=== PATIENT | male | born 1940 | race Caucasian/White ===

== ENCOUNTER 2016-10-19 11:04 | Inpatient (IN) | payer MEDICARE, BC ==
[2016-10-19] MEDS ORDERED: Famotidine 20 MG/2 ML SDV IVPUSH ONE (11:06)
--- NOTE | 2016-10-19 11:06 | EDM.PDOC ---
ED HISTORY OF PRESENT ILLNESS - General Chief Complaint: Respiratory Problem Stated Complaint: shortness of breath Time Seen by Provider: 10/19/16 11:05 Source of Information: Reports: Patient, Family (), Old records ([facility] chart/EMR) History Limitations: Reports: Respiratory distress - History of Present Illness INITIAL COMMENTS - FREE TEXT/NARRATIVE: Patient was brought to the emergency room via private automobile by his after brief initial evaluation by his regular provider, Tr Newman PA-C, at the [facility], with no treatment given in that clinic. The patient apparently was provided an IM injection of either Depo-Medrol and/or IM Rocephin on 10/14/16. The patient has had some progressive mostly clear productive cough during the last week with progressive dyspnea since about 8:30 this morning despite taking his triple nebulizer treatment and also 1000 mg of Tylenol at about 9 a.m. He also took his other morning medications. The patient denies any chest pain/pressure, heart flutter, dizziness, orthostasis, orthopnea, diaphoresis, paresthesias, recent decreased exercise tolerance, or any other anginal-type symptoms, although his overall activity level is low secondary to his O2 dependent COPD. The patient was recently hospitalized in this facility in June or with some mild increased dependent edema over the last few days. The patient has increased his home O2 from 2 L per minute to 3 L per minute by nasal cannula this morning. No recent history of abdominal pain, heartburn, nausea, diarrhea, melena, gross hematochezia, or any food intolerance, including fatty foods, etc., although the patient did have some mild viral GE symptoms last week. He did get his influenza booster this season with no known exposure to infection. He denies any recent fever, etc. He does complain of some mild diffuse arthralgias Timing/Duration: Reports: Week(s): (As above), Getting worse Severity: severe (Dyspnea) Location, General: Reports: generalized (Arthralgias as above). Denies: face, neck, chest, abdomen, back, pelvis, upper extremity, left, upper extremity, right Quality: Reports: Ache Improves with: Reports: None Worsens with: Reports: None Context, General: Reports: Other (As above) Associated Symptoms (General): Reports: cough, cough w sputum, shortness of breath. Denies: confusion, chest pain, diaphoresis, fever/chills, headaches, loss of appetite, malaise, nausea/vomiting, weakness Treatments GRAVITY PROSPECTING OBSERVER: Reports: Acetaminophen, Other medication(s) (As above) - Related Data Allergies/ADRs: Allergies Allergy/AdvReac Type Severity Reaction Status Date / Time celecoxib Allergy Cannot Verified 06/29/16 12:00 Remember diltiazem Allergy Cannot Verified 06/29/16 12:00 Remember metoprolol Allergy Cannot Verified 06/29/16 12:00 Remember Tmxydad-Ati-Tlj Reductase Allergy Muscle Verified 10/19/16 11:35 Inhibitor Aches tiotropium bromide Allergy URINARY Verified 10/19/16 11:39 [From Spiriva with RETENTION HandiHaler] Home Meds: Home Meds Albuterol/Ipratropium [DuoNeb 3.0-0.5 MG/3 ML] 3 ml INH DAILY@1200 05/04/14 [ History] Allopurinol [Zyloprim] 300 mg PO DAILY 05/04/14 [History] Arformoterol [Brovana] 2 ml INH BID 05/04/14 [History] Aspirin [Jaswinder Chewable Aspirin] 81 mg PO DAILY 05/04/14 [History] Bisoprolol Fumarate [Zebeta] 3 tab PO DAILY 05/04/14 [History] Budesonide [Pulmicort] 2 ml INH BID 05/04/14 [History] Calcium Carbonate [Tums Extra Strength] 750 mg PO ASDIRECTED PRN 05/04/14 [ History] Cholecalciferol (Vitamin D3) [Vitamin D] 400 unit PO BID 05/04/14 [History] Furosemide [Furosemide] 40 mg PO DAILY 05/04/14 [History] Gabapentin [Neurontin] 300 mg PO TID 05/04/14 [History] Multivitamin [Multivitamins] 1 tab PO DAILY 05/04/14 [History] Omeprazole 20 mg PO BID 05/04/14 [History] predniSONE [Prednisone] 2 tab PO DAILY 05/04/14 [History] Lancets 1 strip .XX ASDIRECTED 10/01/14 [History] Albuterol/Ipratropium [Combivent Respimat] 1 puff INH QID 06/29/16 [History] Carboxymethylcellulose Sodium [Refresh Tears 0.5%] 1 drop EYEBOTH TID 06/29/16 [ History] Furosemide 20 mg PO DAILY@1200 06/29/16 [History] Ibuprofen 200 mg PO Q6HR PRN 06/29/16 [History] Insulin Detemir [Levemir Flextouch] 17 units SUBCUT QAM 06/29/16 [History] SitaGLIPtin [Januvia] 100 mg PO DAILY 06/29/16 [History] hydrOXYzine Pamoate [Hydroxyzine Pamoate] 25 mg PO TID PRN 06/29/16 [History] Albuterol Sulfate 2.5 mg NEB Q4H PRN 10/19/16 [History] Doxycycline [Vibramycin] 100 mg PO BID 10/19/16 [History] Hydrocortisone Acetate [Anusol-Hc] 25 mg RECTAL BID 10/19/16 [History] Past Medical History HEENT History: Reports: Cataract, Hard of hearing, Impaired vision, Macular degeneration, Other (see below). 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 Denies: Afib, Blood clots/VTE/DVT, Bypass, PR, PTCA, Stents, Syncope Other Cardiovascular History: PVCs, bigeminy, complete right bundle branch block , PACs, cardiomegaly with diastolic dysfunction by echocardiogram, recurrent CHF , tricuspid valve insufficiency, infrarenal abdominal aortic aneurysm initially diagnosed in 2006, chronic lymphedema of the lower extremities Respiratory History: Reports: Bronchitis, recurrent, COPD, Pneumonia, recurrent , Pulmonary fibrosis, Sleep apnea, Other (see below). Denies: Intubation, previous, PE, Pneumothorax, TB Other Respiratory History: O2 and steroid-dependent COPD with pulmonary fibrosis by chest x-ray, nasal CPAP therapy at 16 cm water pressure with 2 L per minute oxygen bleed Gastrointestinal History: Reports: Chronic constipation, Colon polyp, Diverticulosis, Gastritis, GERD, Helicobacter pylori, PUD, Other (see below). Denies: Celiac disease, Cholelithiasis, Chronic diarrhea, Fecal incontinence, GI bleed, Hepatitis, Hiatal hernia, Inflammatory bowel disease, Irritable bowel syndrome, Jaundice, Pancreatitis Other Gastrointestinal History: Severe diverticulosis of the descending colon by colonoscopy on 09/25/09, GERD with history of esophagitis and upper GI bleed on 09/20/09, peptic ulcer and duodenitis by EGD with previously treated H. pylori , umbilical hernia, benign hepatic cysts by CT scan on 05/26/98 Genitourinary History: Reports: Acute renal failure, BPH, Chronic renal insuffiency, Diabetic nephropathy, Prostate disorder, Renal disease, Other (see below). Denies: Dialysis, Renal calculus, STD, Urinary incontinence, UTI, recurrent Other Genitourinary History: Acute renal failure with secondary hypotension secondary to NSAIDs use on 10/01/14, BPH with history of PSA elevation, end- stage renal disease-stage III, erectile dysfunction Musculoskeletal History: Reports: Arthritis, Back pain, chronic, Fracture, Gout , Neck pain, chronic, Osteoarthritis, Osteoporosis, Other (see below). Denies: Amputation, RA, SLE Other Musculoskeletal History: Spinal stenosis at L4-5 with disc prolapse, positive NENO however no known SLE, proximal left fibular fracture in September 2014 Neurological History: Reports: Neuropathy, diabetic, Neuropathy, peripheral. Denies: Alzheimers disease, Brain injury, Cerebral aneurysms, Concussion, CVA, Headaches, chronic, Head trauma, Migraines, MS, Parkinson's, Seizure, TIA Psychiatric History: Reports: None. Denies: Abuse, victim of, ADD, ADHD, Addiction, Anxiety, Dementia, Depression, Panic attack, Psych Hospitalization(s) , PTSD, Suicide attempt, Suicidal ideation Endocrine/Metabolic History: Reports: Diabetes, type II, IDDM, Osteoporosis. Denies: Diabetes, type I, Hypothyroidism Hematologic History: Reports: None. Denies: Anemia, Blood transfusion(s), Iron deficiency Immunologic History: Reports: None. Denies: AIDS, HIV, SLE Oncologic (Cancer) History: Reports: Squamous cell carcinoma, Other (see below) . 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 Denies: Eczema, Psoriasis - Infectious Disease History Infectious Disease History: Reports: Chicken pox, Helicobacter pylori, Mumps, Shingles. Denies: C-difficile, Measles, Meningitis, Mononucleosis, MRSA, Pertussis (whooping cough), Rheumatic Fever, Rubella, Scarlet fever, TB, VRE - Past Surgical History Head Surgeries/Procedures: Reports: None HEENT Surgical History: Reports: Cataract surgery, Laser surgery, Oral surgery, Tonsillectomy, Other (see below). Denies: Detached retina, Eye surgery, LASIK, Myringotomy w tube(s), Naso-sinus surgery Other HEENT Surgeries/Procedures: Right cataract surgery on 05/23/03, left cataract surgery on 06/12/04, tonsillectomy at age 9, left eye YAG treatment, complete teeth extraction Cardiovascular Surgical History: Reports: None. Denies: Pacer, Varicose Respiratory Surgical History: Reports: None. Denies: Lung Biopsies GI Surgical History: Reports: Colonoscopy, EGD, Other (see below). Denies: Appendectomy, Cholecystectomy, Hernia, inguinal, Hernia repair/other Other GI Surgeries/Procedures: Last Colonoscopy and EGD on 09/25/09, small bowel series on 10/02/09 Male Surgical History: Reports: Prostatectomy, TURP-Transurethral resection of prostate, Other (see below). Denies: Circumcision, Vasectomy Other Male Surgeries/Procedures: Suprapubic partial prostatectomy in September 2004 with no evidence of prostate cancer despite previous PSA elevation Endocrine Surgical History: Reports: None. Denies: Thyroid biopsy Neurological Surgical History: Reports: Lumbar spine, Other (see below). Denies : C-Spine Other Neurological Surgeries/Procedures: Unknown type of back surgeries x2 in the lumbar region Musculoskeletal Surgical History: Reports: None. Denies: Amputation, Arthroscopic procedure, Carpal tunnel, Ganglion cyst, Joint replacement, ORIF, Shoulder surgery Oncologic Surgical History: Reports: Other (see below) Other Oncologic Surgeries/Procedures: Mohs procedure as above Dermatological Surgical History: Reports: Skin biopsy, Other (see below) Other Dermatological Surgeries/Procedures: Mohs procedure as above - Past Imaging History Past Imaging History: Reports: Cardiac echo (Last echocardiogram at [facility] in September 2014 with ejection fraction of 60% and results as above, previous echocardiogram on 12/17/11), Carotid US (09/13/11), CAT scan (Negative CTA of the chest on 07/01/16, CT scan of the abdomen and pelvis with last evaluation in November 2013, CT of the chest on 05/26/98), DEXA scan (01/24/09), Holter monitor (12/18/03), MRI (Lumbar spine on 05/03/06), PFT (Last on 06/30/06) , Sleep study (11/27/11), Stress testing (Dobutamine Cardiolite stress test on 09/02 with evidence of inferior wall ischemia and ejection fraction of 55%), Ultrasound (Bilateral renal ultrasound in September 2014), Venous doppler (Last venous Doppler studies of the lower extremities on 06/29/16 with previous evaluation at [facility] in September 2014), Other (see below) (VQ scan at [facility] in September 1999) Social & Family History - Family History HEENT: Reports: None. Denies: Allergic rhinitis, Glaucoma, Macular degeneration , Retinal detachment Cardiac: Reports: CAD, Hypertension, PR, Other (see below). Denies: Afib, Aneurysm, Arrhythmia, Blood clots/VTE/DVT, Bypass, High cholesterol, Pacemaker, PVD/COD, Stent Other Cardiac Family History: Maternal uncle with fatal PR at age 42, another maternal uncle with fatal PR at age 48, mother with hypertension, patient denies history of coronary artery disease in sister despite [place] records Respiratory: Reports: COPD, Sleep apnea, Other (see below). Denies: Asthma, PE , Pneumothorax Other Respiratory Family Hisory: Brother with COPD and sleep apnea with history of tobacco use GI: Denies: Celiac disease, Cholelithiasis, Colon polyps, GERD, GI bleed, Inflammatory bowel disease, Irritable bowel syndrome, PUD : Reports: None. Denies: Dialysis, Renal calculus, Renal disease/ insufficiency OBGYN: Reports: None. Denies: Dysfunctional uterine bleeding, Endometriosis, Recurrent spontaneous Musculoskeletal: Reports: Arthritis, Osteoarthritis, Other (see below). Denies : Gout, RA, SLE Other Musculoskeletal Family History: Brother with osteoarthritis Neurological: Reports: Cerebral aneurysms, CVA, Neuropathy, peripheral, Other ( see below). Denies: Alzheimers disease, Dementia, MS, Parkinson's, Seizure, TIA Other Neurological Family History: Sister with fatal cerebral aneurysm at age 42 , maternal uncle with fatal hemorrhagic CVA at age 65 , patient denies CVA in brother despite [place] records, brother with peripheral neuropathy Psychiatric: Reports: None. Denies: Abuse, victim of, ADD, ADHD, Depression, Eating disorders, Psych hospitalization(s), Suicide attempt Endocrine/Metabolic: Reports: None. Denies: Diabetes, type I, Diabetes, type II , Hypothyroidism, Obesity/MBI 30+ Hematologic: Reports: None. Denies: Anemia Immunologic: Reports: None. Denies: AIDS, HIV, SLE Dermatologic: Denies: Eczema, Psoriasis Oncologic: Reports: Breast, Other (see below). Denies: Colon, Hodgkin's lymphoma, Leukemia, Metastatic, Prostate, Skin Other Oncologic Family History: Mother with unknown type of fatal cancer at age 65, sister with breast cancer in her 60s - Tobacco Use Smoking Status *Q: Former Smoker Tobacco Use Within Last Twelve Months: No Years of Tobacco use: 51 Packs/Tins Daily: 2 Used Tobacco, but Quit: Yes Month Tobacco Last Used: 1-1/2 and 3 packs of cigarettes per day between ages 16 and 67 Smoking Cessation Information Provided To Patient: No Second Hand Smoke Exposure: No Second Hand Smoke Education Provided: No - Caffeine Use Caffeine Use: Reports: Coffee, Soda. Denies: Energy drinks, Tea Caffeine Use Comment: 3-4 cups of coffee per day, 1 soda per week - Alcohol Use Alcohol Use History: Yes Days Per Week of Alcohol Use: 2 (No previous DWIs, problems with alcohol abuse, etc.) Number of Drinks Per Day: 2 (Usually whiskey) Total Drinks Per Week: 4 Alcohol Use in Last Twelve Months: Yes Alcohol Use Frequency: Socially - Recreational Drug Use Recreational Drug Use: No Drug Use in Last 12 Months: No Recreational Drug Type: Denies: Amphetamines (Speed), Cocaine, Heroin, Inhalants (Glues, Solvents, Aerosols), LSD (Acid), Marijuana/Hashish, Methamphetamine, Morphine - Living Situation & Occupation Living situation: Reports: (1963, 3 children) 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 Denies: fever, chills, malaise, weakness , fatigue, night sweats, diaphoresis, decreased appetite, weight loss, weight gain HEENT: Reports: Glasses, Hearing loss (Stable by history), Rhinitis. Denies: Dental pain, Ear discharge, Ear pain, Eye pain, Throat pain, Throat swelling, Vertigo, Vision change Respiratory: Reports: Shortness of Breath, Wheezing, Cough, Sputum. Denies: Pleuritic Chest Pain, Hemoptysis Cardiovascular: Reports: Edema. Denies: Chest pain, Blood pressure problem, Dyspnea on exertion, Lightheadedness, Orthopnea, Palpitations, PND, Syncope Endocrine: Reports: high glucose (163 mg percent this morning with patient eating breakfast). Denies: fatigue GI/Abdominal: Reports: No symptoms. Denies: Abdominal pain, Anorexia, Black stool, Bloody stool, Constipation, Diarrhea, Decreased appetite, Difficulty swallowing, Distension, Flatus, Hematemesis, Hematochezia, Melena, Nausea, Stool incontinence, Vomiting : Reports: no symptoms. Denies: dysuria, flank pain, frequency, hematuria, incontinence, pain, urgency, urinary retention Musculoskeletal: Reports: joint pain (Generalized as above). Denies: neck pain , shoulder pain, arm pain, back pain, leg pain, joint swelling, muscle pain, muscle stiffness Skin: Reports: bruising (Abdominal region secondary to insulin therapy). Denies : diaphoresis, wound Neurological: Reports: Numbness (Stable chronic), Paresthesia (As above), Tingling (As above), Difficulty Walking (Uses walker and electric cart at home) . Denies: Confusion, Dizziness, Weakness Psychiatric: Reports: No symptoms. Denies: Agitation, Anxiety, Confusion, Hallucinations Hematologic/Lymphatic: Reports: no symptoms Immunologic: Reports: no symptoms ED EXAM, GENERAL - Physical Exam Exam: See Below Exam Limited By: Respiratory distress General Appearance: alert, WD/WN, mild distress. No: anxious, lethargic, obtunded Eye Exam: bilateral eye: EOMI, normal inspection (No nystagmus), PERRL Ears: normal external exam, normal canal, normal TMs, hearing loss (Stable by history moderate bilateral presbycusis). No: hearing grossly normal Nose: normal mucosa, no blood, nasal drainage, clear rhinorrhea. No: nasal flaring Throat/Mouth: Normal inspection, Normal lips, Normal gums, Normal oropharynx, Normal voice, No airway compromise. No: Normal teeth (Complete dentures uppers and lowers), Dysphagia, Perioral cyanosis Head: atraumatic, normocephalic. No: facial swelling, facial tenderness, sinus tenderness Neck: normal inspection, supple, non-tender, full range of motion, carotid bruit (Bilateral carotid bruits-mild). No: lymphadenopathy (L), lymphadenopathy (R), thyromegaly Respiratory/Chest: chest non-tender, respiratory distress (Mild), rales (Mild to moderate diffuse), rhonchi (Moderate diffuse), wheezing (Moderate diffuse), accessory muscle use, retractions, prolonged expiration. No: stridor, pleural rub, splinting Cardiovascular: normal peripheral pulses, regular rate, rhythm (With exception of occasional PVCs as below), no gallop, no JVD, no murmur, no rub, extra beats. No: no edema (Dependent edema as below), gallop/S3, gallop/S4, friction rub Peripheral Pulses: 2+: radial (L), radial (R), dorsalis pedis (L), dorsalis pedis (R) GI/Abdominal: normal bowel sounds, soft, non tender, no organomegaly, no distention, no abnormal bruit, no mass, hernia (4 centimeter in diameter nonincarcerated umbilical hernia, 4 cm right lower quadrant ecchymosis from insulin injection). No: guarding (Male) Exam: Deferred Rectal (Males) Exam: Deferred Back Exam: normal inspection, full range of motion. No: CVA tenderness (L), CVA tenderness (R), muscle spasm Extremities: normal range of motion, non-tender, normal capillary refill, pedal edema (+2 bilateral pedal/pretibial edema). No: Gumaro's Sign Neurological: alert, oriented, CN II-XII intact, normal cognition, normal gait, normal reflexes (Negative Babinski's), no motor/sensory deficits Psychiatric: normal affect, normal mood Skin Exam: Warm, Dry, Intact, Normal color, No rash, Ecchymosis. No: Diaphoretic, Pallor, Wound/incision Lymphatic: no adenopathy EKG INTERPRETATION EKG Date: 10/19/16 Time: 11:27 Rhythm: NSR (Occasional PVCs) Rate (beats/min): 90 Interior: RAD-right axis deviation P-wave: enlarged (Mild diffuse biphasic P waves) QRS: RBBB (QRS interval of 0.13 seconds representing a complete right bundle branch block with previous T-wave inversion in lead V1 and V2 extending to V3 today) ST-T: other (As above) QT: normal KY/PQ Interval: 0.16 seconds Comparison: change from previous EKG (As above since last EKG on 07/02/16) EKG Interpretation Comments: 1. Progressive anterior wall cardiac ischemia 2. Complete right bundle branch Course - Vital Signs Last Recorded V/S: Last Vital Signs Temp 36.6 C 10/19/16 11:21 Pulse 83 10/19/16 12:42 Resp 21 H 10/19/16 12:42 BP 121/62 10/19/16 12:42 Pulse Ox 97 10/19/16 12:42 Vital Signs - 24 hr 10/19/16 10/19/16 10/19/16 11:06 11:09 11:21 Temperature [ 36.6 C 36.6 C Temporal] Pulse, 84 90 Peripheral [ Right Pulse Oximetry] Respiratory 27 H 24 H Rate Blood Pressure 144/111 H 127/52 L [Right Upper Arm] O2 Sat by Pulse 94 L 98 Oximetry O2 Sat by Pulse 94 L Oximetry [ Nasal Cannula] 10/19/16 10/19/16 10/19/16 11:30 11:40 11:51 Temperature [ Temporal] Pulse, 79 89 88 Peripheral [ Right Pulse Oximetry] Respiratory 23 H 22 H 22 H Rate Blood Pressure 126/74 142/62 H 134/50 L [Right Upper Arm] O2 Sat by Pulse 97 96 97 Oximetry O2 Sat by Pulse Oximetry [ Nasal Cannula] 10/19/16 10/19/16 12:21 12:42 Temperature [ Temporal] Pulse, 84 83 Peripheral [ Right Pulse Oximetry] Respiratory 21 H 21 H Rate Blood Pressure 140/66 121/62 [Right Upper Arm] O2 Sat by Pulse 98 97 Oximetry O2 Sat by Pulse Oximetry [ Nasal Cannula] - Orders/Labs/Meds Orders: Active Orders 24 hr Category Date Time Status Cardiac Monitoring [RC] . DIRECTED Care 10/19/16 11:06 Active Oxygen Therapy, ED [RC] CONTINUOUS Care 10/19/16 11:06 Active Peripheral IV Care [RC] . DIRECTED Care 10/19/16 11:06 Active Pulse Oximetry [RC] CONTINUOUS Care 10/19/16 11:06 Active RT Aerosol Therapy [RC] ASDIRECTED Care 10/19/16 11:08 Active Up With Assistance [RC] PFP Care 10/19/16 11:06 Active Vital Signs [RC] PFP Care 10/19/16 11:06 Active Nothing per Oral Now Diet [DIET] Diet 10/19/16 Breakfast Active Chest 1V Frontal [CR] Stat Exams 10/19/16 11:06 Taken CULTURE BLOOD [BC] Stat Lab 10/19/16 11:15 Received CULTURE BLOOD [BC] Stat Lab 10/19/16 11:15 Received CULTURE SPUTUM + SMEAR [RM] Routine Lab 10/19/16 11:08 Uncollected Sodium Chloride 0.9% [Saline Flush] Med 10/19/16 11:06 Active 10 ml FLUSH ASDIRECTED PRN Blood Culture x2 Reflex Set [OM.PC] Urgent Oth 10/19/16 11:08 Ordered Obtain Past Medical Record [OM.PC] Urgent Oth 10/19/16 11:06 Active Peripheral IV Insertion Adult [OM.PC] Stat Oth 10/19/16 11:06 Ordered Resuscitation Status Stat Resus Stat 10/19/16 11:06 Ordered Medication Orders Enoxaparin Sodium (Lovenox) 120 mg SUBCUT Q24H [facility] Last Admin: 10/19/16 12:57 Dose: 120 mg Sodium Chloride (Saline Flush) 10 ml FLUSH ASDIRECTED PRN PRN Reason: Keep Vein Open Last Admin: 10/19/16 12:09 Dose: 10 ml Labs: Laboratory Tests 10/19/16 10/19/16 10/19/16 Range/Units 11:15 11:15 11:15 WBC (4.0-10.2) K/uL RBC (4.33-5.41) M/uL Hgb (13.1-16.8) g/dL Hct (39.0-49.0) % MCV (84.0-98.0) fL MCH (28.2-33.3) pg MCHC (31.7-36.0) g/dL RDW (11.2-14.1) % Plt Count (150-350) K/uL Neut % (Auto) (45.0-80.0) % Lymph % (Auto) (10.0-50.0) % Dawson % (Auto) (2.0-14.0) % Eos % (Auto) (0.0-5.0) % Baso % (Auto) (0.0-2.0) % Neut # (Auto) (1.40-7.00) K/uL Lymph # (Auto) (0.50-3.50) K/uL Dawson # (Auto) (0.00-1.00) K/uL Eos # (Auto) (0.00-0.50) K/uL Baso # (Auto) (0.00-0.20) K/uL PT 11.1 (9.8-11.7) SEC INR 1.0 APTT 27.4 (23.5-30.0) SEC D-Dimer, Quantitative 1020 H (0-400) ng/mL Sodium 137 (136-145) mmol/L Potassium 4.5 (3.5-5.1) mmol/L Chloride 98 (98-107) mmol/L Carbon Dioxide 28.7 (21.0-32.0) mmol/L BUN 36 H (7-18) mg/dL Creatinine 1.41 H (0.51-1.17) mg/dL Est Cr Clr Drug Dosing 44.58 mL/min Estimated GFR (MDRD) 49 mL/min Glucose 358 H* (74-106) mg/dL Lactic Acid (0.4-2.0) mmol/L Uric Acid 7.0 (2.6-7.2) mg/dL Calcium 8.4 L (8.5-10.1) mg/dL Magnesium 1.8 (1.8-2.4) mg/dL Total Bilirubin 0.3 (0.2-1.0) mg/dL AST 25 (15-37) U/L ALT 39 (12-78) U/L Alkaline Phosphatase 72 (46-116) IU/L Creatine Kinase 125 (26-308) U/L Creatine Kinase Index 4.0 H* (0.0-2.5) % CK-MB (CK-2) 5.00 H* (0.00-3.60) ng/mL Troponin I 0.012 (0.000-0.056) ng/mL [id number] Pept 333 H (0-125) pg/mL Total Protein 6.8 (6.4-8.2) g/dL Albumin 2.9 L (3.4-5.0) g/dL TSH, Ultra Sensitive 1.730 (0.358-3.740) mIU/mL H. pylori IgG Antibody (NEGATIVE) 10/19/16 10/19/16 10/19/16 Range/Units 11:15 11:15 11:20 WBC 11.7 H (4.0-10.2) K/uL RBC 3.31 L (4.33-5.41) M/uL Hgb 9.5 L (13.1-16.8) g/dL Hct 31.8 L (39.0-49.0) % MCV 96.1 D (84.0-98.0) fL MCH 28.7 (28.2-33.3) pg MCHC 29.9 L (31.7-36.0) g/dL RDW 16.9 H (11.2-14.1) % Plt Count 205 D (150-350) K/uL Neut % (Auto) 77.6 (45.0-80.0) % Lymph % (Auto) 10.1 (10.0-50.0) % Dawson % (Auto) 11.6 (2.0-14.0) % Eos % (Auto) 0.3 (0.0-5.0) % Baso % (Auto) 0.4 (0.0-2.0) % Neut # (Auto) 9.12 H (1.40-7.00) K/uL Lymph # (Auto) 1.18 (0.50-3.50) K/uL Dawson # (Auto) 1.36 H (0.00-1.00) K/uL Eos # (Auto) 0.03 (0.00-0.50) K/uL Baso # (Auto) 0.05 (0.00-0.20) K/uL PT (9.8-11.7) SEC INR APTT (23.5-30.0) SEC D-Dimer, Quantitative (0-400) ng/mL Sodium (136-145) mmol/L Potassium (3.5-5.1) mmol/L Chloride (98-107) mmol/L Carbon Dioxide (21.0-32.0) mmol/L BUN (7-18) mg/dL Creatinine (0.51-1.17) mg/dL Est Cr Clr Drug Dosing mL/min Estimated GFR (MDRD) mL/min Glucose (74-106) mg/dL Lactic Acid 3.8 H (0.4-2.0) mmol/L Uric Acid (2.6-7.2) mg/dL Calcium (8.5-10.1) mg/dL Magnesium (1.8-2.4) mg/dL Total Bilirubin (0.2-1.0) mg/dL AST (15-37) U/L ALT (12-78) U/L Alkaline Phosphatase (46-116) IU/L Creatine Kinase (26-308) U/L Creatine Kinase Index (0.0-2.5) % CK-MB (CK-2) (0.00-3.60) ng/mL Troponin I (0.000-0.056) ng/mL Qem-[id number] Pept (0-125) pg/mL Total Protein (6.4-8.2) g/dL Albumin (3.4-5.0) g/dL TSH, Ultra Sensitive (0.358-3.740) mIU/mL H. pylori IgG Antibody Negative (NEGATIVE) Meds: Medications Generic Name Dose Route Start Last Admin Trade Name Freq PRN Reason Stop Dose Admin Enoxaparin Sodium 120 mg 10/19/16 12:52 10/19/16 12:57 Lovenox SUBCUT 120 mg Q24H SALOMÓN Administration Sodium Chloride 10 ml 10/19/16 11:06 10/19/16 12:09 Saline Flush FLUSH 10 ml ASDIRECTED PRN Administration Keep Vein Open Discontinued Medications Generic Name Dose Route Start Last Admin Trade Name Freq PRN Reason Stop Dose Admin Albuterol/Ipratropium 3 ml 10/19/16 11:07 10/19/16 11:13 Duoneb 3.0-0.5 Mg/3 Ml NEB 10/19/16 11:08 3 ml ONETIME ONE Administration Aspirin 324 mg 10/19/16 12:14 10/19/16 12:19 Aspirin CHEW 10/19/16 12:15 324 mg ONETIME ONE Administration Clopidogrel Bisulfate 300 mg 10/19/16 12:14 10/19/16 12:19 Plavix PO 10/19/16 12:15 300 mg ONETIME ONE Administration Enoxaparin Sodium 120 mg 10/19/16 13:00 Lovenox SUBCUT Q24H SALOMÓN Famotidine 40 mg 10/19/16 11:06 10/19/16 11:30 Pepcid IVPUSH 10/19/16 11:07 40 mg ONETIME ONE Administration Furosemide 60 mg 10/19/16 11:45 10/19/16 12:07 Lasix IVPUSH 10/19/16 11:46 60 mg NOW ONE Administration Morphine Sulfate 2 mg 10/19/16 11:37 10/19/16 11:43 Morphine .XX 10/19/16 11:38 2 mg ONETIME ONE Administration Sodium Chloride 3 ml 10/19/16 11:37 10/19/16 11:43 Sodium Chloride 0.9% INH 10/19/16 11:38 3 ml ONETIME ONE Administration - Radiology Interpretation Free Text/Narrative:: 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 No pneumothorax noted. Departure - Departure Time of Disposition: 13:00 Disposition: Admitted As Inpatient 64 Condition: fair Clinical Impression: CHF, Congestive heart failure, D-dimer, elevated, Diabetes mellitus, Heart disease, HTN, Benign hypertension, Osteoarthritis, Peptic reflux disease, Renal insufficiency, Lactic acidosis, COPD, Moderate chronic obstructive pulmonary disease, Hypoalbuminemia - Problem List & Annotations (1) CHF, Congestive heart failure SNOMED Code(s): 99289522 Code(s): I50.9 - HEART FAILURE, UNSPECIFIED Status: Acute Priority: High Current Visit: Yes Annotation/Comment:: History of recurrent CHF with recent hospitalization as above. High-dose IV Lasix given in the emergency room with continuation of aggressive IV Lasix therapy with caution secondary to his history of renal insufficiency. Moderate CHF by chest x-ray with elevated BNP and some change in his troponin I. Additional evidence of elevated cardiac index with ASA and Plavix given after results were obtained. Initiated subcutaneous Lovenox therapy in the emergency room. Otherwise initiate standard rule out PR orders. Various therapeutic options were given to the patient and his , who are requesting further care in this facility for now. Cardiology consultation and/or transfer depending on his clinical course. Repeat EKG, chest x-ray, and labs in the a.m. No chest pain or anginal type symptoms. (2) COPD, Moderate chronic obstructive pulmonary disease SNOMED Code(s): 998745694 Code(s): J44.9 - CHRONIC OBSTRUCTIVE PULMONARY DISEASE, UNSPECIFIED Status : Acute Priority: Medium Current Visit: Yes Annotation/Comment:: Possible beginning right middle lobe pneumonia, however difficult to assess. Patient is afebrile with leukocytosis possibly secondary to stress reaction from his CHF. Blood cultures x2 collected. Sputum 2 to be obtained. Continue aggressive nebulizer therapy, which was also given in the emergency room. IV Solu-Medrol therapy with caution secondary to his diabetes (3) D-dimer, elevated SNOMED Code(s): 285345971 Code(s): R79.1 - ABNORMAL COAGULATION PROFILE Status: Acute Priority: High Current Visit: Yes Onset Date: 06/29/16 Annotation/Comment:: Chronic D-dimer elevation with negative chest and venous Doppler studies in June as above. D-dimer elevation actually improved from last hospitalization. (4) Diabetes mellitus SNOMED Code(s): 32769735 Code(s): E11.9 - TYPE 2 DIABETES MELLITUS WITHOUT COMPLICATIONS Status: Acute Priority: Medium Current Visit: Yes Annotation/Comment:: Glycosylated hemoglobin in the a.m. Sliding scale during this hospitalization. Continue to observe his diabetic nephropathy, renal function, etc. closely with additional history of diabetic neuropathy and diabetic retinopathy (5) HTN, Benign hypertension SNOMED Code(s): 58321985 Code(s): I10 - ESSENTIAL (PRIMARY) HYPERTENSION Status: Acute Priority: High Current Visit: Yes Annotation/Comment:: Blood pressures under good control in the emergency room (6) Heart disease SNOMED Code(s): 82564966 Code(s): I51.9 - HEART DISEASE, UNSPECIFIED Status: Acute Priority: High Current Visit: Yes Annotation/Comment:: Initiate standard rule out PR orders as above with chest pain protocol initiated after the blood test results were obtained (7) Lactic acidosis SNOMED Code(s): 27520660 Code(s): E87.2 - ACIDOSIS Status: Acute Priority: High Current Visit: Yes Onset Date: 06/29/16 Annotation/Comment:: No evidence of sepsis clinically with lactic acid to be repeated in etc. cardiac enzymes and also in the a.m. Consider ABGs depending on his clinical course (8) Osteoarthritis SNOMED Code(s): 355704138 Code(s): M19.90 - UNSPECIFIED OSTEOARTHRITIS, UNSPECIFIED SITE Status: Acute Priority: Medium Current Visit: Yes Annotation/Comment:: Gen. arthralgias recently. Note high-dose oral steroid therapy (9) Peptic reflux disease SNOMED Code(s): 09609548 Code(s): K21.9 - GASTRO-ESOPHAGEAL REFLUX DISEASE WITHOUT ESOPHAGITIS Status: Acute Priority: Medium Current Visit: Yes Annotation/Comment:: IV Protonix given as GI prophylaxis in the emergency room no evidence of acute GI bleed with Lovenox to be initiated with caution (10) Hypoalbuminemia SNOMED Code(s): 769511270 Code(s): E88.09 - OTH DISORDERS OF PLASMA-PROTEIN METABOLISM, NEC Status: Chronic Priority: Medium Current Visit: Yes Annotation/Comment:: High- protein Glucerna supplements with caution secondary to his renal function (11) Renal insufficiency SNOMED Code(s): 935328567 Code(s): N28.9 - DISORDER OF KIDNEY AND URETER, UNSPECIFIED Status: Chronic Priority: Medium Current Visit: Yes Annotation/Comment:: IV Lasix therapy as above. Continue to observe closely (12) Anemia SNOMED Code(s): 222841786 Code(s): D64.9 - ANEMIA, UNSPECIFIED Status: Chronic Priority: Medium Current Visit: Yes Annotation/Comment:: Stable anemia from hospitalization in June. Repeat blood work in the a.m. Hemoccults during this hospitalization Qualifiers: Anemia type: other cause Other causes of anemia: chronic disease, kidney Qualified Code(s): N18.9 - Chronic kidney disease, unspecified; D63.1 - Anemia in chronic kidney disease - Problem List Review Problem List Initiated/Reviewed/Updated: Yes - My Orders Last 24 Hours: My Active Orders 10/19/16 11:06 Cardiac Monitoring [RC] . DIRECTED Oxygen Therapy, ED [RC] CONTINUOUS Peripheral IV Care [RC] . DIRECTED Pulse Oximetry [RC] CONTINUOUS Up With Assistance [RC] PFP Vital Signs [RC] PFP Chest 1V Frontal [CR] Stat Sodium Chloride 0.9% [Saline Flush] 10 ml FLUSH ASDIRECTED PRN Obtain Past Medical Record [OM.PC] Urgent Peripheral IV Insertion Adult [OM.PC] Stat Resuscitation Status Stat 10/19/16 11:08 RT Aerosol Therapy [RC] ASDIRECTED CULTURE SPUTUM + SMEAR [RM] Routine Blood Culture x2 Reflex Set [OM.PC] Urgent 10/19/16 11:15 CULTURE BLOOD [BC] Stat CULTURE BLOOD [BC] Stat 10/19/16 Breakfast Nothing per Oral Now Diet [DIET] - Assessment/Plan Admission H&P: Please use this note as an admission H&P Last 24 Hours: My Active Orders 10/19/16 11:06 Cardiac Monitoring [RC] . DIRECTED Oxygen Therapy, ED [RC] CONTINUOUS Peripheral IV Care [RC] . DIRECTED Pulse Oximetry [RC] CONTINUOUS Up With Assistance [RC] PFP Vital Signs [RC] PFP Chest 1V Frontal [CR] Stat Sodium Chloride 0.9% [Saline Flush] 10 ml FLUSH ASDIRECTED PRN Obtain Past Medical Record [OM.PC] Urgent Peripheral IV Insertion Adult [OM.PC] Stat Resuscitation Status Stat 10/19/16 11:08 RT Aerosol Therapy [RC] ASDIRECTED CULTURE SPUTUM + SMEAR [RM] Routine Blood Culture x2 Reflex Set [OM.PC] Urgent 10/19/16 11:15 CULTURE BLOOD [BC] Stat CULTURE BLOOD [BC] Stat 10/19/16 Breakfast Nothing per Oral Now Diet [DIET] Assessment:: As above Plan: As above. Extensive precautions were given to the patient and his , who is in agreement with the treatment plan. The patient will require about 3-4 days of inpatient/acute care secondary to multiple health problems as above. He will be evaluated by [facility] physician tomorrow with resumption of care by me on 10/21
[2016-10-19] MEDS ORDERED: Albuterol/Ipratropium 3.0-0.5 MG/3 ML Neb Soln NEB ONE (11:07)
[2016-10-19] MEDS ORDERED: Morphine 2 MG/ML Syringe ONE (11:37)
[2016-10-19] MEDS ORDERED: Sodium Chloride 0.9% Inhalation Soln 3 ML Neb INH ONE (11:37)
[2016-10-19] MEDS ORDERED: Furosemide 40 MG/4 ML VIAL IVPUSH ONE (11:45)
[2016-10-19] MEDS: Sodium Chloride 0.9% 10 ML Syringe FLUSH PRN ×2 (12:09→16:12)
[2016-10-19] MEDS ORDERED: Aspirin 81 MG Tab.Chew CHEW ONE (12:14)
[2016-10-19] MEDS ORDERED: Clopidogrel 75 MG Tab PO ONE (12:14)
[2016-10-19] MEDS ORDERED: Enoxaparin 40 MG/0.4 ML Syringe SUBCUT SCH ×2 (12:52→13:00)
[2016-10-19] MEDS ORDERED: Morphine 2 MG/ML Syringe PRN (13:26)
[2016-10-19] MEDS ORDERED: Sodium Chloride 0.9% Inhalation Soln 3 ML Neb INH PRN (13:28)
[2016-10-19] MEDS ORDERED: Albuterol 0.083% 2.5 MG/3 ML Neb Soln INH PRN (14:00)
[2016-10-19] MEDS ORDERED: Temazepam 15 MG Cap PO PRN (15:30)
[2016-10-19] MEDS ORDERED: Sodium Chloride 0.9% 10 ML Syringe FLUSH PRN (15:30)
[2016-10-19] MEDS ORDERED: Acetaminophen 325 MG Tab PO PRN (16:00)
[2016-10-19] MEDS: cefTRIAXone 1 GM in Sodium Chloride 0.9% 100 ML IV SCH (16:12)
[2016-10-19] MEDS: methylPREDNISolone Sodium Succinate 125 MG/2 ML SDV IVPUSH SCH (16:12)
[2016-10-19] MEDS: Albuterol/Ipratropium 3.0-0.5 MG/3 ML Neb Soln NEB PRN (16:14)
[2016-10-19] MEDS ORDERED: Insulin Aspart 100 Units/ML 3 ML Pen SUBCUT SCH (16:30)
[2016-10-19] MEDS: Insulin Aspart 100 Units/ML 3 ML Pen SUBCUT SCH ×2 (17:08→22:05)
[2016-10-19] MEDS: Polyvinyl Alcohol 1.4% Ophth Soln 15 ML Bottle EYEBOTH SCH (17:35)
[2016-10-19] MEDS: Arformoterol 15 MCG/2 ML Neb Soln INH SCH (17:36)
[2016-10-19] MEDS: Potassium Chloride 20 MEQ Tab.ER PO SCH (17:37)
[2016-10-19] MEDS: Doxycycline 100 MG Cap PO SCH (17:38)
[2016-10-19] MEDS: Gabapentin 300 MG Cap PO SCH (17:38)
[2016-10-19] MEDS: Dextromethorphan/guaiFENesin 600-30 MG Tab.ER PO SCH (17:38)
[2016-10-19] MEDS: Furosemide 40 MG/4 ML VIAL IVPUSH SCH (17:39)
[2016-10-19] MEDS ORDERED: Lisinopril 10 MG Tab PO SCH (18:00)
[2016-10-19] MEDS: Albuterol/Ipratropium 3.0-0.5 MG/3 ML Neb Soln NEB SCH (19:26)
[2016-10-19] MEDS: Budesonide 0.5 MG/2 ML Neb Susp NEB SCH (19:29)
[2016-10-19] MEDS ORDERED: Sodium Chloride 0.9% 1,000 ML IV SCH (22:45)
[2016-10-19] MEDS ORDERED: Nitroglycerin/D5W 25 MG/250 ML BOTTLE IV SCH (22:45)
[2016-10-20] MEDS: Albuterol/Ipratropium 3.0-0.5 MG/3 ML Neb Soln NEB SCH ×3 (02:57→14:18)
[2016-10-20] MEDS: Furosemide 40 MG/4 ML VIAL IVPUSH SCH ×2 (02:58→10:12)
[2016-10-20] MEDS: methylPREDNISolone Sodium Succinate 125 MG/2 ML SDV IVPUSH SCH (03:29)
[2016-10-20] MEDS: cefTRIAXone 1 GM in Sodium Chloride 0.9% 100 ML IV SCH (03:30)
[2016-10-20] MEDS ORDERED: Insulin Aspart 100 Units/ML 3 ML Pen SUBCUT SCH ×2 (04:00→11:30)
[2016-10-20] MEDS: Albuterol/Ipratropium 3.0-0.5 MG/3 ML Neb Soln NEB PRN ×2 (06:16→10:46)
[2016-10-20] MEDS: Arformoterol 15 MCG/2 ML Neb Soln INH SCH (07:36)
[2016-10-20] MEDS: Budesonide 0.5 MG/2 ML Neb Susp NEB SCH (07:36)
[2016-10-20] MEDS: Dextromethorphan/guaiFENesin 600-30 MG Tab.ER PO SCH (07:36)
[2016-10-20] MEDS: Polyvinyl Alcohol 1.4% Ophth Soln 15 ML Bottle EYEBOTH SCH ×2 (07:36→11:18)
[2016-10-20] MEDS: Potassium Chloride 20 MEQ Tab.ER PO SCH ×2 (07:36→11:17)
[2016-10-20] MEDS: Gabapentin 300 MG Cap PO SCH ×2 (07:36→11:17)
[2016-10-20] MEDS: Doxycycline 100 MG Cap PO SCH (07:37)
[2016-10-20] MEDS: Sodium Chloride 0.9% 10 ML Syringe FLUSH PRN ×2 (07:39→10:12)
[2016-10-20] MEDS ORDERED: Allopurinol 100 MG Tab PO SCH (08:00)
[2016-10-20] MEDS ORDERED: Famotidine 20 MG/2 ML SDV IVPUSH SCH (08:00)
[2016-10-20] MEDS ORDERED: Bisoprolol 5 MG Tab PO SCH (08:00)
[2016-10-20] MEDS ORDERED: Enoxaparin 60 MG/0.6 ML Syringe SUBCUT SCH (13:00)
[2016-10-20 15:13] VITALS: BP 139/76
--- NOTE | 2016-10-20 17:06 | PCM.DCSUM1 ---
Discharge Summary - Discharge Data Discharge Date: 10/20/16 Discharge Disposition: DC/Tfer to Acute Hospital 02 Condition: Good - Discharge Diagnosis/Problem(s) (1) CHF, Congestive heart failure SNOMED Code(s): 62513740 ICD Code: I50.9 - HEART FAILURE, UNSPECIFIED Status: Acute Priority: High Problem Details: History of recurrent CHF with recent hospitalization as above. High-dose IV Lasix given in the emergency room with continuation of aggressive IV Lasix therapy with caution secondary to his history of renal insufficiency. Moderate CHF by chest x-ray with elevated BNP and some change in his troponin I. Additional evidence of elevated cardiac index with ASA and Plavix given after results were obtained. Initiated subcutaneous Lovenox therapy in the emergency room. Otherwise initiated standard rule out MA orders. Various therapeutic options were given to the patient and his , who requested further care in this facility for now. No chest pain or anginal type symptoms. (2) COPD, Moderate chronic obstructive pulmonary disease SNOMED Code(s): 106534749 ICD Code: J44.9 - CHRONIC OBSTRUCTIVE PULMONARY DISEASE, UNSPECIFIED Status : Acute Priority: Medium Problem Details: Possible beginning right middle lobe pneumonia, however difficult to assess. Patient is afebrile with leukocytosis possibly secondary to stress reaction from his CHF. Blood cultures x2 collected. Aggressive nebulizer therapy, which was also given in the emergency room. IV Solu-Medrol therapy with caution secondary to his diabetes (3) D-dimer, elevated SNOMED Code(s): 289465958 ICD Code: R79.1 - ABNORMAL COAGULATION PROFILE Status: Acute Priority: High Onset Date: 06/29/16 Problem Details: Chronic D-dimer elevation with negative chest and venous Doppler studies in June as above. D-dimer elevation actually improved from last hospitalization. (4) Diabetes mellitus SNOMED Code(s): 83635121 ICD Code: E11.9 - TYPE 2 DIABETES MELLITUS WITHOUT COMPLICATIONS Status: Acute Priority: Medium Problem Details: Glycosylated hemoglobin 10.9 (5) HTN, Benign hypertension SNOMED Code(s): 94264584 ICD Code: I10 - ESSENTIAL (PRIMARY) HYPERTENSION Status: Acute Priority: High Problem Details: Blood pressures under good control in the emergency room (6) Heart disease SNOMED Code(s): 10968435 ICD Code: I51.9 - HEART DISEASE, UNSPECIFIED Status: Acute Priority: High Problem Details: Normal troponin. CK-MB and index remain elevated. (7) Lactic acidosis SNOMED Code(s): 19242515 ICD Code: E87.2 - ACIDOSIS Status: Acute Priority: High Onset Date: Problem Details: No evidence of sepsis clinically. Lactic acid increased to 4.3 today. Unable to get ABG due to lab equipment issues. (8) Osteoarthritis SNOMED Code(s): 289752380 ICD Code: M19.90 - UNSPECIFIED OSTEOARTHRITIS, UNSPECIFIED SITE Status: Acute Priority: Medium Problem Details: Gen. arthralgias recently. Note high-dose oral steroid therapy (9) Peptic reflux disease SNOMED Code(s): 55713392 ICD Code: K21.9 - GASTRO-ESOPHAGEAL REFLUX DISEASE WITHOUT ESOPHAGITIS Status: Acute Priority: Medium Problem Details: IV Protonix given as GI prophylaxis in the emergency room no evidence of acute GI bleed with Lovenox to be initiated with caution (10) Hypoalbuminemia SNOMED Code(s): 624656085 ICD Code: E88.09 - OTH DISORDERS OF PLASMA-PROTEIN METABOLISM, NEC Status: Chronic Priority: Medium Problem Details: High-protein Glucerna supplements with caution secondary to his renal function (11) Anemia SNOMED Code(s): 244530275 ICD Code: D64.9 - ANEMIA, UNSPECIFIED Status: Chronic Priority: Medium Problem Details: Stable anemia from hospitalization in June. Qualifiers: Anemia type: other cause Other causes of anemia: chronic disease, kidney Qualified Code(s): N18.9 - Chronic kidney disease, unspecified; D63.1 - Anemia in chronic kidney disease (12) Renal insufficiency SNOMED Code(s): 169031927 ICD Code: N28.9 - DISORDER OF KIDNEY AND URETER, UNSPECIFIED Status: Chronic Priority: Medium Problem Details: IV Lasix therapy as above. Continue to observe closely - Patient Summary/Data Complications: None Consults: Consultations 10/20/16 09:56 OT Evaluation and Treatment [CONS] Routine PT Evaluation and Treatment [CONS] Routine Hospital Course: Patient treated with nebs, IV nitro drip, solumedrol,lasix, Doxy, Rocephin. Plavix and Lovenox. WBC improved. Lactic acid initially improved but was then more elevated today. Patient complaining of feeling more SOB today. Pain-free however. O2 sats stable on O2 via NC. Vital signs stable. Given worsening SOB, persistently elevated CK-MB, and increased lactic acid re-approached patient about possible transfer to [place]. Both patient and had wanted to stay in [place] when initially evaluated in ER. Today they were ok with transfer to [place] as long as it is to [facility] and not [place]. Discussed patient with from [facility]. He accepted patient in transfer. Requested we d/c nitro drip prior to transfer. - Discharge Plan Home Medications: Home Meds Albuterol/Ipratropium [DuoNeb 3.0-0.5 MG/3 ML] 3 ml INH DAILY@1200 05/04/14 [ History] Allopurinol [Zyloprim] 300 mg PO DAILY 05/04/14 [History] Arformoterol [Brovana] 2 ml INH BID 05/04/14 [History] Aspirin [Jaswinder Chewable Aspirin] 81 mg PO DAILY 05/04/14 [History] Bisoprolol Fumarate [Zebeta] 3 tab PO DAILY 05/04/14 [History] Budesonide [Pulmicort] 2 ml INH BID 05/04/14 [History] Calcium Carbonate [Tums Extra Strength] 750 mg PO ASDIRECTED PRN 05/04/14 [ History] Cholecalciferol (Vitamin D3) [Vitamin D] 400 unit PO BID 05/04/14 [History] Furosemide [Furosemide] 40 mg PO DAILY 05/04/14 [History] Gabapentin [Neurontin] 300 mg PO TID 05/04/14 [History] Multivitamin [Multivitamins] 1 tab PO DAILY 05/04/14 [History] Omeprazole 20 mg PO BID 05/04/14 [History] predniSONE [Prednisone] 2 tab PO DAILY 05/04/14 [History] Lancets 1 strip .XX ASDIRECTED 10/01/14 [History] Albuterol/Ipratropium [Combivent Respimat] 1 puff INH QID 06/29/16 [History] Carboxymethylcellulose Sodium [Refresh Tears 0.5%] 1 drop EYEBOTH TID 06/29/16 [ History] Furosemide 20 mg PO DAILY@1200 06/29/16 [History] Ibuprofen 200 mg PO Q6HR PRN 06/29/16 [History] Insulin Detemir [Levemir Flextouch] 17 units SUBCUT QAM 06/29/16 [History] SitaGLIPtin [Januvia] 100 mg PO DAILY 06/29/16 [History] hydrOXYzine Pamoate [Hydroxyzine Pamoate] 25 mg PO TID PRN 06/29/16 [History] Albuterol Sulfate 2.5 mg NEB Q4H PRN 10/19/16 [History] Doxycycline [Vibramycin] 100 mg PO BID 10/19/16 [History] Hydrocortisone Acetate [Anusol-Hc] 25 mg RECTAL BID 10/19/16 [History] Forms: ED Department Discharge Referrals: Tr Newman PA [Primary Care Provider] - - Discharge Summary/Plan Comment DC Time >30 min.: No - Patient Data Vitals - Most Recent: Last Vital Signs Temp 36.1 C 10/20/16 14:00 Pulse 89 10/20/16 15:12 Resp 22 H 10/20/16 15:12 BP 139/76 10/20/16 15:12 Pulse Ox 96 10/20/16 15:12 Weight - Most Recent: 128.168 kg I&O - Last 24 hours: Intake & Output 10/20/16 10/20/16 10/20/16 06:59 14:59 22:59 Intake Total 295 29 Output Total 1600 200 Balance -1305 -200 29 Lab Results - Last 24 hrs: Laboratory Results - last 24 hr 10/19/16 10/19/16 10/19/16 Range/Units 21:40 21:40 21:40 WBC (4.0-10.2) K/uL RBC (4.33-5.41) M/uL Hgb (13.1-16.8) g/dL Hct (39.0-49.0) % MCV (84.0-98.0) fL MCH (28.2-33.3) pg MCHC (31.7-36.0) g/dL RDW (11.2-14.1) % Plt Count (150-350) K/uL Neut % (Auto) (45.0-80.0) % Lymph % (Auto) (10.0-50.0) % [place] % (Auto) (2.0-14.0) % Eos % (Auto) (0.0-5.0) % Baso % (Auto) (0.0-2.0) % Neut # (Auto) (1.40-7.00) K/uL Lymph # (Auto) (0.50-3.50) K/uL [place] # (Auto) (0.00-1.00) K/uL Eos # (Auto) (0.00-0.50) K/uL Baso # (Auto) (0.00-0.20) K/uL D-Dimer, Quantitative (0-400) ng/mL Sodium (136-145) mmol/L Potassium (3.5-5.1) mmol/L Chloride (98-107) mmol/L Carbon Dioxide (21.0-32.0) mmol/L BUN (7-18) mg/dL Creatinine (0.51-1.17) mg/dL Est Cr Clr Drug Dosing mL/min Estimated GFR (MDRD) mL/min Glucose (74-106) mg/dL POC Glucose (65-110) mg/dl Hemoglobin A1c (4.3-5.7) % Lactic Acid 3.3 H (0.4-2.0) mmol/L Calcium (8.5-10.1) mg/dL Total Bilirubin (0.2-1.0) mg/dL AST (15-37) U/L ALT (12-78) U/L Alkaline Phosphatase (46-116) IU/L Creatine Kinase 156 (26-308) U/L Creatine Kinase Index 4.6 H* (0.0-2.5) % CK-MB (CK-2) 7.10 H* (0.00-3.60) ng/mL Troponin I 0.010 (0.000-0.056) ng/mL Htm-F-Dcuvjyngpdu Pept (0-125) pg/mL Total Protein (6.4-8.2) g/dL Albumin (3.4-5.0) g/dL Triglycerides (30-150) mg/dL Cholesterol (100-200) mg/dL LDL Cholesterol, Calc (0-100) mg/dL HDL Cholesterol (40-60) mg/dL 10/19/16 10/20/16 10/20/16 Range/Units 22:02 00:01 06:40 WBC 5.7 (4.0-10.2) K/uL RBC 3.43 L (4.33-5.41) M/uL Hgb 9.8 L (13.1-16.8) g/dL Hct 32.3 L (39.0-49.0) % MCV 94.2 (84.0-98.0) fL MCH 28.6 (28.2-33.3) pg MCHC 30.3 L (31.7-36.0) g/dL RDW 16.8 H (11.2-14.1) % Plt Count 218 (150-350) K/uL Neut % (Auto) 78.7 (45.0-80.0) % Lymph % (Auto) 14.8 (10.0-50.0) % [place] % (Auto) 6.3 (2.0-14.0) % Eos % (Auto) 0.0 (0.0-5.0) % Baso % (Auto) 0.2 (0.0-2.0) % Neut # (Auto) 4.52 (1.40-7.00) K/uL Lymph # (Auto) 0.85 (0.50-3.50) K/uL [place] # (Auto) 0.36 (0.00-1.00) K/uL Eos # (Auto) 0.00 (0.00-0.50) K/uL Baso # (Auto) 0.01 (0.00-0.20) K/uL D-Dimer, Quantitative (0-400) ng/mL Sodium (136-145) mmol/L Potassium (3.5-5.1) mmol/L Chloride (98-107) mmol/L Carbon Dioxide (21.0-32.0) mmol/L BUN (7-18) mg/dL Creatinine (0.51-1.17) mg/dL Est Cr Clr Drug Dosing mL/min Estimated GFR (MDRD) mL/min Glucose (74-106) mg/dL POC Glucose 347 H* 311 H* (65-110) mg/dl Hemoglobin A1c (4.3-5.7) % Lactic Acid (0.4-2.0) mmol/L Calcium (8.5-10.1) mg/dL Total Bilirubin (0.2-1.0) mg/dL AST (15-37) U/L ALT (12-78) U/L Alkaline Phosphatase (46-116) IU/L Creatine Kinase (26-308) U/L Creatine Kinase Index (0.0-2.5) % CK-MB (CK-2) (0.00-3.60) ng/mL Troponin I (0.000-0.056) ng/mL Ofv-T-Sncuftecegm Pept (0-125) pg/mL Total Protein (6.4-8.2) g/dL Albumin (3.4-5.0) g/dL Triglycerides (30-150) mg/dL Cholesterol (100-200) mg/dL LDL Cholesterol, Calc (0-100) mg/dL HDL Cholesterol (40-60) mg/dL 10/20/16 10/20/16 10/20/16 Range/Units 06:40 06:40 06:40 WBC (4.0-10.2) K/uL RBC (4.33-5.41) M/uL Hgb (13.1-16.8) g/dL Hct (39.0-49.0) % MCV (84.0-98.0) fL MCH (28.2-33.3) pg MCHC (31.7-36.0) g/dL RDW (11.2-14.1) % Plt Count (150-350) K/uL Neut % (Auto) (45.0-80.0) % Lymph % (Auto) (10.0-50.0) % [place] % (Auto) (2.0-14.0) % Eos % (Auto) (0.0-5.0) % Baso % (Auto) (0.0-2.0) % Neut # (Auto) (1.40-7.00) K/uL Lymph # (Auto) (0.50-3.50) K/uL [place] # (Auto) (0.00-1.00) K/uL Eos # (Auto) (0.00-0.50) K/uL Baso # (Auto) (0.00-0.20) K/uL D-Dimer, Quantitative 1050 H (0-400) ng/mL Sodium 139 (136-145) mmol/L Potassium 4.1 (3.5-5.1) mmol/L Chloride 98 (98-107) mmol/L Carbon Dioxide 26.8 (21.0-32.0) mmol/L BUN 42 H (7-18) mg/dL Creatinine 1.49 H (0.51-1.17) mg/dL Est Cr Clr Drug Dosing 42.19 mL/min Estimated GFR (MDRD) 46 mL/min Glucose 270 H* (74-106) mg/dL POC Glucose (65-110) mg/dl Hemoglobin A1c 10.9 H (4.3-5.7) % Lactic Acid (0.4-2.0) mmol/L Calcium 8.5 (8.5-10.1) mg/dL Total Bilirubin 0.3 (0.2-1.0) mg/dL AST 25 (15-37) U/L ALT 39 (12-78) U/L Alkaline Phosphatase 75 (46-116) IU/L Creatine Kinase 145 (26-308) U/L Creatine Kinase Index 4.5 H* (0.0-2.5) % CK-MB (CK-2) 6.50 H* (0.00-3.60) ng/mL Troponin I 0.006 (0.000-0.056) ng/mL Srb-P-Fblrzwscwbc Pept 622 H (0-125) pg/mL Total Protein 7.3 (6.4-8.2) g/dL Albumin 3.1 L (3.4-5.0) g/dL Triglycerides 182 H (30-150) mg/dL Cholesterol 229 H (100-200) mg/dL LDL Cholesterol, Calc 111 H (0-100) mg/dL HDL Cholesterol 82 H (40-60) mg/dL 10/20/16 Range/Units 06:40 WBC (4.0-10.2) K/uL RBC (4.33-5.41) M/uL Hgb (13.1-16.8) g/dL Hct (39.0-49.0) % MCV (84.0-98.0) fL MCH (28.2-33.3) pg MCHC (31.7-36.0) g/dL RDW (11.2-14.1) % Plt Count (150-350) K/uL Neut % (Auto) (45.0-80.0) % Lymph % (Auto) (10.0-50.0) % [place] % (Auto) (2.0-14.0) % Eos % (Auto) (0.0-5.0) % Baso % (Auto) (0.0-2.0) % Neut # (Auto) (1.40-7.00) K/uL Lymph # (Auto) (0.50-3.50) K/uL [place] # (Auto) (0.00-1.00) K/uL Eos # (Auto) (0.00-0.50) K/uL Baso # (Auto) (0.00-0.20) K/uL D-Dimer, Quantitative (0-400) ng/mL Sodium (136-145) mmol/L Potassium (3.5-5.1) mmol/L Chloride (98-107) mmol/L Carbon Dioxide (21.0-32.0) mmol/L BUN (7-18) mg/dL Creatinine (0.51-1.17) mg/dL Est Cr Clr Drug Dosing mL/min Estimated GFR (MDRD) mL/min Glucose (74-106) mg/dL POC Glucose (65-110) mg/dl Hemoglobin A1c (4.3-5.7) % Lactic Acid 4.3 H (0.4-2.0) mmol/L Calcium (8.5-10.1) mg/dL Total Bilirubin (0.2-1.0) mg/dL AST (15-37) U/L ALT (12-78) U/L Alkaline Phosphatase (46-116) IU/L Creatine Kinase (26-308) U/L Creatine Kinase Index (0.0-2.5) % CK-MB (CK-2) (0.00-3.60) ng/mL Troponin I (0.000-0.056) ng/mL Zna-R-Rejnviuntgc Pept (0-125) pg/mL Total Protein (6.4-8.2) g/dL Albumin (3.4-5.0) g/dL Triglycerides (30-150) mg/dL Cholesterol (100-200) mg/dL LDL Cholesterol, Calc (0-100) mg/dL HDL Cholesterol (40-60) mg/dL EMERY Results - Last 24 hrs: Microbiology 10/19/16 19:30 Stool Occult Blood (EMERY) - Final Stool / Feces NEGATIVE OCCULT BLOOD Med Orders - Current: Current Medications Discontinued Medications Acetaminophen (Tylenol) 650 mg PO Q4H PRN PRN Reason: Pain (Mild 1-3)/fever Albuterol (Proventil Neb Soln) 2.5 mg INH Q2H PRN PRN Reason: SHORTNESS OF BREATH Last Admin: 10/20/16 15:18 Dose: 2.5 mg Albuterol/Ipratropium (Duoneb 3.0-0.5 Mg/3 Ml) 3 ml NEB ONETIME ONE Stop: 10/19/16 11:08 Last Admin: 10/19/16 11:13 Dose: 3 ml Albuterol/Ipratropium (Duoneb 3.0-0.5 Mg/3 Ml) 3 ml NEB Q4HRRT PRN PRN Reason: Dyspnea Last Admin: 10/20/16 10:46 Dose: 3 ml Albuterol/Ipratropium (Duoneb 3.0-0.5 Mg/3 Ml) 3 ml NEB Q6HRRT [facility] Last Admin: 10/20/16 14:18 Dose: 3 ml Allopurinol (Zyloprim) 300 mg PO DAILY [facility] Last Admin: 10/20/16 07:37 Dose: 300 mg Arformoterol Tartrate (Brovana) 15 mcg INH BID [facility] Last Admin: 10/20/16 07:36 Dose: 15 mcg Artificial Tears (Liquitears 1.4% Ophth Soln) 1 ml EYEBOTH TID [facility] Last Admin: 10/20/16 11:18 Dose: 1 drp Aspirin (Aspirin) 324 mg CHEW ONETIME ONE Stop: 10/19/16 12:15 Last Admin: 10/19/16 12:19 Dose: 324 mg Bisoprolol Fumarate (Zebeta) 15 mg PO DAILY [facility] Last Admin: 10/20/16 07:37 Dose: 15 mg Budesonide (Pulmicort) 0.5 mg NEB BIDRT [facility] Last Admin: 10/20/16 07:36 Dose: 0.5 mg Clopidogrel Bisulfate (Plavix) 300 mg PO ONETIME ONE Stop: 10/19/16 12:15 Last Admin: 10/19/16 12:19 Dose: 300 mg Doxycycline Hyclate (Vibramycin) 100 mg PO BID [facility] Last Admin: 10/20/16 07:37 Dose: 100 mg Enoxaparin Sodium (Lovenox) 120 mg SUBCUT Q24H [facility] Enoxaparin Sodium (Lovenox) 120 mg SUBCUT Q24H [facility] Last Admin: 10/19/16 12:57 Dose: 120 mg Enoxaparin Sodium (Lovenox) 120 mg SUBCUT Q24H [facility] Last Admin: 10/20/16 14:18 Dose: 120 mg Famotidine (Pepcid) 40 mg IVPUSH ONETIME ONE Stop: 10/19/16 11:07 Last Admin: 10/19/16 11:30 Dose: 40 mg Famotidine (Pepcid) 20 mg IVPUSH BID [facility] Last Admin: 10/20/16 07:37 Dose: 20 mg Furosemide (Lasix) 60 mg IVPUSH NOW ONE Stop: 10/19/16 11:46 Last Admin: 10/19/16 12:07 Dose: 60 mg Furosemide (Lasix) 40 mg IVPUSH Q8H [facility] Last Admin: 10/20/16 10:12 Dose: 40 mg Gabapentin (Neurontin) 300 mg PO TID [facility] Last Admin: 10/20/16 11:17 Dose: 300 mg Guaifenesin/Dextromethorphan (Mucinex Dm Er 600-30 Mg) 1 tab PO BID [facility] Last Admin: 10/20/16 07:36 Dose: 1 tab Ceftriaxone Sodium 1 gm/ (Sodium Chloride) 100 mls @ 200 mls/hr IV Q12H [facility] Last Admin: 10/20/16 03:30 Dose: 200 mls/hr Nitroglycerin/Dextrose (Nitroglycerin 25 Mg/D5w 250 Ml) 25 mg in 250 mls @ 3 mls/hr IV TITRATE [facility] PRN Reason: 5 MCG/MIN Last Admin: 10/19/16 23:56 Dose: 5 mcg/min, 3 mls/hr Sodium Chloride (Normal Saline) 1,000 mls @ 30 mls/hr IV ASDIRECTED [facility] Last Admin: 10/19/16 23:56 Dose: 30 mls/hr Insulin Aspart (Novolog) 0 unit SUBCUT ACBED [facility] PRN Reason: Protocol Stop: 10/19/16 22:00 Last Admin: 10/19/16 16:49 Dose: 10 unit Insulin Aspart (Novolog) 0 unit SUBCUT Q6H [facility] PRN Reason: Protocol Last Admin: 10/19/16 22:05 Dose: 10 units Insulin Aspart (Novolog) 0 unit SUBCUT Q6H [facility] PRN Reason: Protocol Last Admin: 10/20/16 03:42 Dose: 8 units Insulin Aspart (Novolog) 0 unit SUBCUT QIDACANDBED [facility] PRN Reason: Protocol Last Admin: 10/20/16 11:17 Dose: 12 unit Lisinopril (Prinivil) 10 mg PO QPM [facility] Last Admin: 10/19/16 17:37 Dose: 10 mg Methylprednisolone Sodium Succinate (Solu-Medrol) 125 mg IVPUSH Q12H [facility] Last Admin: 10/20/16 03:29 Dose: 125 mg Morphine Sulfate (Morphine) 2 mg .XX ONETIME ONE Stop: 10/19/16 11:38 Last Admin: 10/19/16 11:43 Dose: 2 mg Morphine Sulfate (Morphine) 2 mg .XX Q2H PRN PRN Reason: Dyspnea Last Admin: 10/19/16 13:42 Dose: 2 mg Potassium Chloride (Klor-Con M20) 20 meq PO TID [facility] Last Admin: 10/20/16 11:17 Dose: 20 meq Sodium Chloride (Saline Flush) 10 ml FLUSH ASDIRECTED PRN PRN Reason: Keep Vein Open Last Admin: 10/20/16 10:12 Dose: 10 ml Sodium Chloride (Sodium Chloride 0.9%) 3 ml INH ONETIME ONE Stop: 10/19/16 11:38 Last Admin: 10/19/16 11:43 Dose: 3 ml Sodium Chloride (Sodium Chloride 0.9%) 3 ml INH ASDIRECTED PRN PRN Reason: Dyspnea Sodium Chloride (Saline Flush) 10 ml FLUSH Q12H PRN PRN Reason: Keep Vein Open Temazepam (Restoril) 15 mg PO BEDTIME PRN PRN Reason: Insomnia *Q Meaningful Use (DIS) - VTE *Q VTE Criteria *Q: - Stroke *Q Stroke Criteria *Q: - AMI *Q AMI Criteria *Q:
== END 2016-10-20 16:10 | DRG 292 ==
LOC: LL.ED 11:04 → UNDOADMIN 12:20 → LL.MS 12:20 → UNDODISIN 10-20 16:10
PROVIDERS: ADMIT Family Medicine; ATTEND Family Medicine
DX: I11.0 Hypertensive heart disease with heart failure (principal); E87.2 Acidosis; I50.9 Heart failure, unspecified; Z99.81 Dependence on supplemental oxygen; J44.9 Chronic obstructive pulmonary disease, unspecified; R79.1 Abnormal coagulation profile; E11.9 Type 2 diabetes mellitus without complications; I51.9 Heart disease, unspecified; M19.90 Unspecified osteoarthritis, unspecified site; K21.9 Gastro-esophageal reflux disease without esophagitis; E88.09 Other disorders of plasma-protein metabolism, not elsewhere classified; N18.9 Chronic kidney disease, unspecified; D63.1 Anemia in chronic kidney disease; N28.9 Disorder of kidney and ureter, unspecified; Z79.4 Long term (current) use of insulin
CPT/HCPCS: 36415; 71010; 80053; 82550; 82553; 83605; 83735; 83880; 84443; 84484; 84550; 85025; 85379; 85610; 85730; 86318; 87040 ×2; 87804 ×2; 93005; 94640 ×2; 96374; 96375; 99285; A9270 ×2; J1940; J2270; J7050; 80061; 82272; 82803; 82962; 83036; 94664; 96372; 97116-GP; 97161-GP; 97165-GO; J0696; J1650; J1815-GY; J2930; J7030; J7620-GY; S0028

== ENCOUNTER 2016-10-26 11:08 | Inpatient (IN) | payer MEDICARE, BC ==
--- NOTE | 2016-10-26 13:31 | PCM.HP ---
H&P History of Present Illness - General Date of Service: 10/26/16 Source of Information: Patient, Old records History Limitations: Reports: No limitations - Related Data Allergies/Adverse Reactions: Allergies Allergy/AdvReac Type Severity Reaction Status Date / Time celecoxib Allergy Cannot Verified 06/29/16 12:00 Remember diltiazem Allergy Cannot Verified 06/29/16 12:00 Remember metoprolol Allergy Cannot Verified 06/29/16 12:00 Remember Mcthccw-Qrq-Pud Reductase Allergy Muscle Verified 10/19/16 11:35 Inhibitor Aches tiotropium bromide Allergy URINARY Verified 10/19/16 11:39 [From [facility] with RETENTION [employer]] Home Medications: Home Meds Albuterol/Ipratropium [DuoNeb 3.0-0.5 MG/3 ML] 3 ml INH DAILY@1200 05/04/14 [ History] Allopurinol [Zyloprim] 300 mg PO DAILY 05/04/14 [History] Arformoterol [Brovana] 2 ml INH BID 05/04/14 [History] Aspirin [Jaswinder Chewable Aspirin] 81 mg PO DAILY 05/04/14 [History] Bisoprolol Fumarate [Zebeta] 3 tab PO DAILY 05/04/14 [History] Budesonide [Pulmicort] 2 ml INH BID 05/04/14 [History] Calcium Carbonate [Tums Extra Strength] 750 mg PO ASDIRECTED PRN 05/04/14 [ History] Cholecalciferol (Vitamin D3) [Vitamin D] 400 unit PO BID 05/04/14 [History] Furosemide [Furosemide] 40 mg PO DAILY 05/04/14 [History] Gabapentin [Neurontin] 300 mg PO TID 05/04/14 [History] Multivitamin [Multivitamins] 1 tab PO DAILY 05/04/14 [History] Omeprazole 20 mg PO BID 05/04/14 [History] predniSONE [Prednisone] 2 tab PO DAILY 05/04/14 [History] Lancets 1 strip .XX ASDIRECTED 10/01/14 [History] Albuterol/Ipratropium [Combivent Respimat] 1 puff INH QID 06/29/16 [History] Carboxymethylcellulose Sodium [Refresh Tears 0.5%] 1 drop EYEBOTH TID 06/29/16 [ History] Furosemide 20 mg PO DAILY@1200 06/29/16 [History] Ibuprofen 200 mg PO Q6HR PRN 06/29/16 [History] Insulin Detemir [Levemir Flextouch] 17 units SUBCUT QAM 06/29/16 [History] SitaGLIPtin [Januvia] 100 mg PO DAILY 06/29/16 [History] hydrOXYzine Pamoate [Hydroxyzine Pamoate] 25 mg PO TID PRN 06/29/16 [History] Albuterol Sulfate 2.5 mg NEB Q4H PRN 10/19/16 [History] Doxycycline [Vibramycin] 100 mg PO BID 10/19/16 [History] Hydrocortisone Acetate [Anusol-Hc] 25 mg RECTAL BID 10/19/16 [History] Past Medical History HEENT History: Reports: Cataract, Hard of hearing, Impaired vision, Macular degeneration, Other (see below) Other HEENT History: Glasses, macular degeneration and diabetic retinopathy, 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 and chronic left- sided tinnitus secondary to Mnire's disease, patient has not used his hearing aides secondary to ineffectiveness Cardiovascular History: Reports: Aneurysm, Arrhythmia, CAD, Cardiomyopathy, Heart Failure, Heart murmur, High cholesterol, Hypertension, PVD, Other (see below) Other Cardiovascular History: PVCs, bigeminy, complete right bundle branch block , PACs, cardiomegaly with diastolic dysfunction by echocardiogram, recurrent CHF , tricuspid valve insufficiency, infrarenal abdominal aortic aneurysm initially diagnosed in 2006, chronic lymphedema of the lower extremities Respiratory History: Reports: Bronchitis, recurrent, COPD, Pneumonia, recurrent , Pulmonary fibrosis, Sleep apnea, Other (see below) Other Respiratory History: O2 and steroid-dependent COPD with pulmonary fibrosis by chest x-ray, nasal CPAP therapy at 16 cm water pressure with 2 L per minute oxygen bleed Gastrointestinal History: Reports: Chronic constipation, Colon polyp, Diverticulosis, Gastritis, GERD, Helicobacter pylori, PUD, Other (see below) Other Gastrointestinal History: Severe diverticulosis of the descending colon by colonoscopy on 09/25/09, GERD with history of esophagitis and upper GI bleed on 09/20/09, peptic ulcer and duodenitis by EGD with previously treated H. pylori , umbilical hernia, benign hepatic cysts by CT scan on 05/26/98 Genitourinary History: Reports: Acute renal failure, BPH, Chronic renal insuffiency, Diabetic nephropathy, Prostate disorder, Renal disease, Other (see below) Other Genitourinary History: Acute renal failure with secondary hypotension secondary to NSAIDs use on 10/01/14, BPH with history of PSA elevation, end- stage renal disease-stage III, erectile dysfunction Musculoskeletal History: Reports: Arthritis, Back pain, chronic, Fracture, Gout , Neck pain, chronic, Osteoarthritis, Osteoporosis, Other (see below) Other Musculoskeletal History: Spinal stenosis at L4-5 with disc prolapse, positive NENO however no known SLE, proximal left fibular fracture in September 2014 Neurological History: Reports: Neuropathy, diabetic, Neuropathy, peripheral Psychiatric History: Reports: None Endocrine/Metabolic History: Reports: Diabetes, type II, IDDM, Osteoporosis Hematologic History: Reports: None Immunologic History: Reports: None Oncologic (Cancer) History: Reports: Squamous cell carcinoma, Other (see below) Other Oncologic History: 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/04 Dermatologic History: Reports: Venous stasis dermatitis - Infectious Disease History Infectious Disease History: Reports: Chicken pox, Helicobacter pylori, Mumps, Shingles - Past Surgical History Head Surgeries/Procedures: Reports: None HEENT Surgical History: Reports: Cataract surgery, Laser surgery, Oral surgery, Tonsillectomy, Other (see below) Other HEENT Surgeries/Procedures: Right cataract surgery on 05/23/03, left cataract surgery on 06/12/04, tonsillectomy at age 9, left eye YAG treatment, complete teeth extraction Cardiovascular Surgical History: Reports: None Respiratory Surgical History: Reports: None GI Surgical History: Reports: Colonoscopy, EGD, Other (see below) Other GI Surgeries/Procedures: Last Colonoscopy and EGD on 09/25/09, small bowel series on 10/02/09 Male Surgical History: Reports: Prostatectomy, TURP-Transurethral resection of prostate, Other (see below) Other Male Surgeries/Procedures: Suprapubic partial prostatectomy in September 2004 with no evidence of prostate cancer despite previous PSA elevation Endocrine Surgical History: Reports: None Neurological Surgical History: Reports: Lumbar spine, Other (see below) Other Neurological Surgeries/Procedures: Unknown type of back surgeries x2 in the lumbar region Musculoskeletal Surgical History: Reports: None Oncologic Surgical History: Reports: Other (see below) Other Oncologic Surgeries/Procedures: Mohs procedure as above Dermatological Surgical History: Reports: Skin biopsy - Past Imaging History Past Imaging History: Reports: Cardiac echo (Last echocardiogram at [facility] in September 2014 with ejection fraction of 60% and results as above, previous echocardiogram on 12/17/11), Carotid US (09/13/11), CAT scan (Negative CTA of the chest on 07/01/16, CT scan of the abdomen and pelvis with last evaluation in November 2013, CT of the chest on 05/26/98), DEXA scan (01/24/09), Holter monitor (12/18/03), MRI (Lumbar spine on 05/03/06), PFT (Last on 06/30/06) , Sleep study (11/27/11), Stress testing (Dobutamine Cardiolite stress test on 09/02 with evidence of inferior wall ischemia and ejection fraction of 55%), Ultrasound (Bilateral renal ultrasound in September 2014), Venous doppler (Last venous Doppler studies of the lower extremities on 06/29/16 with previous evaluation at [facility] in September 2014), Other (see below) (VQ scan at [facility] in September 1999) Social & Family History - Family History HEENT: Reports: None Cardiac: Reports: CAD, Hypertension, GA, Other (see below) Other Cardiac Family History: Maternal uncle with fatal GA at age 42, another maternal uncle with fatal GA at age 48, mother with hypertension, patient denies history of coronary artery disease in sister despite [facility] records Respiratory: Reports: COPD, Sleep apnea, Other (see below) Other Respiratory Family Hisory: Brother with COPD and sleep apnea with history of tobacco use : Reports: None OBGYN: Reports: None Musculoskeletal: Reports: Arthritis, Osteoarthritis, Other (see below) Other Musculoskeletal Family History: Brother with osteoarthritis Neurological: Reports: Cerebral aneurysms, CVA, Neuropathy, peripheral, Other ( see below) Other Neurological Family History: Sister with fatal cerebral aneurysm at age 42 , maternal uncle with fatal hemorrhagic CVA at age 65 , patient denies CVA in brother despite [facility] records, brother with peripheral neuropathy Psychiatric: Reports: None Endocrine/Metabolic: Reports: None Hematologic: Reports: None Immunologic: Reports: None Oncologic: Reports: Breast, Other (see below) Other Oncologic Family History: Mother with unknown type of fatal cancer at age 65, sister with breast cancer in her 60s - Tobacco Use Smoking Status *Q: Former Smoker Years of Tobacco use: 51 Packs/Tins Daily: 2 Used Tobacco, but Quit: Yes Month Tobacco Last Used: 1-1/2 and 3 packs of cigarettes per day between ages 16 and 67 Second Hand Smoke Exposure: No - Caffeine Use Caffeine Use: Reports: Coffee, Soda. 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) H&P Review of Systems - Review of Systems: Review Of Systems: See Below General: Reports: weakness HEENT: Reports: no symptoms Pulmonary: Reports: Shortness of Breath Cardiovascular: Reports: no symptoms Gastrointestinal: Reports: No symptoms Genitourinary: Reports: no symptoms Musculoskeletal: Reports: no symptoms Skin: Reports: bruising Psychiatric: Reports: no symptoms Neurological: Reports: Difficulty Walking, Weakness Hematologic/Lymphatic: Reports: no symptoms Immunologic: Reports: no symptoms Exam - Exam Exam: See Below - Vital Signs Vital Signs: Last Vital Signs Temp 97.8 F 10/26/16 13:05 Pulse 84 10/26/16 13:05 Resp 18 10/26/16 13:05 BP 143/82 H 10/26/16 13:05 Pulse Ox 100 10/26/16 13:05 Weight: 278 lb 4.8 oz - Exam Quality Assessment: supplemental oxygen General: alert, cooperative, mild distress HEENT: Hearing intact, Nares patent Neck: trachea midline Lungs: Decreased breath sounds, Rhonchi Cardiovascular: irregular rhythm Abdomen: normal bowel sounds, soft (Male) Exam: Deferred Rectal (Males) Exam: Deferred Back Exam: normal inspection Extremities: edema Skin: warm, dry, intact, ecchymosis Neurological: normal speech, abnormal gait, other (generalized weakness) Neuro Extensive - Mental Status: alert, normal mood/affect, normal cognition Neuro Extensive - Motor, Sensory, Reflexes: abnormal gait Psychiatric: alert, normal affect, normal mood *Q Meaningful Use (ADM) - VTE *Q VTE Criteria *Q: VTE Mechanical Contraindications *Q: At Risk for Falls VTE Pharmacological Contraindications *Q: Not Candidate LT Anticoag VTE Anticoagulation Contraindications: Med/tx not indicated/need - Stroke *Q Stroke Criteria *Q: - AMI *Q AMI Criteria *Q: - Problem List (1) Acidosis SNOMED Code(s): 06956239 ICD Code: E87.2 - ACIDOSIS Status: Acute Priority: High Current Visit: No (2) Anemia due to medication SNOMED Code(s): 270000922 ICD Code: D64.89 - OTHER SPECIFIED ANEMIAS Status: Acute Priority: Medium Current Visit: No (3) CHF, Congestive heart failure SNOMED Code(s): 89291213 ICD Code: I50.9 - HEART FAILURE, UNSPECIFIED Status: Acute Priority: High Current Visit: No Problem Details: History of recurrent CHF with recent hospitalization as above. High-dose IV Lasix given in the emergency room with continuation of aggressive IV Lasix therapy with caution secondary to his history of renal insufficiency. Moderate CHF by chest x-ray with elevated BNP and some change in his troponin I. Additional evidence of elevated cardiac index with ASA and Plavix given after results were obtained. Initiated subcutaneous Lovenox therapy in the emergency room. Otherwise initiated standard rule out GA orders. Various therapeutic options were given to the patient and his , who requested further care in this facility for now. No chest pain or anginal type symptoms. (4) COPD, Moderate chronic obstructive pulmonary disease SNOMED Code(s): 757976704 ICD Code: J44.9 - CHRONIC OBSTRUCTIVE PULMONARY DISEASE, UNSPECIFIED Status : Acute Priority: Medium Current Visit: No Problem Details: Possible beginning right middle lobe pneumonia, however difficult to assess. Patient is afebrile with leukocytosis possibly secondary to stress reaction from his CHF. Blood cultures x2 collected. Aggressive nebulizer therapy, which was also given in the emergency room. IV Solu-Medrol therapy with caution secondary to his diabetes (5) D-dimer, elevated SNOMED Code(s): 581369636 ICD Code: R79.1 - ABNORMAL COAGULATION PROFILE Status: Acute Priority: High Current Visit: No Onset Date: 06/29/16 Problem Details: Chronic D- dimer elevation with negative chest and venous Doppler studies in June as above. D-dimer elevation actually improved from last hospitalization. (6) Diabetes mellitus SNOMED Code(s): 19820366 ICD Code: E11.9 - TYPE 2 DIABETES MELLITUS WITHOUT COMPLICATIONS Status: Acute Priority: Medium Current Visit: No Problem Details: Glycosylated hemoglobin 10.9 (7) HTN, Benign hypertension SNOMED Code(s): 86799547 ICD Code: I10 - ESSENTIAL (PRIMARY) HYPERTENSION Status: Acute Priority: High Current Visit: No Problem Details: Blood pressures under good control in the emergency room (8) Heart disease SNOMED Code(s): 75839046 ICD Code: I51.9 - HEART DISEASE, UNSPECIFIED Status: Acute Priority: High Current Visit: No Problem Details: Normal troponin. CK-MB and index remain elevated. (9) Hypomagnesemia SNOMED Code(s): 728867145 ICD Code: E83.42 - HYPOMAGNESEMIA Status: Acute Priority: Medium Current Visit: No Onset Date: 06/29/16 Problem Details: Continue Magnesium oxide with caution secondary to his renal function (10) Kidney disease SNOMED Code(s): 61082332 ICD Code: N28.9 - DISORDER OF KIDNEY AND URETER, UNSPECIFIED Status: Acute Priority: High Current Visit: No Problem Details: Note chronic renal disease with last creatinine level unknown at this time. Nephrology consultation as needed with current Lasix, metformin, Monopril, and allopurinol therapy with possible medication adjustments required. (11) Osteoarthritis SNOMED Code(s): 462744194 ICD Code: M19.90 - UNSPECIFIED OSTEOARTHRITIS, UNSPECIFIED SITE Status: Acute Priority: Medium Current Visit: No Problem Details: Gen. arthralgias recently. Note high-dose oral steroid therapy (12) Peptic reflux disease SNOMED Code(s): 38958133 ICD Code: K21.9 - GASTRO-ESOPHAGEAL REFLUX DISEASE WITHOUT ESOPHAGITIS Status: Acute Priority: Medium Current Visit: No Problem Details: IV Protonix given as GI prophylaxis in the emergency room no evidence of acute GI bleed with Lovenox to be initiated with caution (13) Hypoalbuminemia SNOMED Code(s): 347729532 ICD Code: E88.09 - OTH DISORDERS OF PLASMA-PROTEIN METABOLISM, NEC Status: Chronic Priority: Medium Current Visit: No Problem Details: High-protein Glucerna supplements with caution secondary to his renal function (14) Renal insufficiency SNOMED Code(s): 257662375 ICD Code: N28.9 - DISORDER OF KIDNEY AND URETER, UNSPECIFIED Status: Chronic Priority: Medium Current Visit: No Problem Details: IV Lasix therapy as above. Continue to observe closely Problem List Initiated/Reviewed/Updated: Yes Assessment/Plan Comment:: 10/26/16 Dusty Seaman MD Recent hospitalization. Now needs swing bed status for PT-OT for strengthening.
[2016-10-26] MEDS ORDERED: Calcium Carbonate 750 MG Tab.Chew PO PRN (13:52)
[2016-10-26] MEDS ORDERED: Albuterol 0.083% 2.5 MG/3 ML Neb Soln NEB PRN (13:52)
[2016-10-26] MEDS: Albuterol/Ipratropium 4 GM Inhalation Spray INH SCH ×2 (17:23→19:59)
[2016-10-26] MEDS: Gabapentin 300 MG Cap PO SCH (17:24)
[2016-10-26] MEDS: Cholecalciferol (Vitamin D3) 400 Unit Tab PO SCH (17:24)
[2016-10-26] MEDS: Omeprazole 20 MG Cap.CR PO SCH (17:24)
[2016-10-26] MEDS: Polyvinyl Alcohol 1.4% Ophth Soln 15 ML Bottle EYEBOTH SCH (17:29)
[2016-10-26] MEDS ORDERED: Hydrocortisone Acetate 25 MG Supp RECTAL SCH (18:00)
[2016-10-26] MEDS: Arformoterol 15 MCG/2 ML Neb Soln INH SCH (20:00)
[2016-10-26] MEDS: Budesonide 0.5 MG/2 ML Neb Susp INH SCH (20:03)
[2016-10-27] MEDS: Arformoterol 15 MCG/2 ML Neb Soln INH SCH ×2 (07:35→19:25)
[2016-10-27] MEDS: Omeprazole 20 MG Cap.CR PO SCH ×2 (07:36→17:03)
[2016-10-27] MEDS: Aspirin 81 MG Tab.Chew PO SCH (07:37)
[2016-10-27] MEDS: Budesonide 0.5 MG/2 ML Neb Susp INH SCH ×2 (07:38→19:26)
[2016-10-27] MEDS: Cholecalciferol (Vitamin D3) 400 Unit Tab PO SCH ×2 (07:39→17:04)
[2016-10-27] MEDS: Multivitamin Tab PO SCH (07:39)
[2016-10-27] MEDS: Bisoprolol 5 MG Tab PO SCH (07:40)
[2016-10-27] MEDS: Albuterol/Ipratropium 4 GM Inhalation Spray INH SCH ×4 (07:42→19:29)
[2016-10-27] MEDS: Furosemide 40 MG Tab PO SCH (07:43)
[2016-10-27] MEDS: Polyvinyl Alcohol 1.4% Ophth Soln 15 ML Bottle EYEBOTH SCH ×3 (07:44→17:03)
[2016-10-27] MEDS: Isosorbide Mononitrate 60 MG Tab.ER PO SCH (07:44)
[2016-10-27] MEDS: Gabapentin 300 MG Cap PO SCH ×3 (07:46→17:04)
[2016-10-27] MEDS ORDERED: Insulin Detemir 100 Units/ML 3 ML Pen SUBCUT SCH (08:00)
[2016-10-27] MEDS: predniSONE 20 MG Tab PO SCH (08:05)
[2016-10-27] MEDS: Furosemide 20 MG Tab PO SCH (12:21)
[2016-10-27] MEDS: Albuterol/Ipratropium 3.0-0.5 MG/3 ML Neb Soln INH PRN (15:14)
[2016-10-28] MEDS: Omeprazole 20 MG Cap.CR PO SCH ×2 (07:43→17:34)
[2016-10-28] MEDS: Arformoterol 15 MCG/2 ML Neb Soln INH SCH ×2 (07:43→19:11)
[2016-10-28] MEDS: Isosorbide Mononitrate 60 MG Tab.ER PO SCH (07:45)
[2016-10-28] MEDS: Furosemide 40 MG Tab PO SCH (07:45)
[2016-10-28] MEDS: Polyvinyl Alcohol 1.4% Ophth Soln 15 ML Bottle EYEBOTH SCH ×3 (07:46→17:34)
[2016-10-28] MEDS: Gabapentin 300 MG Cap PO SCH ×3 (07:46→17:35)
[2016-10-28] MEDS: predniSONE 20 MG Tab PO SCH (07:47)
[2016-10-28] MEDS: Multivitamin Tab PO SCH (07:47)
[2016-10-28] MEDS: Bisoprolol 5 MG Tab PO SCH (07:48)
[2016-10-28] MEDS: Cholecalciferol (Vitamin D3) 400 Unit Tab PO SCH ×2 (07:48→17:35)
[2016-10-28] MEDS: Insulin Detemir 100 Units/ML 3 ML Pen SUBCUT SCH (07:53)
[2016-10-28] MEDS: Budesonide 0.5 MG/2 ML Neb Susp INH SCH ×2 (07:54→19:12)
[2016-10-28] MEDS: Aspirin 81 MG Tab.Chew PO SCH (07:55)
[2016-10-28] MEDS: Albuterol/Ipratropium 4 GM Inhalation Spray INH SCH ×4 (07:58→19:12)
[2016-10-28] MEDS: Furosemide 20 MG Tab PO SCH (11:18)
[2016-10-28] MEDS: Albuterol/Ipratropium 3.0-0.5 MG/3 ML Neb Soln INH PRN (15:51)
[2016-10-29] MEDS: Budesonide 0.5 MG/2 ML Neb Susp INH SCH ×2 (07:23→19:35)
[2016-10-29] MEDS: Omeprazole 20 MG Cap.CR PO SCH ×2 (07:24→17:20)
[2016-10-29] MEDS: Aspirin 81 MG Tab.Chew PO SCH (07:25)
[2016-10-29] MEDS: Isosorbide Mononitrate 60 MG Tab.ER PO SCH (07:25)
[2016-10-29] MEDS: Furosemide 40 MG Tab PO SCH (07:26)
[2016-10-29] MEDS: Polyvinyl Alcohol 1.4% Ophth Soln 15 ML Bottle EYEBOTH SCH ×3 (07:26→17:21)
[2016-10-29] MEDS: Multivitamin Tab PO SCH (07:27)
[2016-10-29] MEDS: predniSONE 20 MG Tab PO SCH (07:27)
[2016-10-29] MEDS: Gabapentin 300 MG Cap PO SCH ×3 (07:27→17:22)
[2016-10-29] MEDS: Cholecalciferol (Vitamin D3) 400 Unit Tab PO SCH ×2 (07:28→17:22)
[2016-10-29] MEDS: Bisoprolol 5 MG Tab PO SCH (07:28)
[2016-10-29] MEDS: Insulin Detemir 100 Units/ML 3 ML Pen SUBCUT SCH (07:29)
[2016-10-29] MEDS: Arformoterol 15 MCG/2 ML Neb Soln INH SCH ×2 (07:34→19:23)
[2016-10-29] MEDS: Albuterol/Ipratropium 4 GM Inhalation Spray INH SCH ×4 (07:45→19:25)
[2016-10-29] MEDS: Furosemide 20 MG Tab PO SCH (11:58)
[2016-10-29] MEDS: Albuterol/Ipratropium 3.0-0.5 MG/3 ML Neb Soln INH PRN (13:29)
[2016-10-30] MEDS: Aspirin 81 MG Tab.Chew PO SCH (07:15)
[2016-10-30] MEDS: Omeprazole 20 MG Cap.CR PO SCH ×2 (07:15→17:30)
[2016-10-30] MEDS: Furosemide 40 MG Tab PO SCH (07:16)
[2016-10-30] MEDS: Isosorbide Mononitrate 60 MG Tab.ER PO SCH (07:16)
[2016-10-30] MEDS: Albuterol/Ipratropium 4 GM Inhalation Spray INH SCH ×4 (07:16→19:08)
[2016-10-30] MEDS: Insulin Detemir 100 Units/ML 3 ML Pen SUBCUT SCH (07:17)
[2016-10-30] MEDS: Gabapentin 300 MG Cap PO SCH ×3 (07:18→17:30)
[2016-10-30] MEDS: Polyvinyl Alcohol 1.4% Ophth Soln 15 ML Bottle EYEBOTH SCH ×3 (07:18→17:30)
[2016-10-30] MEDS: predniSONE 20 MG Tab PO SCH (07:20)
[2016-10-30] MEDS: Multivitamin Tab PO SCH (07:20)
[2016-10-30] MEDS: Budesonide 0.5 MG/2 ML Neb Susp INH SCH ×2 (07:20→19:09)
[2016-10-30] MEDS: Cholecalciferol (Vitamin D3) 400 Unit Tab PO SCH ×2 (07:20→17:30)
[2016-10-30] MEDS: Bisoprolol 5 MG Tab PO SCH (07:21)
[2016-10-30] MEDS: Arformoterol 15 MCG/2 ML Neb Soln INH SCH ×2 (07:40→19:12)
--- NOTE | 2016-10-30 09:34 | PCM.SN ---
- Free Text/Narrative Note: 10/30/16 Dusty Seaman MD He had BRB per rectum this AM while on toilet. He says he has had history or this occurring before. History of anemia. Will recheck hemoglobin and do hemocult stools. BP and pulse stable.
[2016-10-30] MEDS: Furosemide 20 MG Tab PO SCH (11:35)
[2016-10-30] MEDS: Albuterol/Ipratropium 3.0-0.5 MG/3 ML Neb Soln INH PRN (17:34)
[2016-10-31] MEDS: Arformoterol 15 MCG/2 ML Neb Soln INH SCH ×2 (07:21→19:49)
[2016-10-31] MEDS: Albuterol/Ipratropium 4 GM Inhalation Spray INH SCH ×4 (07:21→19:47)
[2016-10-31] MEDS: Omeprazole 20 MG Cap.CR PO SCH ×2 (07:21→16:30)
[2016-10-31] MEDS: Isosorbide Mononitrate 60 MG Tab.ER PO SCH (07:22)
[2016-10-31] MEDS: Furosemide 40 MG Tab PO SCH (07:23)
[2016-10-31] MEDS: Budesonide 0.5 MG/2 ML Neb Susp INH SCH ×2 (07:24→19:48)
[2016-10-31] MEDS: Polyvinyl Alcohol 1.4% Ophth Soln 15 ML Bottle EYEBOTH SCH ×3 (07:26→17:05)
[2016-10-31] MEDS: Insulin Detemir 100 Units/ML 3 ML Pen SUBCUT SCH (07:27)
[2016-10-31] MEDS: Gabapentin 300 MG Cap PO SCH ×3 (07:29→17:06)
[2016-10-31] MEDS: predniSONE 20 MG Tab PO SCH (07:29)
[2016-10-31] MEDS: Multivitamin Tab PO SCH (07:30)
[2016-10-31] MEDS: Cholecalciferol (Vitamin D3) 400 Unit Tab PO SCH ×2 (07:31→17:06)
[2016-10-31] MEDS: Bisoprolol 5 MG Tab PO SCH (07:32)
[2016-10-31] MEDS: Furosemide 20 MG Tab PO SCH (12:05)
[2016-11-01] MEDS: Omeprazole 20 MG Cap.CR PO SCH ×2 (07:39→17:27)
[2016-11-01] MEDS: Arformoterol 15 MCG/2 ML Neb Soln INH SCH ×2 (07:40→19:28)
[2016-11-01] MEDS: Albuterol/Ipratropium 4 GM Inhalation Spray INH SCH ×4 (07:41→19:29)
[2016-11-01] MEDS: Furosemide 40 MG Tab PO SCH (07:42)
[2016-11-01] MEDS: Polyvinyl Alcohol 1.4% Ophth Soln 15 ML Bottle EYEBOTH SCH ×3 (07:42→17:27)
[2016-11-01] MEDS: Isosorbide Mononitrate 60 MG Tab.ER PO SCH (07:42)
[2016-11-01] MEDS: Insulin Detemir 100 Units/ML 3 ML Pen SUBCUT SCH (07:45)
[2016-11-01] MEDS: Gabapentin 300 MG Cap PO SCH ×3 (07:46→17:27)
[2016-11-01] MEDS: Multivitamin Tab PO SCH (07:47)
[2016-11-01] MEDS: Budesonide 0.5 MG/2 ML Neb Susp INH SCH ×2 (07:47→19:28)
[2016-11-01] MEDS: Cholecalciferol (Vitamin D3) 400 Unit Tab PO SCH ×2 (07:47→17:28)
[2016-11-01] MEDS: predniSONE 20 MG Tab PO SCH (07:47)
[2016-11-01] MEDS: Bisoprolol 5 MG Tab PO SCH (07:48)
[2016-11-01] MEDS: Furosemide 20 MG Tab PO SCH (11:40)
[2016-11-01] MEDS: Albuterol/Ipratropium 3.0-0.5 MG/3 ML Neb Soln INH PRN (15:52)
[2016-11-02] MEDS: Budesonide 0.5 MG/2 ML Neb Susp INH SCH ×2 (07:40→19:08)
[2016-11-02] MEDS: Insulin Detemir 100 Units/ML 3 ML Pen SUBCUT SCH (07:47)
[2016-11-02] MEDS: Omeprazole 20 MG Cap.CR PO SCH ×2 (07:54→17:21)
[2016-11-02] MEDS: Albuterol/Ipratropium 4 GM Inhalation Spray INH SCH ×4 (07:54→19:08)
[2016-11-02] MEDS: Arformoterol 15 MCG/2 ML Neb Soln INH SCH ×2 (07:55→19:12)
[2016-11-02] MEDS: Isosorbide Mononitrate 60 MG Tab.ER PO SCH (07:55)
[2016-11-02] MEDS: predniSONE 20 MG Tab PO SCH (07:56)
[2016-11-02] MEDS: Gabapentin 300 MG Cap PO SCH ×3 (07:56→17:21)
[2016-11-02] MEDS: Polyvinyl Alcohol 1.4% Ophth Soln 15 ML Bottle EYEBOTH SCH ×3 (07:56→17:21)
[2016-11-02] MEDS: Furosemide 40 MG Tab PO SCH (07:56)
[2016-11-02] MEDS: Bisoprolol 5 MG Tab PO SCH (07:57)
[2016-11-02] MEDS: Cholecalciferol (Vitamin D3) 400 Unit Tab PO SCH ×2 (07:57→17:21)
[2016-11-02] MEDS: Multivitamin Tab PO SCH (07:57)
[2016-11-02] MEDS: Furosemide 20 MG Tab PO SCH (11:16)
[2016-11-02] MEDS: Albuterol/Ipratropium 3.0-0.5 MG/3 ML Neb Soln INH PRN (15:12)
[2016-11-03] MEDS: Albuterol/Ipratropium 4 GM Inhalation Spray INH SCH ×4 (07:05→19:14)
[2016-11-03] MEDS: Polyvinyl Alcohol 1.4% Ophth Soln 15 ML Bottle EYEBOTH SCH ×3 (07:06→17:28)
[2016-11-03] MEDS: Budesonide 0.5 MG/2 ML Neb Susp INH SCH ×2 (07:06→19:16)
[2016-11-03] MEDS: Omeprazole 20 MG Cap.CR PO SCH ×2 (07:12→17:27)
[2016-11-03] MEDS: Isosorbide Mononitrate 60 MG Tab.ER PO SCH (07:13)
[2016-11-03] MEDS: Arformoterol 15 MCG/2 ML Neb Soln INH SCH ×2 (07:13→19:21)
[2016-11-03] MEDS: Furosemide 40 MG Tab PO SCH (07:13)
[2016-11-03] MEDS: Insulin Detemir 100 Units/ML 3 ML Pen SUBCUT SCH (07:14)
[2016-11-03] MEDS: Gabapentin 300 MG Cap PO SCH ×3 (07:15→17:28)
[2016-11-03] MEDS: Cholecalciferol (Vitamin D3) 400 Unit Tab PO SCH ×2 (07:16→17:28)
[2016-11-03] MEDS: predniSONE 20 MG Tab PO SCH (07:16)
[2016-11-03] MEDS: Multivitamin Tab PO SCH (07:16)
[2016-11-03] MEDS: Bisoprolol 5 MG Tab PO SCH (07:17)
[2016-11-03] MEDS: Furosemide 20 MG Tab PO SCH (11:24)
[2016-11-03] MEDS: Albuterol/Ipratropium 3.0-0.5 MG/3 ML Neb Soln INH PRN (12:45)
[2016-11-04] MEDS: Isosorbide Mononitrate 60 MG Tab.ER PO SCH (07:32)
[2016-11-04] MEDS: Omeprazole 20 MG Cap.CR PO SCH ×2 (07:32→17:38)
[2016-11-04] MEDS: Albuterol/Ipratropium 4 GM Inhalation Spray INH SCH ×4 (07:32→19:13)
[2016-11-04] MEDS: Furosemide 40 MG Tab PO SCH (07:33)
[2016-11-04] MEDS: Insulin Detemir 100 Units/ML 3 ML Pen SUBCUT SCH (07:33)
[2016-11-04] MEDS: Polyvinyl Alcohol 1.4% Ophth Soln 15 ML Bottle EYEBOTH SCH ×3 (07:34→17:39)
[2016-11-04] MEDS: Gabapentin 300 MG Cap PO SCH ×3 (07:34→17:39)
[2016-11-04] MEDS: Multivitamin Tab PO SCH (07:35)
[2016-11-04] MEDS: Budesonide 0.5 MG/2 ML Neb Susp INH SCH ×2 (07:35→19:14)
[2016-11-04] MEDS: predniSONE 20 MG Tab PO SCH (07:35)
[2016-11-04] MEDS: Cholecalciferol (Vitamin D3) 400 Unit Tab PO SCH ×2 (07:35→17:39)
[2016-11-04] MEDS: Bisoprolol 5 MG Tab PO SCH (07:36)
[2016-11-04] MEDS: Arformoterol 15 MCG/2 ML Neb Soln INH SCH ×2 (07:43→19:29)
[2016-11-04] MEDS: Furosemide 20 MG Tab PO SCH (11:16)
[2016-11-04] MEDS: Albuterol/Ipratropium 3.0-0.5 MG/3 ML Neb Soln INH PRN (14:22)
[2016-11-05] MEDS: Budesonide 0.5 MG/2 ML Neb Susp INH SCH (07:33)
[2016-11-05] MEDS: Arformoterol 15 MCG/2 ML Neb Soln INH SCH (07:33)
[2016-11-05] MEDS: Albuterol/Ipratropium 4 GM Inhalation Spray INH SCH ×2 (07:34→11:52)
[2016-11-05] MEDS: Omeprazole 20 MG Cap.CR PO SCH (07:35)
[2016-11-05] MEDS: Furosemide 40 MG Tab PO SCH (07:36)
[2016-11-05] MEDS: Isosorbide Mononitrate 60 MG Tab.ER PO SCH (07:36)
[2016-11-05] MEDS: Insulin Detemir 100 Units/ML 3 ML Pen SUBCUT SCH (07:37)
[2016-11-05] MEDS: Gabapentin 300 MG Cap PO SCH ×2 (07:38→11:53)
[2016-11-05] MEDS: Polyvinyl Alcohol 1.4% Ophth Soln 15 ML Bottle EYEBOTH SCH ×2 (07:38→11:54)
[2016-11-05] MEDS: predniSONE 20 MG Tab PO SCH (07:39)
[2016-11-05] MEDS: Multivitamin Tab PO SCH (07:40)
[2016-11-05] MEDS: Cholecalciferol (Vitamin D3) 400 Unit Tab PO SCH (07:41)
[2016-11-05] MEDS: Bisoprolol 5 MG Tab PO SCH (07:42)
[2016-11-05 09:51] VITALS: BP 118/55
[2016-11-05] MEDS: Furosemide 20 MG Tab PO SCH (11:53)
--- NOTE | 2016-11-05 14:07 | PCM.PN ---
- General Info Date of Service: 11/05/16 Functional Status: Reports: pain controlled, ambulating - Review of Systems General: Reports: No Symptoms HEENT: Reports: no symptoms Pulmonary: Reports: shortness of breath (but improved) Cardiovascular: Reports: No Symptoms Gastrointestinal: Reports: No symptoms, Other (weight loss 30 pounds trying to lose) Genitourinary: Reports: no symptoms Musculoskeletal: Reports: no symptoms Skin: Reports: no symptoms Neurological: Reports: No Symptoms Psychiatric: Reports: no symptoms, other (happy to be going home) - Patient Data Vitals - most recent: Last Vital Signs Temp 97.8 F 11/05/16 09:00 Pulse 70 11/05/16 09:00 Resp 18 11/05/16 09:00 BP 118/55 L 11/05/16 09:00 Pulse Ox 97 11/05/16 09:00 Weight - most recent: 271 lb 3 oz I&O - last 24 hours: Intake & Output 11/04/16 11/05/16 11/05/16 22:59 06:59 14:59 Intake Total 200 Balance 200 Med Orders - Current: Current Medications Albuterol (Proventil Neb Soln) 2.5 mg NEB Q4H PRN PRN Reason: Shortness of Breath Last Admin: 10/27/16 07:38 Dose: 2.5 mg Albuterol/Ipratropium (Combivent Respimat) 0 gm INH QIDRT [facility] Last Admin: 11/05/16 11:52 Dose: 1 puff Albuterol/Ipratropium (Duoneb 3.0-0.5 Mg/3 Ml) 3 ml INH Q4HRRT PRN PRN Reason: SOB/WHEEZING Last Admin: 11/04/16 14:22 Dose: 3 ml Arformoterol Tartrate (Brovana) 15 mcg INH [id number] [facility] Last Admin: 11/05/16 07:33 Dose: 15 mcg Artificial Tears (Liquitears 1.4% Ophth Soln) 0 ml EYEBOTH TID [facility] Last Admin: 11/05/16 11:54 Dose: 1 drop Bisoprolol Fumarate (Zebeta) 15 mg PO DAILY [facility] Last Admin: 11/05/16 07:42 Dose: 15 mg Budesonide (Pulmicort) 0.5 mg INH [id number] [facility] Last Admin: 11/05/16 07:33 Dose: 0.5 mg Calcium Carbonate/Glycine (Tums Extra Strength) 750 mg PO ASDIRECTED PRN PRN Reason: Heartburn Cholecalciferol (Vitamin D3) 400 units PO BID [facility] Last Admin: 11/05/16 07:41 Dose: 400 units Furosemide (Lasix) 20 mg PO DAILY@1200 [facility] Last Admin: 11/05/16 11:53 Dose: 20 mg Furosemide (Lasix) 40 mg PO DAILY [facility] Last Admin: 11/05/16 07:36 Dose: 40 mg Gabapentin (Neurontin) 300 mg PO TID [facility] Last Admin: 11/05/16 11:53 Dose: 300 mg Insulin Detemir (Levemir) 17 unit SUBCUT DAILY [facility] Last Admin: 11/05/16 07:37 Dose: 17 units Isosorbide Mononitrate (Imdur) 60 mg PO DAILY [facility] Last Admin: 11/05/16 07:36 Dose: 60 mg Multivitamins/Minerals/Vitamin C (Tab-A-Prisca) 1 tab PO DAILY [facility] Last Admin: 11/05/16 07:40 Dose: 1 tab Omeprazole (Omeprazole) 20 mg PO BIDAC [facility] Last Admin: 11/05/16 07:35 Dose: 20 mg Prednisone (Prednisone) 20 mg PO DAILY [facility] Stop: 11/07/16 08:01 Last Admin: 11/05/16 07:39 Dose: 20 mg Prednisone (Prednisone) 10 mg PO DAILY [facility] Discontinued Medications Aspirin (Aspirin) 81 mg PO DAILY [facility] Last Admin: 10/30/16 07:15 Dose: 81 mg Hydrocortisone Acetate (Anucort-Hc) 25 mg RECTAL BID [facility] Last Admin: 10/26/16 19:31 Dose: Not Given Insulin Detemir (Levemir) 0 unit SUBCUT QAM [facility] Last Admin: 10/27/16 08:03 Dose: 17 units Prednisone (Prednisone) 40 mg PO DAILY [facility] Stop: 10/31/16 08:01 Last Admin: 10/31/16 07:29 Dose: 40 mg - Exam Quality Assessment: supplemental oxygen General: alert, cooperative, no acute distress HEENT: Mucous membr. moist/pink Neck: trachea midline, no JVD Lungs: Normal respiratory effort, Decreased breath sounds, Rhonchi Cardiovascular: Regular Rate, Regular Rhythm Abdomen: bowel sounds present, soft, no tenderness, no distension (Male) Exam: Deferred Back Exam: normal inspection Extremities: no edema Skin: warm, dry, intact, ecchymosis (from previous IV sites and lab draws) Neurological: no new focal deficit Psy/Mental Status: alert, normal affect, normal mood - Problem List & Annotations (1) Acidosis SNOMED Code(s): 00650761 Code(s): E87.2 - ACIDOSIS Status: Acute Priority: High Current Visit: No (2) Anemia due to medication SNOMED Code(s): 897274011 Code(s): D64.89 - OTHER SPECIFIED ANEMIAS Status: Acute Priority: Medium Current Visit: No (3) CHF, Congestive heart failure SNOMED Code(s): 90971429 Code(s): I50.9 - HEART FAILURE, UNSPECIFIED Status: Acute Priority: High Current Visit: No Annotation/Comment:: History of recurrent CHF with recent hospitalization as above. High-dose IV Lasix given in the emergency room with continuation of aggressive IV Lasix therapy with caution secondary to his history of renal insufficiency. Moderate CHF by chest x-ray with elevated BNP and some change in his troponin I. Additional evidence of elevated cardiac index with ASA and Plavix given after results were obtained. Initiated subcutaneous Lovenox therapy in the emergency room. Otherwise initiated standard rule out [place] orders. Various therapeutic options were given to the patient and his , who requested further care in this facility for now. No chest pain or anginal type symptoms. (4) COPD, Moderate chronic obstructive pulmonary disease SNOMED Code(s): 267595397 Code(s): J44.9 - CHRONIC OBSTRUCTIVE PULMONARY DISEASE, UNSPECIFIED Status : Acute Priority: Medium Current Visit: No Annotation/Comment:: Possible beginning right middle lobe pneumonia, however difficult to assess. Patient is afebrile with leukocytosis possibly secondary to stress reaction from his CHF. Blood cultures x2 collected. Aggressive nebulizer therapy, which was also given in the emergency room. IV Solu-Medrol therapy with caution secondary to his diabetes (5) D-dimer, elevated SNOMED Code(s): 968316638 Code(s): R79.1 - ABNORMAL COAGULATION PROFILE Status: Acute Priority: High Current Visit: No Onset Date: 06/29/16 Annotation/Comment:: Chronic D -dimer elevation with negative chest and venous Doppler studies in June as above. D-dimer elevation actually improved from last hospitalization. (6) Diabetes mellitus SNOMED Code(s): 58313052 Code(s): E11.9 - TYPE 2 DIABETES MELLITUS WITHOUT COMPLICATIONS Status: Acute Priority: Medium Current Visit: No Annotation/Comment:: Glycosylated hemoglobin 10.9 (7) HTN, Benign hypertension SNOMED Code(s): 83733380 Code(s): I10 - ESSENTIAL (PRIMARY) HYPERTENSION Status: Acute Priority: High Current Visit: No Annotation/Comment:: Blood pressures under good control in the emergency room (8) Heart disease SNOMED Code(s): 72925728 Code(s): I51.9 - HEART DISEASE, UNSPECIFIED Status: Acute Priority: High Current Visit: No Annotation/Comment:: Normal troponin. CK-MB and index remain elevated. (9) Hypomagnesemia SNOMED Code(s): 366832308 Code(s): E83.42 - HYPOMAGNESEMIA Status: Acute Priority: Medium Current Visit: No Onset Date: 06/29/16 Annotation/Comment:: Continue Magnesium oxide with caution secondary to his renal function (10) Kidney disease SNOMED Code(s): 05948501 Code(s): N28.9 - DISORDER OF KIDNEY AND URETER, UNSPECIFIED Status: Acute Priority: High Current Visit: No Annotation/Comment:: Note chronic renal disease with last creatinine level unknown at this time. Nephrology consultation as needed with current Lasix, metformin, Monopril, and allopurinol therapy with possible medication adjustments required. (11) Osteoarthritis SNOMED Code(s): 245642924 Code(s): M19.90 - UNSPECIFIED OSTEOARTHRITIS, UNSPECIFIED SITE Status: Acute Priority: Medium Current Visit: No Annotation/Comment:: Gen. arthralgias recently. Note high-dose oral steroid therapy (12) Peptic reflux disease SNOMED Code(s): 03461830 Code(s): K21.9 - GASTRO-ESOPHAGEAL REFLUX DISEASE WITHOUT ESOPHAGITIS Status: Acute Priority: Medium Current Visit: No Annotation/Comment:: IV Protonix given as GI prophylaxis in the emergency room no evidence of acute GI bleed with Lovenox to be initiated with caution (13) Hypoalbuminemia SNOMED Code(s): 872642527 Code(s): E88.09 - OTH DISORDERS OF PLASMA-PROTEIN METABOLISM, NEC Status: Chronic Priority: Medium Current Visit: No Annotation/Comment:: High- protein Glucerna supplements with caution secondary to his renal function (14) Renal insufficiency SNOMED Code(s): 213445102 Code(s): N28.9 - DISORDER OF KIDNEY AND URETER, UNSPECIFIED Status: Chronic Priority: Medium Current Visit: No Annotation/Comment:: IV Lasix therapy as above. Continue to observe closely - Problem List Review Problem List Initiated/Reviewed/Updated: Yes - My Orders Last 24 Hours: My Active Orders 11/05/16 13:33 Ready for Discharge [RC] PER UNIT ROUTINE 11/08/16 08:00 predniSONE 10 mg PO DAILY - Plan Plan:: 10/26/16 Dusty Seaman MD Recent hospitalization. Now needs swing bed status for PT-OT for strengthening. 11/05/16 Dusty Seaman MD He has improved a lot. Lost 30 pounds which is good. Breathing still short but improved. Blood sugars have been very good range. Discussed medications ( prednisone dosage), healthy meal plan ( also in discussion) counting carbs, and portion size. He will follow up with his usual provider Tr Nuñez at [facility] in 1-2 weeks and he already has follow-up with pulmonary and cardiology.
--- NOTE | 2016-11-05 14:09 | PCM.DCSUM1 ---
Discharge Summary - Discharge Data Discharge Date: 11/05/16 Discharge Disposition: Home, Self-Care 01 Condition: Good - Discharge Diagnosis/Problem(s) (1) Acidosis SNOMED Code(s): 83702276 ICD Code: E87.2 - ACIDOSIS Status: Acute Priority: High Current Visit: No (2) Anemia due to medication SNOMED Code(s): 708862987 ICD Code: D64.89 - OTHER SPECIFIED ANEMIAS Status: Acute Priority: Medium Current Visit: No (3) CHF, Congestive heart failure SNOMED Code(s): 74457722 ICD Code: I50.9 - HEART FAILURE, UNSPECIFIED Status: Acute Priority: High Current Visit: No Problem Details: History of recurrent CHF with recent hospitalization as above. High-dose IV Lasix given in the emergency room with continuation of aggressive IV Lasix therapy with caution secondary to his history of renal insufficiency. Moderate CHF by chest x-ray with elevated BNP and some change in his troponin I. Additional evidence of elevated cardiac index with ASA and Plavix given after results were obtained. Initiated subcutaneous Lovenox therapy in the emergency room. Otherwise initiated standard rule out [place] orders. Various therapeutic options were given to the patient and his , who requested further care in this facility for now. No chest pain or anginal type symptoms. (4) COPD, Moderate chronic obstructive pulmonary disease SNOMED Code(s): 923976755 ICD Code: J44.9 - CHRONIC OBSTRUCTIVE PULMONARY DISEASE, UNSPECIFIED Status : Acute Priority: Medium Current Visit: No Problem Details: Possible beginning right middle lobe pneumonia, however difficult to assess. Patient is afebrile with leukocytosis possibly secondary to stress reaction from his CHF. Blood cultures x2 collected. Aggressive nebulizer therapy, which was also given in the emergency room. IV Solu-Medrol therapy with caution secondary to his diabetes (5) D-dimer, elevated SNOMED Code(s): 601787791 ICD Code: R79.1 - ABNORMAL COAGULATION PROFILE Status: Acute Priority: High Current Visit: No Onset Date: 06/29/16 Problem Details: Chronic D- dimer elevation with negative chest and venous Doppler studies in June as above. D-dimer elevation actually improved from last hospitalization. (6) Diabetes mellitus SNOMED Code(s): 05266126 ICD Code: E11.9 - TYPE 2 DIABETES MELLITUS WITHOUT COMPLICATIONS Status: Acute Priority: Medium Current Visit: No Problem Details: Glycosylated hemoglobin 10.9 (7) HTN, Benign hypertension SNOMED Code(s): 82266111 ICD Code: I10 - ESSENTIAL (PRIMARY) HYPERTENSION Status: Acute Priority: High Current Visit: No Problem Details: Blood pressures under good control in the emergency room (8) Heart disease SNOMED Code(s): 56494680 ICD Code: I51.9 - HEART DISEASE, UNSPECIFIED Status: Acute Priority: High Current Visit: No Problem Details: Normal troponin. CK-MB and index remain elevated. (9) Hypomagnesemia SNOMED Code(s): 243987511 ICD Code: E83.42 - HYPOMAGNESEMIA Status: Acute Priority: Medium Current Visit: No Onset Date: 06/29/16 Problem Details: Continue Magnesium oxide with caution secondary to his renal function (10) Kidney disease SNOMED Code(s): 43125226 ICD Code: N28.9 - DISORDER OF KIDNEY AND URETER, UNSPECIFIED Status: Acute Priority: High Current Visit: No Problem Details: Note chronic renal disease with last creatinine level unknown at this time. Nephrology consultation as needed with current Lasix, metformin, Monopril, and allopurinol therapy with possible medication adjustments required. (11) Osteoarthritis SNOMED Code(s): 691867738 ICD Code: M19.90 - UNSPECIFIED OSTEOARTHRITIS, UNSPECIFIED SITE Status: Acute Priority: Medium Current Visit: No Problem Details: Gen. arthralgias recently. Note high-dose oral steroid therapy (12) Peptic reflux disease SNOMED Code(s): 20423800 ICD Code: K21.9 - GASTRO-ESOPHAGEAL REFLUX DISEASE WITHOUT ESOPHAGITIS Status: Acute Priority: Medium Current Visit: No Problem Details: IV Protonix given as GI prophylaxis in the emergency room no evidence of acute GI bleed with Lovenox to be initiated with caution (13) Hypoalbuminemia SNOMED Code(s): 684013821 ICD Code: E88.09 - OTH DISORDERS OF PLASMA-PROTEIN METABOLISM, NEC Status: Chronic Priority: Medium Current Visit: No Problem Details: High-protein Glucerna supplements with caution secondary to his renal function (14) Renal insufficiency SNOMED Code(s): 572459703 ICD Code: N28.9 - DISORDER OF KIDNEY AND URETER, UNSPECIFIED Status: Chronic Priority: Medium Current Visit: No Problem Details: IV Lasix therapy as above. Continue to observe closely - Patient Summary/Data Consults: Consultations 10/26/16 13:37 Consult to Case Management [CONS] Routine OT Evaluation and Treatment [CONS] Routine PT Evaluation and Treatment [CONS] Routine - Patient Instructions Diet: Diabetic Diet Activity: As Tolerated - Discharge Plan Home Medications: Home Meds Albuterol/Ipratropium [DuoNeb 3.0-0.5 MG/3 ML] 3 ml INH DAILY@1200 05/04/14 [ History] Arformoterol [Brovana] 2 ml INH BID 05/04/14 [History] Aspirin [Jaswinder Chewable Aspirin] 81 mg PO DAILY 05/04/14 [History] Bisoprolol Fumarate [Zebeta] 3 tab PO DAILY 05/04/14 [History] Budesonide [Pulmicort] 2 ml INH BID 05/04/14 [History] Calcium Carbonate [Tums Extra Strength] 750 mg PO ASDIRECTED PRN 05/04/14 [ History] Cholecalciferol (Vitamin D3) [Vitamin D3] 400 unit PO BID 05/04/14 [History] Furosemide 40 mg PO DAILY 05/04/14 [History] Gabapentin [Neurontin] 300 mg PO TID 05/04/14 [History] Multivitamin [Multivitamins] 1 tab PO DAILY 05/04/14 [History] Omeprazole 20 mg PO BID 05/04/14 [History] Lancets 1 strip .XX ASDIRECTED 10/01/14 [History] Albuterol/Ipratropium [Combivent Respimat] 1 puff INH QID 06/29/16 [History] Carboxymethylcellulose Sodium [Refresh Tears 0.5%] 1 drop EYEBOTH TID 06/29/16 [ History] Furosemide 20 mg PO DAILY@1200 06/29/16 [History] Insulin Detemir [Levemir Flextouch] 17 units SUBCUT QAM 06/29/16 [History] Albuterol Sulfate 2.5 mg NEB Q4H PRN 10/19/16 [History] Isosorbide Mononitrate [Imdur] 60 mg PO DAILY 10/26/16 [History] Prednisone [IJD: predniSONE] 20 mg PO DAILY #30 tablet 11/05/16 [Rx] Referrals: Aixa Veronica MD [Primary Care Provider] - - Discharge Summary/Plan Comment DC Time >30 min.: No Discharge Summary/Plan Comment: 11/05/16 Follow up with Tr Sher. - Patient Data Vitals - Most Recent: Last Vital Signs Temp 97.8 F 11/05/16 09:00 Pulse 70 11/05/16 09:00 Resp 18 11/05/16 09:00 BP 118/55 L 11/05/16 09:00 Pulse Ox 97 11/05/16 09:00 Weight - Most Recent: 271 lb 3 oz I&O - Last 24 hours: Intake & Output 11/04/16 11/05/16 11/05/16 22:59 06:59 14:59 Intake Total 200 Balance 200 Med Orders - Current: Current Medications Albuterol (Proventil Neb Soln) 2.5 mg NEB Q4H PRN PRN Reason: Shortness of Breath Last Admin: 10/27/16 07:38 Dose: 2.5 mg Albuterol/Ipratropium (Combivent Respimat) 0 gm INH QIDRT [facility] Last Admin: 11/05/16 11:52 Dose: 1 puff Albuterol/Ipratropium (Duoneb 3.0-0.5 Mg/3 Ml) 3 ml INH Q4HRRT PRN PRN Reason: SOB/WHEEZING Last Admin: 11/04/16 14:22 Dose: 3 ml Arformoterol Tartrate (Brovana) 15 mcg INH [id number] [facility] Last Admin: 11/05/16 07:33 Dose: 15 mcg Artificial Tears (Liquitears 1.4% Ophth Soln) 0 ml EYEBOTH TID [facility] Last Admin: 11/05/16 11:54 Dose: 1 drop Bisoprolol Fumarate (Zebeta) 15 mg PO DAILY [facility] Last Admin: 11/05/16 07:42 Dose: 15 mg Budesonide (Pulmicort) 0.5 mg INH [id number] [facility] Last Admin: 11/05/16 07:33 Dose: 0.5 mg Calcium Carbonate/Glycine (Tums Extra Strength) 750 mg PO ASDIRECTED PRN PRN Reason: Heartburn Cholecalciferol (Vitamin D3) 400 units PO BID [facility] Last Admin: 11/05/16 07:41 Dose: 400 units Furosemide (Lasix) 20 mg PO DAILY@1200 [facility] Last Admin: 11/05/16 11:53 Dose: 20 mg Furosemide (Lasix) 40 mg PO DAILY [facility] Last Admin: 11/05/16 07:36 Dose: 40 mg Gabapentin (Neurontin) 300 mg PO TID [facility] Last Admin: 11/05/16 11:53 Dose: 300 mg Insulin Detemir (Levemir) 17 unit SUBCUT DAILY [facility] Last Admin: 11/05/16 07:37 Dose: 17 units Isosorbide Mononitrate (Imdur) 60 mg PO DAILY [facility] Last Admin: 11/05/16 07:36 Dose: 60 mg Multivitamins/Minerals/Vitamin C (Tab-A-Prisca) 1 tab PO DAILY [facility] Last Admin: 11/05/16 07:40 Dose: 1 tab Omeprazole (Omeprazole) 20 mg PO BIDAC [facility] Last Admin: 11/05/16 07:35 Dose: 20 mg Prednisone (Prednisone) 20 mg PO DAILY [facility] Stop: 11/07/16 08:01 Last Admin: 11/05/16 07:39 Dose: 20 mg Prednisone (Prednisone) 10 mg PO DAILY [facility] Discontinued Medications Aspirin (Aspirin) 81 mg PO DAILY [facility] Last Admin: 10/30/16 07:15 Dose: 81 mg Hydrocortisone Acetate (Anucort-Hc) 25 mg RECTAL BID [facility] Last Admin: 10/26/16 19:31 Dose: Not Given Insulin Detemir (Levemir) 0 unit SUBCUT QAM [facility] Last Admin: 10/27/16 08:03 Dose: 17 units Prednisone (Prednisone) 40 mg PO DAILY [facility] Stop: 10/31/16 08:01 Last Admin: 10/31/16 07:29 Dose: 40 mg *Q Meaningful Use (DIS) - VTE *Q VTE Criteria *Q: VTE Mechanical Contraindications *Q: At Risk for Falls VTE Pharmacological Contraindications *Q: Not Candidate LT Anticoag VTE Anticoagulation Contraindications: Med/tx not indicated/need - Stroke *Q Stroke Criteria *Q: - AMI *Q AMI Criteria *Q:
[2016-11-08] MEDS ORDERED: predniSONE 5 MG Tab PO SCH (08:00)
== END 2016-11-05 14:10 | disposition home or self-care (01) | DRG 556 ==
LOC: LL.SWG 12:55
PROVIDERS: ADMIT Family Medicine; ATTEND Family Medicine
DX: M62.81 Muscle weakness (generalized) (principal); K62.5 Hemorrhage of anus and rectum; I13.0 Hypertensive heart and chronic kidney disease with heart failure and stage 1 through stage 4 chronic kidney disease, or unspecified chronic kidney disease; I50.30 Unspecified diastolic (congestive) heart failure; D64.89 Other specified anemias; I25.10 Atherosclerotic heart disease of native coronary artery without angina pectoris; N18.3 Chronic kidney disease, stage 3 (moderate); Z87.891 Personal history of nicotine dependence; E78.00 Pure hypercholesterolemia, unspecified; J44.9 Chronic obstructive pulmonary disease, unspecified; R79.1 Abnormal coagulation profile; E11.21 Type 2 diabetes mellitus with diabetic nephropathy; E11.40 Type 2 diabetes mellitus with diabetic neuropathy, unspecified; E11.319 Type 2 diabetes mellitus with unspecified diabetic retinopathy without macular edema; Z79.4 Long term (current) use of insulin; M19.90 Unspecified osteoarthritis, unspecified site; K21.9 Gastro-esophageal reflux disease without esophagitis; I71.4 Abdominal aortic aneurysm, without rupture; I89.0 Lymphedema, not elsewhere classified; K59.00 Constipation, unspecified; N40.0 Benign prostatic hyperplasia without lower urinary tract symptoms; M10.9 Gout, unspecified; M81.0 Age-related osteoporosis without current pathological fracture; H35.30 Unspecified macular degeneration; H91.90 Unspecified hearing loss, unspecified ear; Z79.82 Long term (current) use of aspirin; Z99.81 Dependence on supplemental oxygen; Z79.899 Other long term (current) drug therapy; Z88.8 Allergy status to other drugs, medicaments and biological substances
CPT/HCPCS: 36415; 80048; 80053; 80171; 82272; 82962; 83735; 84550; 85025; 85027; 94640; 94664; 97110-GO; 97110-GP; 97116-GP; 97161-GP; 97165-GO; 97530-GO; 97530-GP; 97535-GO; A9270-GY; J1815-GY; J7620-GY

== ENCOUNTER 2017-06-13 14:27 | Inpatient (IN) | payer MEDICARE, BC ==
[2017-06-13] MEDS ORDERED: Calcium Carbonate 750 MG Tab.Chew PO PRN (16:41)
[2017-06-13] MEDS ORDERED: Albuterol 0.083% 2.5 MG/3 ML Neb Soln NEB PRN (16:41)
[2017-06-13] MEDS: Gabapentin 300 MG Cap PO SCH (18:05)
[2017-06-13] MEDS: Omeprazole 20 MG Cap.CR PO SCH (18:05)
[2017-06-13] MEDS: Polyvinyl Alcohol 1.4% Ophth Soln 15 ML Bottle EYEBOTH SCH (18:05)
[2017-06-13] MEDS: Budesonide 0.5 MG/2 ML Neb Susp INH SCH (20:28)
[2017-06-13] MEDS: Albuterol/Ipratropium 4 GM Inhalation Spray INH SCH (20:28)
[2017-06-13] MEDS: Arformoterol 15 MCG/2 ML Neb Soln INH SCH (20:28)
--- NOTE | 2017-06-13 20:51 | PCM.HP ---
H&P History of Present Illness - General Date of Service: 06/13/17 Admit Problem/Dx: Admission Diagnosis/Problem Admission Diagnosis/Problem COPD with acute lower respiratory infection Source of Information: Patient, Old Records History Limitations: Reports: No Limitations - History of Present Illness Initial Comments - Free Text/Narative: 76 yowm known COPD, diagnosed with bilateral pneumonia, hospitalized in [place] now admitted to [facility] bed due to generalized weakness for PT-OT. Improves with: Reports: None Worsens with: Reports: None Associated Symptoms: Reports: No Other Symptoms - Related Data Allergies/Adverse Reactions: Allergies Allergy/AdvReac Type Severity Reaction Status Date / Time celecoxib Allergy Cannot Verified 06/13/17 18:47 Remember diltiazem Allergy Cannot Verified 06/13/17 18:47 Remember metoprolol Allergy Cannot Verified 06/13/17 18:47 Remember Ngbpxww-Yut-Uyp Reductase Allergy Muscle Verified 06/13/17 18:47 Inhibitor Aches tiotropium bromide Allergy URINARY Verified 06/13/17 18:47 [From Spiriva with RETENTION HandiHaler] Home Medications: Home Meds Arformoterol [Brovana] 2 ml INH BID 05/04/14 [History] Aspirin [Jaswinder Chewable Aspirin] 81 mg PO DAILY 05/04/14 [History] Bisoprolol Fumarate [Zebeta] 15 mg PO DAILY 05/04/14 [History] Budesonide [Pulmicort] 2 ml INH BID 05/04/14 [History] Calcium Carbonate [Tums Extra Strength] 750 mg PO ASDIRECTED PRN 05/04/14 [ History] Furosemide 40 mg PO DAILY 05/04/14 [History] Gabapentin [Neurontin] 300 mg PO TID 05/04/14 [History] Multivitamin [Multivitamins] 1 tab PO DAILY 05/04/14 [History] Omeprazole 20 mg PO BID 05/04/14 [History] Albuterol/Ipratropium [Combivent Respimat] 1 puff INH QID 06/29/16 [History] Carboxymethylcellulose Sodium [Refresh Tears 0.5%] 1 drop EYEBOTH TID 06/29/16 [ History] Furosemide 20 mg PO DAILY@1200 06/29/16 [History] Insulin Detemir [Levemir Flextouch] 23 units SUBCUT QAM 06/29/16 [History] Albuterol Sulfate 2.5 mg NEB Q4H PRN 10/19/16 [History] Isosorbide Mononitrate [Imdur] 60 mg PO DAILY 10/26/16 [History] Allopurinol [Zyloprim] 300 mg PO QAM 06/13/17 [History] Cholecalciferol (Vitamin D3) [Vitamin D3] 1,000 unit PO DAILY 06/13/17 [History] predniSONE [Prednisone] 20 mg PO DAILY 06/13/17 [History] Past Medical History HEENT History: Reports: Cataract, Hard of Hearing, Impaired Vision, Macular Degeneration, Other (See Below) Other HEENT History: Glasses, macular degeneration and diabetic retinopathy, 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 and chronic left- sided tinnitus secondary to Mnire's disease, patient has not used his hearing aides secondary to ineffectiveness Cardiovascular History: Reports: Aneurysm, Arrhythmia, CAD, Cardiomyopathy, Heart Failure, Heart Murmur, High Cholesterol, Hypertension, PVD, Other (See Below) Other Cardiovascular History: PVCs, bigeminy, complete right bundle branch block , PACs, cardiomegaly with diastolic dysfunction by echocardiogram, recurrent CHF , tricuspid valve insufficiency, infrarenal abdominal aortic aneurysm initially diagnosed in 2006, chronic lymphedema of the lower extremities Respiratory History: Reports: Bronchitis, Recurrent, COPD, Pneumonia, Recurrent , Pulmonary Fibrosis, Sleep Apnea, Other (See Below) Other Respiratory History: 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 pylori , umbilical hernia, benign hepatic cysts by CT scan on 05/26/98 Genitourinary History: Reports: Acute Renal Failure, BPH, Chronic Renal Insuffiency, Diabetic Nephropathy, Prostate Disorder, Renal Disease, Other (See Below) Other Genitourinary History: Acute renal failure with secondary hypotension secondary to NSAIDs use on 10/01/14, BPH with history of PSA elevation, end- stage renal disease-stage III, erectile dysfunction Musculoskeletal History: Reports: Arthritis, Back Pain, Chronic, Fracture, Gout , Neck Pain, Chronic, Osteoarthritis, Osteoporosis, Other (See Below) Other Musculoskeletal History: Spinal stenosis at L4-5 with disc prolapse, positive NENO however no known SLE, proximal left fibular fracture in September 2014 Neurological History: Reports: Neuropathy, Diabetic, Neuropathy, Peripheral Psychiatric History: Reports: None Endocrine/Metabolic History: Reports: Diabetes, Type II, IDDM, Osteoporosis Hematologic History: Reports: None 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/04 Dermatologic History: Reports: Venous Stasis Dermatitis - Infectious Disease History Infectious Disease History: Reports: Chicken Pox, Helicobacter Pylori, Mumps, Shingles - Past Surgical History Head Surgeries/Procedures: Reports: None HEENT Surgical History: Reports: Cataract Surgery, Laser Surgery, Oral Surgery, Tonsillectomy, Other (See Below) GI Surgical History: Reports: Colonoscopy, EGD, Other (See Below) Male Surgical History: Reports: Prostatectomy, TURP-Transurethral Resection of Prostate, Other (See Below) Neurological Surgical History: Reports: Lumbar Spine, Other (See Below) Oncologic Surgical History: Reports: Other (See Below) Dermatological Surgical History: Reports: Skin Biopsy - Past Imaging History Past Imaging History: Reports: Cardiac Echo, Carotid US, CAT Scan, DEXA Scan, Holter Monitor, MRI, PFT, Sleep Study, Stress Testing, Ultrasound, Venous Doppler, Other (See Below) Social & Family History - Family History HEENT: Reports: None Cardiac: Reports: CAD, Hypertension, ND, Other (See Below) Other Cardiac Family History: Maternal uncle with fatal ND at age 42, another maternal uncle with fatal ND at age 48, mother with hypertension, patient denies history of coronary artery disease in sister despite [facility] records Respiratory: Reports: COPD, Sleep Apnea, Other (See Below) Other Respiratory Family Hisory: Brother with COPD and sleep apnea with history of tobacco use : Reports: None OBGYN: Reports: None Musculoskeletal: Reports: Arthritis, Osteoarthritis, Other (See Below) Other Musculoskeletal Family History: Brother with osteoarthritis Neurological: Reports: Cerebral Aneurysms, CVA, Neuropathy, Peripheral, Other ( See Below) Other Neurological Family History: Sister with fatal cerebral aneurysm at age 42 , maternal uncle with fatal hemorrhagic CVA at age 65 , patient denies CVA in brother despite [facility] records, brother with peripheral neuropathy Psychiatric: Reports: None Endocrine/Metabolic: Reports: None Hematologic: Reports: None Immunologic: Reports: None Oncologic: Reports: Breast, Other (See Below) Other Oncologic Family History: Mother with unknown type of fatal cancer at age 65, sister with breast cancer in her 60s - Tobacco Use Smoking Status *Q: Former Smoker Years of Tobacco use: 51 Packs/Tins Daily: 2 Used Tobacco, but Quit: Yes Month Tobacco Last Used: 1-1/2 and 3 packs of cigarettes per day between ages 16 and 67 Second Hand Smoke Exposure: No - Caffeine Use Caffeine Use: Reports: Coffee, Soda. Denies: Energy Drinks, Tea Caffeine Use Comment: 3-4 cups of coffee per day, 1 soda per week - Alcohol Use Days Per Week of Alcohol Use: 2 (No previous DWIs, problems with alcohol abuse, etc.) Number of Drinks Per Day: 2 (Usually whiskey) Total Drinks Per Week: 4 - Recreational Drug Use Recreational Drug Use: No Drug Use in Last 12 Months: No - Living Situation & Occupation Living situation: Reports: Occupation: Retired H&P Review of Systems - Review of Systems: Review Of Systems: See Below General: Reports: Weakness HEENT: Reports: No Symptoms Pulmonary: Reports: Shortness of Breath (chronic), Cough (chronic) Cardiovascular: Reports: Edema (bilateral and chronic) Gastrointestinal: Reports: Difficulty Swallowing, Other (reflux) Genitourinary: Reports: No Symptoms Musculoskeletal: Reports: No Symptoms Skin: Reports: No Symptoms Psychiatric: Reports: No Symptoms Neurological: Reports: Difficulty Walking, Weakness Hematologic/Lymphatic: Reports: No Symptoms Immunologic: Reports: No Symptoms Exam - Exam Exam: See Below - Vital Signs Vital Signs: Last Vital Signs Temp 98 F 06/13/17 16:19 Pulse 67 06/13/17 16:19 Resp 16 06/13/17 16:19 BP 125/58 L 06/13/17 16:19 Pulse Ox 97 06/13/17 16:19 Weight: 267 lb 4.8 oz - Exam Quality Assessment: Supplemental Oxygen General: Alert, Cooperative HEENT: Hearing Intact, Mucosa Moist & [place], Nares Patent, Pupils Equal, Pupils Reactive Neck: Trachea Midline Lungs: Normal Respiratory Effort, Decreased Breath Sounds Cardiovascular: Regular Rate, Regular Rhythm GI/Abdominal Exam: Normal Bowel Sounds, Soft, Non-Tender, No Distention (Male) Exam: Deferred Rectal (Males) Exam: Deferred Back Exam: Normal Inspection Extremities: Pedal Edema Skin: Warm, Dry, Intact Neurological: Cranial Nerves Intact, Other (weakness generalized) Neuro Extensive - Mental Status: Alert, Normal Mood/Affect, Normal Cognition Psychiatric: Alert, Normal Affect, Normal Mood *Q Meaningful Use (ADM) - VTE *Q VTE Criteria *Q: - Stroke *Q Stroke Criteria *Q: - AMI *Q AMI Criteria *Q: - Problem List (1) Bilateral pneumonia SNOMED Code(s): 309159551 ICD Code: J18.9 - PNEUMONIA, UNSPECIFIED ORGANISM Status: Acute Priority : High Current Visit: Yes Qualifiers: Pneumonia type: due to unspecified organism Lung location: unspecified part of lung Qualified Code(s): J18.9 - Pneumonia, unspecified organism (2) Chronic respiratory failure with hypoxia SNOMED Code(s): 077445186 ICD Code: J96.11 - CHRONIC RESPIRATORY FAILURE WITH HYPOXIA Status: Acute Priority: High Current Visit: Yes (3) Oxygen dependent SNOMED Code(s): 675097148326 ICD Code: Z99.81 - DEPENDENCE ON SUPPLEMENTAL OXYGEN Status: Acute Priority: High Current Visit: Yes (4) Septic shock SNOMED Code(s): 95730119 ICD Code: A41.9 - SEPSIS, UNSPECIFIED ORGANISM; R65.21 - SEVERE SEPSIS WITH SEPTIC SHOCK Status: Acute Priority: Low Current Visit: Yes (5) Weakness generalized SNOMED Code(s): 55010967 ICD Code: R53.1 - WEAKNESS Status: Acute Priority: High Current Visit: Yes (6) Physical deconditioning SNOMED Code(s): 01058214511218 ICD Code: R53.81 - OTHER [place] Status: Acute Priority: High Current Visit: Yes (7) Chronic kidney disease (CKD) SNOMED Code(s): 168542184 ICD Code: N18.9 - CHRONIC KIDNEY DISEASE, UNSPECIFIED Status: Acute Priority: High Current Visit: Yes Qualifiers: Chronic kidney disease stage: unspecified stage Qualified Code(s): N18.9 - Chronic kidney disease, unspecified (8) Gout SNOMED Code(s): 84679371 ICD Code: M10.9 - GOUT, UNSPECIFIED Status: Acute Priority: Low Current Visit: Yes Qualifiers: Gout site: unspecified site Gout etiology: due to renal impairment Chronicity: chronic Presence of tophus: without tophus Qualified Code(s): M1A.30X0 - Chronic gout due to renal impairment, unspecified site, without tophus (tophi) (9) CHF, Congestive heart failure SNOMED Code(s): 02939616 ICD Code: I50.9 - HEART FAILURE, UNSPECIFIED Status: Acute Priority: High Current Visit: No Problem Details: History of recurrent CHF with recent hospitalization as above. High-dose IV Lasix given in the emergency room with continuation of aggressive IV Lasix therapy with caution secondary to his history of renal insufficiency. Moderate CHF by chest x-ray with elevated BNP and some change in his troponin I. Additional evidence of elevated cardiac index with ASA and Plavix given after results were obtained. Initiated subcutaneous Lovenox therapy in the emergency room. Otherwise initiated standard rule out ND orders. Various therapeutic options were given to the patient and his , who requested further care in this facility for now. No chest pain or anginal type symptoms. (10) COPD, Moderate chronic obstructive pulmonary disease SNOMED Code(s): 456792099 ICD Code: J44.9 - CHRONIC OBSTRUCTIVE PULMONARY DISEASE, UNSPECIFIED Status : Acute Priority: Medium Current Visit: No Problem Details: Possible beginning right middle lobe pneumonia, however difficult to assess. Patient is afebrile with leukocytosis possibly secondary to stress reaction from his CHF. Blood cultures x2 collected. Aggressive nebulizer therapy, which was also given in the emergency room. IV Solu-Medrol therapy with caution secondary to his diabetes (11) Diabetes mellitus SNOMED Code(s): 08580901 ICD Code: E11.9 - TYPE 2 DIABETES MELLITUS WITHOUT COMPLICATIONS Status: Acute Priority: Medium Current Visit: No Problem Details: Glycosylated hemoglobin 10.9 (12) HTN, Benign hypertension SNOMED Code(s): 52368397 ICD Code: I10 - ESSENTIAL (PRIMARY) HYPERTENSION Status: Acute Priority: High Current Visit: No Problem Details: Blood pressures under good control in the emergency room (13) Heart disease SNOMED Code(s): 60825523 ICD Code: I51.9 - HEART DISEASE, UNSPECIFIED Status: Acute Priority: High Current Visit: No Problem Details: Normal troponin. CK-MB and index remain elevated. (14) Osteoarthritis SNOMED Code(s): 082343756 ICD Code: M19.90 - UNSPECIFIED OSTEOARTHRITIS, UNSPECIFIED SITE Status: Acute Priority: Medium Current Visit: No Problem Details: Gen. arthralgias recently. Note high-dose oral steroid therapy (15) Peptic reflux disease SNOMED Code(s): 58069795 ICD Code: K21.9 - GASTRO-ESOPHAGEAL REFLUX DISEASE WITHOUT ESOPHAGITIS Status: Acute Priority: Medium Current Visit: No Problem Details: IV Protonix given as GI prophylaxis in the emergency room no evidence of acute GI bleed with Lovenox to be initiated with caution (16) Anemia SNOMED Code(s): 569780268 ICD Code: D64.9 - ANEMIA, UNSPECIFIED Status: Chronic Priority: Medium Current Visit: No Problem Details: Stable anemia from hospitalization in June. Qualifiers: Anemia type: other cause Other causes of anemia: chronic disease, kidney Qualified Code(s): N18.9 - Chronic kidney disease, unspecified; D63.1 - Anemia in chronic kidney disease (17) GERD (gastroesophageal reflux disease) SNOMED Code(s): 613025478 ICD Code: K21.9 - GASTRO-ESOPHAGEAL REFLUX DISEASE WITHOUT ESOPHAGITIS Status: Acute Priority: Medium Current Visit: Yes Qualifiers: Esophagitis presence: esophagitis presence not specified Qualified Code(s) : K21.9 - Gastro-esophageal reflux disease without esophagitis (18) Chronic GERD SNOMED Code(s): 995063027 ICD Code: K21.9 - GASTRO-ESOPHAGEAL REFLUX DISEASE WITHOUT ESOPHAGITIS Status: Acute Priority: Medium Current Visit: Yes (19) Coronary artery disease SNOMED Code(s): 77489771 ICD Code: I25.10 - ATHSCL HEART DISEASE OF [place] CORONARY ARTERY W/O ANG PCTRS Status: Acute Current Visit: Yes Qualifiers: Coronary Disease-Associated Artery/Lesion type: unspecified vessel or lesion type [place] vs. transplanted heart: [place] heart Associated angina: without angina Qualified Code(s): I25.10 - Atherosclerotic heart disease of [place] coronary artery without angina pectoris (20) Neuropathy SNOMED Code(s): 190878332 ICD Code: G62.9 - POLYNEUROPATHY, UNSPECIFIED Status: Acute Priority: Medium Current Visit: Yes (21) Exertional dyspnea SNOMED Code(s): 39764337 ICD Code: R06.09 - OTHER FORMS OF DYSPNEA Status: Acute Priority: Medium Current Visit: Yes (22) Chronic diastolic (congestive) heart failure SNOMED Code(s): 985576665 ICD Code: I50.32 - CHRONIC DIASTOLIC (CONGESTIVE) HEART FAILURE Status: Acute Priority: Medium Current Visit: Yes (23) Obstructive sleep apnea of adult SNOMED Code(s): 2258380644438 ICD Code: G47.33 - OBSTRUCTIVE SLEEP APNEA (ADULT) (PEDIATRIC) Status: Acute Current Visit: Yes (24) Obstructive sleep apnea on CPAP SNOMED Code(s): 84458549 ICD Code: G47.33 - OBSTRUCTIVE SLEEP APNEA (ADULT) (PEDIATRIC); Z99.89 - DEPENDENCE ON OTHER ENABLING MACHINES AND DEVICES Status: Acute Priority: Low Current Visit: Yes (25) Dyslipidemia SNOMED Code(s): 116086250 ICD Code: E78.5 - HYPERLIPIDEMIA, UNSPECIFIED Status: Acute Current Visit : Yes (26) Dyslipidemia associated with type 2 diabetes mellitus SNOMED Code(s): 14981828 ICD Code: E11.69 - TYPE 2 DIABETES MELLITUS WITH OTHER SPECIFIED COMPLICATION ; E78.5 - HYPERLIPIDEMIA, UNSPECIFIED Status: Acute Priority: Low Current Visit: Yes (27) Obesity SNOMED Code(s): 760177469 ICD Code: E66.9 - OBESITY, UNSPECIFIED Status: Acute Current Visit: Yes Qualifiers: Obesity type: due to excess calories Obesity classification: adult class 2 (BMI 35 - 39.9) Serious obesity comorbidity presence: with serious comorbidity (28) Obesity (BMI 30-39.9) SNOMED Code(s): 532513612 ICD Code: E66.9 - OBESITY, UNSPECIFIED Status: Acute Current Visit: Yes Problem List Initiated/Reviewed/Updated: Yes Orders Last 24hrs: Active Orders 24 hr Category Date Time Status Patient Status [ADT] Routine ADT 06/13/17 16:36 Active Ambulate [RC] ASDIRECTED Care 06/13/17 16:36 Active Height and Weight [RC] PER UNIT ROUTINE Care 06/13/17 16:38 Active May Shower [RC] ASDIRECTED Care 06/13/17 16:36 Active Oxygen Therapy [RC] .PRN Care 06/13/17 16:36 Active VTE/DVT Education [RC] PER UNIT ROUTINE Care 06/13/17 16:36 Active Vital Signs [RC] PER UNIT ROUTINE Care 06/13/17 16:36 Active Consult to Case Management [CONS] Routine Cons 06/13/17 16:36 Active OT Evaluation and Treatment [CONS] Routine Cons 06/13/17 16:36 Active PT Evaluation and Treatment [CONS] Routine Cons 06/13/17 16:36 Active [place] [employer] Diet [DIET] Diet 06/13/17 Dinner Active Albuterol [Proventil Neb Soln] Med 06/13/17 16:41 Active 2.5 mg NEB Q4H PRN Albuterol/Ipratropium [Combivent Respimat] Med 06/13/17 20:00 Active 0 gm INH QIDRT Allopurinol [Zyloprim] Med 06/14/17 08:00 Active 300 mg PO QAM Arformoterol [Brovana] Med 06/13/17 20:00 Active 15 mcg INH BIDRT Aspirin Med 06/14/17 08:00 Active 81 mg PO DAILY Bisoprolol [Zebeta] Med 06/14/17 08:00 Active 15 mg PO DAILY Budesonide [Pulmicort] Med 06/13/17 20:00 Active 0.5 mg INH BIDRT Calcium Carbonate [Tums Extra Strength] Med 06/13/17 16:41 Active 750 mg PO ASDIRECTED PRN Cholecalciferol (Vitamin D3) [Vitamin D3] Med 06/14/17 08:00 Active 1,000 units PO DAILY Furosemide [Lasix] Med 06/14/17 12:00 Active 20 mg PO DAILY@1200 Furosemide [Lasix] Med 06/14/17 08:00 Active 40 mg PO DAILY Gabapentin [Neurontin] Med 06/13/17 18:00 Active 300 mg PO TID Insulin Detemir [Levemir] Med 06/14/17 08:00 Active 23 unit SUBCUT QAM Isosorbide Mononitrate [Imdur] Med 06/14/17 08:00 Active 60 mg PO DAILY Multivitamins [Tab-A-Prisca] Med 06/14/17 08:00 Active 1 tab PO DAILY Omeprazole Med 06/13/17 18:00 Active 20 mg PO BID Polyvinyl Alcohol [LiquiTears 1.4% Ophth Soln] Med 06/13/17 18:00 Active 0 ml EYEBOTH TID predniSONE Med 06/14/17 08:00 Active 20 mg PO DAILY Resuscitation Status Routine Resus Stat 06/13/17 16:36 Ordered Medication Orders Albuterol (Proventil Neb Soln) 2.5 mg NEB Q4H PRN PRN Reason: Shortness of Breath Albuterol/Ipratropium (Combivent Respimat) 0 gm INH QIDRT [facility] Last Admin: 06/13/17 20:28 Dose: Not Given Allopurinol (Zyloprim) 300 mg PO QAM [facility] Arformoterol Tartrate (Brovana) 15 mcg INH BIDRT [facility] Last Admin: 06/13/17 20:28 Dose: 15 mcg Artificial Tears (Liquitears 1.4% Ophth Soln) 0 ml EYEBOTH TID [facility] Last Admin: 06/13/17 18:05 Dose: 1 drop Aspirin (Aspirin) 81 mg PO DAILY [facility] Bisoprolol Fumarate (Zebeta) 15 mg PO DAILY [facility] Budesonide (Pulmicort) 0.5 mg INH BIDRT [facility] Last Admin: 06/13/17 20:28 Dose: 0.5 mg Calcium Carbonate/Glycine (Tums Extra Strength) 750 mg PO ASDIRECTED PRN PRN Reason: Heartburn Cholecalciferol (Vitamin D3) 1,000 units PO DAILY [facility] Furosemide (Lasix) 20 mg PO DAILY@1200 [facility] Furosemide (Lasix) 40 mg PO DAILY [facility] Gabapentin (Neurontin) 300 mg PO TID [facility] Last Admin: 06/13/17 18:05 Dose: 300 mg Insulin Detemir (Levemir) [facility] [place] Isosorbide Mononitrate (Imdur) 60 mg PO DAILY [facility] Multivitamins/Minerals/Vitamin C (Tab-A-Prisca) 1 tab PO DAILY [facility] Omeprazole (Omeprazole) 20 mg PO BID [facility] Last Admin: 06/13/17 18:05 Dose: 20 mg Prednisone (Prednisone) 20 mg PO DAILY [facility] Assessment/Plan Comment:: 06/13/17 Dusty Seaman MD 76 year old gentleman advanced COPD, oxygen dependent, chronic hypoxia. He developed bilateral pneumonia, sepsis. He was hospitalized [facility] now returns to [facility] due to generalized weakness for PT-OT.
[2017-06-14 07:22] LABS: O2 DELIVERY DEVICE NASAL CANNULA
[2017-06-14 07:41] LABS: CHLORIDE,CL 100 mmol/L (98-107); SODIUM,NA 138 mmol/L (136-145)
[2017-06-14 07:42] LABS: PH,VENOUS 7.45 (7.31-7.41)
[2017-06-14 07:43] LABS: BASE EXCESS VENOUS 8 mmol/L ((-2)-3); BICARBONATE,VENOUS 32 mmol/L (23-28); O2 SATURATION VENOUS 78 %; PCO2 VENOUS 46 mmHG (41-51); PO2 VENOUS 41 mmHG
[2017-06-14] MEDS: Arformoterol 15 MCG/2 ML Neb Soln INH SCH ×2 (08:11→19:51)
[2017-06-14] MEDS: Budesonide 0.5 MG/2 ML Neb Susp INH SCH ×2 (08:11→19:51)
[2017-06-14] MEDS: Bisoprolol 5 MG Tab PO SCH (08:12)
[2017-06-14] MEDS: Allopurinol 100 MG Tab PO SCH (08:12)
[2017-06-14] MEDS: Furosemide 20 MG Tab PO SCH ×2 (08:12→11:23)
[2017-06-14] MEDS: Isosorbide Mononitrate 60 MG Tab.ER PO SCH (08:13)
[2017-06-14] MEDS: Aspirin 81 MG Tab.Chew PO SCH (08:13)
[2017-06-14] MEDS: Gabapentin 300 MG Cap PO SCH ×3 (08:13→17:42)
[2017-06-14] MEDS: Multivitamin Tab PO SCH (08:13)
[2017-06-14] MEDS: Albuterol/Ipratropium 4 GM Inhalation Spray INH SCH ×4 (08:13→19:50)
[2017-06-14] MEDS: predniSONE 20 MG Tab PO SCH (08:13)
[2017-06-14] MEDS: Cholecalciferol (Vitamin D3) 1,000 Unit Tab PO SCH (08:13)
[2017-06-14] MEDS: Omeprazole 20 MG Cap.CR PO SCH ×2 (08:13→17:42)
[2017-06-14] MEDS: Polyvinyl Alcohol 1.4% Ophth Soln 15 ML Bottle EYEBOTH SCH ×3 (08:14→17:42)
[2017-06-14] MEDS: Insulin Detemir 100 Units/ML 3 ML Pen SUBCUT SCH (08:17)
[2017-06-14] MEDS ORDERED: Mineral Oil/Petrolatum/Phenylephrine/Shark Liver Oil Oint 57 GM Tube RECTAL PRN (20:25)
[2017-06-15] MEDS: Albuterol/Ipratropium 4 GM Inhalation Spray INH SCH ×4 (07:46→19:25)
[2017-06-15] MEDS: Allopurinol 100 MG Tab PO SCH (07:46)
[2017-06-15] MEDS: Omeprazole 20 MG Cap.CR PO SCH ×2 (07:47→17:59)
[2017-06-15] MEDS: Furosemide 20 MG Tab PO SCH ×2 (07:47→11:43)
[2017-06-15] MEDS: Isosorbide Mononitrate 60 MG Tab.ER PO SCH (07:47)
[2017-06-15] MEDS: Bisoprolol 5 MG Tab PO SCH (07:47)
[2017-06-15] MEDS: Multivitamin Tab PO SCH (07:48)
[2017-06-15] MEDS: Aspirin 81 MG Tab.Chew PO SCH (07:48)
[2017-06-15] MEDS: Gabapentin 300 MG Cap PO SCH ×3 (07:48→17:59)
[2017-06-15] MEDS: Arformoterol 15 MCG/2 ML Neb Soln INH SCH ×2 (07:49→19:25)
[2017-06-15] MEDS: Budesonide 0.5 MG/2 ML Neb Susp INH SCH ×2 (07:49→19:25)
[2017-06-15] MEDS: predniSONE 20 MG Tab PO SCH (07:49)
[2017-06-15] MEDS: Polyvinyl Alcohol 1.4% Ophth Soln 15 ML Bottle EYEBOTH SCH ×3 (07:49→17:59)
[2017-06-15] MEDS: Cholecalciferol (Vitamin D3) 1,000 Unit Tab PO SCH (07:49)
[2017-06-15] MEDS: Insulin Detemir 100 Units/ML 3 ML Pen SUBCUT SCH (07:50)
[2017-06-15] MEDS ORDERED: Insulin Aspart 100 Units/ML 3 ML Pen SUBCUT ONE (11:13)
[2017-06-15] MEDS ORDERED: Sodium Chloride 0.65% Nasal Spray 45 ML Bottle NAS PRN (14:12)
[2017-06-15] MEDS: Insulin Aspart 100 Units/ML 3 ML Pen SUBCUT SCH (18:00)
[2017-06-16] MEDS: Bisoprolol 5 MG Tab PO SCH (07:24)
[2017-06-16] MEDS: Omeprazole 20 MG Cap.CR PO SCH ×2 (07:26→17:49)
[2017-06-16] MEDS: Isosorbide Mononitrate 60 MG Tab.ER PO SCH (07:27)
[2017-06-16] MEDS: Allopurinol 100 MG Tab PO SCH (07:27)
[2017-06-16] MEDS: Furosemide 20 MG Tab PO SCH ×2 (07:29→11:38)
[2017-06-16] MEDS: Cholecalciferol (Vitamin D3) 1,000 Unit Tab PO SCH (07:29)
[2017-06-16] MEDS: Aspirin 81 MG Tab.Chew PO SCH (07:30)
[2017-06-16] MEDS: Gabapentin 300 MG Cap PO SCH ×3 (07:30→17:50)
[2017-06-16] MEDS: Multivitamin Tab PO SCH (07:30)
[2017-06-16] MEDS: predniSONE 20 MG Tab PO SCH (07:31)
[2017-06-16] MEDS: Insulin Detemir 100 Units/ML 3 ML Pen SUBCUT SCH (07:32)
[2017-06-16] MEDS: Albuterol/Ipratropium 4 GM Inhalation Spray INH SCH ×4 (07:37→19:44)
[2017-06-16] MEDS: Polyvinyl Alcohol 1.4% Ophth Soln 15 ML Bottle EYEBOTH SCH ×3 (07:38→17:49)
[2017-06-16] MEDS: Budesonide 0.5 MG/2 ML Neb Susp INH SCH ×2 (07:38→19:45)
[2017-06-16] MEDS: Arformoterol 15 MCG/2 ML Neb Soln INH SCH ×2 (07:38→19:45)
[2017-06-16] MEDS: Insulin Aspart 100 Units/ML 3 ML Pen SUBCUT SCH ×2 (11:46→17:46)
[2017-06-17] MEDS: Insulin Detemir 100 Units/ML 3 ML Pen SUBCUT SCH (07:14)
[2017-06-17] MEDS: Aspirin 81 MG Tab.Chew PO SCH (07:16)
[2017-06-17] MEDS: Arformoterol 15 MCG/2 ML Neb Soln INH SCH (07:16)
[2017-06-17] MEDS: Furosemide 20 MG Tab PO SCH ×2 (07:17→11:59)
[2017-06-17] MEDS: Polyvinyl Alcohol 1.4% Ophth Soln 15 ML Bottle EYEBOTH SCH ×2 (07:17→11:59)
[2017-06-17] MEDS: Albuterol/Ipratropium 4 GM Inhalation Spray INH SCH ×2 (07:19→11:58)
[2017-06-17] MEDS: predniSONE 20 MG Tab PO SCH (07:22)
[2017-06-17] MEDS: Allopurinol 100 MG Tab PO SCH (07:22)
[2017-06-17] MEDS: Gabapentin 300 MG Cap PO SCH ×2 (07:22→11:59)
[2017-06-17] MEDS: Omeprazole 20 MG Cap.CR PO SCH (07:22)
[2017-06-17] MEDS: Multivitamin Tab PO SCH (07:23)
[2017-06-17] MEDS: Cholecalciferol (Vitamin D3) 1,000 Unit Tab PO SCH (07:23)
[2017-06-17] MEDS: Budesonide 0.5 MG/2 ML Neb Susp INH SCH (07:23)
[2017-06-17] MEDS: Bisoprolol 5 MG Tab PO SCH (09:35)
[2017-06-17] MEDS: Isosorbide Mononitrate 60 MG Tab.ER PO SCH (11:12)
[2017-06-17] MEDS: Insulin Aspart 100 Units/ML 3 ML Pen SUBCUT SCH (12:00)
[2017-06-17 13:12] LABS: CHLORIDE,CL 96 mmol/L (98-107); SODIUM,NA 134 mmol/L (136-145)
--- NOTE | 2017-06-17 14:00 | PCM.PN ---
- General Info Date of Service: 06/17/17 Admission Dx/Problem (Free Text): Admission Diagnosis/Problem Admission Diagnosis/Problem COPD with acute lower respiratory infection Functional Status: Reports: Ambulating (to BR and in hallway about once a day) - Review of Systems General: Reports: No Symptoms (says he is fine and wants to go home!) HEENT: Reports: No Symptoms Pulmonary: Reports: No Symptoms Cardiovascular: Reports: No Symptoms Gastrointestinal: Reports: No Symptoms Genitourinary: Reports: No Symptoms Musculoskeletal: Reports: No Symptoms Skin: Reports: No Symptoms Neurological: Reports: No Symptoms Psychiatric: Reports: No Symptoms - Patient Data Vitals - Most Recent: Last Vital Signs Temp 98.6 F 06/17/17 07:35 Pulse 81 06/17/17 11:10 Resp 16 06/17/17 11:10 BP 97/46 L 06/17/17 11:10 Pulse Ox 94 L 06/17/17 11:10 Weight - Most Recent: 267 lb 4.791 oz I&O - Last 24 Hours: Intake & Output 06/16/17 06/17/17 06/17/17 22:59 06:59 14:59 Intake Total 200 1200 Balance 200 1200 Lab Results Last 24 Hours: Laboratory Results - last 24 hr 06/16/17 06/16/17 06/17/17 Range/Units 16:43 19:42 07:11 WBC (4.0-10.2) K/uL RBC (4.33-5.41) M/uL Hgb (13.1-16.8) g/dL Hct (39.0-49.0) % MCV (84.0-98.0) fL MCH (28.2-33.3) pg MCHC (31.7-36.0) g/dL RDW (11.2-14.1) % Plt Count (150-350) K/uL Neut % (Auto) (45.0-80.0) % Lymph % (Auto) (10.0-50.0) % [place] % (Auto) (2.0-14.0) % Eos % (Auto) (0.0-5.0) % Baso % (Auto) (0.0-2.0) % Neut # (Auto) (1.40-7.00) K/uL Lymph # (Auto) (0.50-3.50) K/uL [place] # (Auto) (0.00-1.00) K/uL Eos # (Auto) (0.00-0.50) K/uL Baso # (Auto) (0.00-0.20) K/uL Sodium (136-145) mmol/L Potassium (3.5-5.1) mmol/L Chloride (98-107) mmol/L Carbon Dioxide (21.0-32.0) mmol/L BUN (7-18) mg/dL Creatinine (0.51-1.17) mg/dL Est Cr Clr Drug Dosing Estimated GFR (MDRD) mL/min Glucose (74-106) mg/dL POC Glucose 298 H* 345 H* 126 H (65-110) mg/dl Calcium (8.5-10.1) mg/dL Total Bilirubin (0.2-1.0) mg/dL AST (15-37) U/L ALT (12-78) U/L Alkaline Phosphatase (46-116) IU/L C-Reactive Protein (<=0.9) mg/dL NT-Pro-B Natriuret Pep (0-125) pg/mL Total Protein (6.4-8.2) g/dL Albumin (3.4-5.0) g/dL 06/17/17 06/17/17 06/17/17 Range/Units 11:26 12:47 12:47 WBC 17.3 H (4.0-10.2) K/uL RBC 3.08 L (4.33-5.41) M/uL Hgb 9.1 L (13.1-16.8) g/dL Hct 29.8 L (39.0-49.0) % MCV 96.8 (84.0-98.0) fL MCH 29.5 (28.2-33.3) pg MCHC 30.5 L (31.7-36.0) g/dL RDW 18.7 H (11.2-14.1) % Plt Count 367 H (150-350) K/uL Neut % (Auto) 86.4 H (45.0-80.0) % Lymph % (Auto) 7.9 L (10.0-50.0) % [place] % (Auto) 5.4 (2.0-14.0) % Eos % (Auto) 0.1 (0.0-5.0) % Baso % (Auto) 0.2 (0.0-2.0) % Neut # (Auto) 14.95 H (1.40-7.00) K/uL Lymph # (Auto) 1.37 (0.50-3.50) K/uL [place] # (Auto) 0.93 (0.00-1.00) K/uL Eos # (Auto) 0.01 (0.00-0.50) K/uL Baso # (Auto) 0.03 (0.00-0.20) K/uL Sodium 134 L (136-145) mmol/L Potassium 4.8 (3.5-5.1) mmol/L Chloride 96 L (98-107) mmol/L Carbon Dioxide 26.6 (21.0-32.0) mmol/L BUN 35 H (7-18) mg/dL Creatinine 1.37 H (0.51-1.17) mg/dL Est Cr Clr Drug Dosing TNP Estimated GFR (MDRD) 50 mL/min Glucose 329 H* (74-106) mg/dL POC Glucose 264 H* (65-110) mg/dl Calcium 9.7 (8.5-10.1) mg/dL Total Bilirubin 0.4 (0.2-1.0) mg/dL AST 33 (15-37) U/L ALT 61 (12-78) U/L Alkaline Phosphatase 106 (46-116) IU/L C-Reactive Protein 4.5 H (<=0.9) mg/dL NT-Pro-B Natriuret Pep 149 H (0-125) pg/mL Total Protein 6.8 (6.4-8.2) g/dL Albumin 2.8 L (3.4-5.0) g/dL Med Orders - Current: Current Medications Albuterol (Proventil Neb Soln) 2.5 mg NEB Q4H PRN PRN Reason: Shortness of Breath Albuterol/Ipratropium (Combivent Respimat) 0 gm INH QIDRT [facility] Last Admin: 06/17/17 11:58 Dose: 1 inhalation Allopurinol (Zyloprim) 300 mg PO QAM [facility] Last Admin: 06/17/17 07:22 Dose: 300 mg Arformoterol Tartrate (Brovana) 15 mcg INH BIDRT [facility] Last Admin: 06/17/17 07:16 Dose: 15 mcg Artificial Tears (Liquitears 1.4% Ophth Soln) 0 ml EYEBOTH TID [facility] Last Admin: 06/17/17 11:59 Dose: 1 drop Aspirin (Aspirin) 81 mg PO DAILY [facility] Last Admin: 06/17/17 07:16 Dose: 81 mg Bisoprolol Fumarate (Zebeta) 10 mg PO DAILY [facility] Budesonide (Pulmicort) 0.5 mg INH BIDRT [facility] Last Admin: 06/17/17 07:23 Dose: 0.5 mg Calcium Carbonate/Glycine (Tums Extra Strength) 750 mg PO ASDIRECTED PRN PRN Reason: Heartburn Cholecalciferol (Vitamin D3) 1,000 units PO DAILY [facility] Last Admin: 06/17/17 07:23 Dose: 1,000 units Furosemide (Lasix) 20 mg PO DAILY@1200 [facility] Last Admin: 06/17/17 11:59 Dose: Not Given Furosemide (Lasix) 40 mg PO DAILY [facility] Last Admin: 06/17/17 07:17 Dose: 40 mg Gabapentin (Neurontin) 300 mg PO TID [facility] Last Admin: 06/17/17 11:59 Dose: 300 mg Insulin Aspart (Novolog) 4 unit SUBCUT BID@1200,1700 [facility] Last Admin: 06/17/17 12:00 Dose: 4 units Insulin Detemir (Levemir) 23 unit SUBCUT QAM [facility] Last Admin: 06/17/17 07:14 Dose: 23 units Isosorbide Mononitrate (Imdur) 60 mg PO DAILY [facility] Last Admin: 06/17/17 11:12 Dose: Not Given Multivitamins/Minerals/Vitamin C (Tab-A-Prisca) 1 tab PO DAILY [facility] Last Admin: 06/17/17 07:23 Dose: 1 tab Omeprazole (Omeprazole) 20 mg PO BID [facility] Last Admin: 06/17/17 07:22 Dose: 20 mg Phenyleph/Shark Oil/Min Oil/Petrol (Preparation H Oint) 0 gm RECTAL ASDIRECTED PRN PRN Reason: Hemorrhoids Last Admin: 06/14/17 23:07 Dose: 1 applic Prednisone (Prednisone) 20 mg PO DAILY [facility] Last Admin: 06/17/17 07:22 Dose: 20 mg Sodium Chloride ([place] Nasal [place]) 0 ml HERI Q2H PRN PRN Reason: Congestion Last Admin: 06/15/17 16:36 Dose: 1 spray Discontinued Medications Bisoprolol Fumarate (Zebeta) 15 mg PO DAILY [facility] Last Admin: 06/17/17 09:35 Dose: Not Given Insulin Aspart (Novolog) 2 unit SUBCUT ONETIME ONE Stop: 06/15/17 11:14 Last Admin: 06/15/17 11:45 Dose: 2 units - Exam Quality Assessment: Supplemental Oxygen (continuous, chronic) General: Alert, Oriented, Cooperative HEENT: Pupils Reactive Neck: Supple, Trachea Midline, No JVD Lungs: Decreased Breath Sounds Cardiovascular: Regular Rate, Regular Rhythm GI/Abdominal Exam: Normal Bowel Sounds, Soft, Non-Tender (Male) Exam: Deferred Back Exam: Normal Inspection Extremities: Pedal Edema Skin: Warm, Dry, Intact Neurological: No New Focal Deficit Psy/Mental Status: Alert, Normal Affect, Normal Mood - Problem List Review Problem List Initiated/Reviewed/Updated: Yes - My Orders Last 24 Hours: My Active Orders 06/17/17 13:49 Chest 2V [CR] Routine 06/18/17 08:00 Bisoprolol [Zebeta] 10 mg PO DAILY - Plan Plan:: 06/13/17 Dusty Seaman MD 76 year old gentleman advanced COPD, oxygen dependent, chronic hypoxia. He developed bilateral pneumonia, sepsis. He was hospitalized [facility] now returns to [facility] due to generalized weakness for PT-OT. 06-17-17 LIZETT StreeterC RN notified me this morning of hypotension, held AM Zebeta and Isosorbide. BP was actually a little lower at noon, and I heard no crackles in the lung bases so held noon dose of Lasix as well. Lung sounds markedly diminished. White count 17,300 with a left shift, CRP is up from admit although still only 4.5. Pro-BNP is only 149. Chest x-ray is ordered. Will not discharge to home today, discussed this with patient. Will consult Dr. Montano once I can see the CXR.
[2017-06-17 15:16] VITALS: BP 109/52
--- NOTE | 2017-06-17 16:33 | PCM.DCSUM1 ---
Discharge Summary - Hospital Course Brief History: Admitted to [facility] status for strengthening after acute hospital stay in [place] for pneumonia, COPD exacerbation and sepsis. PT-OT has cleared for return home with Home Care. - Discharge Data Discharge Date: 06/17/17 Discharge Disposition: Home, W Home Health Agency 06 Condition: Fair - Patient Summary/Data Consults: Consultations 06/13/17 16:36 Consult to Case Management [CONS] Routine OT Evaluation and Treatment [CONS] Routine PT Evaluation and Treatment [CONS] Routine 06/14/17 08:00 Consult to Speech Language Pathology [RETAIL ANALYST Evaluation and Treatment] [CONS] Routine 06/17/17 16:28 Consult to Home Care [Consult to Home Health] [CONS] Routine - Patient Instructions Diet: Diabetic Diet Activity: As Tolerated Driving: Do Not Drive Showering/Bathing: May Shower Other/Special Instructions: Follow up next week with Tr Newman PA-C, your regular provider. Call [facility] for appointment. - Discharge Plan Home Medications: Home Meds Arformoterol [Brovana] 2 ml INH BID 05/04/14 [History] Aspirin [Jaswinder Chewable Aspirin] 81 mg PO DAILY 05/04/14 [History] Bisoprolol Fumarate [Zebeta] 15 mg PO DAILY 05/04/14 [History] Budesonide [Pulmicort] 2 ml INH BID 05/04/14 [History] Calcium Carbonate [Tums Extra Strength] 750 mg PO ASDIRECTED PRN 05/04/14 [ History] Furosemide 40 mg PO DAILY 05/04/14 [History] Gabapentin [Neurontin] 300 mg PO TID 05/04/14 [History] Multivitamin [Multivitamins] 1 tab PO DAILY 05/04/14 [History] Omeprazole 20 mg PO BID 05/04/14 [History] Albuterol/Ipratropium [Combivent Respimat] 1 puff INH QID 06/29/16 [History] Carboxymethylcellulose Sodium [Refresh Tears 0.5%] 1 drop EYEBOTH TID 06/29/16 [ History] Furosemide 20 mg PO DAILY@1200 06/29/16 [History] Insulin Detemir [Levemir Flextouch] 23 units SUBCUT QAM 06/29/16 [History] Albuterol Sulfate 2.5 mg NEB Q4H PRN 10/19/16 [History] Isosorbide Mononitrate [Imdur] 60 mg PO DAILY 10/26/16 [History] Allopurinol [Zyloprim] 300 mg PO QAM 06/13/17 [History] Cholecalciferol (Vitamin D3) [Vitamin D3] 1,000 unit PO DAILY 06/13/17 [History] predniSONE [Prednisone] 20 mg PO DAILY 06/13/17 [History] - Discharge Summary/Plan Comment DC Time >30 min.: Yes (50 minutes) Discharge Summary/Plan Comment: Discharging to home with family. He lives with his , and two grown children will be with them for the weekend. Also referring to Home Care. He will follow up with his PCP Tr Newman PA-C next week. No changes made from his routine meds. - Patient Data Vitals - Most Recent: Last Vital Signs Temp 98.8 F 06/17/17 15:10 Pulse 82 06/17/17 15:10 Resp 16 06/17/17 15:10 BP 109/52 L 06/17/17 15:10 Pulse Ox 93 L 06/17/17 15:10 Weight - Most Recent: 267 lb 4.791 oz I&O - Last 24 hours: Intake & Output 06/17/17 06/17/17 06/17/17 06:59 14:59 22:59 Intake Total 2400 Balance 2400 Lab Results - Last 24 hrs: Laboratory Results - last 24 hr 06/16/17 06/16/17 06/17/17 Range/Units 16:43 19:42 07:11 WBC (4.0-10.2) K/uL RBC (4.33-5.41) M/uL Hgb (13.1-16.8) g/dL Hct (39.0-49.0) % MCV (84.0-98.0) fL MCH (28.2-33.3) pg MCHC (31.7-36.0) g/dL RDW (11.2-14.1) % Plt Count (150-350) K/uL Neut % (Auto) (45.0-80.0) % Lymph % (Auto) (10.0-50.0) % [place] % (Auto) (2.0-14.0) % Eos % (Auto) (0.0-5.0) % Baso % (Auto) (0.0-2.0) % Neut # (Auto) (1.40-7.00) K/uL Lymph # (Auto) (0.50-3.50) K/uL [place] # (Auto) (0.00-1.00) K/uL Eos # (Auto) (0.00-0.50) K/uL Baso # (Auto) (0.00-0.20) K/uL Sodium (136-145) mmol/L Potassium (3.5-5.1) mmol/L Chloride (98-107) mmol/L Carbon Dioxide (21.0-32.0) mmol/L BUN (7-18) mg/dL Creatinine (0.51-1.17) mg/dL Est Cr Clr Drug Dosing Estimated GFR (MDRD) mL/min Glucose (74-106) mg/dL POC Glucose 298 H* 345 H* 126 H (65-110) mg/dl Calcium (8.5-10.1) mg/dL Total Bilirubin (0.2-1.0) mg/dL AST (15-37) U/L ALT (12-78) U/L Alkaline Phosphatase (46-116) IU/L C-Reactive Protein (<=0.9) mg/dL NT-Pro-B Natriuret Pep (0-125) pg/mL Total Protein (6.4-8.2) g/dL Albumin (3.4-5.0) g/dL 06/17/17 06/17/17 06/17/17 Range/Units 11:26 12:47 12:47 WBC 17.3 H (4.0-10.2) K/uL RBC 3.08 L (4.33-5.41) M/uL Hgb 9.1 L (13.1-16.8) g/dL Hct 29.8 L (39.0-49.0) % MCV 96.8 (84.0-98.0) fL MCH 29.5 (28.2-33.3) pg MCHC 30.5 L (31.7-36.0) g/dL RDW 18.7 H (11.2-14.1) % Plt Count 367 H (150-350) K/uL Neut % (Auto) 86.4 H (45.0-80.0) % Lymph % (Auto) 7.9 L (10.0-50.0) % [place] % (Auto) 5.4 (2.0-14.0) % Eos % (Auto) 0.1 (0.0-5.0) % Baso % (Auto) 0.2 (0.0-2.0) % Neut # (Auto) 14.95 H (1.40-7.00) K/uL Lymph # (Auto) 1.37 (0.50-3.50) K/uL [place] # (Auto) 0.93 (0.00-1.00) K/uL Eos # (Auto) 0.01 (0.00-0.50) K/uL Baso # (Auto) 0.03 (0.00-0.20) K/uL Sodium 134 L (136-145) mmol/L Potassium 4.8 (3.5-5.1) mmol/L Chloride 96 L (98-107) mmol/L Carbon Dioxide 26.6 (21.0-32.0) mmol/L BUN 35 H (7-18) mg/dL Creatinine 1.37 H (0.51-1.17) mg/dL Est Cr Clr Drug Dosing TNP Estimated GFR (MDRD) 50 mL/min Glucose 329 H* (74-106) mg/dL POC Glucose 264 H* (65-110) mg/dl Calcium 9.7 (8.5-10.1) mg/dL Total Bilirubin 0.4 (0.2-1.0) mg/dL AST 33 (15-37) U/L ALT 61 (12-78) U/L Alkaline Phosphatase 106 (46-116) IU/L C-Reactive Protein 4.5 H (<=0.9) mg/dL NT-Pro-B Natriuret Pep 149 H (0-125) pg/mL Total Protein 6.8 (6.4-8.2) g/dL Albumin 2.8 L (3.4-5.0) g/dL Med Orders - Current: Current Medications Albuterol (Proventil Neb Soln) 2.5 mg NEB Q4H PRN PRN Reason: Shortness of Breath Albuterol/Ipratropium (Combivent Respimat) 0 gm INH QIDRT [facility] Last Admin: 06/17/17 11:58 Dose: 1 inhalation Allopurinol (Zyloprim) 300 mg PO QAM [facility] Last Admin: 06/17/17 07:22 Dose: 300 mg Arformoterol Tartrate (Brovana) 15 mcg INH BIDRT [facility] Last Admin: 06/17/17 07:16 Dose: 15 mcg Artificial Tears (Liquitears 1.4% Ophth Soln) 0 ml EYEBOTH TID [facility] Last Admin: 06/17/17 11:59 Dose: 1 drop Aspirin (Aspirin) 81 mg PO DAILY [facility] Last Admin: 06/17/17 07:16 Dose: 81 mg Bisoprolol Fumarate (Zebeta) 10 mg PO DAILY [facility] Budesonide (Pulmicort) 0.5 mg INH BIDRT [facility] Last Admin: 06/17/17 07:23 Dose: 0.5 mg Calcium Carbonate/Glycine (Tums Extra Strength) 750 mg PO ASDIRECTED PRN PRN Reason: Heartburn Cholecalciferol (Vitamin D3) 1,000 units PO DAILY [facility] Last Admin: 06/17/17 07:23 Dose: 1,000 units Furosemide (Lasix) 20 mg PO DAILY@1200 [facility] Last Admin: 06/17/17 11:59 Dose: Not Given Furosemide (Lasix) 40 mg PO DAILY [facility] Last Admin: 06/17/17 07:17 Dose: 40 mg Gabapentin (Neurontin) 300 mg PO TID [facility] Last Admin: 06/17/17 11:59 Dose: 300 mg Insulin Aspart (Novolog) 4 unit SUBCUT BID@1200,1700 [facility] Last Admin: 06/17/17 12:00 Dose: 4 units Insulin Detemir (Levemir) 23 unit SUBCUT [facility] Last Admin: 06/17/17 07:14 Dose: 23 units Isosorbide Mononitrate (Imdur) 60 mg PO DAILY [facility] Last Admin: 06/17/17 11:12 Dose: Not Given Multivitamins/Minerals/Vitamin C (Tab-A-Prisca) 1 tab PO DAILY [facility] Last Admin: 06/17/17 07:23 Dose: 1 tab Omeprazole (Omeprazole) 20 mg PO BID [facility] Last Admin: 06/17/17 07:22 Dose: 20 mg Phenyleph/Shark Oil/Min Oil/Petrol (Preparation H Oint) 0 gm RECTAL ASDIRECTED PRN PRN Reason: Hemorrhoids Last Admin: 06/14/17 23:07 Dose: 1 applic Prednisone (Prednisone) 20 mg PO DAILY [facility] Last Admin: 06/17/17 07:22 Dose: 20 mg Sodium Chloride ([place] Nasal [place]) 0 ml HERI Q2H PRN PRN Reason: Congestion Last Admin: 06/15/17 16:36 Dose: 1 spray Discontinued Medications Bisoprolol Fumarate (Zebeta) 15 mg PO DAILY [facility] Last Admin: 06/17/17 09:35 Dose: Not Given Insulin Aspart (Novolog) 2 unit SUBCUT ONETIME ONE Stop: 06/15/17 11:14 Last Admin: 06/15/17 11:45 Dose: 2 units *Q Meaningful Use (DIS) - VTE *Q VTE Criteria *Q: - Stroke *Q Stroke Criteria *Q: - AMI *Q AMI Criteria *Q:
[2017-06-18] MEDS ORDERED: Bisoprolol 5 MG Tab PO SCH (08:00)
== END 2017-06-17 17:30 | disposition home health service (06) | DRG 871 ==
LOC: LL.MS 15:45
PROVIDERS: ADMIT Family Medicine; ATTEND Family Medicine
DX: A41.9 Sepsis, unspecified organism (principal); J18.9 Pneumonia, unspecified organism; J44.1 Chronic obstructive pulmonary disease with (acute) exacerbation; I13.0 Hypertensive heart and chronic kidney disease with heart failure and stage 1 through stage 4 chronic kidney disease, or unspecified chronic kidney disease; I50.32 Chronic diastolic (congestive) heart failure; Z99.81 Dependence on supplemental oxygen; R53.1 Weakness; N18.9 Chronic kidney disease, unspecified; M10.9 Gout, unspecified; E11.22 Type 2 diabetes mellitus with diabetic chronic kidney disease; M19.90 Unspecified osteoarthritis, unspecified site; K21.9 Gastro-esophageal reflux disease without esophagitis; I51.9 Heart disease, unspecified; D63.1 Anemia in chronic kidney disease; I25.10 Atherosclerotic heart disease of native coronary artery without angina pectoris; G62.9 Polyneuropathy, unspecified; R06.09 Other forms of dyspnea; G47.33 Obstructive sleep apnea (adult) (pediatric); E78.5 Hyperlipidemia, unspecified; E66.9 Obesity, unspecified; E66.01 Morbid (severe) obesity due to excess calories; Z68.35 Body mass index [BMI] 35.0-35.9, adult; I95.9 Hypotension, unspecified; R13.10 Dysphagia, unspecified; E11.42 Type 2 diabetes mellitus with diabetic polyneuropathy
CPT/HCPCS: 36415; 71020; 80053; 82803; 82962; 83880; 84550; 85025; 86140; 92526-GN; 92610-GN; 94640; 97110-GO; 97110-GP; 97161-GP; 97165-GO; 97530-GO; 97530-GP; 97535-GO; A9270-GY; J1815-GY

== ENCOUNTER 2017-07-28 10:59 | Emergency (ER) | payer MEDICARE, BC ==
--- NOTE | 2017-07-28 12:29 | EDM.PDOC ---
ED HPI GENERAL MEDICAL PROBLEM - General Chief Complaint: General Stated Complaint: Aching legs Time Seen by Provider: 07/28/17 11:15 Source of Information: Reports: Patient History Limitations: Reports: No Limitations - History of Present Illness INITIAL COMMENTS - FREE TEXT/NARRATIVE: Patient brought to ER by today after noting that he just didn't feel quite right this morning after waking up. Patient admits that his baseline feeling of wellness is always poor, however today is worse. Specific complaints included feeling cold/chilled, worsening SOB, more difficulty ambulating/weaker, and more generalized achiness than usual, especially in the legs. Patient has long list of chronic problems, is O2 dependent at home on 2L, and has had previous episodes of septicemia. Patient denies specific fever. No new headache/HEENT complaints. Denies cold/cough symptoms, and says that he always has a runny nose. No GI changes reported. No problems with urinating. No neuro changes. No one else sick at home. 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: Other Medication(s), Oxygen Generalized Pain Score (Numeric/FACES): 7 - Related Data Allergies Allergy/AdvReac Type Severity Reaction Status Date / Time celecoxib Allergy Cannot Verified 06/13/17 18:47 Remember diltiazem Allergy Cannot Verified 06/13/17 18:47 Remember metoprolol Allergy Cannot Verified 06/13/17 18:47 Remember Hooncix-Szy-Jht Reductase Allergy Muscle Verified 06/13/17 18:47 Inhibitor Aches tiotropium bromide Allergy URINARY Verified 06/13/17 18:47 [From Spiriva with RETENTION HandiHaler] Home Meds: Home Meds Arformoterol [Brovana] 2 ml INH BID 05/04/14 [History] Aspirin [Jaswinder Chewable Aspirin] 81 mg PO DAILY 05/04/14 [History] Bisoprolol Fumarate [Zebeta] 15 mg PO DAILY 05/04/14 [History] Budesonide [Pulmicort] 2 ml INH BID 05/04/14 [History] Calcium Carbonate [Tums Extra Strength] 750 mg PO ASDIRECTED PRN 05/04/14 [ History] Furosemide 40 mg PO DAILY 05/04/14 [History] Gabapentin [Neurontin] 300 mg PO TID 05/04/14 [History] Multivitamin [Multivitamins] 1 tab PO DAILY 05/04/14 [History] Omeprazole 20 mg PO BID 05/04/14 [History] Albuterol/Ipratropium [Combivent Respimat] 1 puff INH QID 06/29/16 [History] Carboxymethylcellulose Sodium [Refresh Tears 0.5%] 1 drop EYEBOTH TID 06/29/16 [ History] Furosemide 20 mg PO DAILY@1200 06/29/16 [History] Insulin Detemir [Levemir Flextouch] 23 units SUBCUT QAM 06/29/16 [History] Albuterol Sulfate 2.5 mg NEB Q4H PRN 10/19/16 [History] Isosorbide Mononitrate [Imdur] 60 mg PO DAILY 10/26/16 [History] Allopurinol [Zyloprim] 300 mg PO QAM 06/13/17 [History] Cholecalciferol (Vitamin D3) [Vitamin D3] 1,000 unit PO DAILY 06/13/17 [History] predniSONE [Prednisone] 20 mg PO DAILY 06/13/17 [History] Past Medical History HEENT History: Reports: Cataract, Hard of Hearing, Impaired Vision, Macular Degeneration, Other (See Below) Other HEENT History: Glasses, macular degeneration and diabetic retinopathy, 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 and chronic left- sided tinnitus secondary to Mnire's disease, patient has not used his hearing aides secondary to ineffectiveness Cardiovascular History: Reports: Aneurysm, Arrhythmia, CAD, Cardiomyopathy, Heart Failure, Heart Murmur, High Cholesterol, Hypertension, PVD, Other (See Below) Other Cardiovascular History: PVCs, bigeminy, complete right bundle branch block , PACs, cardiomegaly with diastolic dysfunction by echocardiogram, recurrent CHF , tricuspid valve insufficiency, infrarenal abdominal aortic aneurysm initially diagnosed in 2006, chronic lymphedema of the lower extremities Respiratory History: Reports: Bronchitis, Recurrent, COPD, Pneumonia, Recurrent , Pulmonary Fibrosis, Sleep Apnea, Other (See Below) Other Respiratory History: 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 pylori , umbilical hernia, benign hepatic cysts by CT scan on 05/26/98 Genitourinary History: Reports: Acute Renal Failure, BPH, Chronic Renal Insuffiency, Diabetic Nephropathy, Prostate Disorder, Renal Disease, Other (See Below) Other Genitourinary History: Acute renal failure with secondary hypotension secondary to NSAIDs use on 10/01/14, BPH with history of PSA elevation, end- stage renal disease-stage III, erectile dysfunction Musculoskeletal History: Reports: Arthritis, Back Pain, Chronic, Fracture, Gout , Neck Pain, Chronic, Osteoarthritis, Osteoporosis, Other (See Below) Other Musculoskeletal History: Spinal stenosis at L4-5 with disc prolapse, positive NENO however no known SLE, proximal left fibular fracture in September 2014 Neurological History: Reports: Neuropathy, Diabetic, Neuropathy, Peripheral Psychiatric History: Reports: None Endocrine/Metabolic History: Reports: Diabetes, Type II, IDDM, Osteoporosis Hematologic History: Reports: None 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/04 Dermatologic History: Reports: Venous Stasis Dermatitis - Infectious Disease History Infectious Disease History: Reports: Chicken Pox, Helicobacter Pylori, Mumps, Shingles - Past Surgical History Head Surgeries/Procedures: Reports: None HEENT Surgical History: Reports: Cataract Surgery, Laser Surgery, Oral Surgery, Tonsillectomy GI Surgical History: Reports: Colonoscopy, EGD Male Surgical History: Reports: Prostatectomy, TURP-Transurethral Resection of Prostate Neurological Surgical History: Reports: Lumbar Spine, Other (See Below) Dermatological Surgical History: Reports: Skin Biopsy - Past Imaging History Past Imaging History: Reports: Cardiac Echo, Carotid US, CAT Scan, DEXA Scan, Holter Monitor, MRI, PFT, Sleep Study, Stress Testing, Ultrasound, Venous Doppler, Other (See Below) Social & Family History - Family History HEENT: Reports: None Cardiac: Reports: CAD, Hypertension, [place], Other (See Below) Other Cardiac Family History: Maternal uncle with fatal [place] at age 42, another maternal uncle with fatal [place] at age 48, mother with hypertension, patient denies history of coronary artery disease in sister despite [place] records Respiratory: Reports: COPD, Sleep Apnea, Other (See Below) Other Respiratory Family Hisory: Brother with COPD and sleep apnea with history of tobacco use : Reports: None OBGYN: Reports: None Musculoskeletal: Reports: Arthritis, Osteoarthritis, Other (See Below) Other Musculoskeletal Family History: Brother with osteoarthritis Neurological: Reports: Cerebral Aneurysms, CVA, Neuropathy, Peripheral, Other ( See Below) Other Neurological Family History: Sister with fatal cerebral aneurysm at age 42 , maternal uncle with fatal hemorrhagic CVA at age 65 , patient denies CVA in brother despite [place] records, brother with peripheral neuropathy Psychiatric: Reports: None Endocrine/Metabolic: Reports: None Hematologic: Reports: None Immunologic: Reports: None Oncologic: Reports: Breast, Other (See Below) Other Oncologic Family History: Mother with unknown type of fatal cancer at age 65, sister with breast cancer in her 60s - Tobacco Use Smoking Status *Q: Never Smoker Years of Tobacco use: 51 Packs/Tins Daily: 2 Used Tobacco, but Quit: Yes Month Tobacco Last Used: 1-1/2 and 3 packs of cigarettes per day between ages 16 and 67 Second Hand Smoke Exposure: No - Caffeine Use Caffeine Use: Reports: Coffee Caffeine Use Comment: 3-4 cups of coffee per day, 1 soda per week - Alcohol Use Days Per Week of Alcohol Use: 2 (No previous DWIs, problems with alcohol abuse, etc.) Number of Drinks Per Day: 2 (Usually whiskey) Total Drinks Per Week: 4 - Recreational Drug Use Recreational Drug Use: No Drug Use in Last 12 Months: No - Living Situation & Occupation Living situation: Reports: Occupation: Retired ED ROS GENERAL - Review of Systems Review Of Systems: See Below Constitutional: Reports: Chills, Weakness. Denies: Fever, Malaise, Night Sweats , Diaphoresis, Decreased Appetite, Weight Loss, Weight Gain HEENT: Reports: Rhinitis (chronic, worse today). Denies: Sinus Problem, Throat Pain, Throat Swelling, Vertigo, Vision Change Respiratory: Reports: Shortness of Breath. Denies: Wheezing, Pleuritic Chest Pain, Cough (no new cough), Sputum, Hemoptysis Cardiovascular: Reports: Dyspnea on Exertion, Edema (chronic). Denies: Chest Pain, Lightheadedness, Palpitations, Syncope GI/Abdominal: Reports: No Symptoms : Reports: No Symptoms Musculoskeletal: Reports: Other (generalized muscle aches, worse in both legs) Skin: Reports: No Symptoms (no acute changes) Neurological: Reports: No Symptoms Psychiatric: Reports: No Symptoms Hematologic/Lymphatic: Denies: Swollen Glands ED EXAM, GENERAL - Physical Exam Exam: See Below Exam Limited By: No Limitations General Appearance: Alert, WD/WN, No Apparent Distress, Obese Eye Exam: Bilateral Eye: EOMI, PERRL Ears: Normal External Exam, Normal Canal, Hearing Grossly Normal, Normal TMs Nose: Normal Inspection Throat/Mouth: Normal Inspection, Normal Lips, Normal Voice, No Airway Compromise Head: Atraumatic, Normocephalic Neck: Normal Inspection, Supple, Non-Tender, Full Range of Motion Respiratory/Chest: No Respiratory Distress, Decreased Breath Sounds (throughout) , Other (Patient has accentuated breathing effort, normal for him with his COPD , faint crackes at bases, minimal rhonchi). No: Wheezing, Retractions Cardiovascular: No Murmur, Tachycardia Peripheral Pulses: 2+: Radial (L), Radial (R) GI/Abdominal: Normal Bowel Sounds, Soft, Non-Tender (Male) Exam: Deferred Rectal (Males) Exam: Deferred Back Exam: Normal Inspection. No: CVA Tenderness (L), CVA Tenderness (R), Muscle Spasm, Paraspinal Tenderness, Vertebral Tenderness Extremities: Non-Tender, Normal Capillary Refill, Other (2+ edema lower legs, normal per patient). No: Gumaro's Sign, Increased Warmth Neurological: Alert, Oriented, Normal Cognition, No Motor/Sensory Deficits Psychiatric: Normal Affect, Normal Mood Skin Exam: Warm, Dry, Intact EKG INTERPRETATION EKG Date: 07/28/17 Time: 15:08 Rhythm: NSR Rate (Beats/Min): 82 [place]: Normal P-Wave: Present QRS: Other (bifascicular block) ST-T: Normal QT: Normal Comparison: No Change Course - Vital Signs Last Recorded V/S: Last Vital Signs Temp 36.6 C 07/28/17 15:20 Pulse 91 07/28/17 15:35 Resp 20 07/28/17 15:35 BP 95/50 L 07/28/17 15:35 Pulse Ox 91 L 07/28/17 15:35 - Orders/Labs/Meds Orders: Active Orders 24 hr Category Date Time Status EKG Documentation Completion [RC] ASDIRECTED Care 07/28/17 15:05 Active RT Aerosol Therapy [RC] ASDIRECTED Care 07/28/17 14:50 Ordered Chest 2V [CR] Stat Exams 07/28/17 11:32 Taken CULTURE BLOOD [BC] Stat Lab 07/28/17 11:50 Received Saline Lock Insert [OM.PC] Stat Oth 07/28/17 13:14 Ordered Labs: Laboratory Tests 07/28/17 07/28/17 07/28/17 Range/Units 11:05 11:50 11:50 WBC 30.5 H (4.0-10.2) K/uL RBC 3.28 L (4.33-5.41) M/uL Hgb 9.7 L (13.1-16.8) g/dL Hct 31.8 L (39.0-49.0) % MCV 97.0 (84.0-98.0) fL MCH 29.6 (28.2-33.3) pg MCHC 30.5 L (31.7-36.0) g/dL RDW 19.1 H (11.2-14.1) % Plt Count 239 D (150-350) K/uL Neut % (Auto) 85.6 H (45.0-80.0) % Lymph % (Auto) 7.4 L (10.0-50.0) % [place] % (Auto) 6.5 (2.0-14.0) % Eos % (Auto) 0.4 (0.0-5.0) % Baso % (Auto) 0.1 (0.0-2.0) % Neut # (Auto) 26.14 H (1.40-7.00) K/uL Lymph # (Auto) 2.26 (0.50-3.50) K/uL [place] # (Auto) 1.98 H (0.00-1.00) K/uL Eos # (Auto) 0.11 (0.00-0.50) K/uL Baso # (Auto) 0.04 (0.00-0.20) K/uL Sodium (136-145) mmol/L Potassium (3.5-5.1) mmol/L Chloride (98-107) mmol/L Carbon Dioxide (21.0-32.0) mmol/L BUN (7-18) mg/dL Creatinine (0.51-1.17) mg/dL Est Cr Clr Drug Dosing mL/min Estimated GFR (MDRD) mL/min Glucose (74-106) mg/dL Lactic Acid 4.9 H (0.4-2.0) mmol/L Calcium (8.5-10.1) mg/dL Total Bilirubin (0.2-1.0) mg/dL AST (15-37) U/L ALT (12-78) U/L Alkaline Phosphatase (46-116) IU/L Total Protein (6.4-8.2) g/dL Albumin (3.4-5.0) g/dL Specimen Type Urinvoid Urine Color Yellow Urine Appearance Clear Urine pH 5.5 (5.0-9.0) Ur Specific [place] 1.015 (1.005-1.030) Urine Protein Negative (NEGATIVE) mg/dL Urine Glucose (UA) Negative (NEGATIVE) mg/dL Urine Ketones Negative (NEGATIVE) mg/dL Urine Occult Blood Negative (NEGATIVE) Urine Nitrite Negative (NEGATIVE) Urine Bilirubin Negative (NEGATIVE) Urine Urobilinogen 0.2 (0.2-1.0) E.U./dL Ur Leukocyte Esterase Trace H (NEGATIVE) Urine RBC 0-5 /HPF Urine WBC 5-10 H /HPF Ur Epithelial Cells Few /LPF Urine Bacteria Few (NONE TO FEW) /HPF 07/28/17 Range/Units 11:55 WBC (4.0-10.2) K/uL RBC (4.33-5.41) M/uL Hgb (13.1-16.8) g/dL Hct (39.0-49.0) % MCV (84.0-98.0) fL MCH (28.2-33.3) pg MCHC (31.7-36.0) g/dL RDW (11.2-14.1) % Plt Count (150-350) K/uL Neut % (Auto) (45.0-80.0) % Lymph % (Auto) (10.0-50.0) % [place] % (Auto) (2.0-14.0) % Eos % (Auto) (0.0-5.0) % Baso % (Auto) (0.0-2.0) % Neut # (Auto) (1.40-7.00) K/uL Lymph # (Auto) (0.50-3.50) K/uL [place] # (Auto) (0.00-1.00) K/uL Eos # (Auto) (0.00-0.50) K/uL Baso # (Auto) (0.00-0.20) K/uL Sodium 137 (136-145) mmol/L Potassium 4.4 (3.5-5.1) mmol/L Chloride 96 L (98-107) mmol/L Carbon Dioxide 30.3 (21.0-32.0) mmol/L BUN 30 H (7-18) mg/dL Creatinine 1.41 H (0.51-1.17) mg/dL Est Cr Clr Drug Dosing 47.39 mL/min Estimated GFR (MDRD) 49 mL/min Glucose 213 H (74-106) mg/dL Lactic Acid (0.4-2.0) mmol/L Calcium 9.4 (8.5-10.1) mg/dL Total Bilirubin 0.5 (0.2-1.0) mg/dL AST 30 (15-37) U/L ALT 47 (12-78) U/L Alkaline Phosphatase 67 (46-116) IU/L Total Protein 6.5 (6.4-8.2) g/dL Albumin 3.0 L (3.4-5.0) g/dL Specimen Type Urine Color Urine Appearance Urine pH (5.0-9.0) Ur Specific [place] (1.005-1.030) Urine Protein (NEGATIVE) mg/dL Urine Glucose (UA) (NEGATIVE) mg/dL Urine Ketones (NEGATIVE) mg/dL Urine Occult Blood (NEGATIVE) Urine Nitrite (NEGATIVE) Urine Bilirubin (NEGATIVE) Urine Urobilinogen (0.2-1.0) E.U./dL Ur Leukocyte Esterase (NEGATIVE) Urine RBC /HPF Urine WBC /HPF Ur Epithelial Cells /LPF Urine Bacteria (NONE TO FEW) /HPF Meds: Medications Discontinued Medications Generic Name Dose Route Start Last Admin Trade Name Freq PRN Reason Stop Dose Admin Albuterol/Ipratropium 3 ml 07/28/17 14:50 07/28/17 14:50 Duoneb 3.0-0.5 Mg/3 Ml NEB 07/28/17 14:51 3 ml ONETIME ONE Administration Cefotaxime Sodium 2 gm 07/28/17 13:34 Claforan IVPUSH 07/28/17 13:35 ONETIME ONE Cefotaxime Sodium 2 gm 07/28/17 13:45 07/28/17 14:03 Claforan IVPUSH 07/28/17 13:46 2 gm ONETIME ONE Administration Vancomycin HCl 1.75 gm/ Sodium 500 mls @ 185 mls/hr 07/28/17 14:00 07/28/17 14:11 Chloride IV 07/28/17 16:42 185 mls/hr ONETIME ONE Administration Lactated Ringer's 1,000 mls @ 999 mls/hr 07/28/17 14:43 07/28/17 14:48 Ringers, Lactated IV 07/28/17 15:43 999 mls/hr .BOLUS ONE Administration Sodium Chloride 10 ml 07/28/17 13:13 07/28/17 14:10 Saline Flush FLUSH 10 ml ASDIRECTED PRN Administration Keep Vein Open Vancomycin HCl 1,837.05 mg 07/28/17 13:36 Vancomycin 15 mg/kg (1837.05 mg) 07/28/17 13:37 IV ONETIME ONE - Radiology Interpretation Free Text/Narrative:: Chest xray did not show any obvious acute change. Compared to several recent films. Continues to have changes due to pulmonary fibrosis, COPD, ASHD, cardiomegaly. Not possible to exclude patchy bronchopneumonia. - Re-Assessments/Exams Free Text/Narrative Re-Assessment/Exam: 07/28/17 13:57 Elevated WBC at 30, elevated lactic acid. Hemoglobin/Hct Blood culture ordered. Blood pressure noted to be trending downward. Patient himself did not complain of feeling any worse. Given his history and observed changes, there was suspicion of developing sepsis. No obvious focus identified however with history/exam. Normal UA also. Call placed to 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 Agreed that sepsis was a concern. It was decided to give patient loading doses of Vanco as well as Claforan. Bolus of LR ordered. accepted the patient in transfer. BP improved with bolus. There was some delay in transferring patient due to EMS issues and finding an available crew. Vital signs remained stable. Patient transferred to [facility] for further care and evaluation. Departure - Departure Time of Disposition: 15:30 Disposition: DC/Tfer to Acute Hospital 02 Condition: Good Clinical Impression: Sepsis Qualifiers: Sepsis type: sepsis due to unspecified organism Qualified Code(s): A41.9 - Sepsis, unspecified organism - Discharge Information Referrals: Tr Newman PA [Primary Care Provider] - Forms: ED Department Discharge - My Orders Last 24 Hours: My Active Orders 07/28/17 11:32 Chest 2V [CR] Stat 07/28/17 11:50 CULTURE BLOOD [BC] Stat 07/28/17 13:14 Saline Lock Insert [OM.PC] Stat 07/28/17 14:50 RT Aerosol Therapy [RC] ASDIRECTED 07/28/17 15:05 EKG Documentation Completion [RC] ASDIRECTED - Assessment/Plan Last 24 Hours: My Active Orders 07/28/17 11:32 Chest 2V [CR] Stat 07/28/17 11:50 CULTURE BLOOD [BC] Stat 07/28/17 13:14 Saline Lock Insert [OM.PC] Stat 07/28/17 14:50 RT Aerosol Therapy [RC] ASDIRECTED 07/28/17 15:05 EKG Documentation Completion [RC] ASDIRECTED
[2017-07-28] MEDS ORDERED: Vancomycin 500 MG SDV IV ONE (13:36)
[2017-07-28] MEDS ORDERED: Vancomycin 1.75 GM in Sodium Chloride 0.9% 500 ML IV ONE (14:00)
[2017-07-28] MEDS: Sodium Chloride 0.9% 10 ML Syringe FLUSH PRN ×2 (14:05→14:10)
[2017-07-28] MEDS ORDERED: Lactated Ringers 1,000 ML IV ONE (14:43)
[2017-07-28] MEDS ORDERED: Albuterol/Ipratropium 3.0-0.5 MG/3 ML Neb Soln NEB ONE (14:50)
[2017-07-28 15:43] VITALS: BP 95/50
== END 2017-07-28 15:37 ==
LOC: LL.ED 10:59
DX: A41.9 Sepsis, unspecified organism (principal); I13.0 Hypertensive heart and chronic kidney disease with heart failure and stage 1 through stage 4 chronic kidney disease, or unspecified chronic kidney disease; I50.9 Heart failure, unspecified; N18.3 Chronic kidney disease, stage 3 (moderate); E11.22 Type 2 diabetes mellitus with diabetic chronic kidney disease; E11.40 Type 2 diabetes mellitus with diabetic neuropathy, unspecified; I25.10 Atherosclerotic heart disease of native coronary artery without angina pectoris; Z88.8 Allergy status to other drugs, medicaments and biological substances; Z79.82 Long term (current) use of aspirin; Z79.4 Long term (current) use of insulin; Z87.891 Personal history of nicotine dependence; Z79.899 Other long term (current) drug therapy
CPT/HCPCS: 36415; 71046; 80053; 81001; 83605; 85025; 87040; 87804; 93005; 94640; 96360; 96365; 96375; 99291; J0698; J3370; J7040; J7050; J7120; 99285

== ENCOUNTER 2017-12-28 08:03 | Day surgery (SDC) | payer MEDICARE, BC ==
--- NOTE | 2017-12-28 08:58 | PCM.HP ---
H&P History of Present Illness - General Date of Service: 12/28/17 Admit Problem/Dx: Admission Diagnosis/Problem Admission Diagnosis/Problem Retention of urine - History of Present Illness Initial Comments - Free Text/Narative: Chief Complaint: lower urinary tract symptoms; Questionable anatomy Onset of Symptoms: Reports: Other (longstanding, for years) Duration of Symptoms: Reports: Getting Worse - Related Data Allergies/Adverse Reactions: Allergies Allergy/AdvReac Type Severity Reaction Status Date / Time celecoxib Allergy Cannot Verified 10/19/17 16:47 Remember diltiazem Allergy Cannot Verified 10/19/17 16:47 Remember metoprolol Allergy Cannot Verified 10/19/17 16:47 Remember [id number] Reductase Allergy Muscle Verified 10/19/17 16:47 Inhibitor Aches tiotropium bromide Allergy URINARY Verified 10/19/17 16:47 [From [facility] with RETENTION HandiHaler] Home Medications: Home Meds Arformoterol [Brovana] 2 ml INH BID 05/04/14 [History] Aspirin [Jaswinder Chewable Aspirin] 81 mg PO DAILY 05/04/14 [History] Budesonide [Pulmicort] 2 ml INH BID 05/04/14 [History] Calcium Carbonate [Tums Extra Strength] 750 mg PO Q4H PRN 05/04/14 [History] Furosemide 40 mg PO BID 05/04/14 [History] Gabapentin [Neurontin] 300 mg PO TID 05/04/14 [History] Multivitamin [Multivitamins] 1 tab PO DAILY 05/04/14 [History] Omeprazole 20 mg PO BID 05/04/14 [History] Albuterol/Ipratropium [Combivent Respimat] 1 puff INH QID 06/29/16 [History] Carboxymethylcellulose Sodium [Refresh Tears 0.5%] 1 drop EYEBOTH TID 06/29/16 [ History] Insulin Detemir [Levemir Flextouch] 30 units SUBCUT QAM 06/29/16 [History] Albuterol Sulfate 2.5 mg NEB Q4H PRN 10/19/16 [History] Isosorbide Mononitrate [Imdur] 60 mg PO DAILY 10/26/16 [History] Allopurinol [Zyloprim] 300 mg PO QAM 06/13/17 [History] Cholecalciferol (Vitamin D3) [Vitamin D3] 2,000 unit PO DAILY 06/13/17 [History] predniSONE [Prednisone] 20 mg PO DAILY 06/13/17 [History] Acetaminophen 1,000 mg PO Q6HR 10/19/17 [History] Carvedilol 6.25 mg PO BID 10/19/17 [History] Hydrocortisone [Preparation H] 1 applic RECTAL ASDIRECTED 10/19/17 [History] Insulin Aspart [NovoLOG] 4 unit SUBCUT QAM 10/19/17 [History] Insulin Aspart [NovoLOG] 10 units SUBCUT QPM 10/19/17 [History] Losartan [Cozaar] 25 mg PO BEDTIME 10/19/17 [History] Tamsulosin [Flomax] 0.8 mg PO DAILY 10/19/17 [History] hydrOXYzine Pamoate [Hydroxyzine Pamoate] 25 mg PO TID PRN 10/19/17 [History] Docusate Sodium [Colace] 100 mg PO TID PRN 12/28/17 [History] Past Medical History HEENT History: Reports: Cataract, Hard of Hearing, Impaired Vision, Macular Degeneration, Other (See Below) Other HEENT History: Glasses, macular degeneration and diabetic retinopathy, 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 and chronic left- sided tinnitus secondary to Mnire's disease, patient has not used his hearing aides secondary to ineffectiveness Cardiovascular History: Reports: Aneurysm, Arrhythmia, CAD, Cardiomyopathy, Heart Failure, Heart Murmur, High Cholesterol, Hypertension, PVD, Other (See Below) Other Cardiovascular History: PVCs, bigeminy, complete right bundle branch block , PACs, cardiomegaly with diastolic dysfunction by echocardiogram, recurrent CHF , tricuspid valve insufficiency, infrarenal abdominal aortic aneurysm initially diagnosed in 2006, chronic lymphedema of the lower extremities Respiratory History: Reports: Bronchitis, Recurrent, COPD, Pneumonia, Recurrent , Pulmonary Fibrosis, Sleep Apnea, Other (See Below) Other Respiratory History: 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 pylori , umbilical hernia, benign hepatic cysts by CT scan on 05/26/98 Genitourinary History: Reports: Acute Renal Failure, BPH, Chronic Renal Insuffiency, Diabetic Nephropathy, Prostate Disorder, Renal Disease, Other (See Below) Other Genitourinary History: Acute renal failure with secondary hypotension secondary to NSAIDs use on 10/01/14, BPH with history of PSA elevation, end- stage renal disease-stage III, erectile dysfunction Musculoskeletal History: Reports: Arthritis, Back Pain, Chronic, Fracture, Gout , Neck Pain, Chronic, Osteoarthritis, Osteoporosis, Other (See Below) Other Musculoskeletal History: Spinal stenosis at L4-5 with disc prolapse, positive NENO however no known SLE, proximal left fibular fracture in September 2014 Neurological History: Reports: Neuropathy, Diabetic, Neuropathy, Peripheral Psychiatric History: Reports: None Endocrine/Metabolic History: Reports: Diabetes, Type II, IDDM, Osteoporosis Hematologic History: Reports: None 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/04 Dermatologic History: Reports: Venous Stasis Dermatitis - Infectious Disease History Infectious Disease History: Reports: Chicken Pox, Helicobacter Pylori, Mumps, Shingles - Past Surgical History Head Surgeries/Procedures: Reports: None HEENT Surgical History: Reports: Cataract Surgery, Laser Surgery, Oral Surgery, Tonsillectomy Other HEENT Surgeries/Procedures: Right cataract surgery on 05/23/03, left cataract surgery on 06/12/04, tonsillectomy at age 9, left eye YAG treatment, complete teeth extraction Cardiovascular Surgical History: Reports: None Respiratory Surgical History: Reports: None GI Surgical History: Reports: Colonoscopy, EGD Other GI Surgeries/Procedures: Last Colonoscopy and EGD on 09/25/09, small bowel series on 10/02/09 Male Surgical History: Reports: Prostatectomy, TURP-Transurethral Resection of Prostate Other Male Surgeries/Procedures: Suprapubic partial prostatectomy in September 2004 with no evidence of prostate cancer despite previous PSA elevation Endocrine Surgical History: Reports: None Neurological Surgical History: Reports: Lumbar Spine, Other (See Below) Other Neurological Surgeries/Procedures: Unknown type of back surgeries x2 in the lumbar region Musculoskeletal Surgical History: Reports: None Oncologic Surgical History: Reports: Other (See Below) Other Oncologic Surgeries/Procedures: Mohs procedure as above Dermatological Surgical History: Reports: Skin Biopsy - Past Imaging History Past Imaging History: Reports: Cardiac Echo, Carotid US, CAT Scan, DEXA Scan, Holter Monitor, MRI, PFT, Sleep Study, Stress Testing, Ultrasound, Venous Doppler, Other (See Below) Social & Family History - Family History HEENT: Reports: None Cardiac: Reports: CAD, Hypertension, AK, Other (See Below) Other Cardiac Family History: Maternal uncle with fatal AK at age 42, another maternal uncle with fatal AK at age 48, mother with hypertension, patient denies history of coronary artery disease in sister despite [place] records Respiratory: Reports: COPD, Sleep Apnea, Other (See Below) Other Respiratory Family Hisory: Brother with COPD and sleep apnea with history of tobacco use : Reports: None OBGYN: Reports: None Musculoskeletal: Reports: Arthritis, Osteoarthritis, Other (See Below) Other Musculoskeletal Family History: Brother with osteoarthritis Neurological: Reports: Cerebral Aneurysms, CVA, Neuropathy, Peripheral, Other ( See Below) Other Neurological Family History: Sister with fatal cerebral aneurysm at age 42 , maternal uncle with fatal hemorrhagic CVA at age 65 , patient denies CVA in brother despite [place] records, brother with peripheral neuropathy Psychiatric: Reports: None Endocrine/Metabolic: Reports: None Hematologic: Reports: None Immunologic: Reports: None Oncologic: Reports: Breast, Other (See Below) Other Oncologic Family History: Mother with unknown type of fatal cancer at age 65, sister with breast cancer in her 60s - Tobacco Use Smoking Status *Q: Former Smoker Years of Tobacco use: 35 Packs/Tins Daily: 1 Used Tobacco, but Quit: Yes Month/Year Tobacco Last Used: 2005 - Caffeine Use Caffeine Use: Reports: Coffee Caffeine Use Comment: 3-4 cups of coffee per day, 1 soda per week - Recreational Drug Use Recreational Drug Use: No - Living Situation & Occupation Living situation: Reports: Occupation: Retired H&P Review of Systems - Review of Systems: Review Of Systems: ROS reveals no pertinent complaints other than HPI. Exam - Exam Exam: See Below - Vital Signs Vital Signs: Last Vital Signs Temp 36.6 C 12/28/17 08:15 Pulse 83 06/13/18 08:15 Resp 20 12/28/17 08:15 BP 113/58 L 12/28/17 08:15 Pulse Ox 95 12/28/17 08:15 Weight: 129.274 kg - Exam General: Alert, Oriented, 4 Lungs: Clear to Auscultation, Normal Respiratory Effort Cardiovascular: Regular Rate, Regular Rhythm - Problem List (1) Slowing, urinary stream SNOMED Code(s): 63927602 ICD Code: R39.198 - OTHER DIFFICULTIES WITH MICTURITION Status: Acute Current Visit: Yes Problem List Initiated/Reviewed/Updated: Yes Orders Last 24hrs: Active Orders 24 hr Category Date Time Status Patient Status [ADT] Routine ADT 12/28/17 08:00 Active Blood Glucose Check, Bedside [RC] ONETIME Care 12/28/17 08:00 Active Verify Patient Consent Obtain [RC] ASDIRECTED Care 12/28/17 08:00 Active Assessment/Plan Comment:: Plan : Cystoscopy today; Patient in agreement with procedure.
[2017-12-28] MEDS ORDERED: Lidocaine 2% HCl 11 ML Jelly Filled Syringe TOP ONE (09:16)
[2017-12-28 10:24] VITALS: BP 137/66
--- NOTE | 2017-12-28 10:58 | OR ---
Date of Procedure: 12/28/2017 PREOPERATIVE DIAGNOSIS: Lower urinary tract symptoms. POSTOPERATIVE DIAGNOSIS: Normal examination, status post radical prostatectomy. COMPLICATION: None. SPECIMEN: None. DRAINS: None. BLOOD LOSS: None. ANESTHESIA: Topical. HISTORY: This is a gentleman who has lower urinary tract symptoms with a slow intermittent stream and he needs to push to void. He does have a history of prostate surgery in the past, but he cannot delineate what was done. WHAT WAS DONE: The patient was prepped and draped in usual sterile fashion in the lithotomy position. Xylocaine gel was instilled retrograde per urethra. Cystoscope was inserted. The urethra was unremarkable. Prostate was surgically absent. The bladder neck was widely opened. The scope immediately enters into the bladder. I identified no mucosal lesions or any erythema. No stones. The bladder was emptied. The cystoscope was removed. He tolerated this without difficulty. He has no obstruction. 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 The alternative would be to use a tube, and we are not going to do that as long as he is voiding. I need not see him back unless he has complications. SYLVIA Kessler MD /[id number]
== END 2017-12-28 10:10 | disposition home or self-care (01) ==
LOC: LL.SDS 08:03
PROVIDERS: ATTEND Urology
DX: R33.9 Retention of urine, unspecified (principal); Z90.79 Acquired absence of other genital organ(s); Z88.6 Allergy status to analgesic agent; Z88.8 Allergy status to other drugs, medicaments and biological substances; Z79.4 Long term (current) use of insulin; Z79.52 Long term (current) use of systemic steroids; Z79.82 Long term (current) use of aspirin; Z79.899 Other long term (current) drug therapy; E11.319 Type 2 diabetes mellitus with unspecified diabetic retinopathy without macular edema; E78.00 Pure hypercholesterolemia, unspecified; I25.10 Atherosclerotic heart disease of native coronary artery without angina pectoris; I45.10 Unspecified right bundle-branch block; J44.9 Chronic obstructive pulmonary disease, unspecified; J84.10 Pulmonary fibrosis, unspecified; G47.30 Sleep apnea, unspecified; Z99.89 Dependence on other enabling machines and devices; I13.0 Hypertensive heart and chronic kidney disease with heart failure and stage 1 through stage 4 chronic kidney disease, or unspecified chronic kidney disease; E11.22 Type 2 diabetes mellitus with diabetic chronic kidney disease; I50.9 Heart failure, unspecified; N18.3 Chronic kidney disease, stage 3 (moderate); N17.9 Acute kidney failure, unspecified; M19.90 Unspecified osteoarthritis, unspecified site; Z87.891 Personal history of nicotine dependence
CPT/HCPCS: 52000; 82962; A9270

== ENCOUNTER 2018-01-28 11:58 | Inpatient (IN) | payer MEDICARE, BC ==
--- NOTE | 2018-01-28 12:38 | EDM.PDOC ---
ED HPI GENERAL MEDICAL PROBLEM - General Chief Complaint: General Stated Complaint: Generalized weakness Time Seen by Provider: 01/28/18 12:00 Source of Information: Reports: Patient, Family History Limitations: Reports: No Limitations, Other (sob) - History of Present Illness INITIAL COMMENTS - FREE TEXT/NARRATIVE: Patient is a 77-year-old who is seen with generalized aches and pains throughout his body started for the last couple days was seen by the chiropractor for neck pain yesterday which did not help in the past he's had good relief with progressive shortness of breath for a while also patient fell off his scooter on 17 January Duration: Day(s): (3 days), Getting Worse Location: Reports: Generalized Quality: Reports: Ache, Pressure (Steady) Severity: Moderate Improves with: Reports: Medication Worsens with: Reports: Breathing, Immobilization Context: Reports: Other Associated Symptoms: Reports: No Other Symptoms Generalized Pain Score (Numeric/FACES): 9 - Related Data Allergies Allergy/AdvReac Type Severity Reaction Status Date / Time celecoxib Allergy Cannot Verified 01/28/18 12:08 Remember diltiazem Allergy Cannot Verified 01/28/18 12:08 Remember metoprolol Allergy Cannot Verified 01/28/18 12:08 Remember Kjicfmj-[id number]-Pps Reductase Allergy Muscle Verified 01/28/18 12:08 Inhibitor Aches tiotropium bromide Allergy URINARY Verified 01/28/18 12:08 [From [facility] with RETENTION HandiHaler] Home Meds: Home Meds Arformoterol [Brovana] 2 ml INH BID 05/04/14 [History] Aspirin [Jaswinder Chewable Aspirin] 81 mg PO DAILY 05/04/14 [History] Budesonide [Pulmicort] 2 ml INH BID 05/04/14 [History] Calcium Carbonate [Tums Extra Strength] 750 mg PO QID PRN 05/04/14 [History] Furosemide 40 mg PO BID 05/04/14 [History] Gabapentin [Neurontin] 300 mg PO TID 05/04/14 [History] Multivitamin [Multivitamins] 1 tab PO DAILY 05/04/14 [History] Omeprazole 20 mg PO BID 05/04/14 [History] Albuterol/Ipratropium [Combivent Respimat] 1 puff INH QID 06/29/16 [History] Carboxymethylcellulose Sodium [Refresh Tears 0.5%] 1 drop EYEBOTH QID 06/29/16 [ History] Insulin Detemir [Levemir Flextouch] 30 units SUBCUT QAM 06/29/16 [History] Albuterol Sulfate 2.5 mg NEB Q4H PRN 10/19/16 [History] Isosorbide Mononitrate [Imdur] 60 mg PO DAILY 10/26/16 [History] Allopurinol [Zyloprim] 300 mg PO QAM 06/13/17 [History] Cholecalciferol (Vitamin D3) [Vitamin D3] 2,000 unit PO DAILY 06/13/17 [History] predniSONE [Prednisone] 20 mg PO DAILY 06/13/17 [History] Acetaminophen 1,000 mg PO Q6HR 10/19/17 [History] Carvedilol 6.25 mg PO BID 10/19/17 [History] Hydrocortisone [Preparation H] 1 applic RECTAL ASDIRECTED PRN 10/19/17 [History] Insulin Aspart [NovoLOG] 4 unit SUBCUT QAM 10/19/17 [History] Insulin Aspart [NovoLOG] 10 units SUBCUT QPM 10/19/17 [History] Losartan [Cozaar] 25 mg PO BEDTIME 10/19/17 [History] Tamsulosin [Flomax] 0.8 mg PO DAILY 10/19/17 [History] hydrOXYzine Pamoate [Hydroxyzine Pamoate] 25 mg PO TID PRN 10/19/17 [History] Docusate Sodium [Colace] 100 mg PO TID PRN 12/28/17 [History] Non-Formulary Medication [NF Drug] 1 tab PO DAILY 01/28/18 [History] Sodium Chloride [Deep Sea] 5 ml NS ASDIRECTED PRN 01/28/18 [History] guaiFENesin [Mucinex] 1,200 mg PO BID PRN 01/28/18 [History] Past Medical History HEENT History: Reports: Cataract, Hard of Hearing, Impaired Vision, Macular Degeneration, Other (See Below) Other HEENT History: Glasses, macular degeneration and diabetic retinopathy, 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 and chronic left- sided tinnitus secondary to Mnire's disease, patient has not used his hearing aides secondary to ineffectiveness Cardiovascular History: Reports: Aneurysm, Arrhythmia, CAD, Cardiomyopathy, Heart Failure, Heart Murmur, High Cholesterol, Hypertension, PVD, Other (See Below) Other Cardiovascular History: PVCs, bigeminy, complete right bundle branch block , PACs, cardiomegaly with diastolic dysfunction by echocardiogram, recurrent CHF , tricuspid valve insufficiency, infrarenal abdominal aortic aneurysm initially diagnosed in 2006, chronic lymphedema of the lower extremities Respiratory History: Reports: Bronchitis, Recurrent, COPD, Pneumonia, Recurrent , Pulmonary Fibrosis, Sleep Apnea, Other (See Below) Other Respiratory History: 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 pylori , umbilical hernia, benign hepatic cysts by CT scan on 05/26/98 Genitourinary History: Reports: Acute Renal Failure, BPH, Chronic Renal Insuffiency, Diabetic Nephropathy, Prostate Disorder, Renal Disease, Other (See Below) Other Genitourinary History: Acute renal failure with secondary hypotension secondary to NSAIDs use on 10/01/14, BPH with history of PSA elevation, end- stage renal disease-stage III, erectile dysfunction Musculoskeletal History: Reports: Arthritis, Back Pain, Chronic, Fracture, Gout , Neck Pain, Chronic, Osteoarthritis, Osteoporosis, Other (See Below) Other Musculoskeletal History: Spinal stenosis at L4-5 with disc prolapse, positive NENO however no known SLE, proximal left fibular fracture in September 2014 Neurological History: Reports: Neuropathy, Diabetic, Neuropathy, Peripheral Psychiatric History: Reports: None Endocrine/Metabolic History: Reports: Diabetes, Type II, IDDM, Osteoporosis Hematologic History: Reports: None 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/04 Dermatologic History: Reports: Venous Stasis Dermatitis - Infectious Disease History Infectious Disease History: Reports: Chicken Pox, Helicobacter Pylori, Mumps, Shingles - Past Surgical History Head Surgeries/Procedures: Reports: None HEENT Surgical History: Reports: Cataract Surgery, Laser Surgery, Oral Surgery, Tonsillectomy Other HEENT Surgeries/Procedures: Right cataract surgery on 05/23/03, left cataract surgery on 06/12/04, tonsillectomy at age 9, left eye YAG treatment, complete teeth extraction Cardiovascular Surgical History: Reports: None Respiratory Surgical History: Reports: None GI Surgical History: Reports: Colonoscopy, EGD Other GI Surgeries/Procedures: Last Colonoscopy and EGD on 09/25/09, small bowel series on 10/02/09 Male Surgical History: Reports: Prostatectomy, TURP-Transurethral Resection of Prostate Other Male Surgeries/Procedures: Suprapubic partial prostatectomy in September 2004 with no evidence of prostate cancer despite previous PSA elevation Endocrine Surgical History: Reports: None Neurological Surgical History: Reports: Lumbar Spine, Other (See Below) Other Neurological Surgeries/Procedures: Unknown type of back surgeries x2 in the lumbar region Musculoskeletal Surgical History: Reports: None Oncologic Surgical History: Reports: Other (See Below) Other Oncologic Surgeries/Procedures: Mohs procedure as above Dermatological Surgical History: Reports: Skin Biopsy - Past Imaging History Past Imaging History: Reports: Cardiac Echo, Carotid US, CAT Scan, DEXA Scan, Holter Monitor, MRI, PFT, Sleep Study, Stress Testing, Ultrasound, Venous Doppler, Other (See Below) Social & Family History - Family History HEENT: Reports: None Cardiac: Reports: CAD, Hypertension, MN, Other (See Below) Other Cardiac Family History: Maternal uncle with fatal MN at age 42, another maternal uncle with fatal MN at age 48, mother with hypertension, patient denies history of coronary artery disease in sister despite [place] records Respiratory: Reports: COPD, Sleep Apnea, Other (See Below) Other Respiratory Family Hisory: Brother with COPD and sleep apnea with history of tobacco use : Reports: None OBGYN: Reports: None Musculoskeletal: Reports: Arthritis, Osteoarthritis, Other (See Below) Other Musculoskeletal Family History: Brother with osteoarthritis Neurological: Reports: Cerebral Aneurysms, CVA, Neuropathy, Peripheral, Other ( See Below) Other Neurological Family History: Sister with fatal cerebral aneurysm at age 42 , maternal uncle with fatal hemorrhagic CVA at age 65 , patient denies CVA in brother despite [place] records, brother with peripheral neuropathy Psychiatric: Reports: None Endocrine/Metabolic: Reports: None Hematologic: Reports: None Immunologic: Reports: None Oncologic: Reports: Breast, Other (See Below) Other Oncologic Family History: Mother with unknown type of fatal cancer at age 65, sister with breast cancer in her 60s - Tobacco Use Smoking Status *Q: Former Smoker Years of Tobacco use: 45 Used Tobacco, but Quit: Yes Month/Year Tobacco Last Used: 2001 - Caffeine Use Caffeine Use: Reports: Coffee Caffeine Use Comment: 3-4 cups of coffee per day, 1 soda per week - Recreational Drug Use Recreational Drug Use: No - Living Situation & Occupation Living situation: Reports: Occupation: Retired ED ROS GENERAL - Review of Systems Review Of Systems: See Below Constitutional: Reports: Chills (After he went to bed used an extra blanket) HEENT: Reports: No Symptoms Respiratory: Reports: Shortness of Breath Cardiovascular: Reports: No Symptoms Endocrine: Reports: No Symptoms GI/Abdominal: Reports: No Symptoms : Reports: Frequency, Urgency Musculoskeletal: Reports: Neck Pain, Shoulder Pain, Arm Pain, Muscle Pain, Muscle Stiffness Skin: Reports: No Symptoms Neurological: Reports: No Symptoms, Other (Peripheral neuropathy) Psychiatric: Reports: No Symptoms Hematologic/Lymphatic: Reports: No Symptoms Immunologic: Reports: No Symptoms ED EXAM, GENERAL - Physical Exam Exam: See Below Exam Limited By: No Limitations General Appearance: Alert, WD/WN Ears: Normal External Exam, Normal Canal, Hearing Grossly Normal, Normal TMs Ear Exam: Bilateral Ear: Auricle Normal, Canal Normal, TM normal Nose: Normal Inspection, Normal Mucosa, No Blood Throat/Mouth: Normal Inspection, Normal Lips, Normal Teeth, Normal Gums, Normal Oropharynx, Normal Voice, No Airway Compromise Head: Atraumatic, Normocephalic Neck: Normal Inspection, Supple, Non-Tender, Full Range of Motion Respiratory/Chest: Respiratory Distress, Decreased Breath Sounds, Rales. No: No Respiratory Distress Cardiovascular: Normal Peripheral Pulses, Regular Rate, Rhythm, No Edema, No Gallop, No JVD, No Murmur, No Rub GI/Abdominal: Normal Bowel Sounds, Soft, Non-Tender, No Organomegaly, No Distention, No Abnormal Bruit, No Mass Back Exam: Decreased Range of Motion, Other (Cervical and lower back discomfort) Extremities: Normal Inspection, Normal Range of Motion, Non-Tender, Normal Capillary Refill, No Pedal Edema Neurological: Alert, Oriented, CN II-XII Intact, Normal Cognition, Normal Gait, Normal Reflexes, No Motor/Sensory Deficits Psychiatric: Normal Affect, Normal Mood Skin Exam: Warm, Dry, Intact, Normal Color, No Rash Lymphatic: No Adenopathy Course - Vital Signs Last Recorded V/S: Last Vital Signs Temp 98.3 F 01/28/18 12:02 Pulse 87 01/28/18 12:15 Resp 22 H 01/28/18 13:00 BP 114/55 L 01/28/18 13:00 Pulse Ox 96 01/28/18 13:00 - Orders/Labs/Meds Orders: Active Orders 24 hr Category Date Time Status EKG Documentation Completion [RC] ASDIRECTED Care 01/28/18 12:17 Active Chest 1V Frontal [CR] Stat Exams 01/28/18 12:12 Taken Sodium Chloride 0.9% [Saline Flush] Med 01/28/18 12:16 Active 10 ml FLUSH ASDIRECTED PRN Saline Lock Insert [OM.PC] Stat Oth 01/28/18 12:16 Ordered Medication Orders Acetaminophen (Tylenol) 650 mg PO Q4H PRN PRN Reason: Pain Last Admin: 01/28/18 16:23 Dose: 650 mg Sodium Chloride (Saline Flush) 10 ml FLUSH ASDIRECTED PRN PRN Reason: Keep Vein Open Labs: Laboratory Tests 01/28/18 01/28/18 Range/Units 12:19 12:19 WBC 16.1 H (4.0-10.2) K/uL RBC 2.72 L (4.33-5.41) M/uL Hgb 9.8 L (13.1-16.8) g/dL Hct 30.5 L (39.0-49.0) % MCV 112.1 H D (84.0-98.0) fL MCH 36.0 H (28.2-33.3) pg MCHC 32.1 (31.7-36.0) g/dL RDW 15.5 H (11.2-14.1) % Plt Count 161 (150-350) K/uL Neut % (Auto) 75.6 (45.0-80.0) % Lymph % (Auto) 11.0 (10.0-50.0) % Morton % (Auto) 12.3 (2.0-14.0) % Eos % (Auto) 0.9 (0.0-5.0) % Baso % (Auto) 0.2 (0.0-2.0) % Neut # (Auto) 12.16 H (1.40-7.00) K/uL Lymph # (Auto) 1.78 (0.50-3.50) K/uL Morton # (Auto) 1.98 H (0.00-1.00) K/uL Eos # (Auto) 0.15 (0.00-0.50) K/uL Baso # (Auto) 0.04 (0.00-0.20) K/uL Sodium 135 L (136-145) mmol/L Potassium 4.5 (3.5-5.1) mmol/L Chloride 99 (98-107) mmol/L Carbon Dioxide 29.0 (21.0-32.0) mmol/L BUN 42 H (7-18) mg/dL Creatinine 1.52 H (0.51-1.17) mg/dL Est Cr Clr Drug Dosing 41.97 mL/min Estimated GFR (MDRD) 44 mL/min Glucose 305 H (74-106) mg/dL Calcium 9.2 (8.5-10.1) mg/dL NT-Pro-B Natriuret Pep 156 H (0-125) pg/mL Meds: Medications Generic Name Dose Route Start Last Admin Trade Name Freq PRN Reason Stop Dose Admin Acetaminophen 650 mg 01/28/18 16:01 01/28/18 16:23 Tylenol PO 650 mg Q4H PRN Administration Pain Sodium Chloride 10 ml 01/28/18 12:16 Saline Flush FLUSH ASDIRECTED PRN Keep Vein Open Departure - Departure Time of Disposition: 13:20 Disposition: Admitted As Inpatient 64 Condition: Fair Clinical Impression: Pneumonia, CHF, Congestive heart failure - Discharge Information - Problem List & Annotations (1) Pneumonia SNOMED Code(s): 751283831 Code(s): J18.9 - PNEUMONIA, UNSPECIFIED ORGANISM Status: Acute Current Visit: No Qualifiers: Pneumonia type: due to unspecified organism Laterality: left Lung location: lower lobe of lung Qualified Code(s): J18.1 - Lobar pneumonia, unspecified organism (2) CHF, Congestive heart failure SNOMED Code(s): 02738137 Code(s): I50.9 - HEART FAILURE, UNSPECIFIED Status: Acute Priority: High Current Visit: No Annotation/Comment:: History of recurrent CHF with recent hospitalization as above. High-dose IV Lasix given in the emergency room with continuation of aggressive IV Lasix therapy with caution secondary to his history of renal insufficiency. Moderate CHF by chest x-ray with elevated BNP and some change in his troponin I. Additional evidence of elevated cardiac index with ASA and Plavix given after results were obtained. Initiated subcutaneous Lovenox therapy in the emergency room. Otherwise initiated standard rule out MN orders. Various therapeutic options were given to the patient and his , who requested further care in this facility for now. No chest pain or anginal type symptoms. (3) Anemia due to medication SNOMED Code(s): 129028295 Code(s): D64.89 - OTHER SPECIFIED ANEMIAS Status: Acute Priority: Medium Current Visit: No (4) HTN, Benign hypertension SNOMED Code(s): 98293682 Code(s): I10 - ESSENTIAL (PRIMARY) HYPERTENSION Status: Acute Priority: High Current Visit: No Annotation/Comment:: Blood pressures under good control in the emergency room (5) Diabetes mellitus SNOMED Code(s): 36947530 Code(s): E11.9 - TYPE 2 DIABETES MELLITUS WITHOUT COMPLICATIONS Status: Acute Priority: Medium Current Visit: No Annotation/Comment:: Glycosylated hemoglobin 10.9 - Problem List Review Problem List Initiated/Reviewed/Updated: Yes - My Orders Last 24 Hours: My Active Orders 01/28/18 12:12 Chest 1V Frontal [CR] Stat 01/28/18 12:16 Sodium Chloride 0.9% [Saline Flush] 10 ml FLUSH ASDIRECTED PRN Saline Lock Insert [OM.PC] Stat 01/28/18 12:17 EKG Documentation Completion [RC] ASDIRECTED - Assessment/Plan Admission H&P: Please use this note as an admission H&P Last 24 Hours: My Active Orders 01/28/18 12:12 Chest 1V Frontal [CR] Stat 01/28/18 12:16 Sodium Chloride 0.9% [Saline Flush] 10 ml FLUSH ASDIRECTED PRN Saline Lock Insert [OM.PC] Stat 01/28/18 12:17 EKG Documentation Completion [RC] ASDIRECTED Plan: Patient will be admitted continue on Lasix and antibiotics as inpatient
[2018-01-28] MEDS ORDERED: Acetaminophen 325 MG Tab PO PRN (16:01)
[2018-01-28] MEDS ORDERED: Albuterol/Ipratropium 3.0-0.5 MG/3 ML Neb Soln NEB PRN (17:05)
[2018-01-28] MEDS ORDERED: Sodium Chloride 0.65% Nasal Spray 45 ML Bottle NASBOTH PRN (17:09)
[2018-01-28] MEDS ORDERED: Docusate Sodium 100 MG Cap PO PRN (17:09)
[2018-01-28] MEDS ORDERED: Calcium Carbonate 750 MG Tab.Chew PO PRN (17:09)
[2018-01-28] MEDS ORDERED: Albuterol 0.083% 2.5 MG/3 ML Neb Soln NEB PRN (17:09)
[2018-01-28] MEDS ORDERED: GUAIFENESIN 1200 MG PO PRN (17:09)
[2018-01-28] MEDS ORDERED: hydrOXYzine Pamoate 25 MG Cap PO PRN (17:09)
[2018-01-28] MEDS ORDERED: Levofloxacin/Dextrose 5%-Water 500 MG in Premix Bag 1 BAG IV SCH (17:15)
[2018-01-28] MEDS ORDERED: guaiFENesin 600 MG Tab.ER PO PRN (17:32)
[2018-01-28] MEDS: Piperacillin/Tazobactam 3.375 GM in Sodium Chloride 0.9% 100 ML IV SCH ×2 (17:46→22:59)
[2018-01-28] MEDS: Arformoterol 15 MCG/2 ML Neb Soln INH SCH (17:47)
[2018-01-28] MEDS: Carvedilol 6.25 MG Tab PO SCH (17:47)
[2018-01-28] MEDS: Omeprazole 20 MG Cap.CR PO SCH (17:47)
[2018-01-28] MEDS: Budesonide 0.5 MG/2 ML Neb Susp INH SCH (17:47)
[2018-01-28] MEDS: Gabapentin 300 MG Cap PO SCH (17:47)
[2018-01-28] MEDS ORDERED: Insulin Aspart 100 Units/ML 3 ML Pen SUBCUT SCH (18:00)
[2018-01-28] MEDS ORDERED: Non-Formulary Medication 1 Each (Carboxymethylcellulose Sodium [Refresh Tears 0.5%] 1 DROP EYEBOTH SCH (20:00)
[2018-01-28] MEDS: Albuterol/Ipratropium 4 GM Inhalation Spray INH SCH (20:03)
[2018-01-28] MEDS: Losartan 50 MG Tab PO SCH (20:04)
[2018-01-28] MEDS: Acetaminophen 500 MG Tab PO SCH (22:59)
[2018-01-28] MEDS: Sodium Chloride 0.9% 10 ML Syringe FLUSH PRN (22:59)
[2018-01-28] MEDS: Polyvinyl Alcohol 1.4% Ophth Soln 15 ML Bottle EYEBOTH SCH (22:59)
[2018-01-29] MEDS: Acetaminophen 500 MG Tab PO SCH (04:50)
[2018-01-29] MEDS: Piperacillin/Tazobactam 3.375 GM in Sodium Chloride 0.9% 100 ML IV SCH ×4 (04:50→23:27)
[2018-01-29] MEDS: Polyvinyl Alcohol 1.4% Ophth Soln 15 ML Bottle EYEBOTH SCH ×3 (08:07→19:33)
[2018-01-29] MEDS: Allopurinol 100 MG Tab PO SCH (08:08)
[2018-01-29] MEDS: Arformoterol 15 MCG/2 ML Neb Soln INH SCH ×2 (08:08→17:08)
[2018-01-29] MEDS: Enoxaparin 40 MG/0.4 ML Syringe SUBCUT SCH (08:08)
[2018-01-29] MEDS: Albuterol/Ipratropium 4 GM Inhalation Spray INH SCH ×4 (08:08→19:33)
[2018-01-29] MEDS: Budesonide 0.5 MG/2 ML Neb Susp INH SCH ×2 (08:08→17:07)
[2018-01-29] MEDS: Multivitamin Tab PO SCH (08:09)
[2018-01-29] MEDS: Lutein/Minerals/Vitamin C/Vitamin E Acetate Cap PO SCH (08:09)
[2018-01-29] MEDS: predniSONE 20 MG Tab PO SCH (08:09)
[2018-01-29] MEDS: Cholecalciferol (Vitamin D3) 1,000 Unit Tab PO SCH (08:09)
[2018-01-29] MEDS: Aspirin 81 MG Tab.Chew PO SCH (08:09)
[2018-01-29] MEDS: Tamsulosin 0.4 MG Cap.ER PO SCH (08:09)
[2018-01-29] MEDS: Omeprazole 20 MG Cap.CR PO SCH ×2 (08:09→17:08)
[2018-01-29] MEDS: Isosorbide Mononitrate 60 MG Tab.ER PO SCH (08:09)
[2018-01-29] MEDS: Sodium Chloride 0.9% 10 ML Syringe FLUSH PRN ×4 (08:10→23:27)
[2018-01-29] MEDS: Gabapentin 300 MG Cap PO SCH ×3 (08:10→17:08)
[2018-01-29] MEDS: Carvedilol 6.25 MG Tab PO SCH ×2 (08:10→17:08)
[2018-01-29] MEDS: Furosemide 40 MG/4 ML VIAL IVPUSH SCH (08:10)
[2018-01-29] MEDS: Insulin Aspart 100 Units/ML 3 ML Pen SUBCUT SCH (08:12)
[2018-01-29] MEDS: Insulin Detemir 100 Units/ML 3 ML Pen SUBCUT SCH (08:15)
[2018-01-29] MEDS ORDERED: Insulin Aspart 100 Units/ML 3 ML Pen SUBCUT SCH (12:00)
[2018-01-29] MEDS: Acetaminophen 500 MG Tab PO PRN ×2 (15:14→23:27)
[2018-01-29] MEDS ORDERED: Insulin Aspart 100 Units/ML 3 ML Pen SUBCUT ONE ×2 (17:00→20:17)
--- NOTE | 2018-01-29 17:21 | PCM.PN ---
- General Info Date of Service: 01/29/18 Functional Status: Reports: Incentive Spirometry - Review of Systems General: Reports: Weakness HEENT: Reports: No Symptoms Pulmonary: Reports: Shortness of Breath, Other (Subsided) Cardiovascular: Reports: No Symptoms Gastrointestinal: Reports: No Symptoms Genitourinary: Reports: No Symptoms Musculoskeletal: Reports: No Symptoms Skin: Reports: No Symptoms Neurological: Reports: No Symptoms Psychiatric: Reports: No Symptoms - Patient Data Vitals - Most Recent: Last Vital Signs Temp 99.5 F 01/29/18 15:39 Pulse 88 01/29/18 17:08 Resp 16 01/29/18 15:39 BP 149/74 H 01/29/18 17:08 Pulse Ox 96 01/29/18 15:39 Weight - Most Recent: 288 lb 12.889 oz I&O - Last 24 Hours: Intake & Output 01/29/18 01/29/18 01/29/18 06:59 14:59 22:59 Intake Total 940 Output Total 500 700 Balance -500 240 Lab Results Last 24 Hours: Laboratory Results - last 24 hr 01/29/18 01/29/18 01/29/18 Range/Units 00:47 06:58 06:58 WBC 12.5 H (4.0-10.2) K/uL RBC 2.65 L (4.33-5.41) M/uL Hgb 9.4 L (13.1-16.8) g/dL Hct 29.8 L (39.0-49.0) % MCV 112.5 H (84.0-98.0) fL MCH 35.5 H (28.2-33.3) pg MCHC 31.5 L (31.7-36.0) g/dL RDW 15.4 H (11.2-14.1) % Plt Count 158 (150-350) K/uL MPV 10.00 (7.00-11.50) fL Sodium 138 (136-145) mmol/L Potassium 4.0 (3.5-5.1) mmol/L Chloride 102 (98-107) mmol/L Carbon Dioxide 28.1 (21.0-32.0) mmol/L BUN 38 H (7-18) mg/dL Creatinine 1.59 H (0.51-1.17) mg/dL Est Cr Clr Drug Dosing 40.12 mL/min Estimated GFR (MDRD) 42 mL/min Glucose 149 H (74-106) mg/dL POC Glucose 152 H (65-110) mg/dl Calcium 9.3 (8.5-10.1) mg/dL 01/29/18 01/29/18 01/29/18 Range/Units 07:18 11:18 16:49 WBC (4.0-10.2) K/uL RBC (4.33-5.41) M/uL Hgb (13.1-16.8) g/dL Hct (39.0-49.0) % MCV (84.0-98.0) fL MCH (28.2-33.3) pg MCHC (31.7-36.0) g/dL RDW (11.2-14.1) % Plt Count (150-350) K/uL MPV (7.00-11.50) fL Sodium (136-145) mmol/L Potassium (3.5-5.1) mmol/L Chloride (98-107) mmol/L Carbon Dioxide (21.0-32.0) mmol/L BUN (7-18) mg/dL Creatinine (0.51-1.17) mg/dL Est Cr Clr Drug Dosing mL/min Estimated GFR (MDRD) mL/min Glucose (74-106) mg/dL POC Glucose 133 H 221 H 345 H* (65-110) mg/dl Calcium (8.5-10.1) mg/dL Med Orders - Current: Current Medications Acetaminophen (Tylenol Extra Strength) 1,000 mg PO Q6HR PRN PRN Reason: Pain Last Admin: 01/29/18 15:14 Dose: 1,000 mg Albuterol (Proventil Neb Soln) 2.5 mg NEB Q4H PRN PRN Reason: Shortness of Breath Albuterol/Ipratropium (Duoneb 3.0-0.5 Mg/3 Ml) 3 ml NEB Q6HRRT PRN PRN Reason: Shortness of Breath Albuterol/Ipratropium (Combivent Respimat) 0 gm INH QID [facility] Last Admin: 01/29/18 17:07 Dose: 1 puff Allopurinol (Zyloprim) 300 mg PO QAM [facility] Last Admin: 01/29/18 08:08 Dose: 300 mg Arformoterol Tartrate (Brovana) 15 mcg INH BID [facility] Last Admin: 01/29/18 17:08 Dose: 15 mcg Artificial Tears (Liquitears 1.4% Ophth Soln) 0 ml EYEBOTH TID@0800,1200,2000 [facility] Last Admin: 01/29/18 11:42 Dose: 2 drop Aspirin (Aspirin) 81 mg PO DAILY [facility] Last Admin: 01/29/18 08:09 Dose: 81 mg Budesonide (Pulmicort) 0.5 mg INH BID [facility] Last Admin: 01/29/18 17:07 Dose: 0.5 mg Calcium Carbonate/Glycine (Tums Extra Strength) 750 mg PO QID PRN PRN Reason: Heartburn Carvedilol (Coreg) 6.25 mg PO BID [facility] Last Admin: 01/29/18 17:08 Dose: 6.25 mg Cholecalciferol (Vitamin D3) 2,000 units PO DAILY [facility] Last Admin: 01/29/18 08:09 Dose: 2,000 units Docusate Sodium (Colace) 100 mg PO TID PRN PRN Reason: Constipation Enoxaparin Sodium (Lovenox) 40 mg SUBCUT DAILY [facility] Last Admin: 01/29/18 08:08 Dose: 40 mg Furosemide (Lasix) 40 mg IVPUSH DAILY [facility] Last Admin: 01/29/18 08:10 Dose: 40 mg Gabapentin (Neurontin) 300 mg PO TID [facility] Last Admin: 01/29/18 17:08 Dose: 300 mg Guaifenesin (Mucinex) 1,200 mg PO BID PRN PRN Reason: Cough Hydroxyzine Pamoate (Vistaril) 25 mg PO TID PRN PRN Reason: Other Piperacillin Sod/Tazobactam (Sod 3.375 gm/ Sodium Chloride) 100 mls @ 200 mls/ hr IV Q6H [facility] Last Admin: 01/29/18 17:08 Dose: 200 mls/hr Levofloxacin/Dextrose 250 mg/ (Premix) 50 mls @ 50 mls/hr IV Q24H [facility] Insulin Aspart (Novolog) 4 unit SUBCUT QAM [facility] Last Admin: 01/29/18 08:12 Dose: 4 units Insulin Aspart (Novolog) 10 unit SUBCUT DAILY@1200 [facility] Last Admin: 01/29/18 11:42 Dose: 10 units Insulin Aspart (Novolog) 10 unit SUBCUT ONETIME ONE Stop: 01/29/18 17:01 Insulin Detemir (Levemir) 30 unit SUBCUT QAM [facility] Last Admin: 01/29/18 08:15 Dose: 30 units Isosorbide Mononitrate (Imdur) 60 mg PO DAILY [facility] Last Admin: 01/29/18 08:09 Dose: 60 mg Losartan Potassium (Cozaar) 25 mg PO BEDTIME [facility] Last Admin: 01/28/18 20:04 Dose: 25 mg Multivitamins/Minerals/Vitamin C (Tab-A-Prisca) 1 tab PO DAILY [facility] Last Admin: 01/29/18 08:09 Dose: 1 tab Omeprazole (Omeprazole) 20 mg PO BIDAC [facility] Last Admin: 01/29/18 17:08 Dose: 20 mg Prednisone (Prednisone) 20 mg PO DAILY [facility] Last Admin: 01/29/18 08:09 Dose: 20 mg Sodium Chloride (Saline Flush) 10 ml FLUSH ASDIRECTED PRN PRN Reason: Keep Vein Open Last Admin: 01/29/18 17:10 Dose: 10 ml Sodium Chloride ([place] Nasal Bowler) 5 ml NASBOTH ASDIRECTED PRN PRN Reason: Dryness Tamsulosin HCl (Flomax) 0.8 mg PO DAILY [facility] Last Admin: 01/29/18 08:09 Dose: 0.8 mg Vit C/Vit E/Zinc/Copper/Lutein (Ocuvite Lutein) 1 each PO DAILY [facility] Last Admin: 01/29/18 08:09 Dose: 1 each Discontinued Medications Acetaminophen (Tylenol) 650 mg PO Q4H PRN PRN Reason: Pain Last Admin: 01/28/18 16:23 Dose: 650 mg Acetaminophen (Tylenol Extra Strength) 1,000 mg PO Q6HR [facility] Last Admin: 01/29/18 04:50 Dose: 1,000 mg Levofloxacin/Dextrose 500 mg/ (Premix) 100 mls @ 100 mls/hr IV Q24H [facility] Last Admin: 01/28/18 17:46 Dose: 100 mls/hr Insulin Aspart (Novolog) 10 unit SUBCUT QPM [facility] Last Admin: 01/28/18 17:48 Dose: 10 units Non-Formulary Medication (Carboxymethylcellulose Sodium [Refresh Tears 0.5%]) 1 drop EYEBOTH QID [facility] Non-Formulary Medication (Guaifenesin [Mucinex]) 1,200 mg PO BID PRN PRN Reason: Cough - Exam Quality Assessment: Supplemental Oxygen General: Alert, Oriented, Mild Distress HEENT: Pupils Equal, Pupils Reactive, EOMI, Mucous Membr. Moist/[place] Neck: Supple Lungs: Decreased Breath Sounds, Rales Cardiovascular: Regular Rate, Regular Rhythm GI/Abdominal Exam: Normal Bowel Sounds, Soft, Non-Tender, No Organomegaly, No Distention, No Abnormal Bruit, No Mass, Pelvis Stable (Male) Exam: Deferred Back Exam: Decreased Range of Motion Extremities: Normal Inspection, Normal Range of Motion, Non-Tender, Normal Capillary Refill, Pedal Edema Peripheral Pulses: 0: Femoral (L) Skin: Warm, Dry, Intact Neurological: No New Focal Deficit Psy/Mental Status: Alert, Normal Affect, Normal Mood - Problem List & Annotations (1) Pneumonia SNOMED Code(s): 457561954 Code(s): J18.9 - PNEUMONIA, UNSPECIFIED ORGANISM Status: Acute Current Visit: No Qualifiers: Pneumonia type: due to unspecified organism Laterality: left Lung location: lower lobe of lung Annotation/Comment:: Pneumonia improving breathing easier we'll continue antibiotic (2) CHF, Congestive heart failure SNOMED Code(s): 86002004 Code(s): I50.9 - HEART FAILURE, UNSPECIFIED Status: Acute Priority: High Current Visit: Yes Annotation/Comment:: History of recurrent CHF with recent hospitalization as above. High-dose IV Lasix given in the emergency room with continuation of aggressive IV Lasix therapy with caution secondary to his history of renal insufficiency. Moderate CHF by chest x-ray with elevated BNP and some change in his troponin I. Additional evidence of elevated cardiac index with ASA and Plavix given after results were obtained. Initiated subcutaneous Lovenox therapy in the emergency room. Otherwise initiated standard rule out [place] orders. Various therapeutic options were given to the patient and his , who requested further care in this facility for now. No chest pain or anginal type symptoms. Patient doing much better we'll transfer care to Dr. santana in the morning continued therapy (3) Anemia due to medication SNOMED Code(s): 034596535 Code(s): D64.89 - OTHER SPECIFIED ANEMIAS Status: Acute Priority: Medium Current Visit: No (4) HTN, Benign hypertension SNOMED Code(s): 36449661 Code(s): I10 - ESSENTIAL (PRIMARY) HYPERTENSION Status: Acute Priority: High Current Visit: No Annotation/Comment:: Blood pressures under good control in the emergency room (5) Diabetes mellitus SNOMED Code(s): 12402113 Code(s): E11.9 - TYPE 2 DIABETES MELLITUS WITHOUT COMPLICATIONS Status: Acute Priority: Medium Current Visit: No Annotation/Comment:: Glycosylated hemoglobin 10.9 - Problem List Review Problem List Initiated/Reviewed/Updated: Yes - My Orders Last 24 Hours: My Active Orders 01/28/18 16:55 Patient Status [ADT] Routine Vital Signs [RC] Q4HR 01/28/18 16:57 Bedrest Bathroom Privileges [RC] ASDIRECTED May Shower [RC] ASDIRECTED Up With Assistance [RC] ASDIRECTED DVT/VTE Prophylaxis Reflex [OM.PC] Routine 01/28/18 16:58 Patient Status [ADT] Routine 01/28/18 17:01 Oxygen Therapy [RC] 2300 Pulse Oximetry [RC] PRN 01/28/18 17:03 Antiembolic Devices [RC] 08,20 VTE/DVT Education [RC] PER UNIT ROUTINE 01/28/18 17:05 Albuterol/Ipratropium [DuoNeb 3.0-0.5 MG/3 ML] 3 ml NEB Q6HRRT PRN 01/28/18 17:07 RT Aerosol Therapy [RC] 08,12,16,20 01/28/18 17:08 Blood Culture x2 Reflex Set [OM.PC] Stat 01/28/18 17:09 Albuterol [Proventil Neb Soln] 2.5 mg NEB Q4H PRN Calcium Carbonate [Tums Extra Strength] 750 mg PO QID PRN Docusate Sodium [Colace] 100 mg PO TID PRN Sodium Chloride 0.65% [[place] Nasal Bowler] 5 ml NASBOTH ASDIRECTED PRN hydrOXYzine Pamoate [Vistaril] 25 mg PO TID PRN 01/28/18 17:15 Piperacillin/Tazobactam [Zosyn] 3.375 gm Sodium Chloride 0.9% [Normal Saline] 100 ml IV Q6H 01/28/18 17:30 Omeprazole 20 mg PO BIDAC 01/28/18 17:32 guaiFENesin [Mucinex] 1,200 mg PO BID PRN 01/28/18 17:39 Blood Glucose Check, Bedside [RC] QIDACANDBED 01/28/18 18:00 Arformoterol [Brovana] 15 mcg INH BID Budesonide [Pulmicort] 0.5 mg INH BID Carvedilol [Coreg] 6.25 mg PO BID Gabapentin [Neurontin] 300 mg PO TID 01/28/18 18:29 Code Status [Resuscitation Status] Routine 01/28/18 18:50 CULTURE BLOOD [BC] Stat 01/28/18 18:59 CULTURE BLOOD [BC] Stat 01/28/18 20:00 Albuterol/Ipratropium [Combivent Respimat] 0 gm INH QID Losartan [Cozaar] 25 mg PO BEDTIME 01/28/18 22:00 Polyvinyl Alcohol [LiquiTears 1.4% Ophth Soln] 0 ml EYEBOTH TID@0800,1200, 2000 01/28/18 Dinner 2 Gram Sodium Diet [DIET] 01/29/18 05:11 Chest 2V [CR] Routine 01/29/18 06:00 Height and Weight [RC] 0600 01/29/18 08:00 Allopurinol [Zyloprim] 300 mg PO QAM Aspirin 81 mg PO DAILY Cholecalciferol (Vitamin D3) [Vitamin D3] 2,000 units PO DAILY Enoxaparin [Lovenox] 40 mg SUBCUT DAILY Furosemide [Lasix] 40 mg IVPUSH DAILY Insulin Aspart [NovoLOG] 4 unit SUBCUT QAM Insulin Detemir [Levemir] 30 unit SUBCUT QAM Isosorbide Mononitrate [Imdur] 60 mg PO DAILY Lutein/Min/Vit C/Vit E Acetate [Ocuvite Lutein] 1 each PO DAILY Multivitamins [Tab-A-Prisca] 1 tab PO DAILY Tamsulosin [Flomax] 0.8 mg PO DAILY predniSONE 20 mg PO DAILY 01/29/18 09:29 Acetaminophen [Tylenol Extra Strength] 1,000 mg PO Q6HR PRN 01/29/18 12:00 Insulin Aspart [NovoLOG] 10 unit SUBCUT DAILY@1200 01/29/18 17:00 Insulin Aspart [NovoLOG] 10 unit SUBCUT ONETIME ONE 01/29/18 18:00 Levofloxacin/Dextrose 5%-Water [Levaquin in D5W 250 MG/50 ML] 250 mg Premix Bag 1 bag IV Q24H - Plan Plan:: Patient doing much better we will transfer case to Dr. santana of service in the morning for now will continue antibiotics and diuresing as instructed I will adjust insulin as needed
[2018-01-29] MEDS: Levofloxacin/Dextrose 5%-Water 250 MG in Premix Bag 1 BAG IV SCH (17:58)
[2018-01-29] MEDS: Losartan 50 MG Tab PO SCH (19:33)
[2018-01-30] MEDS: Piperacillin/Tazobactam 3.375 GM in Sodium Chloride 0.9% 100 ML IV SCH ×4 (05:43→22:15)
[2018-01-30] MEDS: Sodium Chloride 0.9% 10 ML Syringe FLUSH PRN ×4 (05:43→22:11)
[2018-01-30] MEDS: Arformoterol 15 MCG/2 ML Neb Soln INH SCH ×2 (07:54→18:04)
[2018-01-30] MEDS: Lutein/Minerals/Vitamin C/Vitamin E Acetate Cap PO SCH (07:55)
[2018-01-30] MEDS: Omeprazole 20 MG Cap.CR PO SCH ×2 (07:55→18:04)
[2018-01-30] MEDS: Multivitamin Tab PO SCH (07:56)
[2018-01-30] MEDS: Tamsulosin 0.4 MG Cap.ER PO SCH (07:56)
[2018-01-30] MEDS: Allopurinol 100 MG Tab PO SCH (07:57)
[2018-01-30] MEDS: Gabapentin 300 MG Cap PO SCH ×3 (07:59→18:05)
[2018-01-30] MEDS: Budesonide 0.5 MG/2 ML Neb Susp INH SCH ×2 (08:04→17:52)
[2018-01-30] MEDS: Cholecalciferol (Vitamin D3) 1,000 Unit Tab PO SCH (08:04)
[2018-01-30] MEDS: Isosorbide Mononitrate 60 MG Tab.ER PO SCH (08:05)
[2018-01-30] MEDS: Aspirin 81 MG Tab.Chew PO SCH (08:05)
[2018-01-30] MEDS: Carvedilol 6.25 MG Tab PO SCH ×2 (08:05→18:06)
[2018-01-30] MEDS: Furosemide 40 MG/4 ML VIAL IVPUSH SCH (08:06)
[2018-01-30] MEDS: Polyvinyl Alcohol 1.4% Ophth Soln 15 ML Bottle EYEBOTH SCH ×3 (08:06→20:11)
[2018-01-30] MEDS: predniSONE 20 MG Tab PO SCH (08:06)
[2018-01-30] MEDS: Enoxaparin 40 MG/0.4 ML Syringe SUBCUT SCH (08:07)
[2018-01-30] MEDS: Albuterol/Ipratropium 4 GM Inhalation Spray INH SCH (08:08)
[2018-01-30] MEDS: Insulin Detemir 100 Units/ML 3 ML Pen SUBCUT SCH (08:35)
[2018-01-30] MEDS: Insulin Aspart 100 Units/ML 3 ML Pen SUBCUT SCH ×4 (08:37→20:14)
[2018-01-30] MEDS ORDERED: Albuterol/Ipratropium 3.0-0.5 MG/3 ML Neb Soln NEB PRN (10:44)
--- NOTE | 2018-01-30 10:58 | PCM.PN ---
- General Info Date of Service: 01/30/18 Admission Dx/Problem (Free Text): 1. Pneumonia 2. COPD exacerbation Functional Status: Reports: Pain Controlled, Tolerating Diet, Ambulating, Urinating, Incentive Spirometry. Denies: New Symptoms Pain Score: 0 - Review of Systems General: Reports: No Symptoms. Denies: Fever, Weakness, Fatigue, Chills, Night Sweats, Appetite HEENT: Reports: No Symptoms. Denies: Eye Pain, Headaches, Post Nasal Drip, Sinus Congestion, Sore Throat, Rhinitis, Visual Changes Pulmonary: Reports: Cough. Denies: Shortness of Breath, Pleuritic Chest Pain, Sputum, Hemoptysis, Wheezing Cardiovascular: Reports: Edema (Stable lymphedema of the lower extremities). Denies: Chest Pain, Palpitations, Dyspnea on Exertion, Orthopnea, PND, Lightheadedness Gastrointestinal: Reports: No Symptoms, Other (Normal bowel movement earlier this morning by his history). Denies: Abdominal Pain, Constipation, Decreased Appetite, Diarrhea, Difficulty Swallowing, Flatus, Hematochezia, Melena, Nausea , Vomiting Genitourinary: Reports: Incontinence. Denies: Dysuria, Frequency, Burning, Pain , Urgency, Hematuria, Retention, Flank Pain Musculoskeletal: Reports: Back Pain (Stable occasional chronic low back), Other (Stable moderate lymphedema of the lower extremities). Denies: Neck Pain, Shoulder Pain, Arm Pain, Leg Pain Skin: Reports: No Symptoms. Denies: Pallor, Diaphoresis, Bruising Neurological: Reports: No Symptoms. Denies: Confusion, Dizziness, Headache, Numbness, Paresthesia, Syncope, Tingling, Weakness Psychiatric: Reports: No Symptoms. Denies: Depression, Anxiety, Agitation, Hallucinations - Patient Data Vitals - Most Recent: Last Vital Signs Temp 36.4 C 01/30/18 07:57 Pulse 73 01/30/18 08:05 Resp 18 01/30/18 07:57 BP 126/66 01/30/18 08:05 Pulse Ox 94 L 01/30/18 07:57 Vital Signs - 24 hr 01/29/18 01/29/18 01/29/18 12:00 15:39 17:01 Temperature [ 36.6 C 37.5 C Temporal] Pulse, Peripheral Pulse, 100 88 Peripheral [ Right Pulse Oximetry] Respiratory 26 H 16 Rate Blood Pressure Blood Pressure 140/63 149/74 H [Left Upper Arm ] O2 Sat by Pulse 96 96 96 Oximetry 01/29/18 01/29/18 01/29/18 17:08 20:00 23:31 Temperature [ 37.2 C 36.8 C Temporal] Pulse, 88 Peripheral Pulse, 87 77 Peripheral [ Right Pulse Oximetry] Respiratory 16 22 H Rate Blood Pressure 149/74 H Blood Pressure 134/64 135/70 [Left Upper Arm ] O2 Sat by Pulse 96 95 Oximetry 01/30/18 01/30/18 01/30/18 04:00 07:57 08:05 Temperature [ 36.6 C 36.4 C Temporal] Pulse, 73 Peripheral Pulse, 85 73 Peripheral [ Right Pulse Oximetry] Respiratory 24 H 18 Rate Blood Pressure 126/66 Blood Pressure 166/86 H 126/66 [Left Upper Arm ] O2 Sat by Pulse 93 L 94 L Oximetry Weight - Most Recent: 132.131 kg I&O - Last 24 Hours: Intake & Output 01/29/18 01/30/18 01/30/18 22:59 06:59 14:59 Intake Total 920 200 Output Total 300 350 Balance 620 -150 Imaging Impressions - Last 24 Hours: Chest x-ray, PA and lateral, shows moderate COPD and pulmonary fibrotic changes with bilateral lower lobe atelectasis versus borderline pulmonary infiltrates. Mild centralized CHF noted with additional small hiatal hernia with moderate osteoarthritic and osteoporotic changes in the thoracic spine. Lab Results Last 24 Hours: Laboratory Results - last 24 hr 01/29/18 01/29/18 01/29/18 Range/Units 11:18 16:49 19:32 WBC (4.0-10.2) K/uL RBC (4.33-5.41) M/uL Hgb (13.1-16.8) g/dL Hct (39.0-49.0) % MCV (84.0-98.0) fL MCH (28.2-33.3) pg MCHC (31.7-36.0) g/dL RDW (11.2-14.1) % Plt Count (150-350) K/uL MPV (7.00-11.50) fL Sodium (136-145) mmol/L Potassium (3.5-5.1) mmol/L Chloride (98-107) mmol/L Carbon Dioxide (21.0-32.0) mmol/L BUN (7-18) mg/dL Creatinine (0.51-1.17) mg/dL Est Cr Clr Drug Dosing mL/min Estimated GFR (MDRD) mL/min Glucose (74-106) mg/dL POC Glucose 221 H 345 H* 298 H* (65-110) mg/dl Calcium (8.5-10.1) mg/dL 01/30/18 01/30/18 01/30/18 Range/Units 05:45 07:00 07:00 WBC 10.1 (4.0-10.2) K/uL RBC 2.54 L (4.33-5.41) M/uL Hgb 9.1 L (13.1-16.8) g/dL Hct 28.4 L (39.0-49.0) % MCV 111.8 H (84.0-98.0) fL MCH 35.8 H (28.2-33.3) pg MCHC 32.0 (31.7-36.0) g/dL RDW 15.5 H (11.2-14.1) % Plt Count 169 (150-350) K/uL MPV 9.80 (7.00-11.50) fL Sodium 136 (136-145) mmol/L Potassium 3.8 (3.5-5.1) mmol/L Chloride 101 (98-107) mmol/L Carbon Dioxide 28.7 (21.0-32.0) mmol/L BUN 37 H (7-18) mg/dL Creatinine 1.54 H (0.51-1.17) mg/dL Est Cr Clr Drug Dosing 41.26 mL/min Estimated GFR (MDRD) 44 mL/min Glucose 163 H (74-106) mg/dL POC Glucose 161 H (65-110) mg/dl Calcium 9.3 (8.5-10.1) mg/dL Murali Results Last 24 Hours: Microbiology 01/28/18 18:59 Aerobic Blood Culture - Preliminary Blood - Venous - Lab Draw NO GROWTH AFTER 1 DAY Anaerobic Blood Culture - Preliminary NO GROWTH AFTER 1 DAY 01/28/18 18:50 Aerobic Blood Culture - Preliminary Blood - Venous NO GROWTH AFTER 1 DAY Anaerobic Blood Culture - Preliminary NO GROWTH AFTER 1 DAY Med Orders - Current: Current Medications Acetaminophen (Tylenol Extra Strength) 1,000 mg PO Q6HR PRN PRN Reason: Pain Last Admin: 01/29/18 23:27 Dose: 1,000 mg Albuterol (Proventil Neb Soln) 2.5 mg INH Q2H PRN PRN Reason: SHORTNESS OF BREATH Albuterol/Ipratropium (Duoneb 3.0-0.5 Mg/3 Ml) 3 ml NEB Q4HRRT PRN PRN Reason: Dyspnea Albuterol/Ipratropium (Duoneb 3.0-0.5 Mg/3 Ml) 3 ml NEB Q6HRRT COUNT INCLUDES THE [facility] Allopurinol (Zyloprim) 300 mg PO QAM COUNT INCLUDES THE [facility] Last Admin: 01/30/18 07:57 Dose: 300 mg Arformoterol Tartrate (Brovana) 15 mcg INH BID COUNT INCLUDES THE [facility] Last Admin: 01/30/18 07:54 Dose: 15 mcg Artificial Tears (Liquitears 1.4% Ophth Soln) 0 ml EYEBOTH TID@0800,1200,2000 COUNT INCLUDES THE [facility] Last Admin: 01/30/18 08:06 Dose: 2 drop Aspirin (Aspirin) 81 mg PO DAILY COUNT INCLUDES THE [facility] Last Admin: 01/30/18 08:05 Dose: 81 mg Budesonide (Pulmicort) 0.5 mg INH BID COUNT INCLUDES THE [facility] Last Admin: 01/30/18 08:04 Dose: 0.5 mg Calcium Carbonate/Glycine (Tums Extra Strength) 750 mg PO QID PRN PRN Reason: Heartburn Carvedilol (Coreg) 6.25 mg PO BID COUNT INCLUDES THE [facility] Last Admin: 01/30/18 08:05 Dose: 6.25 mg Cholecalciferol (Vitamin D3) 2,000 units PO DAILY COUNT INCLUDES THE [facility] Last Admin: 01/30/18 08:04 Dose: 2,000 units Docusate Sodium (Colace) 100 mg PO TID PRN PRN Reason: Constipation Enoxaparin Sodium (Lovenox) 40 mg SUBCUT DAILY COUNT INCLUDES THE [facility] Last Admin: 01/30/18 08:07 Dose: 40 mg Furosemide (Lasix) 40 mg IVPUSH DAILY COUNT INCLUDES THE [facility] Last Admin: 01/30/18 08:06 Dose: 40 mg Gabapentin (Neurontin) 300 mg PO TID COUNT INCLUDES THE [facility] Last Admin: 01/30/18 07:59 Dose: 300 mg Guaifenesin (Mucinex) 1,200 mg PO BID PRN PRN Reason: Cough Hydroxyzine Pamoate (Vistaril) 25 mg PO TID PRN PRN Reason: Other Piperacillin Sod/Tazobactam (Sod 3.375 gm/ Sodium Chloride) 100 mls @ 200 mls/ hr IV Q6H COUNT INCLUDES THE [facility] Last Admin: 01/30/18 05:43 Dose: 200 mls/hr Levofloxacin/Dextrose 250 mg/ (Premix) 50 mls @ 50 mls/hr IV Q24H COUNT INCLUDES THE [facility] Last Admin: 01/29/18 17:58 Dose: 50 mls/hr Insulin Aspart (Novolog) 4 unit SUBCUT QAM COUNT INCLUDES THE [facility] Last Admin: 01/30/18 08:37 Dose: 4 units Insulin Aspart (Novolog) 10 unit SUBCUT DAILY@1200 COUNT INCLUDES THE [facility] Last Admin: 01/29/18 11:42 Dose: 10 units Insulin Aspart (Novolog) 0 unit SUBCUT ACBED COUNT INCLUDES THE [facility]; Protocol Insulin Detemir (Levemir) 30 unit SUBCUT QAM COUNT INCLUDES THE [facility] Last Admin: 01/30/18 08:35 Dose: 30 units Isosorbide Mononitrate (Imdur) 60 mg PO DAILY COUNT INCLUDES THE [facility] Last Admin: 01/30/18 08:05 Dose: 60 mg Losartan Potassium (Cozaar) 25 mg PO BEDTIME COUNT INCLUDES THE [facility] Last Admin: 01/29/18 19:33 Dose: 25 mg Multivitamins/Minerals/Vitamin C (Tab-A-Prisca) 1 tab PO DAILY COUNT INCLUDES THE [facility] Last Admin: 01/30/18 07:56 Dose: 1 tab Omeprazole (Omeprazole) 20 mg PO BIDAC COUNT INCLUDES THE [facility] Last Admin: 01/30/18 07:55 Dose: 20 mg Prednisone (Prednisone) 20 mg PO DAILY COUNT INCLUDES THE [facility] Last Admin: 01/30/18 08:06 Dose: 20 mg Sodium Chloride (Saline Flush) 10 ml FLUSH ASDIRECTED PRN PRN Reason: Keep Vein Open Last Admin: 01/30/18 08:18 Dose: 10 ml Sodium Chloride ([place] Nasal [place]) 5 ml NASBOTH ASDIRECTED PRN PRN Reason: Dryness Tamsulosin HCl (Flomax) 0.8 mg PO DAILY COUNT INCLUDES THE [facility] Last Admin: 01/30/18 07:56 Dose: 0.8 mg Vit C/Vit E/Zinc/Copper/Lutein (Ocuvite Lutein) 1 each PO DAILY COUNT INCLUDES THE [facility] Last Admin: 01/30/18 07:55 Dose: 1 each Discontinued Medications Acetaminophen (Tylenol) 650 mg PO Q4H PRN PRN Reason: Pain Last Admin: 01/28/18 16:23 Dose: 650 mg Acetaminophen (Tylenol Extra Strength) 1,000 mg PO Q6HR COUNT INCLUDES THE [facility] Last Admin: 01/29/18 04:50 Dose: 1,000 mg Albuterol (Proventil Neb Soln) 2.5 mg NEB Q4H PRN PRN Reason: Shortness of Breath Albuterol/Ipratropium (Duoneb 3.0-0.5 Mg/3 Ml) 3 ml NEB Q6HRRT PRN PRN Reason: Shortness of Breath Albuterol/Ipratropium (Combivent Respimat) 0 gm INH QID COUNT INCLUDES THE [facility] Last Admin: 01/30/18 08:08 Dose: 1 puff Levofloxacin/Dextrose 500 mg/ (Premix) 100 mls @ 100 mls/hr IV Q24H COUNT INCLUDES THE [facility] Last Admin: 01/28/18 17:46 Dose: 100 mls/hr Insulin Aspart (Novolog) 10 unit SUBCUT QPM COUNT INCLUDES THE [facility] Last Admin: 01/28/18 17:48 Dose: 10 units Insulin Aspart (Novolog) 10 unit SUBCUT ONETIME ONE Stop: 01/29/18 17:01 Last Admin: 01/29/18 17:22 Dose: 10 units Insulin Aspart (Novolog) 8 unit SUBCUT ONETIME ONE Stop: 01/29/18 20:18 Last Admin: 01/29/18 21:00 Dose: 8 units Non-Formulary Medication (Carboxymethylcellulose Sodium [Refresh Tears 0.5%]) 1 drop EYEBOTH QID COUNT INCLUDES THE [facility] Non-Formulary Medication (Guaifenesin [Mucinex]) 1,200 mg PO BID PRN PRN Reason: Cough - Exam Quality Assessment: Supplemental Oxygen, DVT Prophylaxis. No: Central Line/PICC , Urine Catheter, Skin Breakdown, Restraints General: Alert, Oriented, Cooperative, No Acute Distress HEENT: Pupils Equal, Pupils Reactive, EOMI, Mucous Membr. Moist/[place], Other ( Moderate to severe presbycusis) Neck: +2 Carotid Pulse wo Bruit (Mild bilateral carotid bruits) Lungs: Normal Respiratory Effort, Rales (Mild bilateral basilar rales). No: Rhonchi, Rub, Wheezing Cardiovascular: Regular Rate, Regular Rhythm, No Murmurs. No: Murmurs, Gallops , Rubs GI/Abdominal Exam: Normal Bowel Sounds, Soft, Non-Tender, No Organomegaly, No Distention, No Abnormal Bruit, No Mass, Other (Obese). No: Guarding (Male) Exam: Deferred Back Exam: Normal Inspection, Full Range of Motion. No: CVA Tenderness (L), CVA Tenderness (R), Muscle Spasm Extremities: Normal Range of Motion, Non-Tender, Normal Capillary Refill, Pedal Edema (Moderate bilateral lymphedema of the lower extremities with Abundio wraps present). No: Gumaro's Sign Peripheral Pulses: 0: Dorsalis Pedis (L), Dorsalis Pedis (R), 2+: Radial (L), Radial (R) Skin: Warm, Dry, Intact. No: Ecchymosis Neurological: No New Focal Deficit, Other (No clinical orthostasis) Psy/Mental Status: Alert, Normal Affect, Normal Mood. No: Agitated, Hallucinations, Withdrawal Symptoms - Problem List & Annotations (1) Pneumonia SNOMED Code(s): 190884116 Code(s): J18.9 - PNEUMONIA, UNSPECIFIED ORGANISM Status: Acute Priority: High Current Visit: Yes Onset Date: ~01/28/18 Annotation/Comment:: The patient is responding to current antibiotic therapy. Blood cultures 2 negative to this point. Leukocytosis has resolved. Continue aggressive nebulizer treatments, incentive spirometry, etc. [facility] assumes care in the a.m. as below. (2) COPD, Moderate chronic obstructive pulmonary disease SNOMED Code(s): 320822777 Code(s): J44.9 - CHRONIC OBSTRUCTIVE PULMONARY DISEASE, UNSPECIFIED Status : Acute Priority: Medium Current Visit: Yes Annotation/Comment:: Note steroid and O2 dependent COPD. Continue therapy as above. (3) CHF, Congestive heart failure SNOMED Code(s): 14136228 Code(s): I50.9 - HEART FAILURE, UNSPECIFIED Status: Acute Priority: High Current Visit: Yes Annotation/Comment:: Continue IV Lasix therapy. Consider echocardiogram on an outpatient basis depending on his clinical course. No chest pain or anginal type symptoms. Cardiac enzymes and EKG to be conducted in the a.m. as new baseline. Note significant lymphedema of the lower extremities, which is stable by patient history. (4) Dyslipidemia SNOMED Code(s): 233523660 Code(s): E78.5 - HYPERLIPIDEMIA, UNSPECIFIED Status: Chronic Priority: Medium Current Visit: Yes Annotation/Comment:: Currently under therapy (5) GERD (gastroesophageal reflux disease) SNOMED Code(s): 644438234 Code(s): K21.9 - GASTRO-ESOPHAGEAL REFLUX DISEASE WITHOUT ESOPHAGITIS Status: Acute Priority: Medium Current Visit: Yes Qualifiers: Esophagitis presence: without esophagitis Qualified Code(s): K21.9 - Gastro -esophageal reflux disease without esophagitis Annotation/Comment:: No current abdominal complaints. Continue to observe closely. (6) Osteoarthritis SNOMED Code(s): 524262800 Code(s): M19.90 - UNSPECIFIED OSTEOARTHRITIS, UNSPECIFIED SITE Status: Chronic Priority: Medium Current Visit: Yes Qualifiers: Osteoarthritis location: multiple joints Osteoarthritis type: primary Qualified Code(s): M15.0 - Primary generalized (osteo)arthritis Annotation/Comment:: Stable by history (7) Anemia SNOMED Code(s): 473340267 Code(s): D64.9 - ANEMIA, UNSPECIFIED Status: Acute Current Visit: Yes Qualifiers: Anemia type: unspecified type Qualified Code(s): D64.9 - Anemia, unspecified Annotation/Comment:: Known previous history of anemia with iron studies, vitamin B 12 level, and folic acid conducted tomorrow. (8) Chronic kidney disease (CKD) SNOMED Code(s): 000066291 Code(s): N18.9 - CHRONIC KIDNEY DISEASE, UNSPECIFIED Status: Acute Priority: High Current Visit: Yes Qualifiers: Chronic kidney disease stage: unspecified stage Qualified Code(s): N18.9 - Chronic kidney disease, unspecified Annotation/Comment:: History of diabetic nephropathy. Continue to observe closely. (9) Diabetes mellitus SNOMED Code(s): 41284208 Code(s): E11.9 - TYPE 2 DIABETES MELLITUS WITHOUT COMPLICATIONS Status: Chronic Priority: Medium Current Visit: Yes Annotation/Comment:: Glycosylated hemoglobin significantly elevated in the past. Repeat glycosylated hemoglobin in the a.m. Blood sugars have been extremely variable during this hospitalization with initiation of sliding scale to determine new baseline insulin requirement. Note chronic steroid therapy and current infection. - Problem List Review Problem List Initiated/Reviewed/Updated: Yes - My Orders Last 24 Hours: My Active Orders 01/30/18 10:44 RT Aerosol Therapy [RC] ASDIRECTED Albuterol [Proventil Neb Soln] 2.5 mg INH Q2H PRN Albuterol/Ipratropium [DuoNeb 3.0-0.5 MG/3 ML] 3 ml NEB Q4HRRT PRN 01/30/18 10:45 RT Aerosol Therapy [RC] ASDIRECTED 01/30/18 11:30 Insulin Aspart [NovoLOG] See Protocol SUBCUT ACBED 01/30/18 14:00 Albuterol/Ipratropium [DuoNeb 3.0-0.5 MG/3 ML] 3 ml NEB Q6HRRT 01/31/18 03:00 Blood Glucose Check, Bedside [RC] STAT 01/31/18 05:11 EKG Documentation Completion [RC] ASDIRECTED Echo Comp wo Cont [US] Urgent CBC WITH AUTO DIFF [HEME] Routine CK W CKMB [CHEM] Routine COMPREHENSIVE METABOLIC PN,CMP [CHEM] Routine FOLIC ACID [CHEM] Routine GLYCOSYLATED HEMOGLOBIN,HGBA1C [CHEM] Routine IRON/TIBC [CHEM] Routine MAGNESIUM [CHEM] Routine PRO B-TYPE NATRIUR PEPT,BNPPRO [CHEM] Routine TROPONIN I [CHEM] Routine VITAMIN B12 [CHEM] Routine EKG 12 Lead [EK] Routine - Assessment Assessment:: As above - Plan Plan:: As above. Extensive precautions were given to the patient, who is in agreement with the treatment plan. Secondary to communication error I did round on the patient today with the patient apparently normally seen by [facility]. They will assume care in the a.m.
[2018-01-30] MEDS ORDERED: Albuterol 0.083% 2.5 MG/3 ML Neb Soln INH PRN (11:00)
[2018-01-30] MEDS: Acetaminophen 500 MG Tab PO PRN ×2 (12:00→22:06)
[2018-01-30] MEDS: Albuterol/Ipratropium 3.0-0.5 MG/3 ML Neb Soln NEB SCH ×2 (13:33→20:10)
[2018-01-30] MEDS: Levofloxacin/Dextrose 5%-Water 250 MG in Premix Bag 1 BAG IV SCH (18:51)
[2018-01-30] MEDS: Losartan 50 MG Tab PO SCH (20:11)
[2018-01-31] MEDS: Albuterol/Ipratropium 3.0-0.5 MG/3 ML Neb Soln NEB SCH ×3 (01:07→14:54)
[2018-01-31] MEDS: Sodium Chloride 0.9% 10 ML Syringe FLUSH PRN ×2 (04:18→11:31)
[2018-01-31] MEDS: Piperacillin/Tazobactam 3.375 GM in Sodium Chloride 0.9% 100 ML IV SCH ×2 (04:18→11:25)
[2018-01-31] MEDS: Polyvinyl Alcohol 1.4% Ophth Soln 15 ML Bottle EYEBOTH SCH ×2 (07:32→11:26)
[2018-01-31] MEDS: Budesonide 0.5 MG/2 ML Neb Susp INH SCH (07:32)
[2018-01-31] MEDS: Arformoterol 15 MCG/2 ML Neb Soln INH SCH (07:32)
[2018-01-31] MEDS: Enoxaparin 40 MG/0.4 ML Syringe SUBCUT SCH (07:33)
[2018-01-31] MEDS: Gabapentin 300 MG Cap PO SCH ×2 (07:34→11:25)
[2018-01-31] MEDS: Allopurinol 100 MG Tab PO SCH (07:34)
[2018-01-31] MEDS: Omeprazole 20 MG Cap.CR PO SCH (07:34)
[2018-01-31] MEDS: Lutein/Minerals/Vitamin C/Vitamin E Acetate Cap PO SCH (07:34)
[2018-01-31] MEDS: Isosorbide Mononitrate 60 MG Tab.ER PO SCH (07:34)
[2018-01-31] MEDS: predniSONE 20 MG Tab PO SCH (07:34)
[2018-01-31] MEDS: Tamsulosin 0.4 MG Cap.ER PO SCH (07:34)
[2018-01-31] MEDS: Carvedilol 6.25 MG Tab PO SCH (07:34)
[2018-01-31] MEDS: Cholecalciferol (Vitamin D3) 1,000 Unit Tab PO SCH (07:35)
[2018-01-31] MEDS: Multivitamin Tab PO SCH (07:38)
[2018-01-31] MEDS: Aspirin 81 MG Tab.Chew PO SCH (07:38)
[2018-01-31] MEDS: Furosemide 40 MG/4 ML VIAL IVPUSH SCH (07:38)
[2018-01-31] MEDS: Insulin Detemir 100 Units/ML 3 ML Pen SUBCUT SCH (07:38)
[2018-01-31] MEDS: Insulin Aspart 100 Units/ML 3 ML Pen SUBCUT SCH ×2 (07:40→11:26)
--- NOTE | 2018-01-31 11:11 | PCM.DCSUM1 ---
Discharge Summary - Hospital Course Free Text/Narrative:: Patient is a 77-year-old who was admitted through the ER with severe shortness of breath diagnosed with COPD x-ray reveals small improvement but patient is still breathing heavily at this time family is unable to take care of him we will go ahead and swim for IV steroids and switch him over to by mouth and continue treating his COPD Diagnosis: Stroke: No - Discharge Data Discharge Date: 01/31/18 Discharge Disposition: DC/Tfer W/I Hosp To Swing 61 Condition: Good - Discharge Diagnosis/Problem(s) (1) Pneumonia SNOMED Code(s): 378171901 ICD Code: J18.9 - PNEUMONIA, UNSPECIFIED ORGANISM Status: Acute Current Visit: No Problem Details: Pneumonia improving; breathing easier but still not back to baseline- we'll continue antibiotic; patient going to SWB status today. Qualifiers: Pneumonia type: due to unspecified organism Laterality: left Lung location: lower lobe of lung (2) CHF, Congestive heart failure SNOMED Code(s): 86889370 ICD Code: I50.9 - HEART FAILURE, UNSPECIFIED Status: Acute Priority: High Current Visit: Yes Problem Details: Denies chest pain. Echo ordered. (3) Anemia due to medication SNOMED Code(s): 983345409 ICD Code: D64.89 - OTHER SPECIFIED ANEMIAS Status: Acute Priority: Medium Current Visit: No (4) HTN, Benign hypertension SNOMED Code(s): 09068122 ICD Code: I10 - ESSENTIAL (PRIMARY) HYPERTENSION Status: Acute Priority: High Current Visit: No Problem Details: Blood pressures under good control (5) Diabetes mellitus SNOMED Code(s): 64504901 ICD Code: E11.9 - TYPE 2 DIABETES MELLITUS WITHOUT COMPLICATIONS Status: Chronic Priority: Medium Current Visit: Yes Problem Details: Will continue to monitor in SWB status. - Discharge Plan Home Medications: Home Meds Arformoterol [Brovana] 2 ml INH BID 05/04/14 [History] Aspirin [Jaswinder Chewable Aspirin] 81 mg PO DAILY 05/04/14 [History] Budesonide [Pulmicort] 2 ml INH BID 05/04/14 [History] Calcium Carbonate [Tums Extra Strength] 750 mg PO QID PRN 05/04/14 [History] Furosemide 40 mg PO BID 05/04/14 [History] Gabapentin [Neurontin] 300 mg PO TID 05/04/14 [History] Multivitamin [Multivitamins] 1 tab PO DAILY 05/04/14 [History] Omeprazole 20 mg PO BID 05/04/14 [History] Albuterol/Ipratropium [Combivent Respimat] 1 puff INH QID 06/29/16 [History] Carboxymethylcellulose Sodium [Refresh Tears 0.5%] 1 drop EYEBOTH QID 06/29/16 [ History] Insulin Detemir [Levemir Flextouch] 30 units SUBCUT QAM 06/29/16 [History] Albuterol Sulfate 2.5 mg NEB Q4H PRN 10/19/16 [History] Isosorbide Mononitrate [Imdur] 60 mg PO DAILY 10/26/16 [History] Allopurinol [Zyloprim] 300 mg PO QAM 06/13/17 [History] Cholecalciferol (Vitamin D3) [Vitamin D3] 2,000 unit PO DAILY 06/13/17 [History] predniSONE [Prednisone] 20 mg PO DAILY 06/13/17 [History] Carvedilol 6.25 mg PO BID 10/19/17 [History] Hydrocortisone [Preparation H] 1 applic RECTAL BID PRN 10/19/17 [History] Insulin Aspart [NovoLOG] 4 unit SUBCUT QAM 10/19/17 [History] Insulin Aspart [NovoLOG] 10 units SUBCUT 1200 10/19/17 [History] Losartan [Cozaar] 25 mg PO BEDTIME 10/19/17 [History] Tamsulosin [Flomax] 0.8 mg PO DAILY 10/19/17 [History] hydrOXYzine Pamoate [Hydroxyzine Pamoate] 25 mg PO TID PRN 10/19/17 [History] Docusate Sodium [Colace] 100 mg PO TID PRN 12/28/17 [History] Non-Formulary Medication [NF Drug] 1 tab PO DAILY 01/28/18 [History] Sodium Chloride [[place]] 5 ml NS ASDIRECTED PRN 01/28/18 [History] guaiFENesin [Mucinex] 1,200 mg PO BID PRN 01/28/18 [History] Acetaminophen 1,000 mg PO Q6HR PRN 01/29/18 [History] Forms: ED Department Discharge Referrals: Tr Newman PA [Physician Test Preparer] - - Discharge Summary/Plan Comment DC Time >30 min.: Yes (45) - General Info Date of Service: 01/31/18 - Review of Systems General: Reports: Weakness HEENT: Reports: No Symptoms Pulmonary: Reports: Shortness of Breath Cardiovascular: Denies: Chest Pain Gastrointestinal: Reports: No Symptoms Genitourinary: Reports: No Symptoms Musculoskeletal: Reports: No Symptoms Skin: Reports: No Symptoms Neurological: Reports: No Symptoms Psychiatric: Reports: No Symptoms - Patient Data Vitals - Most Recent: Last Vital Signs Temp 97 F 01/31/18 06:50 Pulse 76 01/31/18 07:34 Resp 15 01/31/18 06:50 BP 139/72 01/31/18 07:34 Pulse Ox 76 L 01/31/18 06:50 Weight - Most Recent: 291 lb 4.784 oz I&O - Last 24 hours: Intake & Output 01/30/18 01/31/18 01/31/18 22:59 06:59 14:59 Intake Total 250 200 600 Output Total 800 250 Balance -550 -50 600 Lab Results - Last 24 hrs: Laboratory Results - last 24 hr 01/30/18 01/30/18 01/30/18 Range/Units 11:25 16:49 20:13 WBC (4.0-10.2) K/uL RBC (4.33-5.41) M/uL Hgb (13.1-16.8) g/dL Hct (39.0-49.0) % MCV (84.0-98.0) fL MCH (28.2-33.3) pg MCHC (31.7-36.0) g/dL RDW (11.2-14.1) % Plt Count (150-350) K/uL Neut % (Auto) (45.0-80.0) % Lymph % (Auto) (10.0-50.0) % [place] % (Auto) (2.0-14.0) % Eos % (Auto) (0.0-5.0) % Baso % (Auto) (0.0-2.0) % Neut # (Auto) (1.40-7.00) K/uL Lymph # (Auto) (0.50-3.50) K/uL [place] # (Auto) (0.00-1.00) K/uL Eos # (Auto) (0.00-0.50) K/uL Baso # (Auto) (0.00-0.20) K/uL Sodium (136-145) mmol/L Potassium (3.5-5.1) mmol/L Chloride (98-107) mmol/L Carbon Dioxide (21.0-32.0) mmol/L BUN (7-18) mg/dL Creatinine (0.51-1.17) mg/dL Est Cr Clr Drug Dosing mL/min Estimated GFR (MDRD) mL/min Glucose (74-106) mg/dL POC Glucose 206 H 349 H* 344 H* (65-110) mg/dl Hemoglobin A1c (4.3-5.7) % Calcium (8.5-10.1) mg/dL Magnesium (1.8-2.4) mg/dL Iron (50-175) ug/dL TIBC (250-450) ug/dL % Saturation Total Bilirubin (0.2-1.0) mg/dL AST (15-37) U/L ALT (12-78) U/L Alkaline Phosphatase (46-116) IU/L Creatine Kinase (26-308) U/L Creatine Kinase Index (0.0-2.5) % CK-MB (CK-2) (0.00-3.60) ng/mL Troponin I (0.000-0.056) ng/mL NT-Pro-B Natriuret Pep (0-125) pg/mL Total Protein (6.4-8.2) g/dL Albumin (3.4-5.0) g/dL Vitamin B12 (193-986) pg/mL Folate (8.6-58.9) ng/mL 01/31/18 01/31/18 01/31/18 Range/Units 04:20 06:50 06:50 WBC 10.0 (4.0-10.2) K/uL RBC 2.53 L (4.33-5.41) M/uL Hgb 9.1 L (13.1-16.8) g/dL Hct 28.1 L (39.0-49.0) % MCV 111.1 H (84.0-98.0) fL MCH 36.0 H (28.2-33.3) pg MCHC 32.4 (31.7-36.0) g/dL RDW 15.1 H (11.2-14.1) % Plt Count 180 (150-350) K/uL Neut % (Auto) 66.6 (45.0-80.0) % Lymph % (Auto) 18.3 (10.0-50.0) % [place] % (Auto) 12.7 (2.0-14.0) % Eos % (Auto) 2.1 (0.0-5.0) % Baso % (Auto) 0.3 (0.0-2.0) % Neut # (Auto) 6.68 (1.40-7.00) K/uL Lymph # (Auto) 1.84 (0.50-3.50) K/uL [place] # (Auto) 1.27 H (0.00-1.00) K/uL Eos # (Auto) 0.21 (0.00-0.50) K/uL Baso # (Auto) 0.03 (0.00-0.20) K/uL Sodium 137 (136-145) mmol/L Potassium 3.6 (3.5-5.1) mmol/L Chloride 101 (98-107) mmol/L Carbon Dioxide 27.6 (21.0-32.0) mmol/L BUN 34 H (7-18) mg/dL Creatinine 1.45 H (0.51-1.17) mg/dL Est Cr Clr Drug Dosing 43.82 mL/min Estimated GFR (MDRD) 47 mL/min Glucose 157 H (74-106) mg/dL POC Glucose 156 H (65-110) mg/dl Hemoglobin A1c (4.3-5.7) % Calcium 9.4 (8.5-10.1) mg/dL Magnesium 2.0 (1.8-2.4) mg/dL Iron (50-175) ug/dL TIBC (250-450) ug/dL % Saturation Total Bilirubin 0.3 (0.2-1.0) mg/dL AST 21 (15-37) U/L ALT 32 (12-78) U/L Alkaline Phosphatase 55 (46-116) IU/L Creatine Kinase 50 (26-308) U/L Creatine Kinase Index 3.0 H (0.0-2.5) % CK-MB (CK-2) 1.50 (0.00-3.60) ng/mL Troponin I 0.000 (0.000-0.056) ng/mL NT-Pro-B Natriuret Pep 150 H (0-125) pg/mL Total Protein 5.9 L (6.4-8.2) g/dL Albumin 2.5 L (3.4-5.0) g/dL Vitamin B12 74 L (193-986) pg/mL Folate 22.7 (8.6-58.9) ng/mL 01/31/18 01/31/18 01/31/18 Range/Units 06:50 06:50 07:03 WBC (4.0-10.2) K/uL RBC (4.33-5.41) M/uL Hgb (13.1-16.8) g/dL Hct (39.0-49.0) % MCV (84.0-98.0) fL MCH (28.2-33.3) pg MCHC (31.7-36.0) g/dL RDW (11.2-14.1) % Plt Count (150-350) K/uL Neut % (Auto) (45.0-80.0) % Lymph % (Auto) (10.0-50.0) % [place] % (Auto) (2.0-14.0) % Eos % (Auto) (0.0-5.0) % Baso % (Auto) (0.0-2.0) % Neut # (Auto) (1.40-7.00) K/uL Lymph # (Auto) (0.50-3.50) K/uL [place] # (Auto) (0.00-1.00) K/uL Eos # (Auto) (0.00-0.50) K/uL Baso # (Auto) (0.00-0.20) K/uL Sodium (136-145) mmol/L Potassium (3.5-5.1) mmol/L Chloride (98-107) mmol/L Carbon Dioxide (21.0-32.0) mmol/L BUN (7-18) mg/dL Creatinine (0.51-1.17) mg/dL Est Cr Clr Drug Dosing mL/min Estimated GFR (MDRD) mL/min Glucose (74-106) mg/dL POC Glucose 140 H (65-110) mg/dl Hemoglobin A1c 9.7 H (4.3-5.7) % Calcium (8.5-10.1) mg/dL Magnesium (1.8-2.4) mg/dL Iron 46 L (50-175) ug/dL TIBC 237 L (250-450) ug/dL % Saturation 19.08376 Total Bilirubin (0.2-1.0) mg/dL AST (15-37) U/L ALT (12-78) U/L Alkaline Phosphatase (46-116) IU/L Creatine Kinase (26-308) U/L Creatine Kinase Index (0.0-2.5) % CK-MB (CK-2) (0.00-3.60) ng/mL Troponin I (0.000-0.056) ng/mL NT-Pro-B Natriuret Pep (0-125) pg/mL Total Protein (6.4-8.2) g/dL Albumin (3.4-5.0) g/dL Vitamin B12 (193-986) pg/mL Folate (8.6-58.9) ng/mL EMERY Results - Last 24 hrs: Microbiology 01/28/18 18:59 Aerobic Blood Culture - Preliminary Blood - Venous - Lab Draw NO GROWTH AFTER 2 DAYS Anaerobic Blood Culture - Preliminary NO GROWTH AFTER 2 DAYS 01/28/18 18:50 Aerobic Blood Culture - Preliminary Blood - Venous NO GROWTH AFTER 2 DAYS Anaerobic Blood Culture - Preliminary NO GROWTH AFTER 2 DAYS Med Orders - Current: Current Medications Acetaminophen (Tylenol Extra Strength) 1,000 mg PO Q6HR PRN PRN Reason: Pain Last Admin: 01/30/18 22:06 Dose: 1,000 mg Albuterol (Proventil Neb Soln) 2.5 mg INH Q2H PRN PRN Reason: SHORTNESS OF BREATH Albuterol/Ipratropium (Duoneb 3.0-0.5 Mg/3 Ml) 3 ml NEB Q4HRRT PRN PRN Reason: Dyspnea Albuterol/Ipratropium (Duoneb 3.0-0.5 Mg/3 Ml) 3 ml NEB Q6HRRT SALOMÓN Last Admin: 01/31/18 07:33 Dose: 3 ml Allopurinol (Zyloprim) 300 mg PO QAM REPLACED BY [facility] Last Admin: 01/31/18 07:34 Dose: 300 mg Arformoterol Tartrate (Brovana) 15 mcg INH BID REPLACED BY [facility] Last Admin: 01/31/18 07:32 Dose: 15 mcg Artificial Tears (Liquitears 1.4% Ophth Soln) 0 ml EYEBOTH TID@0800,1200,2000 REPLACED BY [facility] Last Admin: 01/31/18 07:32 Dose: 2 drop Aspirin (Aspirin) 81 mg PO DAILY REPLACED BY [facility] Last Admin: 01/31/18 07:38 Dose: 81 mg Budesonide (Pulmicort) 0.5 mg INH BID REPLACED BY [facility] Last Admin: 01/31/18 07:32 Dose: 0.5 mg Calcium Carbonate/Glycine (Tums Extra Strength) 750 mg PO QID PRN PRN Reason: Heartburn Carvedilol (Coreg) 6.25 mg PO BID REPLACED BY [facility] Last Admin: 01/31/18 07:34 Dose: 6.25 mg Cholecalciferol (Vitamin D3) 2,000 units PO DAILY REPLACED BY [facility] Last Admin: 01/31/18 07:35 Dose: 2,000 units Docusate Sodium (Colace) 100 mg PO TID PRN PRN Reason: Constipation Enoxaparin Sodium (Lovenox) 40 mg SUBCUT DAILY REPLACED BY [facility] Last Admin: 01/31/18 07:33 Dose: 40 mg Furosemide (Lasix) 40 mg IVPUSH DAILY REPLACED BY [facility] Last Admin: 01/31/18 07:38 Dose: 40 mg Gabapentin (Neurontin) 300 mg PO TID REPLACED BY [facility] Last Admin: 01/31/18 07:34 Dose: 300 mg Guaifenesin (Mucinex) 1,200 mg PO BID PRN PRN Reason: Cough Hydroxyzine Pamoate (Vistaril) 25 mg PO TID PRN PRN Reason: Other Piperacillin Sod/Tazobactam (Sod 3.375 gm/ Sodium Chloride) 100 mls @ 200 mls/ hr IV Q6H REPLACED BY [facility] Last Admin: 01/31/18 04:18 Dose: 200 mls/hr Levofloxacin/Dextrose 250 mg/ (Premix) 50 mls @ 50 mls/hr IV Q24H REPLACED BY [facility] Last Admin: 01/30/18 18:51 Dose: 50 mls/hr Insulin Aspart (Novolog) 0 unit SUBCUT ACBED REPLACED BY [facility]; Protocol Last Admin: 01/31/18 07:40 Dose: Not Given Insulin Detemir (Levemir) 30 unit SUBCUT QAM REPLACED BY [facility] Last Admin: 01/31/18 07:38 Dose: 30 units Isosorbide Mononitrate (Imdur) 60 mg PO DAILY REPLACED BY [facility] Last Admin: 01/31/18 07:34 Dose: 60 mg Losartan Potassium (Cozaar) 25 mg PO BEDTIME REPLACED BY [facility] Last Admin: 01/30/18 20:11 Dose: 25 mg Multivitamins/Minerals/Vitamin C (Tab-A-Prisca) 1 tab PO DAILY REPLACED BY [facility] Last Admin: 01/31/18 07:38 Dose: 1 tab Omeprazole (Omeprazole) 20 mg PO BIDAC REPLACED BY [facility] Last Admin: 01/31/18 07:34 Dose: 20 mg Prednisone (Prednisone) 20 mg PO DAILY REPLACED BY [facility] Last Admin: 01/31/18 07:34 Dose: 20 mg Sodium Chloride (Saline Flush) 10 ml FLUSH ASDIRECTED PRN PRN Reason: Keep Vein Open Last Admin: 01/31/18 04:18 Dose: 10 ml Sodium Chloride ([place] Nasal [place]) 5 ml NASBOTH ASDIRECTED PRN PRN Reason: Dryness Tamsulosin HCl (Flomax) 0.8 mg PO DAILY REPLACED BY [facility] Last Admin: 01/31/18 07:34 Dose: 0.8 mg Vit C/Vit E/Zinc/Copper/Lutein (Ocuvite Lutein) 1 each PO DAILY REPLACED BY [facility] Last Admin: 01/31/18 07:34 Dose: 1 each Discontinued Medications Acetaminophen (Tylenol) 650 mg PO Q4H PRN PRN Reason: Pain Last Admin: 01/28/18 16:23 Dose: 650 mg Acetaminophen (Tylenol Extra Strength) 1,000 mg PO Q6HR REPLACED BY [facility] Last Admin: 01/29/18 04:50 Dose: 1,000 mg Albuterol (Proventil Neb Soln) 2.5 mg NEB Q4H PRN PRN Reason: Shortness of Breath Albuterol/Ipratropium (Duoneb 3.0-0.5 Mg/3 Ml) 3 ml NEB Q6HRRT PRN PRN Reason: Shortness of Breath Albuterol/Ipratropium (Combivent Respimat) 0 gm INH QID REPLACED BY [facility] Last Admin: 01/30/18 08:08 Dose: 1 puff Levofloxacin/Dextrose 500 mg/ (Premix) 100 mls @ 100 mls/hr IV Q24H REPLACED BY [facility] Last Admin: 01/28/18 17:46 Dose: 100 mls/hr Insulin Aspart (Novolog) 4 unit SUBCUT QAM REPLACED BY [facility] Last Admin: 01/30/18 08:37 Dose: 4 units Insulin Aspart (Novolog) 10 unit SUBCUT QPM REPLACED BY [facility] Last Admin: 01/28/18 17:48 Dose: 10 units Insulin Aspart (Novolog) 10 unit SUBCUT DAILY@1200 REPLACED BY [facility] Last Admin: 01/29/18 11:42 Dose: 10 units Insulin Aspart (Novolog) 10 unit SUBCUT ONETIME ONE Stop: 01/29/18 17:01 Last Admin: 01/29/18 17:22 Dose: 10 units Insulin Aspart (Novolog) 8 unit SUBCUT ONETIME ONE Stop: 01/29/18 20:18 Last Admin: 01/29/18 21:00 Dose: 8 units Non-Formulary Medication (Carboxymethylcellulose Sodium [Refresh Tears 0.5%]) 1 drop EYEBOTH QID REPLACED BY [facility] Non-Formulary Medication (Guaifenesin [Mucinex]) 1,200 mg PO BID PRN PRN Reason: Cough - Exam General: Reports: Alert, Oriented HEENT: Reports: Pupils Equal, Pupils Reactive, EOMI, Mucous Membr. Moist/[place] Neck: Reports: Supple Lungs: Reports: Rales (bilateral bases), Wheezing Cardiovascular: Reports: Regular Rate, Regular Rhythm GI/Abdominal Exam: Normal Bowel Sounds, Soft, Non-Tender, No Organomegaly, No Distention, No Abnormal Bruit, No Mass, Pelvis Stable (Male) Exam: Deferred Rectal (Males) Exam: Deferred Back Exam: Reports: Normal Inspection, Full Range of Motion Extremities: Normal Inspection, Normal Range of Motion, Non-Tender, No Pedal Edema, Normal Capillary Refill Skin: Reports: Warm, Dry, Intact Neurological: Reports: No New Focal Deficit Psy/Mental Status: Reports: Alert, Normal Affect, Normal Mood
[2018-01-31 15:45] VITALS: BP 117/63
== END 2018-01-31 15:10 | disposition swing bed (61) | DRG 190 ==
LOC: LL.ED 11:58 → UNDOADMIN 13:20 → LL.MS 13:20 → UNDOADMIN 01-30 14:07 → LL.MS 01-30 14:07
PROVIDERS: ADMIT Family Medicine; ATTEND Family Medicine
DX: J44.0 Chronic obstructive pulmonary disease with (acute) lower respiratory infection (principal); J18.9 Pneumonia, unspecified organism; I13.0 Hypertensive heart and chronic kidney disease with heart failure and stage 1 through stage 4 chronic kidney disease, or unspecified chronic kidney disease; I42.9 Cardiomyopathy, unspecified; J44.1 Chronic obstructive pulmonary disease with (acute) exacerbation; I11.0 Hypertensive heart disease with heart failure; I50.9 Heart failure, unspecified; H54.7 Unspecified visual loss; K44.9 Diaphragmatic hernia without obstruction or gangrene; M81.0 Age-related osteoporosis without current pathological fracture; K21.9 Gastro-esophageal reflux disease without esophagitis; N40.0 Benign prostatic hyperplasia without lower urinary tract symptoms; D64.9 Anemia, unspecified; Z91.81 History of falling; E78.5 Hyperlipidemia, unspecified; E11.22 Type 2 diabetes mellitus with diabetic chronic kidney disease; N18.9 Chronic kidney disease, unspecified; E11.319 Type 2 diabetes mellitus with unspecified diabetic retinopathy without macular edema; H91.13 Presbycusis, bilateral; H81.02 Meniere's disease, left ear; I25.10 Atherosclerotic heart disease of native coronary artery without angina pectoris; Z82.49 Family history of ischemic heart disease and other diseases of the circulatory system; H35.30 Unspecified macular degeneration; E11.42 Type 2 diabetes mellitus with diabetic polyneuropathy; D64.89 Other specified anemias; M15.0 Primary generalized (osteo)arthritis; Z99.81 Dependence on supplemental oxygen; Z87.891 Personal history of nicotine dependence; Z87.01 Personal history of pneumonia (recurrent); Z88.8 Allergy status to other drugs, medicaments and biological substances; Z79.82 Long term (current) use of aspirin; Z79.4 Long term (current) use of insulin; Z79.899 Other long term (current) drug therapy; Z79.52 Long term (current) use of systemic steroids
CPT/HCPCS: 36415; 71045; 71046; 80048; 80053; 82550; 82553; 82607; 82746; 82962; 83036; 83540; 83550; 83735; 83880; 84484; 85025; 85027; 87040; 93005; 94640; 94664; 99285; A9270-GY; J1650; J1815-GY; J1940; J1956; J2543; J7050

== ENCOUNTER 2018-01-31 11:17 | Inpatient (IN) | payer MEDICARE, BC ==
[2018-01-31] MEDS ORDERED: hydrOXYzine Pamoate 25 MG Cap PO PRN (11:20)
[2018-01-31] MEDS ORDERED: Albuterol/Ipratropium 3.0-0.5 MG/3 ML Neb Soln NEB PRN (11:20)
[2018-01-31] MEDS ORDERED: Calcium Carbonate 750 MG Tab.Chew PO PRN (11:20)
[2018-01-31] MEDS ORDERED: guaiFENesin 600 MG Tab.ER PO PRN (11:20)
[2018-01-31] MEDS ORDERED: Sodium Chloride 0.65% Nasal Spray 45 ML Bottle NASBOTH PRN (11:20)
[2018-01-31] MEDS ORDERED: Docusate Sodium 100 MG Cap PO PRN (11:20)
--- NOTE | 2018-01-31 11:26 | PCM.SN ---
- Free Text/Narrative Note: Please use discharge summary from acute stay for admission H & P
[2018-01-31] MEDS ORDERED: Albuterol 0.083% 2.5 MG/3 ML Neb Soln INH PRN (12:00)
[2018-01-31] MEDS: Acetaminophen 500 MG Tab PO PRN ×2 (16:22→23:31)
[2018-01-31] MEDS: Carvedilol 6.25 MG Tab PO SCH (17:26)
[2018-01-31] MEDS: Omeprazole 20 MG Cap.CR PO SCH (17:26)
[2018-01-31] MEDS: Gabapentin 300 MG Cap PO SCH ×2 (17:26→17:27)
[2018-01-31] MEDS: Piperacillin/Tazobactam 3.375 GM in Sodium Chloride 0.9% 100 ML IV SCH ×2 (17:27→23:24)
[2018-01-31] MEDS: Insulin Aspart 100 Units/ML 3 ML Pen SUBCUT SCH ×3 (17:28→20:39)
[2018-01-31] MEDS: Budesonide 0.5 MG/2 ML Neb Susp INH SCH (17:29)
[2018-01-31] MEDS: Arformoterol 15 MCG/2 ML Neb Soln INH SCH (17:29)
[2018-01-31] MEDS: Sodium Chloride 0.9% 10 ML Syringe FLUSH PRN ×2 (17:30→23:24)
[2018-01-31] MEDS: Polyvinyl Alcohol 1.4% Ophth Soln 15 ML Bottle EYEBOTH SCH ×2 (18:58→20:39)
[2018-01-31] MEDS: Albuterol/Ipratropium 3.0-0.5 MG/3 ML Neb Soln NEB SCH ×2 (18:58→20:39)
[2018-01-31] MEDS: Losartan 50 MG Tab PO SCH (20:39)
[2018-02-01] MEDS: Albuterol/Ipratropium 3.0-0.5 MG/3 ML Neb Soln NEB SCH ×4 (02:21→20:41)
[2018-02-01] MEDS: Piperacillin/Tazobactam 3.375 GM in Sodium Chloride 0.9% 100 ML IV SCH ×4 (05:07→23:39)
[2018-02-01] MEDS: Sodium Chloride 0.9% 10 ML Syringe FLUSH PRN ×3 (05:07→23:41)
[2018-02-01] MEDS: Budesonide 0.5 MG/2 ML Neb Susp INH SCH ×2 (07:33→17:36)
[2018-02-01] MEDS: Arformoterol 15 MCG/2 ML Neb Soln INH SCH ×2 (07:33→17:36)
[2018-02-01] MEDS: predniSONE 20 MG Tab PO SCH (08:53)
[2018-02-01] MEDS: Isosorbide Mononitrate 60 MG Tab.ER PO SCH (08:54)
[2018-02-01] MEDS: Lutein/Minerals/Vitamin C/Vitamin E Acetate Cap PO SCH (08:55)
[2018-02-01] MEDS: Allopurinol 100 MG Tab PO SCH (08:55)
[2018-02-01] MEDS: Gabapentin 300 MG Cap PO SCH ×3 (08:56→17:29)
[2018-02-01] MEDS: Aspirin 81 MG Tab.Chew PO SCH (08:57)
[2018-02-01] MEDS: Cholecalciferol (Vitamin D3) 1,000 Unit Tab PO SCH (08:57)
[2018-02-01] MEDS: Multivitamin Tab PO SCH (08:58)
[2018-02-01] MEDS: Carvedilol 6.25 MG Tab PO SCH ×2 (08:59→17:35)
[2018-02-01] MEDS: Omeprazole 20 MG Cap.CR PO SCH ×2 (09:00→17:29)
[2018-02-01] MEDS: Tamsulosin 0.4 MG Cap.ER PO SCH (09:00)
[2018-02-01] MEDS: Polyvinyl Alcohol 1.4% Ophth Soln 15 ML Bottle EYEBOTH SCH ×3 (09:01→20:42)
[2018-02-01] MEDS: Insulin Aspart 100 Units/ML 3 ML Pen SUBCUT SCH ×4 (09:07→21:04)
[2018-02-01] MEDS: Insulin Detemir 100 Units/ML 3 ML Pen SUBCUT SCH (09:07)
[2018-02-01] MEDS: Enoxaparin 40 MG/0.4 ML Syringe SUBCUT SCH (09:09)
[2018-02-01] MEDS: Furosemide 40 MG/4 ML VIAL IVPUSH SCH (09:11)
[2018-02-01] MEDS: Acetaminophen 500 MG Tab PO PRN ×2 (15:03→21:11)
[2018-02-01] MEDS: Levofloxacin/Dextrose 5%-Water 500 MG in Premix Bag 1 BAG IV SCH (18:22)
[2018-02-01] MEDS: Losartan 50 MG Tab PO SCH (20:41)
[2018-02-02] MEDS: Albuterol/Ipratropium 3.0-0.5 MG/3 ML Neb Soln NEB SCH ×4 (02:03→20:15)
[2018-02-02] MEDS: Piperacillin/Tazobactam 3.375 GM in Sodium Chloride 0.9% 100 ML IV SCH ×4 (06:14→23:16)
[2018-02-02] MEDS: Sodium Chloride 0.9% 10 ML Syringe FLUSH PRN ×6 (06:18→23:17)
[2018-02-02] MEDS: Insulin Aspart 100 Units/ML 3 ML Pen SUBCUT SCH ×4 (07:40→20:16)
[2018-02-02] MEDS: Omeprazole 20 MG Cap.CR PO SCH ×2 (07:42→17:36)
[2018-02-02] MEDS: Carvedilol 6.25 MG Tab PO SCH ×2 (07:42→17:36)
[2018-02-02] MEDS: Aspirin 81 MG Tab.Chew PO SCH (07:42)
[2018-02-02] MEDS: Tamsulosin 0.4 MG Cap.ER PO SCH (07:44)
[2018-02-02] MEDS: Isosorbide Mononitrate 60 MG Tab.ER PO SCH (07:44)
[2018-02-02] MEDS: Lutein/Minerals/Vitamin C/Vitamin E Acetate Cap PO SCH (07:45)
[2018-02-02] MEDS: predniSONE 20 MG Tab PO SCH (07:45)
[2018-02-02] MEDS: Gabapentin 300 MG Cap PO SCH ×3 (07:45→17:36)
[2018-02-02] MEDS: Allopurinol 100 MG Tab PO SCH (07:46)
[2018-02-02] MEDS: Multivitamin Tab PO SCH (07:46)
[2018-02-02] MEDS: Cholecalciferol (Vitamin D3) 1,000 Unit Tab PO SCH (07:46)
[2018-02-02] MEDS: Arformoterol 15 MCG/2 ML Neb Soln INH SCH ×2 (08:09→17:37)
[2018-02-02] MEDS: Budesonide 0.5 MG/2 ML Neb Susp INH SCH ×2 (08:09→17:37)
[2018-02-02] MEDS: Polyvinyl Alcohol 1.4% Ophth Soln 15 ML Bottle EYEBOTH SCH ×3 (08:10→20:15)
[2018-02-02] MEDS: Insulin Detemir 100 Units/ML 3 ML Pen SUBCUT SCH (08:10)
[2018-02-02] MEDS: Enoxaparin 40 MG/0.4 ML Syringe SUBCUT SCH (08:12)
[2018-02-02] MEDS: Furosemide 40 MG/4 ML VIAL IVPUSH SCH (08:14)
[2018-02-02] MEDS: Acetaminophen 500 MG Tab PO PRN ×2 (08:29→20:44)
[2018-02-02] MEDS: Losartan 50 MG Tab PO SCH (20:14)
[2018-02-03] MEDS: Albuterol/Ipratropium 3.0-0.5 MG/3 ML Neb Soln NEB SCH ×4 (03:06→20:36)
[2018-02-03] MEDS: Piperacillin/Tazobactam 3.375 GM in Sodium Chloride 0.9% 100 ML IV SCH ×3 (04:14→17:12)
[2018-02-03] MEDS: Sodium Chloride 0.9% 10 ML Syringe FLUSH PRN ×3 (04:15→10:37)
[2018-02-03] MEDS: Omeprazole 20 MG Cap.CR PO SCH ×2 (07:46→17:21)
[2018-02-03] MEDS: Carvedilol 6.25 MG Tab PO SCH ×2 (07:47→18:00)
[2018-02-03] MEDS: Furosemide 40 MG/4 ML VIAL IVPUSH SCH (07:47)
[2018-02-03] MEDS: Arformoterol 15 MCG/2 ML Neb Soln INH SCH ×2 (07:47→17:21)
[2018-02-03] MEDS: Insulin Aspart 100 Units/ML 3 ML Pen SUBCUT SCH ×4 (07:47→20:38)
[2018-02-03] MEDS: Insulin Detemir 100 Units/ML 3 ML Pen SUBCUT SCH (07:47)
[2018-02-03] MEDS: Aspirin 81 MG Tab.Chew PO SCH (07:47)
[2018-02-03] MEDS: Isosorbide Mononitrate 60 MG Tab.ER PO SCH (07:47)
[2018-02-03] MEDS: Tamsulosin 0.4 MG Cap.ER PO SCH (07:47)
[2018-02-03] MEDS: Budesonide 0.5 MG/2 ML Neb Susp INH SCH ×2 (07:48→17:21)
[2018-02-03] MEDS: Multivitamin Tab PO SCH (07:48)
[2018-02-03] MEDS: predniSONE 20 MG Tab PO SCH (07:48)
[2018-02-03] MEDS: Gabapentin 300 MG Cap PO SCH ×3 (07:48→17:21)
[2018-02-03] MEDS: Enoxaparin 40 MG/0.4 ML Syringe SUBCUT SCH (07:48)
[2018-02-03] MEDS: Cholecalciferol (Vitamin D3) 1,000 Unit Tab PO SCH (07:48)
[2018-02-03] MEDS: Allopurinol 100 MG Tab PO SCH (07:48)
[2018-02-03] MEDS: Lutein/Minerals/Vitamin C/Vitamin E Acetate Cap PO SCH (07:48)
[2018-02-03] MEDS: Polyvinyl Alcohol 1.4% Ophth Soln 15 ML Bottle EYEBOTH SCH ×3 (07:48→21:18)
[2018-02-03] MEDS: Acetaminophen 500 MG Tab PO PRN ×2 (10:36→20:35)
[2018-02-03] MEDS: Levofloxacin/Dextrose 5%-Water 500 MG in Premix Bag 1 BAG IV SCH (18:00)
[2018-02-03] MEDS: Losartan 50 MG Tab PO SCH (20:39)
[2018-02-04] MEDS: Piperacillin/Tazobactam 3.375 GM in Sodium Chloride 0.9% 100 ML IV SCH ×3 (00:01→11:14)
[2018-02-04] MEDS: Sodium Chloride 0.9% 10 ML Syringe FLUSH PRN ×4 (00:01→11:59)
[2018-02-04] MEDS: Albuterol/Ipratropium 3.0-0.5 MG/3 ML Neb Soln NEB SCH ×4 (03:06→19:34)
[2018-02-04] MEDS: Enoxaparin 40 MG/0.4 ML Syringe SUBCUT SCH (07:52)
[2018-02-04] MEDS: Cholecalciferol (Vitamin D3) 1,000 Unit Tab PO SCH (07:52)
[2018-02-04] MEDS: Omeprazole 20 MG Cap.CR PO SCH ×2 (07:53→17:55)
[2018-02-04] MEDS: Lutein/Minerals/Vitamin C/Vitamin E Acetate Cap PO SCH (07:53)
[2018-02-04] MEDS: Allopurinol 100 MG Tab PO SCH (07:53)
[2018-02-04] MEDS: Aspirin 81 MG Tab.Chew PO SCH (07:54)
[2018-02-04] MEDS: Multivitamin Tab PO SCH (07:54)
[2018-02-04] MEDS: predniSONE 20 MG Tab PO SCH (07:54)
[2018-02-04] MEDS: Isosorbide Mononitrate 60 MG Tab.ER PO SCH (07:54)
[2018-02-04] MEDS: Budesonide 0.5 MG/2 ML Neb Susp INH SCH ×2 (07:54→17:56)
[2018-02-04] MEDS: Tamsulosin 0.4 MG Cap.ER PO SCH (07:54)
[2018-02-04] MEDS: Carvedilol 6.25 MG Tab PO SCH ×2 (07:55→17:55)
[2018-02-04] MEDS: Insulin Detemir 100 Units/ML 3 ML Pen SUBCUT SCH (07:56)
[2018-02-04] MEDS: Insulin Aspart 100 Units/ML 3 ML Pen SUBCUT SCH ×4 (07:56→21:06)
[2018-02-04] MEDS: Furosemide 40 MG/4 ML VIAL IVPUSH SCH (07:57)
[2018-02-04] MEDS: Gabapentin 300 MG Cap PO SCH ×3 (07:57→17:56)
[2018-02-04] MEDS: Arformoterol 15 MCG/2 ML Neb Soln INH SCH ×2 (07:58→17:55)
[2018-02-04] MEDS: Polyvinyl Alcohol 1.4% Ophth Soln 15 ML Bottle EYEBOTH SCH ×3 (07:58→19:34)
[2018-02-04] MEDS: Acetaminophen 500 MG Tab PO PRN (14:06)
[2018-02-04] MEDS: Losartan 50 MG Tab PO SCH (19:33)
[2018-02-05] MEDS: Albuterol/Ipratropium 3.0-0.5 MG/3 ML Neb Soln NEB SCH ×4 (03:17→20:11)
[2018-02-05] MEDS: Enoxaparin 40 MG/0.4 ML Syringe SUBCUT SCH (07:41)
[2018-02-05] MEDS: Furosemide 40 MG/4 ML VIAL IVPUSH SCH (07:41)
[2018-02-05] MEDS: Omeprazole 20 MG Cap.CR PO SCH ×2 (07:41→17:52)
[2018-02-05] MEDS: Cholecalciferol (Vitamin D3) 1,000 Unit Tab PO SCH (07:42)
[2018-02-05] MEDS: Lutein/Minerals/Vitamin C/Vitamin E Acetate Cap PO SCH (07:42)
[2018-02-05] MEDS: Tamsulosin 0.4 MG Cap.ER PO SCH (07:42)
[2018-02-05] MEDS: Multivitamin Tab PO SCH (07:43)
[2018-02-05] MEDS: Gabapentin 300 MG Cap PO SCH ×3 (07:43→17:51)
[2018-02-05] MEDS: Carvedilol 6.25 MG Tab PO SCH ×2 (07:43→17:51)
[2018-02-05] MEDS: Aspirin 81 MG Tab.Chew PO SCH (07:44)
[2018-02-05] MEDS: Budesonide 0.5 MG/2 ML Neb Susp INH SCH ×2 (07:44→17:52)
[2018-02-05] MEDS: predniSONE 20 MG Tab PO SCH (07:44)
[2018-02-05] MEDS: Isosorbide Mononitrate 60 MG Tab.ER PO SCH (07:44)
[2018-02-05] MEDS: Allopurinol 100 MG Tab PO SCH (07:44)
[2018-02-05] MEDS: Insulin Detemir 100 Units/ML 3 ML Pen SUBCUT SCH (07:45)
[2018-02-05] MEDS: Polyvinyl Alcohol 1.4% Ophth Soln 15 ML Bottle EYEBOTH SCH ×3 (07:45→20:11)
[2018-02-05] MEDS: Sodium Chloride 0.9% 10 ML Syringe FLUSH PRN (07:47)
[2018-02-05] MEDS: Insulin Aspart 100 Units/ML 3 ML Pen SUBCUT SCH ×4 (07:47→20:14)
[2018-02-05] MEDS: Arformoterol 15 MCG/2 ML Neb Soln INH SCH ×2 (07:47→17:52)
[2018-02-05] MEDS ORDERED: Mineral Oil/Petrolatum/Phenylephrine/Shark Liver Oil Oint 57 GM Tube RECTAL PRN (08:50)
[2018-02-05] MEDS: Acetaminophen 500 MG Tab PO PRN (12:49)
[2018-02-05] MEDS: Losartan 50 MG Tab PO SCH (20:10)
[2018-02-06] MEDS: Albuterol/Ipratropium 3.0-0.5 MG/3 ML Neb Soln NEB SCH ×4 (04:24→19:09)
[2018-02-06] MEDS: Insulin Aspart 100 Units/ML 3 ML Pen SUBCUT SCH ×4 (08:27→20:52)
[2018-02-06] MEDS: Budesonide 0.5 MG/2 ML Neb Susp INH SCH ×2 (08:29→17:26)
[2018-02-06] MEDS: Arformoterol 15 MCG/2 ML Neb Soln INH SCH ×2 (08:29→17:27)
[2018-02-06] MEDS: Carvedilol 6.25 MG Tab PO SCH ×2 (08:31→17:28)
[2018-02-06] MEDS: Tamsulosin 0.4 MG Cap.ER PO SCH (08:32)
[2018-02-06] MEDS: Gabapentin 300 MG Cap PO SCH ×3 (08:32→17:27)
[2018-02-06] MEDS: Multivitamin Tab PO SCH (08:32)
[2018-02-06] MEDS: Omeprazole 20 MG Cap.CR PO SCH ×2 (08:32→17:27)
[2018-02-06] MEDS: predniSONE 20 MG Tab PO SCH (08:33)
[2018-02-06] MEDS: Cholecalciferol (Vitamin D3) 1,000 Unit Tab PO SCH (08:33)
[2018-02-06] MEDS: Aspirin 81 MG Tab.Chew PO SCH (08:33)
[2018-02-06] MEDS: Isosorbide Mononitrate 60 MG Tab.ER PO SCH (08:33)
[2018-02-06] MEDS: Lutein/Minerals/Vitamin C/Vitamin E Acetate Cap PO SCH (08:33)
[2018-02-06] MEDS: Polyvinyl Alcohol 1.4% Ophth Soln 15 ML Bottle EYEBOTH SCH ×3 (08:34→19:10)
[2018-02-06] MEDS: Allopurinol 100 MG Tab PO SCH (08:34)
[2018-02-06] MEDS: Enoxaparin 40 MG/0.4 ML Syringe SUBCUT SCH (08:34)
[2018-02-06] MEDS: Furosemide 40 MG/4 ML VIAL IVPUSH SCH (08:36)
[2018-02-06] MEDS: Sodium Chloride 0.9% 10 ML Syringe FLUSH PRN (08:37)
[2018-02-06] MEDS: Insulin Detemir 100 Units/ML 3 ML Pen SUBCUT SCH (08:38)
[2018-02-06] MEDS: Acetaminophen 500 MG Tab PO PRN ×2 (14:25→22:12)
[2018-02-06] MEDS: Losartan 50 MG Tab PO SCH (19:09)
[2018-02-07] MEDS: Albuterol/Ipratropium 3.0-0.5 MG/3 ML Neb Soln NEB SCH ×2 (01:29→08:06)
[2018-02-07 07:51] VITALS: BP 143/67
[2018-02-07] MEDS: Insulin Detemir 100 Units/ML 3 ML Pen SUBCUT SCH (08:06)
[2018-02-07] MEDS: Insulin Aspart 100 Units/ML 3 ML Pen SUBCUT SCH ×2 (08:06→11:30)
[2018-02-07] MEDS: Arformoterol 15 MCG/2 ML Neb Soln INH SCH (08:15)
[2018-02-07] MEDS: Cholecalciferol (Vitamin D3) 1,000 Unit Tab PO SCH (08:15)
[2018-02-07] MEDS: Gabapentin 300 MG Cap PO SCH ×2 (08:15→11:32)
[2018-02-07] MEDS: Budesonide 0.5 MG/2 ML Neb Susp INH SCH (08:15)
[2018-02-07] MEDS: Isosorbide Mononitrate 60 MG Tab.ER PO SCH (08:15)
[2018-02-07] MEDS: Polyvinyl Alcohol 1.4% Ophth Soln 15 ML Bottle EYEBOTH SCH ×2 (08:16→11:32)
[2018-02-07] MEDS: Allopurinol 100 MG Tab PO SCH (08:16)
[2018-02-07] MEDS: Acetaminophen 500 MG Tab PO PRN (08:16)
[2018-02-07] MEDS: Lutein/Minerals/Vitamin C/Vitamin E Acetate Cap PO SCH (08:17)
[2018-02-07] MEDS: Aspirin 81 MG Tab.Chew PO SCH (08:17)
[2018-02-07] MEDS: predniSONE 20 MG Tab PO SCH (08:17)
[2018-02-07] MEDS: Carvedilol 6.25 MG Tab PO SCH (08:17)
[2018-02-07] MEDS: Tamsulosin 0.4 MG Cap.ER PO SCH (08:17)
[2018-02-07] MEDS: Furosemide 40 MG/4 ML VIAL IVPUSH SCH (08:18)
[2018-02-07] MEDS: Enoxaparin 40 MG/0.4 ML Syringe SUBCUT SCH (08:18)
[2018-02-07] MEDS: Multivitamin Tab PO SCH (08:18)
[2018-02-07] MEDS: Omeprazole 20 MG Cap.CR PO SCH (08:18)
[2018-02-07] MEDS: Sodium Chloride 0.9% 10 ML Syringe FLUSH PRN (08:19)
--- NOTE | 2018-02-07 11:00 | PCM.DCSUM1 ---
Discharge Summary - Hospital Course HPI Initial Comments: See emergency room note/admission H&P Brief History: See emergency room note/admission H&P Diagnosis: Stroke: Yes Modified Morrison Scale: No Symptoms at All Modified Morrison Scale Score: 0 - Discharge Data Discharge Date: 02/07/18 Discharge Disposition: Home, [facility] 06 Condition: Fair - Discharge Diagnosis/Problem(s) (1) COPD (chronic obstructive pulmonary disease) SNOMED Code(s): 95830777 ICD Code: J44.9 - CHRONIC OBSTRUCTIVE PULMONARY DISEASE, UNSPECIFIED Status : Chronic Priority: High Problem Details: Long history of O2 and steroid- dependent COPD and sleep apnea with recent acute exacerbation requiring inpatient/acute care with subsequent swing bed care. Aggressive nebulizer treatments both during inpatient and swing bed care. He is back to his normal baseline with patient essentially at end stage of his disease. Continue to observe closely by his regular provider. Long-term prognosis is poor. Qualifiers: COPD type: COPD with acute lower respiratory infection Qualified Code(s): J44.0 - Chronic obstructive pulmonary disease with acute lower respiratory infection (2) Bilateral pneumonia SNOMED Code(s): 330589455 ICD Code: J18.9 - PNEUMONIA, UNSPECIFIED ORGANISM Status: Acute Priority : High Problem Details: Levaquin IV therapy completed on 02/03. No need for outpatient antibiotics at this time. Close follow-up by regular provider. Specific organism could not be identified. Qualifiers: Pneumonia type: due to unspecified organism Lung location: unspecified part of lung Qualified Code(s): J18.9 - Pneumonia, unspecified organism (3) CHF, Congestive heart failure SNOMED Code(s): 45726897 ICD Code: I50.9 - HEART FAILURE, UNSPECIFIED Status: Acute Priority: High Problem Details: Patient did require IV Lasix therapy throughout his inpatient and swing bed care. While the mild BNP elevation at this time. No chest pain or anginal type symptoms. Echocardiogram conducted prior to discharge with final results still pending. Note preliminary verbal report from certified dialysis technician indicates mild valvular disease with excellent ejection fraction of 59%. (4) Coronary artery disease SNOMED Code(s): 39242595 ICD Code: I25.10 - ATHSCL HEART DISEASE OF [place] CORONARY ARTERY W/O ANG PCTRS Status: Chronic Priority: Medium Problem Details: As above Qualifiers: Coronary Disease-Associated Artery/Lesion type: [place] artery [place] vs. transplanted heart: [place] heart Associated angina: without angina Qualified Code(s): I25.10 - Atherosclerotic heart disease of [place] coronary artery without angina pectoris (5) GERD (gastroesophageal reflux disease) SNOMED Code(s): 544454661 ICD Code: K21.9 - GASTRO-ESOPHAGEAL REFLUX DISEASE WITHOUT ESOPHAGITIS Status: Acute Priority: Medium Problem Details: No current abdominal complaints. Continue current Prilosec therapy. Qualifiers: Esophagitis presence: without esophagitis Qualified Code(s): K21.9 - Gastro -esophageal reflux disease without esophagitis (6) HTN, Benign hypertension SNOMED Code(s): 60091239 ICD Code: I10 - ESSENTIAL (PRIMARY) HYPERTENSION Status: Acute Priority: Medium Problem Details: Blood pressures under good control during acute and swing bed care and continue to observe closely by his regular provide. (7) Obesity (BMI 30-39.9) SNOMED Code(s): 084753991, 243923160 ICD Code: E66.9 - OBESITY, UNSPECIFIED Status: Chronic Priority: Medium Problem Details: Weight loss in moderation advisable. (8) Anemia SNOMED Code(s): 300400502 ICD Code: D64.9 - ANEMIA, UNSPECIFIED Status: Chronic Priority: Medium Problem Details: Both iron and vitamin B-12 deficiency verified during recent acute care hospitalization. Continue supplementation as per discharge orders with close follow-up by his regular provider. Note hemoglobin improved from 9.1 during recent acute care. Additional history of renal insufficiency and chronic diseases as contributing factors to his anemia. Qualifiers: Anemia type: iron deficiency (9) Diabetes mellitus SNOMED Code(s): 20691141 ICD Code: E11.9 - TYPE 2 DIABETES MELLITUS WITHOUT COMPLICATIONS Status: Chronic Priority: Medium Problem Details: Note diabetic nephropathy. Sugars extremely variable during this hospitalization with sliding scale in effect. This will be continued on an outpatient basis. Glycosylated hemoglobin of 9.7% during recent inpatient/acute care prior to admission to swing bed. (10) Dyslipidemia SNOMED Code(s): 237417719 ICD Code: E78.5 - HYPERLIPIDEMIA, UNSPECIFIED Status: Chronic Priority: Medium Problem Details: Currently not under therapy. Weight loss in moderation advisable as above. Continue to observe closely by his regular provider. (11) Hypoalbuminemia SNOMED Code(s): 460123920 ICD Code: E88.09 - OTH DISORDERS OF PLASMA-PROTEIN METABOLISM, NEC Status: Chronic Priority: Medium Problem Details: Continue High-protein Glucerna supplements twice a day as snacks with caution secondary to his renal function (12) Renal insufficiency SNOMED Code(s): 408822441, 917121517 ICD Code: N28.9 - DISORDER OF KIDNEY AND URETER, UNSPECIFIED Status: Chronic Priority: Medium Problem Details: As above. Stable renal function at discharge despite IV Lasix therapy as above. He may benefit from urine for microalbumin. (13) Elevated LFTs SNOMED Code(s): 950420255, 973590245 ICD Code: R94.5 - ABNORMAL RESULTS OF LIVER FUNCTION STUDIES Status: Acute Priority: Medium Onset Date: 02/07/18 Problem Details: LFTs elevation likely secondary to CHF. Continue to observe closely by his regular provider. (14) Osteoarthritis SNOMED Code(s): 555076020 ICD Code: M19.90 - UNSPECIFIED OSTEOARTHRITIS, UNSPECIFIED SITE Status: Chronic Priority: Medium Problem Details: Osteoarthritis stable during this hospitalization with no gout attacks despite elevated uric acid level with known previous history of hyperuricemia. - Patient Summary/Data Operative Procedure(s) Performed: None Complications: None Consults: Consultations 02/02/18 10:24 OT Evaluation and Treatment [CONS] Routine PT Evaluation and Treatment [CONS] Routine Labs Pending at D/C: Final echocardiogram report Recommended Follow-up Testing/Procedures: As per discharge instructions Planned Operative Procedure(s) after DC: None Hospital Course: Patient was transferred from inpatient/acute care to swing bed for further IV Lasix therapy, DuoNeb nebulizer treatments, IV Levaquin, close monitoring of his blood sugars, and further strengthening with PT and OT conducted during this hospitalization. No chest pain or anginal type symptoms during recent hospitalizations as above. Long-term prognosis poor secondary to end-stage disease of his COPD. No complications during this hospitalization with close follow-up by his regular provider. Patient will be discharged to home health, which he has had in the past. - Patient Instructions Diet: Full Liquid Diet (Heart healthy, 1500-calorie ADA, diverticulosis, gout) Diet, Other: High-protein Glucerna supplements twice a day as snacks Fluid Restriction: 2000 mL Activity: As Tolerated Driving: Do Not Drive Showering/Bathing: May Shower Notify Provider of: Fever, Increased Pain, Nausea and/or Vomiting Other/Special Instructions: 1. Followup with your regular provider in 7 days as directed for reevaluation and recommended CBC, comprehensive metabolic panel, uric acid level, BNP, CPK, and troponin I. Bring these discharge instructions with you to that visit. 2. Discuss final echocardiogram report, which was conducted today. with your regular provider at that time with further heart workup depending on your clinical course. 3. Strict compliance with your diet and 4 times a day sliding scale as discussed. 4. CBC, vitamin B 12 level, and TIBC panel should be conducted in 4 weeks. 5. Glycosylated in hemoglobin should be repeated in 3 months. 6. Continue oxygen therapy at home as before. 7. Immediately after this visit verify that your cellular telephone's voicemail has been activated and is empty. Also verify that your home telephone's answering machine is operating properly and has space to receive messages. Note that it is sometimes necessary for us to be able to contact you at a later date to discuss your medical care. 8. Continue incentive spirometry after each nebulizer treatment and every 2 hours as needed while awake - Discharge Plan *PRESCRIPTION DRUG MONITORING PROGRAM REVIEWED*: Not Applicable *COPY OF PRESCRIPTION DRUG MONITORING REPORT IN PATIENT GS: Not Applicable Prescriptions/Med Rec: Cyanocobalamin (Vitamin B-12) [Vitamin B-12] 1,000 mcg SL DAILY #100 tab.subl Ferrous Sulfate 325 mg PO BID #100 tablet Insulin Aspart [NovoLOG] 0 unit SUBCUT ACBED #1 pen Home Medications: Home Meds Arformoterol [Brovana] 2 ml INH BID 05/04/14 [History] Aspirin [Jaswinder Chewable Aspirin] 81 mg PO DAILY 05/04/14 [History] Budesonide [Pulmicort] 2 ml INH BID 05/04/14 [History] Calcium Carbonate [Tums Extra Strength] 750 mg PO QID PRN 05/04/14 [History] Furosemide 40 mg PO BID 05/04/14 [History] Gabapentin [Neurontin] 300 mg PO TID 05/04/14 [History] Multivitamin [Multivitamins] 1 tab PO DAILY 05/04/14 [History] Omeprazole 20 mg PO BID 05/04/14 [History] Albuterol/Ipratropium [Combivent Respimat] 1 puff INH QID 06/29/16 [History] Carboxymethylcellulose Sodium [Refresh Tears 0.5%] 1 drop EYEBOTH QID 06/29/16 [ History] Insulin Detemir [Levemir Flextouch] 30 units SUBCUT QAM 06/29/16 [History] Albuterol Sulfate 2.5 mg NEB Q4H PRN 10/19/16 [History] Isosorbide Mononitrate [Imdur] 60 mg PO DAILY 10/26/16 [History] Allopurinol [Zyloprim] 300 mg PO QAM 06/13/17 [History] Cholecalciferol (Vitamin D3) [Vitamin D3] 2,000 unit PO DAILY 06/13/17 [History] predniSONE [Prednisone] 20 mg PO DAILY 06/13/17 [History] Carvedilol 6.25 mg PO BID 10/19/17 [History] Hydrocortisone [Preparation H] 1 applic RECTAL BID PRN 10/19/17 [History] Losartan [Cozaar] 25 mg PO BEDTIME 10/19/17 [History] Tamsulosin [Flomax] 0.8 mg PO DAILY 10/19/17 [History] hydrOXYzine pamoate [Hydroxyzine Pamoate] 25 mg PO TID PRN 10/19/17 [History] Docusate Sodium [Colace] 100 mg PO TID PRN 12/28/17 [History] Non-Formulary Medication [NF Drug] 1 tab PO DAILY 01/28/18 [History] Sodium Chloride [Deep Sea] 5 ml NS ASDIRECTED PRN 01/28/18 [History] guaiFENesin [Mucinex] 1,200 mg PO BID PRN 01/28/18 [History] Acetaminophen [Tylenol Extra Strength] 1,000 mg PO Q6H PRN tablet 02/07/18 [Rx] Albuterol/Ipratropium [DuoNeb 3.0-0.5 MG/3 ML] 3 ml NEB Q4HRRT PRN neb [Rx] Albuterol/Ipratropium [DuoNeb 3.0-0.5 MG/3 ML] 3 ml NEB Q6HRRT neb 02/07/18 [Rx ] Cyanocobalamin (Vitamin B-12) [Vitamin B-12] 1,000 mcg SL DAILY #100 tab.subl [Rx] Ferrous Sulfate 325 mg PO BID #100 tablet 02/07/18 [Rx] Insulin Aspart [NovoLOG] 0 unit SUBCUT ACBED #1 pen 02/07/18 [Rx] MO/Pet,Wh/Phenylephrine/Shk Lv [Preparation H Oint] 0 gm RECTAL ASDIRECTED PRN tube 02/07/18 [Rx] Polyvinyl Alcohol [LiquiTears 1.4% Ophth Soln] 0 ml EYEBOTH TID@0800,1200,2000 bottle 02/07/18 [Rx] Patient Handouts: Cholesterol, Prsr-or-Semu, Heart-Healthy Eating Plan, Easy-to -Read, Chronic Obstructive Pulmonary Disease, [id number], Heart Failure, Easy- to-Read, Community-Acquired Pneumonia, Adult, [id number]-[id number], Diabetes Mellitus and Nutrition - Discharge Summary/Plan Comment DC Time >30 min.: Yes (Coordination of care ) Discharge Summary/Plan Comment: As above. Extensive precautions were given to the patient, who is in agreement with the treatment plan. See Patient Instructions for further treatment and plan. - General Info Date of Service: 02/07/18 Admission Dx/Problem (Free Text: 1. Bilateral pneumonia 2. COPD exacerbation 3. CHF Functional Status: Reports: Pain Controlled, Tolerating Diet, Ambulating, Urinating, Incentive Spirometry. Denies: New Symptoms Numeric/FACES Score: 0 - Review of Systems General: Denies: Fever, Weakness (Stable generalized with improvement with PT and OT), Fatigue, Malaise, Chills, Night Sweats, Appetite (Appetite good) HEENT: Reports: Glasses, Other (Stable severe bilateral presbycusis). Denies: Dysphasia, Ear Pain, Eye Pain, Headaches, Post Nasal Drip, Sinus Congestion, Rhinitis, Visual Changes Pulmonary: Reports: No Symptoms. Denies: Shortness of Breath, Pleuritic Chest Pain, Cough, Sputum, Hemoptysis, Wheezing Cardiovascular: Reports: Dyspnea on Exertion (Stable by history), Edema (Stable dependent edema). Denies: Chest Pain, Palpitations, Orthopnea, Lightheadedness Gastrointestinal: Reports: No Symptoms, Other (Normal bowel movement earlier this morning). Denies: Abdominal Pain, Constipation, Decreased Appetite, Diarrhea, Difficulty Swallowing, Flatus, Hematochezia, Melena, Nausea, Vomiting Genitourinary: Reports: No Symptoms. Denies: Dysuria, Frequency, Burning, Pain , Urgency, Incontinence, Hematuria, Retention, Flank Pain Musculoskeletal: Reports: No Symptoms. Denies: Neck Pain, Shoulder Pain, Arm Pain, Back Pain, Leg Pain Skin: Reports: Bruising (Stable ). Denies: Pallor, Diaphoresis, Rash Neurological: Reports: Numbness (Stable), Paresthesia (Stable), Tingling, Difficulty Walking (Stable), Weakness (Improved as above). Denies: Confusion, Dizziness, Headache, Syncope Psychiatric: Reports: No Symptoms. Denies: Confusion, Depression, Anxiety, Agitation, Hallucinations - Patient Data Vitals - Most Recent: Last Vital Signs Temp 36.4 C 02/06/18 19:32 Pulse 75 02/07/18 07:49 Resp 20 02/07/18 07:49 BP 143/67 H 02/07/18 07:49 Pulse Ox 98 02/07/18 07:49 Vital Signs (72 hours) 02/04/18 02/04/18 02/04/18 17:55 19:12 19:33 Temperature [ 36.8 C Oral] Pulse, 68 Peripheral Pulse, Peripheral [ Left Pulse Oximetry] Pulse, 75 Peripheral [ Right Pulse Oximetry] Respiratory 20 Rate Blood Pressure 130/83 0/0 L Blood Pressure 145/63 H [Left Upper] O2 Sat by Pulse 98 Oximetry 02/05/18 02/05/18 02/05/18 07:40 07:43 17:51 Temperature [ 37.1 C Oral] Pulse, 79 79 Peripheral Pulse, Peripheral [ Left Pulse Oximetry] Pulse, 79 Peripheral [ Right Pulse Oximetry] Respiratory 20 Rate Blood Pressure 145/66 H 145/66 H Blood Pressure 145/66 H [Left Upper] O2 Sat by Pulse 96 Oximetry 02/05/18 02/05/18 02/06/18 19:52 20:10 07:00 Temperature [ 36.6 C 36.6 C Oral] Pulse, Peripheral Pulse, Peripheral [ Left Pulse Oximetry] Pulse, 78 103 H Peripheral [ Right Pulse Oximetry] Respiratory 20 18 Rate Blood Pressure 95/55 L Blood Pressure 95/55 L 141/68 H [Left Upper] O2 Sat by Pulse 95 97 Oximetry 02/06/18 02/06/18 02/06/18 08:31 11:00 19:09 Temperature [ Oral] Pulse, 103 H Peripheral Pulse, Peripheral [ Left Pulse Oximetry] Pulse, Peripheral [ Right Pulse Oximetry] Respiratory Rate Blood Pressure 141/68 H 145/66 H Blood Pressure [Left Upper] O2 Sat by Pulse 95 Oximetry 02/06/18 02/07/18 19:32 07:49 Temperature [ 36.4 C Oral] Pulse, Peripheral Pulse, 85 Peripheral [ Left Pulse Oximetry] Pulse, 75 Peripheral [ Right Pulse Oximetry] Respiratory 20 Rate Blood Pressure Blood Pressure 117/64 143/67 H [Left Upper] O2 Sat by Pulse 96 98 Oximetry Weight - Most Recent: 133.129 kg I&O - Last 24 hours: Intake & Output 02/06/18 02/07/18 02/07/18 22:59 06:59 14:59 Intake Total 430 440 Output Total 546 061 5691 Balance -70 700 -560 Imaging Impressions - Last 24 hrs: Chest x-ray, PA and lateral, from today shows evidence of moderate to severe cardiomegaly and COPD with mild centralized CHF and atelectasis but no pneumothorax or significant pulmonary infiltrates. Moderate osteoarthritic and osteoporotic changes in the thoracic spine. Lab Results - Last 24 hrs: Laboratory Results - last 24 hr 02/06/18 02/06/18 02/06/18 Range/Units 11:02 16:56 20:50 WBC (4.0-10.2) K/uL RBC (4.33-5.41) M/uL Hgb (13.1-16.8) g/dL Hct (39.0-49.0) % MCV (84.0-98.0) fL MCH (28.2-33.3) pg MCHC (31.7-36.0) g/dL RDW (11.2-14.1) % Plt Count (150-350) K/uL Neut % (Auto) (45.0-80.0) % Lymph % (Auto) (10.0-50.0) % [place] % (Auto) (2.0-14.0) % Eos % (Auto) (0.0-5.0) % Baso % (Auto) (0.0-2.0) % Neut # (Auto) (1.40-7.00) K/uL Lymph # (Auto) (0.50-3.50) K/uL [place] # (Auto) (0.00-1.00) K/uL Eos # (Auto) (0.00-0.50) K/uL Baso # (Auto) (0.00-0.20) K/uL PT (9.8-11.7) SEC INR APTT (22.1-29.8) SEC Sodium (136-145) mmol/L Potassium (3.5-5.1) mmol/L Chloride (98-107) mmol/L Carbon Dioxide (21.0-32.0) mmol/L BUN (7-18) mg/dL Creatinine (0.51-1.17) mg/dL Est Cr Clr Drug Dosing mL/min Estimated GFR (MDRD) mL/min Glucose (74-106) mg/dL POC Glucose 154 H 318 H* 184 H (65-110) mg/dl Uric Acid (2.6-7.2) mg/dL Calcium (8.5-10.1) mg/dL Magnesium (1.8-2.4) mg/dL Total Bilirubin (0.2-1.0) mg/dL AST (15-37) U/L ALT (12-78) U/L Alkaline Phosphatase (46-116) IU/L Creatine Kinase (26-308) U/L Creatine Kinase Index (0.0-2.5) % CK-MB (CK-2) (0.00-3.60) ng/mL Troponin I (0.000-0.056) ng/mL NT-Pro-B Natriuret Pep (0-125) pg/mL Total Protein (6.4-8.2) g/dL Albumin (3.4-5.0) g/dL 02/07/18 02/07/18 02/07/18 Range/Units 07:21 09:08 09:08 WBC 10.1 (4.0-10.2) K/uL RBC 2.77 L (4.33-5.41) M/uL Hgb 9.9 L (13.1-16.8) g/dL Hct 31.0 L (39.0-49.0) % MCV 111.9 H (84.0-98.0) fL MCH 35.7 H (28.2-33.3) pg MCHC 31.9 (31.7-36.0) g/dL RDW 15.2 H (11.2-14.1) % Plt Count 175 (150-350) K/uL Neut % (Auto) 62.5 (45.0-80.0) % Lymph % (Auto) 24.7 (10.0-50.0) % [place] % (Auto) 10.0 (2.0-14.0) % Eos % (Auto) 2.4 (0.0-5.0) % Baso % (Auto) 0.4 (0.0-2.0) % Neut # (Auto) 6.35 (1.40-7.00) K/uL Lymph # (Auto) 2.50 (0.50-3.50) K/uL [place] # (Auto) 1.01 H (0.00-1.00) K/uL Eos # (Auto) 0.24 (0.00-0.50) K/uL Baso # (Auto) 0.04 (0.00-0.20) K/uL PT (9.8-11.7) SEC INR APTT (22.1-29.8) SEC Sodium 138 (136-145) mmol/L Potassium 3.7 (3.5-5.1) mmol/L Chloride 101 (98-107) mmol/L Carbon Dioxide 27.3 (21.0-32.0) mmol/L BUN 38 H (7-18) mg/dL Creatinine 1.25 H (0.51-1.17) mg/dL Est Cr Clr Drug Dosing 50.83 mL/min Estimated GFR (MDRD) 56 mL/min Glucose 186 H (74-106) mg/dL POC Glucose 101 (65-110) mg/dl Uric Acid 7.5 H (2.6-7.2) mg/dL Calcium 9.1 (8.5-10.1) mg/dL Magnesium 2.0 (1.8-2.4) mg/dL Total Bilirubin 0.3 (0.2-1.0) mg/dL AST 45 H (15-37) U/L ALT 60 (12-78) U/L Alkaline Phosphatase 61 (46-116) IU/L Creatine Kinase 77 (26-308) U/L Creatine Kinase Index 4.0 H (0.0-2.5) % CK-MB (CK-2) 3.10 (0.00-3.60) ng/mL Troponin I 0.003 (0.000-0.056) ng/mL NT-Pro-B Natriuret Pep 435 H (0-125) pg/mL Total Protein 6.6 (6.4-8.2) g/dL Albumin 2.9 L (3.4-5.0) g/dL 02/07/18 Range/Units 09:08 WBC (4.0-10.2) K/uL RBC (4.33-5.41) M/uL Hgb (13.1-16.8) g/dL Hct (39.0-49.0) % MCV (84.0-98.0) fL MCH (28.2-33.3) pg MCHC (31.7-36.0) g/dL RDW (11.2-14.1) % Plt Count (150-350) K/uL Neut % (Auto) (45.0-80.0) % Lymph % (Auto) (10.0-50.0) % [place] % (Auto) (2.0-14.0) % Eos % (Auto) (0.0-5.0) % Baso % (Auto) (0.0-2.0) % Neut # (Auto) (1.40-7.00) K/uL Lymph # (Auto) (0.50-3.50) K/uL [place] # (Auto) (0.00-1.00) K/uL Eos # (Auto) (0.00-0.50) K/uL Baso # (Auto) (0.00-0.20) K/uL PT 10.8 (9.8-11.7) SEC INR 1.0 APTT 26.4 (22.1-29.8) SEC Sodium (136-145) mmol/L Potassium (3.5-5.1) mmol/L Chloride (98-107) mmol/L Carbon Dioxide (21.0-32.0) mmol/L BUN (7-18) mg/dL Creatinine (0.51-1.17) mg/dL Est Cr Clr Drug Dosing mL/min Estimated GFR (MDRD) mL/min Glucose (74-106) mg/dL POC Glucose (65-110) mg/dl Uric Acid (2.6-7.2) mg/dL Calcium (8.5-10.1) mg/dL Magnesium (1.8-2.4) mg/dL Total Bilirubin (0.2-1.0) mg/dL AST (15-37) U/L ALT (12-78) U/L Alkaline Phosphatase (46-116) IU/L Creatine Kinase (26-308) U/L Creatine Kinase Index (0.0-2.5) % CK-MB (CK-2) (0.00-3.60) ng/mL Troponin I (0.000-0.056) ng/mL NT-Pro-B Natriuret Pep (0-125) pg/mL Total Protein (6.4-8.2) g/dL Albumin (3.4-5.0) g/dL Laboratory Tests 01/31/18 01/31/18 02/01/18 Range/Units 17:20 20:27 07:05 WBC (4.0-10.2) K/uL RBC (4.33-5.41) M/uL Hgb (13.1-16.8) g/dL Hct (39.0-49.0) % MCV (84.0-98.0) fL MCH (28.2-33.3) pg MCHC (31.7-36.0) g/dL RDW (11.2-14.1) % Plt Count (150-350) K/uL Neut % (Auto) (45.0-80.0) % Lymph % (Auto) (10.0-50.0) % [place] % (Auto) (2.0-14.0) % Eos % (Auto) (0.0-5.0) % Baso % (Auto) (0.0-2.0) % Neut # (Auto) (1.40-7.00) K/uL Lymph # (Auto) (0.50-3.50) K/uL [place] # (Auto) (0.00-1.00) K/uL Eos # (Auto) (0.00-0.50) K/uL Baso # (Auto) (0.00-0.20) K/uL PT (9.8-11.7) SEC INR APTT (22.1-29.8) SEC Sodium (136-145) mmol/L Potassium (3.5-5.1) mmol/L Chloride (98-107) mmol/L Carbon Dioxide (21.0-32.0) mmol/L BUN (7-18) mg/dL Creatinine (0.51-1.17) mg/dL Est Cr Clr Drug Dosing mL/min Estimated GFR (MDRD) mL/min Glucose (74-106) mg/dL POC Glucose 286 H* 314 H* 126 H (65-110) mg/dl Uric Acid (2.6-7.2) mg/dL Calcium (8.5-10.1) mg/dL Magnesium (1.8-2.4) mg/dL Total Bilirubin (0.2-1.0) mg/dL AST (15-37) U/L ALT (12-78) U/L Alkaline Phosphatase (46-116) IU/L Creatine Kinase (26-308) U/L Creatine Kinase Index (0.0-2.5) % CK-MB (CK-2) (0.00-3.60) ng/mL Troponin I (0.000-0.056) ng/mL NT-Pro-B Natriuret Pep (0-125) pg/mL Total Protein (6.4-8.2) g/dL Albumin (3.4-5.0) g/dL 02/01/18 02/01/18 02/01/18 Range/Units 11:14 16:55 20:39 WBC (4.0-10.2) K/uL RBC (4.33-5.41) M/uL Hgb (13.1-16.8) g/dL Hct (39.0-49.0) % MCV (84.0-98.0) fL MCH (28.2-33.3) pg MCHC (31.7-36.0) g/dL RDW (11.2-14.1) % Plt Count (150-350) K/uL Neut % (Auto) (45.0-80.0) % Lymph % (Auto) (10.0-50.0) % [place] % (Auto) (2.0-14.0) % Eos % (Auto) (0.0-5.0) % Baso % (Auto) (0.0-2.0) % Neut # (Auto) (1.40-7.00) K/uL Lymph # (Auto) (0.50-3.50) K/uL [place] # (Auto) (0.00-1.00) K/uL Eos # (Auto) (0.00-0.50) K/uL Baso # (Auto) (0.00-0.20) K/uL PT (9.8-11.7) SEC INR APTT (22.1-29.8) SEC Sodium (136-145) mmol/L Potassium (3.5-5.1) mmol/L Chloride (98-107) mmol/L Carbon Dioxide (21.0-32.0) mmol/L BUN (7-18) mg/dL Creatinine (0.51-1.17) mg/dL Est Cr Clr Drug Dosing mL/min Estimated GFR (MDRD) mL/min Glucose (74-106) mg/dL POC Glucose 179 H 314 H* 238 H (65-110) mg/dl Uric Acid (2.6-7.2) mg/dL Calcium (8.5-10.1) mg/dL Magnesium (1.8-2.4) mg/dL Total Bilirubin (0.2-1.0) mg/dL AST (15-37) U/L ALT (12-78) U/L Alkaline Phosphatase (46-116) IU/L Creatine Kinase (26-308) U/L Creatine Kinase Index (0.0-2.5) % CK-MB (CK-2) (0.00-3.60) ng/mL Troponin I (0.000-0.056) ng/mL NT-Pro-B Natriuret Pep (0-125) pg/mL Total Protein (6.4-8.2) g/dL Albumin (3.4-5.0) g/dL 02/02/18 02/02/18 02/02/18 Range/Units 07:17 11:03 17:01 WBC (4.0-10.2) K/uL RBC (4.33-5.41) M/uL Hgb (13.1-16.8) g/dL Hct (39.0-49.0) % MCV (84.0-98.0) fL MCH (28.2-33.3) pg MCHC (31.7-36.0) g/dL RDW (11.2-14.1) % Plt Count (150-350) K/uL Neut % (Auto) (45.0-80.0) % Lymph % (Auto) (10.0-50.0) % [place] % (Auto) (2.0-14.0) % Eos % (Auto) (0.0-5.0) % Baso % (Auto) (0.0-2.0) % Neut # (Auto) (1.40-7.00) K/uL Lymph # (Auto) (0.50-3.50) K/uL Barbour # (Auto) (0.00-1.00) K/uL Eos # (Auto) (0.00-0.50) K/uL Baso # (Auto) (0.00-0.20) K/uL PT (9.8-11.7) SEC INR APTT (22.1-29.8) SEC Sodium (136-145) mmol/L Potassium (3.5-5.1) mmol/L Chloride (98-107) mmol/L Carbon Dioxide (21.0-32.0) mmol/L BUN (7-18) mg/dL Creatinine (0.51-1.17) mg/dL Est Cr Clr Drug Dosing mL/min Estimated GFR (MDRD) mL/min Glucose (74-106) mg/dL POC Glucose 120 H 187 H 326 H* (65-110) mg/dl Uric Acid (2.6-7.2) mg/dL Calcium (8.5-10.1) mg/dL Magnesium (1.8-2.4) mg/dL Total Bilirubin (0.2-1.0) mg/dL AST (15-37) U/L ALT (12-78) U/L Alkaline Phosphatase (46-116) IU/L Creatine Kinase (26-308) U/L Creatine Kinase Index (0.0-2.5) % CK-MB (CK-2) (0.00-3.60) ng/mL Troponin I (0.000-0.056) ng/mL NT-Pro-B Natriuret Pep (0-125) pg/mL Total Protein (6.4-8.2) g/dL Albumin (3.4-5.0) g/dL 02/02/18 02/03/18 02/03/18 Range/Units 20:13 07:04 11:35 WBC (4.0-10.2) K/uL RBC (4.33-5.41) M/uL Hgb (13.1-16.8) g/dL Hct (39.0-49.0) % MCV (84.0-98.0) fL MCH (28.2-33.3) pg MCHC (31.7-36.0) g/dL RDW (11.2-14.1) % Plt Count (150-350) K/uL Neut % (Auto) (45.0-80.0) % Lymph % (Auto) (10.0-50.0) % [place]bour % (Auto) (2.0-14.0) % Eos % (Auto) (0.0-5.0) % Baso % (Auto) (0.0-2.0) % Neut # (Auto) (1.40-7.00) K/uL Lymph # (Auto) (0.50-3.50) K/uL [place] # (Auto) (0.00-1.00) K/uL Eos # (Auto) (0.00-0.50) K/uL Baso # (Auto) (0.00-0.20) K/uL PT (9.8-11.7) SEC INR APTT (22.1-29.8) SEC Sodium (136-145) mmol/L Potassium (3.5-5.1) mmol/L Chloride (98-107) mmol/L Carbon Dioxide (21.0-32.0) mmol/L BUN (7-18) mg/dL Creatinine (0.51-1.17) mg/dL Est Cr Clr Drug Dosing mL/min Estimated GFR (MDRD) mL/min Glucose (74-106) mg/dL POC Glucose 276 H* 124 H 197 H (65-110) mg/dl Uric Acid (2.6-7.2) mg/dL Calcium (8.5-10.1) mg/dL Magnesium (1.8-2.4) mg/dL Total Bilirubin (0.2-1.0) mg/dL AST (15-37) U/L ALT (12-78) U/L Alkaline Phosphatase (46-116) IU/L Creatine Kinase (26-308) U/L Creatine Kinase Index (0.0-2.5) % CK-MB (CK-2) (0.00-3.60) ng/mL Troponin I (0.000-0.056) ng/mL NT-Pro-B Natriuret Pep (0-125) pg/mL Total Protein (6.4-8.2) g/dL Albumin (3.4-5.0) g/dL 02/03/18 02/03/18 02/04/18 Range/Units 17:01 20:34 07:34 WBC (4.0-10.2) K/uL RBC (4.33-5.41) M/uL Hgb (13.1-16.8) g/dL Hct (39.0-49.0) % MCV (84.0-98.0) fL MCH (28.2-33.3) pg MCHC (31.7-36.0) g/dL RDW (11.2-14.1) % Plt Count (150-350) K/uL Neut % (Auto) (45.0-80.0) % Lymph % (Auto) (10.0-50.0) % [place]bour % (Auto) (2.0-14.0) % Eos % (Auto) (0.0-5.0) % Baso % (Auto) (0.0-2.0) % Neut # (Auto) (1.40-7.00) K/uL Lymph # (Auto) (0.50-3.50) K/uL [place] # (Auto) (0.00-1.00) K/uL Eos # (Auto) (0.00-0.50) K/uL Baso # (Auto) (0.00-0.20) K/uL PT (9.8-11.7) SEC INR APTT (22.1-29.8) SEC Sodium (136-145) mmol/L Potassium (3.5-5.1) mmol/L Chloride (98-107) mmol/L Carbon Dioxide (21.0-32.0) mmol/L BUN (7-18) mg/dL Creatinine (0.51-1.17) mg/dL Est Cr Clr Drug Dosing mL/min Estimated GFR (MDRD) mL/min Glucose (74-106) mg/dL POC Glucose 269 H* 216 H 107 (65-110) mg/dl Uric Acid (2.6-7.2) mg/dL Calcium (8.5-10.1) mg/dL Magnesium (1.8-2.4) mg/dL Total Bilirubin (0.2-1.0) mg/dL AST (15-37) U/L ALT (12-78) U/L Alkaline Phosphatase (46-116) IU/L Creatine Kinase (26-308) U/L Creatine Kinase Index (0.0-2.5) % CK-MB (CK-2) (0.00-3.60) ng/mL Troponin I (0.000-0.056) ng/mL NT-Pro-B Natriuret Pep (0-125) pg/mL Total Protein (6.4-8.2) g/dL Albumin (3.4-5.0) g/dL 02/04/18 02/04/18 02/04/18 Range/Units 11:18 17:08 21:04 WBC (4.0-10.2) K/uL RBC (4.33-5.41) M/uL Hgb (13.1-16.8) g/dL Hct (39.0-49.0) % MCV (84.0-98.0) fL MCH (28.2-33.3) pg MCHC (31.7-36.0) g/dL RDW (11.2-14.1) % Plt Count (150-350) K/uL Neut % (Auto) (45.0-80.0) % Lymph % (Auto) (10.0-50.0) % Barbour % (Auto) (2.0-14.0) % Eos % (Auto) (0.0-5.0) % Baso % (Auto) (0.0-2.0) % Neut # (Auto) (1.40-7.00) K/uL Lymph # (Auto) (0.50-3.50) K/uL [place]bour # (Auto) (0.00-1.00) K/uL Eos # (Auto) (0.00-0.50) K/uL Baso # (Auto) (0.00-0.20) K/uL PT (9.8-11.7) SEC INR APTT (22.1-29.8) SEC Sodium (136-145) mmol/L Potassium (3.5-5.1) mmol/L Chloride (98-107) mmol/L Carbon Dioxide (21.0-32.0) mmol/L BUN (7-18) mg/dL Creatinine (0.51-1.17) mg/dL Est Cr Clr Drug Dosing mL/min Estimated GFR (MDRD) mL/min Glucose (74-106) mg/dL POC Glucose 178 H 250 H 186 H (65-110) mg/dl Uric Acid (2.6-7.2) mg/dL Calcium (8.5-10.1) mg/dL Magnesium (1.8-2.4) mg/dL Total Bilirubin (0.2-1.0) mg/dL AST (15-37) U/L ALT (12-78) U/L Alkaline Phosphatase (46-116) IU/L Creatine Kinase (26-308) U/L Creatine Kinase Index (0.0-2.5) % CK-MB (CK-2) (0.00-3.60) ng/mL Troponin I (0.000-0.056) ng/mL NT-Pro-B Natriuret Pep (0-125) pg/mL Total Protein (6.4-8.2) g/dL Albumin (3.4-5.0) g/dL 02/05/18 02/05/18 02/05/18 Range/Units 07:27 11:23 16:59 WBC (4.0-10.2) K/uL RBC (4.33-5.41) M/uL Hgb (13.1-16.8) g/dL Hct (39.0-49.0) % MCV (84.0-98.0) fL MCH (28.2-33.3) pg MCHC (31.7-36.0) g/dL RDW (11.2-14.1) % Plt Count (150-350) K/uL Neut % (Auto) (45.0-80.0) % Lymph % (Auto) (10.0-50.0) % Barbour % (Auto) (2.0-14.0) % Eos % (Auto) (0.0-5.0) % Baso % (Auto) (0.0-2.0) % Neut # (Auto) (1.40-7.00) K/uL Lymph # (Auto) (0.50-3.50) K/uL [place]bour # (Auto) (0.00-1.00) K/uL Eos # (Auto) (0.00-0.50) K/uL Baso # (Auto) (0.00-0.20) K/uL PT (9.8-11.7) SEC INR APTT (22.1-29.8) SEC Sodium (136-145) mmol/L Potassium (3.5-5.1) mmol/L Chloride (98-107) mmol/L Carbon Dioxide (21.0-32.0) mmol/L BUN (7-18) mg/dL Creatinine (0.51-1.17) mg/dL Est Cr Clr Drug Dosing mL/min Estimated GFR (MDRD) mL/min Glucose (74-106) mg/dL POC Glucose 111 H 185 H 286 H* (65-110) mg/dl Uric Acid (2.6-7.2) mg/dL Calcium (8.5-10.1) mg/dL Magnesium (1.8-2.4) mg/dL Total Bilirubin (0.2-1.0) mg/dL AST (15-37) U/L ALT (12-78) U/L Alkaline Phosphatase (46-116) IU/L Creatine Kinase (26-308) U/L Creatine Kinase Index (0.0-2.5) % CK-MB (CK-2) (0.00-3.60) ng/mL Troponin I (0.000-0.056) ng/mL NT-Pro-B Natriuret Pep (0-125) pg/mL Total Protein (6.4-8.2) g/dL Albumin (3.4-5.0) g/dL 02/05/18 02/06/18 02/06/18 Range/Units 20:13 07:16 11:02 WBC (4.0-10.2) K/uL RBC (4.33-5.41) M/uL Hgb (13.1-16.8) g/dL Hct (39.0-49.0) % MCV (84.0-98.0) fL MCH (28.2-33.3) pg MCHC (31.7-36.0) g/dL RDW (11.2-14.1) % Plt Count (150-350) K/uL Neut % (Auto) (45.0-80.0) % Lymph % (Auto) (10.0-50.0) % Barbour % (Auto) (2.0-14.0) % Eos % (Auto) (0.0-5.0) % Baso % (Auto) (0.0-2.0) % Neut # (Auto) (1.40-7.00) K/uL Lymph # (Auto) (0.50-3.50) K/uL [place]bour # (Auto) (0.00-1.00) K/uL Eos # (Auto) (0.00-0.50) K/uL Baso # (Auto) (0.00-0.20) K/uL PT (9.8-11.7) SEC INR APTT (22.1-29.8) SEC Sodium (136-145) mmol/L Potassium (3.5-5.1) mmol/L Chloride (98-107) mmol/L Carbon Dioxide (21.0-32.0) mmol/L BUN (7-18) mg/dL Creatinine (0.51-1.17) mg/dL Est Cr Clr Drug Dosing mL/min Estimated GFR (MDRD) mL/min Glucose (74-106) mg/dL POC Glucose 265 H* 110 154 H (65-110) mg/dl Uric Acid (2.6-7.2) mg/dL Calcium (8.5-10.1) mg/dL Magnesium (1.8-2.4) mg/dL Total Bilirubin (0.2-1.0) mg/dL AST (15-37) U/L ALT (12-78) U/L Alkaline Phosphatase (46-116) IU/L Creatine Kinase (26-308) U/L Creatine Kinase Index (0.0-2.5) % CK-MB (CK-2) (0.00-3.60) ng/mL Troponin I (0.000-0.056) ng/mL NT-Pro-B Natriuret Pep (0-125) pg/mL Total Protein (6.4-8.2) g/dL Albumin (3.4-5.0) g/dL 02/06/18 02/06/18 02/07/18 Range/Units 16:56 20:50 07:21 WBC (4.0-10.2) K/uL RBC (4.33-5.41) M/uL Hgb (13.1-16.8) g/dL Hct (39.0-49.0) % MCV (84.0-98.0) fL MCH (28.2-33.3) pg MCHC (31.7-36.0) g/dL RDW (11.2-14.1) % Plt Count (150-350) K/uL Neut % (Auto) (45.0-80.0) % Lymph % (Auto) (10.0-50.0) % Barbour % (Auto) (2.0-14.0) % Eos % (Auto) (0.0-5.0) % Baso % (Auto) (0.0-2.0) % Neut # (Auto) (1.40-7.00) K/uL Lymph # (Auto) (0.50-3.50) K/uL Barbour # (Auto) (0.00-1.00) K/uL Eos # (Auto) (0.00-0.50) K/uL Baso # (Auto) (0.00-0.20) K/uL PT (9.8-11.7) SEC INR APTT (22.1-29.8) SEC Sodium (136-145) mmol/L Potassium (3.5-5.1) mmol/L Chloride (98-107) mmol/L Carbon Dioxide (21.0-32.0) mmol/L BUN (7-18) mg/dL Creatinine (0.51-1.17) mg/dL Est Cr Clr Drug Dosing mL/min Estimated GFR (MDRD) mL/min Glucose (74-106) mg/dL POC Glucose 318 H* 184 H 101 (65-110) mg/dl Uric Acid (2.6-7.2) mg/dL Calcium (8.5-10.1) mg/dL Magnesium (1.8-2.4) mg/dL Total Bilirubin (0.2-1.0) mg/dL AST (15-37) U/L ALT (12-78) U/L Alkaline Phosphatase (46-116) IU/L Creatine Kinase (26-308) U/L Creatine Kinase Index (0.0-2.5) % CK-MB (CK-2) (0.00-3.60) ng/mL Troponin I (0.000-0.056) ng/mL NT-Pro-B Natriuret Pep (0-125) pg/mL Total Protein (6.4-8.2) g/dL Albumin (3.4-5.0) g/dL 02/07/18 02/07/18 02/07/18 Range/Units 09:08 09:08 09:08 WBC 10.1 (4.0-10.2) K/uL RBC 2.77 L (4.33-5.41) M/uL Hgb 9.9 L (13.1-16.8) g/dL Hct 31.0 L (39.0-49.0) % MCV 111.9 H (84.0-98.0) fL MCH 35.7 H (28.2-33.3) pg MCHC 31.9 (31.7-36.0) g/dL RDW 15.2 H (11.2-14.1) % Plt Count 175 (150-350) K/uL Neut % (Auto) 62.5 (45.0-80.0) % Lymph % (Auto) 24.7 (10.0-50.0) % Barbour % (Auto) 10.0 (2.0-14.0) % Eos % (Auto) 2.4 (0.0-5.0) % Baso % (Auto) 0.4 (0.0-2.0) % Neut # (Auto) 6.35 (1.40-7.00) K/uL Lymph # (Auto) 2.50 (0.50-3.50) K/uL Barbour # (Auto) 1.01 H (0.00-1.00) K/uL Eos # (Auto) 0.24 (0.00-0.50) K/uL Baso # (Auto) 0.04 (0.00-0.20) K/uL PT 10.8 (9.8-11.7) SEC INR 1.0 APTT 26.4 (22.1-29.8) SEC Sodium 138 (136-145) mmol/L Potassium 3.7 (3.5-5.1) mmol/L Chloride 101 (98-107) mmol/L Carbon Dioxide 27.3 (21.0-32.0) mmol/L BUN 38 H (7-18) mg/dL Creatinine 1.25 H (0.51-1.17) mg/dL Est Cr Clr Drug Dosing 50.83 mL/min Estimated GFR (MDRD) 56 mL/min Glucose 186 H (74-106) mg/dL POC Glucose (65-110) mg/dl Uric Acid 7.5 H (2.6-7.2) mg/dL Calcium 9.1 (8.5-10.1) mg/dL Magnesium 2.0 (1.8-2.4) mg/dL Total Bilirubin 0.3 (0.2-1.0) mg/dL AST 45 H (15-37) U/L ALT 60 (12-78) U/L Alkaline Phosphatase 61 (46-116) IU/L Creatine Kinase 77 (26-308) U/L Creatine Kinase Index 4.0 H (0.0-2.5) % CK-MB (CK-2) 3.10 (0.00-3.60) ng/mL Troponin I 0.003 (0.000-0.056) ng/mL NT-Pro-B Natriuret Pep 435 H (0-125) pg/mL Total Protein 6.6 (6.4-8.2) g/dL Albumin 2.9 L (3.4-5.0) g/dL 02/07/18 Range/Units 11:30 WBC (4.0-10.2) K/uL RBC (4.33-5.41) M/uL Hgb (13.1-16.8) g/dL Hct (39.0-49.0) % MCV (84.0-98.0) fL MCH (28.2-33.3) pg MCHC (31.7-36.0) g/dL RDW (11.2-14.1) % Plt Count (150-350) K/uL Neut % (Auto) (45.0-80.0) % Lymph % (Auto) (10.0-50.0) % Barbour % (Auto) (2.0-14.0) % Eos % (Auto) (0.0-5.0) % Baso % (Auto) (0.0-2.0) % Neut # (Auto) (1.40-7.00) K/uL Lymph # (Auto) (0.50-3.50) K/uL [place]bour # (Auto) (0.00-1.00) K/uL Eos # (Auto) (0.00-0.50) K/uL Baso # (Auto) (0.00-0.20) K/uL PT (9.8-11.7) SEC INR APTT (22.1-29.8) SEC Sodium (136-145) mmol/L Potassium (3.5-5.1) mmol/L Chloride (98-107) mmol/L Carbon Dioxide (21.0-32.0) mmol/L BUN (7-18) mg/dL Creatinine (0.51-1.17) mg/dL Est Cr Clr Drug Dosing mL/min Estimated GFR (MDRD) mL/min Glucose (74-106) mg/dL POC Glucose 190 H (65-110) mg/dl Uric Acid (2.6-7.2) mg/dL Calcium (8.5-10.1) mg/dL Magnesium (1.8-2.4) mg/dL Total Bilirubin (0.2-1.0) mg/dL AST (15-37) U/L ALT (12-78) U/L Alkaline Phosphatase (46-116) IU/L Creatine Kinase (26-308) U/L Creatine Kinase Index (0.0-2.5) % CK-MB (CK-2) (0.00-3.60) ng/mL Troponin I (0.000-0.056) ng/mL NT-Pro-B Natriuret Pep (0-125) pg/mL Total Protein (6.4-8.2) g/dL Albumin (3.4-5.0) g/dL [facility] Results - Last 24 hrs: None Med Orders - Current: Current Medications Acetaminophen (Tylenol Extra Strength) 1,000 mg PO Q6H PRN PRN Reason: Pain Last Admin: 02/07/18 08:16 Dose: 1,000 mg Albuterol (Proventil Neb Soln) 2.5 mg INH Q2H PRN PRN Reason: SHORTNESS OF BREATH Albuterol/Ipratropium (Duoneb 3.0-0.5 Mg/3 Ml) 3 ml NEB Q4HRRT PRN PRN Reason: Dyspnea Last Admin: 02/04/18 03:34 Dose: 3 ml Albuterol/Ipratropium (Duoneb 3.0-0.5 Mg/3 Ml) 3 ml NEB Q6HRRT [facility] Last Admin: 02/07/18 08:06 Dose: 3 ml Allopurinol (Zyloprim) 200 mg PO QAM [facility] Last Admin: 02/07/18 08:16 Dose: 200 mg Arformoterol Tartrate (Brovana) 15 mcg INH BID [facility] Last Admin: 02/07/18 08:15 Dose: 15 mcg Artificial Tears (Liquitears 1.4% Ophth Soln) 0 ml EYEBOTH TID@0800,1200,2000 [facility] Last Admin: 02/07/18 08:16 Dose: 2 drop Aspirin (Aspirin) 81 mg PO DAILY [facility] Last Admin: 02/07/18 08:17 Dose: 81 mg Budesonide (Pulmicort) 0.5 mg INH BID [facility] Last Admin: 02/07/18 08:15 Dose: 0.5 mg Calcium Carbonate/Glycine (Tums Extra Strength) 750 mg PO QID PRN PRN Reason: Heartburn Carvedilol (Coreg) 6.25 mg PO BID [facility] Last Admin: 02/07/18 08:17 Dose: 6.25 mg Cholecalciferol (Vitamin D3) 2,000 units PO DAILY [facility] Last Admin: 02/07/18 08:15 Dose: 2,000 units Docusate Sodium (Colace) 100 mg PO TID PRN PRN Reason: Constipation Enoxaparin Sodium (Lovenox) 40 mg SUBCUT DAILY [facility] Last Admin: 02/07/18 08:18 Dose: 40 mg Furosemide (Lasix) 40 mg IVPUSH DAILY [facility] Last Admin: 02/07/18 08:18 Dose: 40 mg Gabapentin (Neurontin) 300 mg PO TID [facility] Last Admin: 02/07/18 08:15 Dose: 300 mg Guaifenesin (Mucinex) 1,200 mg PO BID PRN PRN Reason: Cough Hydroxyzine Pamoate (Vistaril) 25 mg PO TID PRN PRN Reason: Other Insulin Aspart (Novolog) 0 unit SUBCUT ACBED [facility]; Protocol Last Admin: 02/07/18 08:06 Dose: Not Given Insulin [facility] ([facility]ve[facility]) [facility] [place] [place] Admin: 02/07/18 08:06 Dose: 30 units Isosorbide Mononitrate (Imdur) 60 mg PO DAILY [facility] Last Admin: 02/07/18 08:15 Dose: 60 mg Losartan Potassium (Cozaar) 25 mg PO BEDTIME [facility] Last Admin: 02/06/18 19:09 Dose: 25 mg Multivitamins/Minerals/Vitamin C (Tab-A-Prisca) 1 tab PO DAILY [facility] Last Admin: 02/07/18 08:18 Dose: 1 tab Omeprazole (Omeprazole) 20 mg PO BIDAC [facility] Last Admin: 02/07/18 08:18 Dose: 20 mg Phenyleph/Shark Oil/Min Oil/Petrol (Preparation H Oint) 0 gm RECTAL ASDIRECTED PRN PRN Reason: pain from hemmorrhoids Last Admin: 02/05/18 11:43 Dose: 1 applic Prednisone (Prednisone) 20 mg PO DAILY [facility] Last Admin: 02/07/18 08:17 Dose: 20 mg Sodium Chloride ([place] Nasal [place]) 5 ml NASBOTH ASDIRECTED PRN PRN Reason: Dryness Sodium Chloride (Saline Flush) 10 ml FLUSH ASDIRECTED PRN PRN Reason: Keep Vein Open Last Admin: 02/07/18 08:19 Dose: 10 ml Sodium Chloride (Saline Flush) 10 ml FLUSH ASDIRECTED PRN PRN Reason: Keep Vein Open Last Admin: 02/05/18 07:47 Dose: 10 ml Tamsulosin HCl (Flomax) 0.8 mg PO DAILY [facility] Last Admin: 02/07/18 08:17 Dose: 0.8 mg Vit C/Vit E/Zinc/Copper/Lutein (Ocuvite Lutein) 1 each PO DAILY [facility] Last Admin: 02/07/18 08:17 Dose: 1 each Discontinued Medications Levofloxacin/Dextrose 500 mg/ (Premix) 100 mls @ 100 mls/hr IV Q48H [facility] Stop: 02/03/18 18:59 Last Admin: 02/03/18 18:00 Dose: 100 mls/hr Piperacillin Sod/Tazobactam (Sod 3.375 gm/ Sodium Chloride) 100 mls @ 200 mls/ hr IV Q6H [facility] Stop: 02/04/18 11:29 Last Admin: 02/04/18 11:14 Dose: 200 mls/hr - Exam Quality Assessment: Reports: Supplemental Oxygen, DVT Prophylaxis (Lovenox). Denies: Central Line/PICC, Urine Catheter, Skin Breakdown General: Reports: Alert, Oriented, Cooperative, No Acute Distress HEENT: Reports: Pupils Equal, Pupils Reactive, EOMI, Mucous Membr. Moist/Rebecca, Other (Patient wearing glasses. Moderate to [id number] with no hearing aids) Neck: Reports: Supple, Trachea Midline, No JVD, No Thyromegaly, Carotid Bruit ( Bilateral carotid bruitsmild). Denies: Lymphadenopathy Lungs: Reports: Clear to Auscultation, Normal Respiratory Effort, Decreased Breath Sounds (Stable diffuse bilateral). Denies: Rhonchi, Rub, Wheezing Cardiovascular: Reports: Regular Rate, Regular Rhythm, No Murmurs. Denies: Gallops, Rubs GI/Abdominal Exam: Normal Bowel Sounds, Soft, Non-Tender, No Organomegaly, No Distention, No Abnormal Bruit, No Mass, Other (Obese). No: Guarding (Male) Exam: Deferred Rectal (Males) Exam: Deferred Back Exam: Reports: Normal Inspection, Full Range of Motion. Denies: CVA Tenderness (L), CVA Tenderness (R), Muscle Spasm Extremities: Normal Range of Motion, Non-Tender, Normal Capillary Refill, Pedal Edema (Table mild to moderate bilateral lymphedema of the lower extremities with Abundio wraps in place), Other (Dorsal hand ecchymosis bilaterally with diffuse skin atrophy). No: Gumaro's Sign Skin: Reports: Warm, Dry, Intact, Ecchymosis (As above) Neurological: Reports: No New Focal Deficit Psy/Mental Status: Reports: Alert, Normal Affect, Normal Mood. Denies: Agitated , Hallucinations, Withdrawal Symptoms
== END 2018-02-07 14:17 | disposition home health service (06) | DRG 291 ==
LOC: LL.MS 16:14
PROVIDERS: ADMIT Family Medicine; ATTEND Family Medicine
DX: I13.0 Hypertensive heart and chronic kidney disease with heart failure and stage 1 through stage 4 chronic kidney disease, or unspecified chronic kidney disease (principal); J18.9 Pneumonia, unspecified organism; J44.0 Chronic obstructive pulmonary disease with (acute) lower respiratory infection; J44.1 Chronic obstructive pulmonary disease with (acute) exacerbation; G47.30 Sleep apnea, unspecified; Z99.81 Dependence on supplemental oxygen; I50.9 Heart failure, unspecified; I25.10 Atherosclerotic heart disease of native coronary artery without angina pectoris; K21.9 Gastro-esophageal reflux disease without esophagitis; E66.9 Obesity, unspecified; Z68.30 Body mass index [BMI] 30.0-30.9, adult; D50.9 Iron deficiency anemia, unspecified; D51.9 Vitamin B12 deficiency anemia, unspecified; N18.9 Chronic kidney disease, unspecified; D63.1 Anemia in chronic kidney disease; E11.21 Type 2 diabetes mellitus with diabetic nephropathy; E11.22 Type 2 diabetes mellitus with diabetic chronic kidney disease; E78.5 Hyperlipidemia, unspecified; E88.09 Other disorders of plasma-protein metabolism, not elsewhere classified; M19.90 Unspecified osteoarthritis, unspecified site; Z79.52 Long term (current) use of systemic steroids; Z79.899 Other long term (current) drug therapy; Z79.4 Long term (current) use of insulin; Z87.891 Personal history of nicotine dependence
CPT/HCPCS: 36415; 71046; 80053; 82550; 82553; 82962; 83735; 83880; 84484; 84550; 85025; 85610; 85730; 93306; 94640; 97110-GO; 97161-GP; 97165-GO; 97530-GO; 97530-GP; 97535-GO; A9270-GY; J1650; J1815-GY; J1940; J1956; J2543; J7050

== ENCOUNTER 2018-09-03 12:32 | Inpatient (IN) | payer MEDICARE, BC ==
--- NOTE | 2018-09-03 12:52 | EDM.PDOC ---
ED HPI GENERAL MEDICAL PROBLEM - General Chief Complaint: General Stated Complaint: chills, weakness Time Seen by Provider: 09/03/18 12:35 Source of Information: Reports: Patient, Family History Limitations: Reports: No Limitations - History of Present Illness INITIAL COMMENTS - FREE TEXT/NARRATIVE: Patient is a 78-year-old was brought in by and daughter for evaluation recently has had a chill , he has needed increased oxygen and was brought in for evaluation patient was recently discharged from [facility] home has a history of COPD weakness and shortness of breath Onset: Other (Today's) Duration: Day(s):, Getting Worse Location: Reports: Chest, Generalized Severity: Moderate Improves with: Reports: Medication Worsens with: Reports: Breathing, Movement Context: Reports: Activity Associated Symptoms: Reports: Fever/Chills, Shortness of Breath, Weakness Treatments [employer]: Reports: Other Medication(s), Oxygen - Related Data Allergies Allergy/AdvReac Type Severity Reaction Status Date / Time celecoxib Allergy Cannot Verified 09/03/18 12:59 Remember diltiazem Allergy Cannot Verified 09/03/18 12:59 Remember Aonfoni-Htj-Cqc Reductase Allergy Muscle Verified 09/03/18 12:59 Inhibitor Aches tiotropium bromide Allergy URINARY Verified 09/03/18 12:59 [From [facility] with RETENTION [facility]i[employer]] Home Meds: Home Meds Arformoterol [Brovana] 2 ml INH BID 05/04/14 [History] Budesonide [Pulmicort] 2 ml INH BID 05/04/14 [History] Furosemide 40 mg PO DAILY 05/04/14 [History] Gabapentin [Neurontin] 300 mg PO TID 05/04/14 [History] Multivitamin [Multivitamins] 1 tab PO DAILY 05/04/14 [History] Omeprazole 20 mg PO BID 05/04/14 [History] Isosorbide Mononitrate [Imdur] 60 mg PO DAILY 10/26/16 [History] Allopurinol [Zyloprim] 300 mg PO QAM 06/13/17 [History] Cholecalciferol (Vitamin D3) [Vitamin D3] 1,000 unit PO DAILY 06/13/17 [History] Docusate Sodium [Colace] 100 mg PO BID 12/28/17 [History] Cyanocobalamin (Vitamin B-12) [Vitamin B-12] 1,000 mcg SL DAILY #100 tab.subl [Rx] Acetaminophen [Tylenol] 650 mg PO Q4H PRN 05/13/18 [History] Albuterol/Ipratropium [DuoNeb 3.0-0.5 MG/3 ML] 3 ml NEB QID 05/13/18 [History] Carvedilol 3 tab PO BIDMEALS 05/13/18 [History] Magnesium Oxide [Magnesium] 400 mg PO BID 05/13/18 [History] Tamsulosin HCl [Flomax] 0.4 mg PO DAILY 06/13/18 [History] Ferrous Sulfate 325 mg PO BID tablet 06/19/18 [Rx] Insulin Detemir [Levemir Flextouch] 20 units SUBCUT BEDTIME #1 06/19/18 [Rx] Insulin Aspart [NovoLOG] 8 unit SQ TID@0800,1200,1800 09/03/18 [History] Polyvinyl Alcohol [LiquiTears 1.4% Ophth Soln] 1 ml EYEBOTH TID@0800,1200,2000 09/03/18 [History] predniSONE 20 mg PO WITHBREAKFAST 09/03/18 [History] Past Medical History HEENT History: Reports: Cataract, Hard of Hearing, Impaired Vision, Macular Degeneration, Other (See Below) Other HEENT History: Glasses, macular degeneration and diabetic retinopathy, 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 and chronic left- sided tinnitus secondary to Mnire's disease, patient has not used his hearing aides secondary to ineffectiveness Cardiovascular History: Reports: Aneurysm, Arrhythmia, CAD, Cardiomyopathy, Heart Failure, Heart Murmur, High Cholesterol, Hypertension, PVD, Other (See Below) Other Cardiovascular History: PVCs, bigeminy, complete right bundle branch block , PACs, cardiomegaly with diastolic dysfunction by echocardiogram, recurrent CHF , tricuspid valve insufficiency, infrarenal abdominal aortic aneurysm initially diagnosed in 2006, chronic lymphedema of the lower extremities Respiratory History: Reports: Bronchitis, Recurrent, COPD, Pneumonia, Recurrent , Pulmonary Fibrosis, Sleep Apnea, Other (See Below) Other Respiratory History: 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 pylori , umbilical hernia, benign hepatic cysts by CT scan on 05/26/98 Genitourinary History: Reports: Acute Renal Failure, BPH, Chronic Renal Insuffiency, Diabetic Nephropathy, Prostate Disorder, Renal Disease, Other (See Below) Other Genitourinary History: Acute renal failure with secondary hypotension secondary to NSAIDs use on 10/01/14, BPH with history of PSA elevation, end- stage renal disease-stage III, erectile dysfunction Musculoskeletal History: Reports: Arthritis, Back Pain, Chronic, Fracture, Gout , Neck Pain, Chronic, Osteoarthritis, Osteoporosis, Other (See Below) Other Musculoskeletal History: Spinal stenosis at L4-5 with disc prolapse, positive NENO however no known SLE, proximal left fibular fracture in September 2014 Neurological History: Reports: Neuropathy, Diabetic, Neuropathy, Peripheral Psychiatric History: Reports: None Endocrine/Metabolic History: Reports: Diabetes, Type II, IDDM, Osteoporosis Hematologic History: Reports: None 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/04 Dermatologic History: Reports: Venous Stasis Dermatitis - Infectious Disease History Infectious Disease History: Reports: Chicken Pox, Helicobacter Pylori, Mumps, Shingles - Past Surgical History HEENT Surgical History: Reports: Cataract Surgery, Laser Surgery, Oral Surgery, Tonsillectomy Other HEENT Surgeries/Procedures: Right cataract surgery on 05/23/03, left cataract surgery on 06/12/04, tonsillectomy at age 9, left eye YAG treatment, complete teeth extraction Cardiovascular Surgical History: Reports: None GI Surgical History: Reports: Colonoscopy, EGD Other GI Surgeries/Procedures: Last Colonoscopy and EGD on 09/25/09, small bowel series on 10/02/09 Male Surgical History: Reports: Prostatectomy, TURP-Transurethral Resection of Prostate Other Male Surgeries/Procedures: Suprapubic partial prostatectomy in September 2004 with no evidence of prostate cancer despite previous PSA elevation Neurological Surgical History: Reports: Lumbar Spine, Other (See Below) Other Neurological Surgeries/Procedures: Unknown type of back surgeries x2 in the lumbar region Musculoskeletal Surgical History: Reports: None Oncologic Surgical History: Reports: Other (See Below) Other Oncologic Surgeries/Procedures: Mohs procedure as above Dermatological Surgical History: Reports: Skin Biopsy - Past Imaging History Past Imaging History: Reports: Cardiac Echo, Carotid US, CAT Scan, DEXA Scan, Holter Monitor, MRI, PFT, Sleep Study, Stress Testing, Ultrasound, Venous Doppler, Other (See Below) Social & Family History - Family History HEENT: Reports: None Cardiac: Reports: CAD, Hypertension, KS, Other (See Below) Other Cardiac Family History: Maternal uncle with fatal KS at age 42, another maternal uncle with fatal KS at age 48, mother with hypertension, patient denies history of coronary artery disease in sister despite [place] records Respiratory: Reports: COPD, Sleep Apnea, Other (See Below) Other Respiratory Family Hisory: Brother with COPD and sleep apnea with history of tobacco use : Reports: None OBGYN: Reports: None Musculoskeletal: Reports: Arthritis, Osteoarthritis, Other (See Below) Other Musculoskeletal Family History: Brother with osteoarthritis Neurological: Reports: Cerebral Aneurysms, CVA, Neuropathy, Peripheral, Other ( See Below) Other Neurological Family History: Sister with fatal cerebral aneurysm at age 42 , maternal uncle with fatal hemorrhagic CVA at age 65 , patient denies CVA in brother despite [place] records, brother with peripheral neuropathy Psychiatric: Reports: None Endocrine/Metabolic: Reports: None Hematologic: Reports: None Immunologic: Reports: None Oncologic: Reports: Breast, Other (See Below) Other Oncologic Family History: Mother with unknown type of fatal cancer at age 65, sister with breast cancer in her 60s - Caffeine Use Caffeine Use: Reports: Coffee Caffeine Use Comment: 3-4 cups of coffee per day, 1 soda per week - Living Situation & Occupation Living situation: Reports: Occupation: Retired ED ROS GENERAL - Review of Systems Review Of Systems: See Below Constitutional: Reports: Fever, Chills, Weakness HEENT: Reports: Other (Bloody nose this morning) Respiratory: Reports: Shortness of Breath Cardiovascular: Reports: No Symptoms Endocrine: Reports: High Glucose, Polyuria GI/Abdominal: Reports: No Symptoms ( ) : Reports: Dysuria, Frequency, Urgency Musculoskeletal: Reports: Leg Pain Neurological: Reports: No Symptoms Psychiatric: Reports: No Symptoms Hematologic/Lymphatic: Reports: No Symptoms Immunologic: Reports: No Symptoms ED EXAM, GENERAL - Physical Exam Exam: See Below Exam Limited By: No Limitations General Appearance: Alert, WD/WN, Mild Distress Ears: Normal External Exam, Normal Canal, Hearing Grossly Normal, Normal TMs Nose: Normal Inspection Throat/Mouth: Normal Inspection, Normal Lips, Normal Teeth, Normal Gums, Normal Oropharynx, Normal Voice, No Airway Compromise Head: Atraumatic, Normocephalic Neck: Limited Range of Motion, Tender Lateral Respiratory/Chest: Decreased Breath Sounds, Rales (Left base) Cardiovascular: Normal Peripheral Pulses, Regular Rate, Rhythm, No Edema, No Gallop, No JVD, No Murmur, No Rub GI/Abdominal: Normal Bowel Sounds, Soft, Non-Tender, No Organomegaly, No Distention, No Abnormal Bruit, No Mass Rectal (Males) Exam: Deferred Back Exam: Decreased Range of Motion Extremities: Pedal Edema Neurological: Alert, Oriented, CN II-XII Intact, Normal Cognition, Normal Gait, Normal Reflexes, No Motor/Sensory Deficits Psychiatric: Normal Affect, Normal Mood Skin Exam: Warm, Dry, Intact, Normal Color, No Rash Lymphatic: No Adenopathy Course - Vital Signs Last Recorded V/S: Last Vital Signs Temp 99.3 F 09/03/18 12:33 Pulse 93 09/03/18 12:33 Resp 18 09/03/18 12:33 BP 146/66 H 09/03/18 12:33 Pulse Ox 96 09/03/18 12:33 - Orders/Labs/Meds Orders: Active Orders 24 hr Category Date Time Status Chest 2V [CR] Stat Exams 09/03/18 12:40 Ordered CBC WITH AUTO DIFF [HEME] Stat Lab 09/03/18 12:40 Ordered COMPREHENSIVE METABOLIC PN,CMP [CHEM] Stat Lab 09/03/18 12:40 Ordered CULTURE BLOOD [BC] Stat Lab 09/03/18 12:41 Ordered CULTURE BLOOD [BC] Stat Lab 09/03/18 12:41 Ordered INFLUENZA A+B AG SCREEN [RM] Stat Lab 09/03/18 12:41 Ordered LACTIC ACID [CHEM] Stat Lab 09/03/18 12:50 Ordered UA W/MICROSCOPIC [URIN] Stat Lab 09/03/18 12:43 Ordered Blood Culture x2 Reflex Set [OM.PC] Stat Oth 09/03/18 12:41 Ordered Departure - Departure Time of Disposition: 13:36 Disposition: Admitted As Inpatient 64 Preliminary Cause of *Q: Respiratory Failure Condition: Fair Clinical Impression: Pneumonia, UTI, Urinary tract infectious disease, Chronic respiratory failure with hypoxia, Chronic kidney disease (CKD) - Discharge Information *PRESCRIPTION DRUG MONITORING PROGRAM REVIEWED*: No *COPY OF PRESCRIPTION DRUG MONITORING REPORT IN PATIENT SG: No Referrals: Astrid Damon, REVENUE ANALYST [Primary Care Provider] - Forms: ED Department Discharge Care Plan Goals: Patient will be admitted for IV antibiotic and respiratory toilets will keep a close eye on cultures and follow-up with Dr. santana tomorrow - Problem List & Annotations (1) Urinary tract infection SNOMED Code(s): 69108007 Code(s): N39.0 - URINARY TRACT INFECTION, SITE NOT SPECIFIED Status: Acute Annotation/Comment:: Patient will be given IV antibiotics Qualifiers: Urinary tract infection type: acute cystitis Hematuria presence: with hematuria Qualified Code(s): N30.01 - Acute cystitis with hematuria (2) Leukocytosis SNOMED Code(s): 415051863, 303704647 Code(s): D72.829 - ELEVATED WHITE BLOOD CELL COUNT, UNSPECIFIED Status: Acute Annotation/Comment:: Possibly secondary to UTI/pneumonia Qualifiers: Leukocytosis type: unspecified Qualified Code(s): D72.829 - Elevated white blood cell count, unspecified (3) Pneumonia SNOMED Code(s): 766724438 Code(s): J18.9 - PNEUMONIA, UNSPECIFIED ORGANISM Status: Acute Priority: High Qualifiers: Pneumonia type: aspiration pneumonia Aspiration pneumonia type: unspecified Laterality: unspecified laterality (4) COPD (chronic obstructive pulmonary disease) SNOMED Code(s): 59526933 Code(s): J44.9 - CHRONIC OBSTRUCTIVE PULMONARY DISEASE, UNSPECIFIED Status : Chronic Priority: High Annotation/Comment:: Patient will undergo IV antibiotics bronchodilators and steroids Qualifiers: COPD type: COPD with acute lower respiratory infection Qualified Code(s): J44.0 - Chronic obstructive pulmonary disease with acute lower respiratory infection - My Orders Last 24 Hours: My Active Orders 09/03/18 12:40 Chest 2V [CR] Stat CBC WITH AUTO DIFF [HEME] Stat COMPREHENSIVE METABOLIC PN,CMP [CHEM] Stat 09/03/18 12:41 CULTURE BLOOD [BC] Stat CULTURE BLOOD [BC] Stat INFLUENZA A+B AG SCREEN [RM] Stat Blood Culture x2 Reflex Set [OM.PC] Stat 09/03/18 12:43 UA W/MICROSCOPIC [URIN] Stat 09/03/18 12:50 LACTIC ACID [CHEM] Stat - Assessment/Plan Last 24 Hours: My Active Orders 09/03/18 12:40 Chest 2V [CR] Stat CBC WITH AUTO DIFF [HEME] Stat COMPREHENSIVE METABOLIC PN,CMP [CHEM] Stat 09/03/18 12:41 CULTURE BLOOD [BC] Stat CULTURE BLOOD [BC] Stat INFLUENZA A+B AG SCREEN [RM] Stat Blood Culture x2 Reflex Set [OM.PC] Stat 09/03/18 12:43 UA W/MICROSCOPIC [URIN] Stat 09/03/18 12:50 LACTIC ACID [CHEM] Stat
[2018-09-03] MEDS ORDERED: Acetaminophen 325 MG Tab PO PRN ×2 (13:40→13:57)
[2018-09-03] MEDS ORDERED: Ibuprofen 400 MG Tab PO PRN (13:40)
[2018-09-03] MEDS ORDERED: Albuterol/Ipratropium 3.0-0.5 MG/3 ML Neb Soln NEB PRN (13:40)
[2018-09-03] MEDS ORDERED: Piperacillin/Tazobactam 3.375 GM in Sodium Chloride 0.9% 100 ML IV SCH (14:00)
[2018-09-03] MEDS ORDERED: Levofloxacin/Dextrose 5%-Water 500 MG in Premix Bag 1 BAG IV SCH (14:00)
[2018-09-03] MEDS: Sodium Chloride 0.9% 10 ML Syringe FLUSH PRN (14:47)
[2018-09-03] MEDS: methylPREDNISolone Sodium Succinate 125 MG/2 ML SDV IVPUSH SCH ×2 (14:47→20:35)
[2018-09-03] MEDS: Piperacillin/Tazobactam 3.375 GM in Sodium Chloride 0.9% 100 ML IV SCH ×2 (16:10→20:35)
[2018-09-03] MEDS: Albuterol/Ipratropium 3.0-0.5 MG/3 ML Neb Soln NEB SCH ×2 (16:11→20:35)
[2018-09-03] MEDS: Omeprazole 20 MG Cap.CR PO SCH (17:24)
[2018-09-03] MEDS: Arformoterol 15 MCG/2 ML Neb Soln INH SCH (17:24)
[2018-09-03] MEDS: Docusate Sodium 100 MG Cap PO SCH (17:24)
[2018-09-03] MEDS: Gabapentin 300 MG Cap PO SCH (17:24)
[2018-09-03] MEDS: Insulin Lispro 100 Units/ML 3 ML Vial SUBCUT SCH (17:24)
[2018-09-03] MEDS: Carvedilol 3.125 MG Tab PO SCH (17:25)
[2018-09-03] MEDS: Magnesium Oxide 400 MG Tab PO SCH (17:25)
[2018-09-03] MEDS: Polyvinyl Alcohol 1.4% Ophth Soln 15 ML Bottle EYEBOTH SCH (20:35)
[2018-09-03] MEDS: Insulin Glarg,Human.Rec.Analog 100 UNIT/ML ML SUBCUT SCH (20:39)
[2018-09-04] MEDS: methylPREDNISolone Sodium Succinate 125 MG/2 ML SDV IVPUSH SCH ×3 (02:48→20:49)
[2018-09-04] MEDS: Piperacillin/Tazobactam 3.375 GM in Sodium Chloride 0.9% 100 ML IV SCH ×4 (02:48→20:55)
[2018-09-04] MEDS: Sodium Chloride 0.9% 10 ML Syringe FLUSH PRN ×6 (02:48→20:59)
[2018-09-04] MEDS: Albuterol/Ipratropium 3.0-0.5 MG/3 ML Neb Soln NEB SCH ×4 (07:37→20:47)
[2018-09-04] MEDS: Omeprazole 20 MG Cap.CR PO SCH ×2 (07:47→17:51)
[2018-09-04] MEDS: Docusate Sodium 100 MG Cap PO SCH ×2 (07:47→17:48)
[2018-09-04] MEDS: Arformoterol 15 MCG/2 ML Neb Soln INH SCH ×2 (07:47→20:48)
[2018-09-04] MEDS: Carvedilol 3.125 MG Tab PO SCH ×2 (07:48→17:50)
[2018-09-04] MEDS: Gabapentin 300 MG Cap PO SCH ×3 (07:49→17:47)
[2018-09-04] MEDS: Allopurinol 100 MG Tab PO SCH (07:49)
[2018-09-04] MEDS: Magnesium Oxide 400 MG Tab PO SCH ×2 (07:49→17:48)
[2018-09-04] MEDS: Furosemide 20 MG Tab PO SCH (07:50)
[2018-09-04] MEDS: Tamsulosin 0.4 MG Cap.ER PO SCH (07:50)
[2018-09-04] MEDS: Insulin Lispro 100 Units/ML 3 ML Vial SUBCUT SCH ×3 (07:50→17:48)
[2018-09-04] MEDS: Isosorbide Mononitrate 60 MG Tab.ER PO SCH (07:50)
[2018-09-04] MEDS: Cholecalciferol (Vitamin D3) 1,000 Unit Tab PO SCH (07:50)
[2018-09-04] MEDS: Polyvinyl Alcohol 1.4% Ophth Soln 15 ML Bottle EYEBOTH SCH ×3 (07:52→22:44)
[2018-09-04] MEDS: Enoxaparin 40 MG/0.4 ML Syringe SUBCUT SCH (07:53)
[2018-09-04 07:57] LABS: CHLORIDE,CL 95 mmol/L (98-107); SODIUM,NA 134 mmol/L (136-145)
[2018-09-04] MEDS ORDERED: Insulin Lispro 100 Units/ML 3 ML Vial SUBCUT ONE (11:31)
[2018-09-04] MEDS ORDERED: Insulin Isophane NPH, Human 100 Units/ML 3 ML Vial SQ ONE (12:00)
[2018-09-04] MEDS: metroNIDAZOLE/Normal Saline 500 MG in Premix Bag 1 BAG IV SCH ×2 (12:21→20:50)
--- NOTE | 2018-09-04 20:01 | PCM.PN ---
- General Info Date of Service: 09/04/18 Functional Status: Reports: Pain Controlled - Review of Systems General: Reports: Weakness HEENT: Reports: No Symptoms Pulmonary: Reports: No Symptoms Cardiovascular: Reports: No Symptoms Gastrointestinal: Reports: No Symptoms Genitourinary: Reports: No Symptoms Musculoskeletal: Reports: No Symptoms Skin: Reports: No Symptoms Neurological: Reports: Weakness Psychiatric: Reports: No Symptoms - Patient Data Vitals - Most Recent: Last Vital Signs Temp 98.5 F 09/04/18 16:00 Pulse 85 09/04/18 17:50 Resp 20 09/04/18 16:00 BP 108/52 L 09/04/18 17:50 Pulse Ox 97 09/04/18 16:00 Weight - Most Recent: 285 lb 14.398 oz I&O - Last 24 Hours: Intake & Output 09/04/18 09/04/18 09/04/18 06:59 14:59 22:59 Intake Total 360 1400 300 Output Total 325 300 Balance 35 1400 0 Lab Results Last 24 Hours: Laboratory Results - last 24 hr 09/03/18 09/04/18 09/04/18 Range/Units 20:12 07:26 07:26 WBC (4.0-10.2) K/uL RBC (4.33-5.41) M/uL Hgb (13.1-16.8) g/dL Hct (39.0-49.0) % MCV (84.0-98.0) fL MCH (28.2-33.3) pg MCHC (31.7-36.0) g/dL RDW (11.2-14.1) % Plt Count (150-350) K/uL Neut % (Auto) (45.0-80.0) % Lymph % (Auto) (10.0-50.0) % [place] % (Auto) (2.0-14.0) % Eos % (Auto) (0.0-5.0) % Baso % (Auto) (0.0-2.0) % Neut # (Auto) (1.40-7.00) K/uL Lymph # (Auto) (0.50-3.50) K/uL [place] # (Auto) (0.00-1.00) K/uL Eos # (Auto) (0.00-0.50) K/uL Baso # (Auto) (0.00-0.20) K/uL Sodium 134 L (136-145) mmol/L Potassium 3.9 (3.5-5.1) mmol/L Chloride 95 L (98-107) mmol/L Carbon Dioxide 32.0 (21.0-32.0) mmol/L BUN 25 H (7-18) mg/dL Creatinine 1.13 (0.51-1.17) mg/dL Est Cr Clr Drug Dosing 53.97 mL/min Estimated GFR (MDRD) > 60 mL/min Glucose 350 H (74-106) mg/dL POC Glucose 389 H* (65-110) mg/dl Calcium 9.0 (8.5-10.1) mg/dL C-Reactive Protein 22.2 H (<=0.9) mg/dL 09/04/18 09/04/18 09/04/18 Range/Units 07:26 07:38 11:06 WBC 15.7 H (4.0-10.2) K/uL RBC 3.03 L (4.33-5.41) M/uL Hgb 10.9 L (13.1-16.8) g/dL Hct 33.4 L (39.0-49.0) % MCV 110.2 H (84.0-98.0) fL MCH 36.0 H (28.2-33.3) pg MCHC 32.6 (31.7-36.0) g/dL RDW 15.7 H (11.2-14.1) % Plt Count 174 (150-350) K/uL Neut % (Auto) 86.5 H (45.0-80.0) % Lymph % (Auto) 10.3 (10.0-50.0) % [place] % (Auto) 3.1 (2.0-14.0) % Eos % (Auto) 0.0 (0.0-5.0) % Baso % (Auto) 0.1 (0.0-2.0) % Neut # (Auto) 13.56 H (1.40-7.00) K/uL Lymph # (Auto) 1.61 (0.50-3.50) K/uL [place] # (Auto) 0.49 (0.00-1.00) K/uL Eos # (Auto) 0.00 (0.00-0.50) K/uL Baso # (Auto) 0.01 (0.00-0.20) K/uL Sodium (136-145) mmol/L Potassium (3.5-5.1) mmol/L Chloride (98-107) mmol/L Carbon Dioxide (21.0-32.0) mmol/L BUN (7-18) mg/dL Creatinine (0.51-1.17) mg/dL Est Cr Clr Drug Dosing mL/min Estimated GFR (MDRD) mL/min Glucose (74-106) mg/dL POC Glucose 353 H* 472 H* (65-110) mg/dl Calcium (8.5-10.1) mg/dL C-Reactive Protein (<=0.9) mg/dL 09/04/18 Range/Units 16:57 WBC (4.0-10.2) K/uL RBC (4.33-5.41) M/uL Hgb (13.1-16.8) g/dL Hct (39.0-49.0) % MCV (84.0-98.0) fL MCH (28.2-33.3) pg MCHC (31.7-36.0) g/dL RDW (11.2-14.1) % Plt Count (150-350) K/uL Neut % (Auto) (45.0-80.0) % Lymph % (Auto) (10.0-50.0) % [place] % (Auto) (2.0-14.0) % Eos % (Auto) (0.0-5.0) % Baso % (Auto) (0.0-2.0) % Neut # (Auto) (1.40-7.00) K/uL Lymph # (Auto) (0.50-3.50) K/uL [place] # (Auto) (0.00-1.00) K/uL Eos # (Auto) (0.00-0.50) K/uL Baso # (Auto) (0.00-0.20) K/uL Sodium (136-145) mmol/L Potassium (3.5-5.1) mmol/L Chloride (98-107) mmol/L Carbon Dioxide (21.0-32.0) mmol/L BUN (7-18) mg/dL Creatinine (0.51-1.17) mg/dL Est Cr Clr Drug Dosing mL/min Estimated GFR (MDRD) mL/min Glucose (74-106) mg/dL POC Glucose 388 H* (65-110) mg/dl Calcium (8.5-10.1) mg/dL C-Reactive Protein (<=0.9) mg/dL Murali Results Last 24 Hours: Microbiology 09/03/18 13:04 Aerobic Blood Culture - Preliminary Blood - Venous - Lab Draw NO GROWTH AFTER 1 DAY Anaerobic Blood Culture - Preliminary NO GROWTH AFTER 1 DAY 09/03/18 12:50 Aerobic Blood Culture - Preliminary Blood - Venous NO GROWTH AFTER 1 DAY Anaerobic Blood Culture - Preliminary NO GROWTH AFTER 1 DAY Med Orders - Current: Current Medications Acetaminophen (Tylenol) 650 mg PO Q4H PRN PRN Reason: Pain (Mild 1-3)/fever Albuterol/Ipratropium (Duoneb 3.0-0.5 Mg/3 Ml) 3 ml NEB Q4H PRN PRN Reason: Dyspnea Albuterol/Ipratropium (Duoneb 3.0-0.5 Mg/3 Ml) 3 ml NEB QID [facility] Last Admin: 09/04/18 15:34 Dose: 3 ml Allopurinol (Zyloprim) 300 mg PO DAILY [facility] Last Admin: 09/04/18 07:49 Dose: 300 mg Arformoterol Tartrate (Brovana) 15 mcg INH Q12HR [facility] Artificial Tears (Liquitears 1.4% Ophth Soln) 0 ml EYEBOTH TID@0800,1200,2000 [facility] Last Admin: 09/04/18 12:19 Dose: 1 drop Carvedilol (Coreg) 9.375 mg PO BID [facility] Last Admin: 09/04/18 17:50 Dose: 9.375 mg Cholecalciferol (Vitamin D3) 1,000 units PO DAILY [facility] Last Admin: 09/04/18 07:50 Dose: 1,000 units Docusate Sodium (Colace) 100 mg PO BID [facility] Last Admin: 09/04/18 17:48 Dose: 100 mg Enoxaparin Sodium (Lovenox) 40 mg SUBCUT DAILY [facility] Last Admin: 09/04/18 07:53 Dose: 40 mg Furosemide (Lasix) 40 mg PO DAILY [facility] Last Admin: 09/04/18 07:50 Dose: 40 mg Gabapentin (Neurontin) 300 mg PO TID [facility] Last Admin: 09/04/18 17:47 Dose: 300 mg Piperacillin Sod/Tazobactam (Sod 3.375 gm/ Sodium Chloride) 100 mls @ 200 mls/ hr IV Q6H [facility] Last Admin: 09/04/18 15:35 Dose: 200 mls/hr Metronidazole 500 mg/ Premix 100 mls @ 100 mls/hr IV Q8H [facility] Last Admin: 09/04/18 12:21 Dose: 100 mls/hr Ibuprofen (Motrin) 400 mg PO Q6H PRN PRN Reason: Pain (mild 1-3) Insulin Glargine (Lantus) 20 unit SUBCUT BEDTIME [facility] Last Admin: 09/03/18 20:39 Dose: 20 units Insulin Human Lispro (Humalog) 8 unit SUBCUT TID@0800,1200,1800 [facility] Last Admin: 09/04/18 17:48 Dose: 8 unit Insulin Human NPH (Humulin N) 30 unit SQ Q12HR [facility] Isosorbide Mononitrate (Imdur) 60 mg PO DAILY [facility] Last Admin: 09/04/18 07:50 Dose: 60 mg Magnesium Oxide (Magnesium Oxide) 400 mg PO BID [facility] Last Admin: 09/04/18 17:48 Dose: 400 mg Methylprednisolone Sodium Succinate (Solu-Medrol) 80 mg IVPUSH Q12HR [facility] Omeprazole (Omeprazole) 20 mg PO BID [facility] Last Admin: 09/04/18 17:51 Dose: 20 mg Sodium Chloride (Saline Flush) 10 ml FLUSH ASDIRECTED PRN PRN Reason: Keep Vein Open Last Admin: 09/04/18 15:34 Dose: 10 ml Sodium Chloride (Saline Flush) 10 ml FLUSH Q12HR [facility] Tamsulosin HCl (Flomax) 0.4 mg PO DAILY [facility] Last Admin: 09/04/18 07:50 Dose: 0.4 mg Discontinued Medications Arformoterol Tartrate (Brovana) 15 mcg INH BID [facility] Last Admin: 09/04/18 07:47 Dose: 15 mcg Carvedilol (Coreg) 9.375 mg PO BIDMEALS [facility] Last Admin: 09/04/18 07:48 Dose: 9.375 mg Levofloxacin/Dextrose 500 mg/ (Premix) 100 mls @ 100 mls/hr IV Q24H [facility] Last Admin: 09/03/18 14:47 Dose: 100 mls/hr Piperacillin Sod/Tazobactam (Sod 3.375 gm/ Sodium Chloride) 100 mls @ 200 mls/ hr IV Q6H [facility] Last Admin: 09/03/18 16:35 Dose: Not Given Insulin Human Lispro (Humalog) 6 unit SUBCUT NOW ONE Stop: 09/04/18 11:32 Last Admin: 09/04/18 12:21 Dose: 6 units Insulin Human NPH (Humulin N) 30 unit SQ ONETIME ONE Stop: 09/04/18 12:01 Last Admin: 09/04/18 12:23 Dose: 30 unit Methylprednisolone Sodium Succinate (Solu-Medrol) 125 mg IVPUSH Q6H [facility] Last Admin: 09/04/18 07:53 Dose: 125 mg - Exam Quality Assessment: DVT Prophylaxis General: Alert, Cooperative, No Acute Distress HEENT: Mucous Membr. Moist/[place] Neck: Trachea Midline, No JVD Lungs: Normal Respiratory Effort, Decreased Breath Sounds Cardiovascular: Regular Rate, Regular Rhythm GI/Abdominal Exam: Soft, Non-Tender, No Distention (Male) Exam: Deferred Back Exam: Normal Inspection Extremities: Non-Tender, Pedal Edema Skin: Warm, Dry, Intact Neurological: No New Focal Deficit Psy/Mental Status: Alert, Normal Affect, Normal Mood - Problem List & Annotations (1) Comfort measures only status SNOMED Code(s): 24908590265570 Code(s): Z51.5 - ENCOUNTER FOR PALLIATIVE CARE Status: Acute Priority: Medium Current Visit: No (2) DNI (do not intubate) SNOMED Code(s): 248054728 Code(s): Z78.9 - OTHER SPECIFIED HEALTH STATUS Status: Acute Current Visit: No (3) DNR (do not resuscitate) Status: Acute Current Visit: No (4) Pneumonia SNOMED Code(s): 826785227 Code(s): J18.9 - PNEUMONIA, UNSPECIFIED ORGANISM Status: Acute Priority: High Current Visit: No Qualifiers: Pneumonia type: aspiration pneumonia Aspiration pneumonia type: unspecified Laterality: unspecified laterality (5) UTI, Urinary tract infectious disease SNOMED Code(s): 71578555 Code(s): N39.0 - URINARY TRACT INFECTION, SITE NOT SPECIFIED Status: Acute Current Visit: No (6) Anemia SNOMED Code(s): 987344314 Code(s): D64.9 - ANEMIA, UNSPECIFIED Status: Chronic Priority: Medium Current Visit: No Qualifiers: Anemia type: iron deficiency Annotation/Comment:: Both iron and vitamin B-12 deficiency verified during recent acute care hospitalization. Continue supplementation as per discharge orders with close follow-up by his regular provider. Note hemoglobin improved from 9.1 during recent acute care. Additional history of renal insufficiency and chronic diseases as contributing factors to his anemia. (7) COPD (chronic obstructive pulmonary disease) SNOMED Code(s): 24953940 Code(s): J44.9 - CHRONIC OBSTRUCTIVE PULMONARY DISEASE, UNSPECIFIED Status : Chronic Priority: High Current Visit: No Qualifiers: COPD type: COPD with acute lower respiratory infection Qualified Code(s): J44.0 - Chronic obstructive pulmonary disease with acute lower respiratory infection Annotation/Comment:: Patient will undergo IV antibiotics bronchodilators and steroids (8) Chronic GERD SNOMED Code(s): 186949645, 858385723 Code(s): K21.9 - GASTRO-ESOPHAGEAL REFLUX DISEASE WITHOUT ESOPHAGITIS Status: Chronic Priority: Medium Current Visit: No (9) Chronic diastolic (congestive) heart failure SNOMED Code(s): 716513262, 621816693 Code(s): I50.32 - CHRONIC DIASTOLIC (CONGESTIVE) HEART FAILURE Status: Chronic Priority: Medium Current Visit: No (10) Chronic kidney disease (CKD) SNOMED Code(s): 136875543 Code(s): N18.9 - CHRONIC KIDNEY DISEASE, UNSPECIFIED Status: Chronic Priority: High Current Visit: No Qualifiers: Chronic kidney disease stage: unspecified stage Qualified Code(s): N18.9 - Chronic kidney disease, unspecified Annotation/Comment:: History of diabetic nephropathy. Continue to observe closely. (11) Chronic respiratory failure with hypoxia SNOMED Code(s): 087127847 Code(s): J96.11 - CHRONIC RESPIRATORY FAILURE WITH HYPOXIA Status: Chronic Priority: High Current Visit: No (12) Coronary artery disease SNOMED Code(s): 42336059 Code(s): I25.10 - ATHSCL HEART DISEASE OF [place] CORONARY ARTERY W/O ANG PCTRS Status: Chronic Priority: Medium Current Visit: No Qualifiers: Coronary Disease-Associated Artery/Lesion type: [place] artery [place] vs. transplanted heart: [place] heart Associated angina: without angina Qualified Code(s): I25.10 - Atherosclerotic heart disease of [place] coronary artery without angina pectoris Annotation/Comment:: As above (13) Diabetes mellitus SNOMED Code(s): 03662221 Code(s): E11.9 - TYPE 2 DIABETES MELLITUS WITHOUT COMPLICATIONS Status: Chronic Priority: Medium Current Visit: No (14) Dyslipidemia SNOMED Code(s): 284018031 Code(s): E78.5 - HYPERLIPIDEMIA, UNSPECIFIED Status: Chronic Priority: Medium Current Visit: No Annotation/Comment:: Currently not under therapy. Weight loss in moderation advisable as above. Continue to observe closely by his regular provider. (15) Exertional dyspnea SNOMED Code(s): 36494588 Code(s): R06.09 - OTHER FORMS OF DYSPNEA Status: Chronic Priority: Medium Current Visit: No (16) Gout SNOMED Code(s): 92878162 Code(s): M10.9 - GOUT, UNSPECIFIED Status: Chronic Priority: Low Current Visit: No Qualifiers: Gout site: unspecified site Gout etiology: due to renal impairment Chronicity: chronic Presence of tophus: without tophus Qualified Code(s): M1A.30X0 - Chronic gout due to renal impairment, unspecified site, without tophus (tophi) (17) HTN, Benign hypertension SNOMED Code(s): 10916589 Code(s): I10 - ESSENTIAL (PRIMARY) HYPERTENSION Status: Chronic Priority : Medium Current Visit: No Annotation/Comment:: Continue on current blood pressure medications (18) Hypomagnesemia SNOMED Code(s): 509769914 Code(s): E83.42 - HYPOMAGNESEMIA Status: Chronic Priority: Medium Current Visit: No Onset Date: 06/29/16 Annotation/Comment:: Continue Magnesium oxide with caution secondary to his renal function (19) Neuropathy SNOMED Code(s): 332533580 Code(s): G62.9 - POLYNEUROPATHY, UNSPECIFIED Status: Chronic Priority: Medium Current Visit: No (20) Obesity (BMI 30-39.9) SNOMED Code(s): 879881547, 604703900 Code(s): E66.9 - OBESITY, UNSPECIFIED Status: Chronic Priority: Medium Current Visit: No Annotation/Comment:: Weight loss in moderation advisable. (21) Obstructive sleep apnea on CPAP SNOMED Code(s): 27020138 Code(s): G47.33 - OBSTRUCTIVE SLEEP APNEA (ADULT) (PEDIATRIC); Z99.89 - DEPENDENCE ON OTHER ENABLING MACHINES AND DEVICES Status: Chronic Priority: Low Current Visit: No Annotation/Comment:: using CPAP machinge at night, will continue (22) Osteoarthritis SNOMED Code(s): 031912446 Code(s): M19.90 - UNSPECIFIED OSTEOARTHRITIS, UNSPECIFIED SITE Status: Chronic Priority: Medium Current Visit: No Annotation/Comment:: Osteoarthritis stable during this hospitalization with no gout attacks despite elevated uric acid level with known previous history of hyperuricemia. (23) Oxygen dependent SNOMED Code(s): 464168148725 Code(s): Z99.81 - DEPENDENCE ON SUPPLEMENTAL OXYGEN Status: Chronic Priority: High Current Visit: No (24) Physical deconditioning SNOMED Code(s): 16991026932662 Code(s): R53.81 - OTHER [place] Status: Chronic Priority: High Current Visit: No (25) Weakness generalized SNOMED Code(s): 58954930 Code(s): R53.1 - WEAKNESS Status: Chronic Priority: High Current Visit : No - Problem List Review Problem List Initiated/Reviewed/Updated: Yes - My Orders Last 24 Hours: My Active Orders 09/04/18 11:56 CULTURE SPUTUM + SMEAR [RM] Routine 09/04/18 11:57 CULTURE URINE [RM] Routine 09/04/18 12:00 metroNIDAZOLE/Normal Saline [Flagyl 500 MG in NS 100 ML] 500 mg Premix Bag 1 bag IV Q8H 09/04/18 18:00 Carvedilol [Coreg] 9.375 mg PO BID 09/04/18 20:00 Arformoterol [Brovana] 15 mcg INH Q12HR Insulin NPH Human Isophane [HumuLIN N] 30 unit SQ Q12HR Sodium Chloride 0.9% [Saline Flush] 10 ml FLUSH Q12HR methylPREDNISolone Sod Succ [Solu-MEDROL] 80 mg IVPUSH Q12HR 09/05/18 05:11 CBC WITH AUTO DIFF [HEME] DAILY CMP [COMPREHENSIVE METABOLIC PN,CMP] [CHEM] DAILY CRP [C-REACTIVE PROTEIN] [CHEM] DAILY MAGNESIUM [CHEM] Routine SEDIMENTATION RATE AUTO [HEME] Routine URIC ACID [CHEM] Routine 09/05/18 08:00 Consult to Case Management/Bilingual Sales Assistant [CONS] Routine Consult to Occupational Therapy [OT Evaluation and Treatment] [CONS] Routine Consult to Physical Therapy [PT Evaluation and Treatment] [CONS] Routine 09/06/18 05:11 CBC WITH AUTO DIFF [HEME] DAILY CMP [COMPREHENSIVE METABOLIC PN,CMP] [CHEM] DAILY CRP [C-REACTIVE PROTEIN] [CHEM] DAILY 09/07/18 05:11 CBC WITH AUTO DIFF [HEME] DAILY CMP [COMPREHENSIVE METABOLIC PN,CMP] [CHEM] DAILY CRP [C-REACTIVE PROTEIN] [CHEM] DAILY - Plan Plan:: 09/04/18 Dusty Seaman MD Feels okay. Weak. Continue IV antibiotics. Awaiting C&S results.
[2018-09-04] MEDS: Sodium Chloride 0.9% 10 ML Syringe FLUSH SCH (20:49)
[2018-09-04] MEDS: Insulin Isophane NPH, Human 100 Units/ML 3 ML Vial SQ SCH (22:42)
[2018-09-04] MEDS: Insulin Glarg,Human.Rec.Analog 100 UNIT/ML ML SUBCUT SCH (22:44)
[2018-09-05] MEDS: Piperacillin/Tazobactam 3.375 GM in Sodium Chloride 0.9% 100 ML IV SCH ×2 (03:38→08:41)
[2018-09-05] MEDS: metroNIDAZOLE/Normal Saline 500 MG in Premix Bag 1 BAG IV SCH ×3 (03:38→19:42)
[2018-09-05] MEDS: Sodium Chloride 0.9% 10 ML Syringe FLUSH PRN (03:39)
[2018-09-05] MEDS: Albuterol/Ipratropium 3.0-0.5 MG/3 ML Neb Soln NEB SCH ×4 (08:20→19:42)
[2018-09-05] MEDS: methylPREDNISolone Sodium Succinate 125 MG/2 ML SDV IVPUSH SCH ×2 (08:24→19:44)
[2018-09-05] MEDS: Arformoterol 15 MCG/2 ML Neb Soln INH SCH ×2 (08:26→19:42)
[2018-09-05] MEDS: Cholecalciferol (Vitamin D3) 1,000 Unit Tab PO SCH (08:26)
[2018-09-05] MEDS: Carvedilol 3.125 MG Tab PO SCH ×2 (08:27→17:05)
[2018-09-05] MEDS: Docusate Sodium 100 MG Cap PO SCH ×2 (08:27→17:07)
[2018-09-05] MEDS: Tamsulosin 0.4 MG Cap.ER PO SCH (08:27)
[2018-09-05] MEDS: Gabapentin 300 MG Cap PO SCH ×3 (08:28→17:06)
[2018-09-05] MEDS: Omeprazole 20 MG Cap.CR PO SCH ×2 (08:28→17:07)
[2018-09-05] MEDS: Magnesium Oxide 400 MG Tab PO SCH ×2 (08:28→17:06)
[2018-09-05] MEDS: Furosemide 20 MG Tab PO SCH (08:29)
[2018-09-05] MEDS: Isosorbide Mononitrate 60 MG Tab.ER PO SCH (08:29)
[2018-09-05] MEDS: Insulin Lispro 100 Units/ML 3 ML Vial SUBCUT SCH ×3 (08:30→17:04)
[2018-09-05] MEDS: Insulin Isophane NPH, Human 100 Units/ML 3 ML Vial SQ SCH ×2 (08:32→19:51)
[2018-09-05] MEDS: Enoxaparin 40 MG/0.4 ML Syringe SUBCUT SCH (08:33)
[2018-09-05] MEDS: Polyvinyl Alcohol 1.4% Ophth Soln 15 ML Bottle EYEBOTH SCH ×3 (08:33→19:55)
[2018-09-05] MEDS: Sodium Chloride 0.9% 10 ML Syringe FLUSH SCH ×2 (08:38→19:53)
[2018-09-05] MEDS: Allopurinol 100 MG Tab PO SCH (08:40)
[2018-09-05] MEDS ORDERED: Insulin Lispro 100 Units/ML 3 ML Vial SUBCUT ONE ×2 (14:15→21:08)
[2018-09-05] MEDS: Nitrofurantoin Monohydrate/Macrocrystalline 100 MG Cap PO SCH (17:07)
[2018-09-05] MEDS: Insulin Glarg,Human.Rec.Analog 100 UNIT/ML ML SUBCUT SCH (19:53)
--- NOTE | 2018-09-05 23:49 | PCM.PN ---
- General Info Date of Service: 09/05/18 Functional Status: Reports: Pain Controlled, Tolerating Diet, Urinating, Incentive Spirometry - Review of Systems General: Reports: No Symptoms HEENT: Reports: No Symptoms Pulmonary: Reports: No Symptoms Cardiovascular: Reports: No Symptoms Gastrointestinal: Reports: No Symptoms Genitourinary: Reports: No Symptoms Musculoskeletal: Reports: No Symptoms Skin: Reports: No Symptoms Neurological: Reports: No Symptoms Psychiatric: Reports: No Symptoms - Patient Data Vitals - Most Recent: Last Vital Signs Temp 98.3 F 09/05/18 20:00 Pulse 71 09/05/18 20:00 Resp 18 09/05/18 20:00 BP 161/86 H 09/05/18 20:00 Pulse Ox 98 09/05/18 20:00 Weight - Most Recent: 281 lb 8 oz I&O - Last 24 Hours: Intake & Output 09/05/18 09/05/18 09/06/18 14:59 22:59 06:59 Intake Total 1910 670 Balance 1910 670 Lab Results Last 24 Hours: Laboratory Results - last 24 hr 09/05/18 09/05/18 09/05/18 Range/Units 03:43 06:55 06:55 WBC 14.6 H (4.0-10.2) K/uL RBC 2.71 L (4.33-5.41) M/uL Hgb 9.9 L (13.1-16.8) g/dL Hct 29.9 L (39.0-49.0) % MCV 110.3 H (84.0-98.0) fL MCH 36.5 H (28.2-33.3) pg MCHC 33.1 (31.7-36.0) g/dL RDW 15.6 H (11.2-14.1) % Plt Count 170 (150-350) K/uL Neut % (Auto) 83.0 H (45.0-80.0) % Lymph % (Auto) 9.1 L (10.0-50.0) % Lucas % (Auto) 7.8 (2.0-14.0) % Eos % (Auto) 0.0 (0.0-5.0) % Baso % (Auto) 0.1 (0.0-2.0) % Neut # (Auto) 12.10 H (1.40-7.00) K/uL Lymph # (Auto) 1.32 (0.50-3.50) K/uL Lucas # (Auto) 1.13 H (0.00-1.00) K/uL Eos # (Auto) 0.00 (0.00-0.50) K/uL Baso # (Auto) 0.02 (0.00-0.20) K/uL ESR 120 H (0-20) mm/hr Sodium 134 L (136-145) mmol/L Potassium 3.6 (3.5-5.1) mmol/L Chloride 96 L (98-107) mmol/L Carbon Dioxide 29.7 (21.0-32.0) mmol/L BUN 35 H (7-18) mg/dL Creatinine 1.34 H (0.51-1.17) mg/dL Est Cr Clr Drug Dosing 45.51 mL/min Estimated GFR (MDRD) 51 mL/min Glucose 341 H (74-106) mg/dL POC Glucose 367 H* (65-110) mg/dl Uric Acid 5.8 (2.6-7.2) mg/dL Calcium 8.4 L (8.5-10.1) mg/dL Magnesium 1.9 (1.8-2.4) mg/dL Total Bilirubin 0.3 (0.2-1.0) mg/dL AST 14 L (15-37) U/L ALT 33 (12-78) U/L Alkaline Phosphatase 70 (46-116) IU/L C-Reactive Protein 12.1 H (<=0.9) mg/dL Total Protein 5.9 L (6.4-8.2) g/dL Albumin 2.3 L (3.4-5.0) g/dL 09/05/18 09/05/18 09/05/18 Range/Units 07:19 11:07 14:28 WBC (4.0-10.2) K/uL RBC (4.33-5.41) M/uL Hgb (13.1-16.8) g/dL Hct (39.0-49.0) % MCV (84.0-98.0) fL MCH (28.2-33.3) pg MCHC (31.7-36.0) g/dL RDW (11.2-14.1) % Plt Count (150-350) K/uL Neut % (Auto) (45.0-80.0) % Lymph % (Auto) (10.0-50.0) % Lucas % (Auto) (2.0-14.0) % Eos % (Auto) (0.0-5.0) % Baso % (Auto) (0.0-2.0) % Neut # (Auto) (1.40-7.00) K/uL Lymph # (Auto) (0.50-3.50) K/uL Lucas # (Auto) (0.00-1.00) K/uL Eos # (Auto) (0.00-0.50) K/uL Baso # (Auto) (0.00-0.20) K/uL ESR (0-20) mm/hr Sodium (136-145) mmol/L Potassium (3.5-5.1) mmol/L Chloride (98-107) mmol/L Carbon Dioxide (21.0-32.0) mmol/L BUN (7-18) mg/dL Creatinine (0.51-1.17) mg/dL Est Cr Clr Drug Dosing mL/min Estimated GFR (MDRD) mL/min Glucose (74-106) mg/dL POC Glucose 370 H* 403 H* 410 H* (65-110) mg/dl Uric Acid (2.6-7.2) mg/dL Calcium (8.5-10.1) mg/dL Magnesium (1.8-2.4) mg/dL Total Bilirubin (0.2-1.0) mg/dL AST (15-37) U/L ALT (12-78) U/L Alkaline Phosphatase (46-116) IU/L C-Reactive Protein (<=0.9) mg/dL Total Protein (6.4-8.2) g/dL Albumin (3.4-5.0) g/dL 09/05/18 09/05/18 Range/Units 16:45 19:29 WBC (4.0-10.2) K/uL RBC (4.33-5.41) M/uL Hgb (13.1-16.8) g/dL Hct (39.0-49.0) % MCV (84.0-98.0) fL MCH (28.2-33.3) pg MCHC (31.7-36.0) g/dL RDW (11.2-14.1) % Plt Count (150-350) K/uL Neut % (Auto) (45.0-80.0) % Lymph % (Auto) (10.0-50.0) % Lucas % (Auto) (2.0-14.0) % Eos % (Auto) (0.0-5.0) % Baso % (Auto) (0.0-2.0) % Neut # (Auto) (1.40-7.00) K/uL Lymph # (Auto) (0.50-3.50) K/uL Lucas # (Auto) (0.00-1.00) K/uL Eos # (Auto) (0.00-0.50) K/uL Baso # (Auto) (0.00-0.20) K/uL ESR (0-20) mm/hr Sodium (136-145) mmol/L Potassium (3.5-5.1) mmol/L Chloride (98-107) mmol/L Carbon Dioxide (21.0-32.0) mmol/L BUN (7-18) mg/dL Creatinine (0.51-1.17) mg/dL Est Cr Clr Drug Dosing mL/min Estimated GFR (MDRD) mL/min Glucose (74-106) mg/dL POC Glucose 358 H* 311 H* (65-110) mg/dl Uric Acid (2.6-7.2) mg/dL Calcium (8.5-10.1) mg/dL Magnesium (1.8-2.4) mg/dL Total Bilirubin (0.2-1.0) mg/dL AST (15-37) U/L ALT (12-78) U/L Alkaline Phosphatase (46-116) IU/L C-Reactive Protein (<=0.9) mg/dL Total Protein (6.4-8.2) g/dL Albumin (3.4-5.0) g/dL Murali Results Last 24 Hours: Microbiology 09/03/18 13:04 Aerobic Blood Culture - Preliminary Blood - Venous - Lab Draw NO GROWTH AFTER 2 DAYS Anaerobic Blood Culture - Preliminary NO GROWTH AFTER 2 DAYS 09/03/18 12:50 Aerobic Blood Culture - Preliminary Blood - Venous NO GROWTH AFTER 2 DAYS Anaerobic Blood Culture - Preliminary NO GROWTH AFTER 2 DAYS 09/03/18 12:45 Urine Culture - Final Urine, Voided Enterococcus Faecalis Med Orders - Current: Current Medications Acetaminophen (Tylenol) 650 mg PO Q4H PRN PRN Reason: Pain (Mild 1-3)/fever Albuterol/Ipratropium (Duoneb 3.0-0.5 Mg/3 Ml) 3 ml NEB Q4H PRN PRN Reason: Dyspnea Albuterol/Ipratropium (Duoneb 3.0-0.5 Mg/3 Ml) 3 ml NEB QID [facility] Last Admin: 09/05/18 19:42 Dose: 3 ml Allopurinol (Zyloprim) 300 mg PO DAILY [facility] Last Admin: 09/05/18 08:40 Dose: 300 mg Arformoterol Tartrate (Brovana) 15 mcg INH Q12HR [facility] Last Admin: 09/05/18 19:42 Dose: 15 mcg Artificial Tears (Liquitears 1.4% Ophth Soln) 0 ml EYEBOTH TID@0800,1200,2000 [facility] Last Admin: 09/05/18 19:55 Dose: 1 drop Carvedilol (Coreg) 9.375 mg PO BID [facility] Last Admin: 09/05/18 17:05 Dose: 9.375 mg Cholecalciferol (Vitamin D3) 1,000 units PO DAILY [facility] Last Admin: 09/05/18 08:26 Dose: 1,000 units Docusate Sodium (Colace) 100 mg PO BID [facility] Last Admin: 09/05/18 17:07 Dose: 100 mg Enoxaparin Sodium (Lovenox) 40 mg SUBCUT DAILY [facility] Last Admin: 09/05/18 08:33 Dose: 40 mg Furosemide (Lasix) 40 mg PO DAILY [facility] Last Admin: 09/05/18 08:29 Dose: 40 mg Gabapentin (Neurontin) 300 mg PO TID [facility] Last Admin: 09/05/18 17:06 Dose: 300 mg Metronidazole 500 mg/ Premix 100 mls @ 100 mls/hr IV Q8H [facility] Last Admin: 09/05/18 19:42 Dose: 100 mls/hr Vancomycin HCl 1.5 gm/ Sodium (Chloride) 250 mls @ 130 mls/hr IV Q24H [facility] Last Admin: 09/05/18 16:43 Dose: 130 mls/hr Ibuprofen (Motrin) 400 mg PO Q6H PRN PRN Reason: Pain (mild 1-3) Insulin Glargine (Lantus) 20 unit SUBCUT BEDTIME [facility] Last Admin: 09/05/18 19:53 Dose: 20 units Insulin Human Lispro (Humalog) 8 unit SUBCUT TID@0800,1200,1800 [facility] Last Admin: 09/05/18 17:04 Dose: 8 unit Insulin Human NPH (Humulin N) 40 unit SQ Q12HR [facility] Last Admin: 09/05/18 19:51 Dose: 40 unit Isosorbide Mononitrate (Imdur) 60 mg PO DAILY [facility] Last Admin: 09/05/18 08:29 Dose: 60 mg Magnesium Oxide (Magnesium Oxide) 400 mg PO BID [facility] Last Admin: 09/05/18 17:06 Dose: 400 mg Methylprednisolone Sodium Succinate (Solu-Medrol) 40 mg IVPUSH Q12HR [facility] Last Admin: 09/05/18 19:44 Dose: 40 mg Nitrofurantoin Macrocrystals (Macrobid) 100 mg PO DAILY@1800 [facility] Last Admin: 09/05/18 17:07 Dose: 100 mg Omeprazole (Omeprazole) 20 mg PO BID [facility] Last Admin: 09/05/18 17:07 Dose: 20 mg Sodium Chloride (Saline Flush) 10 ml FLUSH ASDIRECTED PRN PRN Reason: Keep Vein Open Last Admin: 09/05/18 03:39 Dose: 10 ml Sodium Chloride (Saline Flush) 10 ml FLUSH Q12HR [facility] Last Admin: 09/05/18 19:53 Dose: 10 ml Tamsulosin HCl (Flomax) 0.4 mg PO DAILY [facility] Last Admin: 09/05/18 08:27 Dose: 0.4 mg Vancomycin HCl (Pharmacy To Dose - Vancomycin) 1 dose .XX ASDIRECTED [facility] Discontinued Medications Arformoterol Tartrate (Brovana) 15 mcg INH BID [facility] Last Admin: 09/04/18 07:47 Dose: 15 mcg Carvedilol (Coreg) 9.375 mg PO BIDMEALS [facility] Last Admin: 09/04/18 07:48 Dose: 9.375 mg Levofloxacin/Dextrose 500 mg/ (Premix) 100 mls @ 100 mls/hr IV Q24H [facility] Last Admin: 09/03/18 14:47 Dose: 100 mls/hr Piperacillin Sod/Tazobactam (Sod 3.375 gm/ Sodium Chloride) 100 mls @ 200 mls/ hr IV Q6H [facility] Last Admin: 09/03/18 16:35 Dose: Not Given Piperacillin Sod/Tazobactam (Sod 3.375 gm/ Sodium Chloride) 100 mls @ 200 mls/ hr IV Q6H [facility] Last Admin: 09/05/18 08:41 Dose: 200 mls/hr Insulin Human Lispro (Humalog) 6 unit SUBCUT NOW ONE Stop: 09/04/18 11:32 Last Admin: 09/04/18 12:21 Dose: 6 units Insulin Human Lispro (Humalog) 15 unit SUBCUT ONETIME ONE Stop: 09/05/18 21:09 Last Admin: 09/04/18 22:45 Dose: 15 units Insulin Human Lispro (Humalog) 15 unit SUBCUT ONETIME ONE Stop: 09/05/18 14:16 Last Admin: 09/05/18 14:29 Dose: 15 unit Insulin Human NPH (Humulin N) 30 unit SQ ONETIME ONE Stop: 09/04/18 12:01 Last Admin: 09/04/18 12:23 Dose: 30 unit Insulin Human NPH (Humulin N) 30 unit SQ Q12HR [facility] Last Admin: 09/05/18 08:32 Dose: 30 unit Methylprednisolone Sodium Succinate (Solu-Medrol) 125 mg IVPUSH Q6H [facility] Last Admin: 09/04/18 07:53 Dose: 125 mg Methylprednisolone Sodium Succinate (Solu-Medrol) 80 mg IVPUSH Q12HR [facility] Last Admin: 09/05/18 08:24 Dose: 80 mg - Exam Quality Assessment: Supplemental Oxygen, DVT Prophylaxis General: Alert, Oriented, Cooperative HEENT: Mucous Membr. Moist/[place] Neck: Trachea Midline, No JVD Lungs: Decreased Breath Sounds Cardiovascular: Regular Rate, Regular Rhythm, No Murmurs GI/Abdominal Exam: Soft, Non-Tender, No Distention (Male) Exam: Deferred Back Exam: Normal Inspection Extremities: Non-Tender, Pedal Edema Skin: Warm, Dry, Intact Neurological: No New Focal Deficit Psy/Mental Status: Alert, Normal Affect, Normal Mood - Problem List & Annotations (1) Comfort measures only status SNOMED Code(s): 08639462042714 Code(s): Z51.5 - ENCOUNTER FOR PALLIATIVE CARE Status: Acute Priority: Medium Current Visit: No (2) DNI (do not intubate) SNOMED Code(s): 856199877 Code(s): Z78.9 - OTHER SPECIFIED HEALTH STATUS Status: Acute Current Visit: No (3) DNR (do not resuscitate) Status: Acute Current Visit: No (4) Pneumonia SNOMED Code(s): 574453061 Code(s): J18.9 - PNEUMONIA, UNSPECIFIED ORGANISM Status: Acute Priority: High Current Visit: No Qualifiers: Pneumonia type: aspiration pneumonia Aspiration pneumonia type: unspecified Laterality: unspecified laterality (5) UTI, Urinary tract infectious disease SNOMED Code(s): 98666309 Code(s): N39.0 - URINARY TRACT INFECTION, SITE NOT SPECIFIED Status: Acute Current Visit: No (6) Anemia SNOMED Code(s): 219743309 Code(s): D64.9 - ANEMIA, UNSPECIFIED Status: Chronic Priority: Medium Current Visit: No Qualifiers: Anemia type: iron deficiency Annotation/Comment:: Both iron and vitamin B-12 deficiency verified during recent acute care hospitalization. Continue supplementation as per discharge orders with close follow-up by his regular provider. Note hemoglobin improved from 9.1 during recent acute care. Additional history of renal insufficiency and chronic diseases as contributing factors to his anemia. (7) COPD (chronic obstructive pulmonary disease) SNOMED Code(s): 93393987 Code(s): J44.9 - CHRONIC OBSTRUCTIVE PULMONARY DISEASE, UNSPECIFIED Status : Chronic Priority: High Current Visit: No Qualifiers: COPD type: COPD with acute lower respiratory infection Qualified Code(s): J44.0 - Chronic obstructive pulmonary disease with acute lower respiratory infection Annotation/Comment:: Patient will undergo IV antibiotics bronchodilators and steroids (8) Chronic GERD SNOMED Code(s): 998570833, 731100046 Code(s): K21.9 - GASTRO-ESOPHAGEAL REFLUX DISEASE WITHOUT ESOPHAGITIS Status: Chronic Priority: Medium Current Visit: No (9) Chronic diastolic (congestive) heart failure SNOMED Code(s): 102592284, 876445575 Code(s): I50.32 - CHRONIC DIASTOLIC (CONGESTIVE) HEART FAILURE Status: Chronic Priority: Medium Current Visit: No (10) Chronic kidney disease (CKD) SNOMED Code(s): 940881828 Code(s): N18.9 - CHRONIC KIDNEY DISEASE, UNSPECIFIED Status: Chronic Priority: High Current Visit: No Qualifiers: Chronic kidney disease stage: unspecified stage Qualified Code(s): N18.9 - Chronic kidney disease, unspecified Annotation/Comment:: History of diabetic nephropathy. Continue to observe closely. (11) Chronic respiratory failure with hypoxia SNOMED Code(s): 237385966 Code(s): J96.11 - CHRONIC RESPIRATORY FAILURE WITH HYPOXIA Status: Chronic Priority: High Current Visit: No (12) Coronary artery disease SNOMED Code(s): 00147319 Code(s): I25.10 - ATHSCL HEART DISEASE OF [place] CORONARY ARTERY W/O ANG PCTRS Status: Chronic Priority: Medium Current Visit: No Qualifiers: Coronary Disease-Associated Artery/Lesion type: [place] artery [place] vs. transplanted heart: [place] heart Associated angina: without angina Qualified Code(s): I25.10 - Atherosclerotic heart disease of [place] coronary artery without angina pectoris Annotation/Comment:: As above (13) Diabetes mellitus SNOMED Code(s): 49776483 Code(s): E11.9 - TYPE 2 DIABETES MELLITUS WITHOUT COMPLICATIONS Status: Chronic Priority: Medium Current Visit: No (14) Dyslipidemia SNOMED Code(s): 748133862 Code(s): E78.5 - HYPERLIPIDEMIA, UNSPECIFIED Status: Chronic Priority: Medium Current Visit: No Annotation/Comment:: Currently not under therapy. Weight loss in moderation advisable as above. Continue to observe closely by his regular provider. (15) Exertional dyspnea SNOMED Code(s): 15069392 Code(s): R06.09 - OTHER FORMS OF DYSPNEA Status: Chronic Priority: Medium Current Visit: No (16) Gout SNOMED Code(s): 70106815 Code(s): M10.9 - GOUT, UNSPECIFIED Status: Chronic Priority: Low Current Visit: No Qualifiers: Gout site: unspecified site Gout etiology: due to renal impairment Chronicity: chronic Presence of tophus: without tophus Qualified Code(s): M1A.30X0 - Chronic gout due to renal impairment, unspecified site, without tophus (tophi) (17) HTN, Benign hypertension SNOMED Code(s): 02998054 Code(s): I10 - ESSENTIAL (PRIMARY) HYPERTENSION Status: Chronic Priority : Medium Current Visit: No Annotation/Comment:: Continue on current blood pressure medications (18) Hypomagnesemia SNOMED Code(s): 224708351 Code(s): E83.42 - HYPOMAGNESEMIA Status: Chronic Priority: Medium Current Visit: No Onset Date: 06/29/16 Annotation/Comment:: Continue Magnesium oxide with caution secondary to his renal function (19) Neuropathy SNOMED Code(s): 275601890 Code(s): G62.9 - POLYNEUROPATHY, UNSPECIFIED Status: Chronic Priority: Medium Current Visit: No (20) Obesity (BMI 30-39.9) SNOMED Code(s): 617378917, 142063308 Code(s): E66.9 - OBESITY, UNSPECIFIED Status: Chronic Priority: Medium Current Visit: No Annotation/Comment:: Weight loss in moderation advisable. (21) Obstructive sleep apnea on CPAP SNOMED Code(s): 73052258 Code(s): G47.33 - OBSTRUCTIVE SLEEP APNEA (ADULT) (PEDIATRIC); Z99.89 - DEPENDENCE ON OTHER ENABLING MACHINES AND DEVICES Status: Chronic Priority: Low Current Visit: No Annotation/Comment:: using CPAP machinge at night, will continue (22) Osteoarthritis SNOMED Code(s): 170048962 Code(s): M19.90 - UNSPECIFIED OSTEOARTHRITIS, UNSPECIFIED SITE Status: Chronic Priority: Medium Current Visit: No Annotation/Comment:: Osteoarthritis stable during this hospitalization with no gout attacks despite elevated uric acid level with known previous history of hyperuricemia. (23) Oxygen dependent SNOMED Code(s): 691012037526 Code(s): Z99.81 - DEPENDENCE ON SUPPLEMENTAL OXYGEN Status: Chronic Priority: High Current Visit: No (24) Physical deconditioning SNOMED Code(s): 13218265295712 Code(s): R53.81 - OTHER MALAISE Status: Chronic Priority: High Current Visit: No (25) Weakness generalized SNOMED Code(s): 00498829 Code(s): R53.1 - WEAKNESS Status: Chronic Priority: High Current Visit : No - Problem List Review Problem List Initiated/Reviewed/Updated: Yes - My Orders Last 24 Hours: My Active Orders 09/05/18 08:00 Consult to Case Management/Key Bed Installer [CONS] Routine Consult to Occupational Therapy [OT Evaluation and Treatment] [CONS] Routine Consult to Physical Therapy [PT Evaluation and Treatment] [CONS] Routine 09/05/18 13:59 Communication Order [RC] STAT 09/05/18 14:00 Pharmacy to Dose - Vancomycin 1 dose .XX ASDIRECTED 09/05/18 16:00 Vancomycin 1.5 gm Sodium Chloride 0.9% [Normal Saline] 250 ml IV Q24H 09/05/18 18:00 Nitrofurantoin Lucas/Macrocryst [Macrobid] 100 mg PO DAILY@1800 09/05/18 20:00 Insulin NPH Human Isophane [HumuLIN N] 40 unit SQ Q12HR methylPREDNISolone Sod Succ [Solu-MEDROL] 40 mg IVPUSH Q12HR 09/06/18 05:11 CBC WITH AUTO DIFF [HEME] DAILY CMP [COMPREHENSIVE METABOLIC PN,CMP] [CHEM] DAILY CRP [C-REACTIVE PROTEIN] [CHEM] DAILY 09/06/18 08:00 Abdomen Comp [US] Routine 09/07/18 05:11 CBC WITH AUTO DIFF [HEME] DAILY CMP [COMPREHENSIVE METABOLIC PN,CMP] [CHEM] DAILY CRP [C-REACTIVE PROTEIN] [CHEM] DAILY 09/07/18 15:30 VANCOMYCIN TROUGH [CHEM] Routine - Plan Plan:: 09/04/18 Dusty Seaman MD Feels okay. Weak. Continue IV antibiotics. Awaiting C&S results. 09/05/18 Dusty Seaman MD He says he feels okay but does admit his legs are not strong enough to hold up his body weight. He reminds me that he weights right around ~300+ pounds If he falls down at home, his is unable to assist him back up. He will work with PT-OT. Urine C&S +enterococcus faelcalis. Antibiotics changed.Continue IV antbiotics, PT, OT,and care coordination.
[2018-09-06] MEDS: metroNIDAZOLE/Normal Saline 500 MG in Premix Bag 1 BAG IV SCH ×3 (03:40→20:02)
[2018-09-06] MEDS: Sodium Chloride 0.9% 10 ML Syringe FLUSH PRN ×4 (03:40→18:25)
[2018-09-06 07:16] LABS: CHLORIDE,CL 99 mmol/L (98-107); SODIUM,NA 137 mmol/L (136-145)
[2018-09-06] MEDS: Enoxaparin 40 MG/0.4 ML Syringe SUBCUT SCH (07:33)
[2018-09-06] MEDS: Albuterol/Ipratropium 3.0-0.5 MG/3 ML Neb Soln NEB SCH ×4 (07:33→20:01)
[2018-09-06] MEDS: Arformoterol 15 MCG/2 ML Neb Soln INH SCH ×2 (07:33→19:49)
[2018-09-06] MEDS: Insulin Isophane NPH, Human 100 Units/ML 3 ML Vial SQ SCH ×2 (07:34→20:10)
[2018-09-06] MEDS: Furosemide 20 MG Tab PO SCH (09:25)
[2018-09-06] MEDS: Carvedilol 3.125 MG Tab PO SCH ×2 (09:25→17:08)
[2018-09-06] MEDS: Gabapentin 300 MG Cap PO SCH ×3 (09:25→17:07)
[2018-09-06] MEDS: Cholecalciferol (Vitamin D3) 1,000 Unit Tab PO SCH (09:26)
[2018-09-06] MEDS: Tamsulosin 0.4 MG Cap.ER PO SCH (09:26)
[2018-09-06] MEDS: Allopurinol 100 MG Tab PO SCH (09:26)
[2018-09-06] MEDS: Omeprazole 20 MG Cap.CR PO SCH ×2 (09:26→17:07)
[2018-09-06] MEDS: Docusate Sodium 100 MG Cap PO SCH ×2 (09:26→17:14)
[2018-09-06] MEDS: Magnesium Oxide 400 MG Tab PO SCH ×2 (09:26→17:08)
[2018-09-06] MEDS: Isosorbide Mononitrate 60 MG Tab.ER PO SCH (09:26)
[2018-09-06] MEDS: methylPREDNISolone Sodium Succinate 125 MG/2 ML SDV IVPUSH SCH (09:28)
[2018-09-06] MEDS: Sodium Chloride 0.9% 10 ML Syringe FLUSH SCH ×2 (09:29→20:02)
[2018-09-06] MEDS: Polyvinyl Alcohol 1.4% Ophth Soln 15 ML Bottle EYEBOTH SCH ×3 (09:33→20:14)
[2018-09-06] MEDS: Insulin Lispro 100 Units/ML 3 ML Vial SUBCUT SCH ×3 (09:33→17:12)
--- NOTE | 2018-09-06 16:18 | PCM.PN ---
- General Info Date of Service: 09/06/18 Functional Status: Reports: Pain Controlled, Tolerating Diet - Review of Systems General: Reports: Weakness HEENT: Reports: No Symptoms Pulmonary: Reports: No Symptoms Cardiovascular: Reports: No Symptoms Gastrointestinal: Reports: No Symptoms Genitourinary: Reports: No Symptoms Musculoskeletal: Reports: No Symptoms Skin: Reports: Bruising Neurological: Reports: Weakness Psychiatric: Reports: No Symptoms - Patient Data Vitals - Most Recent: Last Vital Signs Temp 98.8 F 09/06/18 15:58 Pulse 81 09/06/18 12:00 Resp 15 09/06/18 15:58 BP 124/69 09/06/18 15:58 Pulse Ox 100 09/06/18 15:58 Weight - Most Recent: 288 lb 4 oz I&O - Last 24 Hours: Intake & Output 09/06/18 09/06/18 09/06/18 06:59 14:59 22:59 Intake Total 100 1080 Output Total 300 Balance -200 1080 Lab Results Last 24 Hours: Laboratory Results - last 24 hr 09/05/18 09/05/18 09/06/18 Range/Units 16:45 19:29 06:45 WBC 15.1 H (4.0-10.2) K/uL RBC 2.74 L (4.33-5.41) M/uL Hgb 10.1 L (13.1-16.8) g/dL Hct 30.1 L (39.0-49.0) % MCV 109.9 H (84.0-98.0) fL MCH 36.9 H (28.2-33.3) pg MCHC 33.6 (31.7-36.0) g/dL RDW 15.5 H (11.2-14.1) % Plt Count 179 (150-350) K/uL Neut % (Auto) 79.7 (45.0-80.0) % Lymph % (Auto) 10.9 (10.0-50.0) % Walker % (Auto) 8.9 (2.0-14.0) % Eos % (Auto) 0.3 (0.0-5.0) % Baso % (Auto) 0.2 (0.0-2.0) % Neut # (Auto) 12.00 H (1.40-7.00) K/uL Lymph # (Auto) 1.65 (0.50-3.50) K/uL Walker # (Auto) 1.34 H (0.00-1.00) K/uL Eos # (Auto) 0.05 (0.00-0.50) K/uL Baso # (Auto) 0.03 (0.00-0.20) K/uL Sodium (136-145) mmol/L Potassium (3.5-5.1) mmol/L Chloride (98-107) mmol/L Carbon Dioxide (21.0-32.0) mmol/L BUN (7-18) mg/dL Creatinine (0.51-1.17) mg/dL Est Cr Clr Drug Dosing mL/min Estimated GFR (MDRD) mL/min Glucose (74-106) mg/dL POC Glucose 358 H* 311 H* (65-110) mg/dl Calcium (8.5-10.1) mg/dL Total Bilirubin (0.2-1.0) mg/dL AST (15-37) U/L ALT (12-78) U/L Alkaline Phosphatase (46-116) IU/L C-Reactive Protein (<=0.9) mg/dL Total Protein (6.4-8.2) g/dL Albumin (3.4-5.0) g/dL 09/06/18 09/06/18 09/06/18 Range/Units 06:45 07:25 11:20 WBC (4.0-10.2) K/uL RBC (4.33-5.41) M/uL Hgb (13.1-16.8) g/dL Hct (39.0-49.0) % MCV (84.0-98.0) fL MCH (28.2-33.3) pg MCHC (31.7-36.0) g/dL RDW (11.2-14.1) % Plt Count (150-350) K/uL Neut % (Auto) (45.0-80.0) % Lymph % (Auto) (10.0-50.0) % Walker % (Auto) (2.0-14.0) % Eos % (Auto) (0.0-5.0) % Baso % (Auto) (0.0-2.0) % Neut # (Auto) (1.40-7.00) K/uL Lymph # (Auto) (0.50-3.50) K/uL Walker # (Auto) (0.00-1.00) K/uL Eos # (Auto) (0.00-0.50) K/uL Baso # (Auto) (0.00-0.20) K/uL Sodium 137 (136-145) mmol/L Potassium 3.7 (3.5-5.1) mmol/L Chloride 99 (98-107) mmol/L Carbon Dioxide 30.4 (21.0-32.0) mmol/L BUN 36 H (7-18) mg/dL Creatinine 1.08 (0.51-1.17) mg/dL Est Cr Clr Drug Dosing 56.47 mL/min Estimated GFR (MDRD) > 60 mL/min Glucose 270 H (74-106) mg/dL POC Glucose 258 H* 332 H* (65-110) mg/dl Calcium 8.0 L (8.5-10.1) mg/dL Total Bilirubin 0.2 (0.2-1.0) mg/dL AST 17 (15-37) U/L ALT 33 (12-78) U/L Alkaline Phosphatase 64 (46-116) IU/L C-Reactive Protein 7.3 H (<=0.9) mg/dL Total Protein 5.7 L (6.4-8.2) g/dL Albumin 2.3 L (3.4-5.0) g/dL Murali Results Last 24 Hours: Microbiology 09/03/18 13:04 Aerobic Blood Culture - Preliminary Blood - Venous - Lab Draw NO GROWTH AFTER 3 DAYS Anaerobic Blood Culture - Preliminary NO GROWTH AFTER 3 DAYS 09/03/18 12:50 Aerobic Blood Culture - Preliminary Blood - Venous NO GROWTH AFTER 3 DAYS Anaerobic Blood Culture - Preliminary NO GROWTH AFTER 3 DAYS Med Orders - Current: Current Medications Acetaminophen (Tylenol) 650 mg PO Q4H PRN PRN Reason: Pain (Mild 1-3)/fever Albuterol/Ipratropium (Duoneb 3.0-0.5 Mg/3 Ml) 3 ml NEB Q4H PRN PRN Reason: Dyspnea Albuterol/Ipratropium (Duoneb 3.0-0.5 Mg/3 Ml) 3 ml NEB QID SALOMÓN Last Admin: 09/06/18 15:42 Dose: 3 ml Allopurinol (Zyloprim) 300 mg PO DAILY [facility] Last Admin: 09/06/18 09:26 Dose: 300 mg Arformoterol Tartrate (Brovana) 15 mcg INH Q12HR [facility] Last Admin: 09/06/18 07:33 Dose: 15 mcg Artificial Tears (Liquitears 1.4% Ophth Soln) 0 ml EYEBOTH TID@0800,1200,2000 [facility] Last Admin: 09/06/18 11:46 Dose: 1 drop Carvedilol (Coreg) 9.375 mg PO BID [facility] Last Admin: 09/06/18 09:25 Dose: 9.375 mg Cholecalciferol (Vitamin D3) 1,000 units PO DAILY [facility] Last Admin: 09/06/18 09:26 Dose: 1,000 units Docusate Sodium (Colace) 100 mg PO BID [facility] Last Admin: 09/06/18 09:26 Dose: 100 mg Enoxaparin Sodium (Lovenox) 40 mg SUBCUT DAILY [facility] Last Admin: 09/06/18 07:33 Dose: 40 mg Furosemide (Lasix) 40 mg PO DAILY [facility] Last Admin: 09/06/18 09:25 Dose: 40 mg Gabapentin (Neurontin) 300 mg PO TID [facility] Last Admin: 09/06/18 11:46 Dose: 300 mg Metronidazole 500 mg/ Premix 100 mls @ 100 mls/hr IV Q8H [facility] Last Admin: 09/06/18 11:46 Dose: 100 mls/hr Vancomycin HCl 1.5 gm/ Sodium (Chloride) 250 mls @ 130 mls/hr IV Q24H [facility] Last Admin: 09/06/18 15:42 Dose: 130 mls/hr Ibuprofen (Motrin) 400 mg PO Q6H PRN PRN Reason: Pain (mild 1-3) Insulin Glargine (Lantus) 20 unit SUBCUT BEDTIME [facility] Last Admin: 09/05/18 19:53 Dose: 20 units Insulin Human Lispro (Humalog) 8 unit SUBCUT TID@0800,1200,1800 [facility] Last Admin: 09/06/18 11:47 Dose: 8 unit Insulin Human NPH (Humulin N) 40 unit SQ Q12HR [facility] Last Admin: 09/06/18 07:34 Dose: 40 unit Isosorbide Mononitrate (Imdur) 60 mg PO DAILY [facility] Last Admin: 09/06/18 09:26 Dose: 60 mg Magnesium Oxide (Magnesium Oxide) 400 mg PO BID [facility] Last Admin: 09/06/18 09:26 Dose: 400 mg Methylprednisolone Sodium Succinate (Solu-Medrol) 40 mg IVPUSH Q12HR [facility] Nitrofurantoin Macrocrystals (Macrobid) 100 mg PO DAILY@1800 [facility] Last Admin: 09/05/18 17:07 Dose: 100 mg Omeprazole (Omeprazole) 20 mg PO BID [facility] Last Admin: 09/06/18 09:26 Dose: 20 mg Sodium Chloride (Saline Flush) 10 ml FLUSH ASDIRECTED PRN PRN Reason: Keep Vein Open Last Admin: 09/06/18 15:45 Dose: 10 ml Sodium Chloride (Saline Flush) 10 ml FLUSH Q12HR [facility] Last Admin: 09/06/18 09:29 Dose: 10 ml Tamsulosin HCl (Flomax) 0.4 mg PO DAILY [facility] Last Admin: 09/06/18 09:26 Dose: 0.4 mg Vancomycin HCl (Pharmacy To Dose - Vancomycin) 1 dose .XX ASDIRECTED [facility] Discontinued Medications Arformoterol Tartrate (Brovana) 15 mcg INH BID [facility] Last Admin: 09/04/18 07:47 Dose: 15 mcg Carvedilol (Coreg) 9.375 mg PO BIDMEALS [facility] Last Admin: 09/04/18 07:48 Dose: 9.375 mg Levofloxacin/Dextrose 500 mg/ (Premix) 100 mls @ 100 mls/hr IV Q24H [facility] Last Admin: 09/03/18 14:47 Dose: 100 mls/hr Piperacillin Sod/Tazobactam (Sod 3.375 gm/ Sodium Chloride) 100 mls @ 200 mls/ hr IV Q6H [facility] Last Admin: 09/03/18 16:35 Dose: Not Given Piperacillin Sod/Tazobactam (Sod 3.375 gm/ Sodium Chloride) 100 mls @ 200 mls/ hr IV Q6H [facility] Last Admin: 09/05/18 08:41 Dose: 200 mls/hr Insulin Human Lispro (Humalog) 6 unit SUBCUT NOW ONE Stop: 09/04/18 11:32 Last Admin: 09/04/18 12:21 Dose: 6 units Insulin Human Lispro (Humalog) 15 unit SUBCUT ONETIME ONE Stop: 09/05/18 21:09 Last Admin: 09/04/18 22:45 Dose: 15 units Insulin Human Lispro (Humalog) 15 unit SUBCUT ONETIME ONE Stop: 09/05/18 14:16 Last Admin: 09/05/18 14:29 Dose: 15 unit Insulin Human NPH (Humulin N) 30 unit SQ ONETIME ONE Stop: 09/04/18 12:01 Last Admin: 09/04/18 12:23 Dose: 30 unit Insulin Human NPH (Humulin N) 30 unit SQ Q12HR [facility] Last Admin: 09/05/18 08:32 Dose: 30 unit Methylprednisolone Sodium Succinate (Solu-Medrol) 125 mg IVPUSH Q6H [facility] Last Admin: 09/04/18 07:53 Dose: 125 mg Methylprednisolone Sodium Succinate (Solu-Medrol) 80 mg IVPUSH Q12HR [facility] Last Admin: 09/05/18 08:24 Dose: 80 mg Methylprednisolone Sodium Succinate (Solu-Medrol) 40 mg IVPUSH Q12HR [facility] Last Admin: 09/06/18 09:28 Dose: 40 mg - Exam Quality Assessment: DVT Prophylaxis General: Alert, No Acute Distress HEENT: Mucous Membr. Moist/[place] Neck: Trachea Midline, No JVD Lungs: Normal Respiratory Effort, Decreased Breath Sounds Cardiovascular: Regular Rate, Regular Rhythm GI/Abdominal Exam: Soft, Non-Tender, No Distention (Male) Exam: Deferred Back Exam: Normal Inspection Extremities: Non-Tender, Pedal Edema Skin: Warm, Dry, Ecchymosis (puffiness) Neurological: No New Focal Deficit Psy/Mental Status: Alert, Other (says he is going home tomorrow even if he can' t walk) - Problem List & Annotations (1) Comfort measures only status SNOMED Code(s): 09059903577205 Code(s): Z51.5 - ENCOUNTER FOR PALLIATIVE CARE Status: Acute Priority: Medium Current Visit: No (2) DNI (do not intubate) SNOMED Code(s): 265422812 Code(s): Z78.9 - OTHER SPECIFIED HEALTH STATUS Status: Acute Current Visit: No (3) DNR (do not resuscitate) Status: Acute Current Visit: No (4) Pneumonia SNOMED Code(s): 904257984 Code(s): J18.9 - PNEUMONIA, UNSPECIFIED ORGANISM Status: Acute Priority: High Current Visit: No Qualifiers: Pneumonia type: aspiration pneumonia Aspiration pneumonia type: unspecified Laterality: unspecified laterality (5) UTI, Urinary tract infectious disease SNOMED Code(s): 55279930 Code(s): N39.0 - URINARY TRACT INFECTION, SITE NOT SPECIFIED Status: Acute Current Visit: No (6) Anemia SNOMED Code(s): 885695247 Code(s): D64.9 - ANEMIA, UNSPECIFIED Status: Chronic Priority: Medium Current Visit: No Qualifiers: Anemia type: iron deficiency Annotation/Comment:: Both iron and vitamin B-12 deficiency verified during recent acute care hospitalization. Continue supplementation as per discharge orders with close follow-up by his regular provider. Note hemoglobin improved from 9.1 during recent acute care. Additional history of renal insufficiency and chronic diseases as contributing factors to his anemia. (7) COPD (chronic obstructive pulmonary disease) SNOMED Code(s): 33389580 Code(s): J44.9 - CHRONIC OBSTRUCTIVE PULMONARY DISEASE, UNSPECIFIED Status : Chronic Priority: High Current Visit: No Qualifiers: COPD type: COPD with acute lower respiratory infection Qualified Code(s): J44.0 - Chronic obstructive pulmonary disease with acute lower respiratory infection Annotation/Comment:: Patient will undergo IV antibiotics bronchodilators and steroids (8) Chronic GERD SNOMED Code(s): 283709660, 893597490 Code(s): K21.9 - GASTRO-ESOPHAGEAL REFLUX DISEASE WITHOUT ESOPHAGITIS Status: Chronic Priority: Medium Current Visit: No (9) Chronic diastolic (congestive) heart failure SNOMED Code(s): 365332144, 307594866 Code(s): I50.32 - CHRONIC DIASTOLIC (CONGESTIVE) HEART FAILURE Status: Chronic Priority: Medium Current Visit: No (10) Chronic kidney disease (CKD) SNOMED Code(s): 453692112 Code(s): N18.9 - CHRONIC KIDNEY DISEASE, UNSPECIFIED Status: Chronic Priority: High Current Visit: No Qualifiers: Chronic kidney disease stage: unspecified stage Qualified Code(s): N18.9 - Chronic kidney disease, unspecified Annotation/Comment:: History of diabetic nephropathy. Continue to observe closely. (11) Chronic respiratory failure with hypoxia SNOMED Code(s): 303719964 Code(s): J96.11 - CHRONIC RESPIRATORY FAILURE WITH HYPOXIA Status: Chronic Priority: High Current Visit: No (12) Coronary artery disease SNOMED Code(s): 02376897 Code(s): I25.10 - ATHSCL HEART DISEASE OF [place] CORONARY ARTERY W/O ANG PCTRS Status: Chronic Priority: Medium Current Visit: No Qualifiers: Coronary Disease-Associated Artery/Lesion type: [place] artery [place] vs. transplanted heart: [place] heart Associated angina: without angina Qualified Code(s): I25.10 - Atherosclerotic heart disease of [place] coronary artery without angina pectoris Annotation/Comment:: As above (13) Diabetes mellitus SNOMED Code(s): 27467398 Code(s): E11.9 - TYPE 2 DIABETES MELLITUS WITHOUT COMPLICATIONS Status: Chronic Priority: Medium Current Visit: No (14) Dyslipidemia SNOMED Code(s): 298344801 Code(s): E78.5 - HYPERLIPIDEMIA, UNSPECIFIED Status: Chronic Priority: Medium Current Visit: No Annotation/Comment:: Currently not under therapy. Weight loss in moderation advisable as above. Continue to observe closely by his regular provider. (15) Exertional dyspnea SNOMED Code(s): 25316678 Code(s): R06.09 - OTHER FORMS OF DYSPNEA Status: Chronic Priority: Medium Current Visit: No (16) Gout SNOMED Code(s): 46436429 Code(s): M10.9 - GOUT, UNSPECIFIED Status: Chronic Priority: Low Current Visit: No Qualifiers: Gout site: unspecified site Gout etiology: due to renal impairment Chronicity: chronic Presence of tophus: without tophus Qualified Code(s): M1A.30X0 - Chronic gout due to renal impairment, unspecified site, without tophus (tophi) (17) HTN, Benign hypertension SNOMED Code(s): 16017507 Code(s): I10 - ESSENTIAL (PRIMARY) HYPERTENSION Status: Chronic Priority : Medium Current Visit: No Annotation/Comment:: Continue on current blood pressure medications (18) Hypomagnesemia SNOMED Code(s): 306293195 Code(s): E83.42 - HYPOMAGNESEMIA Status: Chronic Priority: Medium Current Visit: No Onset Date: 06/29/16 Annotation/Comment:: Continue Magnesium oxide with caution secondary to his renal function (19) Neuropathy SNOMED Code(s): 758869797 Code(s): G62.9 - POLYNEUROPATHY, UNSPECIFIED Status: Chronic Priority: Medium Current Visit: No (20) Obesity (BMI 30-39.9) SNOMED Code(s): 804575595, 590745190 Code(s): E66.9 - OBESITY, UNSPECIFIED Status: Chronic Priority: Medium Current Visit: No Annotation/Comment:: Weight loss in moderation advisable. (21) Obstructive sleep apnea on CPAP SNOMED Code(s): 29230989 Code(s): G47.33 - OBSTRUCTIVE SLEEP APNEA (ADULT) (PEDIATRIC); Z99.89 - DEPENDENCE ON OTHER ENABLING MACHINES AND DEVICES Status: Chronic Priority: Low Current Visit: No Annotation/Comment:: using CPAP machinge at night, will continue (22) Osteoarthritis SNOMED Code(s): 061541894 Code(s): M19.90 - UNSPECIFIED OSTEOARTHRITIS, UNSPECIFIED SITE Status: Chronic Priority: Medium Current Visit: No Annotation/Comment:: Osteoarthritis stable during this hospitalization with no gout attacks despite elevated uric acid level with known previous history of hyperuricemia. (23) Oxygen dependent SNOMED Code(s): 636261573832 Code(s): Z99.81 - DEPENDENCE ON SUPPLEMENTAL OXYGEN Status: Chronic Priority: High Current Visit: No (24) Physical deconditioning SNOMED Code(s): 79324145913918 Code(s): R53.81 - OTHER [place] Status: Chronic Priority: High Current Visit: No (25) Weakness generalized SNOMED Code(s): 67785408 Code(s): R53.1 - WEAKNESS Status: Chronic Priority: High Current Visit : No (26) Enterococcus faecalis infection SNOMED Code(s): 115268531 Code(s): B95.2 - ENTEROCOCCUS THE CAUSE OF DISEASES CLASSIFIED ELSEWHERE Status: Acute Priority: High Current Visit: Yes - Problem List Review Problem List Initiated/Reviewed/Updated: Yes - My Orders Last 24 Hours: My Active Orders 09/05/18 16:00 Vancomycin 1.5 gm Sodium Chloride 0.9% [Normal Saline] 250 ml IV Q24H 09/05/18 18:00 Nitrofurantoin Walker/Macrocryst [Macrobid] 100 mg PO DAILY@1800 09/05/18 20:00 Insulin NPH Human [place] [HumuLIN N] 40 unit SQ Q12HR 09/06/18 08:00 Abdomen Comp [US] Routine 09/06/18 20:00 methylPREDNISolone Sod Succ [Solu-MEDROL] 40 mg IVPUSH Q12HR 09/07/18 05:11 CBC WITH AUTO DIFF [HEME] DAILY CMP [COMPREHENSIVE METABOLIC PN,CMP] [CHEM] DAILY CRP [C-REACTIVE PROTEIN] [CHEM] DAILY 09/07/18 15:30 SEDIMENTATION RATE AUTO [HEME] Routine VANCOMYCIN TROUGH [CHEM] Routine - Plan Plan:: 09/04/18 Dusty Seaman MD Feels okay. Weak. Continue IV antibiotics. Awaiting C&S results. 09/05/18 Dusty Seaman MD He says he feels okay but does admit his legs are not strong enough to hold up his body weight. He reminds me that he weighs right around ~300+ pounds If he falls down at home, his is unable to assist him back up. He will work with PT-OT. Urine C&S +enterococcus faelcalis. Antibiotics changed.Continue IV antbiotics, PT, OT,and care coordination. 09/06/18 Dusty Seaman MD No complaints. He is pivoting today but not walking. Continue with antibiotics and PT-OT. Discharge planning discussed.
[2018-09-06] MEDS: Nitrofurantoin Monohydrate/Macrocrystalline 100 MG Cap PO SCH (17:08)
[2018-09-06] MEDS: methylPREDNISolone Sodium Succinate 40 MG/1 ML SDV IVPUSH SCH (20:01)
[2018-09-06] MEDS: Insulin Glarg,Human.Rec.Analog 100 UNIT/ML ML SUBCUT SCH (20:11)
[2018-09-07] MEDS: metroNIDAZOLE/Normal Saline 500 MG in Premix Bag 1 BAG IV SCH ×3 (04:09→19:36)
[2018-09-07] MEDS: Sodium Chloride 0.9% 10 ML Syringe FLUSH PRN ×4 (04:09→17:27)
[2018-09-07 07:38] LABS: CHLORIDE,CL 99 mmol/L (98-107); SODIUM,NA 136 mmol/L (136-145)
[2018-09-07] MEDS: Furosemide 20 MG Tab PO SCH (07:39)
[2018-09-07] MEDS: Allopurinol 100 MG Tab PO SCH (07:40)
[2018-09-07] MEDS: Carvedilol 3.125 MG Tab PO SCH ×2 (07:40→17:26)
[2018-09-07] MEDS: Tamsulosin 0.4 MG Cap.ER PO SCH (07:41)
[2018-09-07] MEDS: Cholecalciferol (Vitamin D3) 1,000 Unit Tab PO SCH (07:41)
[2018-09-07] MEDS: Omeprazole 20 MG Cap.CR PO SCH ×2 (07:41→17:26)
[2018-09-07] MEDS: Gabapentin 300 MG Cap PO SCH ×3 (07:41→17:26)
[2018-09-07] MEDS: Docusate Sodium 100 MG Cap PO SCH ×2 (07:41→17:26)
[2018-09-07] MEDS: Magnesium Oxide 400 MG Tab PO SCH ×2 (07:41→17:26)
[2018-09-07] MEDS: Isosorbide Mononitrate 60 MG Tab.ER PO SCH (07:42)
[2018-09-07] MEDS: Albuterol/Ipratropium 3.0-0.5 MG/3 ML Neb Soln NEB SCH ×4 (07:42→19:35)
[2018-09-07] MEDS: Arformoterol 15 MCG/2 ML Neb Soln INH SCH ×2 (07:42→19:35)
[2018-09-07] MEDS: Polyvinyl Alcohol 1.4% Ophth Soln 15 ML Bottle EYEBOTH SCH ×3 (07:42→19:31)
[2018-09-07] MEDS: Insulin Lispro 100 Units/ML 3 ML Vial SUBCUT SCH ×3 (07:43→17:28)
[2018-09-07] MEDS: Insulin Isophane NPH, Human 100 Units/ML 3 ML Vial SQ SCH (07:44)
[2018-09-07] MEDS: Sodium Chloride 0.9% 10 ML Syringe FLUSH SCH ×2 (07:45→19:35)
[2018-09-07] MEDS: methylPREDNISolone Sodium Succinate 40 MG/1 ML SDV IVPUSH SCH (07:45)
--- NOTE | 2018-09-07 14:25 | PCM.PN ---
- General Info Date of Service: 09/07/18 Functional Status: Reports: Pain Controlled, Tolerating Diet - Review of Systems General: Reports: Weakness HEENT: Reports: No Symptoms Pulmonary: Reports: No Symptoms Cardiovascular: Reports: No Symptoms Gastrointestinal: Reports: No Symptoms Genitourinary: Reports: No Symptoms Musculoskeletal: Reports: No Symptoms Skin: Reports: No Symptoms Neurological: Reports: Weakness Psychiatric: Reports: No Symptoms - Patient Data Vitals - Most Recent: Last Vital Signs Temp 97.3 F 09/07/18 12:00 Pulse 82 09/07/18 12:00 Resp 21 H 09/07/18 12:00 BP 152/68 H 09/07/18 12:00 Pulse Ox 98 09/07/18 12:00 Weight - Most Recent: 288 lb I&O - Last 24 Hours: Intake & Output 09/06/18 09/07/18 09/07/18 22:59 06:59 14:59 Intake Total 9843 358 9665 Output Total 450 Balance 1190 -150 1340 Lab Results Last 24 Hours: Laboratory Results - last 24 hr 09/06/18 09/06/18 09/07/18 Range/Units 17:12 19:48 06:55 WBC 11.2 H (4.0-10.2) K/uL RBC 2.72 L (4.33-5.41) M/uL Hgb 9.9 L (13.1-16.8) g/dL Hct 30.2 L (39.0-49.0) % MCV 111.0 H (84.0-98.0) fL MCH 36.4 H (28.2-33.3) pg MCHC 32.8 (31.7-36.0) g/dL RDW 15.6 H (11.2-14.1) % Plt Count 175 (150-350) K/uL Neut % (Auto) 72.8 (45.0-80.0) % Lymph % (Auto) 17.4 (10.0-50.0) % [place] % (Auto) 9.6 (2.0-14.0) % Eos % (Auto) 0.0 (0.0-5.0) % Baso % (Auto) 0.2 (0.0-2.0) % Neut # (Auto) 8.17 H (1.40-7.00) K/uL Lymph # (Auto) 1.95 (0.50-3.50) K/uL [place] # (Auto) 1.08 H (0.00-1.00) K/uL Eos # (Auto) 0.00 (0.00-0.50) K/uL Baso # (Auto) 0.02 (0.00-0.20) K/uL Sodium (136-145) mmol/L Potassium (3.5-5.1) mmol/L Chloride (98-107) mmol/L Carbon Dioxide (21.0-32.0) mmol/L BUN (7-18) mg/dL Creatinine (0.51-1.17) mg/dL Est Cr Clr Drug Dosing mL/min Estimated GFR (MDRD) mL/min Glucose (74-106) mg/dL POC Glucose 294 H* 265 H* (65-110) mg/dl Calcium (8.5-10.1) mg/dL Total Bilirubin (0.2-1.0) mg/dL AST (15-37) U/L ALT (12-78) U/L Alkaline Phosphatase (46-116) IU/L C-Reactive Protein (<=0.9) mg/dL Total Protein (6.4-8.2) g/dL Albumin (3.4-5.0) g/dL 09/07/18 09/07/18 09/07/18 Range/Units 06:55 07:21 11:37 WBC (4.0-10.2) K/uL RBC (4.33-5.41) M/uL Hgb (13.1-16.8) g/dL Hct (39.0-49.0) % MCV (84.0-98.0) fL MCH (28.2-33.3) pg MCHC (31.7-36.0) g/dL RDW (11.2-14.1) % Plt Count (150-350) K/uL Neut % (Auto) (45.0-80.0) % Lymph % (Auto) (10.0-50.0) % [place] % (Auto) (2.0-14.0) % Eos % (Auto) (0.0-5.0) % Baso % (Auto) (0.0-2.0) % Neut # (Auto) (1.40-7.00) K/uL Lymph # (Auto) (0.50-3.50) K/uL [place] # (Auto) (0.00-1.00) K/uL Eos # (Auto) (0.00-0.50) K/uL Baso # (Auto) (0.00-0.20) K/uL Sodium 136 (136-145) mmol/L Potassium 3.9 (3.5-5.1) mmol/L Chloride 99 (98-107) mmol/L Carbon Dioxide 31.1 (21.0-32.0) mmol/L BUN 37 H (7-18) mg/dL Creatinine 1.02 (0.51-1.17) mg/dL Est Cr Clr Drug Dosing 59.79 mL/min Estimated GFR (MDRD) > 60 mL/min Glucose 229 H (74-106) mg/dL POC Glucose 244 H 195 H (65-110) mg/dl Calcium 7.9 L (8.5-10.1) mg/dL Total Bilirubin 0.3 (0.2-1.0) mg/dL AST 19 (15-37) U/L ALT 35 (12-78) U/L Alkaline Phosphatase 63 (46-116) IU/L C-Reactive Protein 4.7 H (<=0.9) mg/dL Total Protein 5.6 L (6.4-8.2) g/dL Albumin 2.3 L (3.4-5.0) g/dL Murali Results Last 24 Hours: Microbiology 09/03/18 13:04 Aerobic Blood Culture - Preliminary Blood - Venous - Lab Draw NO GROWTH AFTER 4 DAYS Anaerobic Blood Culture - Preliminary NO GROWTH AFTER 4 DAYS 09/03/18 12:50 Aerobic Blood Culture - Preliminary Blood - Venous NO GROWTH AFTER 4 DAYS Anaerobic Blood Culture - Preliminary NO GROWTH AFTER 4 DAYS Med Orders - Current: Current Medications Acetaminophen (Tylenol) 650 mg PO Q4H PRN PRN Reason: Pain (Mild 1-3)/fever Albuterol/Ipratropium (Duoneb 3.0-0.5 Mg/3 Ml) 3 ml NEB Q4H PRN PRN Reason: Dyspnea Albuterol/Ipratropium (Duoneb 3.0-0.5 Mg/3 Ml) 3 ml NEB QID [facility] Last Admin: 09/07/18 13:18 Dose: 3 ml Allopurinol (Zyloprim) 300 mg PO DAILY [facility] Last Admin: 09/07/18 07:40 Dose: 300 mg Arformoterol Tartrate (Brovana) 15 mcg INH Q12HR [facility] Last Admin: 09/07/18 07:42 Dose: 15 mcg Artificial Tears (Liquitears 1.4% Ophth Soln) 0 ml EYEBOTH TID@0800,1200,2000 [facility] Last Admin: 09/07/18 13:17 Dose: 1 drop Carvedilol (Coreg) 9.375 mg PO BID [facility] Last Admin: 09/07/18 07:40 Dose: 9.375 mg Cholecalciferol (Vitamin D3) 1,000 units PO DAILY [facility] Last Admin: 09/07/18 07:41 Dose: 1,000 units Docusate Sodium (Colace) 100 mg PO BID [facility] Last Admin: 09/07/18 07:41 Dose: 100 mg Furosemide (Lasix) 40 mg PO DAILY [facility] Last Admin: 09/07/18 07:39 Dose: 40 mg Gabapentin (Neurontin) 300 mg PO TID [facility] Last Admin: 09/07/18 13:18 Dose: 300 mg Metronidazole 500 mg/ Premix 100 mls @ 100 mls/hr IV Q8H [facility] Last Admin: 09/07/18 13:18 Dose: 100 mls/hr Vancomycin HCl 1.5 gm/ Sodium (Chloride) 250 mls @ 130 mls/hr IV Q24H [facility] Last Admin: 09/06/18 15:42 Dose: 130 mls/hr Ibuprofen (Motrin) 400 mg PO Q6H PRN PRN Reason: Pain (mild 1-3) Insulin Glargine (Lantus) 20 unit SUBCUT BEDTIME [facility] Last Admin: 09/06/18 20:11 Dose: 20 units Insulin Human Lispro (Humalog) 8 unit SUBCUT TID@0800,1200,1800 [facility] Last Admin: 09/07/18 13:17 Dose: 8 unit Insulin Human NPH (Humulin N) 20 unit SQ Q12HR [facility] Last Admin: 09/07/18 07:44 Dose: 20 unit Isosorbide Mononitrate (Imdur) 60 mg PO DAILY [facility] Last Admin: 09/07/18 07:42 Dose: 60 mg Magnesium Oxide (Magnesium Oxide) 400 mg PO BID [facility] Last Admin: 09/07/18 07:41 Dose: 400 mg Methylprednisolone Sodium Succinate (Solu-Medrol) 40 mg IVPUSH Q12HR [facility] Last Admin: 09/07/18 07:45 Dose: 40 mg Nitrofurantoin Macrocrystals (Macrobid) 100 mg PO DAILY@1800 [facility] Last Admin: 09/06/18 17:08 Dose: 100 mg Omeprazole (Omeprazole) 20 mg PO BID [facility] Last Admin: 09/07/18 07:41 Dose: 20 mg Sodium Chloride (Saline Flush) 10 ml FLUSH ASDIRECTED PRN PRN Reason: Keep Vein Open Last Admin: 09/07/18 13:21 Dose: 10 ml Sodium Chloride (Saline Flush) 10 ml FLUSH Q12HR [facility] Last Admin: 09/07/18 07:45 Dose: 10 ml Tamsulosin HCl (Flomax) 0.4 mg PO DAILY [facility] Last Admin: 09/07/18 07:41 Dose: 0.4 mg Vancomycin HCl (Pharmacy To Dose - Vancomycin) 1 dose .XX ASDIRECTED [facility] Discontinued Medications Arformoterol Tartrate (Brovana) 15 mcg INH BID [facility] Last Admin: 09/04/18 07:47 Dose: 15 mcg Carvedilol (Coreg) 9.375 mg PO BIDMEALS [facility] Last Admin: 09/04/18 07:48 Dose: 9.375 mg Enoxaparin Sodium (Lovenox) 40 mg SUBCUT DAILY [facility] Last Admin: 09/06/18 07:33 Dose: 40 mg Levofloxacin/Dextrose 500 mg/ (Premix) 100 mls @ 100 mls/hr IV Q24H [facility] Last Admin: 09/03/18 14:47 Dose: 100 mls/hr Piperacillin Sod/Tazobactam (Sod 3.375 gm/ Sodium Chloride) 100 mls @ 200 mls/ hr IV Q6H [facility] Last Admin: 09/03/18 16:35 Dose: Not Given Piperacillin Sod/Tazobactam (Sod 3.375 gm/ Sodium Chloride) 100 mls @ 200 mls/ hr IV Q6H [facility] Last Admin: 09/05/18 08:41 Dose: 200 mls/hr Insulin Human Lispro (Humalog) 6 unit SUBCUT NOW ONE Stop: 09/04/18 11:32 Last Admin: 09/04/18 12:21 Dose: 6 units Insulin Human Lispro (Humalog) 15 unit SUBCUT ONETIME ONE Stop: 09/05/18 21:09 Last Admin: 09/04/18 22:45 Dose: 15 units Insulin Human Lispro (Humalog) 15 unit SUBCUT ONETIME ONE Stop: 09/05/18 14:16 Last Admin: 09/05/18 14:29 Dose: 15 unit Insulin Human NPH (Humulin N) 30 unit SQ ONETIME ONE Stop: 09/04/18 12:01 Last Admin: 09/04/18 12:23 Dose: 30 unit Insulin Human NPH (Humulin N) 30 unit SQ Q12HR [facility] Last Admin: 09/05/18 08:32 Dose: 30 unit Insulin Human NPH (Humulin N) 40 unit SQ Q12HR [facility] Last Admin: 09/06/18 07:34 Dose: 40 unit Methylprednisolone Sodium Succinate (Solu-Medrol) 125 mg IVPUSH Q6H [facility] Last Admin: 09/04/18 07:53 Dose: 125 mg Methylprednisolone Sodium Succinate (Solu-Medrol) 80 mg IVPUSH Q12HR [facility] Last Admin: 09/05/18 08:24 Dose: 80 mg Methylprednisolone Sodium Succinate (Solu-Medrol) 40 mg IVPUSH Q12HR [facility] Last Admin: 09/06/18 09:28 Dose: 40 mg - Exam Quality Assessment: Supplemental Oxygen General: Alert, Cooperative, No Acute Distress HEENT: Mucous Membr. Moist/[place] Neck: Trachea Midline, No JVD Lungs: Normal Respiratory Effort, Decreased Breath Sounds Cardiovascular: Regular Rate, Regular Rhythm GI/Abdominal Exam: Soft, Non-Tender, No Distention (Male) Exam: Deferred Back Exam: Normal Inspection Extremities: Non-Tender, Pedal Edema Skin: Warm, Dry, Intact, Ecchymosis Neurological: No New Focal Deficit, Other (generalized weakness) Psy/Mental Status: Alert, Normal Affect, Normal Mood - Problem List & Annotations (1) Comfort measures only status SNOMED Code(s): 22905949382392 Code(s): Z51.5 - ENCOUNTER FOR PALLIATIVE CARE Status: Acute Priority: Medium Current Visit: No (2) DNI (do not intubate) SNOMED Code(s): 247979516 Code(s): Z78.9 - OTHER SPECIFIED HEALTH STATUS Status: Acute Current Visit: No (3) DNR (do not resuscitate) Status: Acute Current Visit: No (4) Pneumonia SNOMED Code(s): 174744728 Code(s): J18.9 - PNEUMONIA, UNSPECIFIED ORGANISM Status: Acute Priority: High Current Visit: No Qualifiers: Pneumonia type: aspiration pneumonia Aspiration pneumonia type: unspecified Laterality: unspecified laterality (5) UTI, Urinary tract infectious disease SNOMED Code(s): 85511191 Code(s): N39.0 - URINARY TRACT INFECTION, SITE NOT SPECIFIED Status: Acute Current Visit: No (6) Anemia SNOMED Code(s): 115304773 Code(s): D64.9 - ANEMIA, UNSPECIFIED Status: Chronic Priority: Medium Current Visit: No Qualifiers: Anemia type: iron deficiency Annotation/Comment:: Both iron and vitamin B-12 deficiency verified during recent acute care hospitalization. Continue supplementation as per discharge orders with close follow-up by his regular provider. Note hemoglobin improved from 9.1 during recent acute care. Additional history of renal insufficiency and chronic diseases as contributing factors to his anemia. (7) COPD (chronic obstructive pulmonary disease) SNOMED Code(s): 37936949 Code(s): J44.9 - CHRONIC OBSTRUCTIVE PULMONARY DISEASE, UNSPECIFIED Status : Chronic Priority: High Current Visit: No Qualifiers: COPD type: COPD with acute lower respiratory infection Qualified Code(s): J44.0 - Chronic obstructive pulmonary disease with acute lower respiratory infection Annotation/Comment:: Patient will undergo IV antibiotics bronchodilators and steroids (8) Chronic GERD SNOMED Code(s): 853456787, 490937580 Code(s): K21.9 - GASTRO-ESOPHAGEAL REFLUX DISEASE WITHOUT ESOPHAGITIS Status: Chronic Priority: Medium Current Visit: No (9) Chronic diastolic (congestive) heart failure SNOMED Code(s): 213365634, 014337573 Code(s): I50.32 - CHRONIC DIASTOLIC (CONGESTIVE) HEART FAILURE Status: Chronic Priority: Medium Current Visit: No (10) Chronic kidney disease (CKD) SNOMED Code(s): 435266350 Code(s): N18.9 - CHRONIC KIDNEY DISEASE, UNSPECIFIED Status: Chronic Priority: High Current Visit: No Qualifiers: Chronic kidney disease stage: unspecified stage Qualified Code(s): N18.9 - Chronic kidney disease, unspecified Annotation/Comment:: History of diabetic nephropathy. Continue to observe closely. (11) Chronic respiratory failure with hypoxia SNOMED Code(s): 873226259 Code(s): J96.11 - CHRONIC RESPIRATORY FAILURE WITH HYPOXIA Status: Chronic Priority: High Current Visit: No (12) Coronary artery disease SNOMED Code(s): 06245970 Code(s): I25.10 - ATHSCL HEART DISEASE OF [place] CORONARY ARTERY W/O ANG PCTRS Status: Chronic Priority: Medium Current Visit: No Qualifiers: Coronary Disease-Associated Artery/Lesion type: [place] artery [place] vs. transplanted heart: [place] heart Associated angina: without angina Qualified Code(s): I25.10 - Atherosclerotic heart disease of [place] coronary artery without angina pectoris Annotation/Comment:: As above (13) Diabetes mellitus SNOMED Code(s): 78076355 Code(s): E11.9 - TYPE 2 DIABETES MELLITUS WITHOUT COMPLICATIONS Status: Chronic Priority: Medium Current Visit: No (14) Dyslipidemia SNOMED Code(s): 028082113 Code(s): E78.5 - HYPERLIPIDEMIA, UNSPECIFIED Status: Chronic Priority: Medium Current Visit: No Annotation/Comment:: Currently not under therapy. Weight loss in moderation advisable as above. Continue to observe closely by his regular provider. (15) Exertional dyspnea SNOMED Code(s): 34086271 Code(s): R06.09 - OTHER FORMS OF DYSPNEA Status: Chronic Priority: Medium Current Visit: No (16) Gout SNOMED Code(s): 20162966 Code(s): M10.9 - GOUT, UNSPECIFIED Status: Chronic Priority: Low Current Visit: No Qualifiers: Gout site: unspecified site Gout etiology: due to renal impairment Chronicity: chronic Presence of tophus: without tophus Qualified Code(s): M1A.30X0 - Chronic gout due to renal impairment, unspecified site, without tophus (tophi) (17) HTN, Benign hypertension SNOMED Code(s): 54389697 Code(s): I10 - ESSENTIAL (PRIMARY) HYPERTENSION Status: Chronic Priority : Medium Current Visit: No Annotation/Comment:: Continue on current blood pressure medications (18) Hypomagnesemia SNOMED Code(s): 822706930 Code(s): E83.42 - HYPOMAGNESEMIA Status: Chronic Priority: Medium Current Visit: No Onset Date: 06/29/16 Annotation/Comment:: Continue Magnesium oxide with caution secondary to his renal function (19) Neuropathy SNOMED Code(s): 893608783 Code(s): G62.9 - POLYNEUROPATHY, UNSPECIFIED Status: Chronic Priority: Medium Current Visit: No (20) Obesity (BMI 30-39.9) SNOMED Code(s): 113880478, 742449555 Code(s): E66.9 - OBESITY, UNSPECIFIED Status: Chronic Priority: Medium Current Visit: No Annotation/Comment:: Weight loss in moderation advisable. (21) Obstructive sleep apnea on CPAP SNOMED Code(s): 34671955 Code(s): G47.33 - OBSTRUCTIVE SLEEP APNEA (ADULT) (PEDIATRIC); Z99.89 - DEPENDENCE ON OTHER ENABLING MACHINES AND DEVICES Status: Chronic Priority: Low Current Visit: No Annotation/Comment:: using CPAP machinge at night, will continue (22) Osteoarthritis SNOMED Code(s): 989093747 Code(s): M19.90 - UNSPECIFIED OSTEOARTHRITIS, UNSPECIFIED SITE Status: Chronic Priority: Medium Current Visit: No Annotation/Comment:: Osteoarthritis stable during this hospitalization with no gout attacks despite elevated uric acid level with known previous history of hyperuricemia. (23) Oxygen dependent SNOMED Code(s): 776323394603 Code(s): Z99.81 - DEPENDENCE ON SUPPLEMENTAL OXYGEN Status: Chronic Priority: High Current Visit: No (24) Physical deconditioning SNOMED Code(s): 01138894510814 Code(s): R53.81 - OTHER MAL[place]ISE Status: Chronic Priority: High Current Visit: No (25) Weakness generalized SNOMED Code(s): 34208525 Code(s): R53.1 - WEAKNESS Status: Chronic Priority: High Current Visit : No (26) Enterococcus faecalis infection SNOMED Code(s): 748322710 Code(s): B95.2 - ENTEROCOCCUS THE CAUSE OF DISEASES CLASSIFIED ELSEWHERE Status: Acute Priority: High Current Visit: Yes (27) Elevated sedimentation rate SNOMED Code(s): 620065712 Code(s): R70.0 - ELEVATED ERYTHROCYTE SEDIMENTATION RATE Status: Acute Priority: High Current Visit: Yes - Problem List Review Problem List Initiated/Reviewed/Updated: Yes - My Orders Last 24 Hours: My Active Orders 09/06/18 20:00 Insulin NPH Human Isophane [HumuLIN N] 20 unit SQ Q12HR methylPREDNISolone Sod Succ [Solu-MEDROL] 40 mg IVPUSH Q12HR 09/07/18 15:30 SEDIMENTATION RATE AUTO [HEME] Routine VANCOMYCIN TROUGH [CHEM] Routine 09/08/18 05:11 BASIC METABOLIC PANEL,BMP [CHEM] Routine CBC WITH AUTO DIFF [HEME] Routine CRP [C-REACTIVE PROTEIN] [CHEM] Routine SEDIMENTATION RATE AUTO [HEME] Routine - Plan Plan:: 09/04/18 Dusty Seaman MD Feels okay. Weak. Continue IV antibiotics. Awaiting C&S results. 09/05/18 Dusty Seaman MD He says he feels okay but does admit his legs are not strong enough to hold up his body weight. He reminds me that he weighs right around ~300+ pounds If he falls down at home, his is unable to assist him back up. He will work with PT-OT. Urine C&S +enterococcus faelcalis. Antibiotics changed.Continue IV antbiotics, PT, OT,and care coordination. 09/06/18 Dusty Seaman MD No complaints. He is pivoting today but not walking. Continue with antibiotics and PT-OT. Discharge planning discussed. 09/07/18 Dusty Seaman MD He says he is improving. PT-OT and myself recommend to [place] to continue IVs and therapy. He refuses. Says he will go home. not here to discuss with her. Medically necessary to continue inpatient status to continue IV vancomycin (resistant entercoccus faecalis), monitor vancomycin trough, monitor renal function, monitoring blood sugars.
[2018-09-07] MEDS ORDERED: Furosemide 40 MG/4 ML VIAL IVPUSH ONE (15:00)
[2018-09-07] MEDS: Nitrofurantoin Monohydrate/Macrocrystalline 100 MG Cap PO SCH (17:26)
[2018-09-07] MEDS: Insulin Glarg,Human.Rec.Analog 100 UNIT/ML ML SUBCUT SCH (19:32)
[2018-09-08] MEDS: Sodium Chloride 0.9% 10 ML Syringe FLUSH PRN (04:51)
[2018-09-08] MEDS: metroNIDAZOLE/Normal Saline 500 MG in Premix Bag 1 BAG IV SCH (04:51)
[2018-09-08 07:40] LABS: CHLORIDE,CL 100 mmol/L (98-107); SODIUM,NA 138 mmol/L (136-145)
[2018-09-08] MEDS: Polyvinyl Alcohol 1.4% Ophth Soln 15 ML Bottle EYEBOTH SCH ×2 (07:42→11:04)
[2018-09-08] MEDS: Arformoterol 15 MCG/2 ML Neb Soln INH SCH (07:42)
[2018-09-08] MEDS: Albuterol/Ipratropium 3.0-0.5 MG/3 ML Neb Soln NEB SCH ×2 (07:42→11:04)
[2018-09-08] MEDS: Insulin Lispro 100 Units/ML 3 ML Vial SUBCUT SCH ×2 (07:42→11:08)
[2018-09-08] MEDS: Carvedilol 3.125 MG Tab PO SCH (07:44)
[2018-09-08] MEDS: Tamsulosin 0.4 MG Cap.ER PO SCH (07:44)
[2018-09-08] MEDS: Allopurinol 100 MG Tab PO SCH (07:45)
[2018-09-08] MEDS: Omeprazole 20 MG Cap.CR PO SCH (07:45)
[2018-09-08] MEDS: Cholecalciferol (Vitamin D3) 1,000 Unit Tab PO SCH (07:45)
[2018-09-08] MEDS: Magnesium Oxide 400 MG Tab PO SCH (07:45)
[2018-09-08] MEDS: Docusate Sodium 100 MG Cap PO SCH (07:46)
[2018-09-08] MEDS: Gabapentin 300 MG Cap PO SCH ×2 (07:46→11:04)
[2018-09-08] MEDS: Isosorbide Mononitrate 60 MG Tab.ER PO SCH (07:46)
[2018-09-08] MEDS ORDERED: Insulin Isophane NPH, Human 100 Units/ML 3 ML Vial SQ SCH (08:00)
[2018-09-08] MEDS ORDERED: methylPREDNISolone Sodium Succinate 40 MG/1 ML SDV IVPUSH SCH (08:00)
[2018-09-08] MEDS ORDERED: Furosemide 40 MG/4 ML VIAL IVPUSH SCH (08:00)
[2018-09-08] MEDS: Sodium Chloride 0.9% 10 ML Syringe FLUSH SCH (11:09)
[2018-09-08] MEDS ORDERED: metroNIDAZOLE 500 MG Tab PO ONE (12:00)
[2018-09-08] MEDS ORDERED: Nitrofurantoin Monohydrate/Macrocrystalline 100 MG Cap PO SCH (12:00)
[2018-09-08] MEDS: Furosemide 40 MG Tab PO ONE ×2 (12:44→12:47)
[2018-09-08] MEDS ORDERED: predniSONE 20 MG Tab PO ONE (12:49)
[2018-09-08 12:50] VITALS: BP 145/58
--- NOTE | 2018-09-08 22:13 | PCM.PN ---
- General Info Date of Service: 09/08/18 Functional Status: Reports: Pain Controlled - Review of Systems General: Reports: Weakness (improving) HEENT: Reports: No Symptoms Pulmonary: Reports: No Symptoms Cardiovascular: Reports: No Symptoms Gastrointestinal: Reports: No Symptoms Genitourinary: Reports: No Symptoms Musculoskeletal: Reports: No Symptoms Skin: Reports: Bruising Neurological: Reports: Weakness Psychiatric: Reports: No Symptoms - Patient Data Vitals - Most Recent: Last Vital Signs Temp 97.4 F 09/08/18 12:00 Pulse 89 09/08/18 12:00 Resp 20 09/08/18 12:00 BP 145/58 H 09/08/18 12:00 Pulse Ox 98 09/08/18 12:00 Weight - Most Recent: 284 lb 9.6 oz I&O - Last 24 Hours: Intake & Output 09/08/18 09/08/18 09/08/18 06:59 14:59 22:59 Intake Total 300 1560 Output Total 1000 Balance -700 1560 Lab Results Last 24 Hours: Laboratory Results - last 24 hr 09/08/18 09/08/18 09/08/18 Range/Units 06:03 06:55 06:55 WBC 10.9 H (4.0-10.2) K/uL RBC 2.99 L (4.33-5.41) M/uL Hgb 11.2 L (13.1-16.8) g/dL Hct 32.9 L (39.0-49.0) % MCV 110.0 H (84.0-98.0) fL MCH 37.5 H (28.2-33.3) pg MCHC 34.0 (31.7-36.0) g/dL RDW 16.0 H (11.2-14.1) % Plt Count 177 (150-350) K/uL Neut % (Auto) 66.0 (45.0-80.0) % Lymph % (Auto) 22.5 (10.0-50.0) % [place] % (Auto) 10.5 (2.0-14.0) % Eos % (Auto) 0.8 (0.0-5.0) % Baso % (Auto) 0.2 (0.0-2.0) % Neut # (Auto) 7.16 H (1.40-7.00) K/uL Lymph # (Auto) 2.44 (0.50-3.50) K/uL [place] # (Auto) 1.14 H (0.00-1.00) K/uL Eos # (Auto) 0.09 (0.00-0.50) K/uL Baso # (Auto) 0.02 (0.00-0.20) K/uL ESR 111 H (0-20) mm/hr Sodium 138 (136-145) mmol/L Potassium 4.0 (3.5-5.1) mmol/L Chloride 100 (98-107) mmol/L Carbon Dioxide 33.1 H (21.0-32.0) mmol/L BUN 34 H (7-18) mg/dL Creatinine 0.99 (0.51-1.17) mg/dL Est Cr Clr Drug Dosing 61.60 mL/min Estimated GFR (MDRD) > 60 mL/min Glucose 126 H (74-106) mg/dL POC Glucose 136 H (65-110) mg/dl Calcium 8.4 L (8.5-10.1) mg/dL C-Reactive Protein 3.4 H (<=0.9) mg/dL 09/08/18 Range/Units 11:01 WBC (4.0-10.2) K/uL RBC (4.33-5.41) M/uL Hgb (13.1-16.8) g/dL Hct (39.0-49.0) % MCV (84.0-98.0) fL MCH (28.2-33.3) pg MCHC (31.7-36.0) g/dL RDW (11.2-14.1) % Plt Count (150-350) K/uL Neut % (Auto) (45.0-80.0) % Lymph % (Auto) (10.0-50.0) % [place] % (Auto) (2.0-14.0) % Eos % (Auto) (0.0-5.0) % Baso % (Auto) (0.0-2.0) % Neut # (Auto) (1.40-7.00) K/uL Lymph # (Auto) (0.50-3.50) K/uL [place] # (Auto) (0.00-1.00) K/uL Eos # (Auto) (0.00-0.50) K/uL Baso # (Auto) (0.00-0.20) K/uL ESR (0-20) mm/hr Sodium (136-145) mmol/L Potassium (3.5-5.1) mmol/L Chloride (98-107) mmol/L Carbon Dioxide (21.0-32.0) mmol/L BUN (7-18) mg/dL Creatinine (0.51-1.17) mg/dL Est Cr Clr Drug Dosing mL/min Estimated GFR (MDRD) mL/min Glucose (74-106) mg/dL POC Glucose 250 H (65-110) mg/dl Calcium (8.5-10.1) mg/dL C-Reactive Protein (<=0.9) mg/dL [facility] Results Last 24 Hours: Microbiology 09/03/18 13:04 Aerobic Blood Culture - Final Blood - Venous - Lab Draw NO GROWTH AFTER 5 DAYS Anaerobic Blood Culture - Final NO GROWTH AFTER 5 DAYS 09/03/18 12:50 Aerobic Blood Culture - Final Blood - Venous NO GROWTH AFTER 5 DAYS Anaerobic Blood Culture - Final NO GROWTH AFTER 5 DAYS Med Orders - Current: Current Medications Discontinued Medications Acetaminophen (Tylenol) 650 mg PO Q4H PRN PRN Reason: Pain (Mild 1-3)/fever Last Admin: 09/07/18 19:34 Dose: 650 mg Albuterol/Ipratropium (Duoneb 3.0-0.5 Mg/3 Ml) 3 ml NEB Q4H PRN PRN Reason: Dyspnea Albuterol/Ipratropium (Duoneb 3.0-0.5 Mg/3 Ml) 3 ml NEB QID [facility] Last Admin: 09/08/18 11:04 Dose: 3 ml Allopurinol (Zyloprim) 300 mg PO DAILY [facility] Last Admin: 09/08/18 07:45 Dose: 300 mg Arformoterol Tartrate (Brovana) 15 mcg INH BID [facility] Last Admin: 09/04/18 07:47 Dose: 15 mcg Arformoterol Tartrate (Brovana) 15 mcg INH Q12HR [facility] Last Admin: 09/08/18 07:42 Dose: 15 mcg Artificial Tears (Liquitears 1.4% Ophth Soln) 0 ml EYEBOTH TID@0800,1200,2000 [facility] Last Admin: 09/08/18 11:04 Dose: 1 drop Carvedilol (Coreg) 9.375 mg PO BIDMEALS [facility] Last Admin: 09/04/18 07:48 Dose: 9.375 mg Carvedilol (Coreg) 9.375 mg PO BID [facility] Last Admin: 09/08/18 07:44 Dose: 9.375 mg Cholecalciferol (Vitamin D3) 1,000 units PO DAILY [facility] Last Admin: 09/08/18 07:45 Dose: 1,000 units Docusate Sodium (Colace) 100 mg PO BID [facility] Last Admin: 09/08/18 07:46 Dose: 100 mg Enoxaparin Sodium (Lovenox) 40 mg SUBCUT DAILY [facility] Last Admin: 09/06/18 07:33 Dose: 40 mg Furosemide (Lasix) 40 mg PO DAILY [facility] Last Admin: 09/07/18 07:39 Dose: 40 mg Furosemide (Lasix) 40 mg IVPUSH DAILY [facility] Last Admin: 09/08/18 11:09 Dose: Not Given Furosemide (Lasix) 40 mg IVPUSH NOW ONE Stop: 09/07/18 15:01 Last Admin: 09/07/18 15:39 Dose: 40 mg Furosemide (Lasix) 40 mg PO ONETIME ONE Stop: 09/08/18 12:01 Last Admin: 09/08/18 12:47 Dose: Not Given Gabapentin (Neurontin) 300 mg PO TID [facility] Last Admin: 09/08/18 11:04 Dose: 300 mg Levofloxacin/Dextrose 500 mg/ (Premix) 100 mls @ 100 mls/hr IV Q24H [facility] Last Admin: 09/03/18 14:47 Dose: 100 mls/hr Piperacillin Sod/Tazobactam (Sod 3.375 gm/ Sodium Chloride) 100 mls @ 200 mls/ hr IV Q6H [facility] Last Admin: 09/03/18 16:35 Dose: Not Given Piperacillin Sod/Tazobactam (Sod 3.375 gm/ Sodium Chloride) 100 mls @ 200 mls/ hr IV Q6H [facility] Last Admin: 09/05/18 08:41 Dose: 200 mls/hr Metronidazole 500 mg/ Premix 100 mls @ 100 mls/hr IV Q8H [facility] Last Admin: 09/08/18 04:51 Dose: 100 mls/hr Vancomycin HCl 1.5 gm/ Sodium (Chloride) 250 mls @ 130 mls/hr IV Q24H [facility] Last Admin: 09/07/18 17:25 Dose: 130 mls/hr Ibuprofen (Motrin) 400 mg PO Q6H PRN PRN Reason: Pain (mild 1-3) Insulin Glargine (Lantus) 20 unit SUBCUT BEDTIME [facility] Last Admin: 09/07/18 19:32 Dose: 20 units Insulin Human Lispro (Humalog) 8 unit SUBCUT TID@0800,1200,1800 [facility] Last Admin: 09/08/18 11:08 Dose: 8 unit Insulin Human Lispro (Humalog) 6 unit SUBCUT NOW ONE Stop: 09/04/18 11:32 Last Admin: 09/04/18 12:21 Dose: 6 units Insulin Human Lispro (Humalog) 15 unit SUBCUT ONETIME ONE Stop: 09/05/18 21:09 Last Admin: 09/04/18 22:45 Dose: 15 units Insulin Human Lispro (Humalog) 15 unit SUBCUT ONETIME ONE Stop: 09/05/18 14:16 Last Admin: 09/05/18 14:29 Dose: 15 unit Insulin Human NPH (Humulin N) 30 unit SQ ONETIME ONE Stop: 09/04/18 12:01 Last Admin: 09/04/18 12:23 Dose: 30 unit Insulin Human NPH (Humulin N) 30 unit SQ Q12HR [facility] Last Admin: 09/05/18 08:32 Dose: 30 unit Insulin Human NPH (Humulin N) 40 unit SQ Q12HR [facility] Last Admin: 09/06/18 07:34 Dose: 40 unit Insulin Human NPH (Humulin N) 20 unit SQ Q12HR [facility] Last Admin: 09/07/18 07:44 Dose: 20 unit Insulin Human NPH (Humulin N) 20 unit SQ DAILY [facility] Last Admin: 09/08/18 07:43 Dose: 20 unit Isosorbide Mononitrate (Imdur) 60 mg PO DAILY [facility] Last Admin: 09/08/18 07:46 Dose: 60 mg Magnesium Oxide (Magnesium Oxide) 400 mg PO BID [facility] Last Admin: 09/08/18 07:45 Dose: 400 mg Methylprednisolone Sodium Succinate (Solu-Medrol) 125 mg IVPUSH Q6H [facility] Last Admin: 09/04/18 07:53 Dose: 125 mg Methylprednisolone Sodium Succinate (Solu-Medrol) 80 mg IVPUSH Q12HR [facility] Last Admin: 09/05/18 08:24 Dose: 80 mg Methylprednisolone Sodium Succinate (Solu-Medrol) 40 mg IVPUSH Q12HR [facility] Last Admin: 09/06/18 09:28 Dose: 40 mg Methylprednisolone Sodium Succinate (Solu-Medrol) 40 mg IVPUSH Q12HR [facility] Last Admin: 09/07/18 07:45 Dose: 40 mg Methylprednisolone Sodium Succinate (Solu-Medrol) 40 mg IVPUSH DAILY [facility] Last Admin: 09/08/18 11:10 Dose: Not Given Metronidazole (Flagyl) 500 mg PO ONETIME ONE Stop: 09/08/18 12:01 Last Admin: 09/08/18 12:44 Dose: 500 mg Nitrofurantoin Macrocrystals (Macrobid) 100 mg PO DAILY@1800 [facility] Last Admin: 09/07/18 17:26 Dose: 100 mg Nitrofurantoin Macrocrystals (Macrobid) 100 mg PO DAILY@1200 [facility] Last Admin: 09/08/18 12:44 Dose: 100 mg Omeprazole (Omeprazole) 20 mg PO BID [facility] Last Admin: 09/08/18 07:45 Dose: 20 mg Prednisone (Prednisone) 20 mg PO ONETIME ONE Stop: 09/08/18 12:50 Last Admin: 09/08/18 13:50 Dose: 20 mg Sodium Chloride (Saline Flush) 10 ml FLUSH ASDIRECTED PRN PRN Reason: Keep Vein Open Last Admin: 09/08/18 04:51 Dose: 10 ml Sodium Chloride (Saline Flush) 10 ml FLUSH Q12HR [facility] Last Admin: 09/08/18 11:09 Dose: Not Given Tamsulosin HCl (Flomax) 0.4 mg PO DAILY [facility] Last Admin: 09/08/18 07:44 Dose: 0.4 mg Vancomycin HCl (Pharmacy To Dose - Vancomycin) 1 dose .XX ASDIRECTED [facility] - Exam Quality Assessment: Supplemental Oxygen General: Alert, Cooperative, No Acute Distress HEENT: Pupils Equal, Pupils Reactive, Mucous Membr. Moist/[place] Neck: Trachea Midline, No JVD Lungs: Normal Respiratory Effort, Decreased Breath Sounds Cardiovascular: Regular Rate, Regular Rhythm GI/Abdominal Exam: Soft, Non-Tender, No Distention (Male) Exam: Deferred Back Exam: Normal Inspection Extremities: Non-Tender, Pedal Edema Skin: Warm, Dry, Ecchymosis Neurological: No New Focal Deficit Psy/Mental Status: Alert, Normal Affect, Normal Mood - Problem List & Annotations (1) Comfort measures only status SNOMED Code(s): 71217946493669 Code(s): Z51.5 - ENCOUNTER FOR PALLIATIVE CARE Status: Acute Priority: Medium (2) DNI (do not intubate) SNOMED Code(s): 319788873 Code(s): Z78.9 - OTHER SPECIFIED HEALTH STATUS Status: Acute (3) DNR (do not resuscitate) Status: Acute (4) Pneumonia SNOMED Code(s): 829040692 Code(s): J18.9 - PNEUMONIA, UNSPECIFIED ORGANISM Status: Acute Priority: High Qualifiers: Pneumonia type: aspiration pneumonia Aspiration pneumonia type: unspecified Laterality: unspecified laterality (5) UTI, Urinary tract infectious disease SNOMED Code(s): 17847788 Code(s): N39.0 - URINARY TRACT INFECTION, SITE NOT SPECIFIED Status: Acute (6) Anemia SNOMED Code(s): 516223429 Code(s): D64.9 - ANEMIA, UNSPECIFIED Status: Chronic Priority: Medium Qualifiers: Anemia type: iron deficiency Annotation/Comment:: Both iron and vitamin B-12 deficiency verified during recent acute care hospitalization. Continue supplementation as per discharge orders with close follow-up by his regular provider. Note hemoglobin improved from 9.1 during recent acute care. Additional history of renal insufficiency and chronic diseases as contributing factors to his anemia. (7) COPD (chronic obstructive pulmonary disease) SNOMED Code(s): 79796772 Code(s): J44.9 - CHRONIC OBSTRUCTIVE PULMONARY DISEASE, UNSPECIFIED Status : Chronic Priority: High Qualifiers: COPD type: COPD with acute lower respiratory infection Qualified Code(s): J44.0 - Chronic obstructive pulmonary disease with acute lower respiratory infection Annotation/Comment:: Patient will undergo IV antibiotics bronchodilators and steroids (8) Chronic GERD SNOMED Code(s): 953746587, 380016938 Code(s): K21.9 - GASTRO-ESOPHAGEAL REFLUX DISEASE WITHOUT ESOPHAGITIS Status: Chronic Priority: Medium (9) Chronic diastolic (congestive) heart failure SNOMED Code(s): 318511368, 529373663 Code(s): I50.32 - CHRONIC DIASTOLIC (CONGESTIVE) HEART FAILURE Status: Chronic Priority: Medium (10) Chronic kidney disease (CKD) SNOMED Code(s): 514270979 Code(s): N18.9 - CHRONIC KIDNEY DISEASE, UNSPECIFIED Status: Chronic Priority: High Qualifiers: Chronic kidney disease stage: unspecified stage Qualified Code(s): N18.9 - Chronic kidney disease, unspecified Annotation/Comment:: History of diabetic nephropathy. Continue to observe closely. (11) Chronic respiratory failure with hypoxia SNOMED Code(s): 227475452 Code(s): J96.11 - CHRONIC RESPIRATORY FAILURE WITH HYPOXIA Status: Chronic Priority: High (12) Coronary artery disease SNOMED Code(s): 78557269 Code(s): I25.10 - ATHSCL HEART DISEASE OF [place] CORONARY ARTERY W/O ANG PCTRS Status: Chronic Priority: Medium Qualifiers: Coronary Disease-Associated Artery/Lesion type: [place] artery [place] vs. transplanted heart: [place] heart Associated angina: without angina Qualified Code(s): I25.10 - Atherosclerotic heart disease of [place] coronary artery without angina pectoris Annotation/Comment:: As above (13) Diabetes mellitus SNOMED Code(s): 16047319 Code(s): E11.9 - TYPE 2 DIABETES MELLITUS WITHOUT COMPLICATIONS Status: Chronic Priority: Medium (14) Dyslipidemia SNOMED Code(s): 211944234 Code(s): E78.5 - HYPERLIPIDEMIA, UNSPECIFIED Status: Chronic Priority: Medium Annotation/Comment:: Currently not under therapy. Weight loss in moderation advisable as above. Continue to observe closely by his regular provider. (15) Exertional dyspnea SNOMED Code(s): 76345869 Code(s): R06.09 - OTHER FORMS OF DYSPNEA Status: Chronic Priority: Medium (16) Gout SNOMED Code(s): 39210072 Code(s): M10.9 - GOUT, UNSPECIFIED Status: Chronic Priority: Low Qualifiers: Gout site: unspecified site Gout etiology: due to renal impairment Chronicity: chronic Presence of tophus: without tophus Qualified Code(s): M1A.30X0 - Chronic gout due to renal impairment, unspecified site, without tophus (tophi) (17) HTN, Benign hypertension SNOMED Code(s): 33322912 Code(s): I10 - ESSENTIAL (PRIMARY) HYPERTENSION Status: Chronic Priority : Medium Annotation/Comment:: Continue on current blood pressure medications (18) Hypomagnesemia SNOMED Code(s): 824485015 Code(s): E83.42 - HYPOMAGNESEMIA Status: Chronic Priority: Medium Onset Date: 06/29/16 Annotation/Comment:: Continue Magnesium oxide with caution secondary to his renal function (19) Neuropathy SNOMED Code(s): 691792275 Code(s): G62.9 - POLYNEUROPATHY, UNSPECIFIED Status: Chronic Priority: Medium (20) Obesity (BMI 30-39.9) SNOMED Code(s): 823335485, 345021604 Code(s): E66.9 - OBESITY, UNSPECIFIED Status: Chronic Priority: Medium Annotation/Comment:: Weight loss in moderation advisable. (21) Obstructive sleep apnea on CPAP SNOMED Code(s): 43928418 Code(s): G47.33 - OBSTRUCTIVE SLEEP APNEA (ADULT) (PEDIATRIC); Z99.89 - DEPENDENCE ON OTHER ENABLING MACHINES AND DEVICES Status: Chronic Priority: Low Annotation/Comment:: using CPAP machinge at night, will continue (22) Osteoarthritis SNOMED Code(s): 155847327 Code(s): M19.90 - UNSPECIFIED OSTEOARTHRITIS, UNSPECIFIED SITE Status: Chronic Priority: Medium Annotation/Comment:: Osteoarthritis stable during this hospitalization with no gout attacks despite elevated uric acid level with known previous history of hyperuricemia. (23) Oxygen dependent SNOMED Code(s): 354817349930 Code(s): Z99.81 - DEPENDENCE ON SUPPLEMENTAL OXYGEN Status: Chronic Priority: High (24) Physical deconditioning SNOMED Code(s): 23559700203246 Code(s): R53.81 - OTHER MALAISE Status: Chronic Priority: High (25) Weakness generalized SNOMED Code(s): 53398746 Code(s): R53.1 - WEAKNESS Status: Chronic Priority: High (26) Enterococcus faecalis infection SNOMED Code(s): 368835154 Code(s): B95.2 - ENTEROCOCCUS THE CAUSE OF DISEASES CLASSIFIED ELSEWHERE Status: Acute Priority: High (27) Elevated sedimentation rate SNOMED Code(s): 044084948 Code(s): R70.0 - ELEVATED ERYTHROCYTE SEDIMENTATION RATE Status: Acute Priority: High - Problem List Review Problem List Initiated/Reviewed/Updated: Yes - My Orders Last 24 Hours: My Active Orders 09/08/18 11:30 Discontinue Saline Lock [Peripheral IV Discontinue] [OM.PC] Routine 09/08/18 12:57 Ready for Discharge [RC] PER UNIT ROUTINE 09/08/18 15:23 Communication Order [RC] ROUTINE - Plan Plan:: 09/04/18 Dusty Seaman MD Feels okay. Weak. Continue IV antibiotics. Awaiting C&S results. 09/05/18 Dusty Seaman MD He says he feels okay but does admit his legs are not strong enough to hold up his body weight. He reminds me that he weighs right around ~300+ pounds If he falls down at home, his is unable to assist him back up. He will work with PT-OT. Urine C&S +enterococcus faelcalis. Antibiotics changed.Continue IV antbiotics, PT, OT,and care coordination. 09/06/18 Dusty Seaman MD No complaints. He is pivoting today but not walking. Continue with antibiotics and PT-OT. Discharge planning discussed. 09/07/18 Dusty Seaman MD He says he is improving. PT-OT and myself recommend to [facility] to continue IVs and therapy. He refuses. Says he will go home. not here to discuss with her. Medically necessary to continue inpatient status to continue IV vancomycin (resistant entercoccus faecalis), monitor vancomycin trough, monitor renal function, monitoring blood sugars. 09/08/18 Dusty Seaman MD He says he is going home. here. Long discussion. Discussed the benefit of [facility] and continued therapy. He says he understands but he is going home and will try it one more time. wants him to go to [facility] because of the benefits but she is supportive and trying to help in any way she can. They both agree to home health consultation. So he is discharged home with home health.
--- NOTE | 2018-09-08 22:16 | PCM.DCSUM1 ---
Discharge Summary - Hospital Course Diagnosis: Stroke: No - Discharge Data Discharge Date: 09/08/18 Discharge Disposition: Home, [facility] Preliminary Cause of *Q: Respiratory Failure Condition: Fair - Discharge Diagnosis/Problem(s) (1) Comfort measures only status SNOMED Code(s): 12178520288890 ICD Code: Z51.5 - ENCOUNTER FOR PALLIATIVE CARE Status: Acute Priority: Medium (2) DNI (do not intubate) SNOMED Code(s): 426599702 ICD Code: Z78.9 - OTHER SPECIFIED HEALTH STATUS Status: Acute (3) DNR (do not resuscitate) Status: Acute (4) Pneumonia SNOMED Code(s): 774059111 ICD Code: J18.9 - PNEUMONIA, UNSPECIFIED ORGANISM Status: Acute Priority : High Qualifiers: Pneumonia type: aspiration pneumonia Aspiration pneumonia type: unspecified Laterality: unspecified laterality (5) UTI, Urinary tract infectious disease SNOMED Code(s): 91800329 ICD Code: N39.0 - URINARY TRACT INFECTION, SITE NOT SPECIFIED Status: Acute (6) Anemia SNOMED Code(s): 337061120 ICD Code: D64.9 - ANEMIA, UNSPECIFIED Status: Chronic Priority: Medium Problem Details: Both iron and vitamin B-12 deficiency verified during recent acute care hospitalization. Continue supplementation as per discharge orders with close follow-up by his regular provider. Note hemoglobin improved from 9.1 during recent acute care. Additional history of renal insufficiency and chronic diseases as contributing factors to his anemia. Qualifiers: Anemia type: iron deficiency (7) COPD (chronic obstructive pulmonary disease) SNOMED Code(s): 60469115 ICD Code: J44.9 - CHRONIC OBSTRUCTIVE PULMONARY DISEASE, UNSPECIFIED Status : Chronic Priority: High Problem Details: Patient will undergo IV antibiotics bronchodilators and steroids Qualifiers: COPD type: COPD with acute lower respiratory infection Qualified Code(s): J44.0 - Chronic obstructive pulmonary disease with acute lower respiratory infection (8) Chronic GERD SNOMED Code(s): 625390656, 236453037 ICD Code: K21.9 - GASTRO-ESOPHAGEAL REFLUX DISEASE WITHOUT ESOPHAGITIS Status: Chronic Priority: Medium (9) Chronic diastolic (congestive) heart failure SNOMED Code(s): 595167473, 180753283 ICD Code: I50.32 - CHRONIC DIASTOLIC (CONGESTIVE) HEART FAILURE Status: Chronic Priority: Medium (10) Chronic kidney disease (CKD) SNOMED Code(s): 281685668 ICD Code: N18.9 - CHRONIC KIDNEY DISEASE, UNSPECIFIED Status: Chronic Priority: High Problem Details: History of diabetic nephropathy. Continue to observe closely. Qualifiers: Chronic kidney disease stage: unspecified stage Qualified Code(s): N18.9 - Chronic kidney disease, unspecified (11) Chronic respiratory failure with hypoxia SNOMED Code(s): 931015309 ICD Code: J96.11 - CHRONIC RESPIRATORY FAILURE WITH HYPOXIA Status: Chronic Priority: High (12) Coronary artery disease SNOMED Code(s): 20610353 ICD Code: I25.10 - ATHSCL HEART DISEASE OF [place] CORONARY ARTERY W/O ANG PCTRS Status: Chronic Priority: Medium Problem Details: As above Qualifiers: Coronary Disease-Associated Artery/Lesion type: [place] artery [place] vs. transplanted heart: [place] heart Associated angina: without angina Qualified Code(s): I25.10 - Atherosclerotic heart disease of [place] coronary artery without angina pectoris (13) Diabetes mellitus SNOMED Code(s): 09346747 ICD Code: E11.9 - TYPE 2 DIABETES MELLITUS WITHOUT COMPLICATIONS Status: Chronic Priority: Medium (14) Dyslipidemia SNOMED Code(s): 396231553 ICD Code: E78.5 - HYPERLIPIDEMIA, UNSPECIFIED Status: Chronic Priority: Medium Problem Details: Currently not under therapy. Weight loss in moderation advisable as above. Continue to observe closely by his regular provider. (15) Exertional dyspnea SNOMED Code(s): 73159754 ICD Code: R06.09 - OTHER FORMS OF DYSPNEA Status: Chronic Priority: Medium (16) Gout SNOMED Code(s): 75317622 ICD Code: M10.9 - GOUT, UNSPECIFIED Status: Chronic Priority: Low Qualifiers: Gout site: unspecified site Gout etiology: due to renal impairment Chronicity: chronic Presence of tophus: without tophus Qualified Code(s): M1A.30X0 - Chronic gout due to renal impairment, unspecified site, without tophus (tophi) (17) HTN, Benign hypertension SNOMED Code(s): 56142196 ICD Code: I10 - ESSENTIAL (PRIMARY) HYPERTENSION Status: Chronic Priority : Medium Problem Details: Continue on current blood pressure medications (18) Hypomagnesemia SNOMED Code(s): 035971351 ICD Code: E83.42 - HYPOMAGNESEMIA Status: Chronic Priority: Medium Onset Date: 06/29/16 Problem Details: Continue Magnesium oxide with caution secondary to his renal function (19) Neuropathy SNOMED Code(s): 423537865 ICD Code: G62.9 - POLYNEUROPATHY, UNSPECIFIED Status: Chronic Priority: Medium (20) Obesity (BMI 30-39.9) SNOMED Code(s): 793424379, 137678728 ICD Code: E66.9 - OBESITY, UNSPECIFIED Status: Chronic Priority: Medium Problem Details: Weight loss in moderation advisable. (21) Obstructive sleep apnea on CPAP SNOMED Code(s): 77131999 ICD Code: G47.33 - OBSTRUCTIVE SLEEP APNEA (ADULT) (PEDIATRIC); Z99.89 - DEPENDENCE ON OTHER ENABLING MACHINES AND DEVICES Status: Chronic Priority: Low Problem Details: using CPAP machinge at night, will continue (22) Osteoarthritis SNOMED Code(s): 873168466 ICD Code: M19.90 - UNSPECIFIED OSTEOARTHRITIS, UNSPECIFIED SITE Status: Chronic Priority: Medium Problem Details: Osteoarthritis stable during this hospitalization with no gout attacks despite elevated uric acid level with known previous history of hyperuricemia. (23) Oxygen dependent SNOMED Code(s): 433406769086 ICD Code: Z99.81 - DEPENDENCE ON SUPPLEMENTAL OXYGEN Status: Chronic Priority: High (24) Physical deconditioning SNOMED Code(s): 63554866587478 ICD Code: R53.81 - OTHER MALAISE Status: Chronic Priority: High (25) Weakness generalized SNOMED Code(s): 05854299 ICD Code: R53.1 - WEAKNESS Status: Chronic Priority: High (26) Enterococcus faecalis infection SNOMED Code(s): 034576736 ICD Code: B95.2 - ENTEROCOCCUS THE CAUSE OF DISEASES CLASSIFIED ELSEWHERE Status: Acute Priority: High (27) Elevated sedimentation rate SNOMED Code(s): 118645426 ICD Code: R70.0 - ELEVATED ERYTHROCYTE SEDIMENTATION RATE Status: Acute Priority: High - Patient Summary/Data Consults: Consultations 09/05/18 08:00 Consult to Case Management/Development Analyst [CONS] Routine Consult to Occupational Therapy [OT Evaluation and Treatment] [CONS] Routine Consult to Physical Therapy [PT Evaluation and Treatment] [CONS] Routine - Patient Instructions Diet: Diabetic Diet Activity: As Tolerated Driving: Do Not Drive Showering/Bathing: May Shower - Discharge Plan *PRESCRIPTION DRUG MONITORING PROGRAM REVIEWED*: Not Applicable *COPY OF PRESCRIPTION DRUG MONITORING REPORT IN PATIENT SG: Not Applicable Prescriptions/Med Rec: Nitrofurantoin [place]/Macrocryst [Nitrofurantoin [place]-MCR] 100 mg PO DAILY@1200 # 10 cap Home Medications: Home Meds Arformoterol [Brovana] 2 ml INH BID 05/04/14 [History] Budesonide [Pulmicort] 2 ml INH BID 05/04/14 [History] Furosemide 40 mg PO DAILY 05/04/14 [History] Gabapentin [Neurontin] 300 mg PO TID 05/04/14 [History] Multivitamin [Multivitamins] 1 tab PO DAILY 05/04/14 [History] Omeprazole 20 mg PO BID 05/04/14 [History] Isosorbide Mononitrate [Imdur] 60 mg PO DAILY 10/26/16 [History] Allopurinol [Zyloprim] 300 mg PO QAM 06/13/17 [History] Cholecalciferol (Vitamin D3) [Vitamin D3] 1,000 unit PO DAILY 06/13/17 [History] Docusate Sodium [Colace] 100 mg PO BID 12/28/17 [History] Cyanocobalamin (Vitamin B-12) [Vitamin B-12] 1,000 mcg SL DAILY #100 tab.subl [Rx] Acetaminophen [Tylenol] 650 mg PO Q4H PRN 05/13/18 [History] Albuterol/Ipratropium [DuoNeb 3.0-0.5 MG/3 ML] 3 ml NEB QID 05/13/18 [History] Carvedilol 3 tab PO BIDMEALS 05/13/18 [History] Magnesium Oxide [Magnesium] 400 mg PO BID 05/13/18 [History] Tamsulosin HCl [Flomax] 0.4 mg PO DAILY 06/13/18 [History] Ferrous Sulfate 325 mg PO BID tablet 06/19/18 [Rx] Insulin Detemir [Levemir Flextouch] 20 units SUBCUT BEDTIME #1 06/19/18 [Rx] Insulin Aspart [NovoLOG] 8 unit SQ TID@0800,1200,1800 09/03/18 [History] Polyvinyl Alcohol [LiquiTears 1.4% Ophth Soln] 1 ml EYEBOTH TID@0800,1200,199909/03/18 [History] predniSONE 20 mg PO WITHBREAKFAST 09/03/18 [History] Nitrofurantoin [place]/Macrocryst [Nitrofurantoin [place]-MCR] 100 mg PO DAILY@1200 # 10 cap 09/08/18 [Rx] Oxygen Therapy Mode: Nasal Cannula Oxygen Flow Rate (L/min): 3 Forms: ED Department Discharge Referrals: Astrid Damon, CERTIFIED COATINGS INSPECTOR [Primary Care Provider] - - Discharge Summary/Plan Comment DC Time >30 min.: No Discharge Summary/Plan Comment: 09/08/18 Recommend [facility] with therapy but he says no and he decides he is going home with home health. - Patient Data Vitals - Most Recent: Last Vital Signs Temp 97.4 F 09/08/18 12:00 Pulse 89 09/08/18 12:00 Resp 20 09/08/18 12:00 BP 145/58 H 09/08/18 12:00 Pulse Ox 98 09/08/18 12:00 Weight - Most Recent: 284 lb 9.6 oz I&O - Last 24 hours: Intake & Output 09/08/18 09/08/18 09/08/18 06:59 14:59 22:59 Intake Total 300 1560 Output Total 1000 Balance -700 1560 Lab Results - Last 24 hrs: Laboratory Results - last 24 hr 09/08/18 09/08/18 09/08/18 Range/Units 06:03 06:55 06:55 WBC 10.9 H (4.0-10.2) K/uL RBC 2.99 L (4.33-5.41) M/uL Hgb 11.2 L (13.1-16.8) g/dL Hct 32.9 L (39.0-49.0) % MCV 110.0 H (84.0-98.0) fL MCH 37.5 H (28.2-33.3) pg MCHC 34.0 (31.7-36.0) g/dL RDW 16.0 H (11.2-14.1) % Plt Count 177 (150-350) K/uL Neut % (Auto) 66.0 (45.0-80.0) % Lymph % (Auto) 22.5 (10.0-50.0) % [place] % (Auto) 10.5 (2.0-14.0) % Eos % (Auto) 0.8 (0.0-5.0) % Baso % (Auto) 0.2 (0.0-2.0) % Neut # (Auto) 7.16 H (1.40-7.00) K/uL Lymph # (Auto) 2.44 (0.50-3.50) K/uL [place] # (Auto) 1.14 H (0.00-1.00) K/uL Eos # (Auto) 0.09 (0.00-0.50) K/uL Baso # (Auto) 0.02 (0.00-0.20) K/uL ESR 111 H (0-20) mm/hr Sodium 138 (136-145) mmol/L Potassium 4.0 (3.5-5.1) mmol/L Chloride 100 (98-107) mmol/L Carbon Dioxide 33.1 H (21.0-32.0) mmol/L BUN 34 H (7-18) mg/dL Creatinine 0.99 (0.51-1.17) mg/dL Est Cr Clr Drug Dosing 61.60 mL/min Estimated GFR (MDRD) > 60 mL/min Glucose 126 H (74-106) mg/dL POC Glucose 136 H (65-110) mg/dl Calcium 8.4 L (8.5-10.1) mg/dL C-Reactive Protein 3.4 H (<=0.9) mg/dL 09/08/18 Range/Units 11:01 WBC (4.0-10.2) K/uL RBC (4.33-5.41) M/uL Hgb (13.1-16.8) g/dL Hct (39.0-49.0) % MCV (84.0-98.0) fL MCH (28.2-33.3) pg MCHC (31.7-36.0) g/dL RDW (11.2-14.1) % Plt Count (150-350) K/uL Neut % (Auto) (45.0-80.0) % Lymph % (Auto) (10.0-50.0) % [place] % (Auto) (2.0-14.0) % Eos % (Auto) (0.0-5.0) % Baso % (Auto) (0.0-2.0) % Neut # (Auto) (1.40-7.00) K/uL Lymph # (Auto) (0.50-3.50) K/uL [place] # (Auto) (0.00-1.00) K/uL Eos # (Auto) (0.00-0.50) K/uL Baso # (Auto) (0.00-0.20) K/uL ESR (0-20) mm/hr Sodium (136-145) mmol/L Potassium (3.5-5.1) mmol/L Chloride (98-107) mmol/L Carbon Dioxide (21.0-32.0) mmol/L BUN (7-18) mg/dL Creatinine (0.51-1.17) mg/dL Est Cr Clr Drug Dosing mL/min Estimated GFR (MDRD) mL/min Glucose (74-106) mg/dL POC Glucose 250 H (65-110) mg/dl Calcium (8.5-10.1) mg/dL C-Reactive Protein (<=0.9) mg/dL EMERY Results - Last 24 hrs: Microbiology 09/03/18 13:04 Aerobic Blood Culture - Final Blood - Venous - Lab Draw NO GROWTH AFTER 5 DAYS Anaerobic Blood Culture - Final NO GROWTH AFTER 5 DAYS 09/03/18 12:50 Aerobic Blood Culture - Final Blood - Venous NO GROWTH AFTER 5 DAYS Anaerobic Blood Culture - Final NO GROWTH AFTER 5 DAYS Med Orders - Current: Current Medications Discontinued Medications Acetaminophen (Tylenol) 650 mg PO Q4H PRN PRN Reason: Pain (Mild 1-3)/fever Last Admin: 09/07/18 19:34 Dose: 650 mg Albuterol/Ipratropium (Duoneb 3.0-0.5 Mg/3 Ml) 3 ml NEB Q4H PRN PRN Reason: Dyspnea Albuterol/Ipratropium (Duoneb 3.0-0.5 Mg/3 Ml) 3 ml NEB QID [facility] Last Admin: 09/08/18 11:04 Dose: 3 ml Allopurinol (Zyloprim) 300 mg PO DAILY [facility] Last Admin: 09/08/18 07:45 Dose: 300 mg Arformoterol Tartrate (Brovana) 15 mcg INH BID [facility] Last Admin: 09/04/18 07:47 Dose: 15 mcg Arformoterol Tartrate (Brovana) 15 mcg INH Q12HR [facility] Last Admin: 09/08/18 07:42 Dose: 15 mcg Artificial Tears (Liquitears 1.4% Ophth Soln) 0 ml EYEBOTH TID@0800,1200,2000 [facility] Last Admin: 09/08/18 11:04 Dose: 1 drop Carvedilol (Coreg) 9.375 mg PO BIDMEALS [facility] Last Admin: 09/04/18 07:48 Dose: 9.375 mg Carvedilol (Coreg) 9.375 mg PO BID [facility] Last Admin: 09/08/18 07:44 Dose: 9.375 mg Cholecalciferol (Vitamin D3) 1,000 units PO DAILY [facility] Last Admin: 09/08/18 07:45 Dose: 1,000 units Docusate Sodium (Colace) 100 mg PO BID [facility] Last Admin: 09/08/18 07:46 Dose: 100 mg Enoxaparin Sodium (Lovenox) 40 mg SUBCUT DAILY [facility] Last Admin: 09/06/18 07:33 Dose: 40 mg Furosemide (Lasix) 40 mg PO DAILY [facility] Last Admin: 09/07/18 07:39 Dose: 40 mg Furosemide (Lasix) 40 mg IVPUSH DAILY [facility] Last Admin: 09/08/18 11:09 Dose: Not Given Furosemide (Lasix) 40 mg IVPUSH NOW ONE Stop: 09/07/18 15:01 Last Admin: 09/07/18 15:39 Dose: 40 mg Furosemide (Lasix) 40 mg PO ONETIME ONE Stop: 09/08/18 12:01 Last Admin: 09/08/18 12:47 Dose: Not Given Gabapentin (Neurontin) 300 mg PO TID [facility] Last Admin: 09/08/18 11:04 Dose: 300 mg Levofloxacin/Dextrose 500 mg/ (Premix) 100 mls @ 100 mls/hr IV Q24H [facility] Last Admin: 09/03/18 14:47 Dose: 100 mls/hr Piperacillin Sod/Tazobactam (Sod 3.375 gm/ Sodium Chloride) 100 mls @ 200 mls/ hr IV Q6H [facility] Last Admin: 09/03/18 16:35 Dose: Not Given Piperacillin Sod/Tazobactam (Sod 3.375 gm/ Sodium Chloride) 100 mls @ 200 mls/ hr IV Q6H [facility] Last Admin: 09/05/18 08:41 Dose: 200 mls/hr Metronidazole 500 mg/ Premix 100 mls @ 100 mls/hr IV Q8H [facility] Last Admin: 09/08/18 04:51 Dose: 100 mls/hr Vancomycin HCl 1.5 gm/ Sodium (Chloride) 250 mls @ 130 mls/hr IV Q24H [facility] Last Admin: 09/07/18 17:25 Dose: 130 mls/hr Ibuprofen (Motrin) 400 mg PO Q6H PRN PRN Reason: Pain (mild 1-3) Insulin Glargine (Lantus) 20 unit SUBCUT BEDTIME [facility] Last Admin: 09/07/18 19:32 Dose: 20 units Insulin Human Lispro (Humalog) 8 unit SUBCUT TID@0800,1200,1800 [facility] Last Admin: 09/08/18 11:08 Dose: 8 unit Insulin Human Lispro (Humalog) 6 unit SUBCUT NOW ONE Stop: 09/04/18 11:32 Last Admin: 09/04/18 12:21 Dose: 6 units Insulin Human Lispro (Humalog) 15 unit SUBCUT ONETIME ONE Stop: 09/05/18 21:09 Last Admin: 09/04/18 22:45 Dose: 15 units Insulin Human Lispro (Humalog) 15 unit SUBCUT ONETIME ONE Stop: 09/05/18 14:16 Last Admin: 09/05/18 14:29 Dose: 15 unit Insulin Human NPH (Humulin N) 30 unit SQ ONETIME ONE Stop: 09/04/18 12:01 Last Admin: 09/04/18 12:23 Dose: 30 unit Insulin Human NPH (Humulin N) 30 unit SQ Q12HR [facility] Last Admin: 09/05/18 08:32 Dose: 30 unit Insulin Human NPH (Humulin N) 40 unit SQ Q12HR [facility] Last Admin: 09/06/18 07:34 Dose: 40 unit Insulin Human NPH (Humulin N) 20 unit SQ Q12HR [facility] Last Admin: 09/07/18 07:44 Dose: 20 unit Insulin Human NPH (Humulin N) 20 unit SQ DAILY [facility] Last Admin: 09/08/18 07:43 Dose: 20 unit Isosorbide Mononitrate (Imdur) 60 mg PO DAILY [facility] Last Admin: 09/08/18 07:46 Dose: 60 mg Magnesium Oxide (Magnesium Oxide) 400 mg PO BID [facility] Last Admin: 09/08/18 07:45 Dose: 400 mg Methylprednisolone Sodium Succinate (Solu-Medrol) 125 mg IVPUSH Q6H [facility] Last Admin: 09/04/18 07:53 Dose: 125 mg Methylprednisolone Sodium Succinate (Solu-Medrol) 80 mg IVPUSH Q12HR [facility] Last Admin: 09/05/18 08:24 Dose: 80 mg Methylprednisolone Sodium Succinate (Solu-Medrol) 40 mg IVPUSH Q12HR [facility] Last Admin: 09/06/18 09:28 Dose: 40 mg Methylprednisolone Sodium Succinate (Solu-Medrol) 40 mg IVPUSH Q12HR [facility] Last Admin: 09/07/18 07:45 Dose: 40 mg Methylprednisolone Sodium Succinate (Solu-Medrol) 40 mg IVPUSH DAILY [facility] Last Admin: 09/08/18 11:10 Dose: Not Given Metronidazole (Flagyl) 500 mg PO ONETIME ONE Stop: 09/08/18 12:01 Last Admin: 09/08/18 12:44 Dose: 500 mg Nitrofurantoin Macrocrystals (Macrobid) 100 mg PO DAILY@1800 [facility] Last Admin: 09/07/18 17:26 Dose: 100 mg Nitrofurantoin Macrocrystals (Macrobid) 100 mg PO DAILY@1200 [facility] Last Admin: 09/08/18 12:44 Dose: 100 mg Omeprazole (Omeprazole) 20 mg PO BID [facility] Last Admin: 09/08/18 07:45 Dose: 20 mg Prednisone (Prednisone) 20 mg PO ONETIME ONE Stop: 09/08/18 12:50 Last Admin: 09/08/18 13:50 Dose: 20 mg Sodium Chloride (Saline Flush) 10 ml FLUSH ASDIRECTED PRN PRN Reason: Keep Vein Open Last Admin: 09/08/18 04:51 Dose: 10 ml Sodium Chloride (Saline Flush) 10 ml FLUSH Q12HR [facility] Last Admin: 09/08/18 11:09 Dose: Not Given Tamsulosin HCl (Flomax) 0.4 mg PO DAILY [facility] Last Admin: 02/22/19 07:44 Dose: 0.4 mg Vancomycin HCl (Pharmacy To Dose - Vancomycin) 1 dose .XX ASDIRECTED SALOMÓN
== END 2018-09-08 15:12 | disposition home health service (06) | DRG 178 ==
LOC: LL.ED 12:32 → LL.MS 13:30
PROVIDERS: ADMIT Family Medicine; ATTEND Family Medicine
DX: J69.0 Pneumonitis due to inhalation of food and vomit (principal); N39.0 Urinary tract infection, site not specified; J44.0 Chronic obstructive pulmonary disease with (acute) lower respiratory infection; I13.0 Hypertensive heart and chronic kidney disease with heart failure and stage 1 through stage 4 chronic kidney disease, or unspecified chronic kidney disease; I50.32 Chronic diastolic (congestive) heart failure; J96.11 Chronic respiratory failure with hypoxia; I42.9 Cardiomyopathy, unspecified; Z68.41 Body mass index [BMI] 40.0-44.9, adult; Z51.5 Encounter for palliative care; Z66 Do not resuscitate; D50.9 Iron deficiency anemia, unspecified; K21.9 Gastro-esophageal reflux disease without esophagitis; N18.9 Chronic kidney disease, unspecified; E11.22 Type 2 diabetes mellitus with diabetic chronic kidney disease; I25.10 Atherosclerotic heart disease of native coronary artery without angina pectoris; E78.5 Hyperlipidemia, unspecified; M1A.30X0 Chronic gout due to renal impairment, unspecified site, without tophus (tophi); E83.42 Hypomagnesemia; E11.42 Type 2 diabetes mellitus with diabetic polyneuropathy; E66.9 Obesity, unspecified; G47.33 Obstructive sleep apnea (adult) (pediatric); M19.90 Unspecified osteoarthritis, unspecified site; B95.2 Enterococcus as the cause of diseases classified elsewhere; R70.0 Elevated erythrocyte sedimentation rate; Z99.81 Dependence on supplemental oxygen; H91.90 Unspecified hearing loss, unspecified ear; H54.7 Unspecified visual loss; H35.30 Unspecified macular degeneration; E11.319 Type 2 diabetes mellitus with unspecified diabetic retinopathy without macular edema; H91.12 Presbycusis, left ear; H81.02 Meniere's disease, left ear; E78.00 Pure hypercholesterolemia, unspecified; I73.9 Peripheral vascular disease, unspecified; I36.1 Nonrheumatic tricuspid (valve) insufficiency; K59.09 Other constipation; K27.9 Peptic ulcer, site unspecified, unspecified as acute or chronic, without hemorrhage or perforation; N40.0 Benign prostatic hyperplasia without lower urinary tract symptoms; M81.0 Age-related osteoporosis without current pathological fracture; Z79.4 Long term (current) use of insulin; Z79.52 Long term (current) use of systemic steroids; Z79.899 Other long term (current) drug therapy; Z88.8 Allergy status to other drugs, medicaments and biological substances; Z86.010 Personal history of colon polyps; Z85.22 Personal history of malignant neoplasm of nasal cavities, middle ear, and accessory sinuses; Z98.42 Cataract extraction status, left eye; Z98.41 Cataract extraction status, right eye
CPT/HCPCS: 36000; 36415; 71046; 76700; 80048; 80053; 80202; 81001; 82962; 83605; 83735; 83880; 84550; 85025; 85652; 86140; 87040; 87086; 87088; 87186; 87804; 93005; 94640; 97110-GP; 97116-GP; 97163-GP; 97165-GO; 97530-GP; 99285; A9270-GY; J1650; J1815; J1815-GY; J1940; J1956; J2543; J2920; J2930; J3370; J3490; J7050; J7620-GY

== ENCOUNTER 2018-10-13 13:00 | Emergency (ER) | payer MEDICARE, BC ==
[2018-10-13 13:47] VITALS: BP 148/73
--- NOTE | 2018-10-13 13:51 | EDM.PDOC ---
ED HPI GENERAL MEDICAL PROBLEM - General Chief Complaint: Lower Extremity Injury/Pain Stated Complaint: fall, leg weakness x 2 days Time Seen by Provider: 10/13/18 13:15 Source of Information: Reports: Patient, Family History Limitations: Reports: Physical Impairment, Respiratory Distress - History of Present Illness INITIAL COMMENTS - FREE TEXT/NARRATIVE: Patient is a 78-year-old who was recently discharged from the hospital for about 2 weeks time secondary to pneumonia congestive heart failure patient was a resident at [facility] but ended up going home with the did fairly well for about 2 weeks before the last 2 days has been progressively getting weaker with right leg pain on ambulation this morning patient got up and was on the wheelchair did get up from the wheelchair and attempted to walk to the bathroom which she is able to do all the time at this time patient missed the door handle and fell and couldn't get up 911 was called and paramedics this patched and patient was brought in for evaluation at this time patient complains of left leg pain from hip to ankle especially on passive flexion and extension of hip knee. Duration: Day(s): (Past 2 days), Getting Worse Location: Reports: Lower Extremity, Right Quality: Reports: Throbbing Severity: Moderate Improves with: Reports: Rest Worsens with: Reports: Movement Context: Reports: Trauma Associated Symptoms: Reports: No Other Symptoms Treatments GAG WRITER: Reports: Breathing Treatments, Oxygen Right Leg Pain Score (Numeric/FACES): 7 - Related Data Allergies Allergy/AdvReac Type Severity Reaction Status Date / Time celecoxib Allergy Cannot Verified 10/13/18 13:19 Remember diltiazem Allergy Cannot Verified 10/13/18 13:19 Remember Csvsmea-Mlu-Vlb Reductase Allergy Muscle Verified 10/13/18 13:19 Inhibitor Aches tiotropium bromide Allergy URINARY Verified 10/13/18 13:19 [From [facility] with RETENTION HandiHaler] Home Meds: Home Meds Arformoterol [Brovana] 2 ml INH BID 05/04/14 [History] Budesonide [Pulmicort] 2 ml INH BID 05/04/14 [History] Furosemide 40 mg PO DAILY 05/04/14 [History] Gabapentin [Neurontin] 300 mg PO TID 05/04/14 [History] Multivitamin [Multivitamins] 1 tab PO DAILY 05/04/14 [History] Omeprazole 20 mg PO BID 05/04/14 [History] Isosorbide Mononitrate [Imdur] 60 mg PO DAILY 10/26/16 [History] Allopurinol [Zyloprim] 300 mg PO QAM 06/13/17 [History] Cholecalciferol (Vitamin D3) [Vitamin D3] 1,000 unit PO DAILY 06/13/17 [History] Docusate Sodium [Colace] 100 mg PO BID 12/28/17 [History] Cyanocobalamin (Vitamin B-12) [Vitamin B-12] 1,000 mcg SL DAILY #100 tab.subl [Rx] Acetaminophen [Tylenol] 650 mg PO Q4H PRN 05/13/18 [History] Albuterol/Ipratropium [DuoNeb 3.0-0.5 MG/3 ML] 3 ml NEB TID 05/13/18 [History] Carvedilol 3 tab PO BIDMEALS 05/13/18 [History] Magnesium Oxide [Magnesium] 400 mg PO BID 05/13/18 [History] Tamsulosin HCl [Flomax] 0.4 mg PO DAILY 06/13/18 [History] Ferrous Sulfate 325 mg PO BID tablet 06/19/18 [Rx] Insulin Detemir [Levemir Flextouch] 20 units SUBCUT BEDTIME #1 06/19/18 [Rx] Insulin Aspart [NovoLOG] 8 unit SQ TID@0800,1200,1800 09/03/18 [History] Polyvinyl Alcohol [LiquiTears 1.4% Ophth Soln] 1 ml EYEBOTH TID@0800,1200,2000 09/03/18 [History] predniSONE 20 mg PO WITHBREAKFAST 09/03/18 [History] Past Medical History HEENT History: Reports: Cataract, Hard of Hearing, Impaired Vision, Macular Degeneration, Other (See Below) Other HEENT History: Glasses, macular degeneration and diabetic retinopathy, 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 and chronic left- sided tinnitus secondary to Mnire's disease, patient has not used his hearing aides secondary to ineffectiveness Cardiovascular History: Reports: Aneurysm, Arrhythmia, CAD, Cardiomyopathy, Heart Failure, Heart Murmur, High Cholesterol, Hypertension, PVD, Other (See Below) Other Cardiovascular History: PVCs, bigeminy, complete right bundle branch block , PACs, cardiomegaly with diastolic dysfunction by echocardiogram, recurrent CHF , tricuspid valve insufficiency, infrarenal abdominal aortic aneurysm initially diagnosed in 2006, chronic lymphedema of the lower extremities Respiratory History: Reports: Bronchitis, Recurrent, COPD, Pneumonia, Recurrent , Pulmonary Fibrosis, Sleep Apnea, Other (See Below) Other Respiratory History: 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 pylori , umbilical hernia, benign hepatic cysts by CT scan on 05/26/98 Genitourinary History: Reports: Acute Renal Failure, BPH, Chronic Renal Insuffiency, Diabetic Nephropathy, Prostate Disorder, Renal Disease, Other (See Below) Other Genitourinary History: Acute renal failure with secondary hypotension secondary to NSAIDs use on 10/01/14, BPH with history of PSA elevation, end- stage renal disease-stage III, erectile dysfunction Musculoskeletal History: Reports: Arthritis, Back Pain, Chronic, Fracture, Gout , Neck Pain, Chronic, Osteoarthritis, Osteoporosis, Other (See Below) Other Musculoskeletal History: Spinal stenosis at L4-5 with disc prolapse, positive NENO however no known SLE, proximal left fibular fracture in September 2014 Neurological History: Reports: Neuropathy, Diabetic, Neuropathy, Peripheral Psychiatric History: Reports: None Endocrine/Metabolic History: Reports: Diabetes, Type II, IDDM, Osteoporosis Hematologic History: Reports: None 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/04 Dermatologic History: Reports: Venous Stasis Dermatitis - Infectious Disease History Infectious Disease History: Reports: Chicken Pox, Helicobacter Pylori, Mumps, Shingles - Past Surgical History Head Surgeries/Procedures: Reports: None HEENT Surgical History: Reports: Cataract Surgery, Laser Surgery, Oral Surgery, Tonsillectomy Other HEENT Surgeries/Procedures: Right cataract surgery on 05/23/03, left cataract surgery on 06/12/04, tonsillectomy at age 9, left eye YAG treatment, complete teeth extraction Cardiovascular Surgical History: Reports: None GI Surgical History: Reports: Colonoscopy, EGD Other GI Surgeries/Procedures: Last Colonoscopy and EGD on 09/25/09, small bowel series on 10/02/09 Male Surgical History: Reports: Prostatectomy, TURP-Transurethral Resection of Prostate Other Male Surgeries/Procedures: Suprapubic partial prostatectomy in September 2004 with no evidence of prostate cancer despite previous PSA elevation Neurological Surgical History: Reports: Lumbar Spine, Other (See Below) Other Neurological Surgeries/Procedures: Unknown type of back surgeries x2 in the lumbar region Musculoskeletal Surgical History: Reports: None Oncologic Surgical History: Reports: Other (See Below) Other Oncologic Surgeries/Procedures: Mohs procedure as above Dermatological Surgical History: Reports: Skin Biopsy - Past Imaging History Past Imaging History: Reports: Cardiac Echo, Carotid US, CAT Scan, DEXA Scan, Holter Monitor, MRI, PFT, Sleep Study, Stress Testing, Ultrasound, Venous Doppler, Other (See Below) Social & Family History - Family History HEENT: Reports: None Cardiac: Reports: CAD, Hypertension, NM, Other (See Below) Other Cardiac Family History: Maternal uncle with fatal NM at age 42, another maternal uncle with fatal NM at age 48, mother with hypertension, patient denies history of coronary artery disease in sister despite [place] records Respiratory: Reports: COPD, Sleep Apnea, Other (See Below) Other Respiratory Family Hisory: Brother with COPD and sleep apnea with history of tobacco use : Reports: None OBGYN: Reports: None Musculoskeletal: Reports: Arthritis, Osteoarthritis, Other (See Below) Other Musculoskeletal Family History: Brother with osteoarthritis Neurological: Reports: Cerebral Aneurysms, CVA, Neuropathy, Peripheral, Other ( See Below) Other Neurological Family History: Sister with fatal cerebral aneurysm at age 42 , maternal uncle with fatal hemorrhagic CVA at age 65 , patient denies CVA in brother despite [place] records, brother with peripheral neuropathy Psychiatric: Reports: None Endocrine/Metabolic: Reports: None Hematologic: Reports: None Immunologic: Reports: None Oncologic: Reports: Breast, Other (See Below) Other Oncologic Family History: Mother with unknown type of fatal cancer at age 65, sister with breast cancer in her 60s - Tobacco Use Smoking Status *Q: Current Status Unknown - Caffeine Use Caffeine Use: Reports: Coffee Caffeine Use Comment: 3-4 cups of coffee per day, 1 soda per week - Recreational Drug Use Recreational Drug Use: No - Living Situation & Occupation Living situation: Reports: Occupation: Retired Review of Systems - Review of Systems Review Of Systems: See Below Constitutional: Reports: Weakness Eyes: Reports: Other (History bilateral cataract removal) Ears: Reports: Other (Decrease hearing bilaterally) Nose: Reports: No Symptoms Respiratory: Reports: Shortness of Breath Cardiovascular: Reports: No Symptoms GI/Abdominal: Reports: No Symptoms Genitourinary: Reports: Other (Indwelling Rodarte catheter) Musculoskeletal: Reports: Leg Pain, Joint Pain (Right leg) Skin: Reports: No Symptoms Neurological: Reports: No Symptoms Psychiatric: Reports: No Symptoms ED EXAM, GENERAL - Physical Exam Exam: See Below Exam Limited By: Respiratory Distress General Appearance: Mild Distress Eye Exam: Bilateral Eye: EOMI, PERRL Ears: Normal External Exam, Normal Canal, Hearing Grossly Normal, Normal TMs Nose: Normal Inspection, Normal Mucosa, No Blood Throat/Mouth: Normal Inspection, Normal Lips, Normal Teeth, Normal Gums, Normal Oropharynx, Normal Voice, No Airway Compromise Head: Atraumatic, Normocephalic Neck: Normal Inspection, Supple, Non-Tender, Full Range of Motion Respiratory/Chest: Lungs Clear, Normal Breath Sounds Cardiovascular: Normal Peripheral Pulses, Regular Rate, Rhythm. No: No Edema GI/Abdominal: Normal Bowel Sounds, Soft, Non-Tender, No Organomegaly, No Distention, No Abnormal Bruit, No Mass, Other (Umbilical hernia) (Male) Exam: Deferred, Other (Indwelling catheter) Rectal (Males) Exam: Deferred Back Exam: Normal Inspection, Full Range of Motion, NT Extremities: Pedal Edema, Leg Pain (Right leg) Neurological: Alert, Oriented, CN II-XII Intact, Normal Cognition, Normal Gait, Normal Reflexes, No Motor/Sensory Deficits Psychiatric: Normal Affect, Normal Mood Skin Exam: Warm, Dry, Intact, Normal Color, No Rash Lymphatic: No Adenopathy Course - Vital Signs Last Recorded V/S: Last Vital Signs Temp 98.8 F 10/13/18 13:00 Pulse 85 10/13/18 13:46 Resp 20 10/13/18 13:00 BP 148/73 H 10/13/18 13:46 Pulse Ox 99 10/13/18 13:46 - Orders/Labs/Meds Orders: Active Orders 24 hr Category Date Time Status Communication Order [RC] ASDIRECTED Care 10/13/18 13:59 Active Chest 1V Frontal [CR] Stat Exams 10/13/18 14:36 Taken Femur Min 2V Rt [CR] Stat Exams 10/13/18 14:00 Taken Tibia Fibula Rt [CR] Stat Exams 10/13/18 13:53 Taken CULTURE BLOOD [BC] Stat Lab 10/13/18 14:58 Received CULTURE BLOOD [BC] Stat Lab 10/13/18 15:04 Received CULTURE URINE [RM] Stat Lab 10/13/18 15:32 Ordered Blood Culture x2 Reflex Set [OM.PC] Stat Oth 10/13/18 14:35 Ordered Labs: Laboratory Tests 10/13/18 10/13/18 10/13/18 Range/Units 13:57 14:05 14:05 WBC 16.4 H (4.0-10.2) K/uL RBC 2.73 L (4.33-5.41) M/uL Hgb 10.1 L (13.1-16.8) g/dL Hct 31.3 L (39.0-49.0) % MCV 114.7 H D (84.0-98.0) fL MCH 37.0 H (28.2-33.3) pg MCHC 32.3 (31.7-36.0) g/dL RDW 15.9 H (11.2-14.1) % Plt Count 165 (150-350) K/uL Neut % (Auto) 77.9 (45.0-80.0) % Lymph % (Auto) 11.3 (10.0-50.0) % Logan % (Auto) 10.3 (2.0-14.0) % Eos % (Auto) 0.2 (0.0-5.0) % Baso % (Auto) 0.3 (0.0-2.0) % Neut # (Auto) 12.76 H (1.40-7.00) K/uL Lymph # (Auto) 1.86 (0.50-3.50) K/uL Logan # (Auto) 1.69 H (0.00-1.00) K/uL Eos # (Auto) 0.04 (0.00-0.50) K/uL Baso # (Auto) 0.05 (0.00-0.20) K/uL Sodium 138 (136-145) mmol/L Potassium 4.4 (3.5-5.1) mmol/L Chloride 99 (98-107) mmol/L Carbon Dioxide 30.2 (21.0-32.0) mmol/L BUN 20 H (7-18) mg/dL Creatinine 1.06 (0.51-1.17) mg/dL Est Cr Clr Drug Dosing 59.20 mL/min Estimated GFR (MDRD) > 60 mL/min Glucose 255 H (74-106) mg/dL Calcium 8.8 (8.5-10.1) mg/dL NT-Pro-B Natriuret Pep (0-125) pg/mL Specimen Type Urinvoid Urine Color Yellow Urine Appearance Clear Urine pH 7.0 (5.0-9.0) Ur Specific [place] 1.010 (1.005-1.030) Urine Protein Negative (NEGATIVE) mg/dL Urine Glucose (UA) Negative (NEGATIVE) mg/dL Urine Ketones Negative (NEGATIVE) mg/dL Urine Occult Blood Trace-intact H (NEGATIVE) Urine Nitrite Negative (NEGATIVE) Urine Bilirubin Negative (NEGATIVE) Urine Urobilinogen 0.2 (0.2-1.0) E.U./dL Ur Leukocyte Esterase Trace H (NEGATIVE) Urine RBC 0-5 /HPF Urine WBC 0-5 /HPF Ur Epithelial Cells Occasional /LPF Urine Bacteria Few (NONE TO FEW) /HPF Urinalysis Comment 10/13/18 Range/Units 14:10 WBC (4.0-10.2) K/uL RBC (4.33-5.41) M/uL Hgb (13.1-16.8) g/dL Hct (39.0-49.0) % MCV (84.0-98.0) fL MCH (28.2-33.3) pg MCHC (31.7-36.0) g/dL RDW (11.2-14.1) % Plt Count (150-350) K/uL Neut % (Auto) (45.0-80.0) % Lymph % (Auto) (10.0-50.0) % Logan % (Auto) (2.0-14.0) % Eos % (Auto) (0.0-5.0) % Baso % (Auto) (0.0-2.0) % Neut # (Auto) (1.40-7.00) K/uL Lymph # (Auto) (0.50-3.50) K/uL Logan # (Auto) (0.00-1.00) K/uL Eos # (Auto) (0.00-0.50) K/uL Baso # (Auto) (0.00-0.20) K/uL Sodium (136-145) mmol/L Potassium (3.5-5.1) mmol/L Chloride (98-107) mmol/L Carbon Dioxide (21.0-32.0) mmol/L BUN (7-18) mg/dL Creatinine (0.51-1.17) mg/dL Est Cr Clr Drug Dosing mL/min Estimated GFR (MDRD) mL/min Glucose (74-106) mg/dL Calcium (8.5-10.1) mg/dL NT-Pro-B Natriuret Pep 288 H (0-125) pg/mL Specimen Type Urine Color Urine Appearance Urine pH (5.0-9.0) Ur Specific [place] (1.005-1.030) Urine Protein (NEGATIVE) mg/dL Urine Glucose (UA) (NEGATIVE) mg/dL Urine Ketones (NEGATIVE) mg/dL Urine Occult Blood (NEGATIVE) Urine Nitrite (NEGATIVE) Urine Bilirubin (NEGATIVE) Urine Urobilinogen (0.2-1.0) E.U./dL Ur Leukocyte Esterase (NEGATIVE) Urine RBC /HPF Urine WBC /HPF Ur Epithelial Cells /LPF Urine Bacteria (NONE TO FEW) /HPF Urinalysis Comment Departure - Departure Time of Disposition: 15:38 Disposition: Home, Self-Care 01 Condition: Fair Clinical Impression: Contusion of right leg - Discharge Information Referrals: Astrid Damon NP [Primary Care Provider] - Forms: ED Department Discharge Care Plan Goals: Patient able to ambulate with walker and assistance a 1 will send home at this time he could take Motrin or Aleve 2 tablets every 6 hours for pain. Resume all his medications as before - My Orders Last 24 Hours: My Active Orders 10/13/18 13:53 Tibia Fibula Rt [CR] Stat 10/13/18 13:59 Communication Order [RC] ASDIRECTED 10/13/18 14:00 Femur Min 2V Rt [CR] Stat 10/13/18 14:35 Blood Culture x2 Reflex Set [OM.PC] Stat 10/13/18 14:36 Chest 1V Frontal [CR] Stat 10/13/18 14:58 CULTURE BLOOD [BC] Stat 10/13/18 15:04 CULTURE BLOOD [BC] Stat 10/13/18 15:32 CULTURE URINE [RM] Stat - Assessment/Plan Last 24 Hours: My Active Orders 10/13/18 13:53 Tibia Fibula Rt [CR] Stat 10/13/18 13:59 Communication Order [RC] ASDIRECTED 10/13/18 14:00 Femur Min 2V Rt [CR] Stat 10/13/18 14:35 Blood Culture x2 Reflex Set [OM.PC] Stat 10/13/18 14:36 Chest 1V Frontal [CR] Stat 10/13/18 14:58 CULTURE BLOOD [BC] Stat 10/13/18 15:04 CULTURE BLOOD [BC] Stat 10/13/18 15:32 CULTURE URINE [RM] Stat
[2018-10-13 14:23] LABS: CHLORIDE,CL 99 mmol/L (98-107); SODIUM,NA 138 mmol/L (136-145)
== END 2018-10-13 16:50 | disposition home or self-care (01) ==
LOC: LL.ED 13:00
DX: S80.11XA Contusion of right lower leg, initial encounter (principal); I13.0 Hypertensive heart and chronic kidney disease with heart failure and stage 1 through stage 4 chronic kidney disease, or unspecified chronic kidney disease; I50.9 Heart failure, unspecified; N18.9 Chronic kidney disease, unspecified; E11.22 Type 2 diabetes mellitus with diabetic chronic kidney disease; J44.9 Chronic obstructive pulmonary disease, unspecified; E11.40 Type 2 diabetes mellitus with diabetic neuropathy, unspecified; Z88.8 Allergy status to other drugs, medicaments and biological substances; Z99.81 Dependence on supplemental oxygen; Z79.4 Long term (current) use of insulin; W18.30XA Fall on same level, unspecified, initial encounter
CPT/HCPCS: 36415; 51702; 71045; 73590-RT; 80048; 81001; 83880; 85025; 87040; 87086; 87088; 87186; 99283-25

== ENCOUNTER 2018-10-14 10:50 | Inpatient (IN) | payer MEDICARE, BC ==
[2018-10-14 11:41] LABS: CHLORIDE,CL 101 mmol/L (98-107); SODIUM,NA 141 mmol/L (136-145)
--- NOTE | 2018-10-14 12:16 | EDM.PDOC ---
ED HPI GENERAL MEDICAL PROBLEM - General Chief Complaint: Lower Extremity Injury/Pain Stated Complaint: right leg weakness generalized weakness Time Seen by Provider: 10/14/18 11:00 Source of Information: Reports: Patient, Family History Limitations: Reports: No Limitations - History of Present Illness INITIAL COMMENTS - FREE TEXT/NARRATIVE: Patient is a 78-year-old who was brought in by paramedics from home secondary to right leg pain and weakness patient has been sick for about 3 days now was seen in the ER yesterday with 2 day history right leg pain with secondary to an old previous trauma this morning patient was unable to get up from bed because of weakness and leg pain. Ambulance went and picked up patient and brought him in for evaluation and treatment. Onset: Gradual Duration: Day(s): (3 days), Getting Worse Location: Reports: Lower Extremity, Right Quality: Reports: Ache, Sharp, Other (Pain worse when moving better at rest) Severity: Moderate Improves with: Reports: None Worsens with: Reports: Movement Context: Reports: Other (Infection) Associated Symptoms: Reports: No Other Symptoms Right Lower Leg Pain Score (Numeric/FACES): 9 - Related Data Allergies Allergy/AdvReac Type Severity Reaction Status Date / Time celecoxib Allergy Cannot Verified 10/14/18 11:02 Remember diltiazem Allergy Cannot Verified 10/14/18 11:02 Remember [id number] Reductase Allergy Muscle Verified 10/14/18 11:02 Inhibitor Aches tiotropium bromide Allergy URINARY Verified 10/14/18 11:02 [From [facility] with RETENTION [facility]] Home Meds: Home Meds Arformoterol [Brovana] 2 ml INH BID 05/04/14 [History] Budesonide [Pulmicort] 2 ml INH BID 05/04/14 [History] Furosemide 40 mg PO DAILY 05/04/14 [History] Gabapentin [Neurontin] 300 mg PO TID 05/04/14 [History] Multivitamin [Multivitamins] 1 tab PO DAILY 05/04/14 [History] Omeprazole 20 mg PO BID 05/04/14 [History] Isosorbide Mononitrate [Imdur] 60 mg PO DAILY 10/26/16 [History] Allopurinol [Zyloprim] 300 mg PO QAM 06/13/17 [History] Cholecalciferol (Vitamin D3) [Vitamin D3] 1,000 unit PO DAILY 06/13/17 [History] Docusate Sodium [Colace] 100 mg PO BID 12/28/17 [History] Cyanocobalamin (Vitamin B-12) [Vitamin B-12] 1,000 mcg SL DAILY #100 tab.subl [Rx] Acetaminophen [Tylenol] 650 mg PO Q4H PRN 05/13/18 [History] Albuterol/Ipratropium [DuoNeb 3.0-0.5 MG/3 ML] 3 ml NEB TID 05/13/18 [History] Carvedilol 3 tab PO BIDMEALS 05/13/18 [History] Magnesium Oxide [Magnesium] 400 mg PO BID 05/13/18 [History] Tamsulosin HCl [Flomax] 0.4 mg PO DAILY 06/13/18 [History] Ferrous Sulfate 325 mg PO BID tablet 06/19/18 [Rx] Insulin Detemir [Levemir Flextouch] 20 units SUBCUT BEDTIME #1 06/19/18 [Rx] Insulin Aspart [NovoLOG] 8 unit SQ TID@0800,1200,1800 09/03/18 [History] Polyvinyl Alcohol [LiquiTears 1.4% Ophth Soln] 1 ml EYEBOTH TID@0800,1200,2000 09/03/18 [History] predniSONE 20 mg PO WITHBREAKFAST 09/03/18 [History] Past Medical History HEENT History: Reports: Cataract, Hard of Hearing, Impaired Vision, Macular Degeneration, Other (See Below) Other HEENT History: Glasses, macular degeneration and diabetic retinopathy, 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 and chronic left- sided tinnitus secondary to Mnire's disease, patient has not used his hearing aides secondary to ineffectiveness Cardiovascular History: Reports: Aneurysm, Arrhythmia, CAD, Cardiomyopathy, Heart Failure, Heart Murmur, High Cholesterol, Hypertension, PVD, Other (See Below) Other Cardiovascular History: PVCs, bigeminy, complete right bundle branch block , PACs, cardiomegaly with diastolic dysfunction by echocardiogram, recurrent CHF , tricuspid valve insufficiency, infrarenal abdominal aortic aneurysm initially diagnosed in 2006, chronic lymphedema of the lower extremities Respiratory History: Reports: Bronchitis, Recurrent, COPD, Pneumonia, Recurrent , Pulmonary Fibrosis, Sleep Apnea, Other (See Below) Other Respiratory History: 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 pylori , umbilical hernia, benign hepatic cysts by CT scan on 05/26/98 Genitourinary History: Reports: Acute Renal Failure, BPH, Chronic Renal Insuffiency, Diabetic Nephropathy, Prostate Disorder, Renal Disease, Other (See Below) Other Genitourinary History: Acute renal failure with secondary hypotension secondary to NSAIDs use on 10/01/14, BPH with history of PSA elevation, end- stage renal disease-stage III, erectile dysfunction Musculoskeletal History: Reports: Arthritis, Back Pain, Chronic, Fracture, Gout , Neck Pain, Chronic, Osteoarthritis, Osteoporosis, Other (See Below) Other Musculoskeletal History: Spinal stenosis at L4-5 with disc prolapse, positive NENO however no known SLE, proximal left fibular fracture in September 2014 Neurological History: Reports: Neuropathy, Diabetic, Neuropathy, Peripheral Psychiatric History: Reports: None Endocrine/Metabolic History: Reports: Diabetes, Type II, IDDM, Osteoporosis Hematologic History: Reports: None 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/04 Dermatologic History: Reports: Venous Stasis Dermatitis - Infectious Disease History Infectious Disease History: Reports: Chicken Pox, Helicobacter Pylori, Mumps, Shingles - Past Surgical History Head Surgeries/Procedures: Reports: None HEENT Surgical History: Reports: Cataract Surgery, Laser Surgery, Oral Surgery, Tonsillectomy Other HEENT Surgeries/Procedures: Right cataract surgery on 05/23/03, left cataract surgery on 06/12/04, tonsillectomy at age 9, left eye YAG treatment, complete teeth extraction Cardiovascular Surgical History: Reports: None GI Surgical History: Reports: Colonoscopy, EGD Other GI Surgeries/Procedures: Last Colonoscopy and EGD on 09/25/09, small bowel series on 10/02/09 Male Surgical History: Reports: Prostatectomy, TURP-Transurethral Resection of Prostate Other Male Surgeries/Procedures: Suprapubic partial prostatectomy in September 2004 with no evidence of prostate cancer despite previous PSA elevation Neurological Surgical History: Reports: Lumbar Spine, Other (See Below) Other Neurological Surgeries/Procedures: Unknown type of back surgeries x2 in the lumbar region Musculoskeletal Surgical History: Reports: None Oncologic Surgical History: Reports: Other (See Below) Other Oncologic Surgeries/Procedures: Mohs procedure as above Dermatological Surgical History: Reports: Skin Biopsy - Past Imaging History Past Imaging History: Reports: Cardiac Echo, Carotid US, CAT Scan, DEXA Scan, Holter Monitor, MRI, PFT, Sleep Study, Stress Testing, Ultrasound, Venous Doppler, Other (See Below) Social & Family History - Family History HEENT: Reports: None Cardiac: Reports: CAD, Hypertension, PR, Other (See Below) Other Cardiac Family History: Maternal uncle with fatal PR at age 42, another maternal uncle with fatal PR at age 48, mother with hypertension, patient denies history of coronary artery disease in sister despite [place] records Respiratory: Reports: COPD, Sleep Apnea, Other (See Below) Other Respiratory Family Hisory: Brother with COPD and sleep apnea with history of tobacco use : Reports: None OBGYN: Reports: None Musculoskeletal: Reports: Arthritis, Osteoarthritis, Other (See Below) Other Musculoskeletal Family History: Brother with osteoarthritis Neurological: Reports: Cerebral Aneurysms, CVA, Neuropathy, Peripheral, Other ( See Below) Other Neurological Family History: Sister with fatal cerebral aneurysm at age 42 , maternal uncle with fatal hemorrhagic CVA at age 65 , patient denies CVA in brother despite [place] records, brother with peripheral neuropathy Psychiatric: Reports: None Endocrine/Metabolic: Reports: None Hematologic: Reports: None Immunologic: Reports: None Oncologic: Reports: Breast, Other (See Below) Other Oncologic Family History: Mother with unknown type of fatal cancer at age 65, sister with breast cancer in her 60s - Tobacco Use Smoking Status *Q: Never Smoker - Caffeine Use Caffeine Use: Reports: Coffee Caffeine Use Comment: 3-4 cups of coffee per day, 1 soda per week - Recreational Drug Use Recreational Drug Use: No - Living Situation & Occupation Living situation: Reports: Occupation: Retired Review of Systems - Review of Systems Review Of Systems: See Below Constitutional: Reports: Weakness Eyes: Reports: Other (Bilateral cataract removal) Ears: Reports: Other (Patient wears hearing aids losses right still has his left ) Nose: Reports: No Symptoms Respiratory: Reports: Shortness of Breath (With ambulation) Cardiovascular: Reports: No Symptoms GI/Abdominal: Reports: No Symptoms Genitourinary: Reports: Other (Indwelling Rodarte catheter` history of urinary retention patient had prostatectomy) Musculoskeletal: Reports: Foot Pain, Joint Pain (Right side) Skin: Reports: No Symptoms Neurological: Reports: No Symptoms Psychiatric: Reports: No Symptoms ED EXAM, GENERAL - Physical Exam Exam: See Below Exam Limited By: No Limitations General Appearance: Alert, Obese, Other (Weakness) Eye Exam: Bilateral Eye: Other (History of bilateral cataract removal) Ears: Hearing Loss Throat/Mouth: Normal Inspection, Normal Lips, Normal Teeth, Normal Gums, Normal Oropharynx, Normal Voice, No Airway Compromise Head: Atraumatic, Normocephalic Neck: Normal Inspection, Supple, Non-Tender, Full Range of Motion Respiratory/Chest: Lungs Clear, Decreased Breath Sounds Cardiovascular: Normal Peripheral Pulses, Regular Rate, Rhythm, No Edema, No Gallop, No JVD, No Murmur, No Rub GI/Abdominal: Normal Bowel Sounds, Soft, Non-Tender, No Organomegaly, No Distention, No Abnormal Bruit, No Mass (Male) Exam: Other (Rodarte catheter changed yesterday cultures obtained yesterday revealed gram-negative cassidy) Rectal (Males) Exam: Deferred Back Exam: Decreased Range of Motion, Other (History of lumbar surgery for stenosis) Extremities: Pedal Edema, Slow Capillary Refill, Leg Pain Neurological: Alert, Oriented, CN II-XII Intact, Normal Cognition Psychiatric: Normal Affect, Normal Mood Skin Exam: Warm, Dry, Intact, Normal Color, No Rash Lymphatic: No Adenopathy Course - Vital Signs Last Recorded V/S: Last Vital Signs Temp 97.8 F 10/16/18 15:40 Pulse 65 10/16/18 15:40 Resp 22 H 10/16/18 15:40 BP 147/75 H 10/16/18 15:40 Pulse Ox 100 10/16/18 15:40 - Orders/Labs/Meds Orders: Medication Orders Acetaminophen (Tylenol) 650 mg PO Q4H PRN PRN Reason: Pain Last Admin: 10/15/18 20:07 Dose: 650 mg Admin: 10/14/18 16:08 Dose: 650 mg Albuterol/Ipratropium (Duoneb 3.0-0.5 Mg/3 Ml) 3 ml NEB TIDRT [facility] Last Admin: 10/16/18 14:24 Dose: 3 ml Admin: 10/16/18 07:49 Dose: 3 ml Admin: 10/15/18 19:56 Dose: 3 ml Admin: 10/15/18 14:21 Dose: 3 ml Admin: 10/15/18 07:57 Dose: 3 ml Admin: 10/14/18 19:22 Dose: 3 ml Admin: 10/14/18 17:18 Dose: 3 ml Arformoterol Tartrate (Brovana) 15 mcg INH BIDRT [facility] Last Admin: 10/16/18 07:49 Dose: 15 mcg Admin: 10/15/18 20:07 Dose: 15 mcg Admin: 10/15/18 07:57 Dose: 15 mcg Admin: 10/14/18 19:23 Dose: 15 mcg Budesonide (Pulmicort) 0.5 mg INH BIDRT [facility] Last Admin: 10/16/18 07:50 Dose: 0.5 mg Admin: 10/15/18 20:07 Dose: 0.5 mg Admin: 10/15/18 07:57 Dose: 0.5 mg Admin: 10/14/18 19:23 Dose: 0.5 mg Calcium Carbonate/Glycine (Tums Extra Strength) 750 mg PO Q2HR PRN PRN Reason: Indigestion Last Admin: 10/14/18 21:35 Dose: 750 mg Carvedilol (Coreg) 9.375 mg PO BID [facility] Cholecalciferol (Vitamin D3) 1,000 units PO DAILY [facility] Last Admin: 10/16/18 07:50 Dose: 1,000 units Admin: 10/15/18 07:56 Dose: 1,000 units Cyanocobalamin (Vitamin B12) 1,000 mcg PO DAILY [facility] Last Admin: 10/16/18 07:50 Dose: 1,000 mcg Admin: 10/15/18 07:56 Dose: 1,000 mcg Docusate Sodium (Colace) 100 mg PO BID [facility] Last Admin: 10/16/18 07:51 Dose: 100 mg Admin: 10/15/18 18:00 Dose: 100 mg Admin: 10/15/18 07:56 Dose: 100 mg Admin: 10/14/18 17:22 Dose: 100 mg Gabapentin (Neurontin) 300 mg PO TID [facility] Last Admin: 10/16/18 11:59 Dose: 300 mg Admin: 10/16/18 07:50 Dose: 300 mg Admin: 10/15/18 17:58 Dose: 300 mg Admin: 10/15/18 11:36 Dose: 300 mg Admin: 10/15/18 07:56 Dose: 300 mg Admin: 10/14/18 21:28 Dose: 300 mg Meropenem 1 gm/ Sodium (Chloride) 100 mls @ 200 mls/hr IV Q8H [facility] Last Admin: 10/16/18 14:24 Dose: 200 mls/hr Admin: 10/16/18 05:12 Dose: 200 mls/hr Admin: 10/15/18 22:24 Dose: 200 mls/hr Admin: 10/15/18 14:21 Dose: 200 mls/hr Admin: 10/15/18 05:54 Dose: 200 mls/hr Admin: 10/14/18 22:17 Dose: 200 mls/hr Insulin Glargine (Lantus) 20 unit SUBCUT BEDTIME [facility] Insulin Human Lispro (Humalog) 8 unit SUBCUT TID [facility] Last Admin: 10/16/18 12:00 Dose: 8 units Isosorbide Mononitrate (Imdur) 60 mg PO DAILY [facility] Last Admin: 10/16/18 07:50 Dose: 60 mg Admin: 10/15/18 07:56 Dose: 60 mg Magnesium Oxide (Magnesium Oxide) 400 mg PO BID [facility] Last Admin: 10/16/18 07:50 Dose: 400 mg Admin: 10/15/18 18:00 Dose: 400 mg Admin: 10/15/18 07:56 Dose: 400 mg Methylprednisolone Sodium Succinate (Solu-Medrol) 60 mg IVPUSH DAILY [facility] Nystatin (Nystop) 0 gm TOP TID [facility] Last Admin: 10/16/18 12:00 Dose: 1 applic Omeprazole (Omeprazole) 20 mg PO BIDAC [facility] Last Admin: 10/16/18 07:51 Dose: 20 mg Admin: 10/15/18 17:59 Dose: 20 mg Admin: 10/15/18 07:56 Dose: 20 mg Sodium Chloride (Saline Flush) 10 ml FLUSH ASDIRECTED PRN PRN Reason: Keep Vein Open Last Admin: 10/16/18 13:25 Dose: 10 ml Admin: 10/15/18 13:41 Dose: 10 ml Admin: 10/15/18 07:58 Dose: 10 ml Admin: 10/14/18 17:22 Dose: 10 ml Sodium Chloride (Saline Flush) 10 ml FLUSH Q12HR [facility] Labs: Laboratory Tests 10/14/18 10/14/18 10/14/18 Range/Units 11:20 11:20 11:20 WBC 19.6 H (4.0-10.2) K/uL RBC 2.79 L (4.33-5.41) M/uL Hgb 10.2 L (13.1-16.8) g/dL Hct 32.0 L (39.0-49.0) % MCV 114.7 H (84.0-98.0) fL MCH 36.6 H (28.2-33.3) pg MCHC 31.9 (31.7-36.0) g/dL RDW 15.8 H (11.2-14.1) % Plt Count 171 (150-350) K/uL Neut % (Auto) 73.9 (45.0-80.0) % Lymph % (Auto) 12.5 (10.0-50.0) % Dundy % (Auto) 12.1 (2.0-14.0) % Eos % (Auto) 1.2 (0.0-5.0) % Baso % (Auto) 0.3 (0.0-2.0) % Neut # (Auto) 14.53 H (1.40-7.00) K/uL Lymph # (Auto) 2.45 (0.50-3.50) K/uL Dundy # (Auto) 2.37 H (0.00-1.00) K/uL Eos # (Auto) 0.23 (0.00-0.50) K/uL Baso # (Auto) 0.05 (0.00-0.20) K/uL PT 10.7 (9.5-12.0) SEC INR 1.0 APTT 30.8 (21.0-31.3) SEC D-Dimer, Quantitative (0-400) ng/mL Sodium 141 (136-145) mmol/L Potassium 4.1 (3.5-5.1) mmol/L Chloride 101 (98-107) mmol/L Carbon Dioxide 31.7 (21.0-32.0) mmol/L BUN 18 (7-18) mg/dL Creatinine 1.06 (0.51-1.17) mg/dL Est Cr Clr Drug Dosing 59.20 mL/min Estimated GFR (MDRD) > 60 mL/min Glucose 190 H (74-106) mg/dL Calcium 9.0 (8.5-10.1) mg/dL Total Bilirubin 0.8 (0.2-1.0) mg/dL AST 20 (15-37) U/L ALT 28 (12-78) U/L Alkaline Phosphatase 79 (46-116) IU/L Total Protein 6.4 (6.4-8.2) g/dL Albumin 2.6 L (3.4-5.0) g/dL 10/14/18 Range/Units 11:20 WBC (4.0-10.2) K/uL RBC (4.33-5.41) M/uL Hgb (13.1-16.8) g/dL Hct (39.0-49.0) % MCV (84.0-98.0) fL MCH (28.2-33.3) pg MCHC (31.7-36.0) g/dL RDW (11.2-14.1) % Plt Count (150-350) K/uL Neut % (Auto) (45.0-80.0) % Lymph % (Auto) (10.0-50.0) % Dundy % (Auto) (2.0-14.0) % Eos % (Auto) (0.0-5.0) % Baso % (Auto) (0.0-2.0) % Neut # (Auto) (1.40-7.00) K/uL Lymph # (Auto) (0.50-3.50) K/uL Dundy # (Auto) (0.00-1.00) K/uL Eos # (Auto) (0.00-0.50) K/uL Baso # (Auto) (0.00-0.20) K/uL PT (9.5-12.0) SEC INR APTT (21.0-31.3) SEC D-Dimer, Quantitative 1770 H (0-400) ng/mL Sodium (136-145) mmol/L Potassium (3.5-5.1) mmol/L Chloride (98-107) mmol/L Carbon Dioxide (21.0-32.0) mmol/L BUN (7-18) mg/dL Creatinine (0.51-1.17) mg/dL Est Cr Clr Drug Dosing mL/min Estimated GFR (MDRD) mL/min Glucose (74-106) mg/dL Calcium (8.5-10.1) mg/dL Total Bilirubin (0.2-1.0) mg/dL AST (15-37) U/L ALT (12-78) U/L Alkaline Phosphatase (46-116) IU/L Total Protein (6.4-8.2) g/dL Albumin (3.4-5.0) g/dL Meds: Medications Generic Name Dose Route Start Last Admin Trade Name Freq PRN Reason Stop Dose Admin Acetaminophen 650 mg 10/14/18 13:29 10/15/18 20:07 Tylenol PO 650 mg Q4H PRN Administration Pain Albuterol/Ipratropium 3 ml 10/14/18 16:00 10/16/18 14:24 Duoneb 3.0-0.5 Mg/3 Ml NEB 3 ml TIDRT [facility] Administration Arformoterol Tartrate 15 mcg 10/14/18 20:00 10/16/18 07:49 Brovana INH 15 mcg BIDRT [facility] Administration Budesonide 0.5 mg 10/14/18 20:00 10/16/18 07:50 Pulmicort INH 0.5 mg BIDRT [facility] Administration Calcium Carbonate/Glycine 750 mg 10/14/18 21:25 10/14/18 21:35 Tums Extra Strength PO 750 mg Q2HR PRN Administration Indigestion Carvedilol 9.375 mg 10/16/18 18:00 Coreg PO BID [facility] Cholecalciferol 1,000 units 10/15/18 08:00 10/16/18 07:50 Vitamin D3 PO 1,000 units DAILY [facility] Administration Cyanocobalamin 1,000 mcg 10/15/18 08:00 10/16/18 07:50 Vitamin B12 PO 1,000 mcg DAILY [facility] Administration Docusate Sodium 100 mg 10/14/18 18:00 10/16/18 07:51 Colace PO 100 mg BID [facility] Administration Gabapentin 300 mg 10/14/18 20:45 10/16/18 11:59 Neurontin PO 300 mg TID [facility] Administration Meropenem 1 gm/ Sodium 100 mls @ 200 mls/hr 10/14/18 22:00 10/16/18 14:24 Chloride IV 200 mls/hr Q8H [facility] Administration Insulin Glargine 20 unit 10/16/18 20:00 Lantus SUBCUT BEDTIME [facility] Insulin Human Lispro 8 unit 10/16/18 11:30 10/16/18 12:00 Humalog SUBCUT 8 units TID [facility] Administration Isosorbide Mononitrate 60 mg 10/15/18 08:00 10/16/18 07:50 Imdur PO 60 mg DAILY [facility] Administration Magnesium Oxide 400 mg 10/15/18 08:00 10/16/18 07:50 Magnesium Oxide PO 400 mg BID [facility] Administration Methylprednisolone Sodium Succinate 60 mg 10/17/18 08:00 Solu-Medrol IVPUSH DAILY [facility] Nystatin 0 gm 10/16/18 12:00 10/16/18 12:00 Nystop TOP 1 applic TID [facility] Administration Omeprazole 20 mg 10/15/18 07:30 10/16/18 07:51 Omeprazole PO 20 mg BIDAC [facility] Administration Sodium Chloride 10 ml 10/14/18 11:47 10/16/18 13:25 Saline Flush FLUSH 10 ml ASDIRECTED PRN Administration Keep Vein Open Sodium Chloride 10 ml 10/16/18 20:00 Saline Flush FLUSH Q12HR [facility] Discontinued Medications Generic Name Dose Route Start Last Admin Trade Name Freq PRN Reason Stop Dose Admin Allopurinol 300 mg 10/15/18 08:00 10/16/18 07:50 Zyloprim PO 300 mg DAILY [facility] Administration Carvedilol 9.375 mg 10/14/18 17:30 10/16/18 07:50 Coreg PO 9.375 mg BIDMEALS [facility] Administration Enoxaparin Sodium 40 mg 10/15/18 08:00 10/16/18 07:51 Lovenox SUBCUT 40 mg DAILY [facility] Administration Furosemide 40 mg 10/15/18 08:00 10/16/18 07:51 Lasix PO 40 mg DAILY [facility] Administration Meropenem 1 gm/ Sodium 100 mls @ 200 mls/hr 10/14/18 13:30 10/14/18 14:26 Chloride IV 200 mls/hr Q8H [facility] Administration Piperacillin Sod/Tazobactam 100 mls @ 200 mls/hr 10/14/18 13:30 10/14/18 15: 12 Sod 3.375 gm/ Sodium Chloride IV 200 mls/hr Q6H [facility] Administration Piperacillin Sod/Tazobactam 100 mls @ 200 mls/hr 10/14/18 19:00 10/16/18 13: 25 Sod 3.375 gm/ Sodium Chloride IV 200 mls/hr Q6H [facility] Administration Sodium Chloride 1,000 mls @ 100 mls/hr 10/15/18 19:45 10/16/18 07:42 Normal Saline IV 100 mls/hr ASDIRECTED [facility] Administration Ibuprofen 400 mg 10/14/18 17:31 10/14/18 17:48 Motrin PO 400 mg Q6H PRN Administration Fever Insulin Glargine 0 unit 10/14/18 20:38 10/15/18 20:09 Lantus SUBCUT 20 units BEDTIME [facility] Administration Insulin Human Lispro 0 unit 10/15/18 08:00 10/15/18 11:36 Humalog SUBCUT 8 unit TID [facility] Administration Insulin Human Lispro 20 unit 10/15/18 18:00 10/15/18 18:01 Humalog SUBCUT 10/15/18 18:01 20 units ONETIME ONE Administration Insulin Human Lispro 0 unit 10/16/18 08:00 10/16/18 07:47 Humalog SUBCUT 8 units TID [facility] Administration Insulin Human NPH 20 unit 10/16/18 15:30 10/16/18 15:35 Humulin N SQ 10/16/18 15:31 20 unit ONETIME ONE Administration Methylprednisolone Sodium Succinate 60 mg 10/14/18 21:00 10/16/18 13:14 Solu-Medrol IVPUSH Not Given Q6H [facility] Departure - Departure Time of Disposition: 12:13 Disposition: Admitted As Inpatient 64 Clinical Impression: Generalized weakness Urinary tract infection Qualifiers: Urinary tract infection type: catheter-associated UTI Indwelling urinary catheter type: indwelling urethral catheter Encounter type: initial encounter Qualified Code(s): T83.511A - Infection and inflammatory reaction due to indwelling urethral catheter, initial encounter - Discharge Information *PRESCRIPTION DRUG MONITORING PROGRAM REVIEWED*: Not Applicable *COPY OF PRESCRIPTION DRUG MONITORING REPORT IN PATIENT SG: Not Applicable - Problem List & Annotations (1) Urinary tract infection SNOMED Code(s): 12305511 Code(s): N39.0 - URINARY TRACT INFECTION, SITE NOT SPECIFIED Status: Acute Current Visit: Yes Annotation/Comment:: Patient will be admitted for IV antibiotic therapy Qualifiers: Urinary tract infection type: catheter-associated UTI Indwelling urinary catheter type: indwelling urethral catheter Encounter type: initial encounter Qualified Code(s): T83.511A - Infection and inflammatory reaction due to indwelling urethral catheter, initial encounter; N39.0 - Urinary tract infection , site not specified (2) Generalized weakness SNOMED Code(s): 66778948 Code(s): R53.1 - WEAKNESS Status: Acute Current Visit: Yes Annotation/ Comment:: Patient feeling 100% better getting stronger denies pain at rest minimal discomfort with ambulation (3) Right leg pain SNOMED Code(s): 038899271 Code(s): M79.604 - PAIN IN RIGHT LEG Status: Acute Current Visit: Yes - Problem List Review Problem List Initiated/Reviewed/Updated: Yes - Assessment/Plan Admission H&P: Please use this note as an admission H&P
[2018-10-14] MEDS ORDERED: Piperacillin/Tazobactam 3.375 GM in Sodium Chloride 0.9% 100 ML IV SCH (13:30)
[2018-10-14] MEDS ORDERED: Meropenem 1 GM in Sodium Chloride 0.9% 100 ML IV SCH (13:30)
[2018-10-14] MEDS: Acetaminophen 325 MG Tab PO PRN (16:08)
[2018-10-14] MEDS: Albuterol/Ipratropium 3.0-0.5 MG/3 ML Neb Soln NEB SCH ×2 (17:18→19:22)
[2018-10-14] MEDS: Carvedilol 3.125 MG Tab PO SCH (17:22)
[2018-10-14] MEDS: Docusate Sodium 100 MG Cap PO SCH (17:22)
[2018-10-14] MEDS: Sodium Chloride 0.9% 10 ML Syringe FLUSH PRN (17:22)
[2018-10-14] MEDS ORDERED: Ibuprofen 400 MG Tab PO PRN (17:31)
[2018-10-14] MEDS: Piperacillin/Tazobactam 3.375 GM in Sodium Chloride 0.9% 100 ML IV SCH (19:21)
[2018-10-14] MEDS: Budesonide 0.5 MG/2 ML Neb Susp INH SCH (19:23)
[2018-10-14] MEDS: Arformoterol 15 MCG/2 ML Neb Soln INH SCH (19:23)
[2018-10-14] MEDS ORDERED: Calcium Carbonate 750 MG Tab.Chew PO PRN (21:25)
[2018-10-14] MEDS: Insulin Glarg,Human.Rec.Analog 100 UNIT/ML ML SUBCUT SCH (21:28)
[2018-10-14] MEDS: methylPREDNISolone Sodium Succinate 125 MG/2 ML SDV IVPUSH SCH (21:28)
[2018-10-14] MEDS: Gabapentin 300 MG Cap PO SCH (21:28)
[2018-10-14] MEDS: Meropenem 1 GM in Sodium Chloride 0.9% 100 ML IV SCH (22:17)
[2018-10-15] MEDS: Piperacillin/Tazobactam 3.375 GM in Sodium Chloride 0.9% 100 ML IV SCH ×4 (01:10→19:51)
[2018-10-15] MEDS: methylPREDNISolone Sodium Succinate 125 MG/2 ML SDV IVPUSH SCH ×4 (04:12→21:00)
[2018-10-15] MEDS: Meropenem 1 GM in Sodium Chloride 0.9% 100 ML IV SCH ×3 (05:54→22:24)
[2018-10-15] MEDS: Carvedilol 3.125 MG Tab PO SCH ×2 (07:55→17:59)
[2018-10-15] MEDS: Omeprazole 20 MG Cap.CR PO SCH ×2 (07:56→17:59)
[2018-10-15] MEDS: Isosorbide Mononitrate 60 MG Tab.ER PO SCH (07:56)
[2018-10-15] MEDS: Allopurinol 100 MG Tab PO SCH (07:56)
[2018-10-15] MEDS: Cyanocobalamin (Vitamin B12) 1,000 MCG Tab PO SCH (07:56)
[2018-10-15] MEDS: Cholecalciferol (Vitamin D3) 1,000 Unit Tab PO SCH (07:56)
[2018-10-15] MEDS: Gabapentin 300 MG Cap PO SCH ×3 (07:56→17:58)
[2018-10-15] MEDS: Docusate Sodium 100 MG Cap PO SCH ×2 (07:56→18:00)
[2018-10-15] MEDS: Magnesium Oxide 400 MG Tab PO SCH ×2 (07:56→18:00)
[2018-10-15] MEDS: Albuterol/Ipratropium 3.0-0.5 MG/3 ML Neb Soln NEB SCH ×3 (07:57→19:56)
[2018-10-15] MEDS: Furosemide 40 MG Tab PO SCH (07:57)
[2018-10-15] MEDS: Budesonide 0.5 MG/2 ML Neb Susp INH SCH ×2 (07:57→20:07)
[2018-10-15] MEDS: Arformoterol 15 MCG/2 ML Neb Soln INH SCH ×2 (07:57→20:07)
[2018-10-15] MEDS: Enoxaparin 40 MG/0.4 ML Syringe SUBCUT SCH (07:57)
[2018-10-15] MEDS: Insulin Lispro 100 Units/ML 3 ML Vial SUBCUT SCH ×2 (07:57→11:36)
[2018-10-15] MEDS: Sodium Chloride 0.9% 10 ML Syringe FLUSH PRN ×2 (07:58→13:41)
--- NOTE | 2018-10-15 11:24 | PCM.PN ---
- General Info Date of Service: 10/15/18 Functional Status: Reports: Pain Controlled, Ambulating - Review of Systems General: Reports: Weakness HEENT: Reports: No Symptoms Pulmonary: Reports: Shortness of Breath Cardiovascular: Reports: No Symptoms Gastrointestinal: Reports: No Symptoms Genitourinary: Reports: No Symptoms, Other (Indwelling catheter) Musculoskeletal: Reports: No Symptoms Skin: Reports: Bruising Neurological: Reports: No Symptoms Psychiatric: Reports: No Symptoms - Patient Data Vitals - Most Recent: Last Vital Signs Temp 97.2 F 10/15/18 08:00 Pulse 72 10/15/18 08:00 Resp 18 10/15/18 08:00 BP 132/68 10/15/18 08:00 Pulse Ox 100 10/15/18 08:00 Weight - Most Recent: 284 lb I&O - Last 24 Hours: Intake & Output 10/14/18 10/15/18 10/15/18 22:59 06:59 14:59 Intake Total 700 300 870 Output Total 1150 200 Balance -450 100 870 Lab Results Last 24 Hours: Laboratory Results - last 24 hr 10/14/18 10/14/18 10/14/18 Range/Units 11:20 11:20 11:20 WBC 19.6 H (4.0-10.2) K/uL RBC 2.79 L (4.33-5.41) M/uL Hgb 10.2 L (13.1-16.8) g/dL Hct 32.0 L (39.0-49.0) % MCV 114.7 H (84.0-98.0) fL MCH 36.6 H (28.2-33.3) pg MCHC 31.9 (31.7-36.0) g/dL RDW 15.8 H (11.2-14.1) % Plt Count 171 (150-350) K/uL Neut % (Auto) 73.9 (45.0-80.0) % Lymph % (Auto) 12.5 (10.0-50.0) % Crook % (Auto) 12.1 (2.0-14.0) % Eos % (Auto) 1.2 (0.0-5.0) % Baso % (Auto) 0.3 (0.0-2.0) % Neut # (Auto) 14.53 H (1.40-7.00) K/uL Lymph # (Auto) 2.45 (0.50-3.50) K/uL [place] # (Auto) 2.37 H (0.00-1.00) K/uL Eos # (Auto) 0.23 (0.00-0.50) K/uL Baso # (Auto) 0.05 (0.00-0.20) K/uL PT 10.7 (9.5-12.0) SEC INR 1.0 APTT 30.8 (21.0-31.3) SEC D-Dimer, Quantitative (0-400) ng/mL Sodium 141 (136-145) mmol/L Potassium 4.1 (3.5-5.1) mmol/L Chloride 101 (98-107) mmol/L Carbon Dioxide 31.7 (21.0-32.0) mmol/L BUN 18 (7-18) mg/dL Creatinine 1.06 (0.51-1.17) mg/dL Est Cr Clr Drug Dosing 59.20 mL/min Estimated GFR (MDRD) > 60 mL/min Glucose 190 H (74-106) mg/dL POC Glucose (65-110) mg/dl Calcium 9.0 (8.5-10.1) mg/dL Total Bilirubin 0.8 (0.2-1.0) mg/dL AST 20 (15-37) U/L ALT 28 (12-78) U/L Alkaline Phosphatase 79 (46-116) IU/L Total Protein 6.4 (6.4-8.2) g/dL Albumin 2.6 L (3.4-5.0) g/dL 10/14/18 10/14/18 10/15/18 Range/Units 11:20 17:13 07:09 WBC (4.0-10.2) K/uL RBC (4.33-5.41) M/uL Hgb (13.1-16.8) g/dL Hct (39.0-49.0) % MCV (84.0-98.0) fL MCH (28.2-33.3) pg MCHC (31.7-36.0) g/dL RDW (11.2-14.1) % Plt Count (150-350) K/uL Neut % (Auto) (45.0-80.0) % Lymph % (Auto) (10.0-50.0) % [place] % (Auto) (2.0-14.0) % Eos % (Auto) (0.0-5.0) % Baso % (Auto) (0.0-2.0) % Neut # (Auto) (1.40-7.00) K/uL Lymph # (Auto) (0.50-3.50) K/uL [place] # (Auto) (0.00-1.00) K/uL Eos # (Auto) (0.00-0.50) K/uL Baso # (Auto) (0.00-0.20) K/uL PT (9.5-12.0) SEC INR APTT (21.0-31.3) SEC D-Dimer, Quantitative 1770 H (0-400) ng/mL Sodium 137 (136-145) mmol/L Potassium 4.4 (3.5-5.1) mmol/L Chloride 99 (98-107) mmol/L Carbon Dioxide 27.4 (21.0-32.0) mmol/L BUN 25 H (7-18) mg/dL Creatinine 1.57 H (0.51-1.17) mg/dL Est Cr Clr Drug Dosing 39.97 mL/min Estimated GFR (MDRD) 43 mL/min Glucose 285 H (74-106) mg/dL POC Glucose 265 H* (65-110) mg/dl Calcium 8.8 (8.5-10.1) mg/dL Total Bilirubin 0.7 (0.2-1.0) mg/dL AST 25 (15-37) U/L ALT 31 (12-78) U/L Alkaline Phosphatase 92 (46-116) IU/L Total Protein 6.4 (6.4-8.2) g/dL Albumin 2.2 L (3.4-5.0) g/dL 10/15/18 10/15/18 Range/Units 07:09 07:34 WBC 27.1 H (4.0-10.2) K/uL RBC 2.76 L (4.33-5.41) M/uL Hgb 10.2 L (13.1-16.8) g/dL Hct 31.6 L (39.0-49.0) % MCV 114.5 H (84.0-98.0) fL MCH 37.0 H (28.2-33.3) pg MCHC 32.3 (31.7-36.0) g/dL RDW 15.9 H (11.2-14.1) % Plt Count 51 L D (150-350) K/uL Neut % (Auto) 95.3 H (45.0-80.0) % Lymph % (Auto) 2.3 L (10.0-50.0) % [place] % (Auto) 2.3 (2.0-14.0) % Eos % (Auto) 0.0 (0.0-5.0) % Baso % (Auto) 0.1 (0.0-2.0) % Neut # (Auto) 25.79 H (1.40-7.00) K/uL Lymph # (Auto) 0.61 (0.50-3.50) K/uL [place] # (Auto) 0.61 (0.00-1.00) K/uL Eos # (Auto) 0.00 (0.00-0.50) K/uL Baso # (Auto) 0.04 (0.00-0.20) K/uL PT (9.5-12.0) SEC INR APTT (21.0-31.3) SEC D-Dimer, Quantitative (0-400) ng/mL Sodium (136-145) mmol/L Potassium (3.5-5.1) mmol/L Chloride (98-107) mmol/L Carbon Dioxide (21.0-32.0) mmol/L BUN (7-18) mg/dL Creatinine (0.51-1.17) mg/dL Est Cr Clr Drug Dosing mL/min Estimated GFR (MDRD) mL/min Glucose (74-106) mg/dL POC Glucose 307 H* (65-110) mg/dl Calcium (8.5-10.1) mg/dL Total Bilirubin (0.2-1.0) mg/dL AST (15-37) U/L ALT (12-78) U/L Alkaline Phosphatase (46-116) IU/L Total Protein (6.4-8.2) g/dL Albumin (3.4-5.0) g/dL Med Orders - Current: Current Medications Acetaminophen (Tylenol) 650 mg PO Q4H PRN PRN Reason: Pain Last Admin: 10/14/18 16:08 Dose: 650 mg Albuterol/Ipratropium (Duoneb 3.0-0.5 Mg/3 Ml) 3 ml NEB TIDRT [facility] Last Admin: 10/15/18 07:57 Dose: 3 ml Allopurinol (Zyloprim) 300 mg PO DAILY [facility] Last Admin: 10/15/18 07:56 Dose: 300 mg Arformoterol Tartrate (Brovana) 15 mcg INH BIDRT [facility] Last Admin: 10/15/18 07:57 Dose: 15 mcg Budesonide (Pulmicort) 0.5 mg INH BIDRT [facility] Last Admin: 10/15/18 07:57 Dose: 0.5 mg Calcium Carbonate/Glycine (Tums Extra Strength) 750 mg PO Q2HR PRN PRN Reason: Indigestion Last Admin: 10/14/18 21:35 Dose: 750 mg Carvedilol (Coreg) 9.375 mg PO BIDMEALS [facility] Last Admin: 10/15/18 07:55 Dose: 9.375 mg Cholecalciferol (Vitamin D3) 1,000 units PO DAILY [facility] Last Admin: 10/15/18 07:56 Dose: 1,000 units Cyanocobalamin (Vitamin B12) 1,000 mcg PO DAILY [facility] Last Admin: 10/15/18 07:56 Dose: 1,000 mcg Docusate Sodium (Colace) 100 mg PO BID [facility] Last Admin: 10/15/18 07:56 Dose: 100 mg Enoxaparin Sodium (Lovenox) 40 mg SUBCUT DAILY [facility] Last Admin: 10/15/18 07:57 Dose: 40 mg Furosemide (Lasix) 40 mg PO DAILY [facility] Last Admin: 10/15/18 07:57 Dose: 40 mg Gabapentin (Neurontin) 300 mg PO TID [facility] Last Admin: 10/15/18 07:56 Dose: 300 mg Meropenem 1 gm/ Sodium (Chloride) 100 mls @ 200 mls/hr IV Q8H [facility] Last Admin: 10/15/18 05:54 Dose: 200 mls/hr Piperacillin Sod/Tazobactam (Sod 3.375 gm/ Sodium Chloride) 100 mls @ 200 mls/ hr IV Q6H [facility] Last Admin: 10/15/18 07:52 Dose: 200 mls/hr Ibuprofen (Motrin) 400 mg PO Q6H PRN PRN Reason: Fever Last Admin: 10/14/18 17:48 Dose: 400 mg Insulin Glargine (Lantus) 0 unit SUBCUT BEDTIME [facility] Last Admin: 10/14/18 21:28 Dose: 20 units Insulin Human Lispro (Humalog) 0 unit SUBCUT TID [facility] Last Admin: 10/15/18 07:57 Dose: 8 unit Isosorbide Mononitrate (Imdur) 60 mg PO DAILY [facility] Last Admin: 10/15/18 07:56 Dose: 60 mg Magnesium Oxide (Magnesium Oxide) 400 mg PO BID [facility] Last Admin: 10/15/18 07:56 Dose: 400 mg Methylprednisolone Sodium Succinate (Solu-Medrol) 60 mg IVPUSH Q6H [facility] Last Admin: 10/15/18 08:43 Dose: 60 mg Omeprazole (Omeprazole) 20 mg PO BIDAC [facility] Last Admin: 10/15/18 07:56 Dose: 20 mg Sodium Chloride (Saline Flush) 10 ml FLUSH ASDIRECTED PRN PRN Reason: Keep Vein Open Last Admin: 10/15/18 07:58 Dose: 10 ml Discontinued Medications Meropenem 1 gm/ Sodium (Chloride) 100 mls @ 200 mls/hr IV Q8H [facility] Last Admin: 10/14/18 14:26 Dose: 200 mls/hr Piperacillin Sod/Tazobactam (Sod 3.375 gm/ Sodium Chloride) 100 mls @ 200 mls/ hr IV Q6H [facility] Last Admin: 10/14/18 15:12 Dose: 200 mls/hr Comments:: Patient seen today feels 100% better denies pain on rest minimal discomfort on ambulating at this time I'm considering removing the [place] catheter if patient continues to improve. - Exam Quality Assessment: Supplemental Oxygen General: Alert, Oriented HEENT: Pupils Equal, Pupils Reactive, EOMI, Mucous Membr. Moist/[place] Neck: Supple Lungs: Clear to Auscultation, Decreased Breath Sounds Cardiovascular: Regular Rate, Regular Rhythm GI/Abdominal Exam: Normal Bowel Sounds, Soft, Non-Tender, No Organomegaly, No Distention, No Abnormal Bruit, No Mass, Pelvis Stable (Male) Exam: No Hernia, Normal Inspection, Normal Prostate, Circumcised Back Exam: Normal Inspection, Full Range of Motion Extremities: Pedal Edema, Joint Swelling, Limited Range of Motion Skin: Warm, Dry, Intact Neurological: No New Focal Deficit Psy/Mental Status: Alert, Normal Affect, Normal Mood - Problem List & Annotations (1) Urinary tract infection SNOMED Code(s): 98666394 Code(s): N39.0 - URINARY TRACT INFECTION, SITE NOT SPECIFIED Status: Acute Current Visit: Yes Annotation/Comment:: Patient doing 100% better feeling stronger (2) Urinary tract infection SNOMED Code(s): 85076139 Code(s): N39.0 - URINARY TRACT INFECTION, SITE NOT SPECIFIED Status: Acute Current Visit: Yes Annotation/Comment:: Patient will be admitted for IV antibiotic therapy (3) Generalized weakness SNOMED Code(s): 95021945 Code(s): R53.1 - WEAKNESS Status: Acute Current Visit: Yes Annotation/ Comment:: Patient feeling 100% better getting stronger denies pain at rest minimal discomfort with ambulation - Problem List Review Problem List Initiated/Reviewed/Updated: Yes - My Orders Last 24 Hours: My Active Orders 10/14/18 11:19 Head wo Cont [CT] Stat 10/14/18 11:47 Sodium Chloride 0.9% [Saline Flush] 10 ml FLUSH ASDIRECTED PRN 10/14/18 11:48 Saline Lock Insert [OM.PC] Stat 10/14/18 13:12 Blood Glucose Check, Bedside [RC] BIDMEALS May Shower [RC] ASDIRECTED Up to Chair [RC] ASDIRECTED Urinary Catheter Assessment [RC] 08,20 Resuscitation Status Routine 10/14/18 13:14 Patient Status [ADT] Routine Oxygen Therapy [RC] 2300 VTE/DVT Education [RC] PER UNIT ROUTINE Vital Signs [RC] Q4HR 10/14/18 13:29 Acetaminophen [Tylenol] 650 mg PO Q4H PRN 10/14/18 16:00 Albuterol/Ipratropium [DuoNeb 3.0-0.5 MG/3 ML] 3 ml NEB TIDRT 10/14/18 17:30 Carvedilol [Coreg] 9.375 mg PO BIDMEALS 10/14/18 17:31 Ibuprofen [Motrin] 400 mg PO Q6H PRN 10/14/18 18:00 Docusate Sodium [Colace] 100 mg PO BID 10/14/18 19:00 Piperacillin/Tazobactam [Zosyn] 3.375 gm Sodium Chloride 0.9% [Normal Saline] 100 ml IV Q6H 10/14/18 20:00 Arformoterol [Brovana] 15 mcg INH BIDRT Budesonide [Pulmicort] 0.5 mg INH BIDRT 10/14/18 20:38 Insulin Glarg,Human.Rec.Analog [LantUS] 0 unit SUBCUT BEDTIME 10/14/18 20:45 Gabapentin [Neurontin] 300 mg PO TID 10/14/18 21:00 methylPREDNISolone Sod Succ [Solu-MEDROL] 60 mg IVPUSH Q6H 10/14/18 21:25 Calcium Carbonate [Tums Extra Strength] 750 mg PO Q2HR PRN 10/14/18 22:00 Meropenem [Merrem] 1 gm Sodium Chloride 0.9% [Normal Saline] 100 ml IV Q8H 10/14/18 Dinner [employer] Diet [DIET] 10/15/18 07:30 Omeprazole 20 mg PO BIDAC 10/15/18 08:00 Allopurinol [Zyloprim] 300 mg PO DAILY Cholecalciferol (Vitamin D3) [Vitamin D3] 1,000 units PO DAILY Cyanocobalamin (Vitamin B12) [Vitamin B12] 1,000 mcg PO DAILY Enoxaparin [Lovenox] 40 mg SUBCUT DAILY Furosemide [Lasix] 40 mg PO DAILY Insulin Lispro [HumaLOG] 0 unit SUBCUT TID Isosorbide Mononitrate [Imdur] 60 mg PO DAILY Magnesium Oxide 400 mg PO BID
[2018-10-15] MEDS ORDERED: Insulin Lispro 100 Units/ML 3 ML Vial SUBCUT ONE ×2 (17:50→18:00)
[2018-10-15] MEDS: Sodium Chloride 0.9% 1,000 ML IV SCH (19:52)
[2018-10-15] MEDS: Acetaminophen 325 MG Tab PO PRN (20:07)
[2018-10-15] MEDS: Insulin Glarg,Human.Rec.Analog 100 UNIT/ML ML SUBCUT SCH (20:09)
[2018-10-16] MEDS: Piperacillin/Tazobactam 3.375 GM in Sodium Chloride 0.9% 100 ML IV SCH ×3 (01:13→13:25)
[2018-10-16] MEDS: methylPREDNISolone Sodium Succinate 125 MG/2 ML SDV IVPUSH SCH ×2 (05:12→13:14)
[2018-10-16] MEDS: Meropenem 1 GM in Sodium Chloride 0.9% 100 ML IV SCH ×3 (05:12→21:38)
[2018-10-16] MEDS: Sodium Chloride 0.9% 1,000 ML IV SCH (07:42)
[2018-10-16] MEDS: Albuterol/Ipratropium 3.0-0.5 MG/3 ML Neb Soln NEB SCH ×3 (07:49→19:21)
[2018-10-16] MEDS: Arformoterol 15 MCG/2 ML Neb Soln INH SCH ×2 (07:49→19:21)
[2018-10-16] MEDS: Gabapentin 300 MG Cap PO SCH ×3 (07:50→17:54)
[2018-10-16] MEDS: Carvedilol 3.125 MG Tab PO SCH ×2 (07:50→17:53)
[2018-10-16] MEDS: Cholecalciferol (Vitamin D3) 1,000 Unit Tab PO SCH (07:50)
[2018-10-16] MEDS: Magnesium Oxide 400 MG Tab PO SCH ×2 (07:50→17:54)
[2018-10-16] MEDS: Cyanocobalamin (Vitamin B12) 1,000 MCG Tab PO SCH (07:50)
[2018-10-16] MEDS: Isosorbide Mononitrate 60 MG Tab.ER PO SCH (07:50)
[2018-10-16] MEDS: Budesonide 0.5 MG/2 ML Neb Susp INH SCH ×2 (07:50→19:21)
[2018-10-16] MEDS: Allopurinol 100 MG Tab PO SCH (07:50)
[2018-10-16] MEDS: Enoxaparin 40 MG/0.4 ML Syringe SUBCUT SCH (07:51)
[2018-10-16] MEDS: Furosemide 40 MG Tab PO SCH (07:51)
[2018-10-16] MEDS: Omeprazole 20 MG Cap.CR PO SCH ×2 (07:51→17:54)
[2018-10-16] MEDS: Docusate Sodium 100 MG Cap PO SCH ×2 (07:51→17:54)
[2018-10-16] MEDS ORDERED: Insulin Lispro 100 Units/ML 3 ML Vial SUBCUT SCH (08:00)
[2018-10-16] MEDS: Nystatin Topical Powder 15 GM Bottle TOP SCH ×2 (12:00→17:52)
[2018-10-16] MEDS: Insulin Lispro 100 Units/ML 3 ML Vial SUBCUT SCH ×2 (12:00→17:51)
[2018-10-16] MEDS: Sodium Chloride 0.9% 10 ML Syringe FLUSH PRN (13:25)
[2018-10-16] MEDS ORDERED: Insulin Isophane NPH, Human 100 Units/ML 3 ML Vial SQ ONE (15:30)
[2018-10-16] MEDS: Insulin Glarg,Human.Rec.Analog 100 UNIT/ML ML SUBCUT SCH (19:21)
[2018-10-16] MEDS: Sodium Chloride 0.9% 10 ML Syringe FLUSH SCH (21:37)
--- NOTE | 2018-10-16 22:46 | PCM.PN ---
- General Info Date of Service: 10/16/18 Functional Status: Reports: Tolerating Diet - Review of Systems General: Reports: Weakness HEENT: Reports: No Symptoms Pulmonary: Reports: No Symptoms Cardiovascular: Reports: No Symptoms Gastrointestinal: Reports: Decreased Appetite Genitourinary: Reports: Retention (butler catheter) Musculoskeletal: Reports: Leg Pain (right improving) Skin: Reports: No Symptoms Neurological: Reports: Confusion (improving), Difficulty Walking, Weakness Psychiatric: Reports: Confusion - Patient Data Vitals - Most Recent: Last Vital Signs Temp 98.9 F 10/16/18 20:00 Pulse 78 10/16/18 20:00 Resp 18 10/16/18 20:00 BP 134/66 10/16/18 20:00 Pulse Ox 98 10/16/18 20:00 Weight - Most Recent: 283 lb 15.992 oz I&O - Last 24 Hours: Intake & Output 10/16/18 10/16/18 10/16/18 06:59 14:59 22:59 Intake Total 775 1660 1130 Output Total 397 597 3035 Balance 275 1060 -870 Lab Results Last 24 Hours: Laboratory Results - last 24 hr 10/16/18 10/16/18 10/16/18 Range/Units 07:20 09:50 11:33 POC Glucose 388 H* 324 H* (65-110) mg/dl C-Reactive Protein 22.4 H (<=0.9) mg/dL 10/16/18 10/16/18 Range/Units 15:35 17:04 POC Glucose 404 H* 373 H* (65-110) mg/dl C-Reactive Protein (<=0.9) mg/dL Med Orders - Current: Current Medications Acetaminophen (Tylenol) 650 mg PO Q4H PRN PRN Reason: Pain Last Admin: 10/15/18 20:07 Dose: 650 mg Albuterol/Ipratropium (Duoneb 3.0-0.5 Mg/3 Ml) 3 ml NEB TIDRT [facility] Last Admin: 10/16/18 19:21 Dose: 3 ml Arformoterol Tartrate (Brovana) 15 mcg INH BIDRT [facility] Last Admin: 10/16/18 19:21 Dose: 15 mcg Budesonide (Pulmicort) 0.5 mg INH BIDRT [facility] Last Admin: 10/16/18 19:21 Dose: 0.5 mg Calcium Carbonate/Glycine (Tums Extra Strength) 750 mg PO Q2HR PRN PRN Reason: Indigestion Last Admin: 10/14/18 21:35 Dose: 750 mg Carvedilol (Coreg) 9.375 mg PO BID [facility] Last Admin: 10/16/18 17:53 Dose: 9.375 mg Cholecalciferol (Vitamin D3) 1,000 units PO DAILY [facility] Last Admin: 10/16/18 07:50 Dose: 1,000 units Cyanocobalamin (Vitamin B12) 1,000 mcg PO DAILY [facility] Last Admin: 10/16/18 07:50 Dose: 1,000 mcg Docusate Sodium (Colace) 100 mg PO BID [facility] Last Admin: 10/16/18 17:54 Dose: 100 mg Gabapentin (Neurontin) 300 mg PO TID [facility] Last Admin: 10/16/18 17:54 Dose: 300 mg Levofloxacin/Dextrose 500 mg/ (Premix) 100 mls @ 100 mls/hr IV ONETIME ONE Stop: 10/17/18 08:59 Levofloxacin/Dextrose 250 mg/ (Premix) 50 mls @ 50 mls/hr IV Q24H [facility] Insulin Glargine (Lantus) 20 unit SUBCUT BEDTIME [facility] Last Admin: 10/16/18 19:21 Dose: 20 units Insulin Human Lispro (Humalog) 8 unit SUBCUT TID [facility] Last Admin: 10/16/18 17:51 Dose: 8 units Isosorbide Mononitrate (Imdur) 60 mg PO DAILY [facility] Last Admin: 10/16/18 07:50 Dose: 60 mg Magnesium Oxide (Magnesium Oxide) 400 mg PO BID [facility] Last Admin: 10/16/18 17:54 Dose: 400 mg Methylprednisolone Sodium Succinate (Solu-Medrol) 60 mg IVPUSH DAILY [facility] Nystatin (Nystop) 0 gm TOP TID [facility] Last Admin: 10/16/18 17:52 Dose: 1 applic Omeprazole (Omeprazole) 20 mg PO BIDAC [facility] Last Admin: 10/16/18 17:54 Dose: 20 mg Sodium Chloride (Saline Flush) 10 ml FLUSH ASDIRECTED PRN PRN Reason: Keep Vein Open Last Admin: 10/16/18 13:25 Dose: 10 ml Sodium Chloride (Saline Flush) 10 ml FLUSH Q12HR [facility] Last Admin: 10/16/18 21:37 Dose: 10 ml Discontinued Medications Allopurinol (Zyloprim) 300 mg PO DAILY [facility] Last Admin: 10/16/18 07:50 Dose: 300 mg Carvedilol (Coreg) 9.375 mg PO BIDMEALS [facility] Last Admin: 10/16/18 07:50 Dose: 9.375 mg Enoxaparin Sodium (Lovenox) 40 mg SUBCUT DAILY [facility] Last Admin: 10/16/18 07:51 Dose: 40 mg Furosemide (Lasix) 40 mg PO DAILY [facility] Last Admin: 10/16/18 07:51 Dose: 40 mg Meropenem 1 gm/ Sodium (Chloride) 100 mls @ 200 mls/hr IV Q8H [facility] Last Admin: 10/14/18 14:26 Dose: 200 mls/hr Piperacillin Sod/Tazobactam (Sod 3.375 gm/ Sodium Chloride) 100 mls @ 200 mls/ hr IV Q6H [facility] Last Admin: 10/14/18 15:12 Dose: 200 mls/hr Meropenem 1 gm/ Sodium (Chloride) 100 mls @ 200 mls/hr IV Q8H [facility] Last Admin: 10/16/18 21:38 Dose: 200 mls/hr Piperacillin Sod/Tazobactam (Sod 3.375 gm/ Sodium Chloride) 100 mls @ 200 mls/ hr IV Q6H [facility] Last Admin: 10/16/18 13:25 Dose: 200 mls/hr Sodium Chloride (Normal Saline) 1,000 mls @ 100 mls/hr IV ASDIRECTED [facility] Last Admin: 10/16/18 07:42 Dose: 100 mls/hr Ibuprofen (Motrin) 400 mg PO Q6H PRN PRN Reason: Fever Last Admin: 10/14/18 17:48 Dose: 400 mg Insulin Glargine (Lantus) 0 unit SUBCUT BEDTIME [facility] Last Admin: 10/15/18 20:09 Dose: 20 units Insulin Human Lispro (Humalog) 0 unit SUBCUT TID [facility] Last Admin: 10/15/18 11:36 Dose: 8 unit Insulin Human Lispro (Humalog) 20 unit SUBCUT ONETIME ONE Stop: 10/15/18 18:01 Last Admin: 10/15/18 18:01 Dose: 20 units Insulin Human Lispro (Humalog) 0 unit SUBCUT TID [facility] Last Admin: 10/16/18 07:47 Dose: 8 units Insulin Human NPH (Humulin N) 20 unit SQ ONETIME ONE Stop: 10/16/18 15:31 Last Admin: 10/16/18 15:35 Dose: 20 unit Methylprednisolone Sodium Succinate (Solu-Medrol) 60 mg IVPUSH Q6H [facility] Last Admin: 10/16/18 13:14 Dose: Not Given - Exam Quality Assessment: Supplemental Oxygen, Central Line/PICC, Urine Catheter, DVT Prophylaxis (stopped due to increasing creatinine) General: No Acute Distress HEENT: Other (normocephalic) Neck: Trachea Midline, No JVD Lungs: Normal Respiratory Effort, Decreased Breath Sounds Cardiovascular: Regular Rate, Regular Rhythm GI/Abdominal Exam: Soft, Non-Tender, No Distention (Male) Exam: Other (butler catheter) Back Exam: Normal Inspection, Full Range of Motion Extremities: Non-Tender Skin: Warm, Dry, Intact Neurological: Other (weakness BLE) Psy/Mental Status: Normal Affect, Normal Mood - Problem List & Annotations (1) Generalized weakness SNOMED Code(s): 47957606 Code(s): R53.1 - WEAKNESS Status: Acute Current Visit: Yes Annotation/ Comment:: Patient feeling 100% better getting stronger denies pain at rest minimal discomfort with ambulation (2) Right leg pain SNOMED Code(s): 681633758 Code(s): M79.604 - PAIN IN RIGHT LEG Status: Acute Current Visit: Yes (3) Urinary tract infection SNOMED Code(s): 93949781 Code(s): N39.0 - URINARY TRACT INFECTION, SITE NOT SPECIFIED Status: Acute Current Visit: Yes Qualifiers: Urinary tract infection type: catheter-associated UTI Indwelling urinary catheter type: indwelling urethral catheter Encounter type: initial encounter Qualified Code(s): T83.511A - Infection and inflammatory reaction due to indwelling urethral catheter, initial encounter; N39.0 - Urinary tract infection , site not specified Annotation/Comment:: Patient doing 100% better feeling stronger 10/16/18 Urine C&S from ER results klebsiella. See sensitivities. Antibiotics changed. (4) Comfort measures only status SNOMED Code(s): 17844363003321 Code(s): Z51.5 - ENCOUNTER FOR PALLIATIVE CARE Status: Acute Priority: Medium Current Visit: No (5) Contusion of right leg SNOMED Code(s): 72268950 Code(s): S80.11XA - CONTUSION OF RIGHT LOWER LEG, INITIAL ENCOUNTER Status : Acute Current Visit: No (6) DNI (do not intubate) SNOMED Code(s): 042075247 Code(s): Z78.9 - OTHER SPECIFIED HEALTH STATUS Status: Acute Current Visit: No (7) DNR (do not resuscitate) Status: Acute Current Visit: No (8) Elevated sedimentation rate SNOMED Code(s): 053203088 Code(s): R70.0 - ELEVATED ERYTHROCYTE SEDIMENTATION RATE Status: Acute Priority: High Current Visit: No (9) Fever SNOMED Code(s): 388724798 Code(s): R50.9 - FEVER, UNSPECIFIED Status: Acute Current Visit: No Qualifiers: Fever type: unspecified Qualified Code(s): R50.9 - Fever, unspecified (10) Leukocytosis SNOMED Code(s): 365328939, 874357644 Code(s): D72.829 - ELEVATED WHITE BLOOD CELL COUNT, UNSPECIFIED Status: Acute Current Visit: No Qualifiers: Leukocytosis type: unspecified Qualified Code(s): D72.829 - Elevated white blood cell count, unspecified Annotation/Comment:: Possibly secondary to UTI/pneumonia (11) Urinary retention SNOMED Code(s): 924714015 Code(s): R33.9 - RETENTION OF URINE, UNSPECIFIED Status: Acute Current Visit: No (12) Anemia SNOMED Code(s): 206568366 Code(s): D64.9 - ANEMIA, UNSPECIFIED Status: Chronic Priority: Medium Current Visit: No Qualifiers: Anemia type: iron deficiency Annotation/Comment:: Both iron and vitamin B-12 deficiency verified during recent acute care hospitalization. Continue supplementation as per discharge orders with close follow-up by his regular provider. Note hemoglobin improved from 9.1 during recent acute care. Additional history of renal insufficiency and chronic diseases as contributing factors to his anemia. (13) COPD (chronic obstructive pulmonary disease) SNOMED Code(s): 07107413 Code(s): J44.9 - CHRONIC OBSTRUCTIVE PULMONARY DISEASE, UNSPECIFIED Status : Chronic Priority: High Current Visit: No Qualifiers: COPD type: COPD with acute lower respiratory infection Qualified Code(s): J44.0 - Chronic obstructive pulmonary disease with acute lower respiratory infection Annotation/Comment:: Patient will undergo IV antibiotics bronchodilators and steroids (14) Chronic GERD SNOMED Code(s): 942578831, 107912991 Code(s): K21.9 - GASTRO-ESOPHAGEAL REFLUX DISEASE WITHOUT ESOPHAGITIS Status: Chronic Priority: Medium Current Visit: No (15) Chronic kidney disease (CKD) SNOMED Code(s): 972415916 Code(s): N18.9 - CHRONIC KIDNEY DISEASE, UNSPECIFIED Status: Chronic Priority: High Current Visit: No Qualifiers: Chronic kidney disease stage: unspecified stage Qualified Code(s): N18.9 - Chronic kidney disease, unspecified Annotation/Comment:: History of diabetic nephropathy. Continue to observe closely. (16) Chronic respiratory failure with hypoxia SNOMED Code(s): 613041822 Code(s): J96.11 - CHRONIC RESPIRATORY FAILURE WITH HYPOXIA Status: Chronic Priority: High Current Visit: No (17) Coronary artery disease SNOMED Code(s): 47232515 Code(s): I25.10 - ATHSCL HEART DISEASE OF [place] CORONARY ARTERY W/O ANG PCTRS Status: Chronic Priority: Medium Current Visit: No Qualifiers: Coronary Disease-Associated Artery/Lesion type: [place] artery [place] vs. transplanted heart: [place] heart Associated angina: without angina Qualified Code(s): I25.10 - Atherosclerotic heart disease of [place] coronary artery without angina pectoris Annotation/Comment:: As above (18) Diabetes mellitus SNOMED Code(s): 82477843 Code(s): E11.9 - TYPE 2 DIABETES MELLITUS WITHOUT COMPLICATIONS Status: Chronic Priority: Medium Current Visit: No (19) Dyslipidemia SNOMED Code(s): 500077431 Code(s): E78.5 - HYPERLIPIDEMIA, UNSPECIFIED Status: Chronic Priority: Medium Current Visit: No (20) Gout SNOMED Code(s): 50206645 Code(s): M10.9 - GOUT, UNSPECIFIED Status: Chronic Priority: Low Current Visit: No Qualifiers: Gout site: unspecified site Gout etiology: due to renal impairment Chronicity: chronic Presence of tophus: without tophus Qualified Code(s): M1A.30X0 - Chronic gout due to renal impairment, unspecified site, without tophus (tophi) (21) HTN, Benign hypertension SNOMED Code(s): 57833997 Code(s): I10 - ESSENTIAL (PRIMARY) HYPERTENSION Status: Chronic Priority : Medium Current Visit: No (22) Hypoalbuminemia SNOMED Code(s): 336484509 Code(s): E88.09 - OTH DISORDERS OF PLASMA-PROTEIN METABOLISM, NEC Status: Chronic Priority: Medium Current Visit: No (23) Neuropathy SNOMED Code(s): 904679076 Code(s): G62.9 - POLYNEUROPATHY, UNSPECIFIED Status: Chronic Priority: Medium Current Visit: No (24) Obesity (BMI 30-39.9) SNOMED Code(s): 982205355, 350543861 Code(s): E66.9 - OBESITY, UNSPECIFIED Status: Chronic Priority: Medium Current Visit: No (25) Obstructive sleep apnea on CPAP SNOMED Code(s): 56826828 Code(s): G47.33 - OBSTRUCTIVE SLEEP APNEA (ADULT) (PEDIATRIC); Z99.89 - DEPENDENCE ON OTHER ENABLING MACHINES AND DEVICES Status: Chronic Priority: Low Current Visit: No Annotation/Comment:: using CPAP machinge at night, will continue (26) Osteoarthritis SNOMED Code(s): 380528155 Code(s): M19.90 - UNSPECIFIED OSTEOARTHRITIS, UNSPECIFIED SITE Status: Chronic Priority: Medium Current Visit: No (27) Oxygen dependent SNOMED Code(s): 097198535475 Code(s): Z99.81 - DEPENDENCE ON SUPPLEMENTAL OXYGEN Status: Chronic Priority: High Current Visit: No - Problem List Review Problem List Initiated/Reviewed/Updated: Yes - My Orders Last 24 Hours: My Active Orders 10/16/18 18:00 Carvedilol [Coreg] 9.375 mg PO BID 10/17/18 05:11 LACTIC ACID [CHEM] Routine SEDIMENTATION RATE AUTO [HEME] Routine URIC ACID [CHEM] Routine 10/17/18 08:00 Levofloxacin/Dextrose 5%-Water [Levaquin in D5W 500 MG/100 ML] 500 mg Premix Bag 1 bag IV ONETIME 10/18/18 08:00 Levofloxacin/Dextrose 5%-Water [Levaquin in D5W 250 MG/50 ML] 250 mg Premix Bag 1 bag IV Q24H - Plan Plan:: 10/16/18 Dusty Seaman MD Urine C&S from ER visit noted. Antibiotics adjusted. 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
[2018-10-17] MEDS ORDERED: Ciprofloxacin in D5W 400 MG in Premix Bag 1 BAG IV ONE ×2 (06:00)
[2018-10-17] MEDS: Sodium Chloride 0.9% 10 ML Syringe FLUSH PRN ×2 (06:08→07:28)
[2018-10-17] MEDS: Albuterol/Ipratropium 3.0-0.5 MG/3 ML Neb Soln NEB SCH ×3 (07:20→19:19)
[2018-10-17] MEDS: Cyanocobalamin (Vitamin B12) 1,000 MCG Tab PO SCH (07:26)
[2018-10-17] MEDS: Gabapentin 300 MG Cap PO SCH ×3 (07:26→17:13)
[2018-10-17] MEDS: Magnesium Oxide 400 MG Tab PO SCH ×2 (07:26→17:12)
[2018-10-17] MEDS: Cholecalciferol (Vitamin D3) 1,000 Unit Tab PO SCH (07:27)
[2018-10-17] MEDS: Omeprazole 20 MG Cap.CR PO SCH ×2 (07:27→17:13)
[2018-10-17] MEDS: Docusate Sodium 100 MG Cap PO SCH ×2 (07:28→17:12)
[2018-10-17] MEDS: Sodium Chloride 0.9% 10 ML Syringe FLUSH SCH ×3 (07:28→19:21)
[2018-10-17] MEDS: methylPREDNISolone Sodium Succinate 125 MG/2 ML SDV IVPUSH SCH (07:28)
[2018-10-17] MEDS: Budesonide 0.5 MG/2 ML Neb Susp INH SCH ×2 (07:29→19:21)
[2018-10-17] MEDS: Carvedilol 3.125 MG Tab PO SCH ×2 (07:33→17:11)
[2018-10-17] MEDS: Isosorbide Mononitrate 60 MG Tab.ER PO SCH (07:33)
[2018-10-17] MEDS: Arformoterol 15 MCG/2 ML Neb Soln INH SCH ×2 (07:34→19:23)
[2018-10-17] MEDS: Insulin Lispro 100 Units/ML 3 ML Vial SUBCUT SCH ×3 (07:46→17:14)
[2018-10-17] MEDS: Nystatin Topical Powder 15 GM Bottle TOP SCH ×3 (07:47→17:13)
[2018-10-17] MEDS ORDERED: Levofloxacin/Dextrose 5%-Water 500 MG in Premix Bag 1 BAG IV ONE (08:00)
[2018-10-17] MEDS ORDERED: Insulin Isophane NPH, Human 100 Units/ML 3 ML Vial SQ ONE (12:30)
[2018-10-17] MEDS ORDERED: Furosemide 40 MG/4 ML VIAL IVPUSH ONE (13:00)
[2018-10-17] MEDS: Acetaminophen 325 MG Tab PO PRN ×2 (13:37→17:11)
[2018-10-17] MEDS: Ciprofloxacin in D5W 400 MG in Premix Bag 1 BAG IV SCH ×2 (19:20)
[2018-10-17] MEDS: Insulin Glarg,Human.Rec.Analog 100 UNIT/ML ML SUBCUT SCH (19:21)
[2018-10-17] MEDS ORDERED: Ciprofloxacin in D5W 200 MG in Premix Bag 1 BAG IV SCH ×2 (20:00)
--- NOTE | 2018-10-17 21:55 | PCM.PN ---
- General Info Date of Service: 10/17/18 Functional Status: Reports: Pain Controlled, Tolerating Diet - Review of Systems General: Reports: Weakness HEENT: Reports: No Symptoms Pulmonary: Reports: No Symptoms Cardiovascular: Reports: No Symptoms Gastrointestinal: Reports: No Symptoms Genitourinary: Reports: Retention (butler catheter) Musculoskeletal: Reports: Joint Pain (right knee, pain improved today), Joint Swelling (right knee) Skin: Reports: Bruising Neurological: Reports: Difficulty Walking, Weakness Psychiatric: Reports: Confusion - Patient Data Vitals - Most Recent: Last Vital Signs Temp 98.2 F 10/17/18 20:00 Pulse 72 10/17/18 20:00 Resp 20 10/17/18 20:00 BP 152/77 H 10/17/18 20:00 Pulse Ox 100 10/17/18 20:00 Weight - Most Recent: 283 lb 15.992 oz I&O - Last 24 Hours: Intake & Output 10/17/18 10/17/18 10/17/18 06:59 14:59 22:59 Intake Total 300 1970 540 Output Total 1100 1150 1300 Balance -800 820 -760 Lab Results Last 24 Hours: Laboratory Results - last 24 hr 10/17/18 10/17/18 10/17/18 Range/Units 07:41 07:45 07:45 WBC 12.7 H (4.0-10.2) K/uL RBC 2.60 L (4.33-5.41) M/uL Hgb 9.5 L (13.1-16.8) g/dL Hct 29.2 L (39.0-49.0) % MCV 112.3 H (84.0-98.0) fL MCH 36.5 H (28.2-33.3) pg MCHC 32.5 (31.7-36.0) g/dL RDW 15.4 H (11.2-14.1) % Plt Count 81 L (150-350) K/uL Add Manual Diff Yes Neutrophils % (Manual) 60 Band Neutrophils % 6 Lymphocytes % (Manual) 24 Monocytes % (Manual) 10 Absolute Neutrophils 8.3820 Lymphocytes # (Manual) 3.0480 Monocytes # (Manual) 1.2700 ESR > 120 H (0-20) mm/hr Sodium 138 (136-145) mmol/L Potassium 3.8 (3.5-5.1) mmol/L Chloride 101 (98-107) mmol/L Carbon Dioxide 28.1 (21.0-32.0) mmol/L BUN 34 H (7-18) mg/dL Creatinine 1.23 H (0.51-1.17) mg/dL Est Cr Clr Drug Dosing 50.81 mL/min Estimated GFR (MDRD) 57 mL/min Glucose 206 H (74-106) mg/dL POC Glucose 242 H (65-110) mg/dl Lactic Acid (0.4-2.0) mmol/L Uric Acid 6.8 (2.6-7.2) mg/dL Calcium 8.7 (8.5-10.1) mg/dL Total Bilirubin 0.3 (0.2-1.0) mg/dL AST 21 (15-37) U/L ALT 32 (12-78) U/L Alkaline Phosphatase 72 (46-116) IU/L C-Reactive Protein 13.4 H (<=0.9) mg/dL Total Protein 6.1 L (6.4-8.2) g/dL Albumin 2.2 L (3.4-5.0) g/dL 10/17/18 10/17/18 10/17/18 Range/Units 07:45 12:35 16:50 WBC (4.0-10.2) K/uL RBC (4.33-5.41) M/uL Hgb (13.1-16.8) g/dL Hct (39.0-49.0) % MCV (84.0-98.0) fL MCH (28.2-33.3) pg MCHC (31.7-36.0) g/dL RDW (11.2-14.1) % Plt Count (150-350) K/uL Add Manual Diff Neutrophils % (Manual) Band Neutrophils % Lymphocytes % (Manual) Monocytes % (Manual) Absolute Neutrophils Lymphocytes # (Manual) Monocytes # (Manual) ESR (0-20) mm/hr Sodium (136-145) mmol/L Potassium (3.5-5.1) mmol/L Chloride (98-107) mmol/L Carbon Dioxide (21.0-32.0) mmol/L BUN (7-18) mg/dL Creatinine (0.51-1.17) mg/dL Est Cr Clr Drug Dosing mL/min Estimated GFR (MDRD) mL/min Glucose (74-106) mg/dL POC Glucose 333 H* 351 H* (65-110) mg/dl Lactic Acid 3.4 H (0.4-2.0) mmol/L Uric Acid (2.6-7.2) mg/dL Calcium (8.5-10.1) mg/dL Total Bilirubin (0.2-1.0) mg/dL AST (15-37) U/L ALT (12-78) U/L Alkaline Phosphatase (46-116) IU/L C-Reactive Protein (<=0.9) mg/dL Total Protein (6.4-8.2) g/dL Albumin (3.4-5.0) g/dL Med Orders - Current: Current Medications Acetaminophen (Tylenol) 650 mg PO Q4H PRN PRN Reason: Pain Last Admin: 10/17/18 17:11 Dose: 650 mg Albuterol/Ipratropium (Duoneb 3.0-0.5 Mg/3 Ml) 3 ml NEB TIDRT [facility] Last Admin: 10/17/18 19:19 Dose: 3 ml Arformoterol Tartrate (Brovana) 15 mcg INH BIDRT [facility] Last Admin: 10/17/18 19:23 Dose: 15 mcg Budesonide (Pulmicort) 0.5 mg INH BIDRT [facility] Last Admin: 10/17/18 19:21 Dose: 0.5 mg Calcium Carbonate/Glycine (Tums Extra Strength) 750 mg PO Q2HR PRN PRN Reason: Indigestion Last Admin: 10/14/18 21:35 Dose: 750 mg Carvedilol (Coreg) 9.375 mg PO BID [facility] Last Admin: 10/17/18 17:11 Dose: 9.375 mg Cholecalciferol (Vitamin D3) 1,000 units PO DAILY [facility] Last Admin: 10/17/18 07:27 Dose: 1,000 units Cyanocobalamin (Vitamin B12) 1,000 mcg PO DAILY [facility] Last Admin: 10/17/18 07:26 Dose: 1,000 mcg Docusate Sodium (Colace) 100 mg PO BID [facility] Last Admin: 10/17/18 17:12 Dose: Not Given Furosemide (Lasix) 40 mg IVPUSH DAILY [facility] Gabapentin (Neurontin) 300 mg PO TID [facility] Last Admin: 10/17/18 17:13 Dose: 300 mg Ciprofloxacin/Dextrose 400 mg/ (Premix) 200 mls @ 200 mls/hr IV Q12HR [facility] Last Admin: 10/17/18 19:20 Dose: 200 mls/hr Insulin Glargine (Lantus) 20 unit SUBCUT BEDTIME [facility] Last Admin: 10/17/18 19:21 Dose: 20 units Insulin Human Lispro (Humalog) 8 unit SUBCUT TID [facility] Last Admin: 10/17/18 17:14 Dose: 8 units Insulin Human NPH (Humulin N) 20 unit SQ ONETIME ONE Stop: 10/18/18 08:01 Isosorbide Mononitrate (Imdur) 60 mg PO DAILY [facility] Last Admin: 10/17/18 07:33 Dose: 60 mg Magnesium Oxide (Magnesium Oxide) 400 mg PO BID [facility] Last Admin: 10/17/18 17:12 Dose: 400 mg Methylprednisolone Sodium Succinate (Solu-Medrol) 60 mg IVPUSH DAILY [facility] Last Admin: 10/17/18 07:28 Dose: 60 mg Nystatin (Nystop) 0 gm TOP TID [facility] Last Admin: 10/17/18 17:13 Dose: 1 applic Omeprazole (Omeprazole) 20 mg PO BIDAC [facility] Last Admin: 10/17/18 17:13 Dose: 20 mg Sodium Chloride (Saline Flush) 10 ml FLUSH ASDIRECTED PRN PRN Reason: Keep Vein Open Last Admin: 10/17/18 07:28 Dose: 10 ml Sodium Chloride (Saline Flush) 10 ml FLUSH Q12HR [facility] Last Admin: 10/17/18 19:21 Dose: 10 ml Discontinued Medications Allopurinol (Zyloprim) 300 mg PO DAILY [facility] Last Admin: 10/16/18 07:50 Dose: 300 mg Carvedilol (Coreg) 9.375 mg PO BIDMEALS [facility] Last Admin: 10/16/18 07:50 Dose: 9.375 mg Enoxaparin Sodium (Lovenox) 40 mg SUBCUT DAILY [facility] Last Admin: 10/16/18 07:51 Dose: 40 mg Furosemide (Lasix) 40 mg PO DAILY [facility] Last Admin: 10/16/18 07:51 Dose: 40 mg Furosemide (Lasix) 40 mg IVPUSH NOW ONE Stop: 10/17/18 13:01 Last Admin: 10/17/18 13:33 Dose: 40 mg Meropenem 1 gm/ Sodium (Chloride) 100 mls @ 200 mls/hr IV Q8H [facility] Last Admin: 10/14/18 14:26 Dose: 200 mls/hr Piperacillin Sod/Tazobactam (Sod 3.375 gm/ Sodium Chloride) 100 mls @ 200 mls/ hr IV Q6H [facility] Last Admin: 10/14/18 15:12 Dose: 200 mls/hr Meropenem 1 gm/ Sodium (Chloride) 100 mls @ 200 mls/hr IV Q8H [facility] Last Admin: 10/16/18 21:38 Dose: 200 mls/hr Piperacillin Sod/Tazobactam (Sod 3.375 gm/ Sodium Chloride) 100 mls @ 200 mls/ hr IV Q6H [facility] Last Admin: 10/16/18 13:25 Dose: 200 mls/hr Sodium Chloride (Normal Saline) 1,000 mls @ 100 mls/hr IV ASDIRECTED [facility] Last Admin: 10/16/18 07:42 Dose: 100 mls/hr Levofloxacin/Dextrose 500 mg/ (Premix) 100 mls @ 100 mls/hr IV ONETIME ONE Stop: 10/17/18 08:59 Levofloxacin/Dextrose 250 mg/ (Premix) 50 mls @ 50 mls/hr IV Q24H [facility] Ciprofloxacin/Dextrose 400 mg/ (Premix) 200 mls @ 200 mls/hr IV ONETIME ONE Stop: 10/17/18 06:59 Last Admin: 10/17/18 06:08 Dose: 200 mls/hr Ciprofloxacin/Dextrose 200 mg/ (Premix) 100 mls @ 100 mls/hr IV Q12HR [facility] Ibuprofen (Motrin) 400 mg PO Q6H PRN PRN Reason: Fever Last Admin: 10/14/18 17:48 Dose: 400 mg Insulin Glargine (Lantus) 0 unit SUBCUT BEDTIME [facility] Last Admin: 10/15/18 20:09 Dose: 20 units Insulin Human Lispro (Humalog) 0 unit SUBCUT TID [facility] Last Admin: 10/15/18 11:36 Dose: 8 unit Insulin Human Lispro (Humalog) 20 unit SUBCUT ONETIME ONE Stop: 10/15/18 18:01 Last Admin: 10/15/18 18:01 Dose: 20 units Insulin Human Lispro (Humalog) 0 unit SUBCUT TID [facility] Last Admin: 10/16/18 07:47 Dose: 8 units Insulin Human NPH (Humulin N) 20 unit SQ ONETIME ONE Stop: 10/16/18 15:31 Last Admin: 10/16/18 15:35 Dose: 20 unit Insulin Human NPH (Humulin N) 10 unit SQ ONETIME ONE Stop: 10/17/18 12:31 Last Admin: 10/17/18 12:36 Dose: 10 unit Methylprednisolone Sodium Succinate (Solu-Medrol) 60 mg IVPUSH Q6H [facility] Last Admin: 10/16/18 13:14 Dose: Not Given - Exam Quality Assessment: Supplemental Oxygen, Central Line/PICC, Urine Catheter, DVT Prophylaxis (no due to CKD and low platelett count) General: Alert, Cooperative, No Acute Distress HEENT: Mucous Membr. Moist/[place] Neck: Trachea Midline, No JVD Lungs: Normal Respiratory Effort, Decreased Breath Sounds Cardiovascular: Regular Rate, Regular Rhythm GI/Abdominal Exam: Soft, Non-Tender, No Distention (Male) Exam: Deferred, Other (butler catheter) Back Exam: Normal Inspection Extremities: Non-Tender, Pedal Edema, Joint Swelling (right knee) Skin: Warm, Dry, Ecchymosis Neurological: No New Focal Deficit, Other (weakness bilateral legs, able to bear weight today) Psy/Mental Status: Alert, Normal Affect, Normal Mood - Problem List & Annotations (1) Urinary tract infection due to extended-spectrum beta lactamase (ESBL)- producing Klebsiella SNOMED Code(s): 592327858 Code(s): N39.0 - URINARY TRACT INFECTION, SITE NOT SPECIFIED; B96.89 - OTH BACTERIAL AGENTS THE CAUSE OF DISEASES CLASSD ELSWHR Status: Acute Priority: High Current Visit: Yes (2) Generalized weakness SNOMED Code(s): 40148433 Code(s): R53.1 - WEAKNESS Status: Acute Current Visit: Yes Annotation/ Comment:: Patient feeling 100% better getting stronger denies pain at rest minimal discomfort with ambulation (3) Right leg pain SNOMED Code(s): 701371621 Code(s): M79.604 - PAIN IN RIGHT LEG Status: Acute Current Visit: Yes (4) Urinary tract infection SNOMED Code(s): 87294161 Code(s): N39.0 - URINARY TRACT INFECTION, SITE NOT SPECIFIED Status: Acute Current Visit: Yes Qualifiers: Urinary tract infection type: catheter-associated UTI Indwelling urinary catheter type: indwelling urethral catheter Encounter type: initial encounter Qualified Code(s): T83.511A - Infection and inflammatory reaction due to indwelling urethral catheter, initial encounter; N39.0 - Urinary tract infection , site not specified Annotation/Comment:: Patient doing 100% better feeling stronger 10/16/18 Urine C&S from ER results klebsiella. See sensitivities. Antibiotics changed. (5) Comfort measures only status SNOMED Code(s): 87822042398749 Code(s): Z51.5 - ENCOUNTER FOR PALLIATIVE CARE Status: Acute Priority: Medium Current Visit: No (6) Contusion of right leg SNOMED Code(s): 57146286 Code(s): S80.11XA - CONTUSION OF RIGHT LOWER LEG, INITIAL ENCOUNTER Status : Acute Current Visit: No (7) DNI (do not intubate) SNOMED Code(s): 097383175 Code(s): Z78.9 - OTHER SPECIFIED HEALTH STATUS Status: Acute Current Visit: No (8) DNR (do not resuscitate) Status: Acute Current Visit: No (9) Elevated sedimentation rate SNOMED Code(s): 314826955 Code(s): R70.0 - ELEVATED ERYTHROCYTE SEDIMENTATION RATE Status: Acute Priority: High Current Visit: No (10) Fever SNOMED Code(s): 163968761 Code(s): R50.9 - FEVER, UNSPECIFIED Status: Acute Current Visit: No Qualifiers: Fever type: unspecified Qualified Code(s): R50.9 - Fever, unspecified (11) Leukocytosis SNOMED Code(s): 183788305, 780795120 Code(s): D72.829 - ELEVATED WHITE BLOOD CELL COUNT, UNSPECIFIED Status: Acute Current Visit: No Qualifiers: Leukocytosis type: unspecified Qualified Code(s): D72.829 - Elevated white blood cell count, unspecified Annotation/Comment:: Possibly secondary to UTI/pneumonia (12) Urinary retention SNOMED Code(s): 391820649 Code(s): R33.9 - RETENTION OF URINE, UNSPECIFIED Status: Acute Current Visit: No (13) Anemia SNOMED Code(s): 558426664 Code(s): D64.9 - ANEMIA, UNSPECIFIED Status: Chronic Priority: Medium Current Visit: No Qualifiers: Anemia type: iron deficiency Annotation/Comment:: Both iron and vitamin B-12 deficiency verified during recent acute care hospitalization. Continue supplementation as per discharge orders with close follow-up by his regular provider. Note hemoglobin improved from 9.1 during recent acute care. Additional history of renal insufficiency and chronic diseases as contributing factors to his anemia. (14) COPD (chronic obstructive pulmonary disease) SNOMED Code(s): 44827087 Code(s): J44.9 - CHRONIC OBSTRUCTIVE PULMONARY DISEASE, UNSPECIFIED Status : Chronic Priority: High Current Visit: No Qualifiers: COPD type: COPD with acute lower respiratory infection Qualified Code(s): J44.0 - Chronic obstructive pulmonary disease with acute lower respiratory infection Annotation/Comment:: Patient will undergo IV antibiotics bronchodilators and steroids (15) Chronic GERD SNOMED Code(s): 283046338, 423160229 Code(s): K21.9 - GASTRO-ESOPHAGEAL REFLUX DISEASE WITHOUT ESOPHAGITIS Status: Chronic Priority: Medium Current Visit: No (16) Chronic kidney disease (CKD) SNOMED Code(s): 529461056 Code(s): N18.9 - CHRONIC KIDNEY DISEASE, UNSPECIFIED Status: Chronic Priority: High Current Visit: No Qualifiers: Chronic kidney disease stage: unspecified stage Qualified Code(s): N18.9 - Chronic kidney disease, unspecified Annotation/Comment:: History of diabetic nephropathy. Continue to observe closely. (17) Chronic respiratory failure with hypoxia SNOMED Code(s): 845327660 Code(s): J96.11 - CHRONIC RESPIRATORY FAILURE WITH HYPOXIA Status: Chronic Priority: High Current Visit: No (18) Coronary artery disease SNOMED Code(s): 49445678 Code(s): I25.10 - ATHSCL HEART DISEASE OF [place] CORONARY ARTERY W/O ANG PCTRS Status: Chronic Priority: Medium Current Visit: No Qualifiers: Coronary Disease-Associated Artery/Lesion type: [place] artery [place] vs. transplanted heart: [place] heart Associated angina: without angina Qualified Code(s): I25.10 - Atherosclerotic heart disease of [place] coronary artery without angina pectoris Annotation/Comment:: As above (19) Diabetes mellitus SNOMED Code(s): 67424993 Code(s): E11.9 - TYPE 2 DIABETES MELLITUS WITHOUT COMPLICATIONS Status: Chronic Priority: Medium Current Visit: No (20) Dyslipidemia SNOMED Code(s): 010125153 Code(s): E78.5 - HYPERLIPIDEMIA, UNSPECIFIED Status: Chronic Priority: Medium Current Visit: No (21) Gout SNOMED Code(s): 37957622 Code(s): M10.9 - GOUT, UNSPECIFIED Status: Chronic Priority: Low Current Visit: No Qualifiers: Gout site: unspecified site Gout etiology: due to renal impairment Chronicity: chronic Presence of tophus: without tophus Qualified Code(s): M1A.30X0 - Chronic gout due to renal impairment, unspecified site, without tophus (tophi) (22) HTN, Benign hypertension SNOMED Code(s): 05369175 Code(s): I10 - ESSENTIAL (PRIMARY) HYPERTENSION Status: Chronic Priority : Medium Current Visit: No (23) Hypoalbuminemia SNOMED Code(s): 496699324 Code(s): E88.09 - [facility] DISORDERS OF PLASMA-PROTEIN METABOLISM, NEC Status: Chronic Priority: Medium Current Visit: No (24) Neuropathy SNOMED Code(s): 475520710 Code(s): G62.9 - POLYNEUROPATHY, UNSPECIFIED Status: Chronic Priority: Medium Current Visit: No (25) Obesity (BMI 30-39.9) SNOMED Code(s): 652576757, 537656877 Code(s): E66.9 - OBESITY, UNSPECIFIED Status: Chronic Priority: Medium Current Visit: No (26) Obstructive sleep apnea on CPAP SNOMED Code(s): 00951367 Code(s): G47.33 - OBSTRUCTIVE SLEEP APNEA (ADULT) (PEDIATRIC); Z99.89 - DEPENDENCE ON OTHER ENABLING MACHINES AND DEVICES Status: Chronic Priority: Low Current Visit: No Annotation/Comment:: using CPAP machinge at night, will continue (27) Osteoarthritis SNOMED Code(s): 979097837 Code(s): M19.90 - UNSPECIFIED OSTEOARTHRITIS, UNSPECIFIED SITE Status: Chronic Priority: Medium Current Visit: No (28) Oxygen dependent SNOMED Code(s): 688863292821 Code(s): Z99.81 - DEPENDENCE ON SUPPLEMENTAL OXYGEN Status: Chronic Priority: High Current Visit: No (29) History of ESBL Klebsiella pneumoniae infection SNOMED Code(s): 310392841 Code(s): Z86.19 - PERSONAL HISTORY OF OTHER INFECTIOUS AND PARASITIC DISEASES Status: Acute Priority: High Current Visit: Yes (30) Effusion, right knee SNOMED Code(s): 665440419 Code(s): M25.461 - EFFUSION, RIGHT KNEE Status: Acute Priority: High Current Visit: Yes (31) Old cerebrovascular accident (CVA) without late effect SNOMED Code(s): 225813595 Code(s): Z86.73 - PRSNL HX OF TIA (TIA), AND CEREB INFRC W/O RESID DEFICITS Status: Acute Priority: Medium Current Visit: Yes (32) Infarction of left basal ganglia SNOMED Code(s): 247808443 Code(s): I63.9 - CEREBRAL INFARCTION, UNSPECIFIED Status: Acute Priority : Medium Current Visit: Yes (33) Emphysema lung SNOMED Code(s): 65653901 Code(s): J43.9 - EMPHYSEMA, UNSPECIFIED Status: Acute Current Visit: Yes Qualifiers: Emphysema type: panlobular Qualified Code(s): J43.1 - Panlobular emphysema (34) Chronic cerebral ischemia SNOMED Code(s): 397943826 Code(s): I67.82 - CEREBRAL ISCHEMIA Status: Acute Priority: Medium Current Visit: Yes (35) Thrombocytopenia SNOMED Code(s): 169994406 Code(s): D69.6 - THROMBOCYTOPENIA, UNSPECIFIED Status: Acute Priority: High Current Visit: Yes - Problem List Review Problem List Initiated/Reviewed/Updated: Yes - My Orders Last 24 Hours: My Active Orders 10/17/18 20:00 Ciprofloxacin in D5W [Cipro in D5W 400 MG/200 ML] 400 mg Premix Bag 1 bag IV Q12HR 10/18/18 05:11 LACTIC ACID [CHEM] Routine MAGNESIUM [CHEM] Routine SEDIMENTATION RATE AUTO [HEME] Routine 10/18/18 08:00 Furosemide [Lasix] 40 mg IVPUSH DAILY Insulin NPH Human Isophane [HumuLIN N] 20 unit SQ ONETIME ONE - Plan Plan:: 10/16/18 Dusty Seaman MD Urine C&S from ER visit noted. Antibiotics adjusted. 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 10/17/18 Dusty Seaman MD Feeling better today. Getting stronger. No pain in the right knee today. Was able to bear weight on both legs today. Urine C&S Klebsiella pneumonia ESBL so on cipro. Lovenox was stopped yesterday due to CKD and thrombocytopenia.
[2018-10-18 07:57] LABS: CHLORIDE,CL 101 mmol/L (98-107); SODIUM,NA 140 mmol/L (136-145)
[2018-10-18] MEDS ORDERED: Insulin Isophane NPH, Human 100 Units/ML 3 ML Vial SQ ONE (08:00)
[2018-10-18] MEDS ORDERED: Levofloxacin/Dextrose 5%-Water 250 MG in Premix Bag 1 BAG IV SCH (08:00)
[2018-10-18] MEDS: Acetaminophen 325 MG Tab PO PRN (08:35)
[2018-10-18] MEDS: Magnesium Oxide 400 MG Tab PO SCH ×2 (08:36→17:27)
[2018-10-18] MEDS: Isosorbide Mononitrate 60 MG Tab.ER PO SCH (08:36)
[2018-10-18] MEDS: Gabapentin 300 MG Cap PO SCH ×3 (08:37→17:27)
[2018-10-18] MEDS: Omeprazole 20 MG Cap.CR PO SCH ×2 (08:37→17:25)
[2018-10-18] MEDS: Carvedilol 3.125 MG Tab PO SCH ×2 (08:37→17:26)
[2018-10-18] MEDS: Cholecalciferol (Vitamin D3) 1,000 Unit Tab PO SCH (08:37)
[2018-10-18] MEDS: Cyanocobalamin (Vitamin B12) 1,000 MCG Tab PO SCH (08:38)
[2018-10-18] MEDS: Furosemide 40 MG/4 ML VIAL IVPUSH SCH (08:38)
[2018-10-18] MEDS: Docusate Sodium 100 MG Cap PO SCH ×2 (08:38→17:25)
[2018-10-18] MEDS: Budesonide 0.5 MG/2 ML Neb Susp INH SCH ×2 (08:39→19:15)
[2018-10-18] MEDS: methylPREDNISolone Sodium Succinate 125 MG/2 ML SDV IVPUSH SCH (08:39)
[2018-10-18] MEDS: Arformoterol 15 MCG/2 ML Neb Soln INH SCH ×2 (08:39→19:15)
[2018-10-18] MEDS: Nystatin Topical Powder 15 GM Bottle TOP SCH ×3 (08:39→17:27)
[2018-10-18] MEDS: Albuterol/Ipratropium 3.0-0.5 MG/3 ML Neb Soln NEB SCH ×3 (08:39→19:11)
[2018-10-18] MEDS: Insulin Lispro 100 Units/ML 3 ML Vial SUBCUT SCH ×3 (08:40→17:25)
[2018-10-18] MEDS: Ciprofloxacin in D5W 400 MG in Premix Bag 1 BAG IV SCH ×4 (08:42→19:09)
[2018-10-18] MEDS: Sodium Chloride 0.9% 10 ML Syringe FLUSH SCH ×2 (08:43→19:14)
[2018-10-18] MEDS: Sodium Chloride 0.9% 10 ML Syringe FLUSH PRN ×4 (08:44→19:17)
--- NOTE | 2018-10-18 16:05 | PCM.PN ---
- General Info Date of Service: 10/18/18 Functional Status: Reports: Pain Controlled, Tolerating Diet - Review of Systems General: Reports: Weakness HEENT: Reports: No Symptoms Pulmonary: Reports: No Symptoms Cardiovascular: Reports: No Symptoms Gastrointestinal: Reports: Hematochezia Genitourinary: Reports: Retention, Other (butler catheter) Musculoskeletal: Reports: Hand Pain (bilateral MCP swelling chronic) Skin: Reports: Bruising Neurological: Reports: Difficulty Walking, Weakness Psychiatric: Reports: No Symptoms - Patient Data Vitals - Most Recent: Last Vital Signs Temp 97.4 F 10/18/18 11:18 Pulse 81 10/18/18 11:18 Resp 21 H 10/18/18 11:18 BP 116/59 L 10/18/18 11:18 Pulse Ox 100 10/18/18 11:18 Weight - Most Recent: 283 lb 15.992 oz I&O - Last 24 Hours: Intake & Output 10/18/18 10/18/18 10/18/18 06:59 14:59 22:59 Intake Total 150 1430 Output Total 1450 575 Balance -1300 855 Lab Results Last 24 Hours: Laboratory Results - last 24 hr 10/17/18 10/18/18 10/18/18 Range/Units 16:50 07:10 07:18 WBC 11.0 H (4.0-10.2) K/uL RBC 2.54 L (4.33-5.41) M/uL Hgb 9.3 L (13.1-16.8) g/dL Hct 28.5 L (39.0-49.0) % MCV 112.2 H (84.0-98.0) fL MCH 36.6 H (28.2-33.3) pg MCHC 32.6 (31.7-36.0) g/dL RDW 14.9 H (11.2-14.1) % Plt Count 110 L (150-350) K/uL Neut % (Auto) 65.0 (45.0-80.0) % Lymph % (Auto) 22.7 (10.0-50.0) % [place] % (Auto) 12.0 (2.0-14.0) % Eos % (Auto) 0.2 (0.0-5.0) % Baso % (Auto) 0.1 (0.0-2.0) % Neut # (Auto) 7.17 H (1.40-7.00) K/uL Lymph # (Auto) 2.51 (0.50-3.50) K/uL [place] # (Auto) 1.33 H (0.00-1.00) K/uL Eos # (Auto) 0.02 (0.00-0.50) K/uL Baso # (Auto) 0.01 (0.00-0.20) K/uL ESR > 120 H (0-20) mm/hr Sodium (136-145) mmol/L Potassium (3.5-5.1) mmol/L Chloride (98-107) mmol/L Carbon Dioxide (21.0-32.0) mmol/L BUN (7-18) mg/dL Creatinine (0.51-1.17) mg/dL Est Cr Clr Drug Dosing mL/min Estimated GFR (MDRD) mL/min Glucose (74-106) mg/dL POC Glucose 351 H* 150 H (65-110) mg/dl Lactic Acid (0.4-2.0) mmol/L Calcium (8.5-10.1) mg/dL Magnesium (1.8-2.4) mg/dL Total Bilirubin (0.2-1.0) mg/dL AST (15-37) U/L ALT (12-78) U/L Alkaline Phosphatase (46-116) IU/L C-Reactive Protein (<=0.9) mg/dL Total Protein (6.4-8.2) g/dL Albumin (3.4-5.0) g/dL 10/18/18 10/18/18 10/18/18 Range/Units 07:18 07:18 13:36 WBC (4.0-10.2) K/uL RBC (4.33-5.41) M/uL Hgb 9.1 L (13.1-16.8) g/dL Hct 28.1 L (39.0-49.0) % MCV (84.0-98.0) fL MCH (28.2-33.3) pg MCHC (31.7-36.0) g/dL RDW (11.2-14.1) % Plt Count (150-350) K/uL Neut % (Auto) (45.0-80.0) % Lymph % (Auto) (10.0-50.0) % [place] % (Auto) (2.0-14.0) % Eos % (Auto) (0.0-5.0) % Baso % (Auto) (0.0-2.0) % Neut # (Auto) (1.40-7.00) K/uL Lymph # (Auto) (0.50-3.50) K/uL [place] # (Auto) (0.00-1.00) K/uL Eos # (Auto) (0.00-0.50) K/uL Baso # (Auto) (0.00-0.20) K/uL ESR (0-20) mm/hr Sodium 140 (136-145) mmol/L Potassium 4.2 (3.5-5.1) mmol/L Chloride 101 (98-107) mmol/L Carbon Dioxide 30.2 (21.0-32.0) mmol/L BUN 35 H (7-18) mg/dL Creatinine 1.00 (0.51-1.17) mg/dL Est Cr Clr Drug Dosing 62.49 mL/min Estimated GFR (MDRD) > 60 mL/min Glucose 152 H (74-106) mg/dL POC Glucose (65-110) mg/dl Lactic Acid 2.3 H (0.4-2.0) mmol/L Calcium 8.9 (8.5-10.1) mg/dL Magnesium 2.0 (1.8-2.4) mg/dL Total Bilirubin 0.3 (0.2-1.0) mg/dL AST 20 (15-37) U/L ALT 32 (12-78) U/L Alkaline Phosphatase 65 (46-116) IU/L C-Reactive Protein 7.7 H (<=0.9) mg/dL Total Protein 5.7 L (6.4-8.2) g/dL Albumin 2.3 L (3.4-5.0) g/dL Med Orders - Current: Current Medications Acetaminophen (Tylenol) 650 mg PO Q4H PRN PRN Reason: Pain Last Admin: 10/18/18 08:35 Dose: 650 mg Albuterol/Ipratropium (Duoneb 3.0-0.5 Mg/3 Ml) 3 ml NEB TIDRT ON LICENSE OF [facility] Last Admin: 10/18/18 14:41 Dose: 3 ml Arformoterol Tartrate (Brovana) 15 mcg INH BIDRT ON LICENSE OF [facility] Last Admin: 10/18/18 08:39 Dose: 15 mcg Budesonide (Pulmicort) 0.5 mg INH BIDRT ON LICENSE OF [facility] Last Admin: 10/18/18 08:39 Dose: 0.5 mg Calcium Carbonate/Glycine (Tums Extra Strength) 750 mg PO Q2HR PRN PRN Reason: Indigestion Last Admin: 10/14/18 21:35 Dose: 750 mg Carvedilol (Coreg) 9.375 mg PO BID ON LICENSE OF [facility] Last Admin: 10/18/18 08:37 Dose: 9.375 mg Cholecalciferol (Vitamin D3) 1,000 units PO DAILY ON LICENSE OF [facility] Last Admin: 10/18/18 08:37 Dose: 1,000 units Cyanocobalamin (Vitamin B12) 1,000 mcg PO DAILY ON LICENSE OF [facility] Last Admin: 10/18/18 08:38 Dose: 1,000 mcg Docusate Sodium (Colace) 100 mg PO BID ON LICENSE OF [facility] Last Admin: 10/18/18 08:38 Dose: 100 mg Furosemide (Lasix) 40 mg IVPUSH DAILY ON LICENSE OF [facility] Last Admin: 10/18/18 08:38 Dose: 40 mg Gabapentin (Neurontin) 300 mg PO TID ON LICENSE OF [facility] Last Admin: 10/18/18 11:39 Dose: 300 mg Ciprofloxacin/Dextrose 400 mg/ (Premix) 200 mls @ 200 mls/hr IV Q12HR ON LICENSE OF [facility] Last Admin: 10/18/18 08:42 Dose: 200 mls/hr Insulin Glargine (Lantus) 20 unit SUBCUT BEDTIME ON LICENSE OF [facility] Last Admin: 10/17/18 19:21 Dose: 20 units Insulin Human Lispro (Humalog) 8 unit SUBCUT TID ON LICENSE OF [facility] Last Admin: 10/18/18 11:39 Dose: 8 units Isosorbide Mononitrate (Imdur) 60 mg PO DAILY ON LICENSE OF [facility] Last Admin: 10/18/18 08:36 Dose: 60 mg Magnesium Oxide (Magnesium Oxide) 400 mg PO BID ON LICENSE OF [facility] Last Admin: 10/18/18 08:36 Dose: 400 mg Methylprednisolone Sodium Succinate (Solu-Medrol) 40 mg IVPUSH DAILY ON LICENSE OF [facility] Nystatin (Nystop) 0 gm TOP TID ON LICENSE OF [facility] Last Admin: 10/18/18 11:40 Dose: 1 applic Omeprazole (Omeprazole) 20 mg PO BIDAC ON LICENSE OF [facility] Last Admin: 10/18/18 08:37 Dose: 20 mg Sodium Chloride (Saline Flush) 10 ml FLUSH ASDIRECTED PRN PRN Reason: Keep Vein Open Last Admin: 10/18/18 08:44 Dose: 10 ml Sodium Chloride (Saline Flush) 10 ml FLUSH Q12HR ON LICENSE OF [facility] Last Admin: 10/18/18 08:43 Dose: 10 ml Discontinued Medications Allopurinol (Zyloprim) 300 mg PO DAILY ON LICENSE OF [facility] Last Admin: 10/16/18 07:50 Dose: 300 mg Carvedilol (Coreg) 9.375 mg PO BIDMEALS ON LICENSE OF [facility] Last Admin: 10/16/18 07:50 Dose: 9.375 mg Enoxaparin Sodium (Lovenox) 40 mg SUBCUT DAILY ON LICENSE OF [facility] Last Admin: 10/16/18 07:51 Dose: 40 mg Furosemide (Lasix) 40 mg PO DAILY ON LICENSE OF [facility] Last Admin: 10/16/18 07:51 Dose: 40 mg Furosemide (Lasix) 40 mg IVPUSH NOW ONE Stop: 10/17/18 13:01 Last Admin: 10/17/18 13:33 Dose: 40 mg Meropenem 1 gm/ Sodium (Chloride) 100 mls @ 200 mls/hr IV Q8H ON LICENSE OF [facility] Last Admin: 10/14/18 14:26 Dose: 200 mls/hr Piperacillin Sod/Tazobactam (Sod 3.375 gm/ Sodium Chloride) 100 mls @ 200 mls/ hr IV Q6H ON LICENSE OF [facility] Last Admin: 10/14/18 15:12 Dose: 200 mls/hr Meropenem 1 gm/ Sodium (Chloride) 100 mls @ 200 mls/hr IV Q8H ON LICENSE OF [facility] Last Admin: 10/16/18 21:38 Dose: 200 mls/hr Piperacillin Sod/Tazobactam (Sod 3.375 gm/ Sodium Chloride) 100 mls @ 200 mls/ hr IV Q6H ON LICENSE OF [facility] Last Admin: 10/16/18 13:25 Dose: 200 mls/hr Sodium Chloride (Normal Saline) 1,000 mls @ 100 mls/hr IV ASDIRECTED ON LICENSE OF [facility] Last Admin: 10/16/18 07:42 Dose: 100 mls/hr Levofloxacin/Dextrose 500 mg/ (Premix) 100 mls @ 100 mls/hr IV ONETIME ONE Stop: 10/17/18 08:59 Levofloxacin/Dextrose 250 mg/ (Premix) 50 mls @ 50 mls/hr IV Q24H [place] Ciprofloxacin/Dextrose 400 mg/ (Premix) 200 mls @ 200 mls/hr IV ONETIME ONE Stop: 10/17/18 06:59 Last Admin: 10/17/18 06:08 Dose: 200 mls/hr Ciprofloxacin/Dextrose 200 mg/ (Premix) 100 mls @ 100 mls/hr IV Q12HR ON LICENSE OF [facility] Ibuprofen (Motrin) 400 mg PO Q6H PRN PRN Reason: Fever Last Admin: 10/14/18 17:48 Dose: 400 mg Insulin Glargine (Lantus) 0 unit SUBCUT BEDTIME ON LICENSE OF [facility] Last Admin: 10/15/18 20:09 Dose: 20 units Insulin Human Lispro (Humalog) 0 unit SUBCUT TID ON LICENSE OF [facility] Last Admin: 10/15/18 11:36 Dose: 8 unit Insulin Human Lispro (Humalog) 20 unit SUBCUT ONETIME ONE Stop: 10/15/18 18:01 Last Admin: 10/15/18 18:01 Dose: 20 units Insulin Human Lispro (Humalog) 0 unit SUBCUT TID ON LICENSE OF [facility] Last Admin: 10/16/18 07:47 Dose: 8 units Insulin Human NPH (Humulin N) 20 unit SQ ONETIME ONE Stop: 10/16/18 15:31 Last Admin: 10/16/18 15:35 Dose: 20 unit Insulin Human NPH (Humulin N) 10 unit SQ ONETIME ONE Stop: 10/17/18 12:31 Last Admin: 10/17/18 12:36 Dose: 10 unit Insulin Human NPH (Humulin N) 20 unit SQ ONETIME ONE Stop: 10/18/18 08:01 Last Admin: 10/18/18 08:42 Dose: 20 unit Methylprednisolone Sodium Succinate (Solu-Medrol) 60 mg IVPUSH Q6H ON LICENSE OF [facility] Last Admin: 10/16/18 13:14 Dose: Not Given Methylprednisolone Sodium Succinate (Solu-Medrol) 60 mg IVPUSH DAILY ON LICENSE OF [facility] Last Admin: 10/18/18 08:39 Dose: 60 mg - Exam Quality Assessment: Supplemental Oxygen, Central Line/PICC, Urine Catheter General: Alert, Cooperative, No Acute Distress HEENT: Mucous Membr. Moist/Liberal Neck: Trachea Midline, No JVD Lungs: Normal Respiratory Effort, Decreased Breath Sounds Cardiovascular: Regular Rate, Regular Rhythm GI/Abdominal Exam: Soft, Non-Tender, No Distention (Male) Exam: Deferred Back Exam: Normal Inspection Extremities: Non-Tender, Pedal Edema, Joint Swelling (right knee swelling decreased) Skin: Warm, Dry, Intact, Ecchymosis Neurological: No New Focal Deficit Psy/Mental Status: Alert, Normal Affect, Normal Mood - Problem List & Annotations (1) Urinary tract infection due to extended-spectrum beta lactamase (ESBL)- producing Klebsiella SNOMED Code(s): 271224772 Code(s): N39.0 - URINARY TRACT INFECTION, SITE NOT SPECIFIED; B96.89 - OTH BACTERIAL AGENTS THE CAUSE OF DISEASES CLASSD ELSWHR Status: Acute Priority: High Current Visit: Yes (2) Effusion, right knee SNOMED Code(s): 860934522 Code(s): M25.461 - EFFUSION, RIGHT KNEE Status: Acute Priority: High Current Visit: Yes (3) Generalized weakness SNOMED Code(s): 74215514 Code(s): R53.1 - WEAKNESS Status: Acute Current Visit: Yes Annotation/ Comment:: Patient feeling 100% better getting stronger denies pain at rest minimal discomfort with ambulation (4) Right leg pain SNOMED Code(s): 030757386 Code(s): M79.604 - PAIN IN RIGHT LEG Status: Acute Current Visit: Yes (5) Urinary tract infection SNOMED Code(s): 67452091 Code(s): N39.0 - URINARY TRACT INFECTION, SITE NOT SPECIFIED Status: Acute Current Visit: Yes Qualifiers: Urinary tract infection type: catheter-associated UTI Indwelling urinary catheter type: indwelling urethral catheter Encounter type: initial encounter Qualified Code(s): T83.511A - Infection and inflammatory reaction due to indwelling urethral catheter, initial encounter; N39.0 - Urinary tract infection , site not specified Annotation/Comment:: Patient doing 100% better feeling stronger 10/16/18 Urine C&S from ER results klebsiella. See sensitivities. Antibiotics changed. (6) Comfort measures only status SNOMED Code(s): 58931847302887 Code(s): Z51.5 - ENCOUNTER FOR PALLIATIVE CARE Status: Acute Priority: Medium Current Visit: No (7) Contusion of right leg SNOMED Code(s): 83648814 Code(s): S80.11XA - CONTUSION OF RIGHT LOWER LEG, INITIAL ENCOUNTER Status : Acute Current Visit: No (8) DNI (do not intubate) SNOMED Code(s): 529846574 Code(s): Z78.9 - OTHER SPECIFIED HEALTH STATUS Status: Acute Current Visit: No (9) DNR (do not resuscitate) Status: Acute Current Visit: No (10) Elevated sedimentation rate SNOMED Code(s): 622903026 Code(s): R70.0 - ELEVATED ERYTHROCYTE SEDIMENTATION RATE Status: Acute Priority: High Current Visit: No (11) Fever SNOMED Code(s): 532978277 Code(s): R50.9 - FEVER, UNSPECIFIED Status: Acute Current Visit: No Qualifiers: Fever type: unspecified Qualified Code(s): R50.9 - Fever, unspecified (12) Leukocytosis SNOMED Code(s): 897221520, 282793614 Code(s): D72.829 - ELEVATED WHITE BLOOD CELL COUNT, UNSPECIFIED Status: Acute Current Visit: No Qualifiers: Leukocytosis type: unspecified Qualified Code(s): D72.829 - Elevated white blood cell count, unspecified Annotation/Comment:: Possibly secondary to UTI/pneumonia (13) Urinary retention SNOMED Code(s): 243756840 Code(s): R33.9 - RETENTION OF URINE, UNSPECIFIED Status: Acute Current Visit: No (14) Anemia SNOMED Code(s): 836488460 Code(s): D64.9 - ANEMIA, UNSPECIFIED Status: Chronic Priority: Medium Current Visit: No Qualifiers: Anemia type: iron deficiency Annotation/Comment:: Both iron and vitamin B-12 deficiency verified during recent acute care hospitalization. Continue supplementation as per discharge orders with close follow-up by his regular provider. Note hemoglobin improved from 9.1 during recent acute care. Additional history of renal insufficiency and chronic diseases as contributing factors to his anemia. (15) COPD (chronic obstructive pulmonary disease) SNOMED Code(s): 98315472 Code(s): J44.9 - CHRONIC OBSTRUCTIVE PULMONARY DISEASE, UNSPECIFIED Status : Chronic Priority: High Current Visit: No Qualifiers: COPD type: COPD with acute lower respiratory infection Qualified Code(s): J44.0 - Chronic obstructive pulmonary disease with acute lower respiratory infection Annotation/Comment:: Patient will undergo IV antibiotics bronchodilators and steroids (16) Chronic GERD SNOMED Code(s): 127215105, 914859355 Code(s): K21.9 - GASTRO-ESOPHAGEAL REFLUX DISEASE WITHOUT ESOPHAGITIS Status: Chronic Priority: Medium Current Visit: No (17) Chronic kidney disease (CKD) SNOMED Code(s): 665055786 Code(s): N18.9 - CHRONIC KIDNEY DISEASE, UNSPECIFIED Status: Chronic Priority: High Current Visit: No Qualifiers: Chronic kidney disease stage: unspecified stage Qualified Code(s): N18.9 - Chronic kidney disease, unspecified Annotation/Comment:: History of diabetic nephropathy. Continue to observe closely. (18) Chronic respiratory failure with hypoxia SNOMED Code(s): 266197829 Code(s): J96.11 - CHRONIC RESPIRATORY FAILURE WITH HYPOXIA Status: Chronic Priority: High Current Visit: No (19) Coronary artery disease SNOMED Code(s): 45588443 Code(s): I25.10 - ATHSCL HEART DISEASE OF [place] CORONARY ARTERY W/O ANG PCTRS Status: Chronic Priority: Medium Current Visit: No Qualifiers: Coronary Disease-Associated Artery/Lesion type: enterprise artery [place] vs. transplanted heart: enterprise heart Associated angina: without angina Qualified Code(s): I25.10 - Atherosclerotic heart disease of [place] coronary artery without angina pectoris Annotation/Comment:: As above (20) Diabetes mellitus SNOMED Code(s): 80647947 Code(s): E11.9 - TYPE 2 DIABETES MELLITUS WITHOUT COMPLICATIONS Status: Chronic Priority: Medium Current Visit: No (21) Dyslipidemia SNOMED Code(s): 618131403 Code(s): E78.5 - HYPERLIPIDEMIA, UNSPECIFIED Status: Chronic Priority: Medium Current Visit: No (22) Gout SNOMED Code(s): 62171050 Code(s): M10.9 - GOUT, UNSPECIFIED Status: Chronic Priority: Low Current Visit: No Qualifiers: Gout site: unspecified site Gout etiology: due to renal impairment Chronicity: chronic Presence of tophus: without tophus Qualified Code(s): M1A.30X0 - Chronic gout due to renal impairment, unspecified site, without tophus (tophi) (23) HTN, Benign hypertension SNOMED Code(s): 77449890 Code(s): I10 - ESSENTIAL (PRIMARY) HYPERTENSION Status: Chronic Priority : Medium Current Visit: No (24) Hypoalbuminemia SNOMED Code(s): 767055634 Code(s): E88.09 - OTH DISORDERS OF PLASMA-PROTEIN METABOLISM, NEC Status: Chronic Priority: Medium Current Visit: No (25) Neuropathy SNOMED Code(s): 963032102 Code(s): G62.9 - POLYNEUROPATHY, UNSPECIFIED Status: Chronic Priority: Medium Current Visit: No (26) Obesity (BMI 30-39.9) SNOMED Code(s): 039063475, 278768087 Code(s): E66.9 - OBESITY, UNSPECIFIED Status: Chronic Priority: Medium Current Visit: No (27) Obstructive sleep apnea on CPAP SNOMED Code(s): 77790520 Code(s): G47.33 - OBSTRUCTIVE SLEEP APNEA (ADULT) (PEDIATRIC); Z99.89 - DEPENDENCE ON OTHER ENABLING MACHINES AND DEVICES Status: Chronic Priority: Low Current Visit: No Annotation/Comment:: using CPAP machinge at night, will continue (28) Osteoarthritis SNOMED Code(s): 828724863 Code(s): M19.90 - UNSPECIFIED OSTEOARTHRITIS, UNSPECIFIED SITE Status: Chronic Priority: Medium Current Visit: No (29) Oxygen dependent SNOMED Code(s): 037711448635 Code(s): Z99.81 - DEPENDENCE ON SUPPLEMENTAL OXYGEN Status: Chronic Priority: High Current Visit: No (30) Old cerebrovascular accident (CVA) without late effect SNOMED Code(s): 653751522 Code(s): Z86.73 - PRSNL HX OF TIA (TIA), AND CEREB INFRC W/O RESID DEFICITS Status: Acute Priority: Medium Current Visit: Yes (31) Infarction of left basal ganglia SNOMED Code(s): 359925380 Code(s): I63.9 - CEREBRAL INFARCTION, UNSPECIFIED Status: Acute Priority : Medium Current Visit: Yes (32) Emphysema lung SNOMED Code(s): 26102262 Code(s): J43.9 - EMPHYSEMA, UNSPECIFIED Status: Acute Current Visit: Yes Qualifiers: Emphysema type: centrilobular Qualified Code(s): J43.2 - Centrilobular emphysema (33) Chronic cerebral ischemia SNOMED Code(s): 154876855 Code(s): I67.82 - CEREBRAL ISCHEMIA Status: Acute Priority: Medium Current Visit: Yes (34) Thrombocytopenia SNOMED Code(s): 243111500 Code(s): D69.6 - THROMBOCYTOPENIA, UNSPECIFIED Status: Acute Priority: High Current Visit: Yes (35) Hematochezia SNOMED Code(s): 836295877 Code(s): K92.1 - MELENA Status: Acute Priority: High Current Visit: Yes (36) Hemorrhoids SNOMED Code(s): 51961332 Code(s): K64.9 - UNSPECIFIED HEMORRHOIDS Status: Acute Current Visit: Yes Qualifiers: Hemorrhoid type: other Qualified Code(s): K64.8 - Other hemorrhoids - Problem List Review Problem List Initiated/Reviewed/Updated: Yes - My Orders Last 24 Hours: My Active Orders 10/17/18 20:00 Ciprofloxacin in D5W [Cipro in D5W 400 MG/200 ML] 400 mg Premix Bag 1 bag IV Q12HR 10/18/18 08:00 Furosemide [Lasix] 40 mg IVPUSH DAILY 10/18/18 16:00 Notify Provider Consults [RC] ASDIRECTED Consult to Physician [CONS] Routine 10/19/18 05:11 BASIC METABOLIC PANEL,BMP [CHEM] Routine CBC WITH AUTO DIFF [HEME] Routine CRP [C-REACTIVE PROTEIN] [CHEM] Routine 10/19/18 08:00 methylPREDNISolone Sod Succ [Solu-MEDROL] 40 mg IVPUSH DAILY - Plan Plan:: 10/16/18 Dusty Seaman MD Urine C&S from ER visit noted. Antibiotics adjusted. 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 10/17/18 Dusty Seaman MD Feeling better today. Getting stronger. No pain in the right knee today. Was able to bear weight on both legs today. Urine C&S Klebsiella pneumonia ESBL so on cipro. Lovenox was stopped yesterday due to CKD and thrombocytopenia. 10/18/18 Dusty Seaman MD Improving but had significant BRB per rectum x2 today. He denies pain. He does have a known history of hemrroids. Will monitor Hbg/Hct and consult surgeon. He needs continued inpatient status.
[2018-10-18] MEDS: Insulin Glarg,Human.Rec.Analog 100 UNIT/ML ML SUBCUT SCH (19:15)
[2018-10-19] MEDS: Furosemide 40 MG/4 ML VIAL IVPUSH SCH (07:25)
[2018-10-19] MEDS: Budesonide 0.5 MG/2 ML Neb Susp INH SCH (07:25)
[2018-10-19] MEDS: Albuterol/Ipratropium 3.0-0.5 MG/3 ML Neb Soln NEB SCH (07:25)
[2018-10-19] MEDS: Arformoterol 15 MCG/2 ML Neb Soln INH SCH (07:25)
[2018-10-19] MEDS: Ciprofloxacin in D5W 400 MG in Premix Bag 1 BAG IV SCH ×2 (07:26)
[2018-10-19 07:27] LABS: CHLORIDE,CL 102 mmol/L (98-107); SODIUM,NA 140 mmol/L (136-145)
[2018-10-19] MEDS: Sodium Chloride 0.9% 10 ML Syringe FLUSH SCH (07:27)
[2018-10-19] MEDS ORDERED: methylPREDNISolone Sodium Succinate 40 MG/1 ML SDV IVPUSH SCH (08:00)
[2018-10-19 11:38] VITALS: BP 150/66
--- NOTE | 2018-10-19 12:27 | PCM.OPNOTE ---
- General Post-Op/Procedure Note Date of Surgery/Procedure: 10/19/18 Findings: Interna Hemorrhoids Sig tics Pre Op Diagnosis: Hematochezia Post-Op Diagnosis: Same Anesthesia Technique: MAC Primary Surgeon: Eddie Marrero Anesthesia Provider: Blaire Samuel Complications: None Condition: Good Free Text/Narrative:: Intake & Output 10/18/18 10/19/18 10/19/18 22:59 06:59 14:59 Intake Total 640 500 Output Total [id number] Ezrquvv [phone]
[2018-10-19] MEDS ORDERED: Hydrocortisone Acetate 25 MG Supp RECTAL ONE (13:00)
[2018-10-19] MEDS: Cholecalciferol (Vitamin D3) 1,000 Unit Tab PO SCH (13:02)
[2018-10-19] MEDS: Omeprazole 20 MG Cap.CR PO SCH (13:03)
[2018-10-19] MEDS: Docusate Sodium 100 MG Cap PO SCH (13:04)
[2018-10-19] MEDS: Gabapentin 300 MG Cap PO SCH ×2 (13:04→13:06)
[2018-10-19] MEDS: Magnesium Oxide 400 MG Tab PO SCH (13:04)
[2018-10-19] MEDS: Cyanocobalamin (Vitamin B12) 1,000 MCG Tab PO SCH (13:04)
[2018-10-19] MEDS: Nystatin Topical Powder 15 GM Bottle TOP SCH ×2 (13:05→13:06)
[2018-10-19] MEDS: Isosorbide Mononitrate 60 MG Tab.ER PO SCH (13:05)
[2018-10-19] MEDS: Carvedilol 3.125 MG Tab PO SCH (13:07)
[2018-10-19] MEDS: Insulin Lispro 100 Units/ML 3 ML Vial SUBCUT SCH ×2 (13:09→13:10)
--- NOTE | 2018-10-19 13:17 | PCM.PN ---
- General Info Date of Service: 10/19/18 Admission Dx/Problem (Free Text): UTI Functional Status: Reports: Pain Controlled, Tolerating Diet - Review of Systems General: Reports: Weakness HEENT: Reports: No Symptoms Pulmonary: Reports: No Symptoms Cardiovascular: Reports: No Symptoms Gastrointestinal: Reports: Hematochezia Genitourinary: Reports: No Symptoms Musculoskeletal: Reports: No Symptoms Skin: Reports: No Symptoms Neurological: Reports: Difficulty Walking, Weakness Psychiatric: Reports: No Symptoms - Patient Data Vitals - Most Recent: Last Vital Signs Temp 98.2 F 10/19/18 11:37 Pulse 69 10/19/18 13:07 Resp 16 10/19/18 11:37 BP 150/66 H 10/19/18 13:07 Pulse Ox 99 10/19/18 11:37 Weight - Most Recent: 283 lb 15.992 oz I&O - Last 24 Hours: Intake & Output 10/18/18 10/19/18 10/19/18 22:59 06:59 14:59 Intake Total 640 500 Output Total 1050 2000 2350 Balance -410 -1500 -2350 Lab Results Last 24 Hours: Laboratory Results - last 24 hr 10/18/18 10/18/18 10/18/18 Range/Units 13:36 16:25 18:17 WBC (4.0-10.2) K/uL RBC (4.33-5.41) M/uL Hgb 9.1 L 8.9 L (13.1-16.8) g/dL Hct 28.1 L 27.6 L (39.0-49.0) % MCV (84.0-98.0) fL MCH (28.2-33.3) pg MCHC (31.7-36.0) g/dL RDW (11.2-14.1) % Plt Count (150-350) K/uL Neut % (Auto) (45.0-80.0) % Lymph % (Auto) (10.0-50.0) % [place] % (Auto) (2.0-14.0) % Eos % (Auto) (0.0-5.0) % Baso % (Auto) (0.0-2.0) % Neut # (Auto) (1.40-7.00) K/uL Lymph # (Auto) (0.50-3.50) K/uL [place] # (Auto) (0.00-1.00) K/uL Eos # (Auto) (0.00-0.50) K/uL Baso # (Auto) (0.00-0.20) K/uL Sodium (136-145) mmol/L Potassium (3.5-5.1) mmol/L Chloride (98-107) mmol/L Carbon Dioxide (21.0-32.0) mmol/L BUN (7-18) mg/dL Creatinine (0.51-1.17) mg/dL Est Cr Clr Drug Dosing mL/min Estimated GFR (MDRD) mL/min Glucose (74-106) mg/dL POC Glucose 268 H* (65-110) mg/dl Calcium (8.5-10.1) mg/dL C-Reactive Protein (<=0.9) mg/dL 10/19/18 10/19/18 10/19/18 Range/Units 06:50 06:50 07:00 WBC 9.8 (4.0-10.2) K/uL RBC 2.41 L (4.33-5.41) M/uL Hgb 8.7 L (13.1-16.8) g/dL Hct 26.8 L (39.0-49.0) % MCV 111.2 H (84.0-98.0) fL MCH 36.1 H (28.2-33.3) pg MCHC 32.5 (31.7-36.0) g/dL RDW 14.9 H (11.2-14.1) % Plt Count 116 L (150-350) K/uL Neut % (Auto) 64.2 (45.0-80.0) % Lymph % (Auto) 24.8 (10.0-50.0) % [place] % (Auto) 10.6 (2.0-14.0) % Eos % (Auto) 0.2 (0.0-5.0) % Baso % (Auto) 0.2 (0.0-2.0) % Neut # (Auto) 6.31 (1.40-7.00) K/uL Lymph # (Auto) 2.44 (0.50-3.50) K/uL [place] # (Auto) 1.04 H (0.00-1.00) K/uL Eos # (Auto) 0.02 (0.00-0.50) K/uL Baso # (Auto) 0.02 (0.00-0.20) K/uL Sodium 140 (136-145) mmol/L Potassium 4.0 (3.5-5.1) mmol/L Chloride 102 (98-107) mmol/L Carbon Dioxide 31.2 (21.0-32.0) mmol/L BUN 35 H (7-18) mg/dL Creatinine 0.87 (0.51-1.17) mg/dL Est Cr Clr Drug Dosing 71.83 mL/min Estimated GFR (MDRD) > 60 mL/min Glucose 140 H (74-106) mg/dL POC Glucose 140 H (65-110) mg/dl Calcium 8.7 (8.5-10.1) mg/dL C-Reactive Protein 4.5 H (<=0.9) mg/dL Med Orders - Current: Current Medications Acetaminophen (Tylenol) 650 mg PO Q4H PRN PRN Reason: Pain Last Admin: 10/18/18 08:35 Dose: 650 mg Albuterol/Ipratropium (Duoneb 3.0-0.5 Mg/3 Ml) 3 ml NEB TIDRT [facility] Last Admin: 10/19/18 07:25 Dose: 3 ml Arformoterol Tartrate (Brovana) 15 mcg INH BIDRT [facility] Last Admin: 10/19/18 07:25 Dose: 15 mcg Budesonide (Pulmicort) 0.5 mg INH BIDRT [facility] Last Admin: 10/19/18 07:25 Dose: 0.5 mg Calcium Carbonate/Glycine (Tums Extra Strength) 750 mg PO Q2HR PRN PRN Reason: Indigestion Last Admin: 10/14/18 21:35 Dose: 750 mg Carvedilol (Coreg) 9.375 mg PO BID [facility] Last Admin: 10/19/18 13:07 Dose: 9.375 mg Cholecalciferol (Vitamin D3) 1,000 units PO DAILY [facility] Last Admin: 10/19/18 13:02 Dose: 1,000 units Cyanocobalamin (Vitamin B12) 1,000 mcg PO DAILY [facility] Last Admin: 10/19/18 13:04 Dose: 1,000 mcg Docusate Sodium (Colace) 100 mg PO BID [facility] Last Admin: 10/19/18 13:04 Dose: 100 mg Furosemide (Lasix) 40 mg IVPUSH DAILY [facility] Last Admin: 10/19/18 07:25 Dose: 40 mg Gabapentin (Neurontin) 300 mg PO TID [facility] Last Admin: 10/19/18 13:06 Dose: Not Given Hydrocortisone Acetate (Anucort-Hc) 25 mg RECTAL BID [facility] Ciprofloxacin/Dextrose 400 mg/ (Premix) 200 mls @ 200 mls/hr IV Q12HR [facility] Last Admin: 10/19/18 07:26 Dose: 200 mls/hr Insulin Glargine (Lantus) 20 unit SUBCUT BEDTIME [facility] Last Admin: 10/18/18 19:15 Dose: 20 units Insulin Human Lispro (Humalog) 8 unit SUBCUT TID [facility] Last Admin: 10/19/18 13:10 Dose: 8 units Isosorbide Mononitrate (Imdur) 60 mg PO DAILY [facility] Last Admin: 10/19/18 13:05 Dose: 60 mg Magnesium Oxide (Magnesium Oxide) 400 mg PO BID [facility] Last Admin: 10/19/18 13:04 Dose: 400 mg Methylprednisolone Sodium Succinate (Solu-Medrol) 40 mg IVPUSH DAILY [facility] Last Admin: 10/19/18 07:25 Dose: 40 mg Nystatin (Nystop) 0 gm TOP TID [facility] Last Admin: 10/19/18 13:06 Dose: Not Given Omeprazole (Omeprazole) 20 mg PO BIDAC [facility] Last Admin: 10/19/18 13:03 Dose: 20 mg Sodium Chloride (Saline Flush) 10 ml FLUSH ASDIRECTED PRN PRN Reason: Keep Vein Open Last Admin: 10/18/18 19:17 Dose: 10 ml Sodium Chloride (Saline Flush) 10 ml FLUSH Q12HR [facility] Last Admin: 10/19/18 07:27 Dose: 10 ml Discontinued Medications Allopurinol (Zyloprim) 300 mg PO DAILY [facility] Last Admin: 10/16/18 07:50 Dose: 300 mg Carvedilol (Coreg) 9.375 mg PO BIDMEALS [facility] Last Admin: 10/16/18 07:50 Dose: 9.375 mg Enoxaparin Sodium (Lovenox) 40 mg SUBCUT DAILY [facility] Last Admin: 10/16/18 07:51 Dose: 40 mg Furosemide (Lasix) 40 mg PO DAILY [facility] Last Admin: 10/16/18 07:51 Dose: 40 mg Furosemide (Lasix) 40 mg IVPUSH NOW ONE Stop: 10/17/18 13:01 Last Admin: 10/17/18 13:33 Dose: 40 mg Hydrocortisone Acetate (Anucort-Hc) 25 mg RECTAL ONETIME ONE Stop: 10/19/18 13:01 Last Admin: 10/19/18 13:09 Dose: 25 mg Meropenem 1 gm/ Sodium (Chloride) 100 mls @ 200 mls/hr IV Q8H [facility] Last Admin: 10/14/18 14:26 Dose: 200 mls/hr Piperacillin Sod/Tazobactam (Sod 3.375 gm/ Sodium Chloride) 100 mls @ 200 mls/ hr IV Q6H [facility] Last Admin: 10/14/18 15:12 Dose: 200 mls/hr Meropenem 1 gm/ Sodium (Chloride) 100 mls @ 200 mls/hr IV Q8H [facility] Last Admin: 10/16/18 21:38 Dose: 200 mls/hr Piperacillin Sod/Tazobactam (Sod 3.375 gm/ Sodium Chloride) 100 mls @ 200 mls/ hr IV Q6H [facility] Last Admin: 10/16/18 13:25 Dose: 200 mls/hr Sodium Chloride (Normal Saline) 1,000 mls @ 100 mls/hr IV ASDIRECTED [facility] Last Admin: 10/16/18 07:42 Dose: 100 mls/hr Levofloxacin/Dextrose 500 mg/ (Premix) 100 mls @ 100 mls/hr IV ONETIME ONE Stop: 10/17/18 08:59 Levofloxacin/Dextrose 250 mg/ (Premix) 50 mls @ 50 mls/hr IV Q24H [facility] Ciprofloxacin/Dextrose 400 mg/ (Premix) 200 mls @ 200 mls/hr IV ONETIME ONE Stop: 10/17/18 06:59 Last Admin: 10/17/18 06:08 Dose: 200 mls/hr Ciprofloxacin/Dextrose 200 mg/ (Premix) 100 mls @ 100 mls/hr IV Q12HR [facility] Ibuprofen (Motrin) 400 mg PO Q6H PRN PRN Reason: Fever Last Admin: 10/14/18 17:48 Dose: 400 mg Insulin Glargine (Lantus) 0 unit SUBCUT BEDTIME [facility] Last Admin: 10/15/18 20:09 Dose: 20 units Insulin Human Lispro (Humalog) 0 unit SUBCUT TID [facility] Last Admin: 10/15/18 11:36 Dose: 8 unit Insulin Human Lispro (Humalog) 20 unit SUBCUT ONETIME ONE Stop: 10/15/18 18:01 Last Admin: 10/15/18 18:01 Dose: 20 units Insulin Human Lispro (Humalog) 0 unit SUBCUT TID [facility] Last Admin: 10/16/18 07:47 Dose: 8 units Insulin Human NPH (Humulin N) 20 unit SQ ONETIME ONE Stop: 10/16/18 15:31 Last Admin: 10/16/18 15:35 Dose: 20 unit Insulin Human NPH (Humulin N) 10 unit SQ ONETIME ONE Stop: 10/17/18 12:31 Last Admin: 10/17/18 12:36 Dose: 10 unit Insulin Human NPH (Humulin N) 20 unit SQ ONETIME ONE Stop: 10/18/18 08:01 Last Admin: 10/18/18 08:42 Dose: 20 unit Methylprednisolone Sodium Succinate (Solu-Medrol) 60 mg IVPUSH Q6H [facility] Last Admin: 10/16/18 13:14 Dose: Not Given Methylprednisolone Sodium Succinate (Solu-Medrol) 60 mg IVPUSH DAILY [facility] Last Admin: 10/18/18 08:39 Dose: 60 mg - Exam Quality Assessment: Central Line/PICC (being discontinued now prior to transfer to [facility]), Urine Catheter General: Alert, Oriented, Cooperative HEENT: EOMI, Mucous Membr. Moist/[place] Neck: Supple, Trachea Midline Lungs: Normal Respiratory Effort, Decreased Breath Sounds Cardiovascular: Regular Rate, Regular Rhythm GI/Abdominal Exam: Normal Bowel Sounds, Soft, Non-Tender, Other (hemorrhoids) (Male) Exam: Other (Rodarte catheter) Back Exam: Normal Inspection Extremities: Pedal Edema (chronic, leg wraps on) Skin: Warm, Dry, Intact, Ecchymosis (chronic to hands/forearms) Neurological: No New Focal Deficit Psy/Mental Status: Alert, Normal Affect, Normal Mood - Problem List Review Problem List Initiated/Reviewed/Updated: Yes - My Orders Last 24 Hours: My Active Orders 10/19/18 18:00 Hydrocortisone Acetate [Anucort-HC] 25 mg RECTAL BID - Plan Plan:: 10/16/18 Dusty Seaman MD Urine C&S from ER visit noted. Antibiotics adjusted. 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 10/17/18 Dusty Seaman MD Feeling better today. Getting stronger. No pain in the right knee today. Was able to bear weight on both legs today. Urine C&S Klebsiella pneumonia ESBL so on cipro. Lovenox was stopped yesterday due to CKD and thrombocytopenia. 10/18/18 Dusty Seaman MD Improving but had significant BRB per rectum x2 today. He denies pain. He does have a known history of hemrroids. Will monitor Hbg/Hct and consult surgeon. He needs continued inpatient status. 10-19-18 Nate Darling PA-C This forenoon underwent flex sig by Dr. Eddie Marrero which found the known hemorrhoids, as well as diverticulosis. No other concerning process. One Anusol HC suppository given R now, then ordered the same BID and will continue for two weeks. Consult with Dr. Dusty Seaman earlier today, will transfer to [facility] now. PICC line DC'd, will continue po Cipro. Also po Lasix and prednisone. He is scheduled next week with Dr. Kessler for consult. Labs next week, follow at [facility] with Dr. Montano and/or ALYSHA Hughes.
--- NOTE | 2018-10-19 13:49 | PCM.DCSUM1 ---
Discharge Summary - Hospital Course HPI Initial Comments: Had been admitted to status for acute UTI. Diagnosis: Stroke: No - Discharge Data Discharge Date: 10/19/18 Discharge Disposition: DC/Tfer to SNF 03 Condition: Fair - Patient Summary/Data Operative Procedure(s) Performed: Flexible Sigmoidoscopy 10-19-18. Consults: Consultations 10/16/18 09:46 OT Evaluation and Treatment [CONS] Routine PT Evaluation and Treatment [CONS] Routine 10/18/18 16:00 Consult to Physician [CONS] Routine Hospital Course: Patient has responded to antibiotic therapy after meds adjusted according to C& S. Did have flex sig today due to hematochezia. - Patient Instructions Diet: Diabetic Diet Activity: As Tolerated Driving: Do Not Drive Showering/Bathing: May Shower Other/Special Instructions: PT-OT consults for strengthening. CBC and BMP next week on day. Urology consult with Dr. Kessler next week on Tuesday. Follow up on next rounds with ALYSHA Hughes or Dr. Dusty Seaman. - Discharge Plan *PRESCRIPTION DRUG MONITORING PROGRAM REVIEWED*: Not Applicable *COPY OF PRESCRIPTION DRUG MONITORING REPORT IN PATIENT SG: Not Applicable Prescriptions/Med Rec: Ciprofloxacin HCl [Cipro] 500 mg PO BID #20 tablet Hydrocortisone Acetate [Anucort-HC] 25 mg RECTAL BID #28 supp Nystatin [Nystop] 1 applic TOP TID #1 bottle predniSONE 40 mg PO WITHBREAKFAST #30 tab Home Medications: Home Meds Arformoterol [Brovana] 2 ml INH BID 05/04/14 [History] Budesonide [Pulmicort] 2 ml INH BID 05/04/14 [History] Furosemide 40 mg PO DAILY 05/04/14 [History] Gabapentin [Neurontin] 300 mg PO TID 05/04/14 [History] Multivitamin [Multivitamins] 1 tab PO DAILY 05/04/14 [History] Omeprazole 20 mg PO BID 05/04/14 [History] Isosorbide Mononitrate [Imdur] 60 mg PO DAILY 10/26/16 [History] Allopurinol [Zyloprim] 300 mg PO QAM 06/13/17 [History] Cholecalciferol (Vitamin D3) [Vitamin D3] 1,000 unit PO DAILY 06/13/17 [History] Docusate Sodium [Colace] 100 mg PO BID 12/28/17 [History] Cyanocobalamin (Vitamin B-12) [Vitamin B-12] 1,000 mcg SL DAILY #100 tab.subl [Rx] Acetaminophen [Tylenol] 650 mg PO Q4H PRN 05/13/18 [History] Albuterol/Ipratropium [DuoNeb 3.0-0.5 MG/3 ML] 3 ml NEB TID 05/13/18 [History] Carvedilol 3 tab PO BIDMEALS 05/13/18 [History] Magnesium Oxide [Magnesium] 400 mg PO BID 05/13/18 [History] Tamsulosin HCl [Flomax] 0.4 mg PO DAILY 06/13/18 [History] Ferrous Sulfate 325 mg PO BID tablet 06/19/18 [Rx] Insulin Detemir [Levemir Flextouch] 20 units SUBCUT BEDTIME #1 06/19/18 [Rx] Insulin Aspart [NovoLOG] 8 unit SQ TID@0800,1200,1800 09/03/18 [History] Polyvinyl Alcohol [LiquiTears 1.4% Ophth Soln] 1 ml EYEBOTH TID@0800,1200,2000 09/03/18 [History] Ciprofloxacin HCl [Cipro] 500 mg PO BID #20 tablet 10/19/18 [Rx] Hydrocortisone Acetate [Anucort-HC] 25 mg RECTAL BID #28 supp 10/19/18 [Rx] Nystatin [Nystop] 1 applic TOP TID #1 bottle 10/19/18 [Rx] predniSONE 40 mg PO WITHBREAKFAST #30 tab 10/19/18 [Rx] Oxygen Therapy Mode: Nasal Cannula Oxygen Flow Rate (L/min): 2.5 Patient Handouts: Urinary Tract Infection, Adult, [id number] Forms: ED Department Discharge Referrals: Astrid Damon NP [Primary Care Provider] - Ricky Kessler MD [Physician] - - Discharge Summary/Plan Comment DC Time >30 min.: Yes Discharge Summary/Plan Comment: Transferring for admit to [facility]. Continuing po Cipro for ten more days. Labs ordered for next week. PT-OT consult for strengthening. Consult with Dr. Kessler next Tuesday, and will follow up with ALYSHA Felder or Dr. Dusty Seaman on next rounds. - Patient Data Vitals - Most Recent: Last Vital Signs Temp 98.2 F 10/19/18 11:37 Pulse 69 10/19/18 13:07 Resp 16 10/19/18 11:37 BP 150/66 H 10/19/18 13:07 Pulse Ox 99 10/19/18 11:37 Weight - Most Recent: 283 lb 15.992 oz I&O - Last 24 hours: Intake & Output 10/18/18 10/19/18 10/19/18 22:59 06:59 14:59 Intake Total 640 500 Output Total 1050 1999 2350 Balance -410 1500 -2140 Lab Results - Last 24 hrs: Laboratory Results - last 24 hr 10/18/18 10/18/18 10/18/18 Range/Units 13:36 16:25 18:17 WBC (4.0-10.2) K/uL RBC (4.33-5.41) M/uL Hgb 9.1 L 8.9 L (13.1-16.8) g/dL Hct 28.1 L 27.6 L (39.0-49.0) % MCV (84.0-98.0) fL MCH (28.2-33.3) pg MCHC (31.7-36.0) g/dL RDW (11.2-14.1) % Plt Count (150-350) K/uL Neut % (Auto) (45.0-80.0) % Lymph % (Auto) (10.0-50.0) % [place] % (Auto) (2.0-14.0) % Eos % (Auto) (0.0-5.0) % Baso % (Auto) (0.0-2.0) % Neut # (Auto) (1.40-7.00) K/uL Lymph # (Auto) (0.50-3.50) K/uL [place] # (Auto) (0.00-1.00) K/uL Eos # (Auto) (0.00-0.50) K/uL Baso # (Auto) (0.00-0.20) K/uL Sodium (136-145) mmol/L Potassium (3.5-5.1) mmol/L Chloride (98-107) mmol/L Carbon Dioxide (21.0-32.0) mmol/L BUN (7-18) mg/dL Creatinine (0.51-1.17) mg/dL Est Cr Clr Drug Dosing mL/min Estimated GFR (MDRD) mL/min Glucose (74-106) mg/dL POC Glucose 268 H* (65-110) mg/dl Calcium (8.5-10.1) mg/dL C-Reactive Protein (<=0.9) mg/dL 10/19/18 10/19/18 10/19/18 Range/Units 06:50 06:50 07:00 WBC 9.8 (4.0-10.2) K/uL RBC 2.41 L (4.33-5.41) M/uL Hgb 8.7 L (13.1-16.8) g/dL Hct 26.8 L (39.0-49.0) % MCV 111.2 H (84.0-98.0) fL MCH 36.1 H (28.2-33.3) pg MCHC 32.5 (31.7-36.0) g/dL RDW 14.9 H (11.2-14.1) % Plt Count 116 L (150-350) K/uL Neut % (Auto) 64.2 (45.0-80.0) % Lymph % (Auto) 24.8 (10.0-50.0) % [place] % (Auto) 10.6 (2.0-14.0) % Eos % (Auto) 0.2 (0.0-5.0) % Baso % (Auto) 0.2 (0.0-2.0) % Neut # (Auto) 6.31 (1.40-7.00) K/uL Lymph # (Auto) 2.44 (0.50-3.50) K/uL [place] # (Auto) 1.04 H (0.00-1.00) K/uL Eos # (Auto) 0.02 (0.00-0.50) K/uL Baso # (Auto) 0.02 (0.00-0.20) K/uL Sodium 140 (136-145) mmol/L Potassium 4.0 (3.5-5.1) mmol/L Chloride 102 (98-107) mmol/L Carbon Dioxide 31.2 (21.0-32.0) mmol/L BUN 35 H (7-18) mg/dL Creatinine 0.87 (0.51-1.17) mg/dL Est Cr Clr Drug Dosing 71.83 mL/min Estimated GFR (MDRD) > 60 mL/min Glucose 140 H (74-106) mg/dL POC Glucose 140 H (65-110) mg/dl Calcium 8.7 (8.5-10.1) mg/dL C-Reactive Protein 4.5 H (<=0.9) mg/dL Med Orders - Current: Current Medications Acetaminophen (Tylenol) 650 mg PO Q4H PRN PRN Reason: Pain Last Admin: 10/18/18 08:35 Dose: 650 mg Albuterol/Ipratropium (Duoneb 3.0-0.5 Mg/3 Ml) 3 ml NEB TIDRT [facility] Last Admin: 10/19/18 07:25 Dose: 3 ml Arformoterol Tartrate (Brovana) 15 mcg INH BIDRT [facility] Last Admin: 10/19/18 07:25 Dose: 15 mcg Budesonide (Pulmicort) 0.5 mg INH BIDRT [facility] Last Admin: 10/19/18 07:25 Dose: 0.5 mg Calcium Carbonate/Glycine (Tums Extra Strength) 750 mg PO Q2HR PRN PRN Reason: Indigestion Last Admin: 10/14/18 21:35 Dose: 750 mg Carvedilol (Coreg) 9.375 mg PO BID [facility] Last Admin: 10/19/18 13:07 Dose: 9.375 mg Cholecalciferol (Vitamin D3) 1,000 units PO DAILY [facility] Last Admin: 10/19/18 13:02 Dose: 1,000 units Cyanocobalamin (Vitamin B12) 1,000 mcg PO DAILY [facility] Last Admin: 10/19/18 13:04 Dose: 1,000 mcg Docusate Sodium (Colace) 100 mg PO BID [facility] Last Admin: 10/19/18 13:04 Dose: 100 mg Furosemide (Lasix) 40 mg IVPUSH DAILY [facility] Last Admin: 10/19/18 07:25 Dose: 40 mg Gabapentin (Neurontin) 300 mg PO TID [facility] Last Admin: 10/19/18 13:06 Dose: Not Given Hydrocortisone Acetate (Anucort-Hc) 25 mg RECTAL BID [facility] Ciprofloxacin/Dextrose 400 mg/ (Premix) 200 mls @ 200 mls/hr IV Q12HR [facility] Last Admin: 10/19/18 07:26 Dose: 200 mls/hr Insulin Glargine (Lantus) 20 unit SUBCUT BEDTIME [facility] Last Admin: 10/18/18 19:15 Dose: 20 units Insulin Human Lispro (Humalog) 8 unit SUBCUT TID [facility] Last Admin: 10/19/18 13:10 Dose: 8 units Isosorbide Mononitrate (Imdur) 60 mg PO DAILY [facility] Last Admin: 10/19/18 13:05 Dose: 60 mg Magnesium Oxide (Magnesium Oxide) 400 mg PO BID [facility] Last Admin: 10/19/18 13:04 Dose: 400 mg Methylprednisolone Sodium Succinate (Solu-Medrol) 40 mg IVPUSH DAILY [facility] Last Admin: 10/19/18 07:25 Dose: 40 mg Nystatin (Nystop) 0 gm TOP TID COUNT [facility] Last Admin: 10/19/18 13:06 Dose: Not Given Omeprazole (Omeprazole) 20 mg PO BIDAC COUNT [facility]CLUD[facility] Last Admin: 10/19/18 13:03 Dose: 20 mg Sodium Chloride (Saline Flush) 10 ml FLUSH ASDIRECTED PRN PRN Reason: Keep Vein Open Last Admin: 10/18/18 19:17 Dose: 10 ml Sodium Chloride (Saline Flush) 10 ml FLUSH Q12HR [facility] Last Admin: 10/19/18 07:27 Dose: 10 ml Discontinued Medications Allopurinol (Zyloprim) 300 mg PO DAILY [facility] Last Admin: 10/16/18 07:50 Dose: 300 mg Carvedilol (Coreg) 9.375 mg PO BIDMEALS COUNT [facility]CLUD[facility] Last Admin: 10/16/18 07:50 Dose: 9.375 mg Enoxaparin Sodium (Lovenox) 40 mg SUBCUT DAILY [facility] Last Admin: 10/16/18 07:51 Dose: 40 mg Furosemide (Lasix) 40 mg PO DAILY [facility] Last Admin: 10/16/18 07:51 Dose: 40 mg Furosemide (Lasix) 40 mg IVPUSH NOW ONE Stop: 10/17/18 13:01 Last Admin: 10/17/18 13:33 Dose: 40 mg Hydrocortisone Acetate (Anucort-Hc) 25 mg RECTAL ONETIME ONE Stop: 10/19/18 13:01 Last Admin: 10/19/18 13:09 Dose: 25 mg Meropenem 1 gm/ Sodium (Chloride) 100 mls @ 200 mls/hr IV Q8H COUNT [facility]CLUD[facility] Last Admin: 10/14/18 14:26 Dose: 200 mls/hr Piperacillin Sod/Tazobactam (Sod 3.375 gm/ Sodium Chloride) 100 mls @ 200 mls/ hr IV Q6H COUNT [facility]CLUD[facility] Last Admin: 10/14/18 15:12 Dose: 200 mls/hr Meropenem 1 gm/ Sodium (Chloride) 100 mls @ 200 mls/hr IV Q8H COUNT [facility]CLUD[facility] Last Admin: 10/16/18 21:38 Dose: 200 mls/hr Piperacillin Sod/Tazobactam (Sod 3.375 gm/ Sodium Chloride) 100 mls @ 200 mls/ hr IV Q6H COUNT INCLUDES THE [facility] Last Admin: 10/16/18 13:25 Dose: 200 mls/hr Sodium Chloride (Normal Saline) 1,000 mls @ 100 mls/hr IV ASDIRECTED COUNT INCLUDES THE [facility] Last Admin: 10/16/18 07:42 Dose: 100 mls/hr Levofloxacin/Dextrose 500 mg/ (Premix) 100 mls @ 100 mls/hr IV ONETIME ONE Stop: 10/17/18 08:59 Levofloxacin/Dextrose 250 mg/ (Premix) 50 mls @ 50 mls/hr IV Q24H COUNT INCLUDES THE [facility] Ciprofloxacin/Dextrose 400 mg/ (Premix) 200 mls @ 200 mls/hr IV ONETIME ONE Stop: 10/17/18 06:59 Last Admin: 10/17/18 06:08 Dose: 200 mls/hr Ciprofloxacin/Dextrose 200 mg/ (Premix) 100 mls @ 100 mls/hr IV Q12HR COUNT INCLUDES THE [facility] Ibuprofen (Motrin) 400 mg PO Q6H PRN PRN Reason: Fever Last Admin: 10/14/18 17:48 Dose: 400 mg Insulin Glargine (Lantus) 0 unit SUBCUT BEDTIME COUNT INCLUDES THE [facility] Last Admin: 10/15/18 20:09 Dose: 20 units Insulin Human Lispro (Humalog) 0 unit SUBCUT TID COUNT INCLUDES THE [facility] Last Admin: 10/15/18 11:36 Dose: 8 unit Insulin Human Lispro (Humalog) 20 unit SUBCUT ONETIME ONE Stop: 10/15/18 18:01 Last Admin: 10/15/18 18:01 Dose: 20 units Insulin Human Lispro (Humalog) 0 unit SUBCUT TID COUNT INCLUDES THE [facility] Last Admin: 10/16/18 07:47 Dose: 8 units Insulin Human NPH (Humulin N) 20 unit SQ ONETIME ONE Stop: 10/16/18 15:31 Last Admin: 10/16/18 15:35 Dose: 20 unit Insulin Human NPH (Humulin N) 10 unit SQ ONETIME ONE Stop: 10/17/18 12:31 Last Admin: 10/17/18 12:36 Dose: 10 unit Insulin Human NPH (Humulin N) 20 unit SQ ONETIME ONE Stop: 10/18/18 08:01 Last Admin: 10/18/18 08:42 Dose: 20 unit Methylprednisolone Sodium Succinate (Solu-Medrol) 60 mg IVPUSH Q6H COUNT INCLUDES THE [facility] Last Admin: 10/16/18 13:14 Dose: Not Given Methylprednisolone Sodium Succinate (Solu-Medrol) 60 mg IVPUSH DAILY COUNT INCLUDES THE [facility] Last Admin: 10/18/18 08:39 Dose: 60 mg
[2018-10-19] MEDS ORDERED: Hydrocortisone Acetate 25 MG Supp RECTAL SCH (18:00)
--- NOTE | 2018-10-20 10:32 | OR ---
Date of Procedure: 10/19/2018 PREOPERATIVE DIAGNOSIS: Hematochezia. POSTOPERATIVE DIAGNOSES: 1. Internal hemorrhoids with recent bleeding. 2. Sigmoid diverticulosis. PROCEDURE: Sigmoidoscopy. DESCRIPTION OF PROCEDURE: The patient was brought to the procedure room where he was placed on his left side and IV sedation administered. Digital rectal exam reveals enlarged hemorrhoids circumferentially. There was evidence of some bloody mucus around the perianal skin. No palpable abnormalities were present. Colonoscope was inserted and retroflexion does reveal some inflamed internal hemorrhoids with evidence of recent bleeding, but no active bleeding. I was able to advance the scope to 30 cm at which time, there was formed stool present that I could not go past. Sigmoid diverticulosis was noted. There was no blood up higher in the stool or on the mucosal surfaces. Air was removed and the scope withdrawn. The patient tolerated the procedure well and returned to his room in stable condition. SYLVIA CANTRELL MD /[id number]
== END 2018-10-19 14:30 | DRG 699 ==
LOC: LL.ED 10:50 → LL.MS 12:13
PROVIDERS: ADMIT Family Medicine; ATTEND Family Medicine
PROC: 0DJD8ZZ Inspection of Lower Intestinal Tract, Via Natural or Artificial Opening Endoscopic (ICD-10-PCS; principal; 2018-10-19)
DX: T83.511A Infection and inflammatory reaction due to indwelling urethral catheter, initial encounter (principal); J96.11 Chronic respiratory failure with hypoxia; I13.0 Hypertensive heart and chronic kidney disease with heart failure and stage 1 through stage 4 chronic kidney disease, or unspecified chronic kidney disease; Z66 Do not resuscitate; Z51.5 Encounter for palliative care; K64.8 Other hemorrhoids; K57.30 Diverticulosis of large intestine without perforation or abscess without bleeding; F95.8 Other tic disorders; H91.90 Unspecified hearing loss, unspecified ear; H54.7 Unspecified visual loss; H35.30 Unspecified macular degeneration; E11.319 Type 2 diabetes mellitus with unspecified diabetic retinopathy without macular edema; H91.13 Presbycusis, bilateral; I25.10 Atherosclerotic heart disease of native coronary artery without angina pectoris; E78.00 Pure hypercholesterolemia, unspecified; I10 Essential (primary) hypertension; E11.51 Type 2 diabetes mellitus with diabetic peripheral angiopathy without gangrene; I07.1 Rheumatic tricuspid insufficiency; K59.09 Other constipation; K21.9 Gastro-esophageal reflux disease without esophagitis; N40.0 Benign prostatic hyperplasia without lower urinary tract symptoms; I50.9 Heart failure, unspecified; N18.9 Chronic kidney disease, unspecified; E11.22 Type 2 diabetes mellitus with diabetic chronic kidney disease; M19.91 Primary osteoarthritis, unspecified site; G89.29 Other chronic pain; M54.9 Dorsalgia, unspecified; M81.0 Age-related osteoporosis without current pathological fracture; E11.42 Type 2 diabetes mellitus with diabetic polyneuropathy; B96.1 Klebsiella pneumoniae [K. pneumoniae] as the cause of diseases classified elsewhere; Z16.12 Extended spectrum beta lactamase (ESBL) resistance; D69.6 Thrombocytopenia, unspecified; M25.461 Effusion, right knee; R33.9 Retention of urine, unspecified; D50.9 Iron deficiency anemia, unspecified; E78.5 Hyperlipidemia, unspecified; M10.9 Gout, unspecified; E66.9 Obesity, unspecified; G47.33 Obstructive sleep apnea (adult) (pediatric); J43.9 Emphysema, unspecified; R70.0 Elevated erythrocyte sedimentation rate; Z79.4 Long term (current) use of insulin; Z88.8 Allergy status to other drugs, medicaments and biological substances; Z86.010 Personal history of colon polyps; Z87.11 Personal history of peptic ulcer disease; Z85.89 Personal history of malignant neoplasm of other organs and systems; Z98.42 Cataract extraction status, left eye; Z98.41 Cataract extraction status, right eye; S80.11XD Contusion of right lower leg, subsequent encounter; W19.XXXD Unspecified fall, subsequent encounter; Z86.73 Personal history of transient ischemic attack (TIA), and cerebral infarction without residual deficits; Z99.81 Dependence on supplemental oxygen; Z68.39 Body mass index [BMI] 39.0-39.9, adult
CPT/HCPCS: 00811; 36415; 36569; 70450; 80048; 80053; 82378; 82962; 83605; 83735; 84550; 85014; 85018; 85025; 85379; 85610; 85652; 85730; 86140; 94640; 97110-GO; 97110-GP; 97116-GP; 97163-GP; 97165-GO; 97530-GO; 97530-GP; 99285-25; A9270-GY; C1751; J0744; J1650; J1815; J1815-GY; J1940; J2185; J2543; J2920; J2930; J7030; J7050; J7620-GY

== ENCOUNTER 2018-11-27 20:36 | Emergency (ER) | payer MEDICARE, BC ==
[2018-11-27] MEDS ORDERED: Sodium Chloride 0.9% 10 ML Syringe FLUSH PRN (20:45)
[2018-11-27] MEDS ORDERED: Famotidine 20 MG/2 ML SDV IVPUSH ONE (20:45)
[2018-11-27] MEDS ORDERED: Pantoprazole 40 MG Vial IVPUSH ONE (20:45)
--- NOTE | 2018-11-27 20:45 | EDM.PDOC ---
ED HPI GENERAL MEDICAL PROBLEM - General Chief Complaint: Gastrointestinal Problem Stated Complaint: bloody stool Time Seen by Provider: 11/27/18 20:36 Source of Information: Reports: Patient, Family (), [facility]dc Records, Old Records ([facility] chart/EMR) History Limitations: Reports: No Limitations - History of Present Illness INITIAL COMMENTS - FREE TEXT/NARRATIVE: The patient was brought to the emergency room via transport vehicle from [facility] for evaluation of progressive moderate to severe gross hematochezia and melena with symptoms starting about 3 days ago. Only limited history obtained from the shelter with patient a somewhat poor historian secondary to his current symptoms and mild lethargy. He does complain of nonspecific diffuse abdominal pain with no nausea, emesis, hematemesis, etc. The patient denies any chest pain/pressure, heart flutter, dizziness, orthostasis, orthopnea, diaphoresis, paresthesias, recent decreased exercise tolerance, or any other anginal-type symptoms. The patient also denies any recent fever, cough, wheezing, dyspnea, etc.. Note moderate hypertension prior to patient's transfer with blood pressure of 69/44 and O2 sat of 95% on 2 L/m. No treatment prior to patient's arrival to this facility. Onset: Gradual Onset Date: 11/24/18 Duration: Getting Worse Location: Reports: Abdomen. Denies: Head, Face, Neck, Chest, Back, Upper Extremity, Left, Upper Extremity, Right, Radiates to Quality: Reports: Ache, Same as Previous Episode Severity: Mild Improves with: Reports: None Worsens with: Reports: None Context: Denies: Sick Contact, Trauma Associated Symptoms: Reports: Confusion. Denies: Chest Pain, Cough, Diaphoresis , Fever/Chills, Headaches, Loss of Appetite, Malaise, Nausea/Vomiting, Shortness of Breath, Syncope, Weakness, Other Treatments ELECTRICIAN THIRD: Reports: Other (see below) (None) - Related Data Allergies Allergy/AdvReac Type Severity Reaction Status Date / Time celecoxib Allergy Cannot Verified 10/14/18 11:02 Remember diltiazem Allergy Cannot Verified 10/14/18 11:02 Remember Tmmjfta-[id number]-Myq Reductase Allergy Muscle Verified 10/14/18 11:02 Inhibitor Aches tiotropium bromide Allergy URINARY Verified 10/14/18 11:02 [From [facility] with RETENTION [facility]] Home Meds: Home Meds Arformoterol [Brovana] 2 ml INH BID 05/04/14 [History] Budesonide [Pulmicort] 2 ml INH BID 05/04/14 [History] Furosemide 40 mg PO DAILY 05/04/14 [History] Gabapentin [Neurontin] 300 mg PO TID 05/04/14 [History] Multivitamin [Multivitamins] 1 tab PO DAILY 05/04/14 [History] Omeprazole 20 mg PO BID 05/04/14 [History] Isosorbide Mononitrate [Imdur] 60 mg PO DAILY 10/26/16 [History] Allopurinol [Zyloprim] 300 mg PO QAM 06/13/17 [History] Cholecalciferol (Vitamin D3) [Vitamin D3] 1,000 unit PO DAILY 06/13/17 [History] Docusate Sodium [Colace] 100 mg PO BID 12/28/17 [History] Cyanocobalamin (Vitamin B-12) [Vitamin B-12] 1,000 mcg SL DAILY #100 tab.subl [Rx] Acetaminophen [Tylenol] 650 mg PO Q4H PRN 05/13/18 [History] Albuterol/Ipratropium [DuoNeb 3.0-0.5 MG/3 ML] 3 ml NEB TID 05/13/18 [History] Carvedilol 3 tab PO BIDMEALS 05/13/18 [History] Magnesium Oxide [Magnesium] 400 mg PO BID 05/13/18 [History] Tamsulosin HCl [Flomax] 0.4 mg PO DAILY 06/13/18 [History] Ferrous Sulfate 325 mg PO BID tablet 06/19/18 [Rx] Insulin Detemir [Levemir Flextouch] 20 units SUBCUT BEDTIME #1 06/19/18 [Rx] Insulin Aspart [NovoLOG] 8 unit SQ TID@0800,1200,1800 09/03/18 [History] Polyvinyl Alcohol [LiquiTears 1.4% Ophth Soln] 1 ml EYEBOTH TID@0800,1200,2000 09/03/18 [History] Ciprofloxacin HCl [Cipro] 500 mg PO BID #20 tablet 10/19/18 [Rx] Hydrocortisone Acetate [Anucort-HC] 25 mg RECTAL BID #28 supp 10/19/18 [Rx] Nystatin [Nystop] 1 applic TOP TID #1 bottle 10/19/18 [Rx] predniSONE 40 mg PO WITHBREAKFAST #30 tab 10/19/18 [Rx] Past Medical History HEENT History: Reports: Cataract, Hard of Hearing, Impaired Vision, Macular Degeneration, Other (See Below). 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 Left atrial enlargement Respiratory History: Reports: Bronchitis, Recurrent, COPD, Intubation, Previous , Pneumonia, Recurrent, Pulmonary Fibrosis, Sleep Apnea, Other (See Below). 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 Denies: Celiac Disease, Cholelithiasis, Fecal Incontinence, Hepatitis, Inflammatory Bowel Disease Other Gastrointestinal History: Lower GI bleed in October 2018 possibly secondary to hemorrhoids? Severe diverticulosis of the descending colon by colonoscopy on 09/25/09, GERD with history of esophagitis and upper GI bleed on 09/20/09, peptic ulcer and duodenitis by EGD with previously treated H. pylori, umbilical hernia , benign hepatic cysts by CT scan on 05/26/98 Genitourinary History: Reports: Acute Renal Failure, BPH, Chronic Renal Insuffiency, Diabetic Nephropathy, Prostate Disorder, Renal Disease, Retention, Urinary, UTI, Recurrent, Other (See Below). Denies: Renal Calculus, STD Other Genitourinary History: Acute renal failure with secondary hypotension secondary to NSAIDs use on 10/01/14, BPH with history of PSA elevation, end- stage renal disease-stage III, erectile dysfunction Musculoskeletal History: Reports: Arthritis, Back Pain, Chronic, Fracture, Gout , Neck Pain, Chronic, Osteoarthritis, Osteoporosis, Other (See Below). Denies: Amputation, RA, SLE Other Musculoskeletal History: Spinal stenosis at L4-5 with disc prolapse, positive NENO however no known SLE, proximal left fibular fracture in September 2014 Neurological History: Reports: Neuropathy, Diabetic, Neuropathy, Peripheral. Denies: Alzheimers Disease, Concussion, CVA, Headaches, Chronic, Head Trauma, Migraines, MS, Parkinson's, Seizure, TIA, Vertigo Psychiatric History: Reports: None. Denies: Abuse, Victim of, ADD, ADHD, Addiction, Anxiety, Depression, Psych Hospitalization(s), PTSD, Suicide Attempt , Suicidal Ideation Endocrine/Metabolic History: Reports: Diabetes, Type II, IDDM, Osteoporosis, Vitamin D Deficiency. Denies: Hypothyroidism Hematologic History: Reports: Anemia, B12 Deficiency, Iron Deficiency, Other ( See Below) Other Hematologic History: Chronic anemia history of renal disease, iron and vitamin B 12 deficiency. Thrombocytopenia. Immunologic History: Reports: None. Denies: AIDS, HIV, SLE Oncologic (Cancer) History: Reports: Squamous Cell Carcinoma, Other (See Below) . 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 Denies: Eczema, Psoriasis - Infectious Disease History Infectious Disease History: Reports: Chicken Pox, Helicobacter Pylori, Mumps, Shingles. Denies: C-Difficile, Measles, Meningitis, Mononucleosis, MRSA, Pertussis (Whooping Cough), Rheumatic Fever, Rubella, Scarlet Fever, TB, VRE - Past Surgical History Head Surgeries/Procedures: Reports: None HEENT Surgical History: Reports: Adenoidectomy, Cataract Surgery, Laser Surgery , Oral Surgery, Tonsillectomy. Denies: Eye Surgery, LASIK, Myringotomy w Tube(s ), Naso-Sinus Surgery Other HEENT Surgeries/Procedures: Right cataract surgery on 05/23/03, left cataract surgery on 06/12/04, tonsillectomy at age 9, left eye YAG treatment, complete teeth extraction Cardiovascular Surgical History: Reports: None. Denies: Varicose Respiratory Surgical History: Reports: None. Denies: Thoracentesis GI Surgical History: Reports: Colonoscopy, EGD, Polypectomy. Denies: Appendectomy, Cholecystectomy Other GI Surgeries/Procedures: Incomplete colonoscopy to 30 cm on 10/19/18. Previous complete Colonoscopy and EGD on 09/25/09, small bowel series on 10/02/09 Male Surgical History: Reports: Prostatectomy, TURP-Transurethral Resection of Prostate. Denies: Circumcision, Vasectomy Other Male Surgeries/Procedures: Last cystoscopy on 12/28/17. Suprapubic partial prostatectomy in September 2004 with no evidence of prostate cancer despite previous PSA elevation Endocrine Surgical History: Reports: None Neurological Surgical History: Reports: Lumbar Spine, Other (See Below) Other Neurological Surgeries/Procedures: Unknown type of back surgeries x2 in the lumbar region Musculoskeletal Surgical History: Reports: None. Denies: Arthroscopic Procedure , Carpal Tunnel, Ganglion Cyst, Joint Replacement, ORIF, Shoulder Surgery Oncologic Surgical History: Reports: Other (See Below) Other Oncologic Surgeries/Procedures: Mohs procedure as above Dermatological Surgical History: Reports: Skin Biopsy - Past Imaging History Past Imaging History: Reports: Cardiac Echo (Last echocardiogram on 02/07/18 with ejection fraction of 5560 percent and previous echocardiograms in September 2014 and 12/17/11.), Carotid US (09/13/11), CAT Scan (Negative CTA of the chest on 07/01/16. CT of the abdomen and pelvis with last evaluation in November 2013. CT of the chest on 05/26/98.), DEXA Scan (01/24/09), Holter Monitor (12/18/03), MRI ( Lumbar spine on 05/03/06), PFT (Last on 06/30/06), Sleep Study (11/27/11), Stress Testing (Dobutamine Cardiolite stress test on 02/09/07 with evidence of inferior wall ischemia and ejection fraction of 55%.), Ultrasound (Bilateral renal ultrasound in September 2014), Venous Doppler (Last venous Doppler studies of lower extremities on 06/29/16 with previous evaluation September 2014), Other (See Below) (VQ scan at [facility] in [place] in September 1999) Social & Family History - Family History HEENT: Reports: None. Denies: Glaucoma, Macular Degeneration, Retinal Detachment Cardiac: Reports: CAD, Hypertension, VA, Other (See Below). Denies: Afib, Aneurysm, Arrhythmia, Blood Clots/VTE/DVT, Heart Failure, Heart Murmur, High Cholesterol, Pacemaker, PVD/COD, Syncope Other Cardiac Family History: Maternal uncle with fatal VA at age 42, another maternal uncle with fatal VA at age 48, mother with hypertension, patient denies history of coronary artery disease in sister despite [facility] records Respiratory: Reports: COPD, Sleep Apnea, Other (See Below) Other Respiratory Family Hisory: Brother with COPD and sleep apnea with history of tobacco use GI: Reports: None. Denies: Celiac Disease, Cholelithiasis, Colon Polyps, GERD, Irritable Bowel Syndrome, PUD : Reports: None. Denies: Renal Calculus, Renal Disease/Insufficiency OBGYN: Reports: None. Denies: Endometriosis, Recurrent Spontaneous Musculoskeletal: Reports: Arthritis, Osteoarthritis, Other (See Below). Denies : Gout, RA, SLE Other Musculoskeletal Family History: Brother with osteoarthritis Neurological: Reports: Cerebral Aneurysms, CVA, Neuropathy, Peripheral, Other ( See Below). Denies: Alzheimers Disease, Dementia, Migraines, Seizure, TIA Other Neurological Family History: Sister with fatal cerebral aneurysm at age 42 , maternal uncle with fatal hemorrhagic CVA at age 65 , patient denies CVA in brother despite [facility] records, brother with peripheral neuropathy Psychiatric: Reports: None. Denies: Abuse, Victim of, ADD, ADHD, Anxiety, Depression, Psych Hospitalization(s), Psychosis, PTSD, Suicide Attempt Endocrine/Metabolic: Reports: None. Denies: Diabetes, Type I, Diabetes, type II , Diabetes Mellitus, Type 3c, Hypothyroidism, IDDM Hematologic: Reports: None. Denies: Anemia, SLE Immunologic: Reports: None. Denies: AIDS, HIV, SLE Dermatologic: Reports: None. Denies: Eczema, Psoriasis Oncologic: Reports: Breast, Other (See Below) Other Oncologic Family History: Mother with unknown type of fatal cancer at age 65, sister with breast cancer in her 60s - Tobacco Use Smoking Status *Q: Former Smoker Tobacco Use Within Last Twelve Months: No Years of Tobacco use: 51 Packs/Tins Daily: 2 Packs/Tins Daily Comment: 1.53 packs per day between ages 16 and 67 Used Tobacco, but Quit: Yes Smoking Cessation Information Provided To Patient: No Second Hand Smoke Exposure: No Second Hand Smoke Education Provided: No - Caffeine Use Caffeine Use: Reports: Coffee Caffeine Use Comment: 3-4 cups of coffee per day, 1 soda per week - Alcohol Use Alcohol Use History: Yes Number of Drinks Per Day Comment: No previous DWIs, problems with alcohol abuse , etc. - Recreational Drug Use Recreational Drug Use: No Drug Use in Last 12 Months: No Recreational Drug Type: Denies: Amphetamines (Speed), Codiene, Heroin, Inhalants (Glues, Solvents, Aerosols), LSD (Acid), Marijuana/Hashish, Methamphetamine, Morphine, Oxycodone - Living Situation & Occupation Living situation: Reports: (1963, 3 children), Extended Care Facility ( [facility]) Occupation: Retired ED ROS GENERAL - Review of Systems Review Of Systems: ROS reveals no pertinent complaints other than HPI. ED EXAM, GI/ABD - Physical Exam Exam: See Below Exam Limited By: Altered Mental Status General Appearance: No Apparent Distress, Lethargic (Mildly) Eyes: Bilateral: Normal Appearance (No nystagmus), EOMI (PERRLA) Ears: Normal External Exam, Normal Canal, Hearing Grossly Normal, Normal TMs Nose: Normal Inspection, Normal Mucosa, No Blood Throat/Mouth: Normal Lips, Normal Gums, Normal Voice, No Airway Compromise. No : Normal Teeth (Complete Dentures uppers and lowers), Normal Oropharynx, Dysphagia, Perioral Cyanosis Head: Atraumatic, Normocephalic. No: Facial Swelling, Facial Tenderness Neck: Supple, Non-Tender, Full Range of Motion, Carotid Bruit (Mild bilateral carotid bruits). No: Lymphadenopathy (L), Lymphadenopathy (R), Thyromegaly Respiratory/Chest: No Respiratory Distress, No Accessory Muscle Use, Chest Non- Tender, Rales (Mild bilateral basilar rales), Rhonchi (Mild diffuse bilateral) , Wheezing (Occasional bilateral). No: Pleural Rub, Retractions Cardiovascular: Normal Peripheral Pulses, Regular Rate, Rhythm, No Gallop, No JVD, No Murmur, No Rub. No: No Edema (Dependent edema as below), Gallop/S3, Gallop/S4, Friction Rub GI/Abdominal Exam: Normal Bowel Sounds, No Distention, No Abnormal Bruit, No Mass, Pelvis Stable, Tender (Mild nonspecific diffuse palpation pain), Hernia ( 4 Centimeter nonincarcerated umbilical hernia). No: Guarding, Rigid, Rebound (Male) Exam: No: Normal Prostate (Prostate absent secondary to cholecystectomy.), Circumcised Rectal (Males) Exam: Black Stool, Bloody Stool, Hemorrhoids. No: Normal Rectal Tone, Prostate Normal (Absent as above), Mass, Tenderness (No Ankit space tenderness) Back Exam: Full Range of Motion, Other (Moderate kyphosis). No: CVA Tenderness (L), CVA Tenderness (R), Muscle Spasm Extremities: Normal Range of Motion, Non-Tender, Normal Capillary Refill, Pedal Edema (Mild to moderate lymphedema of the lower extremities). No: Gumaro's Sign Neurological: Normal Reflexes (Negative Babinski's), Confused (Stable by history ), Other (Mild lethargy) Psychiatric: Normal Affect, Normal Mood Skin Exam: Ecchymosis (Noted on hands, etc.), Pallor (Mild). No: Lymphangitis, Petechiae Lymphatic: No Adenopathy Course - Vital Signs Last Recorded V/S: Last Vital Signs Temp 36.6 C 11/27/18 21:46 Pulse 95 11/27/18 21:46 Resp 20 11/27/18 21:46 BP 95/49 L 11/27/18 21:46 Pulse Ox 99 11/27/18 21:46 Vital Signs - 24 hr 11/27/18 11/27/18 11/27/18 20:40 20:46 21:15 Temperature [ Oral] Pulse, 103 H 100 100 Peripheral [ Left Pulse Oximetry] Respiratory 20 20 Rate Blood Pressure 120/102 H 83/42 L 98/55 L [Right Upper Arm] O2 Sat by Pulse 97 98 Oximetry 11/27/18 11/27/18 21:25 21:46 Temperature [ 36.6 C Oral] Pulse, 99 95 Peripheral [ Left Pulse Oximetry] Respiratory 18 20 Rate Blood Pressure 110/46 L 95/49 L [Right Upper Arm] O2 Sat by Pulse 94 L 99 Oximetry - Orders/Labs/Meds Orders: Active Orders 24 hr Category Date Time Status Cardiac Monitoring [RC] . DIRECTED Care 11/27/18 21:16 Active Peripheral IV Care [RC] . DIRECTED Care 11/27/18 20:46 Active Nothing Per Oral Diet [DIET] Diet 11/27/18 Breakfast Active Abdomen 1V Decubitis [CR] Stat Exams 11/27/18 20:46 Taken Chest 1V Frontal [CR] Stat Exams 11/27/18 21:24 Taken Lactated Ringers [Ringers, Lactated] 1,000 ml Med 11/27/18 21:45 Active IV ASDIRECTED Sodium Chloride 0.9% [Saline Flush] Med 11/27/18 20:45 Active 10 ml FLUSH ASDIRECTED PRN Obtain Past Medical Record [OM.PC] Urgent Oth 11/27/18 20:46 Active Peripheral IV Insertion Adult [OM.PC] Stat Oth 11/27/18 20:46 Ordered Resuscitation Status Stat Resus Stat 11/27/18 20:45 Ordered Medication Orders Lactated Ringer's (Ringers, Lactated) 1,000 mls @ 100 mls/hr IV ASDIRECTED SALOMÓN Sodium Chloride (Saline Flush) 10 ml FLUSH ASDIRECTED PRN PRN Reason: Keep Vein Open Labs: Laboratory Tests 11/27/18 11/27/18 11/27/18 Range/Units 20:39 20:39 20:39 WBC 19.3 H (4.0-10.2) K/uL RBC 2.20 L (4.33-5.41) M/uL Hgb 7.9 L D (13.1-16.8) g/dL Hct 24.8 L* (39.0-49.0) % MCV 112.7 H (84.0-98.0) fL MCH 35.9 H (28.2-33.3) pg MCHC 31.9 (31.7-36.0) g/dL RDW 14.9 H (11.2-14.1) % Plt Count 233 (150-350) K/uL Neut % (Auto) 68.8 (45.0-80.0) % Lymph % (Auto) 21.4 (10.0-50.0) % [place] % (Auto) 9.4 (2.0-14.0) % Eos % (Auto) 0.2 (0.0-5.0) % Baso % (Auto) 0.2 (0.0-2.0) % Neut # (Auto) 13.32 H (1.40-7.00) K/uL Lymph # (Auto) 4.13 H (0.50-3.50) K/uL [place] # (Auto) 1.82 H (0.00-1.00) K/uL Eos # (Auto) 0.04 (0.00-0.50) K/uL Baso # (Auto) 0.03 (0.00-0.20) K/uL PT 10.7 (9.5-12.0) SEC INR 1.0 APTT 27.0 (21.0-31.3) SEC Sodium (136-145) mmol/L Potassium (3.5-5.1) mmol/L Chloride (98-107) mmol/L Carbon Dioxide (21.0-32.0) mmol/L BUN (7-18) mg/dL Creatinine (0.51-1.17) mg/dL Est Cr Clr Drug Dosing Estimated GFR (MDRD) mL/min Glucose (74-106) mg/dL Lactic Acid (0.4-2.0) mmol/L Uric Acid (2.6-7.2) mg/dL Calcium (8.5-10.1) mg/dL Magnesium (1.8-2.4) mg/dL Total Bilirubin (0.2-1.0) mg/dL AST (15-37) U/L ALT (12-78) U/L Alkaline Phosphatase (46-116) IU/L Total Protein (6.4-8.2) g/dL Albumin (3.4-5.0) g/dL Amylase 60 (25-115) U/L Lipase (73-393) U/L 11/27/18 11/27/18 Range/Units 20:39 20:39 WBC (4.0-10.2) K/uL RBC (4.33-5.41) M/uL Hgb (13.1-16.8) g/dL Hct (39.0-49.0) % MCV (84.0-98.0) fL MCH (28.2-33.3) pg MCHC (31.7-36.0) g/dL RDW (11.2-14.1) % Plt Count (150-350) K/uL Neut % (Auto) (45.0-80.0) % Lymph % (Auto) (10.0-50.0) % [place] % (Auto) (2.0-14.0) % Eos % (Auto) (0.0-5.0) % Baso % (Auto) (0.0-2.0) % Neut # (Auto) (1.40-7.00) K/uL Lymph # (Auto) (0.50-3.50) K/uL [place] # (Auto) (0.00-1.00) K/uL Eos # (Auto) (0.00-0.50) K/uL Baso # (Auto) (0.00-0.20) K/uL PT (9.5-12.0) SEC INR APTT (21.0-31.3) SEC Sodium 137 (136-145) mmol/L Potassium 4.1 (3.5-5.1) mmol/L Chloride 100 (98-107) mmol/L Carbon Dioxide 27.4 (21.0-32.0) mmol/L BUN 36 H (7-18) mg/dL Creatinine 1.20 H (0.51-1.17) mg/dL Est Cr Clr Drug Dosing TNP Estimated GFR (MDRD) 58 mL/min Glucose 183 H (74-106) mg/dL Lactic Acid 4.1 H (0.4-2.0) mmol/L Uric Acid 6.6 (2.6-7.2) mg/dL Calcium 8.8 (8.5-10.1) mg/dL Magnesium 2.0 (1.8-2.4) mg/dL Total Bilirubin 0.2 (0.2-1.0) mg/dL AST 17 (15-37) U/L ALT 30 (12-78) U/L Alkaline Phosphatase 67 (46-116) IU/L Total Protein 5.7 L (6.4-8.2) g/dL Albumin 2.4 L (3.4-5.0) g/dL Amylase (25-115) U/L Lipase 185 (73-393) U/L Meds: Medications Generic Name Dose Route Start Last Admin Trade Name Freq PRN Reason Stop Dose Admin Lactated Ringer's 1,000 mls @ 100 mls/hr 11/27/18 21:45 Ringers, Lactated IV ASDIRECTED SALOMÓN Sodium Chloride 10 ml 11/27/18 20:45 Saline Flush FLUSH ASDIRECTED PRN Keep Vein Open Discontinued Medications Generic Name Dose Route Start Last Admin Trade Name Freq PRN Reason Stop Dose Admin Famotidine 40 mg 11/27/18 20:45 11/27/18 21:28 Pepcid IVPUSH 11/27/18 20:46 40 mg ONETIME ONE Administration Lactated Ringer's 1,000 mls @ 999 mls/hr 11/27/18 21:16 11/27/18 21:25 Ringers, Lactated IV 11/27/18 22:16 999 mls/hr .BOLUS ONE Administration Pantoprazole Sodium 40 mg 11/27/18 20:45 11/27/18 21:30 Protonix Iv IVPUSH 11/27/18 20:46 40 mg ONETIME ONE Administration - Radiology Interpretation Free Text/Narrative:: campus monitor showed heart rate in the 90s to 100s with no ectopy or arrhythmia.. X-rays of the abdomen, 2 left decubitus films, and additional PA of the chest, shows no evidence of free air, ileus, or obstruction. Some mild left pleural effusion is noted with borderline centralized CHF versus pulmonary hypertension. Moderate COPD with borderline cardiomegaly and moderately prominent aortic arch. Departure - Departure Time of Disposition: 22:05 Disposition: DC/Tfer to Acute Hospital 02 Condition: Poor Clinical Impression: Lower GI bleed, Hypoalbuminemia, Obstructive sleep apnea on CPAP, Obesity (BMI 30-39.9), Hypomagnesemia, Dyslipidemia, HTN, Benign hypertension, COPD (chronic obstructive pulmonary disease), Chronic GERD, Chronic kidney disease (CKD), Coronary artery disease - Discharge Information *PRESCRIPTION DRUG MONITORING PROGRAM REVIEWED*: Not Applicable *COPY OF PRESCRIPTION DRUG MONITORING REPORT IN PATIENT SG: Not Applicable Referrals: PCP,None [Primary Care Provider] - Forms: ED Department Discharge, Interfacility Transfer EMTALA - Problem List & Annotations (1) Lower GI bleed SNOMED Code(s): 15058292 Code(s): K92.2 - GASTROINTESTINAL HEMORRHAGE, UNSPECIFIED Status: Acute Priority: High Current Visit: Yes Onset Date: ~11/24/18 Annotation/Comment :: Progressive lower GI bleed with significant progressive anemia. Despite hospital records showing previous comfort care only status shelter records and patient's do request a full code at this time. Telephone consultation at 1:[address] Kate, hospitalist at [facility], who does accept the patient for direct admission, with no further treatment recommendations given. Patient is afebrile, however note hypotension, elevated lactic acid level, and significant leukocytosis. IV bolus of lactated Ringer's was initially started with rate decreased to 100 mL per hour prior to transfer secondary to his history of CHF and improved systolic blood pressure. Possible developing sepsis strong consideration of initiation of IV anabolic therapy on patient's arrival. Blood culture should be obtained. Ambulance transfer with stave and bolt equalizer accompaniment. Prognosis guarded. Note previous gross hematochezia in October 2018 with incomplete colonoscopy at that time as above. (2) Thrombocytopenia SNOMED Code(s): 740714259 Code(s): D69.6 - THROMBOCYTOPENIA, UNSPECIFIED Status: Chronic Priority: High Current Visit: No (3) Anemia SNOMED Code(s): 393850273 Code(s): D64.9 - ANEMIA, UNSPECIFIED Status: Chronic Priority: High Current Visit: Yes Annotation/Comment:: CAT scan progressive anemia secondary to lower GI bleed as above. Previous history of both iron and vitamin B-12 deficiency. Qualifiers: Anemia type: other cause Other causes of anemia: acute posthemorrhagic Qualified Code(s): D62 - Acute posthemorrhagic anemia (4) COPD (chronic obstructive pulmonary disease) SNOMED Code(s): 18749598 Code(s): J44.9 - CHRONIC OBSTRUCTIVE PULMONARY DISEASE, UNSPECIFIED Status : Chronic Priority: High Current Visit: Yes Annotation/Comment:: No recent fever or bronchitic type symptoms. Qualifiers: COPD type: COPD with acute lower respiratory infection Qualified Code(s): J44.0 - Chronic obstructive pulmonary disease with acute lower respiratory infection (5) Coronary artery disease SNOMED Code(s): 58585945 Code(s): I25.10 - ATHSCL HEART DISEASE OF [place] CORONARY ARTERY W/O ANG PCTRS Status: Chronic Priority: Medium Current Visit: Yes Annotation/ Comment:: No recent anginal type symptoms with history of CHF as above Qualifiers: Coronary Disease-Associated Artery/Lesion type: [place] artery [place] vs. transplanted heart: [place] heart Associated angina: without angina Qualified Code(s): I25.10 - Atherosclerotic heart disease of [place] coronary artery without angina pectoris (6) Diabetes mellitus SNOMED Code(s): 34000960 Code(s): E11.9 - TYPE 2 DIABETES MELLITUS WITHOUT COMPLICATIONS Status: Chronic Priority: Medium Current Visit: Yes Annotation/Comment:: Stable by history (7) Dyslipidemia SNOMED Code(s): 286327355 Code(s): E78.5 - HYPERLIPIDEMIA, UNSPECIFIED Status: Chronic Priority: Medium Current Visit: Yes Annotation/Comment:: Under therapy (8) HTN, Benign hypertension SNOMED Code(s): 00406760 Code(s): I10 - ESSENTIAL (PRIMARY) HYPERTENSION Status: Chronic Priority : Medium Current Visit: Yes Annotation/Comment:: Hypotension inER secondary to lower GI bleed IV fluids initiated as above. Blood transfusion not initiated secondary to need for expeditious transfer. (9) Hypoalbuminemia SNOMED Code(s): 431716739 Code(s): E88.09 - OTH DISORDERS OF PLASMA-PROTEIN METABOLISM, NEC Status: Chronic Priority: Medium Current Visit: Yes Annotation/Comment:: Observe (10) Hypomagnesemia SNOMED Code(s): 756006735 Code(s): E83.42 - HYPOMAGNESEMIA Status: Chronic Priority: Medium Current Visit: No Onset Date: 06/29/16 Annotation/Comment:: Continue Magnesium oxide with caution secondary to his renal function (11) Obesity (BMI 30-39.9) SNOMED Code(s): 308982369, 234483440 Code(s): E66.9 - OBESITY, UNSPECIFIED Status: Chronic Priority: Medium Current Visit: Yes Annotation/Comment:: Difficult mobility making ambulance transfer necessary (12) Obstructive sleep apnea on CPAP SNOMED Code(s): 72716884 Code(s): G47.33 - OBSTRUCTIVE SLEEP APNEA (ADULT) (PEDIATRIC); Z99.89 - DEPENDENCE ON OTHER ENABLING MACHINES AND DEVICES Status: Chronic Priority: Low Current Visit: No Annotation/Comment:: Patient has been compliant with his CPAP with to bring [facility] machine [facility]. - Problem List Review Problem List Initiated/Reviewed/Updated: Yes - My Orders Last 24 Hours: My Active Orders 11/27/18 20:45 Sodium Chloride 0.9% [Saline Flush] 10 ml FLUSH ASDIRECTED PRN Resuscitation Status Stat 11/27/18 20:46 Peripheral IV Care [RC] . DIRECTED Abdomen 1V Decubitis [CR] Stat Obtain Past Medical Record [OM.PC] Urgent Peripheral IV Insertion Adult [OM.PC] Stat 11/27/18 21:16 Cardiac Monitoring [RC] . DIRECTED 11/27/18 21:24 Chest 1V Frontal [CR] Stat 11/27/18 21:45 Lactated Ringers [Ringers, Lactated] 1,000 ml IV ASDIRECTED 11/27/18 Breakfast Nothing Per Oral Diet [DIET] - Assessment/Plan Last 24 Hours: My Active Orders 11/27/18 20:45 Sodium Chloride 0.9% [Saline Flush] 10 ml FLUSH ASDIRECTED PRN Resuscitation Status Stat 11/27/18 20:46 Peripheral IV Care [RC] . DIRECTED Abdomen 1V Decubitis [CR] Stat Obtain Past Medical Record [OM.PC] Urgent Peripheral IV Insertion Adult [OM.PC] Stat 11/27/18 21:16 Cardiac Monitoring [RC] . DIRECTED 11/27/18 21:24 Chest 1V Frontal [CR] Stat 11/27/18 21:45 Lactated Ringers [Ringers, Lactated] 1,000 ml IV ASDIRECTED 11/27/18 Breakfast Nothing Per Oral Diet [DIET] Assessment:: As above Plan: As above. Extensive precautions were given to the patient and his , who are in agreement with the treatment plan. Ambulance transfer with stave and bolt equalizer accompaniment.
[2018-11-27 21:04] LABS: CHLORIDE,CL 100 mmol/L (98-107); SODIUM,NA 137 mmol/L (136-145)
[2018-11-27] MEDS ORDERED: Lactated Ringers 1,000 ML IV ONE (21:16)
[2018-11-27] MEDS ORDERED: Lactated Ringers 1,000 ML IV SCH (21:45)
[2018-11-27 21:50] VITALS: BP 95/49
== END 2018-11-27 22:05 ==
LOC: LL.ED 20:36
DX: K92.2 Gastrointestinal hemorrhage, unspecified (principal); E88.09 Other disorders of plasma-protein metabolism, not elsewhere classified; G47.33 Obstructive sleep apnea (adult) (pediatric); E66.9 Obesity, unspecified; Z68.30 Body mass index [BMI] 30.0-30.9, adult; E83.42 Hypomagnesemia; E78.5 Hyperlipidemia, unspecified; I13.0 Hypertensive heart and chronic kidney disease with heart failure and stage 1 through stage 4 chronic kidney disease, or unspecified chronic kidney disease; N18.9 Chronic kidney disease, unspecified; I50.9 Heart failure, unspecified; D63.1 Anemia in chronic kidney disease; I25.10 Atherosclerotic heart disease of native coronary artery without angina pectoris; K21.9 Gastro-esophageal reflux disease without esophagitis; J44.9 Chronic obstructive pulmonary disease, unspecified; Z87.891 Personal history of nicotine dependence; Z79.4 Long term (current) use of insulin; Z79.899 Other long term (current) drug therapy; Z88.1 Allergy status to other antibiotic agents; Z88.8 Allergy status to other drugs, medicaments and biological substances
CPT/HCPCS: 36415; 71045; 74018; 80053; 82150; 83605; 83690; 83735; 84550; 85025; 85610; 85730; 96374; 96375; 99285-25; C9113; J3490; J7120

== ENCOUNTER 2018-12-26 10:53 | Inpatient (IN) | payer MEDICARE, BC ==
--- NOTE | 2018-12-26 13:24 | PCM.HP ---
H&P History of Present Illness - General Date of Service: 12/26/18 Admit Problem/Dx: Admission Diagnosis/Problem Admission Diagnosis/Problem Pneumonia Source of Information: Patient, EMS History Limitations: Reports: No Limitations - History of Present Illness Initial Comments - Free Text/Narative: Patient started in with a cough yesterday and the cough became much more productive today. Patient is immunocompromised, has had recurrent infections due to the severity of his infections. Complains of left maxillary pain which started this morning. Denies chest pain, night sweats but has been more short of breath than his usual. Currently resides at [facility]. Onset of Symptoms: Reports: Sudden Improves with: Reports: Rest Worsens with: Reports: Movement Associated Symptoms: Reports: cough w sputum - Related Data Allergies/Adverse Reactions: Allergies Allergy/AdvReac Type Severity Reaction Status Date / Time celecoxib Allergy Cannot Verified 10/14/18 11:02 Remember diltiazem Allergy Cannot Verified 10/14/18 11:02 Remember Wgyrzbf-Euz-Jpk Reductase Allergy Muscle Verified 10/14/18 11:02 Inhibitor Aches tiotropium bromide Allergy URINARY Verified 10/14/18 11:02 [From Spiriva with RETENTION HandiHaler] Home Medications: Home Meds Arformoterol [Brovana] 2 ml INH BID 05/04/14 [History] Budesonide [Pulmicort] 2 ml INH BID 05/04/14 [History] Gabapentin [Neurontin] 300 mg PO TID 05/04/14 [History] Multivitamin [Multivitamins] 1 tab PO DAILY 05/04/14 [History] Omeprazole 20 mg PO BID 05/04/14 [History] Isosorbide Mononitrate [Imdur] 60 mg PO DAILY 10/26/16 [History] Allopurinol [Zyloprim] 300 mg PO QAM 06/13/17 [History] Cholecalciferol (Vitamin D3) [Vitamin D3] 1,000 unit PO DAILY 06/13/17 [History] Docusate Sodium [Colace] 100 mg PO BID 12/28/17 [History] Acetaminophen [Tylenol] 650 mg PO Q4H PRN 05/13/18 [History] Albuterol/Ipratropium [DuoNeb 3.0-0.5 MG/3 ML] 3 ml NEB QID 05/13/18 [History] Magnesium Oxide [Magnesium] 400 mg PO BID 05/13/18 [History] Tamsulosin HCl [Flomax] 0.4 mg PO DAILY 06/13/18 [History] Insulin Detemir [Levemir Flextouch] 20 units SUBCUT BEDTIME #1 06/19/18 [Rx] Insulin Aspart [NovoLOG] 8 unit SQ TID@0800,1200,1800 09/03/18 [History] Polyvinyl Alcohol [LiquiTears 1.4% Ophth Soln] 1 ml EYEBOTH TID@0800,1200,2000 09/03/18 [History] Carvedilol [Coreg] 12.5 mg PO BID 12/26/18 [History] Cyanocobalamin (Vitamin B-12) [B-12] 1,000 mcg PO DAILY 12/26/18 [History] Ferrous Fumarate/Vitamin C [Vitron-C] 1 tab PO BID 12/26/18 [History] Furosemide 40 mg PO BID 12/26/18 [History] Hydrocortisone Acetate [Anucort-HC] 25 mg RECTAL Q24H PRN 12/26/18 [History] Hydrocortisone [Hydrocortisone 2.5% Crm] 1 applicful RECTAL BID 12/26/18 [ History] Potassium Chloride [Potassium Chloride Solution] 20 meq PO DAILY 12/26/18 [ History] guaiFENesin/Dextromethorphan [Safetussin DM] 10 ml PO QID 12/26/18 [History] hydrOXYzine pamoate [Hydroxyzine Pamoate] 25 mg PO Q8HR PRN 12/26/18 [History] predniSONE [Prednisone] 20 mg PO DAILY 12/26/18 [History] Past Medical History HEENT History: Reports: Cataract, Hard of Hearing, Impaired Vision, Macular Degeneration, Other (See Below). 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 Left atrial enlargement Respiratory History: Reports: Bronchitis, Recurrent, COPD, Intubation, Previous , Pneumonia, Recurrent, Pulmonary Fibrosis, Sleep Apnea, Other (See Below). 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 Denies: Celiac Disease, Cholelithiasis, Fecal Incontinence, Hepatitis, Inflammatory Bowel Disease Other Gastrointestinal History: Lower GI bleed in October 2018 possibly secondary to hemorrhoids? Severe diverticulosis of the descending colon by colonoscopy on 09/25/09, GERD with history of esophagitis and upper GI bleed on 09/20/09, peptic ulcer and duodenitis by EGD with previously treated H. pylori, umbilical hernia , benign hepatic cysts by CT scan on 05/26/98 Genitourinary History: Reports: Acute Renal Failure, BPH, Chronic Renal Insuffiency, Diabetic Nephropathy, Prostate Disorder, Renal Disease, Retention, Urinary, UTI, Recurrent, Other (See Below). Denies: Renal Calculus, STD Other Genitourinary History: Acute renal failure with secondary hypotension secondary to NSAIDs use on 10/01/14, BPH with history of PSA elevation, end- stage renal disease-stage III, erectile dysfunction Musculoskeletal History: Reports: Arthritis, Back Pain, Chronic, Fracture, Gout , Neck Pain, Chronic, Osteoarthritis, Osteoporosis, Other (See Below). Denies: Amputation, RA, SLE Other Musculoskeletal History: Spinal stenosis at L4-5 with disc prolapse, positive NENO however no known SLE, proximal left fibular fracture in September 2014 Neurological History: Reports: Neuropathy, Diabetic, Neuropathy, Peripheral. Denies: Alzheimers Disease, Concussion, CVA, Headaches, Chronic, Head Trauma, Migraines, MS, Parkinson's, Seizure, TIA, Vertigo Psychiatric History: Reports: None. Denies: Abuse, Victim of, ADD, ADHD, Addiction, Anxiety, Depression, Psych Hospitalization(s), PTSD, Suicide Attempt , Suicidal Ideation Endocrine/Metabolic History: Reports: Diabetes, Type II, IDDM, Osteoporosis, Vitamin D Deficiency. Denies: Hypothyroidism Hematologic History: Reports: Anemia, B12 Deficiency, Iron Deficiency, Other ( See Below) Other Hematologic History: Chronic anemia history of renal disease, iron and vitamin B 12 deficiency. Thrombocytopenia. Immunologic History: Reports: None. Denies: AIDS, HIV, SLE Oncologic (Cancer) History: Reports: Squamous Cell Carcinoma, Other (See Below) . 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 Denies: Eczema, Psoriasis - Infectious Disease History Infectious Disease History: Reports: Chicken Pox, Helicobacter Pylori, Mumps, Shingles. Denies: C-Difficile, Measles, Meningitis, Mononucleosis, MRSA, Pertussis (Whooping Cough), Rheumatic Fever, Rubella, Scarlet Fever, TB, VRE - Past Surgical History Head Surgeries/Procedures: Reports: None HEENT Surgical History: Reports: Adenoidectomy, Cataract Surgery, Laser Surgery , Oral Surgery, Tonsillectomy. Denies: Eye Surgery, LASIK, Myringotomy w Tube(s ), Naso-Sinus Surgery Other HEENT Surgeries/Procedures: Right cataract surgery on 05/23/03, left cataract surgery on 06/12/04, tonsillectomy at age 9, left eye YAG treatment, complete teeth extraction Cardiovascular Surgical History: Reports: None. Denies: Varicose Respiratory Surgical History: Reports: None. Denies: Thoracentesis GI Surgical History: Reports: Colonoscopy, EGD, Polypectomy. Denies: Appendectomy, Cholecystectomy Other GI Surgeries/Procedures: Incomplete colonoscopy to 30 cm on 10/19/18. Previous complete Colonoscopy and EGD on 09/25/09, small bowel series on 10/02/09 Male Surgical History: Reports: Prostatectomy, TURP-Transurethral Resection of Prostate. Denies: Circumcision, Vasectomy Other Male Surgeries/Procedures: Last cystoscopy on 12/28/17. Suprapubic partial prostatectomy in September 2004 with no evidence of prostate cancer despite previous PSA elevation Endocrine Surgical History: Reports: None Neurological Surgical History: Reports: Lumbar Spine, Other (See Below) Other Neurological Surgeries/Procedures: Unknown type of back surgeries x2 in the lumbar region Musculoskeletal Surgical History: Reports: None. Denies: Arthroscopic Procedure , Carpal Tunnel, Ganglion Cyst, Joint Replacement, ORIF, Shoulder Surgery Oncologic Surgical History: Reports: Other (See Below) Other Oncologic Surgeries/Procedures: Mohs procedure as above Dermatological Surgical History: Reports: Skin Biopsy - Past Imaging History Past Imaging History: Reports: Cardiac Echo (Last echocardiogram on 02/07/18 with ejection fraction of 5560 percent and previous echocardiograms in September 2014 and 12/17/11.), Carotid US (09/13/11), CAT Scan (Negative CTA of the chest on 07/01/16. CT of the abdomen and pelvis with last evaluation in November 2013. CT of the chest on 05/26/98.), DEXA Scan (01/24/09), Holter Monitor (12/18/03), MRI ( Lumbar spine on 05/03/06), PFT (Last on 06/30/06), Sleep Study (11/27/11), Stress Testing (Dobutamine Cardiolite stress test on 02/09/07 with evidence of inferior wall ischemia and ejection fraction of 55%.), Ultrasound (Bilateral renal ultrasound in September 2014), Venous Doppler (Last venous Doppler studies of lower extremities on 06/29/16 with previous evaluation September 2014), Other (See Below) (VQ scan at [facility] in [place] in September 1999) Social & Family History - Family History HEENT: Reports: None. Denies: Glaucoma, Macular Degeneration, Retinal Detachment Cardiac: Reports: CAD, Hypertension, MD, Other (See Below). Denies: Afib, Aneurysm, Arrhythmia, Blood Clots/VTE/DVT, Heart Failure, Heart Murmur, High Cholesterol, Pacemaker, PVD/COD, Syncope Other Cardiac Family History: Maternal uncle with fatal MD at age 42, another maternal uncle with fatal MD at age 48, mother with hypertension, patient denies history of coronary artery disease in sister despite [place] records Respiratory: Reports: COPD, Sleep Apnea, Other (See Below) Other Respiratory Family Hisory: Brother with COPD and sleep apnea with history of tobacco use GI: Reports: None. Denies: Celiac Disease, Cholelithiasis, Colon Polyps, GERD, Irritable Bowel Syndrome, PUD : Reports: None. Denies: Renal Calculus, Renal Disease/Insufficiency OBGYN: Reports: None. Denies: Endometriosis, Recurrent Spontaneous Musculoskeletal: Reports: Arthritis, Osteoarthritis, Other (See Below). Denies : Gout, RA, SLE Other Musculoskeletal Family History: Brother with osteoarthritis Neurological: Reports: Cerebral Aneurysms, CVA, Neuropathy, Peripheral, Other ( See Below). Denies: Alzheimers Disease, Dementia, Migraines, Seizure, TIA Other Neurological Family History: Sister with fatal cerebral aneurysm at age 42 , maternal uncle with fatal hemorrhagic CVA at age 65 , patient denies CVA in brother despite [place] records, brother with peripheral neuropathy Psychiatric: Reports: None. Denies: Abuse, Victim of, ADD, ADHD, Anxiety, Depression, Psych Hospitalization(s), Psychosis, PTSD, Suicide Attempt Endocrine/Metabolic: Reports: None. Denies: Diabetes, Type I, Diabetes, type II , Diabetes Mellitus, Type 3c, Hypothyroidism, IDDM Hematologic: Reports: None. Denies: Anemia, SLE Immunologic: Reports: None. Denies: AIDS, HIV, SLE Dermatologic: Reports: None. Denies: Eczema, Psoriasis Oncologic: Reports: Breast, Other (See Below) Other Oncologic Family History: Mother with unknown type of fatal cancer at age 65, sister with breast cancer in her 60s - Caffeine Use Caffeine Use: Reports: Coffee Caffeine Use Comment: 3-4 cups of coffee per day, 1 soda per week - Living Situation & Occupation Living situation: Reports: (1963, 3 children), Extended Care Facility ( [facility]) Occupation: Retired H&P Review of Systems - Review of Systems: Review Of Systems: See Below General: Reports: Weakness HEENT: Reports: Other (left sided maxillary pain) Cardiovascular: Reports: No Symptoms Gastrointestinal: Reports: No Symptoms Genitourinary: Reports: Frequency Musculoskeletal: Reports: Joint Swelling Skin: Reports: Bruising Psychiatric: Reports: No Symptoms Neurological: Reports: No Symptoms Hematologic/Lymphatic: Reports: Anemia, Easy Bruising Immunologic: Reports: No Symptoms Exam - Exam Exam: See Below - Vital Signs Vital Signs: Last Vital Signs Temp 98.6 F 12/26/18 11:29 Pulse 87 12/26/18 11:29 Resp 24 H 12/26/18 11:29 BP 127/61 12/26/18 11:29 Pulse Ox 97 12/26/18 11:29 - Exam Quality Assessment: Supplemental Oxygen General: Alert, Oriented, Cooperative HEENT: Conjunctiva Clear, EACs Clear, EOMI, Hearing Intact (hearing aids), Mucosa Moist & [place], Nares Patent, Normal Nasal Septum, Posterior Pharynx Clear , Pupils Equal, Pupils Reactive, TMs Clear Neck: Supple, Trachea Midline Lungs: Normal Respiratory Effort, Decreased Breath Sounds, Crackles (crackles to bilat bases) Cardiovascular: Regular Rate, Regular Rhythm GI/Abdominal Exam: Normal Bowel Sounds, Soft, Non-Tender, No Organomegaly, No Distention Extremities: Normal Capillary Refill, Pedal Edema Peripheral Pulses: 1+: Dorsalis Pedis (L), Dorsalis Pedis (R) Skin: Warm, Dry, Intact Neurological: Cranial Nerves Intact, Reflexes Equal Bilateral Neuro Extensive - Mental Status: Alert, Oriented x3, Normal Mood/Affect, Normal Cognition, Memory Intact Neuro Extensive - Motor, Sensory, Reflexes: CN II-XII Intact, Normal Gait, Normal Reflexes DTR: 1+: Achilles (L), Achilles (R) Psychiatric: Alert, Normal Affect, Normal Mood - Problem List (1) Pneumonia SNOMED Code(s): 371602518 ICD Code: J18.9 - PNEUMONIA, UNSPECIFIED ORGANISM Status: Acute Priority : High Current Visit: No Qualifiers: Laterality: unspecified laterality (2) Anemia SNOMED Code(s): 553084977 ICD Code: D64.9 - ANEMIA, UNSPECIFIED Status: Chronic Priority: High Current Visit: No Qualifiers: Anemia type: other cause (3) COPD (chronic obstructive pulmonary disease) SNOMED Code(s): 83081157 ICD Code: J44.9 - CHRONIC OBSTRUCTIVE PULMONARY DISEASE, UNSPECIFIED Status : Chronic Priority: High Current Visit: No Problem Details: No recent fever or bronchitic type symptoms. Qualifiers: COPD type: COPD with acute lower respiratory infection Qualified Code(s): J44.0 - Chronic obstructive pulmonary disease with acute lower respiratory infection Problem List Initiated/Reviewed/Updated: Yes Orders Last 24hrs: Active Orders 24 hr Category Date Time Status Patient Status [ADT] Routine ADT 12/26/18 11:29 Active Blood Glucose Check, Bedside [RC] BIDMEALS Care 12/26/18 11:29 Active Intake and Output [RC] QSHIFT Care 12/26/18 11:31 Active May Shower [RC] ASDIRECTED Care 12/26/18 11:29 Active Oxygen Therapy [RC] PRN Care 12/26/18 11:29 Active Peripheral IV Care [RC] . DIRECTED Care 12/26/18 11:33 Active Up With Assistance [RC] ASDIRECTED Care 12/26/18 11:29 Active VTE/DVT Education [RC] PER UNIT ROUTINE Care 12/26/18 11:29 Active Vital Signs [RC] Q4H Care 12/26/18 11:29 Active Consult to Case Management/Size Stamper [CONS] Cons 12/26/18 11:29 Active Routine OT Evaluation and Treatment [CONS] Routine Cons 12/26/18 11:29 Active PT Evaluation and Treatment [CONS] Routine Cons 12/26/18 11:29 Active [place] [employer] Diet [DIET] Diet 12/27/18 Lunch Active Chest 2V [CR] Routine Exams 12/26/18 11:36 Ordered C-REACTIVE PROTEIN [CHEM] DAILY Lab 12/27/18 05:11 Ordered C-REACTIVE PROTEIN [CHEM] DAILY Lab 12/28/18 05:11 Ordered C-REACTIVE PROTEIN [CHEM] DAILY Lab 12/29/18 05:11 Ordered C-REACTIVE PROTEIN [CHEM] DAILY Lab 12/30/18 05:11 Ordered CBC WITH AUTO DIFF [HEME] DAILY Lab 12/27/18 05:11 Ordered CBC WITH AUTO DIFF [HEME] DAILY Lab 12/28/18 05:11 Ordered CBC WITH AUTO DIFF [HEME] DAILY Lab 12/29/18 05:11 Ordered CBC WITH AUTO DIFF [HEME] DAILY Lab 12/30/18 05:11 Ordered COMPREHENSIVE METABOLIC PN,CMP [CHEM] DAILY Lab 12/27/18 05:11 Ordered COMPREHENSIVE METABOLIC PN,CMP [CHEM] DAILY Lab 12/28/18 05:11 Ordered COMPREHENSIVE METABOLIC PN,CMP [CHEM] DAILY Lab 12/29/18 05:11 Ordered COMPREHENSIVE METABOLIC PN,CMP [CHEM] DAILY Lab 12/30/18 05:11 Ordered CULTURE BLOOD [BC] Stat Lab 12/26/18 11:40 Received CULTURE BLOOD [BC] Stat Lab 12/26/18 11:51 Received CULTURE SPUTUM + SMEAR [RM] Stat Lab 12/26/18 11:29 Ordered CULTURE URINE [RM] Stat Lab 12/26/18 11:29 Ordered MYCOPLASMA IGM RAPID [MREF] Routine Lab 12/27/18 05:11 Ordered UA W/MICROSCOPIC [URIN] Routine Lab 12/26/18 11:29 Ordered Acetaminophen [Tylenol] Med 12/26/18 12:41 Ordered 650 mg PO Q4H PRN Albuterol/Ipratropium [DuoNeb 3.0-0.5 MG/3 ML] Med 12/26/18 16:00 Ordered 3 ml NEB QID Allopurinol [Zyloprim] Med 12/27/18 08:00 Ordered 300 mg PO QAM Arformoterol [Brovana] Med 12/26/18 18:00 Ordered 15 mcg INH BID Budesonide [Pulmicort] Med 12/26/18 18:00 Ordered 0.5 mg INH BID Carvedilol [Coreg] Med 12/26/18 18:00 Ordered 12.5 mg PO BID Cholecalciferol (Vitamin D3) [Vitamin D3] Med 12/27/18 08:00 Ordered 1,000 units PO DAILY Cyanocobalamin (Vitamin B12) [Vitamin B12] Med 12/27/18 08:00 Ordered 1,000 mcg PO DAILY Docusate Sodium [Colace] Med 12/26/18 18:00 Ordered 100 mg PO BID Enoxaparin [Lovenox] Med 12/27/18 08:00 Active 30 mg SUBCUT DAILY Ferrous Fumarate/Vitamin C [Vitron-C] Med 12/26/18 18:00 Ordered 1 tab PO BID Furosemide [Lasix] Med 12/26/18 18:00 Ordered 40 mg PO BID Gabapentin [Neurontin] Med 12/26/18 18:00 Ordered 300 mg PO TID Hydrocortisone [Hydrocortisone 2.5% Crm] Med 12/26/18 18:00 Ordered 1 applicful RECTAL BID Insulin Aspart Med 12/26/18 18:00 Ordered 8 unit SQ TID@0800,1200,1800 Insulin Detemir [Levemir Flextouch] Med 12/26/18 20:00 Ordered 20 units SUBCUT BEDTIME Isosorbide Mononitrate [Imdur] Med 12/27/18 08:00 Ordered 60 mg PO DAILY Levofloxacin/Dextrose 5%-Water [Levaquin in D5W 500 MG/ Med 12/26/18 12:30 Ordered 100 ML] 500 mg Premix Bag 1 bag IV Q24H Magnesium Oxide [Magnesium] Med 12/26/18 18:00 Ordered 400 mg PO BID Multivitamin [Multivitamins] Med 12/27/18 08:00 Ordered 1 tab PO DAILY Omeprazole Med 12/26/18 18:00 Ordered 20 mg PO BID Polyvinyl Alcohol [LiquiTears 1.4% Ophth Soln] Med 12/26/18 20:00 Ordered 1 ml EYEBOTH TID@0800,1200,2000 Potassium Chloride [Potassium Chloride Solution] Med 12/27/18 08:00 Ordered 20 meq PO DAILY Sodium Chloride 0.9% [Saline Flush] Med 12/26/18 11:29 Active 10 ml FLUSH ASDIRECTED PRN Tamsulosin [Flomax] Med 12/27/18 08:00 Ordered 0.4 mg PO DAILY cefTAZidime Pentahydrate [Fortaz] Med 12/26/18 16:00 Ordered 1 gm IVPUSH Q8HR methylPREDNISolone Sod Succ [Solu-MEDROL] Med 12/27/18 08:00 Ordered 40 mg IVPUSH DAILY metroNIDAZOLE/Normal Saline [Flagyl 500 MG in NS 100 ML Med 12/26/18 12:30 Ordered ] 500 mg Premix Bag 1 bag IV Q8H Blood Culture x2 Reflex Set [OM.PC] Stat Oth 12/26/18 11:29 Ordered Peripheral IV Insertion Adult [OM.PC] Routine Oth 12/26/18 11:29 Ordered Saline Lock Insert [OM.PC] Routine Oth 12/26/18 11:29 Ordered Resuscitation Status Routine Resus Stat 12/26/18 11:29 Ordered Medication Orders Acetaminophen (Tylenol) 650 mg PO Q4H PRN PRN Reason: Pain Albuterol/Ipratropium (Duoneb 3.0-0.5 Mg/3 Ml) 3 ml NEB QID SALOMÓN Arformoterol Tartrate (Brovana) 15 mcg INH BID SALOM[facility]N Artificial Tears (Liquitears 1.4% Ophth Soln) 1 ml EYEBOTH TID@0800,1200,2000 SALOM[facility] Budesonide (Pulmicort) 0.5 mg INH BID SALOM[place] Carvedilol (Coreg) 12.5 mg PO BID SALOM[place] Ceftazidime (Fortaz) 1 gm IVPUSH Q8H [place] Cholecalciferol (Vitamin D3) 1,000 units PO DAILY SALOM[place] Cyanocobalamin (Vitamin B12) 1,000 mcg PO DAILY SALOM[facility] Docusate Sodium (Colace) 100 mg PO BID [place]OM[place] Enoxaparin Sodium (Lovenox) 30 mg SUBCUT DAILY [place]OM[place] Furosemide (Lasix) 40 mg PO BID SALOM[place] Gabapentin (Neurontin) 300 mg PO TID SALOM[place] Levofloxacin/Dextrose 500 mg/ (Premix) 100 mls @ 100 mls/hr IV Q24H [place] Metronidazole 500 mg/ Premix 100 mls @ 100 mls/hr IV Q8H [place] Isosorbide Mononitrate (Imdur) 60 mg PO DAILY [place]OM[place] Non-Formulary Medication (Allopurinol [Zyloprim]) 300 mg PO QAM [place]OM[place] Non-Formulary Medication (Ferrous Fumarate/Vitamin C [Vitron-C]) 1 tab PO BID [place]OM[place] Non-Formulary Medication (Hydrocortisone [Hydrocortisone 2.5% Crm]) 1 applicful RECTAL BID [facility] Non-Formulary Medication (Insulin Aspart) 8 unit SQ TID@0800,1200,1800 [place] Non-Formulary Medication (Insulin Detemir [Levemir Flextouch]) 20 units SUBCUT BEDTIME [place] Non-Formulary Medication (Magnesium Oxide [Magnesium]) 400 mg PO BID [place] Non-Formulary Medication (Multivitamin [Multivitamins]) 1 tab PO DAILY [place] Omeprazole (Omeprazole) 20 mg PO BID [place]OM[place] Potassium Chloride (Potassium Chloride Solution) 20 meq PO DAILY [place]OM[place] Sodium Chloride (Saline Flush) 10 ml FLUSH ASDIRECTED PRN PRN Reason: Keep Vein Open Tamsulosin HCl (Flomax) 0.4 mg PO DAILY [facility] Assessment/Plan Comment:: 12/26/2018 patient is admitted to the services of Dr Montano for inpatient treatment of pneumonia and COPD exacerbation. Patient requires inpatient services due to immunocompromised state, WBC at 23,000 with sudden onset. Started on IV antibiotics. Blood cultures collected. patient is full code, wanted to stay in [place] for now unless his condition changes. Will recheck labs in the morning. Astrid Damon,[employer]
[2018-12-26] MEDS: Levofloxacin/Dextrose 5%-Water 500 MG in Premix Bag 1 BAG IV SCH (13:38)
[2018-12-26] MEDS: metroNIDAZOLE/Normal Saline 500 MG in Premix Bag 1 BAG IV SCH ×2 (14:47→22:55)
[2018-12-26] MEDS: cefTAZidime 1 GM Vial IVPUSH SCH ×2 (14:47→22:55)
[2018-12-26] MEDS: Albuterol/Ipratropium 3.0-0.5 MG/3 ML Neb Soln NEB SCH ×2 (15:54→21:31)
[2018-12-26] MEDS: Omeprazole 20 MG Cap.CR PO SCH (17:43)
[2018-12-26] MEDS: Magnesium Oxide 400 MG Tab PO SCH (17:43)
[2018-12-26] MEDS: Furosemide 40 MG Tab PO SCH (17:43)
[2018-12-26] MEDS: Gabapentin 300 MG Cap PO SCH (17:43)
[2018-12-26] MEDS: Docusate Sodium 100 MG Cap PO SCH (17:43)
[2018-12-26] MEDS: Insulin Lispro 100 Units/ML 3 ML Vial SUBCUT SCH (17:44)
[2018-12-26] MEDS: Hydrocortisone 2.5% Crm 30 GM Tube TOP SCH ×2 (17:45→17:48)
[2018-12-26] MEDS ORDERED: Carvedilol 12.5 MG Tab PO SCH (18:00)
[2018-12-26] MEDS ORDERED: Budesonide 0.5 MG/2 ML Neb Susp INH SCH (18:00)
[2018-12-26] MEDS ORDERED: Arformoterol 15 MCG/2 ML Neb Soln INH SCH (18:00)
[2018-12-26] MEDS: Arformoterol 15 MCG/2 ML Neb Soln INH SCH (21:30)
[2018-12-26] MEDS: Carvedilol 12.5 MG Tab PO SCH (21:30)
[2018-12-26] MEDS: Insulin Glarg,Human.Rec.Analog 100 UNIT/ML ML SUBCUT SCH (21:31)
[2018-12-26] MEDS: Budesonide 0.5 MG/2 ML Neb Susp INH SCH (21:32)
[2018-12-26] MEDS: Polyvinyl Alcohol 1.4% Ophth Soln 15 ML Bottle EYEBOTH SCH (21:32)
[2018-12-26] MEDS: Sodium Chloride 0.9% 10 ML Syringe FLUSH PRN (22:58)
[2018-12-27] MEDS: cefTAZidime 1 GM Vial IVPUSH SCH ×3 (05:27→22:02)
[2018-12-27] MEDS: Sodium Chloride 0.9% 10 ML Syringe FLUSH PRN ×6 (05:27→22:03)
[2018-12-27] MEDS: metroNIDAZOLE/Normal Saline 500 MG in Premix Bag 1 BAG IV SCH ×3 (05:27→22:02)
[2018-12-27] MEDS ORDERED: Multivitamin Tab PO SCH (08:00)
[2018-12-27] MEDS ORDERED: Cholecalciferol (Vitamin D3) 1,000 Unit Tab PO SCH (08:00)
[2018-12-27] MEDS ORDERED: Cyanocobalamin (Vitamin B12) 1,000 MCG Tab PO SCH (08:00)
[2018-12-27 08:40] LABS: CHLORIDE,CL 96 mmol/L (98-107); SODIUM,NA 136 mmol/L (136-145)
[2018-12-27] MEDS: Hydrocortisone 2.5% Crm 30 GM Tube TOP SCH ×2 (09:15→19:31)
[2018-12-27] MEDS: Budesonide 0.5 MG/2 ML Neb Susp INH SCH ×2 (09:17→19:27)
[2018-12-27] MEDS: Polyvinyl Alcohol 1.4% Ophth Soln 15 ML Bottle EYEBOTH SCH ×3 (09:18→19:29)
[2018-12-27] MEDS: Arformoterol 15 MCG/2 ML Neb Soln INH SCH ×2 (09:18→19:27)
[2018-12-27] MEDS: Potassium Chloride 10% 20 MEQ/15 ML Soln 15 ML UD Cup PO SCH (09:18)
[2018-12-27] MEDS: Allopurinol 100 MG Tab PO SCH (09:21)
[2018-12-27] MEDS: Albuterol/Ipratropium 3.0-0.5 MG/3 ML Neb Soln NEB SCH ×4 (09:21→19:27)
[2018-12-27] MEDS: methylPREDNISolone Sodium Succinate 40 MG/1 ML SDV IVPUSH SCH (09:22)
[2018-12-27] MEDS: Docusate Sodium 100 MG Cap PO SCH ×2 (09:22→17:09)
[2018-12-27] MEDS: Omeprazole 20 MG Cap.CR PO SCH ×2 (09:22→17:09)
[2018-12-27] MEDS: Magnesium Oxide 400 MG Tab PO SCH ×2 (09:23→17:09)
[2018-12-27] MEDS: Tamsulosin 0.4 MG Cap.ER PO SCH (09:23)
[2018-12-27] MEDS: Gabapentin 300 MG Cap PO SCH ×3 (09:23→17:08)
[2018-12-27] MEDS: Isosorbide Mononitrate 60 MG Tab.ER PO SCH (09:25)
[2018-12-27] MEDS: Carvedilol 12.5 MG Tab PO SCH ×2 (09:25→19:26)
[2018-12-27] MEDS: Insulin Lispro 100 Units/ML 3 ML Vial SUBCUT SCH ×3 (09:26→17:11)
[2018-12-27] MEDS: Furosemide 40 MG Tab PO SCH ×2 (09:26→17:08)
[2018-12-27] MEDS: Enoxaparin 30 MG/0.3 ML Syringe SUBCUT SCH (09:27)
[2018-12-27] MEDS: Levofloxacin/Dextrose 5%-Water 500 MG in Premix Bag 1 BAG IV SCH (12:26)
[2018-12-27] MEDS: Acetaminophen 325 MG Tab PO PRN (14:35)
[2018-12-27] MEDS ORDERED: VITAMIN C PO SCH (18:00)
[2018-12-27] MEDS ORDERED: FERROUS FUMARATE PO SCH (18:00)
[2018-12-27] MEDS: Insulin Glarg,Human.Rec.Analog 100 UNIT/ML ML SUBCUT SCH (19:27)
--- NOTE | 2018-12-27 21:58 | PCM.PN ---
- General Info Date of Service: 12/27/18 Admission Dx/Problem (Free Text): Admission Diagnosis/Problem Admission Diagnosis/Problem Pneumonia Functional Status: Reports: Tolerating Diet - Review of Systems General: Reports: Weakness HEENT: Reports: No Symptoms Pulmonary: Reports: Cough Cardiovascular: Reports: No Symptoms Gastrointestinal: Reports: No Symptoms Genitourinary: Reports: No Symptoms Musculoskeletal: Reports: No Symptoms Skin: Reports: Bruising Neurological: Reports: Weakness Psychiatric: Reports: No Symptoms - Patient Data Vitals - Most Recent: Last Vital Signs Temp 97.4 F 12/27/18 19:47 Pulse 81 12/27/18 19:47 Resp 17 12/27/18 19:47 BP 133/60 12/27/18 19:47 Pulse Ox 98 12/27/18 19:47 Weight - Most Recent: 274 lb I&O - Last 24 Hours: Intake & Output 12/27/18 12/27/18 12/27/18 06:59 14:59 22:59 Intake Total 200 1600 380 Output Total 1075 300 200 Balance -875 1300 180 Lab Results Last 24 Hours: Laboratory Results - last 24 hr 12/27/18 12/27/18 12/27/18 Range/Units 07:09 07:15 07:15 WBC 18.1 H (4.0-10.2) K/uL RBC 2.89 L (4.33-5.41) M/uL Hgb 9.8 L D (13.1-16.8) g/dL Hct 30.6 L (39.0-49.0) % MCV 105.9 H D (84.0-98.0) fL MCH 33.9 H (28.2-33.3) pg MCHC 32.0 (31.7-36.0) g/dL RDW 19.6 H (11.2-14.1) % Plt Count 193 (150-350) K/uL Neut % (Auto) 70.8 (45.0-80.0) % Lymph % (Auto) 16.3 (10.0-50.0) % Mccone % (Auto) 12.0 (2.0-14.0) % Eos % (Auto) 0.7 (0.0-5.0) % Baso % (Auto) 0.2 (0.0-2.0) % Neut # (Auto) 12.81 H (1.40-7.00) K/uL Lymph # (Auto) 2.95 (0.50-3.50) K/uL M[place]one # (Auto) 2.18 H (0.00-1.00) K/uL Eos # (Auto) 0.13 (0.00-0.50) K/uL Baso # (Auto) 0.03 (0.00-0.20) K/uL Sodium 136 (136-145) mmol/L Potassium 3.5 (3.5-5.1) mmol/L Chloride 96 L (98-107) mmol/L Carbon Dioxide 27.6 (21.0-32.0) mmol/L BUN 27 H (7-18) mg/dL Creatinine 0.97 (0.51-1.17) mg/dL Est Cr Clr Drug Dosing TNP Estimated GFR (MDRD) > 60 mL/min Glucose 166 H (74-106) mg/dL POC Glucose 172 H (65-110) mg/dl Uric Acid 7.4 H (2.6-7.2) mg/dL Calcium 8.8 (8.5-10.1) mg/dL Total Bilirubin 0.3 (0.2-1.0) mg/dL AST 19 (15-37) U/L ALT 28 (12-78) U/L Alkaline Phosphatase 80 (46-116) IU/L C-Reactive Protein 15.7 H (<=0.9) mg/dL Total Protein 6.3 L (6.4-8.2) g/dL Albumin 2.4 L (3.4-5.0) g/dL 12/27/18 Range/Units 17:00 WBC (4.0-10.2) K/uL RBC (4.33-5.41) M/uL Hgb (13.1-16.8) g/dL Hct (39.0-49.0) % MCV (84.0-98.0) fL MCH (28.2-33.3) pg MCHC (31.7-36.0) g/dL RDW (11.2-14.1) % Plt Count (150-350) K/uL Neut % (Auto) (45.0-80.0) % Lymph % (Auto) (10.0-50.0) % [place] % (Auto) (2.0-14.0) % Eos % (Auto) (0.0-5.0) % Baso % (Auto) (0.0-2.0) % Neut # (Auto) (1.40-7.00) K/uL Lymph # (Auto) (0.50-3.50) K/uL [place] # (Auto) (0.00-1.00) K/uL Eos # (Auto) (0.00-0.50) K/uL Baso # (Auto) (0.00-0.20) K/uL Sodium (136-145) mmol/L Potassium (3.5-5.1) mmol/L Chloride (98-107) mmol/L Carbon Dioxide (21.0-32.0) mmol/L BUN (7-18) mg/dL Creatinine (0.51-1.17) mg/dL Est Cr Clr Drug Dosing Estimated GFR (MDRD) mL/min Glucose (74-106) mg/dL POC Glucose 422 H* (65-110) mg/dl Uric Acid (2.6-7.2) mg/dL Calcium (8.5-10.1) mg/dL Total Bilirubin (0.2-1.0) mg/dL AST (15-37) U/L ALT (12-78) U/L Alkaline Phosphatase (46-116) IU/L C-Reactive Protein (<=0.9) mg/dL Total Protein (6.4-8.2) g/dL Albumin (3.4-5.0) g/dL Murali Results Last 24 Hours: Microbiology 12/26/18 11:51 Aerobic Blood Culture - Preliminary Blood - Venous - Lab Draw NO GROWTH AFTER 1 DAY Anaerobic Blood Culture - Preliminary NO GROWTH AFTER 1 DAY 12/26/18 11:40 Aerobic Blood Culture - Preliminary Blood - Venous NO GROWTH AFTER 1 DAY Anaerobic Blood Culture - Preliminary NO GROWTH AFTER 1 DAY 12/26/18 11:29 Urine Culture - Final Urine, Bladder Med Orders - Current: Current Medications Acetaminophen (Tylenol) 650 mg PO Q4H PRN PRN Reason: Pain Last Admin: 12/27/18 14:35 Dose: 650 mg Albuterol/Ipratropium (Duoneb 3.0-0.5 Mg/3 Ml) 3 ml NEB QID [facility] Last Admin: 12/27/18 19:27 Dose: 3 ml Allopurinol (Zyloprim) 300 mg PO QAM [facility] Last Admin: 12/27/18 09:21 Dose: 300 mg Arformoterol Tartrate (Brovana) 15 mcg INH Q12HR [facility] Last Admin: 12/27/18 19:27 Dose: 15 mcg Artificial Tears (Liquitears 1.4% Ophth Soln) 1 ml EYEBOTH TID@0800,1200,2000 [facility] Last Admin: 12/27/18 19:29 Dose: 1 drop Carvedilol (Coreg) 12.5 mg PO Q12HR [facility] Last Admin: 12/27/18 19:26 Dose: 12.5 mg Ceftazidime (Fortaz) 1 gm IVPUSH Q8H [facility] Last Admin: 12/27/18 14:37 Dose: 1 gm Docusate Sodium (Colace) 100 mg PO BID [facility] Last Admin: 12/27/18 17:09 Dose: 100 mg Enoxaparin Sodium (Lovenox) 30 mg SUBCUT DAILY [facility] Last Admin: 12/27/18 09:27 Dose: 30 mg Gabapentin (Neurontin) 300 mg PO TID [facility] Last Admin: 12/27/18 17:08 Dose: 300 mg Hydrocortisone (Proctozone-Hc 2.5% Crm) 1 gm TOP BID [facility] Last Admin: 12/27/18 19:31 Dose: 1 applic Levofloxacin/Dextrose 500 mg/ (Premix) 100 mls @ 100 mls/hr IV Q24H [facility] Last Infusion: 12/27/18 13:55 Dose: Infused Metronidazole 500 mg/ Premix 100 mls @ 100 mls/hr IV Q8H [facility] Last Infusion: 12/27/18 15:40 Dose: Infused Insulin Glargine (Lantus) 20 unit SUBCUT BEDTIME [facility] Last Admin: 12/27/18 19:27 Dose: 20 unit Insulin Human Lispro (Humalog) 8 unit SUBCUT TID@0800,1200,1800 [facility] Last Admin: 12/27/18 17:11 Dose: 8 units Isosorbide Mononitrate (Imdur) 60 mg PO DAILY [facility] Last Admin: 12/27/18 09:25 Dose: 60 mg Magnesium Oxide (Magnesium Oxide) 400 mg PO BID [facility] Last Admin: 12/27/18 17:09 Dose: 400 mg Methylprednisolone Sodium Succinate (Solu-Medrol) 40 mg IVPUSH DAILY [facility] Last Admin: 12/27/18 09:22 Dose: 40 mg Omeprazole (Omeprazole) 20 mg PO BID [facility] Last Admin: 12/27/18 17:09 Dose: 20 mg Potassium Chloride (Potassium Chloride Solution) 20 meq PO DAILY [facility] Last Admin: 12/27/18 09:18 Dose: 20 meq Sodium Chloride (Saline Flush) 10 ml FLUSH ASDIRECTED PRN PRN Reason: Keep Vein Open Last Admin: 12/27/18 14:37 Dose: 10 ml Tamsulosin HCl (Flomax) 0.4 mg PO DAILY [facility] Last Admin: 12/27/18 09:23 Dose: 0.4 mg Discontinued Medications Arformoterol Tartrate (Brovana) 15 mcg INH BID [facility] Budesonide (Pulmicort) 0.5 mg INH BID [facility] Budesonide (Pulmicort) 0.5 mg INH Q12HR [facility] Last Admin: 12/27/18 19:27 Dose: 0.5 mg Carvedilol (Coreg) 12.5 mg PO BID [facility] Cholecalciferol (Vitamin D3) 1,000 units PO DAILY [facility] Last Admin: 12/27/18 09:23 Dose: 1,000 units Cyanocobalamin (Vitamin B12) 1,000 mcg PO DAILY [facility] Last Admin: 12/27/18 09:21 Dose: 1,000 mcg Furosemide (Lasix) 40 mg PO BID [facility] Last Admin: 12/27/18 17:08 Dose: 40 mg Multivitamins/Minerals/Vitamin C (Tab-A-Prisca) 1 tab PO DAILY [facility] Last Admin: 12/27/18 09:26 Dose: 1 tab Ferrous Fumarate/Vitamin C (Vitron-C) Tabs Own Med 1 tab PO BID [facility] Last Admin: 12/27/18 17:10 Dose: 1 tab - Exam Quality Assessment: Supplemental Oxygen, DVT Prophylaxis General: No Acute Distress HEENT: Mucous Membr. Moist/[place] Neck: Trachea Midline, No JVD Lungs: Normal Respiratory Effort, Decreased Breath Sounds, Rhonchi (bilateral) Cardiovascular: Regular Rate, Regular Rhythm GI/Abdominal Exam: Soft, Non-Tender, No Distention (Male) Exam: Deferred Back Exam: Normal Inspection Extremities: Non-Tender, Pedal Edema Skin: Warm, Dry, Intact, Ecchymosis Neurological: No New Focal Deficit Psy/Mental Status: Normal Affect, Normal Mood - Problem List & Annotations (1) Pneumonia SNOMED Code(s): 301205911 Code(s): J18.9 - PNEUMONIA, UNSPECIFIED ORGANISM Status: Acute Priority: High Current Visit: Yes Qualifiers: Pneumonia type: due to unspecified organism Laterality: bilateral Lung location: lower lobe of lung Qualified Code(s): J18.1 - Lobar pneumonia, unspecified organism (2) COPD (chronic obstructive pulmonary disease) SNOMED Code(s): 05343410 Code(s): J44.9 - CHRONIC OBSTRUCTIVE PULMONARY DISEASE, UNSPECIFIED Status : Chronic Priority: High Current Visit: Yes Qualifiers: COPD type: COPD with acute lower respiratory infection Qualified Code(s): J44.0 - Chronic obstructive pulmonary disease with acute lower respiratory infection (3) Chronic GERD SNOMED Code(s): 985750115, 153846030 Code(s): K21.9 - GASTRO-ESOPHAGEAL REFLUX DISEASE WITHOUT ESOPHAGITIS Status: Chronic Priority: Medium Current Visit: No (4) Chronic diastolic (congestive) heart failure SNOMED Code(s): 509257006, 338452255 Code(s): I50.32 - CHRONIC DIASTOLIC (CONGESTIVE) HEART FAILURE Status: Chronic Priority: Medium Current Visit: No (5) Chronic kidney disease (CKD) SNOMED Code(s): 760683268 Code(s): N18.9 - CHRONIC KIDNEY DISEASE, UNSPECIFIED Status: Chronic Priority: High Current Visit: No Qualifiers: Chronic kidney disease stage: unspecified stage Qualified Code(s): N18.9 - Chronic kidney disease, unspecified (6) Chronic respiratory failure with hypoxia SNOMED Code(s): 535743498 Code(s): J96.11 - CHRONIC RESPIRATORY FAILURE WITH HYPOXIA Status: Chronic Priority: High Current Visit: No (7) Coronary artery disease SNOMED Code(s): 85420994 Code(s): I25.10 - ATHSCL HEART DISEASE OF [place] CORONARY ARTERY W/O ANG PCTRS Status: Chronic Priority: Medium Current Visit: No Qualifiers: Coronary Disease-Associated Artery/Lesion type: [place] artery [place] vs. transplanted heart: [place] heart Associated angina: without angina Qualified Code(s): I25.10 - Atherosclerotic heart disease of [place] coronary artery without angina pectoris (8) Diabetes mellitus SNOMED Code(s): 00033538 Code(s): E11.9 - TYPE 2 DIABETES MELLITUS WITHOUT COMPLICATIONS Status: Chronic Priority: Medium Current Visit: No (9) Dyslipidemia SNOMED Code(s): 990490672 Code(s): E78.5 - HYPERLIPIDEMIA, UNSPECIFIED Status: Chronic Priority: Medium Current Visit: No (10) Gout SNOMED Code(s): 47358757 Code(s): M10.9 - GOUT, UNSPECIFIED Status: Chronic Priority: Low Current Visit: No Qualifiers: Gout site: unspecified site Gout etiology: due to renal impairment Chronicity: chronic Presence of tophus: without tophus Qualified Code(s): M1A.30X0 - Chronic gout due to renal impairment, unspecified site, without tophus (tophi) (11) HTN, Benign hypertension SNOMED Code(s): 58076527 Code(s): I10 - ESSENTIAL (PRIMARY) HYPERTENSION Status: Chronic Priority : Medium Current Visit: No (12) Neuropathy SNOMED Code(s): 091120214 Code(s): G62.9 - POLYNEUROPATHY, UNSPECIFIED Status: Chronic Priority: Medium Current Visit: No (13) Obesity (BMI 30-39.9) SNOMED Code(s): 850151997, 480074253 Code(s): E66.9 - OBESITY, UNSPECIFIED Status: Chronic Priority: Medium Current Visit: No (14) Obstructive sleep apnea on CPAP SNOMED Code(s): 92661943 Code(s): G47.33 - OBSTRUCTIVE SLEEP APNEA (ADULT) (PEDIATRIC); Z99.89 - DEPENDENCE ON OTHER ENABLING MACHINES AND DEVICES Status: Chronic Priority: Low Current Visit: No Annotation/Comment:: (15) Osteoarthritis SNOMED Code(s): 044525300 Code(s): M19.90 - UNSPECIFIED OSTEOARTHRITIS, UNSPECIFIED SITE Status: Chronic Priority: Medium Current Visit: No (16) Oxygen dependent SNOMED Code(s): 262414632271 Code(s): Z99.81 - DEPENDENCE ON SUPPLEMENTAL OXYGEN Status: Chronic Priority: High Current Visit: No (17) Weakness generalized SNOMED Code(s): 29322404 Code(s): R53.1 - WEAKNESS Status: Chronic Priority: High Current Visit : No - Problem List Review Problem List Initiated/Reviewed/Updated: Yes - My Orders Last 24 Hours: My Active Orders 12/28/18 05:11 SEDIMENTATION RATE AUTO [HEME] Routine 12/28/18 08:00 Furosemide [Lasix] 40 mg PO BIDDIURETIC Insulin NPH Human Isophane [HumuLIN N] 30 unit SQ DAILY Sodium Chloride 0.9% [Saline Flush] 10 ml FLUSH Q12HR - Plan Plan:: 12/26/2018 patient is admitted to the services of Dr Montano for inpatient treatment of pneumonia and COPD exacerbation. Patient requires inpatient services due to immunocompromised state, WBC at 23,000 with sudden onset. Started on IV antibiotics. Blood cultures collected. patient is full code, wanted to stay in [place] for now unless his condition changes. Will recheck labs in the morning. Astrid Damon,GLASS [employer]ESSER 12/27/18 Dusty Seaman MD Continues coughing. Continue IV antibiotics and nebulizers. Add NPH insulin to treat cortisone induced hyperglycemia.
[2018-12-27] MEDS: Sodium Chloride 0.9% 10 ML Syringe FLUSH SCH (22:03)
[2018-12-28] MEDS: Sodium Chloride 0.9% 10 ML Syringe FLUSH PRN ×3 (05:02→22:58)
[2018-12-28] MEDS: cefTAZidime 1 GM Vial IVPUSH SCH ×3 (05:02→22:58)
[2018-12-28] MEDS: metroNIDAZOLE/Normal Saline 500 MG in Premix Bag 1 BAG IV SCH ×3 (05:02→22:57)
[2018-12-28] MEDS: Magnesium Oxide 400 MG Tab PO SCH ×2 (07:38→17:02)
[2018-12-28] MEDS: Gabapentin 300 MG Cap PO SCH ×3 (07:38→17:02)
[2018-12-28] MEDS: Isosorbide Mononitrate 60 MG Tab.ER PO SCH (07:39)
[2018-12-28] MEDS: Furosemide 40 MG Tab PO SCH ×2 (07:39→11:18)
[2018-12-28] MEDS: Carvedilol 12.5 MG Tab PO SCH ×2 (07:39→19:46)
[2018-12-28] MEDS: Tamsulosin 0.4 MG Cap.ER PO SCH (07:39)
[2018-12-28] MEDS: Omeprazole 20 MG Cap.CR PO SCH ×2 (07:39→17:02)
[2018-12-28] MEDS: Enoxaparin 30 MG/0.3 ML Syringe SUBCUT SCH (07:39)
[2018-12-28] MEDS: Allopurinol 100 MG Tab PO SCH (07:39)
[2018-12-28] MEDS: Polyvinyl Alcohol 1.4% Ophth Soln 15 ML Bottle EYEBOTH SCH ×3 (07:40→19:51)
[2018-12-28] MEDS: Potassium Chloride 10% 20 MEQ/15 ML Soln 15 ML UD Cup PO SCH (07:40)
[2018-12-28] MEDS: Hydrocortisone 2.5% Crm 30 GM Tube TOP SCH ×2 (07:41→19:52)
[2018-12-28] MEDS: Arformoterol 15 MCG/2 ML Neb Soln INH SCH ×2 (07:43→19:46)
[2018-12-28] MEDS: Albuterol/Ipratropium 3.0-0.5 MG/3 ML Neb Soln NEB SCH ×4 (07:43→19:36)
[2018-12-28] MEDS: Docusate Sodium 100 MG Cap PO SCH ×2 (07:43→17:02)
[2018-12-28] MEDS: Insulin Lispro 100 Units/ML 3 ML Vial SUBCUT SCH ×3 (07:44→17:02)
[2018-12-28] MEDS: Insulin Isophane NPH, Human 100 Units/ML 3 ML Vial SQ SCH (07:46)
[2018-12-28] MEDS: Sodium Chloride 0.9% 10 ML Syringe FLUSH SCH ×2 (07:51→19:54)
[2018-12-28] MEDS: methylPREDNISolone Sodium Succinate 40 MG/1 ML SDV IVPUSH SCH (07:51)
[2018-12-28 08:11] LABS: CHLORIDE,CL 97 mmol/L (98-107); SODIUM,NA 137 mmol/L (136-145)
[2018-12-28] MEDS: Levofloxacin/Dextrose 5%-Water 500 MG in Premix Bag 1 BAG IV SCH (12:03)
--- NOTE | 2018-12-28 18:27 | PCM.PN ---
- General Info Date of Service: 12/28/18 Admission Dx/Problem (Free Text): Admission Diagnosis/Problem Admission Diagnosis/Problem Pneumonia Functional Status: Reports: Pain Controlled, Tolerating Diet - Review of Systems General: Reports: Weakness HEENT: Reports: No Symptoms Pulmonary: Reports: Cough Cardiovascular: Reports: No Symptoms Gastrointestinal: Reports: No Symptoms Genitourinary: Reports: No Symptoms Musculoskeletal: Reports: No Symptoms Skin: Reports: No Symptoms Neurological: Reports: No Symptoms Psychiatric: Reports: No Symptoms - Patient Data Vitals - Most Recent: Last Vital Signs Temp 98.4 F 12/28/18 16:00 Pulse 89 12/28/18 16:00 Resp 17 12/28/18 16:00 BP 160/83 H 12/28/18 16:00 Pulse Ox 93 L 12/28/18 16:00 Weight - Most Recent: 273 lb 5.971 oz I&O - Last 24 Hours: Intake & Output 12/28/18 12/28/18 12/28/18 06:59 14:59 22:59 Intake Total 1540 Output Total 500 700 700 Balance -500 840 -700 Lab Results Last 24 Hours: Laboratory Results - last 24 hr 12/28/18 12/28/18 12/28/18 Range/Units 07:30 07:30 07:31 WBC 17.2 H (4.0-10.2) K/uL RBC 2.89 L (4.33-5.41) M/uL Hgb 9.9 L (13.1-16.8) g/dL Hct 30.1 L (39.0-49.0) % MCV 104.2 H (84.0-98.0) fL MCH 34.3 H (28.2-33.3) pg MCHC 32.9 (31.7-36.0) g/dL RDW 19.0 H (11.2-14.1) % Plt Count 183 (150-350) K/uL Neut % (Auto) 76.6 (45.0-80.0) % Lymph % (Auto) 12.4 (10.0-50.0) % [place] % (Auto) 10.8 (2.0-14.0) % Eos % (Auto) 0.1 (0.0-5.0) % Baso % (Auto) 0.1 (0.0-2.0) % Neut # (Auto) 13.18 H (1.40-7.00) K/uL Lymph # (Auto) 2.14 (0.50-3.50) K/uL [place] # (Auto) 1.86 H (0.00-1.00) K/uL Eos # (Auto) 0.01 (0.00-0.50) K/uL Baso # (Auto) 0.02 (0.00-0.20) K/uL ESR > 120 H (0-20) mm/hr Sodium 137 (136-145) mmol/L Potassium 3.8 (3.5-5.1) mmol/L Chloride 97 L (98-107) mmol/L Carbon Dioxide 30.9 (21.0-32.0) mmol/L BUN 28 H (7-18) mg/dL Creatinine 0.98 (0.51-1.17) mg/dL Est Cr Clr Drug Dosing TNP Estimated GFR (MDRD) > 60 mL/min Glucose 203 H (74-106) mg/dL POC Glucose 207 H (65-110) mg/dl Calcium 9.2 (8.5-10.1) mg/dL Total Bilirubin 0.3 (0.2-1.0) mg/dL AST 20 (15-37) U/L ALT 28 (12-78) U/L Alkaline Phosphatase 76 (46-116) IU/L C-Reactive Protein 14.6 H (<=0.9) mg/dL Total Protein 6.2 L (6.4-8.2) g/dL Albumin 2.3 L (3.4-5.0) g/dL 12/28/18 12/28/18 Range/Units 11:10 16:46 WBC (4.0-10.2) K/uL RBC (4.33-5.41) M/uL Hgb (13.1-16.8) g/dL Hct (39.0-49.0) % MCV (84.0-98.0) fL MCH (28.2-33.3) pg MCHC (31.7-36.0) g/dL RDW (11.2-14.1) % Plt Count (150-350) K/uL Neut % (Auto) (45.0-80.0) % Lymph % (Auto) (10.0-50.0) % [place] % (Auto) (2.0-14.0) % Eos % (Auto) (0.0-5.0) % Baso % (Auto) (0.0-2.0) % Neut # (Auto) (1.40-7.00) K/uL Lymph # (Auto) (0.50-3.50) K/uL [place] # (Auto) (0.00-1.00) K/uL Eos # (Auto) (0.00-0.50) K/uL Baso # (Auto) (0.00-0.20) K/uL ESR (0-20) mm/hr Sodium (136-145) mmol/L Potassium (3.5-5.1) mmol/L Chloride (98-107) mmol/L Carbon Dioxide (21.0-32.0) mmol/L BUN (7-18) mg/dL Creatinine (0.51-1.17) mg/dL Est Cr Clr Drug Dosing Estimated GFR (MDRD) mL/min Glucose (74-106) mg/dL POC Glucose 204 H 339 H* (65-110) mg/dl Calcium (8.5-10.1) mg/dL Total Bilirubin (0.2-1.0) mg/dL AST (15-37) U/L ALT (12-78) U/L Alkaline Phosphatase (46-116) IU/L C-Reactive Protein (<=0.9) mg/dL Total Protein (6.4-8.2) g/dL Albumin (3.4-5.0) g/dL Murali Results Last 24 Hours: Microbiology 12/26/18 11:51 Aerobic Blood Culture - Preliminary Blood - Venous - Lab Draw NO GROWTH AFTER 2 DAYS Anaerobic Blood Culture - Preliminary NO GROWTH AFTER 2 DAYS 12/26/18 11:40 Aerobic Blood Culture - Preliminary Blood - Venous NO GROWTH AFTER 2 DAYS Anaerobic Blood Culture - Preliminary NO GROWTH AFTER 2 DAYS 12/27/18 07:15 Mycoplasma Serology - Final Blood Med Orders - Current: Current Medications Acetaminophen (Tylenol) 650 mg PO Q4H PRN PRN Reason: Pain Last Admin: 12/27/18 14:35 Dose: 650 mg Albuterol/Ipratropium (Duoneb 3.0-0.5 Mg/3 Ml) 3 ml NEB QID [facility] Last Admin: 12/28/18 15:58 Dose: 3 ml Allopurinol (Zyloprim) 300 mg PO QAM [facility] Last Admin: 12/28/18 07:39 Dose: 300 mg Arformoterol Tartrate (Brovana) 15 mcg INH Q12HR [facility] Last Admin: 12/28/18 07:43 Dose: 15 mcg Artificial Tears (Liquitears 1.4% Ophth Soln) 1 ml EYEBOTH TID@0800,1200,2000 [facility] Last Admin: 12/28/18 11:18 Dose: 1 drop Carvedilol (Coreg) 12.5 mg PO Q12HR [facility] Last Admin: 12/28/18 07:39 Dose: 12.5 mg Ceftazidime (Fortaz) 1 gm IVPUSH Q8H [facility] Last Admin: 12/28/18 13:08 Dose: 1 gm Docusate Sodium (Colace) 100 mg PO BID [facility] Last Admin: 12/28/18 17:02 Dose: 100 mg Enoxaparin Sodium (Lovenox) 30 mg SUBCUT DAILY [facility] Last Admin: 12/28/18 07:39 Dose: 30 mg Furosemide (Lasix) 40 mg PO BIDDIURETIC [facility] Last Admin: 12/28/18 11:18 Dose: 40 mg Gabapentin (Neurontin) 300 mg PO TID [facility] Last Admin: 12/28/18 17:02 Dose: 300 mg Hydrocortisone (Proctozone-Hc 2.5% Crm) 1 gm TOP BID@0800,2000 [facility] Levofloxacin/Dextrose 500 mg/ (Premix) 100 mls @ 100 mls/hr IV Q24H [facility] Last Admin: 12/28/18 12:03 Dose: 100 mls/hr Metronidazole 500 mg/ Premix 100 mls @ 100 mls/hr IV Q8H [facility] Last Admin: 12/28/18 13:09 Dose: 100 mls/hr Insulin Glargine (Lantus) 20 unit SUBCUT BEDTIME [facility] Last Admin: 12/27/18 19:27 Dose: 20 unit Insulin Human Lispro (Humalog) 8 unit SUBCUT TID@0800,1200,1800 [facility] Last Admin: 12/28/18 17:02 Dose: 8 units Insulin Human NPH (Humulin N) 30 unit SQ DAILY [facility] Last Admin: 12/28/18 07:46 Dose: 30 unit Isosorbide Mononitrate (Imdur) 60 mg PO DAILY [facility] Last Admin: 12/28/18 07:39 Dose: 60 mg Magnesium Oxide (Magnesium Oxide) 400 mg PO BID [facility] Last Admin: 12/28/18 17:02 Dose: 400 mg Methylprednisolone Sodium Succinate (Solu-Medrol) 40 mg IVPUSH DAILY [facility] Last Admin: 12/28/18 07:51 Dose: 40 mg Omeprazole (Omeprazole) 20 mg PO BID [facility] Last Admin: 12/28/18 17:02 Dose: 20 mg Potassium Chloride (Potassium Chloride Solution) 20 meq PO DAILY [facility] Last Admin: 12/28/18 07:40 Dose: 20 meq Sodium Chloride (Saline Flush) 10 ml FLUSH ASDIRECTED PRN PRN Reason: Keep Vein Open Last Admin: 12/28/18 05:04 Dose: 10 ml Sodium Chloride (Saline Flush) 10 ml FLUSH Q12HR [facility] Last Admin: 12/28/18 07:51 Dose: 10 ml Tamsulosin HCl (Flomax) 0.4 mg PO DAILY [facility] Last Admin: 12/28/18 07:39 Dose: 0.4 mg Discontinued Medications Arformoterol Tartrate (Brovana) 15 mcg INH BID [facility] Budesonide (Pulmicort) 0.5 mg INH BID [facility] Budesonide (Pulmicort) 0.5 mg INH Q12HR [facility] Last Admin: 12/27/18 19:27 Dose: 0.5 mg Carvedilol (Coreg) 12.5 mg PO BID [facility] Cholecalciferol (Vitamin D3) 1,000 units PO DAILY [facility] Last Admin: 12/27/18 09:23 Dose: 1,000 units Cyanocobalamin (Vitamin B12) 1,000 mcg PO DAILY [facility] Last Admin: 12/27/18 09:21 Dose: 1,000 mcg Furosemide (Lasix) 40 mg PO BID [facility] Last Admin: 12/27/18 17:08 Dose: 40 mg Hydrocortisone (Proctozone-Hc 2.5% Crm) 1 gm TOP BID [facility] Last Admin: 12/28/18 07:41 Dose: 1 applic Multivitamins/Minerals/Vitamin C (Tab-A-Prisca) 1 tab PO DAILY [facility] Last Admin: 12/27/18 09:26 Dose: 1 tab Ferrous Fumarate/Vitamin C (Vitron-C) Tabs Own Med 1 tab PO BID [facility] Last Admin: 12/27/18 17:10 Dose: 1 tab - Exam Quality Assessment: Supplemental Oxygen General: Alert, Cooperative, No Acute Distress HEENT: Mucous Membr. Moist/[place] Neck: Trachea Midline, No JVD Lungs: Normal Respiratory Effort, Decreased Breath Sounds, Rhonchi (bilateral) Cardiovascular: Regular Rate, Regular Rhythm GI/Abdominal Exam: Soft, Non-Tender, No Distention (Male) Exam: Deferred Back Exam: Normal Inspection Extremities: Pedal Edema Skin: Warm, Dry, Intact, Ecchymosis Neurological: No New Focal Deficit Psy/Mental Status: Alert, Normal Affect, Normal Mood - Problem List & Annotations (1) Pneumonia SNOMED Code(s): 808704183 Code(s): J18.9 - PNEUMONIA, UNSPECIFIED ORGANISM Status: Acute Priority: High Current Visit: Yes Qualifiers: Pneumonia type: due to unspecified organism Laterality: bilateral Lung location: lower lobe of lung Qualified Code(s): J18.1 - Lobar pneumonia, unspecified organism (2) COPD (chronic obstructive pulmonary disease) SNOMED Code(s): 78974965 Code(s): J44.9 - CHRONIC OBSTRUCTIVE PULMONARY DISEASE, UNSPECIFIED Status : Chronic Priority: High Current Visit: Yes Qualifiers: COPD type: COPD with acute lower respiratory infection Qualified Code(s): J44.0 - Chronic obstructive pulmonary disease with acute lower respiratory infection (3) Chronic GERD SNOMED Code(s): 112647665, 137295004 Code(s): K21.9 - GASTRO-ESOPHAGEAL REFLUX DISEASE WITHOUT ESOPHAGITIS Status: Chronic Priority: Medium Current Visit: No (4) Chronic diastolic (congestive) heart failure SNOMED Code(s): 245493937, 211969747 Code(s): I50.32 - CHRONIC DIASTOLIC (CONGESTIVE) HEART FAILURE Status: Chronic Priority: Medium Current Visit: No (5) Chronic kidney disease (CKD) SNOMED Code(s): 170407421 Code(s): N18.9 - CHRONIC KIDNEY DISEASE, UNSPECIFIED Status: Chronic Priority: High Current Visit: No Qualifiers: Chronic kidney disease stage: unspecified stage Qualified Code(s): N18.9 - Chronic kidney disease, unspecified (6) Chronic respiratory failure with hypoxia SNOMED Code(s): 568066319 Code(s): J96.11 - CHRONIC RESPIRATORY FAILURE WITH HYPOXIA Status: Chronic Priority: High Current Visit: No (7) Coronary artery disease SNOMED Code(s): 77455240 Code(s): I25.10 - ATHSCL HEART DISEASE OF [place] CORONARY ARTERY W/O ANG PCTRS Status: Chronic Priority: Medium Current Visit: No Qualifiers: Coronary Disease-Associated Artery/Lesion type: [place] artery [place] vs. transplanted heart: [place] heart Associated angina: without angina Qualified Code(s): I25.10 - Atherosclerotic heart disease of [place] coronary artery without angina pectoris (8) Diabetes mellitus SNOMED Code(s): 63255015 Code(s): E11.9 - TYPE 2 DIABETES MELLITUS WITHOUT COMPLICATIONS Status: Chronic Priority: Medium Current Visit: No (9) Dyslipidemia SNOMED Code(s): 052130226 Code(s): E78.5 - HYPERLIPIDEMIA, UNSPECIFIED Status: Chronic Priority: Medium Current Visit: No (10) Gout SNOMED Code(s): 43377626 Code(s): M10.9 - GOUT, UNSPECIFIED Status: Chronic Priority: Low Current Visit: No Qualifiers: Gout site: unspecified site Gout etiology: due to renal impairment Chronicity: chronic Presence of tophus: without tophus Qualified Code(s): M1A.30X0 - Chronic gout due to renal impairment, unspecified site, without tophus (tophi) (11) HTN, Benign hypertension SNOMED Code(s): 88967156 Code(s): I10 - ESSENTIAL (PRIMARY) HYPERTENSION Status: Chronic Priority : Medium Current Visit: No (12) Neuropathy SNOMED Code(s): 904012333 Code(s): G62.9 - POLYNEUROPATHY, UNSPECIFIED Status: Chronic Priority: Medium Current Visit: No (13) Obesity (BMI 30-39.9) SNOMED Code(s): 127416427, 793892986 Code(s): E66.9 - OBESITY, UNSPECIFIED Status: Chronic Priority: Medium Current Visit: No (14) Obstructive sleep apnea on CPAP SNOMED Code(s): 79515411 Code(s): G47.33 - OBSTRUCTIVE SLEEP APNEA (ADULT) (PEDIATRIC); Z99.89 - DEPENDENCE ON OTHER ENABLING MACHINES AND DEVICES Status: Chronic Priority: Low Current Visit: No Annotation/Comment:: (15) Osteoarthritis SNOMED Code(s): 054009390 Code(s): M19.90 - UNSPECIFIED OSTEOARTHRITIS, UNSPECIFIED SITE Status: Chronic Priority: Medium Current Visit: No (16) Oxygen dependent SNOMED Code(s): 797511180120 Code(s): Z99.81 - DEPENDENCE ON SUPPLEMENTAL OXYGEN Status: Chronic Priority: High Current Visit: No (17) Weakness generalized SNOMED Code(s): 29136430 Code(s): R53.1 - WEAKNESS Status: Chronic Priority: High Current Visit : No - Problem List Review Problem List Initiated/Reviewed/Updated: Yes - My Orders Last 24 Hours: My Active Orders 12/28/18 08:00 Furosemide [Lasix] 40 mg PO BIDDIURETIC Insulin NPH Human Isophane [HumuLIN N] 30 unit SQ DAILY Sodium Chloride 0.9% [Saline Flush] 10 ml FLUSH Q12HR - Plan Plan:: 12/26/2018 patient is admitted to the services of Dr Montano for inpatient treatment of pneumonia and COPD exacerbation. Patient requires inpatient services due to immunocompromised state, WBC at 23,000 with sudden onset. Started on IV antibiotics. Blood cultures collected. patient is full code, wanted to stay in [place] for now unless his condition changes. Will recheck labs in the morning. Astrid Damon,CYNTHIA 12/27/18 Dusty Seaman MD Continues coughing. Continue IV antibiotics and nebulizers. Add NPH insulin to treat cortisone induced hyperglycemia. 12/28/18 Dusty Seaman MD Still coughing. Continue IV antibiotics. Blood sugars improved.
[2018-12-28] MEDS: Insulin Glarg,Human.Rec.Analog 100 UNIT/ML ML SUBCUT SCH (19:51)
[2018-12-29] MEDS: metroNIDAZOLE/Normal Saline 500 MG in Premix Bag 1 BAG IV SCH ×2 (05:37→14:12)
[2018-12-29] MEDS: Sodium Chloride 0.9% 10 ML Syringe FLUSH PRN ×3 (05:37→22:18)
[2018-12-29] MEDS: cefTAZidime 1 GM Vial IVPUSH SCH ×3 (05:37→22:16)
[2018-12-29] MEDS: Arformoterol 15 MCG/2 ML Neb Soln INH SCH ×2 (07:45→19:23)
[2018-12-29] MEDS: methylPREDNISolone Sodium Succinate 40 MG/1 ML SDV IVPUSH SCH (07:45)
[2018-12-29] MEDS: Hydrocortisone 2.5% Crm 30 GM Tube TOP SCH ×2 (07:45→19:25)
[2018-12-29] MEDS: Albuterol/Ipratropium 3.0-0.5 MG/3 ML Neb Soln NEB SCH ×4 (07:45→19:23)
[2018-12-29] MEDS: Potassium Chloride 10% 20 MEQ/15 ML Soln 15 ML UD Cup PO SCH (07:46)
[2018-12-29] MEDS: Carvedilol 12.5 MG Tab PO SCH ×2 (07:49→19:22)
[2018-12-29] MEDS: Gabapentin 300 MG Cap PO SCH ×3 (07:50→17:43)
[2018-12-29] MEDS: Enoxaparin 30 MG/0.3 ML Syringe SUBCUT SCH (07:50)
[2018-12-29] MEDS: Docusate Sodium 100 MG Cap PO SCH ×2 (07:50→17:42)
[2018-12-29] MEDS: Allopurinol 100 MG Tab PO SCH (07:55)
[2018-12-29] MEDS: Omeprazole 20 MG Cap.CR PO SCH ×2 (07:55→17:43)
[2018-12-29] MEDS: Magnesium Oxide 400 MG Tab PO SCH ×2 (07:55→17:43)
[2018-12-29] MEDS: Furosemide 40 MG Tab PO SCH ×2 (07:55→11:27)
[2018-12-29] MEDS: Isosorbide Mononitrate 60 MG Tab.ER PO SCH (07:56)
[2018-12-29] MEDS: Tamsulosin 0.4 MG Cap.ER PO SCH (07:56)
[2018-12-29] MEDS: Polyvinyl Alcohol 1.4% Ophth Soln 15 ML Bottle EYEBOTH SCH ×3 (07:57→19:25)
[2018-12-29] MEDS: Sodium Chloride 0.9% 10 ML Syringe FLUSH SCH ×2 (07:58→19:26)
[2018-12-29] MEDS: Insulin Isophane NPH, Human 100 Units/ML 3 ML Vial SQ SCH (07:59)
[2018-12-29] MEDS: Insulin Lispro 100 Units/ML 3 ML Vial SUBCUT SCH ×3 (08:00→17:43)
[2018-12-29 08:12] LABS: CHLORIDE,CL 98 mmol/L (98-107); SODIUM,NA 138 mmol/L (136-145)
[2018-12-29] MEDS: Levofloxacin/Dextrose 5%-Water 500 MG in Premix Bag 1 BAG IV SCH (13:02)
--- NOTE | 2018-12-29 16:46 | PCM.PN ---
- General Info Date of Service: 12/29/18 Admission Dx/Problem (Free Text): Admission Diagnosis/Problem Admission Diagnosis/Problem Pneumonia Functional Status: Reports: Pain Controlled - Review of Systems General: Reports: No Symptoms HEENT: Reports: No Symptoms Pulmonary: Reports: Cough Cardiovascular: Reports: No Symptoms Gastrointestinal: Reports: No Symptoms Genitourinary: Reports: No Symptoms Musculoskeletal: Reports: No Symptoms Skin: Reports: No Symptoms Neurological: Reports: No Symptoms Psychiatric: Reports: No Symptoms - Patient Data Vitals - Most Recent: Last Vital Signs Temp 97.4 F 12/29/18 12:00 Pulse 85 12/29/18 12:00 Resp 17 12/29/18 12:00 BP 114/53 L 12/29/18 12:00 Pulse Ox 94 L 12/29/18 12:00 Weight - Most Recent: 274 lb 14.4 oz I&O - Last 24 Hours: Intake & Output 12/29/18 12/29/18 12/29/18 06:59 14:59 22:59 Intake Total 350 1290 200 Output Total 650 700 500 Balance -300 590 -300 Lab Results Last 24 Hours: Laboratory Results - last 24 hr 12/28/18 12/29/18 12/29/18 Range/Units 16:46 07:14 07:25 WBC 15.5 H (4.0-10.2) K/uL RBC 2.67 L (4.33-5.41) M/uL Hgb 9.1 L (13.1-16.8) g/dL Hct 27.9 L (39.0-49.0) % MCV 104.5 H (84.0-98.0) fL MCH 34.1 H (28.2-33.3) pg MCHC 32.6 (31.7-36.0) g/dL RDW 18.8 H (11.2-14.1) % Plt Count 183 (150-350) K/uL Neut % (Auto) 73.0 (45.0-80.0) % Lymph % (Auto) 15.3 (10.0-50.0) % [place] % (Auto) 11.4 (2.0-14.0) % Eos % (Auto) 0.2 (0.0-5.0) % Baso % (Auto) 0.1 (0.0-2.0) % Neut # (Auto) 11.31 H (1.40-7.00) K/uL Lymph # (Auto) 2.37 (0.50-3.50) K/uL [place] # (Auto) 1.77 H (0.00-1.00) K/uL Eos # (Auto) 0.03 (0.00-0.50) K/uL Baso # (Auto) 0.02 (0.00-0.20) K/uL Sodium (136-145) mmol/L Potassium (3.5-5.1) mmol/L Chloride (98-107) mmol/L Carbon Dioxide (21.0-32.0) mmol/L BUN (7-18) mg/dL Creatinine (0.51-1.17) mg/dL Est Cr Clr Drug Dosing mL/min Estimated GFR (MDRD) mL/min Glucose (74-106) mg/dL POC Glucose 339 H* 154 H (65-110) mg/dl Calcium (8.5-10.1) mg/dL Total Bilirubin (0.2-1.0) mg/dL AST (15-37) U/L ALT (12-78) U/L Alkaline Phosphatase (46-116) IU/L C-Reactive Protein (<=0.9) mg/dL Total Protein (6.4-8.2) g/dL Albumin (3.4-5.0) g/dL 12/29/18 12/29/18 Range/Units 07:25 11:12 WBC (4.0-10.2) K/uL RBC (4.33-5.41) M/uL Hgb (13.1-16.8) g/dL Hct (39.0-49.0) % MCV (84.0-98.0) fL MCH (28.2-33.3) pg MCHC (31.7-36.0) g/dL RDW (11.2-14.1) % Plt Count (150-350) K/uL Neut % (Auto) (45.0-80.0) % Lymph % (Auto) (10.0-50.0) % [place] % (Auto) (2.0-14.0) % Eos % (Auto) (0.0-5.0) % Baso % (Auto) (0.0-2.0) % Neut # (Auto) (1.40-7.00) K/uL Lymph # (Auto) (0.50-3.50) K/uL [place] # (Auto) (0.00-1.00) K/uL Eos # (Auto) (0.00-0.50) K/uL Baso # (Auto) (0.00-0.20) K/uL Sodium 138 (136-145) mmol/L Potassium 3.6 (3.5-5.1) mmol/L Chloride 98 (98-107) mmol/L Carbon Dioxide 30.2 (21.0-32.0) mmol/L BUN 34 H (7-18) mg/dL Creatinine 0.99 (0.51-1.17) mg/dL Est Cr Clr Drug Dosing 63.12 mL/min Estimated GFR (MDRD) > 60 mL/min Glucose 151 H (74-106) mg/dL POC Glucose 200 H (65-110) mg/dl Calcium 9.0 (8.5-10.1) mg/dL Total Bilirubin 0.3 (0.2-1.0) mg/dL AST 16 (15-37) U/L ALT 26 (12-78) U/L Alkaline Phosphatase 68 (46-116) IU/L C-Reactive Protein 7.9 H (<=0.9) mg/dL Total Protein 5.7 L (6.4-8.2) g/dL Albumin 2.2 L (3.4-5.0) g/dL Murali Results Last 24 Hours: Microbiology 12/26/18 11:51 Aerobic Blood Culture - Preliminary Blood - Venous - Lab Draw NO GROWTH AFTER 3 DAYS Anaerobic Blood Culture - Preliminary NO GROWTH AFTER 3 DAYS 12/26/18 11:40 Aerobic Blood Culture - Preliminary Blood - Venous NO GROWTH AFTER 3 DAYS Anaerobic Blood Culture - Preliminary NO GROWTH AFTER 3 DAYS 12/27/18 07:15 Mycoplasma Serology - Final Blood Med Orders - Current: Current Medications Acetaminophen (Tylenol) 650 mg PO Q4H PRN PRN Reason: Pain Last Admin: 12/27/18 14:35 Dose: 650 mg Albuterol/Ipratropium (Duoneb 3.0-0.5 Mg/3 Ml) 3 ml NEB QID [facility] Last Admin: 12/29/18 15:43 Dose: 3 ml Allopurinol (Zyloprim) 300 mg PO QAM [facility] Last Admin: 12/29/18 07:55 Dose: 300 mg Arformoterol Tartrate (Brovana) 15 mcg INH Q12HR [facility] Last Admin: 12/29/18 07:45 Dose: 15 mcg Artificial Tears (Liquitears 1.4% Ophth Soln) 1 ml EYEBOTH TID@0800,1200,2000 [facility] Last Admin: 12/29/18 11:27 Dose: 1 drop Carvedilol (Coreg) 12.5 mg PO Q12HR [facility] Last Admin: 12/29/18 07:49 Dose: 12.5 mg Ceftazidime (Fortaz) 1 gm IVPUSH Q8H [facility] Last Admin: 12/29/18 14:12 Dose: 1 gm Docusate Sodium (Colace) 100 mg PO BID [facility] Last Admin: 12/29/18 07:50 Dose: 100 mg Enoxaparin Sodium (Lovenox) 30 mg SUBCUT DAILY [facility] Last Admin: 12/29/18 07:50 Dose: 30 mg Furosemide (Lasix) 40 mg IVPUSH BIDDIURETIC [facility] Gabapentin (Neurontin) 300 mg PO TID [facility] Last Admin: 12/29/18 11:27 Dose: 300 mg Hydrocortisone (Proctozone-Hc 2.5% Crm) 1 gm TOP BID@0800,2000 [facility] Last Admin: 12/29/18 07:45 Dose: 1 applic Insulin Glargine (Lantus) 20 unit SUBCUT BEDTIME [facility] Last Admin: 12/28/18 19:51 Dose: 20 unit Insulin Human Lispro (Humalog) 8 unit SUBCUT TID@0800,1200,1800 [facility] Last Admin: 12/29/18 11:29 Dose: 8 units Insulin Human NPH (Humulin N) 30 unit SQ DAILY [facility] Last Admin: 12/29/18 07:59 Dose: 30 unit Isosorbide Mononitrate (Imdur) 60 mg PO DAILY [facility] Last Admin: 12/29/18 07:56 Dose: 60 mg Magnesium Oxide (Magnesium Oxide) 400 mg PO BID [facility] Last Admin: 12/29/18 07:55 Dose: 400 mg Methylprednisolone Sodium Succinate (Solu-Medrol) 40 mg IVPUSH DAILY [facility] Last Admin: 12/29/18 07:45 Dose: 40 mg Metronidazole (Flagyl) 500 mg PO TID@0800,1400,2000 [facility] Omeprazole (Omeprazole) 20 mg PO BID [facility] Last Admin: 12/29/18 07:55 Dose: 20 mg Potassium Chloride (Potassium Chloride Solution) 20 meq PO DAILY [facility] Last Admin: 12/29/18 07:46 Dose: 20 meq Sodium Chloride (Saline Flush) 10 ml FLUSH ASDIRECTED PRN PRN Reason: Keep Vein Open Last Admin: 12/29/18 14:10 Dose: 10 ml Sodium Chloride (Saline Flush) 10 ml FLUSH Q12HR [facility] Last Admin: 12/29/18 07:58 Dose: 10 ml Tamsulosin HCl (Flomax) 0.4 mg PO DAILY [facility] Last Admin: 12/29/18 07:56 Dose: 0.4 mg Discontinued Medications Arformoterol Tartrate (Brovana) 15 mcg INH BID [facility] Budesonide (Pulmicort) 0.5 mg INH BID [facility] Budesonide (Pulmicort) 0.5 mg INH Q12HR [facility] Last Admin: 12/27/18 19:27 Dose: 0.5 mg Carvedilol (Coreg) 12.5 mg PO BID [facility] Cholecalciferol (Vitamin D3) 1,000 units PO DAILY [facility] Last Admin: 12/27/18 09:23 Dose: 1,000 units Cyanocobalamin (Vitamin B12) 1,000 mcg PO DAILY [facility] Last Admin: 12/27/18 09:21 Dose: 1,000 mcg Furosemide (Lasix) 40 mg PO BID [facility] Last Admin: 12/27/18 17:08 Dose: 40 mg Furosemide (Lasix) 40 mg PO BIDDIURETIC [facility] Last Admin: 12/29/18 11:27 Dose: 40 mg Hydrocortisone (Proctozone-Hc 2.5% Crm) 1 gm TOP BID [facility] Last Admin: 12/28/18 07:41 Dose: 1 applic Levofloxacin/Dextrose 500 mg/ (Premix) 100 mls @ 100 mls/hr IV Q24H [facility] Last Admin: 12/29/18 13:02 Dose: 100 mls/hr Metronidazole 500 mg/ Premix 100 mls @ 100 mls/hr IV Q8H [facility] Last Admin: 12/29/18 14:12 Dose: 100 mls/hr Multivitamins/Minerals/Vitamin C (Tab-A-Prisca) 1 tab PO DAILY [facility] Last Admin: 12/27/18 09:26 Dose: 1 tab Ferrous Fumarate/Vitamin C (Vitron-C) Tabs Own Med 1 tab PO BID [facility] Last Admin: 12/27/18 17:10 Dose: 1 tab - Exam Quality Assessment: Supplemental Oxygen, Urine Catheter, DVT Prophylaxis General: Alert, Cooperative, No Acute Distress HEENT: Mucous Membr. Moist/[place] Neck: Trachea Midline, No JVD Lungs: Normal Respiratory Effort, Decreased Breath Sounds Cardiovascular: Regular Rate, Regular Rhythm GI/Abdominal Exam: Soft, Non-Tender, No Distention (Male) Exam: Deferred Back Exam: Normal Inspection Extremities: Non-Tender, Pedal Edema Skin: Warm, Dry, Intact, Ecchymosis Neurological: No New Focal Deficit, Other (weakness generalized) Psy/Mental Status: Alert, Normal Affect, Normal Mood - Problem List & Annotations (1) Pneumonia SNOMED Code(s): 335305537 Code(s): J18.9 - PNEUMONIA, UNSPECIFIED ORGANISM Status: Acute Priority: High Current Visit: Yes Qualifiers: Pneumonia type: due to unspecified organism Laterality: bilateral Lung location: lower lobe of lung Qualified Code(s): J18.1 - Lobar pneumonia, unspecified organism (2) COPD (chronic obstructive pulmonary disease) SNOMED Code(s): 54351987 Code(s): J44.9 - CHRONIC OBSTRUCTIVE PULMONARY DISEASE, UNSPECIFIED Status : Chronic Priority: High Current Visit: Yes Qualifiers: COPD type: COPD with acute lower respiratory infection Qualified Code(s): J44.0 - Chronic obstructive pulmonary disease with acute lower respiratory infection (3) Chronic GERD SNOMED Code(s): 583041889, 250301625 Code(s): K21.9 - GASTRO-ESOPHAGEAL REFLUX DISEASE WITHOUT ESOPHAGITIS Status: Chronic Priority: Medium Current Visit: No (4) Chronic diastolic (congestive) heart failure SNOMED Code(s): 729684905, 335671881 Code(s): I50.32 - CHRONIC DIASTOLIC (CONGESTIVE) HEART FAILURE Status: Chronic Priority: Medium Current Visit: No (5) Chronic kidney disease (CKD) SNOMED Code(s): 973127979 Code(s): N18.9 - CHRONIC KIDNEY DISEASE, UNSPECIFIED Status: Chronic Priority: High Current Visit: No Qualifiers: Chronic kidney disease stage: unspecified stage Qualified Code(s): N18.9 - Chronic kidney disease, unspecified (6) Chronic respiratory failure with hypoxia SNOMED Code(s): 701305508 Code(s): J96.11 - CHRONIC RESPIRATORY FAILURE WITH HYPOXIA Status: Chronic Priority: High Current Visit: No (7) Coronary artery disease SNOMED Code(s): 94340488 Code(s): I25.10 - ATHSCL HEART DISEASE OF [place] CORONARY ARTERY W/O ANG PCTRS Status: Chronic Priority: Medium Current Visit: No Qualifiers: Coronary Disease-Associated Artery/Lesion type: [place] artery [place] vs. transplanted heart: [place] heart Associated angina: without angina Qualified Code(s): I25.10 - Atherosclerotic heart disease of [place] coronary artery without angina pectoris (8) Diabetes mellitus SNOMED Code(s): 47557792 Code(s): E11.9 - TYPE 2 DIABETES MELLITUS WITHOUT COMPLICATIONS Status: Chronic Priority: Medium Current Visit: No (9) Dyslipidemia SNOMED Code(s): 368333235 Code(s): E78.5 - HYPERLIPIDEMIA, UNSPECIFIED Status: Chronic Priority: Medium Current Visit: No (10) Gout SNOMED Code(s): 52730460 Code(s): M10.9 - GOUT, UNSPECIFIED Status: Chronic Priority: Low Current Visit: No Qualifiers: Gout site: unspecified site Gout etiology: due to renal impairment Chronicity: chronic Presence of tophus: without tophus Qualified Code(s): M1A.30X0 - Chronic gout due to renal impairment, unspecified site, without tophus (tophi) (11) HTN, Benign hypertension SNOMED Code(s): 00904944 Code(s): I10 - ESSENTIAL (PRIMARY) HYPERTENSION Status: Chronic Priority : Medium Current Visit: No (12) Neuropathy SNOMED Code(s): 087263185 Code(s): G62.9 - POLYNEUROPATHY, UNSPECIFIED Status: Chronic Priority: Medium Current Visit: No (13) Obesity (BMI 30-39.9) SNOMED Code(s): 084570618, 480627300 Code(s): E66.9 - OBESITY, UNSPECIFIED Status: Chronic Priority: Medium Current Visit: No (14) Obstructive sleep apnea on CPAP SNOMED Code(s): 60887957 Code(s): G47.33 - OBSTRUCTIVE SLEEP APNEA (ADULT) (PEDIATRIC); Z99.89 - DEPENDENCE ON OTHER ENABLING MACHINES AND DEVICES Status: Chronic Priority: Low Current Visit: No Annotation/Comment:: (15) Osteoarthritis SNOMED Code(s): 017597708 Code(s): M19.90 - UNSPECIFIED OSTEOARTHRITIS, UNSPECIFIED SITE Status: Chronic Priority: Medium Current Visit: No (16) Oxygen dependent SNOMED Code(s): 952581051189 Code(s): Z99.81 - DEPENDENCE ON SUPPLEMENTAL OXYGEN Status: Chronic Priority: High Current Visit: No (17) Weakness generalized SNOMED Code(s): 20288250 Code(s): R53.1 - WEAKNESS Status: Chronic Priority: High Current Visit : No - Problem List Review Problem List Initiated/Reviewed/Updated: Yes - My Orders Last 24 Hours: My Active Orders 12/29/18 20:00 metroNIDAZOLE [Flagyl] 500 mg PO TID@0800,1400,2000 12/30/18 08:00 Furosemide [Lasix] 40 mg IVPUSH BIDDIURETIC 12/30/18 12:00 levoFLOXacin [Levaquin] 500 mg PO DAILY@1200 - Plan Plan:: 12/26/2018 patient is admitted to the services of Dr Montano for inpatient treatment of pneumonia and COPD exacerbation. Patient requires inpatient services due to immunocompromised state, WBC at 23,000 with sudden onset. Started on IV antibiotics. Blood cultures collected. patient is full code, wanted to stay in [place] for now unless his condition changes. Will recheck labs in the morning. Astrid Damon,CYNTHIA 12/27/18 Dusty Seaman MD Continues coughing. Continue IV antibiotics and nebulizers. Add NPH insulin to treat cortisone induced hyperglycemia. 12/28/18 Dusty Seaman MD Still coughing. Continue IV antibiotics. Blood sugars improved. 12/29/18 Dusty Seaman MD Still coughing but feeling better. Continue medical therapy.
[2018-12-29] MEDS: Insulin Glarg,Human.Rec.Analog 100 UNIT/ML ML SUBCUT SCH (19:23)
[2018-12-29] MEDS: metroNIDAZOLE 500 MG Tab PO SCH (19:23)
[2018-12-30] MEDS: cefTAZidime 1 GM Vial IVPUSH SCH ×3 (06:24→21:33)
[2018-12-30 08:03] LABS: CHLORIDE,CL 100 mmol/L (98-107); SODIUM,NA 138 mmol/L (136-145)
[2018-12-30] MEDS: Albuterol/Ipratropium 3.0-0.5 MG/3 ML Neb Soln NEB SCH ×4 (08:39→19:14)
[2018-12-30] MEDS: Sodium Chloride 0.9% 10 ML Syringe FLUSH SCH ×2 (08:39→19:15)
[2018-12-30] MEDS: Arformoterol 15 MCG/2 ML Neb Soln INH SCH ×2 (08:39→19:14)
[2018-12-30] MEDS: Potassium Chloride 10% 20 MEQ/15 ML Soln 15 ML UD Cup PO SCH (08:40)
[2018-12-30] MEDS: methylPREDNISolone Sodium Succinate 40 MG/1 ML SDV IVPUSH SCH (08:40)
[2018-12-30] MEDS: Hydrocortisone 2.5% Crm 30 GM Tube TOP SCH ×2 (08:40→19:15)
[2018-12-30] MEDS: Furosemide 40 MG/4 ML VIAL IVPUSH SCH ×2 (08:40→11:47)
[2018-12-30] MEDS: Allopurinol 100 MG Tab PO SCH (08:41)
[2018-12-30] MEDS: metroNIDAZOLE 500 MG Tab PO SCH ×3 (08:42→19:13)
[2018-12-30] MEDS: Gabapentin 300 MG Cap PO SCH ×3 (08:42→17:28)
[2018-12-30] MEDS: Magnesium Oxide 400 MG Tab PO SCH ×2 (08:42→17:28)
[2018-12-30] MEDS: Tamsulosin 0.4 MG Cap.ER PO SCH (08:43)
[2018-12-30] MEDS: Isosorbide Mononitrate 60 MG Tab.ER PO SCH (08:43)
[2018-12-30] MEDS: Carvedilol 12.5 MG Tab PO SCH ×2 (08:43→19:14)
[2018-12-30] MEDS: Omeprazole 20 MG Cap.CR PO SCH ×2 (08:44→17:29)
[2018-12-30] MEDS: Docusate Sodium 100 MG Cap PO SCH ×2 (08:44→17:29)
[2018-12-30] MEDS: Enoxaparin 30 MG/0.3 ML Syringe SUBCUT SCH (08:44)
[2018-12-30] MEDS: Polyvinyl Alcohol 1.4% Ophth Soln 15 ML Bottle EYEBOTH SCH ×3 (08:46→19:14)
[2018-12-30] MEDS: Insulin Lispro 100 Units/ML 3 ML Vial SUBCUT SCH ×3 (08:47→17:29)
[2018-12-30] MEDS: Insulin Isophane NPH, Human 100 Units/ML 3 ML Vial SQ SCH (08:48)
--- NOTE | 2018-12-30 08:55 | PCM.PN ---
- General Info Date of Service: 12/30/18 Admission Dx/Problem (Free Text): Admission Diagnosis/Problem Admission Diagnosis/Problem Pneumonia Functional Status: Reports: Pain Controlled, Tolerating Diet - Review of Systems General: Reports: Weakness HEENT: Reports: No Symptoms Pulmonary: Reports: Cough Cardiovascular: Reports: No Symptoms Gastrointestinal: Reports: No Symptoms Genitourinary: Reports: No Symptoms Musculoskeletal: Reports: No Symptoms Skin: Reports: Bruising Neurological: Reports: No Symptoms Psychiatric: Reports: No Symptoms - Patient Data Vitals - Most Recent: Last Vital Signs Temp 97.7 F 12/29/18 19:21 Pulse 80 12/30/18 08:43 Resp 21 H 12/29/18 19:21 BP 152/67 H 12/30/18 08:43 Pulse Ox 99 12/29/18 19:21 Weight - Most Recent: 274 lb 14.4 oz I&O - Last 24 Hours: Intake & Output 12/29/18 12/30/18 12/30/18 22:59 06:59 14:59 Intake Total 1080 50 840 Output Total 1000 500 Balance 80 -450 840 Lab Results Last 24 Hours: Laboratory Results - last 24 hr 12/29/18 12/29/18 12/30/18 Range/Units 11:12 16:44 06:52 WBC 14.0 H (4.0-10.2) K/uL RBC 2.77 L (4.33-5.41) M/uL Hgb 9.5 L (13.1-16.8) g/dL Hct 28.8 L (39.0-49.0) % MCV 104.0 H (84.0-98.0) fL MCH 34.3 H (28.2-33.3) pg MCHC 33.0 (31.7-36.0) g/dL RDW 19.0 H (11.2-14.1) % Plt Count 207 (150-350) K/uL Neut % (Auto) 67.7 (45.0-80.0) % Lymph % (Auto) 19.7 (10.0-50.0) % [place] % (Auto) 12.2 (2.0-14.0) % Eos % (Auto) 0.2 (0.0-5.0) % Baso % (Auto) 0.2 (0.0-2.0) % Neut # (Auto) 9.48 H (1.40-7.00) K/uL Lymph # (Auto) 2.75 (0.50-3.50) K/uL [place] # (Auto) 1.70 H (0.00-1.00) K/uL Eos # (Auto) 0.03 (0.00-0.50) K/uL Baso # (Auto) 0.03 (0.00-0.20) K/uL Sodium (136-145) mmol/L Potassium (3.5-5.1) mmol/L Chloride (98-107) mmol/L Carbon Dioxide (21.0-32.0) mmol/L BUN (7-18) mg/dL Creatinine (0.51-1.17) mg/dL Est Cr Clr Drug Dosing mL/min Estimated GFR (MDRD) mL/min Glucose (74-106) mg/dL POC Glucose 200 H 331 H* (65-110) mg/dl Calcium (8.5-10.1) mg/dL Total Bilirubin (0.2-1.0) mg/dL AST (15-37) U/L ALT (12-78) U/L Alkaline Phosphatase (46-116) IU/L C-Reactive Protein (<=0.9) mg/dL Total Protein (6.4-8.2) g/dL Albumin (3.4-5.0) g/dL 12/30/18 12/30/18 Range/Units 06:52 07:14 WBC (4.0-10.2) K/uL RBC (4.33-5.41) M/uL Hgb (13.1-16.8) g/dL Hct (39.0-49.0) % MCV (84.0-98.0) fL MCH (28.2-33.3) pg MCHC (31.7-36.0) g/dL RDW (11.2-14.1) % Plt Count (150-350) K/uL Neut % (Auto) (45.0-80.0) % Lymph % (Auto) (10.0-50.0) % [place] % (Auto) (2.0-14.0) % Eos % (Auto) (0.0-5.0) % Baso % (Auto) (0.0-2.0) % Neut # (Auto) (1.40-7.00) K/uL Lymph # (Auto) (0.50-3.50) K/uL [place] # (Auto) (0.00-1.00) K/uL Eos # (Auto) (0.00-0.50) K/uL Baso # (Auto) (0.00-0.20) K/uL Sodium 138 (136-145) mmol/L Potassium 3.9 (3.5-5.1) mmol/L Chloride 100 (98-107) mmol/L Carbon Dioxide 29.8 (21.0-32.0) mmol/L BUN 36 H (7-18) mg/dL Creatinine 0.98 (0.51-1.17) mg/dL Est Cr Clr Drug Dosing 63.77 mL/min Estimated GFR (MDRD) > 60 mL/min Glucose 139 H (74-106) mg/dL POC Glucose 138 H (65-110) mg/dl Calcium 9.2 (8.5-10.1) mg/dL Total Bilirubin 0.2 (0.2-1.0) mg/dL AST 18 (15-37) U/L ALT 30 (12-78) U/L Alkaline Phosphatase 64 (46-116) IU/L C-Reactive Protein 5.4 H (<=0.9) mg/dL Total Protein 5.6 L (6.4-8.2) g/dL Albumin 2.2 L (3.4-5.0) g/dL Mruali Results Last 24 Hours: Microbiology 12/26/18 11:51 Aerobic Blood Culture - Preliminary Blood - Venous - Lab Draw NO GROWTH AFTER 3 DAYS Anaerobic Blood Culture - Preliminary NO GROWTH AFTER 3 DAYS 12/26/18 11:40 Aerobic Blood Culture - Preliminary Blood - Venous NO GROWTH AFTER 3 DAYS Anaerobic Blood Culture - Preliminary NO GROWTH AFTER 3 DAYS Med Orders - Current: Current Medications Acetaminophen (Tylenol) 650 mg PO Q4H PRN PRN Reason: Pain Last Admin: 12/27/18 14:35 Dose: 650 mg Albuterol/Ipratropium (Duoneb 3.0-0.5 Mg/3 Ml) 3 ml NEB QID [facility] Last Admin: 12/30/18 08:39 Dose: 3 ml Allopurinol (Zyloprim) 300 mg PO QAM [facility] Last Admin: 12/30/18 08:41 Dose: 300 mg Arformoterol Tartrate (Brovana) 15 mcg INH Q12HR [facility] Last Admin: 12/30/18 08:39 Dose: 15 mcg Artificial Tears (Liquitears 1.4% Ophth Soln) 1 ml EYEBOTH TID@0800,1200,2000 [facility] Last Admin: 12/30/18 08:46 Dose: 1 drop Carvedilol (Coreg) 12.5 mg PO Q12HR [facility] Last Admin: 12/30/18 08:43 Dose: 12.5 mg Ceftazidime (Fortaz) 1 gm IVPUSH Q8H [facility] Last Admin: 12/30/18 06:24 Dose: 1 gm Docusate Sodium (Colace) 100 mg PO BID [facility] Last Admin: 12/30/18 08:44 Dose: 100 mg Enoxaparin Sodium (Lovenox) 30 mg SUBCUT DAILY [facility] Last Admin: 12/30/18 08:44 Dose: 30 mg Furosemide (Lasix) 40 mg IVPUSH BIDDIURETIC [facility] Last Admin: 12/30/18 08:40 Dose: 40 mg Gabapentin (Neurontin) 300 mg PO TID [facility] Last Admin: 12/30/18 08:42 Dose: 300 mg Hydrocortisone (Proctozone-Hc 2.5% Crm) 1 gm TOP BID@0800,2000 [facility] Last Admin: 12/30/18 08:40 Dose: 1 applic Insulin Glargine (Lantus) 20 unit SUBCUT BEDTIME [facility] Last Admin: 12/29/18 19:23 Dose: 20 unit Insulin Human Lispro (Humalog) 8 unit SUBCUT TID@0800,1200,1800 [facility] Last Admin: 12/30/18 08:47 Dose: 8 units Insulin Human NPH (Humulin N) 30 unit SQ DAILY [facility] Last Admin: 12/30/18 08:48 Dose: 30 unit Isosorbide Mononitrate (Imdur) 60 mg PO DAILY [facility] Last Admin: 12/30/18 08:43 Dose: 60 mg Levofloxacin (Levaquin) 500 mg PO DAILY@1200 [facility] Magnesium Oxide (Magnesium Oxide) 400 mg PO BID [facility] Last Admin: 12/30/18 08:42 Dose: 400 mg Methylprednisolone Sodium Succinate (Solu-Medrol) 40 mg IVPUSH DAILY [facility] Last Admin: 12/30/18 08:40 Dose: 40 mg Metronidazole (Flagyl) 500 mg PO TID@0800,1400,2000 [facility] Last Admin: 12/30/18 08:42 Dose: 500 mg Omeprazole (Omeprazole) 20 mg PO BID [facility] Last Admin: 12/30/18 08:44 Dose: 20 mg Potassium Chloride (Potassium Chloride Solution) 20 meq PO DAILY [facility] Last Admin: 12/30/18 08:40 Dose: 20 meq Sodium Chloride (Saline Flush) 10 ml FLUSH ASDIRECTED PRN PRN Reason: Keep Vein Open Last Admin: 12/29/18 22:18 Dose: 10 ml Sodium Chloride (Saline Flush) 10 ml FLUSH Q12HR [facility] Last Admin: 12/30/18 08:39 Dose: 10 ml Tamsulosin HCl (Flomax) 0.4 mg PO DAILY [facility] Last Admin: 12/30/18 08:43 Dose: 0.4 mg Discontinued Medications Arformoterol Tartrate (Brovana) 15 mcg INH BID [facility] Budesonide (Pulmicort) 0.5 mg INH BID [facility] Budesonide (Pulmicort) 0.5 mg INH Q12HR [facility] Last Admin: 12/27/18 19:27 Dose: 0.5 mg Carvedilol (Coreg) 12.5 mg PO BID [facility] Cholecalciferol (Vitamin D3) 1,000 units PO DAILY [facility] Last Admin: 12/27/18 09:23 Dose: 1,000 units Cyanocobalamin (Vitamin B12) 1,000 mcg PO DAILY [facility] Last Admin: 12/27/18 09:21 Dose: 1,000 mcg Furosemide (Lasix) 40 mg PO BID [facility] Last Admin: 12/27/18 17:08 Dose: 40 mg Furosemide (Lasix) 40 mg PO BIDDIURETIC [facility] Last Admin: 12/29/18 11:27 Dose: 40 mg Hydrocortisone (Proctozone-Hc 2.5% Crm) 1 gm TOP BID [facility] Last Admin: 12/28/18 07:41 Dose: 1 applic Levofloxacin/Dextrose 500 mg/ (Premix) 100 mls @ 100 mls/hr IV Q24H [facility] Last Admin: 12/29/18 13:02 Dose: 100 mls/hr Metronidazole 500 mg/ Premix 100 mls @ 100 mls/hr IV Q8H [facility] Last Admin: 12/29/18 14:12 Dose: 100 mls/hr Multivitamins/Minerals/Vitamin C (Tab-A-Prisca) 1 tab PO DAILY [facility] Last Admin: 12/27/18 09:26 Dose: 1 tab Ferrous Fumarate/Vitamin C (Vitron-C) Tabs Own Med 1 tab PO BID [facility] Last Admin: 12/27/18 17:10 Dose: 1 tab - Exam Quality Assessment: Supplemental Oxygen, DVT Prophylaxis General: Alert, Oriented, Cooperative, No Acute Distress HEENT: Pupils Equal, Pupils Reactive Neck: Supple, Trachea Midline, No JVD Lungs: Normal Respiratory Effort, Decreased Breath Sounds Cardiovascular: Regular Rate, Regular Rhythm, Murmurs GI/Abdominal Exam: Normal Bowel Sounds, Soft, Non-Tender, No Organomegaly Extremities: Pedal Edema Peripheral Pulses: 1+: Dorsalis Pedis (L), Dorsalis Pedis (R) Skin: Warm, Dry, Intact Neurological: No New Focal Deficit Psy/Mental Status: Alert, Normal Affect, Normal Mood - Problem List & Annotations (1) Pneumonia SNOMED Code(s): 759340512 Code(s): J18.9 - PNEUMONIA, UNSPECIFIED ORGANISM Status: Acute Priority: High Current Visit: Yes Qualifiers: Pneumonia type: due to unspecified organism Laterality: bilateral Lung location: lower lobe of lung Qualified Code(s): J18.1 - Lobar pneumonia, unspecified organism (2) Anemia SNOMED Code(s): 064259909 Code(s): D64.9 - ANEMIA, UNSPECIFIED Status: Chronic Priority: High Current Visit: No Qualifiers: Anemia type: other cause (3) COPD (chronic obstructive pulmonary disease) SNOMED Code(s): 25184914 Code(s): J44.9 - CHRONIC OBSTRUCTIVE PULMONARY DISEASE, UNSPECIFIED Status : Chronic Priority: High Current Visit: Yes Qualifiers: COPD type: COPD with acute lower respiratory infection Qualified Code(s): J44.0 - Chronic obstructive pulmonary disease with acute lower respiratory infection - Problem List Review Problem List Initiated/Reviewed/Updated: Yes - My Orders Last 24 Hours: My Active Orders 12/31/18 05:11 BASIC METABOLIC PANEL,BMP [CHEM] DAILY C-REACTIVE PROTEIN [CHEM] DAILY CBC WITH AUTO DIFF [HEME] DAILY 01/01/19 05:11 BASIC METABOLIC PANEL,BMP [CHEM] DAILY C-REACTIVE PROTEIN [CHEM] DAILY CBC WITH AUTO DIFF [HEME] DAILY SEDIMENTATION RATE AUTO [HEME] Routine - Plan Plan:: 12/26/2018 patient is admitted to the services of Dr Montano for inpatient treatment of pneumonia and COPD exacerbation. Patient requires inpatient services due to immunocompromised state, WBC at 23,000 with sudden onset. Started on IV antibiotics. Blood cultures collected. patient is full code, wanted to stay in [place] for now unless his condition changes. Will recheck labs in the morning. Astrid Damon CNP 12/27/18 Dusty Seaman MD Continues coughing. Continue IV antibiotics and nebulizers. Add NPH insulin to treat cortisone induced hyperglycemia. 12/28/18 Dusty Seaman MD Still coughing. Continue IV antibiotics. Blood sugars improved. 12/29/18 Dusty Seaman MD Still coughing but feeling better. Continue medical therapy. 12/30/2018 Labs reviewed with the patient. Patient's WBC and CRP improving. Patient has been seen by speech therapist. Patient will continue to need inpatient stay due to immunocompromised state and severity of his illness. The patient has had recurrent hospitalizations. Discussed with patient causes for his acute illnesses, discussed referral to specialist. He is wanting to pursue this. Will have nursing call to set up appointment Astrid Damon CNP
[2018-12-30] MEDS: Sodium Chloride 0.9% 10 ML Syringe FLUSH PRN ×2 (11:46→14:20)
[2018-12-30] MEDS: Levofloxacin 500 MG Tab PO SCH (11:48)
[2018-12-30] MEDS: Insulin Glarg,Human.Rec.Analog 100 UNIT/ML ML SUBCUT SCH (19:14)
[2018-12-31] MEDS: cefTAZidime 1 GM Vial IVPUSH SCH ×3 (05:40→21:59)
[2018-12-31 07:36] LABS: CHLORIDE,CL 97 mmol/L (98-107); SODIUM,NA 138 mmol/L (136-145)
[2018-12-31] MEDS: Albuterol/Ipratropium 3.0-0.5 MG/3 ML Neb Soln NEB SCH ×4 (07:51→19:00)
[2018-12-31] MEDS: Arformoterol 15 MCG/2 ML Neb Soln INH SCH ×2 (07:51→19:00)
[2018-12-31] MEDS: Omeprazole 20 MG Cap.CR PO SCH ×2 (07:52→17:27)
[2018-12-31] MEDS: Allopurinol 100 MG Tab PO SCH (07:52)
[2018-12-31] MEDS: Isosorbide Mononitrate 60 MG Tab.ER PO SCH (07:52)
[2018-12-31] MEDS: Magnesium Oxide 400 MG Tab PO SCH ×2 (07:52→17:27)
[2018-12-31] MEDS: Furosemide 40 MG/4 ML VIAL IVPUSH SCH ×2 (07:52→12:02)
[2018-12-31] MEDS: Potassium Chloride 10% 20 MEQ/15 ML Soln 15 ML UD Cup PO SCH (07:52)
[2018-12-31] MEDS: methylPREDNISolone Sodium Succinate 40 MG/1 ML SDV IVPUSH SCH (07:52)
[2018-12-31] MEDS: metroNIDAZOLE 500 MG Tab PO SCH ×3 (07:52→19:01)
[2018-12-31] MEDS: Carvedilol 12.5 MG Tab PO SCH ×2 (07:52→19:16)
[2018-12-31] MEDS: Docusate Sodium 100 MG Cap PO SCH ×2 (07:52→17:27)
[2018-12-31] MEDS: Tamsulosin 0.4 MG Cap.ER PO SCH (07:52)
[2018-12-31] MEDS: Gabapentin 300 MG Cap PO SCH ×3 (07:53→17:27)
[2018-12-31] MEDS: Hydrocortisone 2.5% Crm 30 GM Tube TOP SCH ×2 (07:53→19:02)
[2018-12-31] MEDS: Polyvinyl Alcohol 1.4% Ophth Soln 15 ML Bottle EYEBOTH SCH ×3 (07:53→19:02)
[2018-12-31] MEDS: Enoxaparin 30 MG/0.3 ML Syringe SUBCUT SCH (07:53)
[2018-12-31] MEDS: Insulin Lispro 100 Units/ML 3 ML Vial SUBCUT SCH ×3 (07:54→17:27)
[2018-12-31] MEDS: Sodium Chloride 0.9% 10 ML Syringe FLUSH SCH ×2 (07:54→19:16)
[2018-12-31] MEDS: Insulin Isophane NPH, Human 100 Units/ML 3 ML Vial SQ SCH (07:55)
--- NOTE | 2018-12-31 08:04 | PCM.PN ---
- General Info Date of Service: 12/31/18 Admission Dx/Problem (Free Text): Admission Diagnosis/Problem Admission Diagnosis/Problem Pneumonia Subjective Update: Patient is feeling much better, continues with some shortness of breath Functional Status: Reports: Pain Controlled, Tolerating Diet - Review of Systems General: Reports: Weakness HEENT: Reports: No Symptoms Pulmonary: Reports: Shortness of Breath, Cough Cardiovascular: Reports: No Symptoms Gastrointestinal: Reports: No Symptoms Genitourinary: Reports: No Symptoms Musculoskeletal: Reports: No Symptoms Skin: Reports: Bruising Neurological: Reports: No Symptoms Psychiatric: Reports: No Symptoms - Patient Data Vitals - Most Recent: Last Vital Signs Temp 98.2 F 12/31/18 07:25 Pulse 73 12/31/18 07:52 Resp 20 12/31/18 07:25 BP 148/71 H 12/31/18 07:52 Pulse Ox 97 12/31/18 07:25 Weight - Most Recent: 274 lb 14.4 oz I&O - Last 24 Hours: Intake & Output 12/30/18 12/31/18 12/31/18 22:59 06:59 14:59 Intake Total 1250 Output Total 2150 660 Balance -900 -660 Lab Results Last 24 Hours: Laboratory Results - last 24 hr 12/30/18 12/30/18 12/30/18 Range/Units 06:52 11:30 16:54 WBC (4.0-10.2) K/uL RBC (4.33-5.41) M/uL Hgb (13.1-16.8) g/dL Hct (39.0-49.0) % MCV (84.0-98.0) fL MCH (28.2-33.3) pg MCHC (31.7-36.0) g/dL RDW (11.2-14.1) % Plt Count (150-350) K/uL Neut % (Auto) (45.0-80.0) % Lymph % (Auto) (10.0-50.0) % [place] % (Auto) (2.0-14.0) % Eos % (Auto) (0.0-5.0) % Baso % (Auto) (0.0-2.0) % Neut # (Auto) (1.40-7.00) K/uL Lymph # (Auto) (0.50-3.50) K/uL [place] # (Auto) (0.00-1.00) K/uL Eos # (Auto) (0.00-0.50) K/uL Baso # (Auto) (0.00-0.20) K/uL Sodium 138 (136-145) mmol/L Potassium 3.9 (3.5-5.1) mmol/L Chloride 100 (98-107) mmol/L Carbon Dioxide 29.8 (21.0-32.0) mmol/L BUN 36 H (7-18) mg/dL Creatinine 0.98 (0.51-1.17) mg/dL Est Cr Clr Drug Dosing 63.77 mL/min Estimated GFR (MDRD) > 60 mL/min Glucose 139 H (74-106) mg/dL POC Glucose 150 H 291 H* (65-110) mg/dl Calcium 9.2 (8.5-10.1) mg/dL Total Bilirubin 0.2 (0.2-1.0) mg/dL AST 18 (15-37) U/L ALT 30 (12-78) U/L Alkaline Phosphatase 64 (46-116) IU/L C-Reactive Protein 5.4 H (<=0.9) mg/dL Total Protein 5.6 L (6.4-8.2) g/dL Albumin 2.2 L (3.4-5.0) g/dL 12/31/18 12/31/18 12/31/18 Range/Units 06:56 06:56 06:58 WBC 12.6 H (4.0-10.2) K/uL RBC 2.85 L (4.33-5.41) M/uL Hgb 9.7 L (13.1-16.8) g/dL Hct 29.8 L (39.0-49.0) % MCV 104.6 H (84.0-98.0) fL MCH 34.0 H (28.2-33.3) pg MCHC 32.6 (31.7-36.0) g/dL RDW 18.8 H (11.2-14.1) % Plt Count 198 (150-350) K/uL Neut % (Auto) 66.8 (45.0-80.0) % Lymph % (Auto) 20.4 (10.0-50.0) % [place] % (Auto) 12.2 (2.0-14.0) % Eos % (Auto) 0.4 (0.0-5.0) % Baso % (Auto) 0.2 (0.0-2.0) % Neut # (Auto) 8.42 H (1.40-7.00) K/uL Lymph # (Auto) 2.58 (0.50-3.50) K/uL [place] # (Auto) 1.54 H (0.00-1.00) K/uL Eos # (Auto) 0.05 (0.00-0.50) K/uL Baso # (Auto) 0.03 (0.00-0.20) K/uL Sodium 138 (136-145) mmol/L Potassium 3.8 (3.5-5.1) mmol/L Chloride 97 L (98-107) mmol/L Carbon Dioxide 31.4 (21.0-32.0) mmol/L BUN 37 H (7-18) mg/dL Creatinine 1.04 (0.51-1.17) mg/dL Est Cr Clr Drug Dosing 60.09 mL/min Estimated GFR (MDRD) > 60 mL/min Glucose 112 H (74-106) mg/dL POC Glucose 132 H (65-110) mg/dl Calcium 9.3 (8.5-10.1) mg/dL Total Bilirubin (0.2-1.0) mg/dL AST (15-37) U/L ALT (12-78) U/L Alkaline Phosphatase (46-116) IU/L C-Reactive Protein 3.6 H (<=0.9) mg/dL Total Protein (6.4-8.2) g/dL Albumin (3.4-5.0) g/dL [facility] Results Last 24 Hours: Microbiology 12/26/18 11:51 Aerobic Blood Culture - Preliminary Blood - Venous - Lab Draw NO GROWTH AFTER 4 DAYS Anaerobic Blood Culture - Preliminary NO GROWTH AFTER 4 DAYS 12/26/18 11:40 Aerobic Blood Culture - Preliminary Blood - Venous NO GROWTH AFTER 4 DAYS Anaerobic Blood Culture - Preliminary NO GROWTH AFTER 4 DAYS Med Orders - Current: Current Medications Acetaminophen (Tylenol) 650 mg PO Q4H PRN PRN Reason: Pain Last Admin: 12/27/18 14:35 Dose: 650 mg Albuterol/Ipratropium (Duoneb 3.0-0.5 Mg/3 Ml) 3 ml NEB QID [facility] Last Admin: 12/31/18 07:51 Dose: 3 ml Allopurinol (Zyloprim) 300 mg PO QAM [facility] Last Admin: 12/31/18 07:52 Dose: 300 mg Arformoterol Tartrate (Brovana) 15 mcg INH Q12HR [facility] Last Admin: 12/31/18 07:51 Dose: 15 mcg Artificial Tears (Liquitears 1.4% Ophth Soln) 1 ml EYEBOTH TID@0800,1200,2000 [facility] Last Admin: 12/31/18 07:53 Dose: 1 drop Carvedilol (Coreg) 12.5 mg PO Q12HR [facility] Last Admin: 12/31/18 07:52 Dose: 12.5 mg Ceftazidime (Fortaz) 1 gm IVPUSH Q8H [facility] Last Admin: 12/31/18 05:40 Dose: 1 gm Docusate Sodium (Colace) 100 mg PO BID [facility] Last Admin: 12/31/18 07:52 Dose: 100 mg Enoxaparin Sodium (Lovenox) 30 mg SUBCUT DAILY [facility] Last Admin: 12/31/18 07:53 Dose: 30 mg Furosemide (Lasix) 40 mg IVPUSH BIDDIURETIC [facility] Last Admin: 12/31/18 07:52 Dose: 40 mg Gabapentin (Neurontin) 300 mg PO TID [facility] Last Admin: 12/31/18 07:53 Dose: 300 mg Hydrocortisone (Proctozone-Hc 2.5% Crm) 1 gm TOP BID@799,1999 [facility] Last Admin: 12/31/18 07:53 Dose: 1 applic Insulin Glargine (Lantus) 20 unit SUBCUT BEDTIME [facility] Last Admin: 12/30/18 19:14 Dose: 20 unit Insulin Human Lispro (Humalog) 8 unit SUBCUT TID@0800,1200,1800 [facility] Last Admin: 12/31/18 07:54 Dose: 8 units Insulin Human NPH (Humulin N) 30 unit SQ DAILY [facility] Last Admin: 12/31/18 07:55 Dose: 30 unit Isosorbide Mononitrate (Imdur) 60 mg PO DAILY [facility] Last Admin: 12/31/18 07:52 Dose: 60 mg Levofloxacin (Levaquin) 500 mg PO DAILY@1200 [facility] Last Admin: 12/30/18 11:48 Dose: 500 mg Magnesium Oxide (Magnesium Oxide) 400 mg PO BID [facility] Last Admin: 12/31/18 07:52 Dose: 400 mg Methylprednisolone Sodium Succinate (Solu-Medrol) 40 mg IVPUSH DAILY [facility] Last Admin: 12/31/18 07:52 Dose: 40 mg Metronidazole (Flagyl) 500 mg PO TID@0800,1400,2000 [facility] Last Admin: 12/31/18 07:52 Dose: 500 mg Omeprazole (Omeprazole) 20 mg PO BID [facility] Last Admin: 12/31/18 07:52 Dose: 20 mg Potassium Chloride (Potassium Chloride Solution) 20 meq PO DAILY [facility] Last Admin: 12/31/18 07:52 Dose: 20 meq Sodium Chloride (Saline Flush) 10 ml FLUSH ASDIRECTED PRN PRN Reason: Keep Vein Open Last Admin: 12/30/18 14:20 Dose: 10 ml Sodium Chloride (Saline Flush) 10 ml FLUSH Q12HR [facility] Last Admin: 12/31/18 07:54 Dose: 10 ml Tamsulosin HCl (Flomax) 0.4 mg PO DAILY [facility] Last Admin: 12/31/18 07:52 Dose: 0.4 mg Discontinued Medications Arformoterol Tartrate (Brovana) 15 mcg INH BID [facility] Budesonide (Pulmicort) 0.5 mg INH BID [facility] Budesonide (Pulmicort) 0.5 mg INH Q12HR [facility] Last Admin: 12/27/18 19:27 Dose: 0.5 mg Carvedilol (Coreg) 12.5 mg PO BID [facility] Cholecalciferol (Vitamin D3) 1,000 units PO DAILY [facility] Last Admin: 12/27/18 09:23 Dose: 1,000 units Cyanocobalamin (Vitamin B12) 1,000 mcg PO DAILY [facility] Last Admin: 12/27/18 09:21 Dose: 1,000 mcg Furosemide (Lasix) 40 mg PO BID [facility] Last Admin: 12/27/18 17:08 Dose: 40 mg Furosemide (Lasix) 40 mg PO BIDDIURETIC [facility] Last Admin: 12/29/18 11:27 Dose: 40 mg Hydrocortisone (Proctozone-Hc 2.5% Crm) 1 gm TOP BID [facility] Last Admin: 12/28/18 07:41 Dose: 1 applic Levofloxacin/Dextrose 500 mg/ (Premix) 100 mls @ 100 mls/hr IV Q24H [facility] Last Admin: 12/29/18 13:02 Dose: 100 mls/hr Metronidazole 500 mg/ Premix 100 mls @ 100 mls/hr IV Q8H [facility] Last Admin: 12/29/18 14:12 Dose: 100 mls/hr Multivitamins/Minerals/Vitamin C (Tab-A-Prisca) 1 tab PO DAILY [facility] Last Admin: 12/27/18 09:26 Dose: 1 tab Ferrous Fumarate/Vitamin C (Vitron-C) Tabs Own Med 1 tab PO BID [facility] Last Admin: 12/27/18 17:10 Dose: 1 tab - Exam Quality Assessment: Supplemental Oxygen General: Alert, Oriented, Cooperative, No Acute Distress HEENT: Pupils Reactive, EOMI, Mucous Membr. Moist/[place] Neck: Supple Lungs: Normal Respiratory Effort, Decreased Breath Sounds Cardiovascular: Regular Rate, Regular Rhythm, Murmurs GI/Abdominal Exam: Normal Bowel Sounds, Soft, Non-Tender, No Organomegaly, No Distention Back Exam: Normal Inspection Extremities: Pedal Edema Peripheral Pulses: 1+: Dorsalis Pedis (L), Dorsalis Pedis (R) Skin: Warm, Dry, Intact Neurological: No New Focal Deficit Psy/Mental Status: Alert, Normal Affect, Normal Mood - Problem List & Annotations (1) Pneumonia SNOMED Code(s): 621006425 Code(s): J18.9 - PNEUMONIA, UNSPECIFIED ORGANISM Status: Acute Priority: High Current Visit: Yes Qualifiers: Pneumonia type: due to unspecified organism Laterality: bilateral Lung location: lower lobe of lung Qualified Code(s): J18.1 - Lobar pneumonia, unspecified organism (2) Anemia SNOMED Code(s): 131228009 Code(s): D64.9 - ANEMIA, UNSPECIFIED Status: Chronic Priority: High Current Visit: No Qualifiers: Anemia type: other cause (3) COPD (chronic obstructive pulmonary disease) SNOMED Code(s): 25561193 Code(s): J44.9 - CHRONIC OBSTRUCTIVE PULMONARY DISEASE, UNSPECIFIED Status : Chronic Priority: High Current Visit: Yes Qualifiers: COPD type: COPD with acute lower respiratory infection Qualified Code(s): J44.0 - Chronic obstructive pulmonary disease with acute lower respiratory infection - Problem List Review Problem List Initiated/Reviewed/Updated: Yes - My Orders Last 24 Hours: My Active Orders 12/30/18 09:00 Communication Order [RC] ROUTINE 01/01/19 05:11 BASIC METABOLIC PANEL,BMP [CHEM] DAILY C-REACTIVE PROTEIN [CHEM] DAILY CBC WITH AUTO DIFF [HEME] DAILY SEDIMENTATION RATE AUTO [HEME] Routine - Plan Plan:: 12/26/2018 patient is admitted to the services of Dr Montano for inpatient treatment of pneumonia and COPD exacerbation. Patient requires inpatient services due to immunocompromised state, WBC at 23,000 with sudden onset. Started on IV antibiotics. Blood cultures collected. patient is full code, wanted to stay in [place] for now unless his condition changes. Will recheck labs in the morning. Astrid Damon CNP 12/27/18 Dusty Seaman MD Continues coughing. Continue IV antibiotics and nebulizers. Add NPH insulin to treat cortisone induced hyperglycemia. 12/28/18 Dusty Seaman MD Still coughing. Continue IV antibiotics. Blood sugars improved. 12/29/18 Dusty Seaman MD Still coughing but feeling better. Continue medical therapy. 12/30/2018 Labs reviewed with the patient. Patient's WBC and CRP improving. Patient has been seen by speech therapist. Patient will continue to need inpatient stay due to immunocompromised state and severity of his illness. The patient has had recurrent hospitalizations. Discussed with patient causes for his acute illnesses, discussed referral to specialist. He is wanting to pursue this. Will have nursing call to set up appointment Astrid Damon CNP 12/31/2018 Patient feels pretty good, continues with a cough. Labs reviewed and discussed with the patient. WBC and CRP trended downward. Will continue on antibiotics and referral to chemist pharmaceutical. PLan to discharge back to [place] tomorrow. Astrid Damon CNP
[2018-12-31] MEDS: Levofloxacin 500 MG Tab PO SCH (12:01)
[2018-12-31] MEDS: Sodium Chloride 0.9% 10 ML Syringe FLUSH PRN ×3 (12:03→21:59)
[2018-12-31] MEDS: Acetaminophen 325 MG Tab PO PRN (19:00)
[2018-12-31] MEDS: Insulin Glarg,Human.Rec.Analog 100 UNIT/ML ML SUBCUT SCH (19:01)
[2019-01-01] MEDS: cefTAZidime 1 GM Vial IVPUSH SCH ×2 (05:25→13:14)
[2019-01-01] MEDS: Sodium Chloride 0.9% 10 ML Syringe FLUSH PRN ×2 (05:25→12:14)
[2019-01-01 07:18] LABS: CHLORIDE,CL 97 mmol/L (98-107); SODIUM,NA 137 mmol/L (136-145)
[2019-01-01] MEDS: Arformoterol 15 MCG/2 ML Neb Soln INH SCH (08:40)
[2019-01-01] MEDS: Furosemide 40 MG/4 ML VIAL IVPUSH SCH ×2 (08:42→12:13)
[2019-01-01] MEDS: Potassium Chloride 10% 20 MEQ/15 ML Soln 15 ML UD Cup PO SCH (08:42)
[2019-01-01] MEDS: Sodium Chloride 0.9% 10 ML Syringe FLUSH SCH (08:44)
[2019-01-01] MEDS: methylPREDNISolone Sodium Succinate 40 MG/1 ML SDV IVPUSH SCH (08:45)
[2019-01-01] MEDS: Enoxaparin 30 MG/0.3 ML Syringe SUBCUT SCH (08:46)
[2019-01-01] MEDS: Albuterol/Ipratropium 3.0-0.5 MG/3 ML Neb Soln NEB SCH ×2 (08:46→12:13)
[2019-01-01] MEDS: Tamsulosin 0.4 MG Cap.ER PO SCH (08:46)
[2019-01-01] MEDS: Carvedilol 12.5 MG Tab PO SCH (08:47)
[2019-01-01] MEDS: Docusate Sodium 100 MG Cap PO SCH (08:48)
[2019-01-01] MEDS: Magnesium Oxide 400 MG Tab PO SCH (08:48)
[2019-01-01] MEDS: Gabapentin 300 MG Cap PO SCH ×2 (08:48→12:13)
[2019-01-01] MEDS: metroNIDAZOLE 500 MG Tab PO SCH ×2 (08:49→13:14)
[2019-01-01] MEDS: Allopurinol 100 MG Tab PO SCH (08:49)
[2019-01-01] MEDS: Isosorbide Mononitrate 60 MG Tab.ER PO SCH (08:50)
[2019-01-01] MEDS: Polyvinyl Alcohol 1.4% Ophth Soln 15 ML Bottle EYEBOTH SCH ×2 (08:50→12:22)
[2019-01-01] MEDS: Omeprazole 20 MG Cap.CR PO SCH (08:50)
[2019-01-01] MEDS: Insulin Lispro 100 Units/ML 3 ML Vial SUBCUT SCH ×2 (08:52→12:19)
[2019-01-01] MEDS: Insulin Isophane NPH, Human 100 Units/ML 3 ML Vial SQ SCH (08:55)
[2019-01-01] MEDS: Hydrocortisone 2.5% Crm 30 GM Tube TOP SCH (10:53)
[2019-01-01] MEDS: Levofloxacin 500 MG Tab PO SCH (12:13)
[2019-01-01 12:55] VITALS: BP 111/56
--- NOTE | 2019-01-01 15:11 | PCM.PN ---
- General Info Date of Service: 01/01/19 Admission Dx/Problem (Free Text): Admission Diagnosis/Problem Admission Diagnosis/Problem Pneumonia Subjective Update: Patient is feeling much better, continues with some shortness of breath Functional Status: Reports: Pain Controlled - Review of Systems General: Reports: No Symptoms HEENT: Reports: No Symptoms Pulmonary: Reports: No Symptoms Cardiovascular: Reports: No Symptoms Gastrointestinal: Reports: No Symptoms Genitourinary: Reports: No Symptoms Musculoskeletal: Reports: No Symptoms Skin: Reports: No Symptoms Neurological: Reports: No Symptoms Psychiatric: Reports: No Symptoms - Patient Data Vitals - Most Recent: Last Vital Signs Temp 96.5 F 01/01/19 12:00 Pulse 83 01/01/19 12:00 Resp 16 01/01/19 12:00 BP 111/56 L 01/01/19 12:00 Pulse Ox 99 01/01/19 12:00 Weight - Most Recent: 270 lb 3.2 oz I&O - Last 24 Hours: Intake & Output 01/01/19 01/01/19 01/01/19 06:59 14:59 22:59 Intake Total 1930 Output Total 750 1600 Balance -750 330 Lab Results Last 24 Hours: Laboratory Results - last 24 hr 12/31/18 01/01/19 01/01/19 Range/Units 16:45 06:25 06:25 WBC 13.0 H (4.0-10.2) K/uL RBC 2.83 L (4.33-5.41) M/uL Hgb 9.6 L (13.1-16.8) g/dL Hct 29.6 L (39.0-49.0) % MCV 104.6 H (84.0-98.0) fL MCH 33.9 H (28.2-33.3) pg MCHC 32.4 (31.7-36.0) g/dL RDW 18.7 H (11.2-14.1) % Plt Count 210 (150-350) K/uL Neut % (Auto) 67.4 (45.0-80.0) % Lymph % (Auto) 20.4 (10.0-50.0) % [place] % (Auto) 11.8 (2.0-14.0) % Eos % (Auto) 0.2 (0.0-5.0) % Baso % (Auto) 0.2 (0.0-2.0) % Neut # (Auto) 8.73 H (1.40-7.00) K/uL Lymph # (Auto) 2.64 (0.50-3.50) K/uL [place] # (Auto) 1.53 H (0.00-1.00) K/uL Eos # (Auto) 0.03 (0.00-0.50) K/uL Baso # (Auto) 0.02 (0.00-0.20) K/uL ESR 98 H (0-20) mm/hr Sodium 137 (136-145) mmol/L Potassium 3.9 (3.5-5.1) mmol/L Chloride 97 L (98-107) mmol/L Carbon Dioxide 32.4 H (21.0-32.0) mmol/L BUN 41 H (7-18) mg/dL Creatinine 1.10 (0.51-1.17) mg/dL Est Cr Clr Drug Dosing 56.81 mL/min Estimated GFR (MDRD) > 60 mL/min Glucose 134 H (74-106) mg/dL POC Glucose 375 H* (65-110) mg/dl Calcium 9.2 (8.5-10.1) mg/dL C-Reactive Protein 2.6 H (<=0.9) mg/dL 01/01/19 Range/Units 07:23 WBC (4.0-10.2) K/uL RBC (4.33-5.41) M/uL Hgb (13.1-16.8) g/dL Hct (39.0-49.0) % MCV (84.0-98.0) fL MCH (28.2-33.3) pg MCHC (31.7-36.0) g/dL RDW (11.2-14.1) % Plt Count (150-350) K/uL Neut % (Auto) (45.0-80.0) % Lymph % (Auto) (10.0-50.0) % [place] % (Auto) (2.0-14.0) % Eos % (Auto) (0.0-5.0) % Baso % (Auto) (0.0-2.0) % Neut # (Auto) (1.40-7.00) K/uL Lymph # (Auto) (0.50-3.50) K/uL [place] # (Auto) (0.00-1.00) K/uL Eos # (Auto) (0.00-0.50) K/uL Baso # (Auto) (0.00-0.20) K/uL ESR (0-20) mm/hr Sodium (136-145) mmol/L Potassium (3.5-5.1) mmol/L Chloride (98-107) mmol/L Carbon Dioxide (21.0-32.0) mmol/L BUN (7-18) mg/dL Creatinine (0.51-1.17) mg/dL Est Cr Clr Drug Dosing mL/min Estimated GFR (MDRD) mL/min Glucose (74-106) mg/dL POC Glucose 128 H (65-110) mg/dl Calcium (8.5-10.1) mg/dL C-Reactive Protein (<=0.9) mg/dL Murali Results Last 24 Hours: Microbiology 12/26/18 11:51 Aerobic Blood Culture - Final Blood - Venous - Lab Draw NO GROWTH AFTER 5 DAYS Anaerobic Blood Culture - Final NO GROWTH AFTER 5 DAYS 12/26/18 11:40 Aerobic Blood Culture - Final Blood - Venous NO GROWTH AFTER 5 DAYS Anaerobic Blood Culture - Final NO GROWTH AFTER 5 DAYS Med Orders - Current: Current Medications Discontinued Medications Acetaminophen (Tylenol) 650 mg PO Q4H PRN PRN Reason: Pain Last Admin: 12/31/18 19:00 Dose: 650 mg Albuterol/Ipratropium (Duoneb 3.0-0.5 Mg/3 Ml) 3 ml NEB QID [facility] Last Admin: 01/01/19 12:13 Dose: 3 ml Allopurinol (Zyloprim) 300 mg PO QAM [facility] Last Admin: 01/01/19 08:49 Dose: 300 mg Arformoterol Tartrate (Brovana) 15 mcg INH BID [facility] Arformoterol Tartrate (Brovana) 15 mcg INH Q12HR [facility] Last Admin: 01/01/19 08:40 Dose: 15 mcg Artificial Tears (Liquitears 1.4% Ophth Soln) 1 ml EYEBOTH TID@0800,1200,2000 [facility] Last Admin: 01/01/19 12:22 Dose: 1 drop Budesonide (Pulmicort) 0.5 mg INH BID [facility] Budesonide (Pulmicort) 0.5 mg INH Q12HR [facility] Last Admin: 12/27/18 19:27 Dose: 0.5 mg Carvedilol (Coreg) 12.5 mg PO BID [facility] Carvedilol (Coreg) 12.5 mg PO Q12HR [facility] Last Admin: 01/01/19 08:47 Dose: 12.5 mg Ceftazidime (Fortaz) 1 gm IVPUSH Q8H [facility] Last Admin: 01/01/19 13:14 Dose: 1 gm Cholecalciferol (Vitamin D3) 1,000 units PO DAILY [facility] Last Admin: 12/27/18 09:23 Dose: 1,000 units Cyanocobalamin (Vitamin B12) 1,000 mcg PO DAILY [facility] Last Admin: 12/27/18 09:21 Dose: 1,000 mcg Docusate Sodium (Colace) 100 mg PO BID [facility] Last Admin: 01/01/19 08:48 Dose: 100 mg Enoxaparin Sodium (Lovenox) 30 mg SUBCUT DAILY [facility] Last Admin: 01/01/19 08:46 Dose: 30 mg Furosemide (Lasix) 40 mg PO BID [facility] Last Admin: 12/27/18 17:08 Dose: 40 mg Furosemide (Lasix) 40 mg PO BIDDIURETIC [facility] Last Admin: 12/29/18 11:27 Dose: 40 mg Furosemide (Lasix) 40 mg IVPUSH BIDDIURETIC [facility] Last Admin: 01/01/19 12:13 Dose: 40 mg Gabapentin (Neurontin) 300 mg PO TID [facility] Last Admin: 01/01/19 12:13 Dose: 300 mg Hydrocortisone (Proctozone-Hc 2.5% Crm) 1 gm TOP BID [facility] Last Admin: 12/28/18 07:41 Dose: 1 applic Hydrocortisone (Proctozone-Hc 2.5% Crm) 1 gm TOP BID@0800,2000 [facility] Last Admin: 01/01/19 10:53 Dose: 1 applic Levofloxacin/Dextrose 500 mg/ (Premix) 100 mls @ 100 mls/hr IV Q24H [facility] Last Admin: 12/29/18 13:02 Dose: 100 mls/hr Metronidazole 500 mg/ Premix 100 mls @ 100 mls/hr IV Q8H [facility] Last Admin: 12/29/18 14:12 Dose: 100 mls/hr Insulin Glargine (Lantus) 20 unit SUBCUT BEDTIME [facility] Last Admin: 12/31/18 19:01 Dose: 20 unit Insulin Human Lispro (Humalog) 8 unit SUBCUT TID@0800,1200,1800 [facility] Last Admin: 01/01/19 12:19 Dose: 8 units Insulin Human NPH (Humulin N) 30 unit SQ DAILY [facility] Last Admin: 01/01/19 08:55 Dose: 30 unit Isosorbide Mononitrate (Imdur) 60 mg PO DAILY [facility] Last Admin: 01/01/19 08:50 Dose: 60 mg Levofloxacin (Levaquin) 500 mg PO DAILY@1200 [facility] Last Admin: 01/01/19 12:13 Dose: 500 mg Magnesium Oxide (Magnesium Oxide) 400 mg PO BID [facility] Last Admin: 01/01/19 08:48 Dose: 400 mg Methylprednisolone Sodium Succinate (Solu-Medrol) 40 mg IVPUSH DAILY [facility] Last Admin: 01/01/19 08:45 Dose: 40 mg Metronidazole (Flagyl) 500 mg PO TID@0800,1400,2000 [facility] Last Admin: 01/01/19 13:14 Dose: 500 mg Multivitamins/Minerals/Vitamin C (Tab-A-Prisca) 1 tab PO DAILY [facility] Last Admin: 12/27/18 09:26 Dose: 1 tab Ferrous Fumarate/Vitamin C (Vitron-C) Tabs Own Med 1 tab PO BID [facility] Last Admin: 12/27/18 17:10 Dose: 1 tab Omeprazole (Omeprazole) 20 mg PO BID [facility] Last Admin: 01/01/19 08:50 Dose: 20 mg Potassium Chloride (Potassium Chloride Solution) 20 meq PO DAILY [facility] Last Admin: 01/01/19 08:42 Dose: 20 meq Sodium Chloride (Saline Flush) 10 ml FLUSH ASDIRECTED PRN PRN Reason: Keep Vein Open Last Admin: 01/01/19 12:14 Dose: 10 ml Sodium Chloride (Saline Flush) 10 ml FLUSH Q12HR [facility] Last Admin: 01/01/19 08:44 Dose: 10 ml Tamsulosin HCl (Flomax) 0.4 mg PO DAILY [facility] Last Admin: 01/01/19 08:46 Dose: 0.4 mg - Exam Quality Assessment: Supplemental Oxygen, DVT Prophylaxis Lungs: Normal Respiratory Effort, Decreased Breath Sounds, Other (egophony right ) Cardiovascular: Regular Rate, Regular Rhythm GI/Abdominal Exam: Normal Bowel Sounds, Soft, Non-Tender, No Distention (Male) Exam: Deferred Back Exam: Normal Inspection Extremities: Non-Tender, Pedal Edema Skin: Warm, Dry, Intact, Ecchymosis Neurological: No New Focal Deficit Psy/Mental Status: Alert, Normal Affect, Normal Mood - Problem List & Annotations (1) Pneumonia SNOMED Code(s): 722244933 Code(s): J18.9 - PNEUMONIA, UNSPECIFIED ORGANISM Status: Acute Priority: High Qualifiers: Pneumonia type: due to unspecified organism Laterality: bilateral Lung location: lower lobe of lung Qualified Code(s): J18.1 - Lobar pneumonia, unspecified organism (2) COPD (chronic obstructive pulmonary disease) SNOMED Code(s): 82552614 Code(s): J44.9 - CHRONIC OBSTRUCTIVE PULMONARY DISEASE, UNSPECIFIED Status : Chronic Priority: High Qualifiers: COPD type: COPD with acute lower respiratory infection Qualified Code(s): J44.0 - Chronic obstructive pulmonary disease with acute lower respiratory infection (3) Chronic GERD SNOMED Code(s): 616099936, 487086243 Code(s): K21.9 - GASTRO-ESOPHAGEAL REFLUX DISEASE WITHOUT ESOPHAGITIS Status: Chronic Priority: Medium (4) Chronic diastolic (congestive) heart failure SNOMED Code(s): 819256366, 774448298 Code(s): I50.32 - CHRONIC DIASTOLIC (CONGESTIVE) HEART FAILURE Status: Chronic Priority: Medium (5) Chronic kidney disease (CKD) SNOMED Code(s): 042475685 Code(s): N18.9 - CHRONIC KIDNEY DISEASE, UNSPECIFIED Status: Chronic Priority: High Qualifiers: Chronic kidney disease stage: unspecified stage Qualified Code(s): N18.9 - Chronic kidney disease, unspecified (6) Chronic respiratory failure with hypoxia SNOMED Code(s): 365699932 Code(s): J96.11 - CHRONIC RESPIRATORY FAILURE WITH HYPOXIA Status: Chronic Priority: High (7) Coronary artery disease SNOMED Code(s): 85808548 Code(s): I25.10 - ATHSCL HEART DISEASE OF [place] CORONARY ARTERY W/O ANG PCTRS Status: Chronic Priority: Medium Qualifiers: Coronary Disease-Associated Artery/Lesion type: [place] artery [place] vs. transplanted heart: [place] heart Associated angina: without angina Qualified Code(s): I25.10 - Atherosclerotic heart disease of [place] coronary artery without angina pectoris (8) Diabetes mellitus SNOMED Code(s): 55879324 Code(s): E11.9 - TYPE 2 DIABETES MELLITUS WITHOUT COMPLICATIONS Status: Chronic Priority: Medium (9) Dyslipidemia SNOMED Code(s): 599608521 Code(s): E78.5 - HYPERLIPIDEMIA, UNSPECIFIED Status: Chronic Priority: Medium (10) Gout SNOMED Code(s): 90257977 Code(s): M10.9 - GOUT, UNSPECIFIED Status: Chronic Priority: Low Qualifiers: Gout site: unspecified site Gout etiology: due to renal impairment Chronicity: chronic Presence of tophus: without tophus Qualified Code(s): M1A.30X0 - Chronic gout due to renal impairment, unspecified site, without tophus (tophi) (11) HTN, Benign hypertension SNOMED Code(s): 34379908 Code(s): I10 - ESSENTIAL (PRIMARY) HYPERTENSION Status: Chronic Priority : Medium (12) Neuropathy SNOMED Code(s): 797913394 Code(s): G62.9 - POLYNEUROPATHY, UNSPECIFIED Status: Chronic Priority: Medium (13) Obesity (BMI 30-39.9) SNOMED Code(s): 293090899, 265470043 Code(s): E66.9 - OBESITY, UNSPECIFIED Status: Chronic Priority: Medium (14) Obstructive sleep apnea on CPAP SNOMED Code(s): 83814861 Code(s): G47.33 - OBSTRUCTIVE SLEEP APNEA (ADULT) (PEDIATRIC); Z99.89 - DEPENDENCE ON OTHER ENABLING MACHINES AND DEVICES Status: Chronic Priority: Low Annotation/Comment:: (15) Osteoarthritis SNOMED Code(s): 501935343 Code(s): M19.90 - UNSPECIFIED OSTEOARTHRITIS, UNSPECIFIED SITE Status: Chronic Priority: Medium (16) Oxygen dependent SNOMED Code(s): 115226605225 Code(s): Z99.81 - DEPENDENCE ON SUPPLEMENTAL OXYGEN Status: Chronic Priority: High (17) Weakness generalized SNOMED Code(s): 08676785 Code(s): R53.1 - WEAKNESS Status: Chronic Priority: High - Problem List Review Problem List Initiated/Reviewed/Updated: Yes - My Orders Last 24 Hours: My Active Orders 01/01/19 13:35 Discontinue Saline Lock [Peripheral IV Discontinue] [OM.PC] Routine 01/01/19 13:40 Ready for Discharge [RC] PER UNIT ROUTINE - Plan Plan:: 12/26/2018 patient is admitted to the services of Dr Montano for inpatient treatment of pneumonia and COPD exacerbation. Patient requires inpatient services due to immunocompromised state, WBC at 23,000 with sudden onset. Started on IV antibiotics. Blood cultures collected. patient is full code, wanted to stay in [place] for now unless his condition changes. Will recheck labs in the morning. Astrid Damon CNP 12/27/18 Dusty Seaman MD Continues coughing. Continue IV antibiotics and nebulizers. Add NPH insulin to treat cortisone induced hyperglycemia. 12/28/18 Dusty Seaman MD Still coughing. Continue IV antibiotics. Blood sugars improved. 12/29/18 Dusty Seaman MD Still coughing but feeling better. Continue medical therapy. 12/30/2018 Labs reviewed with the patient. Patient's WBC and CRP improving. Patient has been seen by speech therapist. Patient will continue to need inpatient stay due to immunocompromised state and severity of his illness. The patient has had recurrent hospitalizations. Discussed with patient causes for his acute illnesses, discussed referral to specialist. He is wanting to pursue this. Will have nursing call to set up appointment Astrid Damon CNP 12/31/2018 Patient feels pretty good, continues with a cough. Labs reviewed and discussed with the patient. WBC and CRP trended downward. Will continue on antibiotics and referral to colorer. PLan to discharge back to [place] tomorrow. Astrid Damon CNP 01/01/19 Dusty Seaman MD Feels good today. Has required inpatient status due to immunocompromised status , need for prolonged IV antibiotics, need for three types of insulins and monitoring of his diabetic status, and the appropriate antibiotics were not available for outpatient treatment until today. Improved and stable for discharge back to shelter facility on oral antibiotics.
--- NOTE | 2019-01-01 15:12 | PCM.DCSUM1 ---
Discharge Summary - Hospital Course Diagnosis: Stroke: No - Discharge Data Discharge Date: 01/01/19 Discharge Disposition: DC/Tfer to SNF 03 Condition: Fair - Discharge Diagnosis/Problem(s) (1) Pneumonia SNOMED Code(s): 795498189 ICD Code: J18.9 - PNEUMONIA, UNSPECIFIED ORGANISM Status: Acute Priority : High Qualifiers: Pneumonia type: due to unspecified organism Laterality: bilateral Lung location: lower lobe of lung Qualified Code(s): J18.1 - Lobar pneumonia, unspecified organism (2) COPD (chronic obstructive pulmonary disease) SNOMED Code(s): 39878503 ICD Code: J44.9 - CHRONIC OBSTRUCTIVE PULMONARY DISEASE, UNSPECIFIED Status : Chronic Priority: High Qualifiers: COPD type: COPD with acute lower respiratory infection Qualified Code(s): J44.0 - Chronic obstructive pulmonary disease with acute lower respiratory infection (3) Chronic GERD SNOMED Code(s): 689154773, 830978112 ICD Code: K21.9 - GASTRO-ESOPHAGEAL REFLUX DISEASE WITHOUT ESOPHAGITIS Status: Chronic Priority: Medium (4) Chronic diastolic (congestive) heart failure SNOMED Code(s): 719277127, 305593108 ICD Code: I50.32 - CHRONIC DIASTOLIC (CONGESTIVE) HEART FAILURE Status: Chronic Priority: Medium (5) Chronic kidney disease (CKD) SNOMED Code(s): 616639936 ICD Code: N18.9 - CHRONIC KIDNEY DISEASE, UNSPECIFIED Status: Chronic Priority: High Qualifiers: Chronic kidney disease stage: unspecified stage Qualified Code(s): N18.9 - Chronic kidney disease, unspecified (6) Chronic respiratory failure with hypoxia SNOMED Code(s): 531706913 ICD Code: J96.11 - CHRONIC RESPIRATORY FAILURE WITH HYPOXIA Status: Chronic Priority: High (7) Coronary artery disease SNOMED Code(s): 82172096 ICD Code: I25.10 - ATHSCL HEART DISEASE OF [place] CORONARY ARTERY W/O ANG PCTRS Status: Chronic Priority: Medium Qualifiers: Coronary Disease-Associated Artery/Lesion type: [place] artery [place] vs. transplanted heart: [place] heart Associated angina: without angina Qualified Code(s): I25.10 - Atherosclerotic heart disease of [place] coronary artery without angina pectoris (8) Diabetes mellitus SNOMED Code(s): 69289847 ICD Code: E11.9 - TYPE 2 DIABETES MELLITUS WITHOUT COMPLICATIONS Status: Chronic Priority: Medium (9) Dyslipidemia SNOMED Code(s): 228629004 ICD Code: E78.5 - HYPERLIPIDEMIA, UNSPECIFIED Status: Chronic Priority: Medium (10) Gout SNOMED Code(s): 47038053 ICD Code: M10.9 - GOUT, UNSPECIFIED Status: Chronic Priority: Low Qualifiers: Gout site: unspecified site Gout etiology: due to renal impairment Chronicity: chronic Presence of tophus: without tophus Qualified Code(s): M1A.30X0 - Chronic gout due to renal impairment, unspecified site, without tophus (tophi) (11) HTN, Benign hypertension SNOMED Code(s): 10660255 ICD Code: I10 - ESSENTIAL (PRIMARY) HYPERTENSION Status: Chronic Priority : Medium (12) Neuropathy SNOMED Code(s): 569603135 ICD Code: G62.9 - POLYNEUROPATHY, UNSPECIFIED Status: Chronic Priority: Medium (13) Obesity (BMI 30-39.9) SNOMED Code(s): 286412407, 412312620 ICD Code: E66.9 - OBESITY, UNSPECIFIED Status: Chronic Priority: Medium (14) Obstructive sleep apnea on CPAP SNOMED Code(s): 27846873 ICD Code: G47.33 - OBSTRUCTIVE SLEEP APNEA (ADULT) (PEDIATRIC); Z99.89 - DEPENDENCE ON OTHER ENABLING MACHINES AND DEVICES Status: Chronic Priority: Low Problem Details: (15) Osteoarthritis SNOMED Code(s): 819897579 ICD Code: M19.90 - UNSPECIFIED OSTEOARTHRITIS, UNSPECIFIED SITE Status: Chronic Priority: Medium (16) Oxygen dependent SNOMED Code(s): 294417728356 ICD Code: Z99.81 - DEPENDENCE ON SUPPLEMENTAL OXYGEN Status: Chronic Priority: High (17) Weakness generalized SNOMED Code(s): 85373124 ICD Code: R53.1 - WEAKNESS Status: Chronic Priority: High - Patient Summary/Data Consults: Consultations 12/26/18 11:29 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 [CONS] Routine OT Evaluation and Treatment [CONS] Routine PT Evaluation and Treatment [CONS] Routine - Patient Instructions Diet: Diabetic Diet Activity: As Tolerated Driving: Do Not Drive Showering/Bathing: May Shower Other/Special Instructions: Referral to PT-OT to evaluate and treat - Discharge Plan *PRESCRIPTION DRUG MONITORING PROGRAM REVIEWED*: Not Applicable *COPY OF PRESCRIPTION DRUG MONITORING REPORT IN PATIENT SG: Not Applicable Prescriptions/Med Rec: Cefuroxime Axetil [Ceftin] 500 mg PO BID #11 tablet levoFLOXacin [Levaquin] 500 mg PO DAILY@1200 #5 tablet metroNIDAZOLE [Flagyl] 500 mg PO TID@0800,1400,1999 #22 tablet Home Medications: Home Meds Arformoterol [Brovana] 2 ml INH BID 05/04/14 [History] Budesonide [Pulmicort] 2 ml INH BID 05/04/14 [History] Gabapentin [Neurontin] 300 mg PO TID 05/04/14 [History] Multivitamin [Multivitamins] 1 tab PO DAILY 05/04/14 [History] Omeprazole 20 mg PO BID 05/04/14 [History] Isosorbide Mononitrate [Imdur] 60 mg PO DAILY 10/26/16 [History] Allopurinol [Zyloprim] 300 mg PO QAM 06/13/17 [History] Cholecalciferol (Vitamin D3) [Vitamin D3] 1,000 unit PO DAILY 06/13/17 [History] Docusate Sodium [Colace] 100 mg PO BID 12/28/17 [History] Acetaminophen [Tylenol] 650 mg PO Q4H PRN 05/13/18 [History] Albuterol/Ipratropium [DuoNeb 3.0-0.5 MG/3 ML] 3 ml NEB QID 05/13/18 [History] Magnesium Oxide [Magnesium] 400 mg PO BID 05/13/18 [History] Tamsulosin HCl [Flomax] 0.4 mg PO DAILY 06/13/18 [History] Insulin Detemir [Levemir Flextouch] 20 units SUBCUT BEDTIME #1 06/19/18 [Rx] Insulin Aspart [NovoLOG] 8 unit SQ TID@0800,1200,1800 09/03/18 [History] Polyvinyl Alcohol [LiquiTears 1.4% Ophth Soln] 1 ml EYEBOTH TID@0800,1200,2000 09/03/18 [History] Carvedilol [Coreg] 12.5 mg PO BID 12/26/18 [History] Cyanocobalamin (Vitamin B-12) [B-12] 1,000 mcg PO DAILY 12/26/18 [History] Ferrous Fumarate/Vitamin C [Vitron-C] 1 tab PO BID 12/26/18 [History] Furosemide 40 mg PO BID 12/26/18 [History] Hydrocortisone Acetate [Anucort-HC] 25 mg RECTAL Q24H PRN 12/26/18 [History] Hydrocortisone [Hydrocortisone 2.5% Crm] 1 applicful RECTAL BID 12/26/18 [ History] Potassium Chloride [Potassium Chloride Solution] 20 meq PO DAILY 12/26/18 [ History] guaiFENesin/Dextromethorphan [Safetussin DM] 10 ml PO QID 12/26/18 [History] hydrOXYzine pamoate [Hydroxyzine Pamoate] 25 mg PO Q8HR PRN 12/26/18 [History] predniSONE [Prednisone] 20 mg PO DAILY 12/26/18 [History] Cefuroxime Axetil [Ceftin] 500 mg PO BID #11 tablet 01/01/19 [Rx] levoFLOXacin [Levaquin] 500 mg PO DAILY@1200 #5 tablet 01/01/19 [Rx] metroNIDAZOLE [Flagyl] 500 mg PO TID@0800,1400,2000 #22 tablet 01/01/19 [Rx] Oxygen Therapy Mode: Nasal Cannula Oxygen Flow Rate (L/min): 2 Patient Handouts: Levofloxacin injection, Ceftazidime injection, Metronidazole injection - Discharge Summary/Plan Comment DC Time >30 min.: No - Patient Data Vitals - Most Recent: Last Vital Signs Temp 96.5 F 01/01/19 12:00 Pulse 83 01/01/19 12:00 Resp 16 01/01/19 12:00 BP 111/56 L 01/01/19 12:00 Pulse Ox 99 01/01/19 12:00 Weight - Most Recent: 270 lb 3.2 oz I&O - Last 24 hours: Intake & Output 01/01/19 01/01/19 01/01/19 06:59 14:59 22:59 Intake Total 1930 Output Total 750 1600 Balance -750 330 Lab Results - Last 24 hrs: Laboratory Results - last 24 hr 12/31/18 01/01/19 01/01/19 Range/Units 16:45 06:25 06:25 WBC 13.0 H (4.0-10.2) K/uL RBC 2.83 L (4.33-5.41) M/uL Hgb 9.6 L (13.1-16.8) g/dL Hct 29.6 L (39.0-49.0) % MCV 104.6 H (84.0-98.0) fL MCH 33.9 H (28.2-33.3) pg MCHC 32.4 (31.7-36.0) g/dL RDW 18.7 H (11.2-14.1) % Plt Count 210 (150-350) K/uL Neut % (Auto) 67.4 (45.0-80.0) % Lymph % (Auto) 20.4 (10.0-50.0) % [place] % (Auto) 11.8 (2.0-14.0) % Eos % (Auto) 0.2 (0.0-5.0) % Baso % (Auto) 0.2 (0.0-2.0) % Neut # (Auto) 8.73 H (1.40-7.00) K/uL Lymph # (Auto) 2.64 (0.50-3.50) K/uL [place] # (Auto) 1.53 H (0.00-1.00) K/uL Eos # (Auto) 0.03 (0.00-0.50) K/uL Baso # (Auto) 0.02 (0.00-0.20) K/uL ESR 98 H (0-20) mm/hr Sodium 137 (136-145) mmol/L Potassium 3.9 (3.5-5.1) mmol/L Chloride 97 L (98-107) mmol/L Carbon Dioxide 32.4 H (21.0-32.0) mmol/L BUN 41 H (7-18) mg/dL Creatinine 1.10 (0.51-1.17) mg/dL Est Cr Clr Drug Dosing 56.81 mL/min Estimated GFR (MDRD) > 60 mL/min Glucose 134 H (74-106) mg/dL POC Glucose 375 H* (65-110) mg/dl Calcium 9.2 (8.5-10.1) mg/dL C-Reactive Protein 2.6 H (<=0.9) mg/dL 01/01/19 Range/Units 07:23 WBC (4.0-10.2) K/uL RBC (4.33-5.41) M/uL Hgb (13.1-16.8) g/dL Hct (39.0-49.0) % MCV (84.0-98.0) fL MCH (28.2-33.3) pg MCHC (31.7-36.0) g/dL RDW (11.2-14.1) % Plt Count (150-350) K/uL Neut % (Auto) (45.0-80.0) % Lymph % (Auto) (10.0-50.0) % [place] % (Auto) (2.0-14.0) % Eos % (Auto) (0.0-5.0) % Baso % (Auto) (0.0-2.0) % Neut # (Auto) (1.40-7.00) K/uL Lymph # (Auto) (0.50-3.50) K/uL [place] # (Auto) (0.00-1.00) K/uL Eos # (Auto) (0.00-0.50) K/uL Baso # (Auto) (0.00-0.20) K/uL ESR (0-20) mm/hr Sodium (136-145) mmol/L Potassium (3.5-5.1) mmol/L Chloride (98-107) mmol/L Carbon Dioxide (21.0-32.0) mmol/L BUN (7-18) mg/dL Creatinine (0.51-1.17) mg/dL Est Cr Clr Drug Dosing mL/min Estimated GFR (MDRD) mL/min Glucose (74-106) mg/dL POC Glucose 128 H (65-110) mg/dl Calcium (8.5-10.1) mg/dL C-Reactive Protein (<=0.9) mg/dL EMERY Results - Last 24 hrs: Microbiology 12/26/18 11:51 Aerobic Blood Culture - Final Blood - Venous - Lab Draw NO GROWTH AFTER 5 DAYS Anaerobic Blood Culture - Final NO GROWTH AFTER 5 DAYS 12/26/18 11:40 Aerobic Blood Culture - Final Blood - Venous NO GROWTH AFTER 5 DAYS Anaerobic Blood Culture - Final NO GROWTH AFTER 5 DAYS Med Orders - Current: Current Medications Discontinued Medications Acetaminophen (Tylenol) 650 mg PO Q4H PRN PRN Reason: Pain Last Admin: 06/16/19 19:00 Dose: 650 mg Albuterol/Ipratropium (Duoneb 3.0-0.5 Mg/3 Ml) 3 ml NEB QID [facility] Last Admin: 01/01/19 12:13 Dose: 3 ml Allopurinol (Zyloprim) 300 mg PO QAM [facility] Last Admin: 01/01/19 08:49 Dose: 300 mg Arformoterol Tartrate (Brovana) 15 mcg INH BID [facility] Arformoterol Tartrate (Brovana) 15 mcg INH Q12HR [facility] Last Admin: 01/01/19 08:40 Dose: 15 mcg Artificial Tears (Liquitears 1.4% Ophth Soln) 1 ml EYEBOTH TID@0800,1200,2000 [facility] Last Admin: 01/01/19 12:22 Dose: 1 drop Budesonide (Pulmicort) 0.5 mg INH BID [facility] Budesonide (Pulmicort) 0.5 mg INH Q12HR [facility] Last Admin: 12/27/18 19:27 Dose: 0.5 mg Carvedilol (Coreg) 12.5 mg PO BID [facility] Carvedilol (Coreg) 12.5 mg PO Q12HR [facility] Last Admin: 01/01/19 08:47 Dose: 12.5 mg Ceftazidime (Fortaz) 1 gm IVPUSH Q8H [facility] Last Admin: 01/01/19 13:14 Dose: 1 gm Cholecalciferol (Vitamin D3) 1,000 units PO DAILY [facility] Last Admin: 12/27/18 09:23 Dose: 1,000 units Cyanocobalamin (Vitamin B12) 1,000 mcg PO DAILY [facility] Last Admin: 12/27/18 09:21 Dose: 1,000 mcg Docusate Sodium (Colace) 100 mg PO BID [facility] Last Admin: 01/01/19 08:48 Dose: 100 mg Enoxaparin Sodium (Lovenox) 30 mg SUBCUT DAILY [facility] Last Admin: 01/01/19 08:46 Dose: 30 mg Furosemide (Lasix) 40 mg PO BID [facility] Last Admin: 12/27/18 17:08 Dose: 40 mg Furosemide (Lasix) 40 mg PO BIDDIURETIC [facility] Last Admin: 12/29/18 11:27 Dose: 40 mg Furosemide (Lasix) 40 mg IVPUSH BIDDIURETIC [facility] Last Admin: 01/01/19 12:13 Dose: 40 mg Gabapentin (Neurontin) 300 mg PO TID [facility] Last Admin: 01/01/19 12:13 Dose: 300 mg Hydrocortisone (Proctozone-Hc 2.5% Crm) 1 gm TOP BID [facility] Last Admin: 12/28/18 07:41 Dose: 1 applic Hydrocortisone (Proctozone-Hc 2.5% Crm) 1 gm TOP BID@0800,1999 [facility] Last Admin: 01/01/19 10:53 Dose: 1 applic Levofloxacin/Dextrose 500 mg/ (Premix) 100 mls @ 100 mls/hr IV Q24H [facility] Last Admin: 12/29/18 13:02 Dose: 100 mls/hr Metronidazole 500 mg/ Premix 100 mls @ 100 mls/hr IV Q8H [facility] Last Admin: 12/29/18 14:12 Dose: 100 mls/hr Insulin Glargine (Lantus) 20 unit SUBCUT BEDTIME [facility] Last Admin: 12/31/18 19:01 Dose: 20 unit Insulin Human Lispro (Humalog) 8 unit SUBCUT TID@0800,1200,1800 [facility] Last Admin: 01/01/19 12:19 Dose: 8 units Insulin Human NPH (Humulin N) 30 unit SQ DAILY [facility] Last Admin: 01/01/19 08:55 Dose: 30 unit Isosorbide Mononitrate (Imdur) 60 mg PO DAILY [facility] Last Admin: 01/01/19 08:50 Dose: 60 mg Levofloxacin (Levaquin) 500 mg PO DAILY@1200 [facility] Last Admin: 01/01/19 12:13 Dose: 500 mg Magnesium Oxide (Magnesium Oxide) 400 mg PO BID [facility] Last Admin: 01/01/19 08:48 Dose: 400 mg Methylprednisolone Sodium Succinate (Solu-Medrol) 40 mg IVPUSH DAILY [facility] Last Admin: 01/01/19 08:45 Dose: 40 mg Metronidazole (Flagyl) 500 mg PO TID@0800,1400,2000 [facility] Last Admin: 01/01/19 13:14 Dose: 500 mg Multivitamins/Minerals/Vitamin C (Tab-A-Prisca) 1 tab PO DAILY [facility] Last Admin: 12/27/18 09:26 Dose: 1 tab Ferrous Fumarate/Vitamin C (Vitron-C) Tabs Own Med 1 tab PO BID [facility] Last Admin: 12/27/18 17:10 Dose: 1 tab Omeprazole (Omeprazole) 20 mg PO BID [facility] Last Admin: 01/01/19 08:50 Dose: 20 mg Potassium Chloride (Potassium Chloride Solution) 20 meq PO DAILY [facility] Last Admin: 01/01/19 08:42 Dose: 20 meq Sodium Chloride (Saline Flush) 10 ml FLUSH ASDIRECTED PRN PRN Reason: Keep Vein Open Last Admin: 01/01/19 12:14 Dose: 10 ml Sodium Chloride (Saline Flush) 10 ml FLUSH Q12HR [facility] Last Admin: 01/01/19 08:44 Dose: 10 ml Tamsulosin HCl (Flomax) 0.4 mg PO DAILY [facility] Last Admin: 01/01/19 08:46 Dose: 0.4 mg
== END 2019-01-01 14:20 | DRG 190 ==
LOC: LL.MS 10:53
PROVIDERS: ADMIT Nurse Practitioner Family; ATTEND Nurse Practitioner Family
DX: J44.0 Chronic obstructive pulmonary disease with (acute) lower respiratory infection (principal); J18.1 Lobar pneumonia, unspecified organism; I50.32 Chronic diastolic (congestive) heart failure; J96.11 Chronic respiratory failure with hypoxia; I13.0 Hypertensive heart and chronic kidney disease with heart failure and stage 1 through stage 4 chronic kidney disease, or unspecified chronic kidney disease; J44.1 Chronic obstructive pulmonary disease with (acute) exacerbation; K21.9 Gastro-esophageal reflux disease without esophagitis; N18.9 Chronic kidney disease, unspecified; I25.10 Atherosclerotic heart disease of native coronary artery without angina pectoris; E11.22 Type 2 diabetes mellitus with diabetic chronic kidney disease; E78.5 Hyperlipidemia, unspecified; M10.9 Gout, unspecified; E11.40 Type 2 diabetes mellitus with diabetic neuropathy, unspecified; E66.9 Obesity, unspecified; G47.33 Obstructive sleep apnea (adult) (pediatric); M19.90 Unspecified osteoarthritis, unspecified site; E11.319 Type 2 diabetes mellitus with unspecified diabetic retinopathy without macular edema; E78.00 Pure hypercholesterolemia, unspecified; N40.0 Benign prostatic hyperplasia without lower urinary tract symptoms; G89.29 Other chronic pain; M54.9 Dorsalgia, unspecified; M81.0 Age-related osteoporosis without current pathological fracture; D64.9 Anemia, unspecified; Z90.89 Acquired absence of other organs; Z98.41 Cataract extraction status, right eye; Z98.42 Cataract extraction status, left eye; Z90.49 Acquired absence of other specified parts of digestive tract; Z79.899 Other long term (current) drug therapy; Z88.1 Allergy status to other antibiotic agents; Z88.8 Allergy status to other drugs, medicaments and biological substances; Z99.81 Dependence on supplemental oxygen; Z68.37 Body mass index [BMI] 37.0-37.9, adult
CPT/HCPCS: 36415; 71046; 80048; 80053; 81001; 82962; 84550; 85025; 85652; 86140; 86738; 87040; 87086; 94640; 97110-GO; 97162-GP; 97165-GO; 97530-GO; 97530-GP; 97535-GO; A4217; A9270-GY; J0713; J1650; J1815; J1815-GY; J1940; J1956; J2920; J3490; J7620-GY

== ENCOUNTER 2019-01-21 11:36 | Inpatient (IN) | payer MEDICARE, BC ==
[2019-01-21] MEDS ORDERED: Furosemide 40 MG/4 ML VIAL IVPUSH ONE (11:41)
[2019-01-21] MEDS ORDERED: Albuterol/Ipratropium 3.0-0.5 MG/3 ML Neb Soln NEB ONE (11:41)
[2019-01-21] MEDS ORDERED: methylPREDNISolone Sodium Succinate 125 MG/2 ML SDV IVPUSH ONE (11:42)
[2019-01-21] MEDS: Sodium Chloride 0.9% 10 ML Syringe FLUSH PRN ×2 (11:59→17:51)
[2019-01-21 12:21] LABS: CHLORIDE,CL 95 mmol/L (98-107); SODIUM,NA 134 mmol/L (136-145)
[2019-01-21] MEDS ORDERED: Azithromycin 500 MG in Sodium Chloride 0.9% 250 ML IV SCH (12:45)
[2019-01-21] MEDS ORDERED: cefTRIAXone 1 GM in Sodium Chloride 0.9% 100 ML IV SCH (12:45)
[2019-01-21] MEDS ORDERED: Iopamidol 755 Mg/ML 100 ML Bottle IVPUSH ONE (13:50)
[2019-01-21] MEDS ORDERED: Acetaminophen 325 MG Tab PO PRN (15:44)
[2019-01-21] MEDS ORDERED: Hydrocortisone 2.5% Crm 30 GM Tube TOP PRN (15:44)
--- NOTE | 2019-01-21 16:00 | EDM.PDOC ---
ED HPI GENERAL MEDICAL PROBLEM - General Chief Complaint: Respiratory Problem Stated Complaint: shortness of breath Time Seen by Provider: 01/21/19 12:02 Source of Information: Reports: EMS, Other ([facility]) History Limitations: Reports: No Limitations - History of Present Illness INITIAL COMMENTS - FREE TEXT/NARRATIVE: Patient brought to ER for evaluation of increased SOB, temp 99, worsening O2 sats Patient has history of severe COPD. O2 dependent. O2 sats on usual O2 dose in mid 80s prior to transfer. Patient says he has not felt well for several days but is vague as far as specifics. Denies HEENT change such as cold symptoms, sore throat, headache. He says he has allergies though and sometimes has a runny nose. Resp is negative for obvious new cough/productive cough. Denies chest pain. CV negative for palpitations/chest pain. Abd: negative for appetite change, nausea/emesis/bowel changes. : negative for acute changes. Neuro: negative for acute changes/new weakness or numbness. - Related Data Allergies Allergy/AdvReac Type Severity Reaction Status Date / Time celecoxib Allergy Cannot Verified 10/14/18 11:02 Remember diltiazem Allergy Cannot Verified 10/14/18 11:02 Remember [id number] Reductase Allergy Muscle Verified 10/14/18 11:02 Inhibitor Aches tiotropium bromide Allergy URINARY Verified 10/14/18 11:02 [From [facility] with RETENTION [facility]] Home Meds: Home Meds Arformoterol [Brovana] 2 ml INH BID 05/04/14 [History] Budesonide [Pulmicort] 2 ml INH BID 05/04/14 [History] Gabapentin [Neurontin] 300 mg PO TID 05/04/14 [History] Multivitamin [Multivitamins] 1 tab PO DAILY 05/04/14 [History] Omeprazole 20 mg PO BID 05/04/14 [History] Isosorbide Mononitrate [Imdur] 60 mg PO DAILY 10/26/16 [History] Allopurinol [Zyloprim] 300 mg PO QAM 06/13/17 [History] Cholecalciferol (Vitamin D3) [Vitamin D3] 1,000 unit PO DAILY 06/13/17 [History] Docusate Sodium [Colace] 100 mg PO BID 12/28/17 [History] Acetaminophen [Tylenol] 650 mg PO Q4H PRN 05/13/18 [History] Albuterol/Ipratropium [DuoNeb 3.0-0.5 MG/3 ML] 3 ml NEB QID 05/13/18 [History] Magnesium Oxide [Magnesium] 400 mg PO BID 05/13/18 [History] Tamsulosin HCl [Flomax] 0.4 mg PO DAILY 06/13/18 [History] Insulin Detemir [Levemir Flextouch] 20 units SUBCUT BEDTIME #1 06/19/18 [Rx] Insulin Aspart [NovoLOG] 8 unit SQ TID@0800,1200,1800 09/03/18 [History] Polyvinyl Alcohol [LiquiTears 1.4% Ophth Soln] 1 ml EYEBOTH TID@0800,1200,2000 09/03/18 [History] Carvedilol [Coreg] 12.5 mg PO BID 12/26/18 [History] Cyanocobalamin (Vitamin B-12) [B-12] 1,000 mcg PO DAILY 12/26/18 [History] Furosemide 40 mg PO BID 12/26/18 [History] Hydrocortisone [Hydrocortisone 2.5% Crm] 1 applicful RECTAL BID PRN 12/26/18 [ History] Potassium Chloride [Potassium Chloride Solution] 20 meq PO DAILY 12/26/18 [ History] guaiFENesin/Dextromethorphan [Safetussin DM] 10 ml PO QID 12/26/18 [History] predniSONE [Prednisone] 20 mg PO DAILY 12/26/18 [History] Iron,Carbonyl/Ascorbic Acid [Vitron-C Tablet] 1 each PO BID 01/21/19 [History] Loratadine [Claritin] 10 mg PO DAILY 01/21/19 [History] Past Medical History HEENT History: Reports: Cataract, Hard of Hearing, Impaired Vision, Macular Degeneration, Other (See Below) Other HEENT History: Glasses, macular degeneration and diabetic retinopathy, 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 and chronic left- sided tinnitus secondary to Mnire's disease, patient has not used his hearing aides secondary to ineffectiveness Cardiovascular History: Reports: Aneurysm, Arrhythmia, CAD, Cardiomyopathy, Heart Failure, Heart Murmur, High Cholesterol, Hypertension, PVD, Other (See Below) Other Cardiovascular History: PVCs, bigeminy, 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 Left atrial enlargement Respiratory History: Reports: Bronchitis, Recurrent, COPD, Intubation, Previous , Pneumonia, Recurrent, Pulmonary Fibrosis, Sleep Apnea, Other (See Below) Other Respiratory History: O2 and steroid-dependent COPD with pulmonary fibrosis by chest x-ray, nasal CPAP therapy at 16 cm water pressure with 2 L per minute oxygen bleed Gastrointestinal History: Reports: Chronic Constipation, Chronic Diarrhea, Colon Polyp, Diverticulosis, Gastritis, GERD, Hemorrhoids, Helicobacter Pylori, PUD, Other (See Below) Other Gastrointestinal History: Lower GI bleed in October 2018 possibly secondary to hemorrhoids? Severe diverticulosis of the descending colon by colonoscopy on 09/25/09, GERD with history of esophagitis and upper GI bleed on 09/20/09, peptic ulcer and duodenitis by EGD with previously treated H. pylori, umbilical hernia , benign hepatic cysts by CT scan on 05/26/98 Genitourinary History: Reports: Acute Renal Failure, BPH, Chronic Renal Insuffiency, Diabetic Nephropathy, Prostate Disorder, Renal Disease, Retention, Urinary, UTI, Recurrent, Other (See Below) Other Genitourinary History: Acute renal failure with secondary hypotension secondary to NSAIDs use on 10/01/14, BPH with history of PSA elevation, end- stage renal disease-stage III, erectile dysfunction Musculoskeletal History: Reports: Arthritis, Back Pain, Chronic, Fracture, Gout , Neck Pain, Chronic, Osteoarthritis, Osteoporosis, Other (See Below) Other Musculoskeletal History: Spinal stenosis at L4-5 with disc prolapse, positive NENO however no known SLE, proximal left fibular fracture in September 2014 Neurological History: Reports: Neuropathy, Diabetic, Neuropathy, Peripheral Psychiatric History: Reports: None Endocrine/Metabolic History: Reports: Diabetes, Type II, IDDM, Osteoporosis, Vitamin D Deficiency Hematologic History: Reports: Anemia, B12 Deficiency, Iron Deficiency, Other ( See Below) Other Hematologic History: Chronic anemia history of renal disease, iron and vitamin B 12 deficiency. Thrombocytopenia. 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/04 Dermatologic History: Reports: Venous Stasis Dermatitis - Infectious Disease History Infectious Disease History: Reports: Measles, Mumps, Shingles - Past Surgical History Head Surgeries/Procedures: Reports: None HEENT Surgical History: Reports: Adenoidectomy, Cataract Surgery, Laser Surgery , Oral Surgery, Tonsillectomy Other HEENT Surgeries/Procedures: Right cataract surgery on 05/23/03, left cataract surgery on 06/12/04, tonsillectomy at age 9, left eye YAG treatment, complete teeth extraction Cardiovascular Surgical History: Reports: None Respiratory Surgical History: Reports: None GI Surgical History: Reports: Colonoscopy, EGD, Polypectomy Other GI Surgeries/Procedures: Incomplete colonoscopy to 30 cm on 10/19/18. Previous complete Colonoscopy and EGD on 09/25/09, small bowel series on 10/02/09 Male Surgical History: Reports: Prostatectomy, TURP-Transurethral Resection of Prostate Other Male Surgeries/Procedures: Last cystoscopy on 12/28/17. Suprapubic partial prostatectomy in September 2004 with no evidence of prostate cancer despite previous PSA elevation Endocrine Surgical History: Reports: None Neurological Surgical History: Reports: Lumbar Spine, Other (See Below) Other Neurological Surgeries/Procedures: Unknown type of back surgeries x2 in the lumbar region Musculoskeletal Surgical History: Reports: None Oncologic Surgical History: Reports: Other (See Below) Other Oncologic Surgeries/Procedures: Mohs procedure as above Dermatological Surgical History: Reports: Skin Biopsy - Past Imaging History Past Imaging History: Reports: Cardiac Echo (Last echocardiogram on 02/07/18 with ejection fraction of 5560 percent and previous echocardiograms in September 2014 and 12/17/11.), Carotid US (09/13/11), CAT Scan (Negative CTA of the chest on 07/01/16. CT of the abdomen and pelvis with last evaluation in November 2013. CT of the chest on 05/26/98.), DEXA Scan (01/24/09), Holter Monitor (12/18/03), MRI ( Lumbar spine on 05/03/06), PFT (Last on 06/30/06), Sleep Study (11/27/11), Stress Testing (Dobutamine Cardiolite stress test on 02/09/07 with evidence of inferior wall ischemia and ejection fraction of 55%.), Ultrasound (Bilateral renal ultrasound in September 2014), Venous Doppler (Last venous Doppler studies of lower extremities on 06/29/16 with previous evaluation September 2014), Other (See Below) (VQ scan at [facility] in September 1999) Social & Family History - Family History HEENT: Reports: None Cardiac: Reports: CAD, Hypertension, [place], Other (See Below) Other Cardiac Family History: Maternal uncle with fatal NJ at age 42, another maternal uncle with fatal NJ at age 48, mother with hypertension, patient denies history of coronary artery disease in sister despite [place] records Respiratory: Reports: COPD, Sleep Apnea, Other (See Below) Other Respiratory Family Hisory: Brother with COPD and sleep apnea with history of tobacco use GI: Reports: None : Reports: None OBGYN: Reports: None Musculoskeletal: Reports: Arthritis, Osteoarthritis, Other (See Below) Other Musculoskeletal Family History: Brother with osteoarthritis Neurological: Reports: Cerebral Aneurysms, CVA, Neuropathy, Peripheral, Other ( See Below) Other Neurological Family History: Sister with fatal cerebral aneurysm at age 42 , maternal uncle with fatal hemorrhagic CVA at age 65 , patient denies CVA in brother despite [place] records, brother with peripheral neuropathy Psychiatric: Reports: None Endocrine/Metabolic: Reports: None Hematologic: Reports: None Immunologic: Reports: None Dermatologic: Reports: None Oncologic: Reports: Breast, Other (See Below) Other Oncologic Family History: Mother with unknown type of fatal cancer at age 65, sister with breast cancer in her 60s - Tobacco Use Smoking Status *Q: Former Smoker Years of Tobacco use: 40 Packs/Tins Daily: 1 Used Tobacco, but Quit: Yes Month/Year Tobacco Last Used: 2005 - Caffeine Use Caffeine Use: Reports: Coffee Caffeine Use Comment: 3-4 cups of coffee per day, 1 soda per week - Alcohol Use Alcohol Use History: No - Recreational Drug Use Recreational Drug Use: No - Living Situation & Occupation Living situation: Reports: (1963, 3 children), Extended Care Facility ( [facility]) Occupation: Retired ED ROS GENERAL - Review of Systems Review Of Systems: ROS reveals no pertinent complaints other than HPI. ED EXAM, GENERAL - Physical Exam Exam: See Below Exam Limited By: No Limitations General Appearance: Alert, Obese, Other (No acute distress) Eye Exam: Bilateral Eye: EOMI, PERRL Ears: Normal External Exam Nose: No: Nasal Deformity, Nasal Swelling, Nasal Drainage Throat/Mouth: Normal Lips, Normal Voice, No Airway Compromise. No: Perioral Cyanosis Head: Atraumatic, Normocephalic Neck: Supple, Non-Tender, Full Range of Motion Respiratory/Chest: No Accessory Muscle Use, Wheezing, Accessory Muscle Use. No : Crackles, Rales, Rhonchi, Stridor, Pleural Rub, Retractions Cardiovascular: Tachycardia GI/Abdominal: Normal Bowel Sounds, Soft, Non-Tender (Male) Exam: Deferred Rectal (Males) Exam: Deferred Back Exam: No: CVA Tenderness (L), CVA Tenderness (R), Muscle Spasm, Paraspinal Tenderness, Vertebral Tenderness Extremities: Non-Tender, Normal Capillary Refill. No: Increased Warmth, Mottled , Pallor, Redness Neurological: Alert, Oriented, Other (equal tone/strength bilaterally) Psychiatric: Normal Affect, Normal Mood Skin Exam: Warm, Dry, Intact, Normal Color Course - Vital Signs Last Recorded V/S: Last Vital Signs Temp 37.3 C 01/21/19 12:16 Pulse 105 H 01/21/19 12:16 Resp 20 01/21/19 12:16 BP 121/56 L 01/21/19 12:16 Pulse Ox 94 L 01/21/19 12:16 - Orders/Labs/Meds Orders: Active Orders 24 hr Category Date Time Status Patient Status [ADT] Routine ADT 01/21/19 15:40 Active Blood Glucose Check, Bedside [RC] QIDACANDBED Care 01/21/19 15:40 Active Intake and Output [RC] QSHIFT Care 01/21/19 15:42 Active Oxygen Therapy [RC] PRN Care 01/21/19 15:40 Active Pulse Oximetry [RC] PRN Care 01/21/19 15:42 Active RT Aerosol Therapy [RC] ASDIRECTED Care 01/21/19 11:41 Active Up With Assistance [RC] ASDIRECTED Care 01/21/19 15:40 Active VTE/DVT Education [RC] PER UNIT ROUTINE Care 01/21/19 15:40 Active Vital Signs [RC] Q4H Care 01/21/19 15:40 Active [employer] Diet [DIET] Diet 01/21/19 Dinner Active Chest 1V Frontal [CR] Stat Exams 01/21/19 11:38 Taken PE Chest [Ang Chest] [CT] Stat Exams 01/21/19 12:45 Taken BASIC METABOLIC PANEL,BMP [CHEM] AM Lab 01/22/19 05:15 Ordered CBC WITH AUTO DIFF [HEME] AM Lab 01/22/19 05:15 Ordered CULTURE BLOOD [BC] Stat Lab 01/21/19 11:45 Received CULTURE BLOOD [BC] Stat Lab 01/21/19 12:02 Received LACTIC ACID [CHEM] Routine Lab 01/21/19 15:50 Ordered UA W/MICROSCOPIC [URIN] Stat Lab 01/21/19 12:19 Ordered Acetaminophen [Tylenol] Med 01/21/19 15:44 Ordered 650 mg PO Q4H PRN Albuterol/Ipratropium [DuoNeb 3.0-0.5 MG/3 ML] Med 01/21/19 16:00 Ordered 3 ml NEB QID Allopurinol [Zyloprim] Med 01/22/19 08:00 Ordered 300 mg PO QAM Arformoterol [Brovana] Med 01/21/19 18:00 Ordered 15 mcg INH BID Azithromycin [Zithromax] 500 mg Med 01/21/19 12:45 Active Sodium Chloride 0.9% [Normal Saline] 250 ml IV Q24H Budesonide [Pulmicort] Med 01/21/19 18:00 Ordered 0.5 mg INH BID Carvedilol [Coreg] Med 01/21/19 18:00 Ordered 12.5 mg PO BID Docusate Sodium [Colace] Med 01/21/19 18:00 Ordered 100 mg PO BID Enoxaparin [Lovenox] Med 01/22/19 09:00 Once 40 mg SUBCUT DAILY ONE Furosemide [Lasix] Med 01/21/19 18:00 Ordered 20 mg IVPUSH BID Gabapentin [Neurontin] Med 01/21/19 18:00 Ordered 300 mg PO TID Hydrocortisone [Hydrocortisone 2.5% Crm] Med 01/21/19 15:44 Ordered 1 applicful RECTAL BID PRN Insulin Aspart Med 01/21/19 18:00 Ordered 8 unit SQ TID@0800,1200,1800 Insulin Detemir [Levemir Flextouch] Med 01/21/19 20:00 Ordered 20 units SUBCUT BEDTIME Isosorbide Mononitrate [Imdur] Med 01/22/19 08:00 Ordered 60 mg PO DAILY Loratadine [Claritin] Med 01/22/19 08:00 Ordered 10 mg PO DAILY Magnesium Oxide [Magnesium] Med 01/21/19 18:00 Ordered 400 mg PO BID Omeprazole Med 01/21/19 18:00 Ordered 20 mg PO BID Polyvinyl Alcohol [LiquiTears 1.4% Ophth Soln] Med 01/21/19 20:00 Ordered 1 ml EYEBOTH TID@0800,1200,2000 Potassium Chloride [Potassium Chloride Solution] Med 01/22/19 08:00 Ordered 20 meq PO DAILY Sodium Chloride 0.9% [Saline Flush] Med 01/21/19 11:42 Active 10 ml FLUSH ASDIRECTED PRN Tamsulosin [Flomax] Med 01/22/19 08:00 Ordered 0.4 mg PO DAILY cefTRIAXone [Rocephin] 1 gm Med 01/21/19 12:45 Active Sodium Chloride 0.9% [Normal Saline] 100 ml IV Q24H methylPREDNISolone Sod Succ [Solu-MEDROL] Med 01/22/19 08:00 Ordered 40 mg IVPUSH DAILY Blood Culture x2 Reflex Set [OM.PC] Stat Oth 01/21/19 11:40 Ordered Saline Lock Insert [OM.PC] Routine Oth 01/21/19 11:42 Ordered Resuscitation Status Routine Resus Stat 01/21/19 15:40 Ordered Medication Orders Acetaminophen (Tylenol) 650 mg PO Q4H PRN PRN Reason: Pain Albuterol/Ipratropium (Duoneb 3.0-0.5 Mg/3 Ml) 3 ml NEB QID [facility] Arformoterol Tartrate (Brovana) 15 mcg INH BID [facility] Artificial Tears (Liquitears 1.4% Ophth Soln) 1 ml EYEBOTH TID@0800,1200,2000 [facility] Budesonide (Pulmicort) 0.5 mg INH BID [facility] Carvedilol (Coreg) 12.5 mg PO BID [facility] Docusate Sodium (Colace) 100 mg PO BID [facility] Enoxaparin Sodium (Lovenox) 40 mg SUBCUT DAILY ONE Stop: 01/22/19 09:01 Furosemide (Lasix) 20 mg IVPUSH BID [facility] Gabapentin (Neurontin) 300 mg PO TID [facility] Azithromycin 500 mg/ Sodium (Chloride) 250 mls @ 250 mls/hr IV Q24H SALOM[facility]N Last Admin: 01/21/19 12:58 Dose: 250 mls/hr Ceftriaxone Sodium 1 gm/ (Sodium Chloride) 100 mls @ 200 mls/hr IV Q24H SALOM[facility]N Last Admin: 01/21/19 12:58 Dose: 200 mls/hr Isosorbide Mononitrate (Imdur) 60 mg PO DAILY [facility] Loratadine (Claritin) 10 mg PO DAILY [facility] Methylprednisolone Sodium Succinate (Solu-Medrol) 40 mg IVPUSH DAILY [facility] Non-Formulary Medication (Allopurinol [Zyloprim]) 300 mg PO QAM [facility] Non-Formulary Medication (Hydrocortisone [Hydrocortisone 2.5% Crm]) 1 applicful RECTAL BID PRN PRN Reason: Hemorrhoids Non-Formulary Medication (Insulin Aspart) 8 unit SQ TID@0800,1200,1800 [facility] Non-Formulary Medication (Insulin Detemir [Levemir Flextouch]) 20 units SUBCUT BEDTIME [facility] Non-Formulary Medication (Magnesium Oxide [Magnesium]) 400 mg PO BID [facility] Omeprazole (Omeprazole) 20 mg PO BID [facility] Potassium Chloride (Potassium Chloride Solution) 20 meq PO DAILY [facility] Sodium Chloride (Saline Flush) 10 ml FLUSH ASDIRECTED PRN PRN Reason: Keep Vein Open Last Admin: 01/21/19 11:59 Dose: 10 ml Tamsulosin HCl (Flomax) 0.4 mg PO DAILY [facility] Labs: Laboratory Tests 01/21/19 01/21/19 01/21/19 Range/Units 12:02 12:02 12:02 WBC 27.7 H (4.0-10.2) K/uL RBC 3.18 L (4.33-5.41) M/uL Hgb 11.7 L D (13.1-16.8) g/dL Hct 34.2 L (39.0-49.0) % MCV 107.5 H (84.0-98.0) fL MCH 36.8 H (28.2-33.3) pg MCHC 34.2 (31.7-36.0) g/dL RDW 19.5 H (11.2-14.1) % Plt Count 156 (150-350) K/uL Neut % (Auto) 82.7 H (45.0-80.0) % Lymph % (Auto) 8.2 L (10.0-50.0) % [place] % (Auto) 8.7 (2.0-14.0) % Eos % (Auto) 0.3 (0.0-5.0) % Baso % (Auto) 0.1 (0.0-2.0) % Neut # (Auto) 22.88 H (1.40-7.00) K/uL Lymph # (Auto) 2.27 (0.50-3.50) K/uL [place] # (Auto) 2.41 H (0.00-1.00) K/uL Eos # (Auto) 0.07 (0.00-0.50) K/uL Baso # (Auto) 0.04 (0.00-0.20) K/uL D-Dimer, Quantitative 1340 H (0-400) ng/mL Sodium 134 L (136-145) mmol/L Potassium 5.0 (3.5-5.1) mmol/L Chloride 95 L (98-107) mmol/L Carbon Dioxide 29.6 (21.0-32.0) mmol/L BUN 28 H (7-18) mg/dL Creatinine 1.16 (0.51-1.17) mg/dL Est Cr Clr Drug Dosing TNP Estimated GFR (MDRD) > 60 mL/min Glucose 341 H (74-106) mg/dL Calcium 9.2 (8.5-10.1) mg/dL Magnesium 1.8 (1.8-2.4) mg/dL Total Bilirubin 0.6 (0.2-1.0) mg/dL AST 21 (15-37) U/L ALT 36 (12-78) U/L Alkaline Phosphatase 82 (46-116) IU/L NT-Pro-B Natriuret Pep (0-125) pg/mL Total Protein 6.3 L (6.4-8.2) g/dL Albumin 2.7 L (3.4-5.0) g/dL 01/21/19 Range/Units 12:02 WBC (4.0-10.2) K/uL RBC (4.33-5.41) M/uL Hgb (13.1-16.8) g/dL Hct (39.0-49.0) % MCV (84.0-98.0) fL MCH (28.2-33.3) pg MCHC (31.7-36.0) g/dL RDW (11.2-14.1) % Plt Count (150-350) K/uL Neut % (Auto) (45.0-80.0) % Lymph % (Auto) (10.0-50.0) % [place] % (Auto) (2.0-14.0) % Eos % (Auto) (0.0-5.0) % Baso % (Auto) (0.0-2.0) % Neut # (Auto) (1.40-7.00) K/uL Lymph # (Auto) (0.50-3.50) K/uL [place] # (Auto) (0.00-1.00) K/uL Eos # (Auto) (0.00-0.50) K/uL Baso # (Auto) (0.00-0.20) K/uL D-Dimer, Quantitative (0-400) ng/mL Sodium (136-145) mmol/L Potassium (3.5-5.1) mmol/L Chloride (98-107) mmol/L Carbon Dioxide (21.0-32.0) mmol/L BUN (7-18) mg/dL Creatinine (0.51-1.17) mg/dL Est Cr Clr Drug Dosing Estimated GFR (MDRD) mL/min Glucose (74-106) mg/dL Calcium (8.5-10.1) mg/dL Magnesium (1.8-2.4) mg/dL Total Bilirubin (0.2-1.0) mg/dL AST (15-37) U/L ALT (12-78) U/L Alkaline Phosphatase (46-116) IU/L NT-Pro-B Natriuret Pep 361 H (0-125) pg/mL Total Protein (6.4-8.2) g/dL Albumin (3.4-5.0) g/dL Meds: Medications Generic Name Dose Route Start Last Admin Trade Name Freq PRN Reason Stop Dose Admin Acetaminophen 650 mg 01/21/19 15:44 Tylenol PO Q4H PRN Pain Albuterol/Ipratropium 3 ml 01/21/19 16:00 Duoneb 3.0-0.5 Mg/3 Ml NEB QID [facility] Arformoterol Tartrate 15 mcg 01/21/19 18:00 Brovana INH BID [facility] Artificial Tears 1 ml 01/21/19 20:00 Liquitears 1.4% Ophth Soln EYEBOTH TID@0800,1200,2000 [facility] Budesonide 0.5 mg 01/21/19 18:00 Pulmicort INH BID [facility] Carvedilol 12.5 mg 01/21/19 18:00 Coreg PO BID [facility] Docusate Sodium 100 mg 01/21/19 18:00 Colace PO BID [facility] Enoxaparin Sodium 40 mg 01/22/19 09:00 Lovenox SUBCUT 01/22/19 09:01 DAILY ONE Furosemide 20 mg 01/21/19 18:00 Lasix IVPUSH BID [facility] Gabapentin 300 mg 01/21/19 18:00 Neurontin PO TID [facility] Azithromycin 500 mg/ Sodium 250 mls @ 250 mls/hr 01/21/19 12:45 01/21/19 12: 58 Chloride IV 250 mls/hr Q24H [facility] Administration Ceftriaxone Sodium 1 gm/ 100 mls @ 200 mls/hr 01/21/19 12:45 01/21/19 12:58 Sodium Chloride IV 200 mls/hr Q24H [facility] Administration Isosorbide Mononitrate 60 mg 01/22/19 08:00 Imdur PO DAILY [facility] Loratadine 10 mg 01/22/19 08:00 Claritin PO DAILY [facility] Methylprednisolone Sodium Succinate 40 mg 01/22/19 08:00 Solu-Medrol IVPUSH DAILY [facility] Non-Formulary Medication 300 mg 01/22/19 08:00 Allopurinol [Zyloprim] PO QAM [facility] Non-Formulary Medication 1 applicful 01/21/19 15:44 Hydrocortisone [Hydrocortisone 2.5% Crm] RECTAL BID PRN Hemorrhoids Non-Formulary Medication 8 unit 01/21/19 18:00 Insulin Aspart SQ TID@0800,1200,1800 [facility] Non-Formulary Medication 20 units 01/21/19 20:00 Insulin Detemir [Levemir Flextouch] SUBCUT BEDTIME [facility] Non-Formulary Medication 400 mg 01/21/19 18:00 Magnesium Oxide [Magnesium] PO BID [facility] Omeprazole 20 mg 01/21/19 18:00 Omeprazole PO BID [facility] Potassium Chloride 20 meq 01/22/19 08:00 Potassium Chloride Solution PO DAILY [facility] Sodium Chloride 10 ml 01/21/19 11:42 01/21/19 11:59 Saline Flush FLUSH 10 ml ASDIRECTED PRN Administration Keep Vein Open Tamsulosin HCl 0.4 mg 01/22/19 08:00 Flomax PO DAILY [facility] Discontinued Medications Generic Name Dose Route Start Last Admin Trade Name Frahan PRN Reason Stop Dose Admin Albuterol/Ipratropium 3 ml 01/21/19 11:41 01/21/19 11:59 Duoneb 3.0-0.5 Mg/3 Ml NEB 01/21/19 11:42 3 ml ONETIME ONE Administration Furosemide 40 mg 01/21/19 11:41 01/21/19 11:59 Lasix IVPUSH 01/21/19 11:42 40 mg NOW ONE Administration Iopamidol 100 ml 01/21/19 13:50 01/21/19 14:36 [id number] (76%) IVPUSH 01/21/19 13:51 100 ml ONETIME ONE Administration Methylprednisolone Sodium Succinate 125 mg 01/21/19 11:42 01/21/19 11:59 Solu-Medrol IVPUSH 01/21/19 11:43 125 mg ONETIME ONE Administration - Radiology Interpretation Free Text/Narrative:: CT obtained after initial chest film due to + ddimer. Noted to have increased atelectasis in bases when compared to previous CT. Radiology could not rule out presence of infiltrate in this area. Changes consistent with severe emphysema. CT Results Date: 01/21/19 CT Results Time: 15:24 - Re-Assessments/Exams Free Text/Narrative Re-Assessment/Exam: 01/21/19 16:03 Patient received DuoNeb shortly after arrival. Also received SoluMedrol and Lasix. He did say that he felt better when asked about 30minutes after receiving treatments. Blood cultures drawn. WBC 27, however patient has run quite high in past and usually has elevated WBC. Is receiving chronic steroids. Zithromax and Rocephin ordered. DDImer elevated, however patient does usually have elevated DDimer in past when chart is reviewed. Not on anticoagulants. CT ordered to rule out new PE. CT was negative for PE but did show progressive atelectasis at bases when compared to last CT. Radiology could not rule out presence of new infiltrate in these areas. They did note that emphysematous changes in patient's lungs are severe. Given the worsening hypoxemia compared to patient's baseline and elevated WBC, it was elected to admit the patient for treatment of suspected COPD exacerbation and possible early pneumonia. Departure - Departure Time of Disposition: 15:30 Disposition: DC/Tfer to [facility] Condition: Fair Clinical Impression: COPD (chronic obstructive pulmonary disease) Qualifiers: COPD type: COPD with acute lower respiratory infection Qualified Code(s): J44.0 - Chronic obstructive pulmonary disease with acute lower respiratory infection - Discharge Information *PRESCRIPTION DRUG MONITORING PROGRAM REVIEWED*: Not Applicable *COPY OF PRESCRIPTION DRUG MONITORING REPORT IN PATIENT SG: Not Applicable Referrals: Dusty-Aixa Seaman MD [Primary Care Provider] - Forms: ED Department Discharge - Problem List & Annotations (1) COPD (chronic obstructive pulmonary disease) SNOMED Code(s): 89358708 Code(s): J44.9 - CHRONIC OBSTRUCTIVE PULMONARY DISEASE, UNSPECIFIED Status : Chronic Priority: High Current Visit: Yes Annotation/Comment:: Acute exacerbation of COPD. Continue supportive treatment with nebs/solumedrol/ supplemental O2. Receiving antibiotics for possible respiratory tract infection. Qualifiers: COPD type: COPD with acute exacerbation Qualified Code(s): J44.1 - Chronic obstructive pulmonary disease with (acute) exacerbation (2) Pneumonia SNOMED Code(s): 670605353 Code(s): J18.9 - PNEUMONIA, UNSPECIFIED ORGANISM Status: Acute Priority: High Current Visit: Yes Annotation/Comment:: Possible infiltrate noted on CT in lower lungs where atelactasis noted. Patient receiving Rocephin and Zithromax coverage. WBC elevated. Blood cultures pending. Temp of 99 noted at [facility] prior to transfer. No acute cough or URI complaints. (3) Leukocytosis SNOMED Code(s): 641445085, 983341841 Code(s): D72.829 - ELEVATED WHITE BLOOD CELL COUNT, UNSPECIFIED Status: Chronic Priority: Medium Current Visit: Yes Annotation/Comment:: Patient has been running elevated WBCs in general over the past few years when checked. Is on chronic steroids which may be affecting levels. Higher than usual today at 27,000 Qualifiers: Leukocytosis type: unspecified Qualified Code(s): D72.829 - Elevated white blood cell count, unspecified (4) Comfort measures only status SNOMED Code(s): 15602186648028 Code(s): Z51.5 - ENCOUNTER FOR PALLIATIVE CARE Status: Chronic Priority: Medium Current Visit: No (5) CHF, Congestive heart failure SNOMED Code(s): 92619798 Code(s): I50.9 - HEART FAILURE, UNSPECIFIED Status: Chronic Priority: High Current Visit: No Annotation/Comment:: Continue on Lasix, echocardiogram done 01/2018 showed EF 55-60% with grade II diastolic dysfunction (6) HTN, Benign hypertension SNOMED Code(s): 50724037 Code(s): I10 - ESSENTIAL (PRIMARY) HYPERTENSION Status: Chronic Priority : Medium Current Visit: No Annotation/Comment:: observe trends (7) Osteoarthritis SNOMED Code(s): 519393799 Code(s): M19.90 - UNSPECIFIED OSTEOARTHRITIS, UNSPECIFIED SITE Status: Chronic Priority: Medium Current Visit: No Annotation/Comment:: currently stable (8) Anemia SNOMED Code(s): 878797560 Code(s): D64.9 - ANEMIA, UNSPECIFIED Status: Chronic Priority: Low Current Visit: Yes Annotation/Comment:: chronic Qualifiers: Anemia type: other cause (9) Chronic respiratory failure with hypoxia SNOMED Code(s): 578511517 Code(s): J96.11 - CHRONIC RESPIRATORY FAILURE WITH HYPOXIA Status: Chronic Priority: Medium Current Visit: Yes (10) Chronic kidney disease (CKD) SNOMED Code(s): 647179823 Code(s): N18.9 - CHRONIC KIDNEY DISEASE, UNSPECIFIED Status: Chronic Priority: Low Current Visit: No Annotation/Comment:: stable Qualifiers: Chronic kidney disease stage: unspecified stage Qualified Code(s): N18.9 - Chronic kidney disease, unspecified (11) Elevated d-dimer SNOMED Code(s): 603765639 Code(s): R79.89 - OTHER SPECIFIED ABNORMAL FINDINGS OF BLOOD CHEMISTRY Status: Chronic Priority: Medium Current Visit: Yes Annotation/Comment:: Patient has chronic elevation of DDimer on chart review. Negative PE study performed today. - Problem List Review Problem List Initiated/Reviewed/Updated: Yes - My Orders Last 24 Hours: My Active Orders 01/21/19 11:38 Chest 1V Frontal [CR] Stat 01/21/19 11:40 Blood Culture x2 Reflex Set [OM.PC] Stat 01/21/19 11:41 RT Aerosol Therapy [RC] ASDIRECTED 01/21/19 11:42 Sodium Chloride 0.9% [Saline Flush] 10 ml FLUSH ASDIRECTED PRN Saline Lock Insert [OM.PC] Routine 01/21/19 11:45 CULTURE BLOOD [BC] Stat 01/21/19 12:02 CULTURE BLOOD [BC] Stat 01/21/19 12:19 UA W/MICROSCOPIC [URIN] Stat 01/21/19 12:45 PE Chest [Ang Chest] [CT] Stat Azithromycin [Zithromax] 500 mg Sodium Chloride 0.9% [Normal Saline] 250 ml IV Q24H cefTRIAXone [Rocephin] 1 gm Sodium Chloride 0.9% [Normal Saline] 100 ml IV Q24H 01/21/19 15:40 Patient Status [ADT] Routine Blood Glucose Check, Bedside [RC] QIDACANDBED Oxygen Therapy [RC] PRN Up With Assistance [RC] ASDIRECTED VTE/DVT Education [RC] PER UNIT ROUTINE Vital Signs [RC] Q4H Resuscitation Status Routine 01/21/19 15:42 Intake and Output [RC] QSHIFT Pulse Oximetry [RC] PRN 01/21/19 15:44 Acetaminophen [Tylenol] 650 mg PO Q4H PRN Hydrocortisone [Hydrocortisone 2.5% Crm] 1 applicful RECTAL BID PRN 01/21/19 15:50 LACTIC ACID [CHEM] Routine 01/21/19 16:00 Albuterol/Ipratropium [DuoNeb 3.0-0.5 MG/3 ML] 3 ml NEB QID 01/21/19 18:00 Arformoterol [Brovana] 15 mcg INH BID Budesonide [Pulmicort] 0.5 mg INH BID Carvedilol [Coreg] 12.5 mg PO BID Docusate Sodium [Colace] 100 mg PO BID Furosemide [Lasix] 20 mg IVPUSH BID Gabapentin [Neurontin] 300 mg PO TID Insulin Aspart 8 unit SQ TID@0800,1200,1800 Magnesium Oxide [Magnesium] 400 mg PO BID Omeprazole 20 mg PO BID 01/21/19 20:00 Insulin Detemir [Levemir Flextouch] 20 units SUBCUT BEDTIME Polyvinyl Alcohol [LiquiTears 1.4% Ophth Soln] 1 ml EYEBOTH TID@0800,1200, 199901/21/19 Dinner [employer] Diet [DIET] 01/22/19 05:15 BASIC METABOLIC PANEL,BMP [CHEM] AM CBC WITH AUTO DIFF [HEME] AM 01/22/19 08:00 Allopurinol [Zyloprim] 300 mg PO QAM Isosorbide Mononitrate [Imdur] 60 mg PO DAILY Loratadine [Claritin] 10 mg PO DAILY Potassium Chloride [Potassium Chloride Solution] 20 meq PO DAILY Tamsulosin [Flomax] 0.4 mg PO DAILY methylPREDNISolone Sod Succ [Solu-MEDROL] 40 mg IVPUSH DAILY 01/22/19 09:00 Enoxaparin [Lovenox] 40 mg SUBCUT DAILY ONE - Assessment/Plan Admission H&P: Please use this note as an admission H&P Last 24 Hours: My Active Orders 01/21/19 11:38 Chest 1V Frontal [CR] Stat 01/21/19 11:40 Blood Culture x2 Reflex Set [OM.PC] Stat 01/21/19 11:41 RT Aerosol Therapy [RC] ASDIRECTED 01/21/19 11:42 Sodium Chloride 0.9% [Saline Flush] 10 ml FLUSH ASDIRECTED PRN Saline Lock Insert [OM.PC] Routine 01/21/19 11:45 CULTURE BLOOD [BC] Stat 01/21/19 12:02 CULTURE BLOOD [BC] Stat 01/21/19 12:19 UA W/MICROSCOPIC [URIN] Stat 01/21/19 12:45 PE Chest [Ang Chest] [CT] Stat Azithromycin [Zithromax] 500 mg Sodium Chloride 0.9% [Normal Saline] 250 ml IV Q24H cefTRIAXone [Rocephin] 1 gm Sodium Chloride 0.9% [Normal Saline] 100 ml IV Q24H 01/21/19 15:40 Patient Status [ADT] Routine Blood Glucose Check, Bedside [RC] QIDACANDBED Oxygen Therapy [RC] PRN Up With Assistance [RC] ASDIRECTED VTE/DVT Education [RC] PER UNIT ROUTINE Vital Signs [RC] Q4H Resuscitation Status Routine 01/21/19 15:42 Intake and Output [RC] QSHIFT Pulse Oximetry [RC] PRN 01/21/19 15:44 Acetaminophen [Tylenol] 650 mg PO Q4H PRN Hydrocortisone [Hydrocortisone 2.5% Crm] 1 applicful RECTAL BID PRN 01/21/19 15:50 LACTIC ACID [CHEM] Routine 01/21/19 16:00 Albuterol/Ipratropium [DuoNeb 3.0-0.5 MG/3 ML] 3 ml NEB QID 01/21/19 18:00 Arformoterol [Brovana] 15 mcg INH BID Budesonide [Pulmicort] 0.5 mg INH BID Carvedilol [Coreg] 12.5 mg PO BID Docusate Sodium [Colace] 100 mg PO BID Furosemide [Lasix] 20 mg IVPUSH BID Gabapentin [Neurontin] 300 mg PO TID Insulin Aspart 8 unit SQ TID@0800,1200,1800 Magnesium Oxide [Magnesium] 400 mg PO BID Omeprazole 20 mg PO BID 01/21/19 20:00 Insulin Detemir [Levemir Flextouch] 20 units SUBCUT BEDTIME Polyvinyl Alcohol [LiquiTears 1.4% Ophth Soln] 1 ml EYEBOTH TID@0800,1200, 199901/21/19 Dinner [employer] Diet [DIET] 01/22/19 05:15 BASIC METABOLIC PANEL,BMP [CHEM] AM CBC WITH AUTO DIFF [HEME] AM 01/22/19 08:00 Allopurinol [Zyloprim] 300 mg PO QAM Isosorbide Mononitrate [Imdur] 60 mg PO DAILY Loratadine [Claritin] 10 mg PO DAILY Potassium Chloride [Potassium Chloride Solution] 20 meq PO DAILY Tamsulosin [Flomax] 0.4 mg PO DAILY methylPREDNISolone Sod Succ [Solu-MEDROL] 40 mg IVPUSH DAILY 01/22/19 09:00 Enoxaparin [Lovenox] 40 mg SUBCUT DAILY ONE Assessment:: as above Plan: as above. Anticipate 3-4 days of inpatient care given patient's complex medical issues and advanced lung disease.
[2019-01-21] MEDS: Albuterol/Ipratropium 3.0-0.5 MG/3 ML Neb Soln NEB SCH ×2 (16:36→19:47)
[2019-01-21] MEDS ORDERED: Insulin Lispro 100 Units/ML 3 ML Vial SUBCUT ONE ×3 (17:42→22:39)
[2019-01-21] MEDS: Budesonide 0.5 MG/2 ML Neb Susp INH SCH (17:50)
[2019-01-21] MEDS: Arformoterol 15 MCG/2 ML Neb Soln INH SCH (17:50)
[2019-01-21] MEDS: Furosemide 20 MG/2 ML VIAL IVPUSH SCH (17:50)
[2019-01-21] MEDS: Gabapentin 300 MG Cap PO SCH (17:51)
[2019-01-21] MEDS: Docusate Sodium 100 MG Cap PO SCH (17:51)
[2019-01-21] MEDS: Omeprazole 20 MG Cap.CR PO SCH (17:51)
[2019-01-21] MEDS: Magnesium Oxide 400 MG Tab PO SCH (17:52)
[2019-01-21] MEDS: Carvedilol 12.5 MG Tab PO SCH (17:53)
[2019-01-21] MEDS: Insulin Lispro 100 Units/ML 3 ML Vial SUBCUT SCH (17:55)
[2019-01-21] MEDS ORDERED: Insulin Lispro 100 Units/ML 3 ML Vial SUBCUT SCH (18:00)
[2019-01-21] MEDS: Polyvinyl Alcohol 1.4% Ophth Soln 15 ML Bottle EYEBOTH SCH (19:47)
[2019-01-21] MEDS: Insulin Glarg,Human.Rec.Analog 100 UNIT/ML ML SUBCUT SCH (19:48)
[2019-01-22] MEDS ORDERED: Insulin Lispro 100 Units/ML 3 ML Vial SUBCUT ONE ×2 (01:11→17:42)
[2019-01-22 07:45] LABS: CHLORIDE,CL 96 mmol/L (98-107); SODIUM,NA 136 mmol/L (136-145)
[2019-01-22] MEDS: Docusate Sodium 100 MG Cap PO SCH ×2 (08:04→17:14)
[2019-01-22] MEDS: Isosorbide Mononitrate 60 MG Tab.ER PO SCH (08:04)
[2019-01-22] MEDS: Carvedilol 12.5 MG Tab PO SCH ×2 (08:04→17:14)
[2019-01-22] MEDS: Loratadine 10 MG Tab PO SCH (08:04)
[2019-01-22] MEDS: Budesonide 0.5 MG/2 ML Neb Susp INH SCH ×2 (08:04→17:13)
[2019-01-22] MEDS: Allopurinol 100 MG Tab PO SCH (08:05)
[2019-01-22] MEDS: Tamsulosin 0.4 MG Cap.ER PO SCH (08:05)
[2019-01-22] MEDS: Omeprazole 20 MG Cap.CR PO SCH ×2 (08:05→17:14)
[2019-01-22] MEDS: Albuterol/Ipratropium 3.0-0.5 MG/3 ML Neb Soln NEB SCH ×4 (08:05→19:51)
[2019-01-22] MEDS: Gabapentin 300 MG Cap PO SCH ×3 (08:06→17:14)
[2019-01-22] MEDS: Enoxaparin 40 MG/0.4 ML Syringe SUBCUT SCH (08:06)
[2019-01-22] MEDS: Furosemide 20 MG/2 ML VIAL IVPUSH SCH ×2 (08:07→17:15)
[2019-01-22] MEDS: Polyvinyl Alcohol 1.4% Ophth Soln 15 ML Bottle EYEBOTH SCH ×3 (08:07→19:52)
[2019-01-22] MEDS: Magnesium Oxide 400 MG Tab PO SCH ×2 (08:07→17:15)
[2019-01-22] MEDS: methylPREDNISolone Sodium Succinate 40 MG/1 ML SDV IVPUSH SCH (08:09)
[2019-01-22] MEDS: Potassium Chloride 10% 20 MEQ/15 ML Soln 15 ML UD Cup PO SCH (08:10)
[2019-01-22] MEDS: Arformoterol 15 MCG/2 ML Neb Soln INH SCH ×2 (08:11→17:13)
[2019-01-22] MEDS: Insulin Lispro 100 Units/ML 3 ML Vial SUBCUT SCH ×3 (08:12→17:50)
[2019-01-22] MEDS: Sodium Chloride 0.9% 10 ML Syringe FLUSH PRN ×5 (08:19→17:15)
[2019-01-22] MEDS: Azithromycin 500 MG in Sodium Chloride 0.9% 250 ML IV SCH (11:22)
[2019-01-22] MEDS: cefTRIAXone 1 GM in Sodium Chloride 0.9% 100 ML IV SCH (12:48)
--- NOTE | 2019-01-22 13:37 | PCM.PN ---
- General Info Date of Service: 01/22/19 Admission Dx/Problem (Free Text): Admitted for treatment of increased shortness of breath. COPD exacerbation. Possible contributing respiratory tract infection. Subjective Update: Continues to feel increased shortness of breath/cough but reports that it has improved since admission yesterday. No new complaints. Functional Status: Reports: Pain Controlled, Tolerating Diet, Ambulating ( patiet needs assistance with transfers, is at baseline for mobility), Urinating , Incentive Spirometry. Denies: New Symptoms - Review of Systems General: Denies: Fever, Chills, Night Sweats HEENT: Denies: Ear Pain, Eye Pain, Headaches, Sore Throat, Rhinitis, Visual Changes Pulmonary: Reports: Shortness of Breath, Cough, Wheezing. Denies: Pleuritic Chest Pain, Hemoptysis Cardiovascular: Reports: Dyspnea on Exertion (chronic), Edema (chronic). Denies : Chest Pain, Palpitations, Lightheadedness Gastrointestinal: Denies: Abdominal Pain, Constipation, Diarrhea, Nausea, Vomiting Genitourinary: Reports: No Symptoms Musculoskeletal: Reports: No Symptoms (no acute changes from baseline) Skin: Reports: Bruising. Denies: Cyanosis, Jaundice Neurological: Reports: Difficulty Walking (chronic, unchanged). Denies: Confusion, Dizziness, Headache, Seizure, Syncope, Change in Speech Psychiatric: Reports: No Symptoms - Patient Data Vitals - Most Recent: Last Vital Signs Temp 36.3 C 01/22/19 08:00 Pulse 71 01/22/19 08:04 Resp 18 01/22/19 08:00 BP 135/76 01/22/19 08:04 Pulse Ox 91 L 01/22/19 08:00 Weight - Most Recent: 122.47 kg I&O - Last 24 Hours: Intake & Output 01/21/19 01/22/19 01/22/19 22:59 06:59 14:59 Intake Total 1030 1300 Output Total 400 Balance 630 1300 Lab Results Last 24 Hours: Laboratory Results - last 24 hr 01/21/19 01/21/19 01/21/19 Range/Units 12:02 12:19 16:46 WBC (4.0-10.2) K/uL RBC (4.33-5.41) M/uL Hgb (13.1-16.8) g/dL Hct (39.0-49.0) % MCV (84.0-98.0) fL MCH (28.2-33.3) pg MCHC (31.7-36.0) g/dL RDW (11.2-14.1) % Plt Count (150-350) K/uL Neut % (Auto) (45.0-80.0) % Lymph % (Auto) (10.0-50.0) % [place] % (Auto) (2.0-14.0) % Eos % (Auto) (0.0-5.0) % Baso % (Auto) (0.0-2.0) % Neut # (Auto) (1.40-7.00) K/uL Lymph # (Auto) (0.50-3.50) K/uL [place] # (Auto) (0.00-1.00) K/uL Eos # (Auto) (0.00-0.50) K/uL Baso # (Auto) (0.00-0.20) K/uL Sodium (136-145) mmol/L Potassium (3.5-5.1) mmol/L Chloride (98-107) mmol/L Carbon Dioxide (21.0-32.0) mmol/L BUN (7-18) mg/dL Creatinine (0.51-1.17) mg/dL Est Cr Clr Drug Dosing mL/min Estimated GFR (MDRD) mL/min Glucose (74-106) mg/dL POC Glucose 465 H* (65-110) mg/dl Lactic Acid 3.8 H (0.4-2.0) mmol/L Calcium (8.5-10.1) mg/dL Specimen Type Urinblad Urine Color Yellow Urine Appearance Clear Urine pH 6.5 (5.0-9.0) Ur Specific Ros[place] 1.010 (1.005-1.030) Urine Protein Negative (NEGATIVE) mg/dL Urine Glucose (UA) Negative (NEGATIVE) mg/dL Urine Ketones Negative (NEGATIVE) mg/dL Urine Occult Blood Negative (NEGATIVE) Urine Nitrite Negative (NEGATIVE) Urine Bilirubin Negative (NEGATIVE) Urine Urobilinogen 0.2 (0.2-1.0) E.U./dL Ur Leukocyte Esterase Small H (NEGATIVE) Urine RBC Not seen /HPF Urine WBC 10-20 H /HPF Ur Epithelial Cells Few /LPF Urine Bacteria Moderate H (NONE TO FEW) /HPF 01/21/19 01/21/19 01/22/19 Range/Units 19:41 22:33 01:09 WBC (4.0-10.2) K/uL RBC (4.33-5.41) M/uL Hgb (13.1-16.8) g/dL Hct (39.0-49.0) % MCV (84.0-98.0) fL MCH (28.2-33.3) pg MCHC (31.7-36.0) g/dL RDW (11.2-14.1) % Plt Count (150-350) K/uL Neut % (Auto) (45.0-80.0) % Lymph % (Auto) (10.0-50.0) % [place] % (Auto) (2.0-14.0) % Eos % (Auto) (0.0-5.0) % Baso % (Auto) (0.0-2.0) % Neut # (Auto) (1.40-7.00) K/uL Lymph # (Auto) (0.50-3.50) K/uL [place] # (Auto) (0.00-1.00) K/uL Eos # (Auto) (0.00-0.50) K/uL Baso # (Auto) (0.00-0.20) K/uL Sodium (136-145) mmol/L Potassium (3.5-5.1) mmol/L Chloride (98-107) mmol/L Carbon Dioxide (21.0-32.0) mmol/L BUN (7-18) mg/dL Creatinine (0.51-1.17) mg/dL Est Cr Clr Drug Dosing mL/min Estimated GFR (MDRD) mL/min Glucose (74-106) mg/dL POC Glucose > 500 H* 450 H* 365 H* (65-110) mg/dl Lactic Acid (0.4-2.0) mmol/L Calcium (8.5-10.1) mg/dL Specimen Type Urine Color Urine Appearance Urine pH (5.0-9.0) Ur Specific [place] (1.005-1.030) Urine Protein (NEGATIVE) mg/dL Urine Glucose (UA) (NEGATIVE) mg/dL Urine Ketones (NEGATIVE) mg/dL Urine Occult Blood (NEGATIVE) Urine Nitrite (NEGATIVE) Urine Bilirubin (NEGATIVE) Urine Urobilinogen (0.2-1.0) E.U./dL Ur Leukocyte Esterase (NEGATIVE) Urine RBC /HPF Urine WBC /HPF Ur Epithelial Cells /LPF Urine Bacteria (NONE TO FEW) /HPF 01/22/19 01/22/19 01/22/19 Range/Units 04:09 06:46 06:46 WBC 20.4 H (4.0-10.2) K/uL RBC 2.99 L (4.33-5.41) M/uL Hgb 10.8 L (13.1-16.8) g/dL Hct 32.4 L (39.0-49.0) % MCV 108.4 H (84.0-98.0) fL MCH 36.1 H (28.2-33.3) pg MCHC 33.3 (31.7-36.0) g/dL RDW 19.1 H (11.2-14.1) % Plt Count 162 (150-350) K/uL Neut % (Auto) 82.5 H (45.0-80.0) % Lymph % (Auto) 8.5 L (10.0-50.0) % [place] % (Auto) 8.9 (2.0-14.0) % Eos % (Auto) 0.0 (0.0-5.0) % Baso % (Auto) 0.1 (0.0-2.0) % Neut # (Auto) 16.79 H (1.40-7.00) K/uL Lymph # (Auto) 1.74 (0.50-3.50) K/uL [place] # (Auto) 1.81 H (0.00-1.00) K/uL Eos # (Auto) 0.01 (0.00-0.50) K/uL Baso # (Auto) 0.02 (0.00-0.20) K/uL Sodium 136 (136-145) mmol/L Potassium 4.2 (3.5-5.1) mmol/L Chloride 96 L (98-107) mmol/L Carbon Dioxide 31.0 (21.0-32.0) mmol/L BUN 34 H (7-18) mg/dL Creatinine 1.14 (0.51-1.17) mg/dL Est Cr Clr Drug Dosing 53.36 mL/min Estimated GFR (MDRD) > 60 mL/min Glucose 240 H (74-106) mg/dL POC Glucose 297 H* (65-110) mg/dl Lactic Acid (0.4-2.0) mmol/L Calcium 9.1 (8.5-10.1) mg/dL Specimen Type Urine Color Urine Appearance Urine pH (5.0-9.0) Ur Specific [place] (1.005-1.030) Urine Protein (NEGATIVE) mg/dL Urine Glucose (UA) (NEGATIVE) mg/dL Urine Ketones (NEGATIVE) mg/dL Urine Occult Blood (NEGATIVE) Urine Nitrite (NEGATIVE) Urine Bilirubin (NEGATIVE) Urine Urobilinogen (0.2-1.0) E.U./dL Ur Leukocyte Esterase (NEGATIVE) Urine RBC /HPF Urine WBC /HPF Ur Epithelial Cells /LPF Urine Bacteria (NONE TO FEW) /HPF 01/22/19 01/22/19 Range/Units 06:46 07:03 WBC (4.0-10.2) K/uL RBC (4.33-5.41) M/uL Hgb (13.1-16.8) g/dL Hct (39.0-49.0) % MCV (84.0-98.0) fL MCH (28.2-33.3) pg MCHC (31.7-36.0) g/dL RDW (11.2-14.1) % Plt Count (150-350) K/uL Neut % (Auto) (45.0-80.0) % Lymph % (Auto) (10.0-50.0) % [place] % (Auto) (2.0-14.0) % Eos % (Auto) (0.0-5.0) % Baso % (Auto) (0.0-2.0) % Neut # (Auto) (1.40-7.00) K/uL Lymph # (Auto) (0.50-3.50) K/uL [place] # (Auto) (0.00-1.00) K/uL Eos # (Auto) (0.00-0.50) K/uL Baso # (Auto) (0.00-0.20) K/uL Sodium (136-145) mmol/L Potassium (3.5-5.1) mmol/L Chloride (98-107) mmol/L Carbon Dioxide (21.0-32.0) mmol/L BUN (7-18) mg/dL Creatinine (0.51-1.17) mg/dL Est Cr Clr Drug Dosing mL/min Estimated GFR (MDRD) mL/min Glucose (74-106) mg/dL POC Glucose 242 H (65-110) mg/dl Lactic Acid 2.5 H (0.4-2.0) mmol/L Calcium (8.5-10.1) mg/dL Specimen Type Urine Color Urine Appearance Urine pH (5.0-9.0) Ur Specific [place] (1.005-1.030) Urine Protein (NEGATIVE) mg/dL Urine Glucose (UA) (NEGATIVE) mg/dL Urine Ketones (NEGATIVE) mg/dL Urine Occult Blood (NEGATIVE) Urine Nitrite (NEGATIVE) Urine Bilirubin (NEGATIVE) Urine Urobilinogen (0.2-1.0) E.U./dL Ur Leukocyte Esterase (NEGATIVE) Urine RBC /HPF Urine WBC /HPF Ur Epithelial Cells /LPF Urine Bacteria (NONE TO FEW) /HPF Murali Results Last 24 Hours: Microbiology 01/21/19 12:02 Aerobic Blood Culture - Preliminary Blood - Venous - Lab Draw NO GROWTH AFTER 1 DAY Anaerobic Blood Culture - Preliminary NO GROWTH AFTER 1 DAY 01/21/19 11:45 Aerobic Blood Culture - Preliminary Blood - Venous NO GROWTH AFTER 1 DAY Anaerobic Blood Culture - Preliminary NO GROWTH AFTER 1 DAY Med Orders - Current: Current Medications Acetaminophen (Tylenol) 650 mg PO Q4H PRN PRN Reason: Pain Albuterol/Ipratropium (Duoneb 3.0-0.5 Mg/3 Ml) 3 ml NEB QID [facility] Last Admin: 01/22/19 11:23 Dose: 3 ml Allopurinol (Zyloprim) 300 mg PO QAM [facility] Last Admin: 01/22/19 08:05 Dose: 300 mg Arformoterol Tartrate (Brovana) 15 mcg INH BID [facility] Last Admin: 01/22/19 08:11 Dose: 15 mcg Artificial Tears (Liquitears 1.4% Ophth Soln) 0 ml EYEBOTH TID@0800,1200,2000 [facility] Last Admin: 01/22/19 11:23 Dose: 1 drop Budesonide (Pulmicort) 0.5 mg INH BID [facility] Last Admin: 01/22/19 08:04 Dose: 0.5 mg Carvedilol (Coreg) 12.5 mg PO BID [facility] Last Admin: 01/22/19 08:04 Dose: 12.5 mg Docusate Sodium (Colace) 100 mg PO BID [facility] Last Admin: 01/22/19 08:04 Dose: 100 mg Enoxaparin Sodium (Lovenox) 40 mg SUBCUT DAILY [facility] Last Admin: 01/22/19 08:06 Dose: 40 mg Furosemide (Lasix) 20 mg IVPUSH BID [facility] Last Admin: 01/22/19 08:07 Dose: 20 mg Gabapentin (Neurontin) 300 mg PO TID [facility] Last Admin: 01/22/19 11:22 Dose: 300 mg Hydrocortisone (Proctozone-Hc 2.5% Crm) 0 gm TOP BID PRN PRN Reason: Hemorrhoids Azithromycin 500 mg/ Sodium (Chloride) 250 mls @ 250 mls/hr IV Q24H [facility] Last Admin: 01/22/19 11:22 Dose: 250 mls/hr Ceftriaxone Sodium 1 gm/ (Sodium Chloride) 100 mls @ 200 mls/hr IV Q24H [facility] Last Admin: 01/22/19 12:48 Dose: 200 mls/hr Insulin Glargine (Lantus) 20 unit SUBCUT BEDTIME [facility] Last Admin: 01/21/19 19:48 Dose: 20 units Insulin Human Lispro (Humalog) 0 unit SUBCUT TID@0800,1200,1800 [facility]; Protocol Last Admin: 01/22/19 11:23 Dose: 9 units Isosorbide Mononitrate (Imdur) 60 mg PO DAILY [facility] Last Admin: 01/22/19 08:04 Dose: 60 mg Loratadine (Claritin) 10 mg PO DAILY [facility] Last Admin: 01/22/19 08:04 Dose: 10 mg Magnesium Oxide (Magnesium Oxide) 400 mg PO BID [facility] Last Admin: 01/22/19 08:07 Dose: 400 mg Methylprednisolone Sodium Succinate (Solu-Medrol) 40 mg IVPUSH DAILY [facility] Last Admin: 01/22/19 08:09 Dose: 40 mg Omeprazole (Omeprazole) 20 mg PO BID [facility] Last Admin: 01/22/19 08:05 Dose: 20 mg Potassium Chloride (Potassium Chloride Solution) 20 meq PO DAILY [facility] Last Admin: 01/22/19 08:10 Dose: 20 meq Sodium Chloride (Saline Flush) 10 ml FLUSH ASDIRECTED PRN PRN Reason: Keep Vein Open Last Admin: 01/22/19 13:23 Dose: 10 ml Tamsulosin HCl (Flomax) 0.4 mg PO DAILY [facility] Last Admin: 01/22/19 08:05 Dose: 0.4 mg Discontinued Medications Albuterol/Ipratropium (Duoneb 3.0-0.5 Mg/3 Ml) 3 ml NEB ONETIME ONE Stop: 01/21/19 11:42 Last Admin: 01/21/19 11:59 Dose: 3 ml Furosemide (Lasix) 40 mg IVPUSH NOW ONE Stop: 01/21/19 11:42 Last Admin: 01/21/19 11:59 Dose: 40 mg Azithromycin 500 mg/ Sodium (Chloride) 250 mls @ 250 mls/hr IV Q24H [facility] Last Admin: 01/21/19 12:58 Dose: 250 mls/hr Ceftriaxone Sodium 1 gm/ (Sodium Chloride) 100 mls @ 200 mls/hr IV Q24H [facility] Last Admin: 01/21/19 12:58 Dose: 200 mls/hr Insulin Human Lispro (Humalog) 8 unit SUBCUT TID@0800,1200,1800 [facility] Insulin Human Lispro (Humalog) 18 unit SUBCUT ONETIME ONE Stop: 01/22/19 17:43 Insulin Human Lispro (Humalog) 18 unit SUBCUT ONETIME ONE Stop: 01/21/19 17:43 Last Admin: 01/21/19 18:24 Dose: 18 unit Insulin Human Lispro (Humalog) 15 unit SUBCUT ONETIME ONE Stop: 01/21/19 19:48 Last Admin: 01/21/19 20:07 Dose: 15 units Insulin Human Lispro (Humalog) 15 unit SUBCUT BIDAC ONE Stop: 01/21/19 22:40 Last Admin: 01/21/19 22:56 Dose: 15 units Insulin Human Lispro (Humalog) 0 unit SUBCUT ONETIME ONE Stop: 01/22/19 01:12 Last Admin: 01/22/19 01:27 Dose: 15 units Iopamidol (Isovue-370 (76%)) 100 ml IVPUSH ONETIME ONE Stop: 01/21/19 13:51 Last Admin: 01/21/19 14:36 Dose: 100 ml Methylprednisolone Sodium Succinate (Solu-Medrol) 125 mg IVPUSH ONETIME ONE Stop: 01/21/19 11:43 Last Admin: 01/21/19 11:59 Dose: 125 mg - Exam Quality Assessment: Supplemental Oxygen, DVT Prophylaxis General: Alert, Oriented, Cooperative, No Acute Distress HEENT: Pupils Equal, Pupils Reactive, EOMI, Mucous Membr. Moist/[place] Neck: Supple Lungs: Rhonchi (bilaterally), Wheezing (mild, bilateral), Other (mild increase effort/abdominal breathing). No: Rub, Stridor Cardiovascular: Regular Rhythm, No Murmurs GI/Abdominal Exam: Normal Bowel Sounds, Soft, Non-Tender, No Distention (Male) Exam: Deferred Back Exam: No: CVA Tenderness (L), CVA Tenderness (R), Muscle Spasm, Paraspinal Tenderness, Vertebral Tenderness Extremities: Non-Tender, Pedal Edema (bilateral). No: Gumaro's Sign, Leg Pain Skin: Warm, Dry, Ecchymosis (some bruising around forearms/hands) Neurological: No New Focal Deficit Psy/Mental Status: Alert, Normal Affect, Normal Mood - Problem List & Annotations (1) COPD (chronic obstructive pulmonary disease) SNOMED Code(s): 42985611 Code(s): J44.9 - CHRONIC OBSTRUCTIVE PULMONARY DISEASE, UNSPECIFIED Status : Chronic Priority: High Current Visit: Yes Qualifiers: COPD type: COPD with acute exacerbation Qualified Code(s): J44.1 - Chronic obstructive pulmonary disease with (acute) exacerbation Annotation/Comment:: Acute exacerbation of COPD. Continue supportive treatment with nebs/solumedrol/supplemental O2. Receiving antibiotics for possible respiratory tract infection. (2) Pneumonia SNOMED Code(s): 934688485 Code(s): J18.9 - PNEUMONIA, UNSPECIFIED ORGANISM Status: Acute Priority: High Current Visit: Yes Annotation/Comment:: Possible infiltrate noted on CT in lower lungs where atelactasis noted. Patient receiving Rocephin and Zithromax coverage. WBC elevated. Blood cultures pending. Temp of 99 noted at [place] prior to transfer. No acute cough or URI complaints. (3) Leukocytosis SNOMED Code(s): 588711312, 349217028 Code(s): D72.829 - ELEVATED WHITE BLOOD CELL COUNT, UNSPECIFIED Status: Chronic Priority: Medium Current Visit: Yes Qualifiers: Leukocytosis type: unspecified Qualified Code(s): D72.829 - Elevated white blood cell count, unspecified Annotation/Comment:: Patient has been running chronic elevated WBCs in general over the past few years when checked. Is on chronic steroids which may be affecting levels. Improved from 27,000 to 20,000 today (4) Comfort measures only status SNOMED Code(s): 93655879653415 Code(s): Z51.5 - ENCOUNTER FOR PALLIATIVE CARE Status: Chronic Priority: Medium Current Visit: No (5) CHF, Congestive heart failure SNOMED Code(s): 51969156 Code(s): I50.9 - HEART FAILURE, UNSPECIFIED Status: Chronic Priority: High Current Visit: No Annotation/Comment:: Continue on Lasix, echocardiogram done 01/2018 showed EF 55-60% with grade II diastolic dysfunction (6) HTN, Benign hypertension SNOMED Code(s): 58656032 Code(s): I10 - ESSENTIAL (PRIMARY) HYPERTENSION Status: Chronic Priority : Medium Current Visit: No Annotation/Comment:: observe trends (7) Osteoarthritis SNOMED Code(s): 579058764 Code(s): M19.90 - UNSPECIFIED OSTEOARTHRITIS, UNSPECIFIED SITE Status: Chronic Priority: Medium Current Visit: No Annotation/Comment:: currently stable (8) Anemia SNOMED Code(s): 554760045 Code(s): D64.9 - ANEMIA, UNSPECIFIED Status: Chronic Priority: Low Current Visit: Yes Qualifiers: Anemia type: other cause Annotation/Comment:: chronic (9) Chronic respiratory failure with hypoxia SNOMED Code(s): 742444665 Code(s): J96.11 - CHRONIC RESPIRATORY FAILURE WITH HYPOXIA Status: Chronic Priority: Medium Current Visit: Yes (10) Chronic kidney disease (CKD) SNOMED Code(s): 227712874 Code(s): N18.9 - CHRONIC KIDNEY DISEASE, UNSPECIFIED Status: Chronic Priority: Low Current Visit: No Qualifiers: Chronic kidney disease stage: unspecified stage Qualified Code(s): N18.9 - Chronic kidney disease, unspecified Annotation/Comment:: stable (11) Elevated d-dimer SNOMED Code(s): 611069070 Code(s): R79.89 - OTHER SPECIFIED ABNORMAL FINDINGS OF BLOOD CHEMISTRY Status: Chronic Priority: Medium Current Visit: Yes Annotation/Comment:: Patient has chronic elevation of DDimer on chart review. Negative PE study performed today. - Problem List Review Problem List Initiated/Reviewed/Updated: Yes - My Orders Last 24 Hours: My Active Orders 01/21/19 12:45 PE Chest [Ang Chest] [CT] Stat 01/21/19 15:40 Patient Status [ADT] Routine Blood Glucose Check, Bedside [RC] QIDACANDBED Oxygen Therapy [RC] 2300 Up With Assistance [RC] ASDIRECTED VTE/DVT Education [RC] PER UNIT ROUTINE Vital Signs [RC] Q4HR Resuscitation Status Routine 01/21/19 15:42 Intake and Output [RC] QSHIFT Pulse Oximetry [RC] PRN 01/21/19 15:44 Acetaminophen [Tylenol] 650 mg PO Q4H PRN Hydrocortisone [Proctozone-HC 2.5% Crm] 0 gm TOP BID PRN 01/21/19 16:00 Albuterol/Ipratropium [DuoNeb 3.0-0.5 MG/3 ML] 3 ml NEB QID 01/21/19 18:00 Arformoterol [Brovana] 15 mcg INH BID Budesonide [Pulmicort] 0.5 mg INH BID Carvedilol [Coreg] 12.5 mg PO BID Docusate Sodium [Colace] 100 mg PO BID Furosemide [Lasix] 20 mg IVPUSH BID Gabapentin [Neurontin] 300 mg PO TID Insulin Lispro [HumaLOG] See Protocol SUBCUT TID@0800,1200,1800 Magnesium Oxide 400 mg PO BID Omeprazole 20 mg PO BID 01/21/19 20:00 Insulin Glarg,Human.Rec.Analog [LantUS] 20 unit SUBCUT BEDTIME Polyvinyl Alcohol [LiquiTears 1.4% Ophth Soln] 0 ml EYEBOTH TID@0800,1200, 199901/21/19 Dinner [place] [employer] Diet [DIET] 01/22/19 00:10 Accu Check [Blood Glucose Check, Bedside] [RC] ONETIME 01/22/19 04:00 Accu Check [Blood Glucose Check, Bedside] [RC] ONETIME 01/22/19 08:00 Allopurinol [Zyloprim] 300 mg PO QAM Enoxaparin [Lovenox] 40 mg SUBCUT DAILY Isosorbide Mononitrate [Imdur] 60 mg PO DAILY Loratadine [Claritin] 10 mg PO DAILY Potassium Chloride [Potassium Chloride Solution] 20 meq PO DAILY Tamsulosin [Flomax] 0.4 mg PO DAILY methylPREDNISolone Sod Succ [Solu-MEDROL] 40 mg IVPUSH DAILY 01/22/19 12:00 Azithromycin [Zithromax] 500 mg Sodium Chloride 0.9% [Normal Saline] 250 ml IV Q24H 01/22/19 13:00 cefTRIAXone [Rocephin] 1 gm Sodium Chloride 0.9% [Normal Saline] 100 ml IV Q24H - Assessment Assessment:: as above - Plan Plan:: as above. Anticipate 2-3 additional days of inpatient care secondary to multiple chronic conditions as listed above.
[2019-01-22] MEDS: Insulin Glarg,Human.Rec.Analog 100 UNIT/ML ML SUBCUT SCH (19:52)
[2019-01-23] MEDS: Arformoterol 15 MCG/2 ML Neb Soln INH SCH ×2 (07:57→17:23)
[2019-01-23] MEDS: Budesonide 0.5 MG/2 ML Neb Susp INH SCH ×2 (07:58→17:23)
[2019-01-23] MEDS: Albuterol/Ipratropium 3.0-0.5 MG/3 ML Neb Soln NEB SCH ×4 (07:58→20:26)
[2019-01-23] MEDS: Enoxaparin 40 MG/0.4 ML Syringe SUBCUT SCH (07:58)
[2019-01-23] MEDS: Potassium Chloride 10% 20 MEQ/15 ML Soln 15 ML UD Cup PO SCH (07:58)
[2019-01-23] MEDS: Polyvinyl Alcohol 1.4% Ophth Soln 15 ML Bottle EYEBOTH SCH ×3 (07:58→20:26)
[2019-01-23] MEDS: Isosorbide Mononitrate 60 MG Tab.ER PO SCH (07:59)
[2019-01-23] MEDS: Carvedilol 12.5 MG Tab PO SCH ×2 (07:59→17:21)
[2019-01-23] MEDS: Loratadine 10 MG Tab PO SCH (07:59)
[2019-01-23] MEDS: Omeprazole 20 MG Cap.CR PO SCH ×2 (08:00→17:21)
[2019-01-23] MEDS: Tamsulosin 0.4 MG Cap.ER PO SCH (08:00)
[2019-01-23] MEDS: Docusate Sodium 100 MG Cap PO SCH ×2 (08:00→17:21)
[2019-01-23] MEDS: Gabapentin 300 MG Cap PO SCH ×3 (08:00→17:22)
[2019-01-23] MEDS: Allopurinol 100 MG Tab PO SCH (08:00)
[2019-01-23] MEDS: methylPREDNISolone Sodium Succinate 40 MG/1 ML SDV IVPUSH SCH (08:01)
[2019-01-23] MEDS: Magnesium Oxide 400 MG Tab PO SCH ×2 (08:01→17:22)
[2019-01-23] MEDS: Furosemide 20 MG/2 ML VIAL IVPUSH SCH ×2 (08:01→17:23)
[2019-01-23] MEDS: Sodium Chloride 0.9% 10 ML Syringe FLUSH PRN ×6 (08:02→17:23)
[2019-01-23] MEDS: Insulin Lispro 100 Units/ML 3 ML Vial SUBCUT SCH ×3 (08:02→17:23)
[2019-01-23 08:07] LABS: CHLORIDE,CL 96 mmol/L (98-107); SODIUM,NA 136 mmol/L (136-145)
[2019-01-23] MEDS: Azithromycin 500 MG in Sodium Chloride 0.9% 250 ML IV SCH (11:50)
[2019-01-23] MEDS: cefTRIAXone 1 GM in Sodium Chloride 0.9% 100 ML IV SCH (12:58)
--- NOTE | 2019-01-23 15:35 | PCM.PN ---
- General Info Date of Service: 01/23/19 Admission Dx/Problem (Free Text): Admitted for treatment of increased shortness of breath. COPD exacerbation. Possible contributing respiratory tract infection. Subjective Update: Continues to feel increased shortness of breath/cough but reports that it has improved since admission yesterday. No new complaints. Functional Status: Reports: Pain Controlled, Tolerating Diet - Review of Systems General: Reports: Weakness HEENT: Reports: No Symptoms Pulmonary: Reports: Pleuritic Chest Pain, Cough Cardiovascular: Reports: No Symptoms Gastrointestinal: Reports: No Symptoms Genitourinary: Reports: No Symptoms Musculoskeletal: Reports: No Symptoms Skin: Reports: No Symptoms Neurological: Reports: No Symptoms Psychiatric: Reports: No Symptoms - Patient Data Vitals - Most Recent: Last Vital Signs Temp 97.2 F 01/23/19 11:13 Pulse 75 01/23/19 11:13 Resp 18 01/23/19 11:13 BP 118/60 01/23/19 11:13 Pulse Ox 96 01/23/19 11:13 Weight - Most Recent: 270 lb I&O - Last 24 Hours: Intake & Output 01/23/19 01/23/19 01/23/19 06:59 14:59 22:59 Intake Total 250 1190 Output Total 1025 Balance -775 1190 Lab Results Last 24 Hours: Laboratory Results - last 24 hr 01/22/19 01/22/19 01/23/19 Range/Units 17:10 20:30 06:53 WBC (4.0-10.2) K/uL RBC (4.33-5.41) M/uL Hgb (13.1-16.8) g/dL Hct (39.0-49.0) % MCV (84.0-98.0) fL MCH (28.2-33.3) pg MCHC (31.7-36.0) g/dL RDW (11.2-14.1) % Plt Count (150-350) K/uL Neut % (Auto) (45.0-80.0) % Lymph % (Auto) (10.0-50.0) % Redwood % (Auto) (2.0-14.0) % Eos % (Auto) (0.0-5.0) % Baso % (Auto) (0.0-2.0) % Neut # (Auto) (1.40-7.00) K/uL Lymph # (Auto) (0.50-3.50) K/uL Redwood # (Auto) (0.00-1.00) K/uL Eos # (Auto) (0.00-0.50) K/uL Baso # (Auto) (0.00-0.20) K/uL Sodium (136-145) mmol/L Potassium (3.5-5.1) mmol/L Chloride (98-107) mmol/L Carbon Dioxide (21.0-32.0) mmol/L BUN (7-18) mg/dL Creatinine (0.51-1.17) mg/dL Est Cr Clr Drug Dosing mL/min Estimated GFR (MDRD) mL/min Glucose (74-106) mg/dL POC Glucose 403 H* 334 H* (65-110) mg/dl Lactic Acid 3.4 H (0.4-2.0) mmol/L Calcium (8.5-10.1) mg/dL 01/23/19 01/23/19 01/23/19 Range/Units 06:53 06:53 06:59 WBC 14.8 H (4.0-10.2) K/uL RBC 3.07 L (4.33-5.41) M/uL Hgb 11.0 L (13.1-16.8) g/dL Hct 33.3 L (39.0-49.0) % MCV 108.5 H (84.0-98.0) fL MCH 35.8 H (28.2-33.3) pg MCHC 33.0 (31.7-36.0) g/dL RDW 18.7 H (11.2-14.1) % Plt Count 174 (150-350) K/uL Neut % (Auto) 79.1 (45.0-80.0) % Lymph % (Auto) 12.2 (10.0-50.0) % Redwood % (Auto) 8.1 (2.0-14.0) % Eos % (Auto) 0.5 (0.0-5.0) % Baso % (Auto) 0.1 (0.0-2.0) % Neut # (Auto) 11.72 H (1.40-7.00) K/uL Lymph # (Auto) 1.81 (0.50-3.50) K/uL Redwood # (Auto) 1.20 H (0.00-1.00) K/uL Eos # (Auto) 0.07 (0.00-0.50) K/uL Baso # (Auto) 0.01 (0.00-0.20) K/uL Sodium 136 (136-145) mmol/L Potassium 4.1 (3.5-5.1) mmol/L Chloride 96 L (98-107) mmol/L Carbon Dioxide 30.6 (21.0-32.0) mmol/L BUN 37 H (7-18) mg/dL Creatinine 1.09 (0.51-1.17) mg/dL Est Cr Clr Drug Dosing 55.81 mL/min Estimated GFR (MDRD) > 60 mL/min Glucose 242 H (74-106) mg/dL POC Glucose 232 H (65-110) mg/dl Lactic Acid (0.4-2.0) mmol/L Calcium 9.3 (8.5-10.1) mg/dL 01/23/19 Range/Units 11:04 WBC (4.0-10.2) K/uL RBC (4.33-5.41) M/uL Hgb (13.1-16.8) g/dL Hct (39.0-49.0) % MCV (84.0-98.0) fL MCH (28.2-33.3) pg MCHC (31.7-36.0) g/dL RDW (11.2-14.1) % Plt Count (150-350) K/uL Neut % (Auto) (45.0-80.0) % Lymph % (Auto) (10.0-50.0) % Redwood % (Auto) (2.0-14.0) % Eos % (Auto) (0.0-5.0) % Baso % (Auto) (0.0-2.0) % Neut # (Auto) (1.40-7.00) K/uL Lymph # (Auto) (0.50-3.50) K/uL Redwood # (Auto) (0.00-1.00) K/uL Eos # (Auto) (0.00-0.50) K/uL Baso # (Auto) (0.00-0.20) K/uL Sodium (136-145) mmol/L Potassium (3.5-5.1) mmol/L Chloride (98-107) mmol/L Carbon Dioxide (21.0-32.0) mmol/L BUN (7-18) mg/dL Creatinine (0.51-1.17) mg/dL Est Cr Clr Drug Dosing mL/min Estimated GFR (MDRD) mL/min Glucose (74-106) mg/dL POC Glucose 279 H* (65-110) mg/dl Lactic Acid (0.4-2.0) mmol/L Calcium (8.5-10.1) mg/dL [facility] Results Last 24 Hours: Microbiology 01/21/19 12:02 Aerobic Blood Culture - Preliminary Blood - Venous - Lab Draw NO GROWTH AFTER 2 DAYS Anaerobic Blood Culture - Preliminary NO GROWTH AFTER 2 DAYS 01/21/19 11:45 Aerobic Blood Culture - Preliminary Blood - Venous NO GROWTH AFTER 2 DAYS Anaerobic Blood Culture - Preliminary NO GROWTH AFTER 2 DAYS Med Orders - Current: Current Medications Acetaminophen (Tylenol) 650 mg PO Q4H PRN PRN Reason: Pain Albuterol/Ipratropium (Duoneb 3.0-0.5 Mg/3 Ml) 3 ml NEB QID [facility] Last Admin: 01/23/19 11:50 Dose: 3 ml Allopurinol (Zyloprim) 300 mg PO QAM [facility] Last Admin: 01/23/19 08:00 Dose: 300 mg Arformoterol Tartrate (Brovana) 15 mcg INH BID [facility] Last Admin: 01/23/19 07:57 Dose: 15 mcg Artificial Tears (Liquitears 1.4% Ophth Soln) 0 ml EYEBOTH TID@0800,1200,2000 [facility] Last Admin: 01/23/19 11:50 Dose: 1 drop Budesonide (Pulmicort) 0.5 mg INH BID [facility] Last Admin: 01/23/19 07:58 Dose: 0.5 mg Carvedilol (Coreg) 12.5 mg PO BID [facility] Last Admin: 01/23/19 07:59 Dose: 12.5 mg Docusate Sodium (Colace) 100 mg PO BID [facility] Last Admin: 01/23/19 08:00 Dose: 100 mg Enoxaparin Sodium (Lovenox) 40 mg SUBCUT DAILY [facility] Last Admin: 01/23/19 07:58 Dose: 40 mg Furosemide (Lasix) 20 mg IVPUSH BID [facility] Last Admin: 01/23/19 08:01 Dose: 20 mg Gabapentin (Neurontin) 300 mg PO TID [facility] Last Admin: 01/23/19 11:50 Dose: 300 mg Hydrocortisone (Proctozone-Hc 2.5% Crm) 0 gm TOP BID PRN PRN Reason: Hemorrhoids Last Admin: 01/22/19 20:28 Dose: 1 applic Azithromycin 500 mg/ Sodium (Chloride) 250 mls @ 250 mls/hr IV Q24H [facility] Last Admin: 01/23/19 11:50 Dose: 250 mls/hr Ceftriaxone Sodium 1 gm/ (Sodium Chloride) 100 mls @ 200 mls/hr IV Q24H [facility] Last Admin: 01/23/19 12:58 Dose: 200 mls/hr Insulin Glargine (Lantus) 20 unit SUBCUT BEDTIME [facility] Last Admin: 01/22/19 19:52 Dose: 20 units Insulin Human Lispro (Humalog) 0 unit SUBCUT TID@0800,1200,1800 [facility]; Protocol Last Admin: 01/23/19 11:50 Dose: 9 units Isosorbide Mononitrate (Imdur) 60 mg PO DAILY [facility] Last Admin: 01/23/19 07:59 Dose: 60 mg Loratadine (Claritin) 10 mg PO DAILY [facility] Last Admin: 01/23/19 07:59 Dose: 10 mg Magnesium Oxide (Magnesium Oxide) 400 mg PO BID [facility] Last Admin: 01/23/19 08:01 Dose: 400 mg Methylprednisolone Sodium Succinate (Solu-Medrol) 40 mg IVPUSH DAILY [facility] Last Admin: 01/23/19 08:01 Dose: 40 mg Omeprazole (Omeprazole) 20 mg PO BID [facility] Last Admin: 01/23/19 08:00 Dose: 20 mg Potassium Chloride (Potassium Chloride Solution) 20 meq PO DAILY [facility] Last Admin: 01/23/19 07:58 Dose: 20 meq Sodium Chloride (Saline Flush) 10 ml FLUSH ASDIRECTED PRN PRN Reason: Keep Vein Open Last Admin: 01/23/19 13:03 Dose: 10 ml Tamsulosin HCl (Flomax) 0.4 mg PO DAILY [facility] Last Admin: 01/23/19 08:00 Dose: 0.4 mg Discontinued Medications Albuterol/Ipratropium (Duoneb 3.0-0.5 Mg/3 Ml) 3 ml NEB ONETIME ONE Stop: 01/21/19 11:42 Last Admin: 01/21/19 11:59 Dose: 3 ml Furosemide (Lasix) 40 mg IVPUSH NOW ONE Stop: 01/21/19 11:42 Last Admin: 01/21/19 11:59 Dose: 40 mg Azithromycin 500 mg/ Sodium (Chloride) 250 mls @ 250 mls/hr IV Q24H [facility] Last Admin: 01/21/19 12:58 Dose: 250 mls/hr Ceftriaxone Sodium 1 gm/ (Sodium Chloride) 100 mls @ 200 mls/hr IV Q24H [facility] Last Admin: 01/21/19 12:58 Dose: 200 mls/hr Insulin Human Lispro (Humalog) 8 unit SUBCUT TID@0800,1200,1800 [facility] Insulin Human Lispro (Humalog) 18 unit SUBCUT ONETIME ONE Stop: 01/22/19 17:43 Insulin Human Lispro (Humalog) 18 unit SUBCUT ONETIME ONE Stop: 01/21/19 17:43 Last Admin: 01/21/19 18:24 Dose: 18 unit Insulin Human Lispro (Humalog) 15 unit SUBCUT ONETIME ONE Stop: 01/21/19 19:48 Last Admin: 01/21/19 20:07 Dose: 15 units Insulin Human Lispro (Humalog) 15 unit SUBCUT BIDAC ONE Stop: 01/21/19 22:40 Last Admin: 01/21/19 22:56 Dose: 15 units Insulin Human Lispro (Humalog) 0 unit SUBCUT ONETIME ONE Stop: 01/22/19 01:12 Last Admin: 01/22/19 01:27 Dose: 15 units Iopamidol (Isovue-370 (76%)) 100 ml IVPUSH ONETIME ONE Stop: 01/21/19 13:51 Last Admin: 01/21/19 14:36 Dose: 100 ml Methylprednisolone Sodium Succinate (Solu-Medrol) 125 mg IVPUSH ONETIME ONE Stop: 01/21/19 11:43 Last Admin: 01/21/19 11:59 Dose: 125 mg - Exam Quality Assessment: Supplemental Oxygen, DVT Prophylaxis, Skin Breakdown General: Alert, Oriented, Cooperative HEENT: Pupils Equal Neck: Supple, Trachea Midline, No JVD Lungs: Normal Respiratory Effort, Decreased Breath Sounds, Crackles (crackles to bilat bases) Cardiovascular: Regular Rate, Regular Rhythm, Murmurs GI/Abdominal Exam: Normal Bowel Sounds, Soft, Non-Tender, No Organomegaly, No Distention Extremities: Normal Inspection, Normal Range of Motion, Non-Tender, Pedal Edema Peripheral Pulses: 1+: Dorsalis Pedis (L), Dorsalis Pedis (R) Skin: Warm, Dry, Intact Neurological: No New Focal Deficit Psy/Mental Status: Alert, Normal Affect, Normal Mood - Problem List Review Problem List Initiated/Reviewed/Updated: Yes - Assessment Assessment:: as above - Plan Plan:: as above. Anticipate 2-3 additional days of inpatient care secondary to multiple chronic conditions as listed above. 01/23/2019 Patient feels better, but still with cough. Patient states his legs are still weak. Labs noted, WBC continues to be elevated. Patient continues to need IV antibiotics due to his recurrent pneumonia and hospitalizations. Patient has appointment with specialist next week in regards to his repeat infections. Recheck labs in the morning. Astrid Damon,GEOTECHNICAL LABORATORY TECHNICIAN
[2019-01-23] MEDS: Insulin Glarg,Human.Rec.Analog 100 UNIT/ML ML SUBCUT SCH (20:26)
[2019-01-24 07:17] LABS: CHLORIDE,CL 99 mmol/L (98-107); SODIUM,NA 137 mmol/L (136-145)
[2019-01-24] MEDS: Albuterol/Ipratropium 3.0-0.5 MG/3 ML Neb Soln NEB SCH ×4 (08:28→19:08)
[2019-01-24] MEDS: methylPREDNISolone Sodium Succinate 40 MG/1 ML SDV IVPUSH SCH (08:28)
[2019-01-24] MEDS: Potassium Chloride 10% 20 MEQ/15 ML Soln 15 ML UD Cup PO SCH (08:28)
[2019-01-24] MEDS: Furosemide 20 MG/2 ML VIAL IVPUSH SCH ×2 (08:28→17:41)
[2019-01-24] MEDS: Insulin Lispro 100 Units/ML 3 ML Vial SUBCUT SCH ×3 (08:29→17:39)
[2019-01-24] MEDS: Polyvinyl Alcohol 1.4% Ophth Soln 15 ML Bottle EYEBOTH SCH ×3 (08:29→19:08)
[2019-01-24] MEDS: Arformoterol 15 MCG/2 ML Neb Soln INH SCH ×2 (08:29→17:41)
[2019-01-24] MEDS: Gabapentin 300 MG Cap PO SCH ×3 (08:31→17:42)
[2019-01-24] MEDS: Allopurinol 100 MG Tab PO SCH (08:31)
[2019-01-24] MEDS: Sodium Chloride 0.9% 10 ML Syringe FLUSH PRN ×4 (08:31→17:40)
[2019-01-24] MEDS: Omeprazole 20 MG Cap.CR PO SCH ×2 (08:31→17:41)
[2019-01-24] MEDS: Tamsulosin 0.4 MG Cap.ER PO SCH (08:31)
[2019-01-24] MEDS: Magnesium Oxide 400 MG Tab PO SCH ×2 (08:32→17:41)
[2019-01-24] MEDS: Isosorbide Mononitrate 60 MG Tab.ER PO SCH (08:32)
[2019-01-24] MEDS: Docusate Sodium 100 MG Cap PO SCH ×2 (08:32→17:42)
[2019-01-24] MEDS: Loratadine 10 MG Tab PO SCH (08:32)
[2019-01-24] MEDS: Carvedilol 12.5 MG Tab PO SCH ×2 (08:33→17:41)
[2019-01-24] MEDS: Enoxaparin 40 MG/0.4 ML Syringe SUBCUT SCH (08:33)
[2019-01-24] MEDS: Budesonide 0.5 MG/2 ML Neb Susp INH SCH ×2 (08:55→17:41)
[2019-01-24] MEDS: Azithromycin 500 MG in Sodium Chloride 0.9% 250 ML IV SCH (11:59)
[2019-01-24] MEDS: cefTRIAXone 1 GM in Sodium Chloride 0.9% 100 ML IV SCH (13:32)
[2019-01-24] MEDS: Insulin Glarg,Human.Rec.Analog 100 UNIT/ML ML SUBCUT SCH (19:08)
--- NOTE | 2019-01-24 21:48 | PCM.PN ---
- General Info Date of Service: 01/24/19 Admission Dx/Problem (Free Text): Admitted for treatment of increased shortness of breath. COPD exacerbation. Possible contributing respiratory tract infection. Subjective Update: Continues to feel increased shortness of breath/cough but reports that it has improved since admission yesterday. No new complaints. Functional Status: Reports: Pain Controlled - Review of Systems General: Reports: Weakness HEENT: Reports: No Symptoms Pulmonary: Reports: Shortness of Breath (improving), Cough (improving) Cardiovascular: Reports: No Symptoms Gastrointestinal: Reports: No Symptoms Genitourinary: Reports: No Symptoms Musculoskeletal: Reports: No Symptoms Skin: Reports: Bruising Neurological: Reports: Difficulty Walking, Weakness Psychiatric: Reports: No Symptoms - Patient Data Vitals - Most Recent: Last Vital Signs Temp 98.5 F 01/24/19 19:16 Pulse 85 01/24/19 19:16 Resp 20 01/24/19 19:16 BP 158/88 H 01/24/19 19:16 Pulse Ox 95 01/24/19 19:16 Weight - Most Recent: 270 lb I&O - Last 24 Hours: Intake & Output 01/24/19 01/24/19 01/24/19 06:59 14:59 22:59 Intake Total 0 600 1000 Output Total 1000 475 Balance -1000 600 525 Lab Results Last 24 Hours: Laboratory Results - last 24 hr 01/24/19 01/24/19 01/24/19 Range/Units 06:50 06:50 07:07 WBC 11.5 H (4.0-10.2) K/uL RBC 3.03 L (4.33-5.41) M/uL Hgb 10.7 L (13.1-16.8) g/dL Hct 32.7 L (39.0-49.0) % MCV 107.9 H (84.0-98.0) fL MCH 35.3 H (28.2-33.3) pg MCHC 32.7 (31.7-36.0) g/dL RDW 18.7 H (11.2-14.1) % Plt Count 179 (150-350) K/uL Neut % (Auto) 70.8 (45.0-80.0) % Lymph % (Auto) 19.6 (10.0-50.0) % [place] % (Auto) 9.4 (2.0-14.0) % Eos % (Auto) 0.1 (0.0-5.0) % Baso % (Auto) 0.1 (0.0-2.0) % Neut # (Auto) 8.17 H (1.40-7.00) K/uL Lymph # (Auto) 2.26 (0.50-3.50) K/uL [place] # (Auto) 1.09 H (0.00-1.00) K/uL Eos # (Auto) 0.01 (0.00-0.50) K/uL Baso # (Auto) 0.01 (0.00-0.20) K/uL Sodium 137 (136-145) mmol/L Potassium 4.2 (3.5-5.1) mmol/L Chloride 99 (98-107) mmol/L Carbon Dioxide 30.8 (21.0-32.0) mmol/L BUN 40 H (7-18) mg/dL Creatinine 1.10 (0.51-1.17) mg/dL Est Cr Clr Drug Dosing 55.30 mL/min Estimated GFR (MDRD) > 60 mL/min Glucose 178 H (74-106) mg/dL POC Glucose 182 H (65-110) mg/dl Calcium 9.2 (8.5-10.1) mg/dL Total Bilirubin 0.2 (0.2-1.0) mg/dL AST 17 (15-37) U/L ALT 32 (12-78) U/L Alkaline Phosphatase 65 (46-116) IU/L C-Reactive Protein 7.5 H (<=0.9) mg/dL Total Protein 6.0 L (6.4-8.2) g/dL Albumin 2.5 L (3.4-5.0) g/dL 01/24/19 01/24/19 Range/Units 11:16 16:57 WBC (4.0-10.2) K/uL RBC (4.33-5.41) M/uL Hgb (13.1-16.8) g/dL Hct (39.0-49.0) % MCV (84.0-98.0) fL MCH (28.2-33.3) pg MCHC (31.7-36.0) g/dL RDW (11.2-14.1) % Plt Count (150-350) K/uL Neut % (Auto) (45.0-80.0) % Lymph % (Auto) (10.0-50.0) % [place] % (Auto) (2.0-14.0) % Eos % (Auto) (0.0-5.0) % Baso % (Auto) (0.0-2.0) % Neut # (Auto) (1.40-7.00) K/uL Lymph # (Auto) (0.50-3.50) K/uL [place] # (Auto) (0.00-1.00) K/uL Eos # (Auto) (0.00-0.50) K/uL Baso # (Auto) (0.00-0.20) K/uL Sodium (136-145) mmol/L Potassium (3.5-5.1) mmol/L Chloride (98-107) mmol/L Carbon Dioxide (21.0-32.0) mmol/L BUN (7-18) mg/dL Creatinine (0.51-1.17) mg/dL Est Cr Clr Drug Dosing mL/min Estimated GFR (MDRD) mL/min Glucose (74-106) mg/dL POC Glucose 312 H* 334 H* (65-110) mg/dl Calcium (8.5-10.1) mg/dL Total Bilirubin (0.2-1.0) mg/dL AST (15-37) U/L ALT (12-78) U/L Alkaline Phosphatase (46-116) IU/L C-Reactive Protein (<=0.9) mg/dL Total Protein (6.4-8.2) g/dL Albumin (3.4-5.0) g/dL Murali Results Last 24 Hours: Microbiology 01/21/19 12:02 Aerobic Blood Culture - Preliminary Blood - Venous - Lab Draw NO GROWTH AFTER 3 DAYS Anaerobic Blood Culture - Preliminary NO GROWTH AFTER 3 DAYS 01/21/19 11:45 Aerobic Blood Culture - Preliminary Blood - Venous NO GROWTH AFTER 3 DAYS Anaerobic Blood Culture - Preliminary NO GROWTH AFTER 3 DAYS Med Orders - Current: Current Medications Acetaminophen (Tylenol) 650 mg PO Q4H PRN PRN Reason: Pain Albuterol/Ipratropium (Duoneb 3.0-0.5 Mg/3 Ml) 3 ml NEB QID [facility] Last Admin: 01/24/19 19:08 Dose: 3 ml Allopurinol (Zyloprim) 300 mg PO QAM [facility] Last Admin: 01/24/19 08:31 Dose: 300 mg Arformoterol Tartrate (Brovana) 15 mcg INH BID [facility] Last Admin: 01/24/19 17:41 Dose: 15 mcg Artificial Tears (Liquitears 1.4% Ophth Soln) 0 ml EYEBOTH TID@0800,1200,2000 [facility] Last Admin: 01/24/19 19:08 Dose: 1 drop Budesonide (Pulmicort) 0.5 mg INH BID [facility] Last Admin: 01/24/19 17:41 Dose: 0.5 mg Carvedilol (Coreg) 12.5 mg PO BID [facility] Last Admin: 01/24/19 17:41 Dose: 12.5 mg Docusate Sodium (Colace) 100 mg PO BID [facility] Last Admin: 01/24/19 17:42 Dose: 100 mg Enoxaparin Sodium (Lovenox) 40 mg SUBCUT DAILY [facility] Last Admin: 01/24/19 08:33 Dose: 40 mg Furosemide (Lasix) 20 mg IVPUSH BID [facility] Last Admin: 01/24/19 17:41 Dose: 20 mg Gabapentin (Neurontin) 300 mg PO TID [facility] Last Admin: 01/24/19 17:42 Dose: 300 mg Hydrocortisone (Proctozone-Hc 2.5% Crm) 0 gm TOP BID PRN PRN Reason: Hemorrhoids Last Admin: 01/22/19 20:28 Dose: 1 applic Azithromycin 500 mg/ Sodium (Chloride) 250 mls @ 250 mls/hr IV Q24H [facility] Last Admin: 01/24/19 11:59 Dose: 250 mls/hr Ceftriaxone Sodium 1 gm/ (Sodium Chloride) 100 mls @ 200 mls/hr IV Q24H [facility] Last Admin: 01/24/19 13:32 Dose: 200 mls/hr Insulin Glargine (Lantus) 20 unit SUBCUT BEDTIME [facility] Last Admin: 01/24/19 19:08 Dose: 20 units Insulin Human Lispro (Humalog) 0 unit SUBCUT TID@0800,1200,1800 SALOMÓN; Protocol Last Admin: 01/24/19 17:39 Dose: 12 units Isosorbide Mononitrate (Imdur) 60 mg PO DAILY [facility] Last Admin: 01/24/19 08:32 Dose: 60 mg Loratadine (Claritin) 10 mg PO DAILY [facility] Last Admin: 01/24/19 08:32 Dose: 10 mg Magnesium Oxide (Magnesium Oxide) 400 mg PO BID [facility] Last Admin: 01/24/19 17:41 Dose: 400 mg Methylprednisolone Sodium Succinate (Solu-Medrol) 40 mg IVPUSH DAILY [facility] Last Admin: 01/24/19 08:28 Dose: 40 mg Omeprazole (Omeprazole) 20 mg PO BID [facility] Last Admin: 01/24/19 17:41 Dose: 20 mg Potassium Chloride (Potassium Chloride Solution) 20 meq PO DAILY [facility] Last Admin: 01/24/19 08:28 Dose: 20 meq Sodium Chloride (Saline Flush) 10 ml FLUSH ASDIRECTED PRN PRN Reason: Keep Vein Open Last Admin: 01/24/19 17:40 Dose: 10 ml Tamsulosin HCl (Flomax) 0.4 mg PO DAILY [facility] Last Admin: 01/24/19 08:31 Dose: 0.4 mg Discontinued Medications Albuterol/Ipratropium (Duoneb 3.0-0.5 Mg/3 Ml) 3 ml NEB ONETIME ONE Stop: 01/21/19 11:42 Last Admin: 01/21/19 11:59 Dose: 3 ml Furosemide (Lasix) 40 mg IVPUSH NOW ONE Stop: 01/21/19 11:42 Last Admin: 01/21/19 11:59 Dose: 40 mg Azithromycin 500 mg/ Sodium (Chloride) 250 mls @ 250 mls/hr IV Q24H [facility] Last Admin: 01/21/19 12:58 Dose: 250 mls/hr Ceftriaxone Sodium 1 gm/ (Sodium Chloride) 100 mls @ 200 mls/hr IV Q24H [facility] Last Admin: 01/21/19 12:58 Dose: 200 mls/hr Insulin Human Lispro (Humalog) 8 unit SUBCUT TID@0800,1200,1800 [facility] Insulin Human Lispro (Humalog) 18 unit SUBCUT ONETIME ONE Stop: 01/22/19 17:43 Insulin Human Lispro (Humalog) 18 unit SUBCUT ONETIME ONE Stop: 01/21/19 17:43 Last Admin: 01/21/19 18:24 Dose: 18 unit Insulin Human Lispro (Humalog) 15 unit SUBCUT ONETIME ONE Stop: 01/21/19 19:48 Last Admin: 01/21/19 20:07 Dose: 15 units Insulin Human Lispro (Humalog) 15 unit SUBCUT BIDAC ONE Stop: 01/21/19 22:40 Last Admin: 01/21/19 22:56 Dose: 15 units Insulin Human Lispro (Humalog) 0 unit SUBCUT ONETIME ONE Stop: 01/22/19 01:12 Last Admin: 01/22/19 01:27 Dose: 15 units Iopamidol (Isovue-370 (76%)) 100 ml IVPUSH ONETIME ONE Stop: 01/21/19 13:51 Last Admin: 01/21/19 14:36 Dose: 100 ml Methylprednisolone Sodium Succinate (Solu-Medrol) 125 mg IVPUSH ONETIME ONE Stop: 01/21/19 11:43 Last Admin: 01/21/19 11:59 Dose: 125 mg - Exam Quality Assessment: Supplemental Oxygen General: Alert, Cooperative, No Acute Distress HEENT: Mucous Membr. Moist/[place]: Trachea Midline, No JVD Lungs: Normal Respiratory Effort, Decreased Breath Sounds Cardiovascular: Regular Rate, Regular Rhythm GI/Abdominal Exam: Soft, Non-Tender, No Distention (Male) Exam: Deferred Back Exam: Normal Inspection Extremities: Non-Tender, Pedal Edema Skin: Warm, Dry, Ecchymosis Neurological: No New Focal Deficit Psy/Mental Status: Alert, Normal Affect, Normal Mood - Problem List & Annotations (1) Pneumonia SNOMED Code(s): 159914600 Code(s): J18.9 - PNEUMONIA, UNSPECIFIED ORGANISM Status: Acute Priority: High Current Visit: Yes Qualifiers: Pneumonia type: due to unspecified organism Laterality: unspecified laterality Lung location: unspecified part of lung Qualified Code(s): J18.9 - Pneumonia, unspecified organism Annotation/Comment:: (2) Anemia SNOMED Code(s): 503191278 Code(s): D64.9 - ANEMIA, UNSPECIFIED Status: Chronic Priority: Low Current Visit: Yes Qualifiers: Anemia type: other cause Other causes of anemia: chronic disease, other Qualified Code(s): D63.8 - Anemia in other chronic diseases classified elsewhere (3) COPD (chronic obstructive pulmonary disease) SNOMED Code(s): 34754813 Code(s): J44.9 - CHRONIC OBSTRUCTIVE PULMONARY DISEASE, UNSPECIFIED Status : Chronic Priority: High Current Visit: Yes Qualifiers: COPD type: COPD with acute exacerbation Qualified Code(s): J44.1 - Chronic obstructive pulmonary disease with (acute) exacerbation (4) Chronic respiratory failure with hypoxia SNOMED Code(s): 457404366 Code(s): J96.11 - CHRONIC RESPIRATORY FAILURE WITH HYPOXIA Status: Chronic Priority: Medium Current Visit: Yes (5) Leukocytosis SNOMED Code(s): 474821045, 714672164 Code(s): D72.829 - ELEVATED WHITE BLOOD CELL COUNT, UNSPECIFIED Status: Chronic Priority: Medium Current Visit: Yes Qualifiers: Leukocytosis type: unspecified Qualified Code(s): D72.829 - Elevated white blood cell count, unspecified (6) CHF, Congestive heart failure SNOMED Code(s): 08641543 Code(s): I50.9 - HEART FAILURE, UNSPECIFIED Status: Chronic Priority: High Current Visit: No (7) Chronic GERD SNOMED Code(s): 836545097, 394113258 Code(s): K21.9 - GASTRO-ESOPHAGEAL REFLUX DISEASE WITHOUT ESOPHAGITIS Status: Chronic Priority: Medium Current Visit: No (8) Chronic cerebral ischemia SNOMED Code(s): 113351023 Code(s): I67.82 - CEREBRAL ISCHEMIA Status: Chronic Priority: Medium Current Visit: No (9) Chronic diastolic (congestive) heart failure SNOMED Code(s): 338356539, 914187317 Code(s): I50.32 - CHRONIC DIASTOLIC (CONGESTIVE) HEART FAILURE Status: Chronic Priority: Medium Current Visit: No (10) Chronic kidney disease (CKD) SNOMED Code(s): 897651522 Code(s): N18.9 - CHRONIC KIDNEY DISEASE, UNSPECIFIED Status: Chronic Priority: Low Current Visit: No Qualifiers: Chronic kidney disease stage: unspecified stage Qualified Code(s): N18.9 - Chronic kidney disease, unspecified (11) Comfort measures only status SNOMED Code(s): 96582019827803 Code(s): Z51.5 - ENCOUNTER FOR PALLIATIVE CARE Status: Chronic Priority: Medium Current Visit: No (12) Coronary artery disease SNOMED Code(s): 61993535 Code(s): I25.10 - ATHSCL HEART DISEASE OF [place] CORONARY ARTERY W/O ANG PCTRS Status: Chronic Priority: Medium Current Visit: No Qualifiers: Coronary Disease-Associated Artery/Lesion type: [place] artery [place] vs. transplanted heart: [place] heart Associated angina: without angina Qualified Code(s): I25.10 - Atherosclerotic heart disease of [place] coronary artery without angina pectoris (13) DNI (do not intubate) SNOMED Code(s): 687825225 Code(s): Z78.9 - OTHER SPECIFIED HEALTH STATUS Status: Chronic Current Visit: No (14) DNR (do not resuscitate) Status: Chronic Current Visit: No (15) Diabetes mellitus SNOMED Code(s): 67317553 Code(s): E11.9 - TYPE 2 DIABETES MELLITUS WITHOUT COMPLICATIONS Status: Chronic Priority: Medium Current Visit: No (16) Dyslipidemia SNOMED Code(s): 451534657 Code(s): E78.5 - HYPERLIPIDEMIA, UNSPECIFIED Status: Chronic Priority: Medium Current Visit: No (17) Emphysema lung SNOMED Code(s): 59153431 Code(s): J43.9 - EMPHYSEMA, UNSPECIFIED Status: Chronic Current Visit: No Qualifiers: Emphysema type: centrilobular Qualified Code(s): J43.2 - Centrilobular emphysema (18) Generalized weakness SNOMED Code(s): 75980129 Code(s): R53.1 - WEAKNESS Status: Chronic Current Visit: No (19) Gout SNOMED Code(s): 16762121 Code(s): M10.9 - GOUT, UNSPECIFIED Status: Chronic Priority: Low Current Visit: No Qualifiers: Gout site: multiple sites Gout etiology: due to renal impairment Chronicity: chronic Presence of tophus: without tophus Qualified Code(s): M1A.39X0 - Chronic gout due to renal impairment, multiple sites, without tophus (tophi) (20) HTN, Benign hypertension SNOMED Code(s): 80914698 Code(s): I10 - ESSENTIAL (PRIMARY) HYPERTENSION Status: Chronic Priority : Medium Current Visit: No (21) Heart disease SNOMED Code(s): 06692726 Code(s): I51.9 - HEART DISEASE, UNSPECIFIED Status: Chronic Priority: High Current Visit: No Annotation/Comment:: (22) Hemorrhoids SNOMED Code(s): 83074403 Code(s): K64.9 - UNSPECIFIED HEMORRHOIDS Status: Chronic Current Visit: No Qualifiers: Hemorrhoid type: other Qualified Code(s): K64.8 - Other hemorrhoids (23) History of ESBL Klebsiella pneumoniae infection SNOMED Code(s): 160665001 Code(s): Z86.19 - PERSONAL HISTORY OF OTHER INFECTIOUS AND PARASITIC DISEASES Status: Chronic Priority: High Current Visit: No (24) Hypoalbuminemia SNOMED Code(s): 689375755 Code(s): E88.09 - OTH DISORDERS OF PLASMA-PROTEIN METABOLISM, NEC Status: Chronic Priority: Medium Current Visit: No (25) Hypomagnesemia SNOMED Code(s): 375199861 Code(s): E83.42 - HYPOMAGNESEMIA Status: Chronic Priority: Medium Current Visit: No Onset Date: 06/29/16 (26) Neuropathy SNOMED Code(s): 355212147 Code(s): G62.9 - POLYNEUROPATHY, UNSPECIFIED Status: Chronic Priority: Medium Current Visit: No (27) Obesity (BMI 30-39.9) SNOMED Code(s): 013469688, 464054005 Code(s): E66.9 - OBESITY, UNSPECIFIED Status: Chronic Priority: Medium Current Visit: No (28) Obstructive sleep apnea on CPAP SNOMED Code(s): 93801731 Code(s): G47.33 - OBSTRUCTIVE SLEEP APNEA (ADULT) (PEDIATRIC); Z99.89 - DEPENDENCE ON OTHER ENABLING MACHINES AND DEVICES Status: Chronic Priority: Low Current Visit: No Annotation/Comment:: (29) Old cerebrovascular accident (CVA) without late effect SNOMED Code(s): 479233680 Code(s): Z86.73 - PRSNL HX OF TIA (TIA), AND CEREB INFRC W/O RESID DEFICITS Status: Chronic Priority: Medium Current Visit: No (30) Osteoarthritis SNOMED Code(s): 327050645 Code(s): M19.90 - UNSPECIFIED OSTEOARTHRITIS, UNSPECIFIED SITE Status: Chronic Priority: Medium Current Visit: No (31) Oxygen dependent SNOMED Code(s): 174567841936 Code(s): Z99.81 - DEPENDENCE ON SUPPLEMENTAL OXYGEN Status: Chronic Priority: High Current Visit: No (32) Physical deconditioning SNOMED Code(s): 16371962181858 Code(s): R53.81 - OTHER MALAISE Status: Chronic Priority: High Current Visit: No (33) Thrombocytopenia SNOMED Code(s): 137564206 Code(s): D69.6 - THROMBOCYTOPENIA, UNSPECIFIED Status: Chronic Priority: High Current Visit: No (34) Weakness generalized SNOMED Code(s): 15518665 Code(s): R53.1 - WEAKNESS Status: Chronic Priority: High Current Visit : No - Problem List Review Problem List Initiated/Reviewed/Updated: Yes - Assessment Assessment:: as above - Plan Plan:: as above. Anticipate 2-3 additional days of inpatient care secondary to multiple chronic conditions as listed above. 01/23/2019 Patient feels better, but still with cough. Patient states his legs are still weak. Labs noted, WBC continues to be elevated. Patient continues to need IV antibiotics due to his recurrent pneumonia and hospitalizations. Patient has appointment with specialist next week in regards to his repeat infections. Recheck labs in the morning. Astrid Damon,CYNTHIA 01/24/19 Dusty Seaman MD Continues to feel better. Less shortness of breath. Less weakness. Continue IV antibiotics. Discharge plans discussed.
[2019-01-25 07:15] LABS: O2 DELIVERY DEVICE NASAL CANNULA
[2019-01-25] MEDS: Budesonide 0.5 MG/2 ML Neb Susp INH SCH (07:41)
[2019-01-25] MEDS: Albuterol/Ipratropium 3.0-0.5 MG/3 ML Neb Soln NEB SCH ×2 (07:41→12:06)
[2019-01-25] MEDS: Insulin Lispro 100 Units/ML 3 ML Vial SUBCUT SCH ×2 (07:41→12:05)
[2019-01-25] MEDS: Potassium Chloride 10% 20 MEQ/15 ML Soln 15 ML UD Cup PO SCH (07:42)
[2019-01-25] MEDS: Gabapentin 300 MG Cap PO SCH ×2 (07:42→12:06)
[2019-01-25] MEDS: Isosorbide Mononitrate 60 MG Tab.ER PO SCH (07:42)
[2019-01-25] MEDS: Loratadine 10 MG Tab PO SCH (07:42)
[2019-01-25] MEDS: Omeprazole 20 MG Cap.CR PO SCH (07:42)
[2019-01-25] MEDS: Arformoterol 15 MCG/2 ML Neb Soln INH SCH (07:42)
[2019-01-25] MEDS: Magnesium Oxide 400 MG Tab PO SCH (07:42)
[2019-01-25] MEDS: Allopurinol 100 MG Tab PO SCH (07:42)
[2019-01-25] MEDS: Carvedilol 12.5 MG Tab PO SCH (07:42)
[2019-01-25] MEDS: Furosemide 20 MG/2 ML VIAL IVPUSH SCH (07:43)
[2019-01-25] MEDS: Tamsulosin 0.4 MG Cap.ER PO SCH (07:43)
[2019-01-25] MEDS: Docusate Sodium 100 MG Cap PO SCH (07:43)
[2019-01-25] MEDS: methylPREDNISolone Sodium Succinate 40 MG/1 ML SDV IVPUSH SCH (07:43)
[2019-01-25] MEDS: Polyvinyl Alcohol 1.4% Ophth Soln 15 ML Bottle EYEBOTH SCH ×2 (07:53→12:06)
[2019-01-25] MEDS ORDERED: Azithromycin 250 MG Tab PO SCH (08:00)
[2019-01-25] MEDS ORDERED: Sodium Chloride 0.9% 10 ML Syringe FLUSH SCH (08:00)
[2019-01-25 08:14] LABS: CHLORIDE,CL 97 mmol/L (98-107); SODIUM,NA 138 mmol/L (136-145)
[2019-01-25 08:23] LABS: BICARBONATE,VENOUS 33 mmol/L (23-28); PCO2 VENOUS 49 mmHG (41-51); PH,VENOUS 7.43 (7.31-7.41); PO2 VENOUS 49 mmHG
[2019-01-25 08:24] LABS: BASE EXCESS VENOUS 8 mmol/L ((-2)-3); O2 SATURATION VENOUS 85 %
[2019-01-25 12:16] VITALS: BP 139/78; PULSE 89
[2019-01-25] MEDS: cefTRIAXone 1 GM in Sodium Chloride 0.9% 100 ML IV SCH (13:51)
[2019-01-25] MEDS: Sodium Chloride 0.9% 10 ML Syringe FLUSH PRN (13:51)
--- NOTE | 2019-01-26 00:06 | PCM.PN ---
- General Info Date of Service: 01/26/19 Admission Dx/Problem (Free Text): Admitted for treatment of increased shortness of breath. COPD exacerbation. Possible contributing respiratory tract infection. Subjective Update: Continues to feel increased shortness of breath/cough but reports that it has improved since admission yesterday. No new complaints. Functional Status: Reports: Pain Controlled - Review of Systems General: Reports: Weakness HEENT: Reports: No Symptoms Pulmonary: Reports: Shortness of Breath, Cough Cardiovascular: Reports: No Symptoms Gastrointestinal: Reports: No Symptoms Genitourinary: Reports: Frequency Musculoskeletal: Reports: Shoulder Pain, Arm Pain, Hand Pain, Back Pain, Leg Pain, Joint Pain (knee) Skin: Reports: No Symptoms Neurological: Reports: Weakness Psychiatric: Reports: No Symptoms - Patient Data Vitals - Most Recent: Last Vital Signs Temp 96.8 F 01/25/19 12:00 Pulse 89 01/25/19 12:00 Resp 19 01/25/19 12:00 BP 139/78 01/25/19 12:00 Pulse Ox 95 01/25/19 15:00 Weight - Most Recent: 270 lb I&O - Last 24 Hours: Intake & Output 01/25/19 01/25/19 01/26/19 14:59 22:59 06:59 Intake Total 600 Balance 600 Lab Results Last 24 Hours: Laboratory Results - last 24 hr 01/24/19 01/25/19 01/25/19 Range/Units 19:07 07:00 07:00 WBC 9.7 (4.0-10.2) K/uL RBC 3.08 L (4.33-5.41) M/uL Hgb 10.9 L (13.1-16.8) g/dL Hct 33.2 L (39.0-49.0) % MCV 107.8 H (84.0-98.0) fL MCH 35.4 H (28.2-33.3) pg MCHC 32.8 (31.7-36.0) g/dL RDW 18.5 H (11.2-14.1) % Plt Count 178 (150-350) K/uL Neut % (Auto) 64.9 (45.0-80.0) % Lymph % (Auto) 23.7 (10.0-50.0) % [place] % (Auto) 11.0 (2.0-14.0) % Eos % (Auto) 0.3 (0.0-5.0) % Baso % (Auto) 0.1 (0.0-2.0) % Neut # (Auto) 6.31 (1.40-7.00) K/uL Lymph # (Auto) 2.30 (0.50-3.50) K/uL [place] # (Auto) 1.07 H (0.00-1.00) K/uL Eos # (Auto) 0.03 (0.00-0.50) K/uL Baso # (Auto) 0.01 (0.00-0.20) K/uL ESR 93 H (0-20) mm/hr VBG pH (7.31-7.41) VBG pCO2 (41-51) mmHG VBG pO2 mmHG VBG HCO3 (23-28) mmol/L VBG Total CO2 mmol/L VBG O2 Saturation % VBG Base Excess ((-2)-3) mmol/L O2 Delivery Device Sodium 138 (136-145) mmol/L Potassium 4.0 (3.5-5.1) mmol/L Chloride 97 L (98-107) mmol/L Carbon Dioxide 32.2 H (21.0-32.0) mmol/L BUN 39 H (7-18) mg/dL Creatinine 1.04 (0.51-1.17) mg/dL Est Cr Clr Drug Dosing 58.49 mL/min Estimated GFR (MDRD) > 60 mL/min Glucose 158 H (74-106) mg/dL POC Glucose 340 H* (65-110) mg/dl Lactic Acid (0.4-2.0) mmol/L Uric Acid 6.8 (2.6-7.2) mg/dL Calcium 9.1 (8.5-10.1) mg/dL Magnesium 2.2 (1.8-2.4) mg/dL Total Bilirubin 0.2 (0.2-1.0) mg/dL AST 19 (15-37) U/L ALT 36 (12-78) U/L Alkaline Phosphatase 63 (46-116) IU/L C-Reactive Protein 4.2 H (<=0.9) mg/dL Total Protein 6.1 L (6.4-8.2) g/dL Albumin 2.7 L (3.4-5.0) g/dL 01/25/19 01/25/19 01/25/19 Range/Units 07:00 07:00 07:38 WBC (4.0-10.2) K/uL RBC (4.33-5.41) M/uL Hgb (13.1-16.8) g/dL Hct (39.0-49.0) % MCV (84.0-98.0) fL MCH (28.2-33.3) pg MCHC (31.7-36.0) g/dL RDW (11.2-14.1) % Plt Count (150-350) K/uL Neut % (Auto) (45.0-80.0) % Lymph % (Auto) (10.0-50.0) % [place] % (Auto) (2.0-14.0) % Eos % (Auto) (0.0-5.0) % Baso % (Auto) (0.0-2.0) % Neut # (Auto) (1.40-7.00) K/uL Lymph # (Auto) (0.50-3.50) K/uL [place] # (Auto) (0.00-1.00) K/uL Eos # (Auto) (0.00-0.50) K/uL Baso # (Auto) (0.00-0.20) K/uL ESR (0-20) mm/hr VBG pH 7.43 H (7.31-7.41) VBG pCO2 49 (41-51) mmHG VBG pO2 49 mmHG VBG HCO3 33 H (23-28) mmol/L VBG Total CO2 34 mmol/L VBG O2 Saturation 85 % VBG Base Excess 8 H ((-2)-3) mmol/L O2 Delivery Device Nasal cannula Sodium (136-145) mmol/L Potassium (3.5-5.1) mmol/L Chloride (98-107) mmol/L Carbon Dioxide (21.0-32.0) mmol/L BUN (7-18) mg/dL Creatinine (0.51-1.17) mg/dL Est Cr Clr Drug Dosing mL/min Estimated GFR (MDRD) mL/min Glucose (74-106) mg/dL POC Glucose 144 H (65-110) mg/dl Lactic Acid 2.7 H (0.4-2.0) mmol/L Uric Acid (2.6-7.2) mg/dL Calcium (8.5-10.1) mg/dL Magnesium (1.8-2.4) mg/dL Total Bilirubin (0.2-1.0) mg/dL AST (15-37) U/L ALT (12-78) U/L Alkaline Phosphatase (46-116) IU/L C-Reactive Protein (<=0.9) mg/dL Total Protein (6.4-8.2) g/dL Albumin (3.4-5.0) g/dL 01/25/19 Range/Units 11:54 WBC (4.0-10.2) K/uL RBC (4.33-5.41) M/uL Hgb (13.1-16.8) g/dL Hct (39.0-49.0) % MCV (84.0-98.0) fL MCH (28.2-33.3) pg MCHC (31.7-36.0) g/dL RDW (11.2-14.1) % Plt Count (150-350) K/uL Neut % (Auto) (45.0-80.0) % Lymph % (Auto) (10.0-50.0) % [place] % (Auto) (2.0-14.0) % Eos % (Auto) (0.0-5.0) % Baso % (Auto) (0.0-2.0) % Neut # (Auto) (1.40-7.00) K/uL Lymph # (Auto) (0.50-3.50) K/uL [place] # (Auto) (0.00-1.00) K/uL Eos # (Auto) (0.00-0.50) K/uL Baso # (Auto) (0.00-0.20) K/uL ESR (0-20) mm/hr VBG pH (7.31-7.41) VBG pCO2 (41-51) mmHG VBG pO2 mmHG VBG HCO3 (23-28) mmol/L VBG Total CO2 mmol/L VBG O2 Saturation % VBG Base Excess ((-2)-3) mmol/L O2 Delivery Device Sodium (136-145) mmol/L Potassium (3.5-5.1) mmol/L Chloride (98-107) mmol/L Carbon Dioxide (21.0-32.0) mmol/L BUN (7-18) mg/dL Creatinine (0.51-1.17) mg/dL Est Cr Clr Drug Dosing mL/min Estimated GFR (MDRD) mL/min Glucose (74-106) mg/dL POC Glucose 343 H* (65-110) mg/dl Lactic Acid (0.4-2.0) mmol/L Uric Acid (2.6-7.2) mg/dL Calcium (8.5-10.1) mg/dL Magnesium (1.8-2.4) mg/dL Total Bilirubin (0.2-1.0) mg/dL AST (15-37) U/L ALT (12-78) U/L Alkaline Phosphatase (46-116) IU/L C-Reactive Protein (<=0.9) mg/dL Total Protein (6.4-8.2) g/dL Albumin (3.4-5.0) g/dL Murali Results Last 24 Hours: Microbiology 01/21/19 12:02 Aerobic Blood Culture - Preliminary Blood - Venous - Lab Draw NO GROWTH AFTER 4 DAYS Anaerobic Blood Culture - Preliminary NO GROWTH AFTER 4 DAYS 01/21/19 11:45 Aerobic Blood Culture - Preliminary Blood - Venous NO GROWTH AFTER 4 DAYS Anaerobic Blood Culture - Preliminary NO GROWTH AFTER 4 DAYS Med Orders - Current: Current Medications Discontinued Medications Acetaminophen (Tylenol) 650 mg PO Q4H PRN PRN Reason: Pain Albuterol/Ipratropium (Duoneb 3.0-0.5 Mg/3 Ml) 3 ml NEB ONETIME ONE Stop: 01/21/19 11:42 Last Admin: 01/21/19 11:59 Dose: 3 ml Albuterol/Ipratropium (Duoneb 3.0-0.5 Mg/3 Ml) 3 ml NEB QID [facility] Last Admin: 01/25/19 12:06 Dose: 3 ml Allopurinol (Zyloprim) 300 mg PO QAM [facility] Last Admin: 01/25/19 07:42 Dose: 300 mg Arformoterol Tartrate (Brovana) 15 mcg INH BID [facility] Last Admin: 01/25/19 07:42 Dose: 15 mcg Artificial Tears (Liquitears 1.4% Ophth Soln) 0 ml EYEBOTH TID@0800,1200,2000 [facility] Last Admin: 01/25/19 12:06 Dose: 1 drop Azithromycin (Zithromax) 500 mg PO DAILY [facility] Last Admin: 01/25/19 07:43 Dose: 500 mg Budesonide (Pulmicort) 0.5 mg INH BID [facility] Last Admin: 01/25/19 07:41 Dose: 0.5 mg Carvedilol (Coreg) 12.5 mg PO BID [facility] Last Admin: 01/25/19 07:42 Dose: 12.5 mg Docusate Sodium (Colace) 100 mg PO BID [facility] Last Admin: 01/25/19 07:43 Dose: 100 mg Enoxaparin Sodium (Lovenox) 40 mg SUBCUT DAILY [facility] Last Admin: 01/24/19 08:33 Dose: 40 mg Furosemide (Lasix) 40 mg IVPUSH NOW ONE Stop: 01/21/19 11:42 Last Admin: 01/21/19 11:59 Dose: 40 mg Furosemide (Lasix) 20 mg IVPUSH BID [facility] Last Admin: 01/25/19 07:43 Dose: 20 mg Gabapentin (Neurontin) 300 mg PO TID [facility] Last Admin: 01/25/19 12:06 Dose: 300 mg Hydrocortisone (Proctozone-Hc 2.5% Crm) 0 gm TOP BID PRN PRN Reason: Hemorrhoids Last Admin: 01/22/19 20:28 Dose: 1 applic Azithromycin 500 mg/ Sodium (Chloride) 250 mls @ 250 mls/hr IV Q24H [facility] Last Admin: 01/21/19 12:58 Dose: 250 mls/hr Ceftriaxone Sodium 1 gm/ (Sodium Chloride) 100 mls @ 200 mls/hr IV Q24H [facility] Last Admin: 01/21/19 12:58 Dose: 200 mls/hr Azithromycin 500 mg/ Sodium (Chloride) 250 mls @ 250 mls/hr IV Q24H [facility] Last Admin: 01/24/19 11:59 Dose: 250 mls/hr Ceftriaxone Sodium 1 gm/ (Sodium Chloride) 100 mls @ 200 mls/hr IV Q24H [facility] Last Admin: 01/25/19 13:51 Dose: 200 mls/hr Insulin Glargine (Lantus) 20 unit SUBCUT BEDTIME [facility] Last Admin: 01/24/19 19:08 Dose: 20 units Insulin Human Lispro (Humalog) 8 unit SUBCUT TID@0800,1200,1800 [facility] Insulin Human Lispro (Humalog) 0 unit SUBCUT TID@0800,1200,1800 [facility]; Protocol Last Admin: 01/25/19 12:05 Dose: 12 units Insulin Human Lispro (Humalog) 18 unit SUBCUT ONETIME ONE Stop: 01/22/19 17:43 Insulin Human Lispro (Humalog) 18 unit SUBCUT ONETIME ONE Stop: 01/21/19 17:43 Last Admin: 01/21/19 18:24 Dose: 18 unit Insulin Human Lispro (Humalog) 15 unit SUBCUT ONETIME ONE Stop: 01/21/19 19:48 Last Admin: 01/21/19 20:07 Dose: 15 units Insulin Human Lispro (Humalog) 15 unit SUBCUT BIDAC ONE Stop: 01/21/19 22:40 Last Admin: 01/21/19 22:56 Dose: 15 units Insulin Human Lispro (Humalog) 0 unit SUBCUT ONETIME ONE Stop: 01/22/19 01:12 Last Admin: 01/22/19 01:27 Dose: 15 units Iopamidol (Isovue-370 (76%)) 100 ml IVPUSH ONETIME ONE Stop: 01/21/19 13:51 Last Admin: 01/21/19 14:36 Dose: 100 ml Isosorbide Mononitrate (Imdur) 60 mg PO DAILY [facility] Last Admin: 01/25/19 07:42 Dose: 60 mg Loratadine (Claritin) 10 mg PO DAILY [facility] Last Admin: 01/25/19 07:42 Dose: 10 mg Magnesium Oxide (Magnesium Oxide) 400 mg PO BID [facility] Last Admin: 01/25/19 07:42 Dose: 400 mg Methylprednisolone Sodium Succinate (Solu-Medrol) 125 mg IVPUSH ONETIME ONE Stop: 01/21/19 11:43 Last Admin: 01/21/19 11:59 Dose: 125 mg Methylprednisolone Sodium Succinate (Solu-Medrol) 40 mg IVPUSH DAILY [facility] Last Admin: 01/25/19 07:43 Dose: 40 mg Omeprazole (Omeprazole) 20 mg PO BID [facility] Last Admin: 01/25/19 07:42 Dose: 20 mg Potassium Chloride (Potassium Chloride Solution) 20 meq PO DAILY [facility] Last Admin: 01/25/19 07:42 Dose: 20 meq Sodium Chloride (Saline Flush) 10 ml FLUSH ASDIRECTED PRN PRN Reason: Keep Vein Open Last Admin: 01/25/19 13:51 Dose: 10 ml Sodium Chloride (Saline Flush) 10 ml FLUSH Q12HR [facility] Last Admin: 01/25/19 07:43 Dose: 10 ml Tamsulosin HCl (Flomax) 0.4 mg PO DAILY [facility] Last Admin: 01/25/19 07:43 Dose: 0.4 mg - Exam Quality Assessment: Supplemental Oxygen, DVT Prophylaxis General: Alert, Cooperative, No Acute Distress HEENT: Pupils Equal, Pupils Reactive, EOMI, Mucous Membr. Moist/[place] Neck: Supple, Trachea Midline, No JVD Lungs: Normal Respiratory Effort, Decreased Breath Sounds, Rales, Rhonchi, Wheezing Cardiovascular: Regular Rate, Regular Rhythm, Murmurs GI/Abdominal Exam: Normal Bowel Sounds, Soft, Non-Tender, No Distention (Male) Exam: Deferred Back Exam: Normal Inspection Extremities: Non-Tender, Pedal Edema Skin: Warm, Dry, Intact, Ecchymosis Neurological: No New Focal Deficit, Normal Speech Psy/Mental Status: Alert, Normal Affect, Normal Mood - Problem List & Annotations (1) Pneumonia SNOMED Code(s): 981570053 Code(s): J18.9 - PNEUMONIA, UNSPECIFIED ORGANISM Status: Acute Priority: High Qualifiers: Pneumonia type: due to unspecified organism Laterality: unspecified laterality Lung location: unspecified part of lung Qualified Code(s): J18.9 - Pneumonia, unspecified organism Annotation/Comment:: (2) Anemia SNOMED Code(s): 621313709 Code(s): D64.9 - ANEMIA, UNSPECIFIED Status: Chronic Priority: Low Qualifiers: Anemia type: other cause Other causes of anemia: chronic disease, other Qualified Code(s): D63.8 - Anemia in other chronic diseases classified elsewhere (3) COPD (chronic obstructive pulmonary disease) SNOMED Code(s): 25834140 Code(s): J44.9 - CHRONIC OBSTRUCTIVE PULMONARY DISEASE, UNSPECIFIED Status : Chronic Priority: High Qualifiers: COPD type: COPD with acute exacerbation Qualified Code(s): J44.1 - Chronic obstructive pulmonary disease with (acute) exacerbation (4) Chronic respiratory failure with hypoxia SNOMED Code(s): 572908484 Code(s): J96.11 - CHRONIC RESPIRATORY FAILURE WITH HYPOXIA Status: Chronic Priority: Medium (5) Leukocytosis SNOMED Code(s): 765814105, 768295181 Code(s): D72.829 - ELEVATED WHITE BLOOD CELL COUNT, UNSPECIFIED Status: Chronic Priority: Medium Qualifiers: Leukocytosis type: unspecified Qualified Code(s): D72.829 - Elevated white blood cell count, unspecified (6) CHF, Congestive heart failure SNOMED Code(s): 78660385 Code(s): I50.9 - HEART FAILURE, UNSPECIFIED Status: Chronic Priority: High (7) Chronic GERD SNOMED Code(s): 299367116, 711415908 Code(s): K21.9 - GASTRO-ESOPHAGEAL REFLUX DISEASE WITHOUT ESOPHAGITIS Status: Chronic Priority: Medium (8) Chronic cerebral ischemia SNOMED Code(s): 130235304 Code(s): I67.82 - CEREBRAL ISCHEMIA Status: Chronic Priority: Medium (9) Chronic diastolic (congestive) heart failure SNOMED Code(s): 170221778, 534066517 Code(s): I50.32 - CHRONIC DIASTOLIC (CONGESTIVE) HEART FAILURE Status: Chronic Priority: Medium (10) Chronic kidney disease (CKD) SNOMED Code(s): 025904036 Code(s): N18.9 - CHRONIC KIDNEY DISEASE, UNSPECIFIED Status: Chronic Priority: Low Qualifiers: Chronic kidney disease stage: unspecified stage Qualified Code(s): N18.9 - Chronic kidney disease, unspecified (11) Comfort measures only status SNOMED Code(s): 95336121206128 Code(s): Z51.5 - ENCOUNTER FOR PALLIATIVE CARE Status: Chronic Priority: Medium (12) Coronary artery disease SNOMED Code(s): 51017220 Code(s): I25.10 - ATHSCL HEART DISEASE OF [place] CORONARY ARTERY W/O ANG PCTRS Status: Chronic Priority: Medium Qualifiers: Coronary Disease-Associated Artery/Lesion type: [place] artery [place] vs. transplanted heart: [place] heart Associated angina: without angina Qualified Code(s): I25.10 - Atherosclerotic heart disease of [place] coronary artery without angina pectoris (13) DNI (do not intubate) SNOMED Code(s): 242898254 Code(s): Z78.9 - OTHER SPECIFIED HEALTH STATUS Status: Chronic (14) DNR (do not resuscitate) Status: Chronic (15) Diabetes mellitus SNOMED Code(s): 77128074 Code(s): E11.9 - TYPE 2 DIABETES MELLITUS WITHOUT COMPLICATIONS Status: Chronic Priority: Medium (16) Dyslipidemia SNOMED Code(s): 588470607 Code(s): E78.5 - HYPERLIPIDEMIA, UNSPECIFIED Status: Chronic Priority: Medium (17) Emphysema lung SNOMED Code(s): 70709489 Code(s): J43.9 - EMPHYSEMA, UNSPECIFIED Status: Chronic Qualifiers: Emphysema type: centrilobular Qualified Code(s): J43.2 - Centrilobular emphysema (18) Generalized weakness SNOMED Code(s): 72980769 Code(s): R53.1 - WEAKNESS Status: Chronic (19) Gout SNOMED Code(s): 68478032 Code(s): M10.9 - GOUT, UNSPECIFIED Status: Chronic Priority: Low Qualifiers: Gout site: multiple sites Gout etiology: due to renal impairment Chronicity: chronic Presence of tophus: without tophus Qualified Code(s): M1A.39X0 - Chronic gout due to renal impairment, multiple sites, without tophus (tophi) (20) HTN, Benign hypertension SNOMED Code(s): 34609773 Code(s): I10 - ESSENTIAL (PRIMARY) HYPERTENSION Status: Chronic Priority : Medium (21) Heart disease SNOMED Code(s): 79165182 Code(s): I51.9 - HEART DISEASE, UNSPECIFIED Status: Chronic Priority: High Annotation/Comment:: (22) Hemorrhoids SNOMED Code(s): 49589971 Code(s): K64.9 - UNSPECIFIED HEMORRHOIDS Status: Chronic Qualifiers: Hemorrhoid type: other Qualified Code(s): K64.8 - Other hemorrhoids (23) History of ESBL Klebsiella pneumoniae infection SNOMED Code(s): 312140712 Code(s): Z86.19 - PERSONAL HISTORY OF OTHER INFECTIOUS AND PARASITIC DISEASES Status: Chronic Priority: High (24) Hypoalbuminemia SNOMED Code(s): 736749580 Code(s): E88.09 - OTH DISORDERS OF PLASMA-PROTEIN METABOLISM, NEC Status: Chronic Priority: Medium (25) Hypomagnesemia SNOMED Code(s): 242549781 Code(s): E83.42 - HYPOMAGNESEMIA Status: Chronic Priority: Medium Onset Date: 06/29/16 (26) Neuropathy SNOMED Code(s): 910267694 Code(s): G62.9 - POLYNEUROPATHY, UNSPECIFIED Status: Chronic Priority: Medium (27) Obesity (BMI 30-39.9) SNOMED Code(s): 783847671, 496314711 Code(s): E66.9 - OBESITY, UNSPECIFIED Status: Chronic Priority: Medium (28) Obstructive sleep apnea on CPAP SNOMED Code(s): 79740434 Code(s): G47.33 - OBSTRUCTIVE SLEEP APNEA (ADULT) (PEDIATRIC); Z99.89 - DEPENDENCE ON OTHER ENABLING MACHINES AND DEVICES Status: Chronic Priority: Low Annotation/Comment:: (29) Old cerebrovascular accident (CVA) without late effect SNOMED Code(s): 888521627 Code(s): Z86.73 - PRSNL HX OF TIA (TIA), AND CEREB INFRC W/O RESID DEFICITS Status: Chronic Priority: Medium (30) Osteoarthritis SNOMED Code(s): 890893418 Code(s): M19.90 - UNSPECIFIED OSTEOARTHRITIS, UNSPECIFIED SITE Status: Chronic Priority: Medium (31) Oxygen dependent SNOMED Code(s): 645559794301 Code(s): Z99.81 - DEPENDENCE ON SUPPLEMENTAL OXYGEN Status: Chronic Priority: High (32) Physical deconditioning SNOMED Code(s): 30987487323532 Code(s): R53.81 - OTHER MALAISE Status: Chronic Priority: High (33) Thrombocytopenia SNOMED Code(s): 503806955 Code(s): D69.6 - THROMBOCYTOPENIA, UNSPECIFIED Status: Chronic Priority: High (34) Weakness generalized SNOMED Code(s): 88086671 Code(s): R53.1 - WEAKNESS Status: Chronic Priority: High - Problem List Review Problem List Initiated/Reviewed/Updated: Yes - My Orders Last 24 Hours: My Active Orders 01/25/19 05:11 Chest 2V [CR] Routine 01/25/19 07:00 GABAPENTIN, SERUM [REF] Routine MYCOPLASMA IGM RAPID [MREF] Routine 01/25/19 14:22 Discontinue Saline Lock [Peripheral IV Discontinue] [OM.PC] Routine 01/25/19 14:30 Ready for Discharge [RC] PER UNIT ROUTINE - Assessment Assessment:: as above - Plan Plan:: as above. Anticipate 2-3 additional days of inpatient care secondary to multiple chronic conditions as listed above. 01/23/2019 Patient feels better, but still with cough. Patient states his legs are still weak. Labs noted, WBC continues to be elevated. Patient continues to need IV antibiotics due to his recurrent pneumonia and hospitalizations. Patient has appointment with specialist next week in regards to his repeat infections. Recheck labs in the morning. Astrid Damon,VENUE COORDINATOR 01/24/19 Dsuty Seaman MD Continues to feel better. Less shortness of breath. Less weakness. Continue IV antibiotics. Discharge plans discussed. 01/25/19 Dusty Seaman MD Feels fine. Wanting to go back to [place] today. Stable and ready for discharge today.
--- NOTE | 2019-01-26 00:21 | PCM.DCSUM1 ---
Discharge Summary - Hospital Course Diagnosis: Stroke: No - Discharge Data Discharge Date: 01/25/19 Discharge Disposition: DC/Tfer to SNF 03 Condition: Fair - Discharge Diagnosis/Problem(s) (1) Pneumonia SNOMED Code(s): 029459137 ICD Code: J18.9 - PNEUMONIA, UNSPECIFIED ORGANISM Status: Acute Priority : High Problem Details: Qualifiers: Pneumonia type: due to unspecified organism Laterality: unspecified laterality Lung location: unspecified part of lung Qualified Code(s): J18.9 - Pneumonia, unspecified organism (2) Anemia SNOMED Code(s): 978610204 ICD Code: D64.9 - ANEMIA, UNSPECIFIED Status: Chronic Priority: Low Qualifiers: Anemia type: other cause Other causes of anemia: chronic disease, other Qualified Code(s): D63.8 - Anemia in other chronic diseases classified elsewhere (3) COPD (chronic obstructive pulmonary disease) SNOMED Code(s): 15214611 ICD Code: J44.9 - CHRONIC OBSTRUCTIVE PULMONARY DISEASE, UNSPECIFIED Status : Chronic Priority: High Qualifiers: COPD type: COPD with acute exacerbation Qualified Code(s): J44.1 - Chronic obstructive pulmonary disease with (acute) exacerbation (4) Chronic respiratory failure with hypoxia SNOMED Code(s): 251540642 ICD Code: J96.11 - CHRONIC RESPIRATORY FAILURE WITH HYPOXIA Status: Chronic Priority: Medium (5) Leukocytosis SNOMED Code(s): 306948079, 966141596 ICD Code: D72.829 - ELEVATED WHITE BLOOD CELL COUNT, UNSPECIFIED Status: Chronic Priority: Medium Qualifiers: Leukocytosis type: unspecified Qualified Code(s): D72.829 - Elevated white blood cell count, unspecified (6) CHF, Congestive heart failure SNOMED Code(s): 43300017 ICD Code: I50.9 - HEART FAILURE, UNSPECIFIED Status: Chronic Priority: High (7) Chronic GERD SNOMED Code(s): 680991704, 652277405 ICD Code: K21.9 - GASTRO-ESOPHAGEAL REFLUX DISEASE WITHOUT ESOPHAGITIS Status: Chronic Priority: Medium (8) Chronic cerebral ischemia SNOMED Code(s): 430927555 ICD Code: I67.82 - CEREBRAL ISCHEMIA Status: Chronic Priority: Medium (9) Chronic diastolic (congestive) heart failure SNOMED Code(s): 222473035, 407128697 ICD Code: I50.32 - CHRONIC DIASTOLIC (CONGESTIVE) HEART FAILURE Status: Chronic Priority: Medium (10) Chronic kidney disease (CKD) SNOMED Code(s): 297993651 ICD Code: N18.9 - CHRONIC KIDNEY DISEASE, UNSPECIFIED Status: Chronic Priority: Low Qualifiers: Chronic kidney disease stage: unspecified stage Qualified Code(s): N18.9 - Chronic kidney disease, unspecified (11) Comfort measures only status SNOMED Code(s): 28389042452115 ICD Code: Z51.5 - ENCOUNTER FOR PALLIATIVE CARE Status: Chronic Priority : Medium (12) Coronary artery disease SNOMED Code(s): 68189316 ICD Code: I25.10 - ATHSCL HEART DISEASE OF [place] CORONARY ARTERY W/O ANG PCTRS Status: Chronic Priority: Medium Qualifiers: Coronary Disease-Associated Artery/Lesion type: [place] artery [place] vs. transplanted heart: [place] heart Associated angina: without angina Qualified Code(s): I25.10 - Atherosclerotic heart disease of [place] coronary artery without angina pectoris (13) DNI (do not intubate) SNOMED Code(s): 451584861 ICD Code: Z78.9 - OTHER SPECIFIED HEALTH STATUS Status: Chronic (14) DNR (do not resuscitate) Status: Chronic (15) Diabetes mellitus SNOMED Code(s): 86097638 ICD Code: E11.9 - TYPE 2 DIABETES MELLITUS WITHOUT COMPLICATIONS Status: Chronic Priority: Medium (16) Dyslipidemia SNOMED Code(s): 547414714 ICD Code: E78.5 - HYPERLIPIDEMIA, UNSPECIFIED Status: Chronic Priority: Medium (17) Emphysema lung SNOMED Code(s): 87060957 ICD Code: J43.9 - EMPHYSEMA, UNSPECIFIED Status: Chronic Qualifiers: Emphysema type: centrilobular Qualified Code(s): J43.2 - Centrilobular emphysema (18) Generalized weakness SNOMED Code(s): 36090576 ICD Code: R53.1 - WEAKNESS Status: Chronic (19) Gout SNOMED Code(s): 66881184 ICD Code: M10.9 - GOUT, UNSPECIFIED Status: Chronic Priority: Low Qualifiers: Gout site: multiple sites Gout etiology: due to renal impairment Chronicity: chronic Presence of tophus: without tophus Qualified Code(s): M1A.39X0 - Chronic gout due to renal impairment, multiple sites, without tophus (tophi) (20) HTN, Benign hypertension SNOMED Code(s): 30381630 ICD Code: I10 - ESSENTIAL (PRIMARY) HYPERTENSION Status: Chronic Priority : Medium (21) Heart disease SNOMED Code(s): 72192306 ICD Code: I51.9 - HEART DISEASE, UNSPECIFIED Status: Chronic Priority: High Problem Details: (22) Hemorrhoids SNOMED Code(s): 40070065 ICD Code: K64.9 - UNSPECIFIED HEMORRHOIDS Status: Chronic Qualifiers: Hemorrhoid type: other Qualified Code(s): K64.8 - Other hemorrhoids (23) History of ESBL Klebsiella pneumoniae infection SNOMED Code(s): 036896455 ICD Code: Z86.19 - PERSONAL HISTORY OF OTHER INFECTIOUS AND PARASITIC DISEASES Status: Chronic Priority: High (24) Hypoalbuminemia SNOMED Code(s): 393295070 ICD Code: E88.09 - OTH DISORDERS OF PLASMA-PROTEIN METABOLISM, NEC Status: Chronic Priority: Medium (25) Hypomagnesemia SNOMED Code(s): 232811678 ICD Code: E83.42 - HYPOMAGNESEMIA Status: Chronic Priority: Medium Onset Date: 06/29/16 (26) Neuropathy SNOMED Code(s): 727631223 ICD Code: G62.9 - POLYNEUROPATHY, UNSPECIFIED Status: Chronic Priority: Medium (27) Obesity (BMI 30-39.9) SNOMED Code(s): 897725370, 573048790 ICD Code: E66.9 - OBESITY, UNSPECIFIED Status: Chronic Priority: Medium (28) Obstructive sleep apnea on CPAP SNOMED Code(s): 26502524 ICD Code: G47.33 - OBSTRUCTIVE SLEEP APNEA (ADULT) (PEDIATRIC); Z99.89 - DEPENDENCE ON OTHER ENABLING MACHINES AND DEVICES Status: Chronic Priority: Low Problem Details: (29) Old cerebrovascular accident (CVA) without late effect SNOMED Code(s): 065956518 ICD Code: Z86.73 - PRSNL HX OF TIA (TIA), AND CEREB INFRC W/O RESID DEFICITS Status: Chronic Priority: Medium (30) Osteoarthritis SNOMED Code(s): 574530588 ICD Code: M19.90 - UNSPECIFIED OSTEOARTHRITIS, UNSPECIFIED SITE Status: Chronic Priority: Medium (31) Oxygen dependent SNOMED Code(s): 337822514431 ICD Code: Z99.81 - DEPENDENCE ON SUPPLEMENTAL OXYGEN Status: Chronic Priority: High (32) Physical deconditioning SNOMED Code(s): 45805431193689 ICD Code: R53.81 - OTHER MALAISE Status: Chronic Priority: High (33) Thrombocytopenia SNOMED Code(s): 934263450 ICD Code: D69.6 - THROMBOCYTOPENIA, UNSPECIFIED Status: Chronic Priority : High (34) Weakness generalized SNOMED Code(s): 21115400 ICD Code: R53.1 - WEAKNESS Status: Chronic Priority: High - Patient Instructions Diet: Diabetic Diet Activity: As Tolerated Driving: Do Not Drive Showering/Bathing: May Shower Other/Special Instructions: PT-OT referral, evaluate and treat. CBC,sed rate, CMP, CRP next week. - Discharge Plan *PRESCRIPTION DRUG MONITORING PROGRAM REVIEWED*: Not Applicable *COPY OF PRESCRIPTION DRUG MONITORING REPORT IN PATIENT SG: Not Applicable Prescriptions/Med Rec: Azithromycin [Zithromax] 500 mg PO DAILY #6 tablet predniSONE [Prednisone] 40 mg PO DAILY #30 tablet Home Medications: Home Meds Arformoterol [Brovana] 2 ml INH BID 05/04/14 [History] Gabapentin [Neurontin] 300 mg PO TID 05/04/14 [History] Multivitamin [Multivitamins] 1 tab PO DAILY 05/04/14 [History] Omeprazole 20 mg PO BID 05/04/14 [History] Isosorbide Mononitrate [Imdur] 60 mg PO DAILY 10/26/16 [History] Allopurinol [Zyloprim] 300 mg PO QAM 06/13/17 [History] Cholecalciferol (Vitamin D3) [Vitamin D3] 1,000 unit PO DAILY 06/13/17 [History] Docusate Sodium [Colace] 100 mg PO BID 12/28/17 [History] Acetaminophen [Tylenol] 650 mg PO Q4H PRN 05/13/18 [History] Albuterol/Ipratropium [DuoNeb 3.0-0.5 MG/3 ML] 3 ml NEB QID 05/13/18 [History] Magnesium Oxide [Magnesium] 400 mg PO BID 05/13/18 [History] Tamsulosin HCl [Flomax] 0.4 mg PO DAILY 06/13/18 [History] Insulin Detemir [Levemir Flextouch] 20 units SUBCUT BEDTIME #1 06/19/18 [Rx] Insulin Aspart [NovoLOG] 8 unit SQ TID@0800,1200,1800 09/03/18 [History] Polyvinyl Alcohol [LiquiTears 1.4% Ophth Soln] 1 ml EYEBOTH TID@0800,1200,2000 09/03/18 [History] Carvedilol [Coreg] 12.5 mg PO BID 12/26/18 [History] Cyanocobalamin (Vitamin B-12) [B-12] 1,000 mcg PO DAILY 12/26/18 [History] Furosemide 40 mg PO BID 12/26/18 [History] Hydrocortisone [Hydrocortisone 2.5% Crm] 1 applicful RECTAL BID PRN 12/26/18 [ History] Potassium Chloride [Potassium Chloride Solution] 20 meq PO DAILY 12/26/18 [ History] guaiFENesin/Dextromethorphan [Safetussin DM] 10 ml PO QID 12/26/18 [History] Iron,Carbonyl/Ascorbic Acid [Vitron-C Tablet] 1 each PO BID 01/21/19 [History] Loratadine [Claritin] 10 mg PO DAILY 01/21/19 [History] Hydrocortisone Acetate [Anucort-HC] 25 mg RECTAL Q24H PRN 01/22/19 [History] Azithromycin [Zithromax] 500 mg PO DAILY #6 tablet 01/25/19 [Rx] predniSONE [Prednisone] 40 mg PO DAILY #30 tablet 01/25/19 [Rx] Oxygen Therapy Mode: Nasal Cannula Oxygen Flow Rate (L/min): 2 Forms: ED Department Discharge Referrals: Aixa Veronica MD [Primary Care Provider] - - Discharge Summary/Plan Comment DC Time >30 min.: No - Patient Data Vitals - Most Recent: Last Vital Signs Temp 96.8 F 01/25/19 12:00 Pulse 89 01/25/19 12:00 Resp 19 01/25/19 12:00 BP 139/78 01/25/19 12:00 Pulse Ox 95 01/25/19 15:00 Weight - Most Recent: 270 lb I&O - Last 24 hours: Intake & Output 01/25/19 01/25/19 01/26/19 14:59 22:59 06:59 Intake Total 600 Balance 600 Lab Results - Last 24 hrs: Laboratory Results - last 24 hr 01/24/19 01/25/19 01/25/19 Range/Units 19:07 07:00 07:00 WBC 9.7 (4.0-10.2) K/uL RBC 3.08 L (4.33-5.41) M/uL Hgb 10.9 L (13.1-16.8) g/dL Hct 33.2 L (39.0-49.0) % MCV 107.8 H (84.0-98.0) fL MCH 35.4 H (28.2-33.3) pg MCHC 32.8 (31.7-36.0) g/dL RDW 18.5 H (11.2-14.1) % Plt Count 178 (150-350) K/uL Neut % (Auto) 64.9 (45.0-80.0) % Lymph % (Auto) 23.7 (10.0-50.0) % [place] % (Auto) 11.0 (2.0-14.0) % Eos % (Auto) 0.3 (0.0-5.0) % Baso % (Auto) 0.1 (0.0-2.0) % Neut # (Auto) 6.31 (1.40-7.00) K/uL Lymph # (Auto) 2.30 (0.50-3.50) K/uL [place] # (Auto) 1.07 H (0.00-1.00) K/uL Eos # (Auto) 0.03 (0.00-0.50) K/uL Baso # (Auto) 0.01 (0.00-0.20) K/uL ESR 93 H (0-20) mm/hr VBG pH (7.31-7.41) VBG pCO2 (41-51) mmHG VBG pO2 mmHG VBG HCO3 (23-28) mmol/L VBG Total CO2 mmol/L VBG O2 Saturation % VBG Base Excess ((-2)-3) mmol/L O2 Delivery Device Sodium 138 (136-145) mmol/L Potassium 4.0 (3.5-5.1) mmol/L Chloride 97 L (98-107) mmol/L Carbon Dioxide 32.2 H (21.0-32.0) mmol/L BUN 39 H (7-18) mg/dL Creatinine 1.04 (0.51-1.17) mg/dL Est Cr Clr Drug Dosing 58.49 mL/min Estimated GFR (MDRD) > 60 mL/min Glucose 158 H (74-106) mg/dL POC Glucose 340 H* (65-110) mg/dl Lactic Acid (0.4-2.0) mmol/L Uric Acid 6.8 (2.6-7.2) mg/dL Calcium 9.1 (8.5-10.1) mg/dL Magnesium 2.2 (1.8-2.4) mg/dL Total Bilirubin 0.2 (0.2-1.0) mg/dL AST 19 (15-37) U/L ALT 36 (12-78) U/L Alkaline Phosphatase 63 (46-116) IU/L C-Reactive Protein 4.2 H (<=0.9) mg/dL Total Protein 6.1 L (6.4-8.2) g/dL Albumin 2.7 L (3.4-5.0) g/dL 01/25/19 01/25/19 01/25/19 Range/Units 07:00 07:00 07:38 WBC (4.0-10.2) K/uL RBC (4.33-5.41) M/uL Hgb (13.1-16.8) g/dL Hct (39.0-49.0) % MCV (84.0-98.0) fL MCH (28.2-33.3) pg MCHC (31.7-36.0) g/dL RDW (11.2-14.1) % Plt Count (150-350) K/uL Neut % (Auto) (45.0-80.0) % Lymph % (Auto) (10.0-50.0) % [place] % (Auto) (2.0-14.0) % Eos % (Auto) (0.0-5.0) % Baso % (Auto) (0.0-2.0) % Neut # (Auto) (1.40-7.00) K/uL Lymph # (Auto) (0.50-3.50) K/uL [place] # (Auto) (0.00-1.00) K/uL Eos # (Auto) (0.00-0.50) K/uL Baso # (Auto) (0.00-0.20) K/uL ESR (0-20) mm/hr VBG pH 7.43 H (7.31-7.41) VBG pCO2 49 (41-51) mmHG VBG pO2 49 mmHG VBG HCO3 33 H (23-28) mmol/L VBG Total CO2 34 mmol/L VBG O2 Saturation 85 % VBG Base Excess 8 H ((-2)-3) mmol/L O2 Delivery Device Nasal cannula Sodium (136-145) mmol/L Potassium (3.5-5.1) mmol/L Chloride (98-107) mmol/L Carbon Dioxide (21.0-32.0) mmol/L BUN (7-18) mg/dL Creatinine (0.51-1.17) mg/dL Est Cr Clr Drug Dosing mL/min Estimated GFR (MDRD) mL/min Glucose (74-106) mg/dL POC Glucose 144 H (65-110) mg/dl Lactic Acid 2.7 H (0.4-2.0) mmol/L Uric Acid (2.6-7.2) mg/dL Calcium (8.5-10.1) mg/dL Magnesium (1.8-2.4) mg/dL Total Bilirubin (0.2-1.0) mg/dL AST (15-37) U/L ALT (12-78) U/L Alkaline Phosphatase (46-116) IU/L C-Reactive Protein (<=0.9) mg/dL Total Protein (6.4-8.2) g/dL Albumin (3.4-5.0) g/dL 01/25/19 Range/Units 11:54 WBC (4.0-10.2) K/uL RBC (4.33-5.41) M/uL Hgb (13.1-16.8) g/dL Hct (39.0-49.0) % MCV (84.0-98.0) fL MCH (28.2-33.3) pg MCHC (31.7-36.0) g/dL RDW (11.2-14.1) % Plt Count (150-350) K/uL Neut % (Auto) (45.0-80.0) % Lymph % (Auto) (10.0-50.0) % [place] % (Auto) (2.0-14.0) % Eos % (Auto) (0.0-5.0) % Baso % (Auto) (0.0-2.0) % Neut # (Auto) (1.40-7.00) K/uL Lymph # (Auto) (0.50-3.50) K/uL [place] # (Auto) (0.00-1.00) K/uL Eos # (Auto) (0.00-0.50) K/uL Baso # (Auto) (0.00-0.20) K/uL ESR (0-20) mm/hr VBG pH (7.31-7.41) VBG pCO2 (41-51) mmHG VBG pO2 mmHG VBG HCO3 (23-28) mmol/L VBG Total CO2 mmol/L VBG O2 Saturation % VBG Base Excess ((-2)-3) mmol/L O2 Delivery Device Sodium (136-145) mmol/L Potassium (3.5-5.1) mmol/L Chloride (98-107) mmol/L Carbon Dioxide (21.0-32.0) mmol/L BUN (7-18) mg/dL Creatinine (0.51-1.17) mg/dL Est Cr Clr Drug Dosing mL/min Estimated GFR (MDRD) mL/min Glucose (74-106) mg/dL POC Glucose 343 H* (65-110) mg/dl Lactic Acid (0.4-2.0) mmol/L Uric Acid (2.6-7.2) mg/dL Calcium (8.5-10.1) mg/dL Magnesium (1.8-2.4) mg/dL Total Bilirubin (0.2-1.0) mg/dL AST (15-37) U/L ALT (12-78) U/L Alkaline Phosphatase (46-116) IU/L C-Reactive Protein (<=0.9) mg/dL Total Protein (6.4-8.2) g/dL Albumin (3.4-5.0) g/dL EMERY Results - Last 24 hrs: Microbiology 01/21/19 12:02 Aerobic Blood Culture - Preliminary Blood - Venous - Lab Draw NO GROWTH AFTER 4 DAYS Anaerobic Blood Culture - Preliminary NO GROWTH AFTER 4 DAYS 01/21/19 11:45 Aerobic Blood Culture - Preliminary Blood - Venous NO GROWTH AFTER 4 DAYS Anaerobic Blood Culture - Preliminary NO GROWTH AFTER 4 DAYS Med Orders - Current: Current Medications Discontinued Medications Acetaminophen (Tylenol) 650 mg PO Q4H PRN PRN Reason: Pain Albuterol/Ipratropium (Duoneb 3.0-0.5 Mg/3 Ml) 3 ml NEB ONETIME ONE Stop: 01/21/19 11:42 Last Admin: 01/21/19 11:59 Dose: 3 ml Albuterol/Ipratropium (Duoneb 3.0-0.5 Mg/3 Ml) 3 ml NEB QID [facility] Last Admin: 01/25/19 12:06 Dose: 3 ml Allopurinol (Zyloprim) 300 mg PO QAM [facility] Last Admin: 01/25/19 07:42 Dose: 300 mg Arformoterol Tartrate (Brovana) 15 mcg INH BID [facility] Last Admin: 01/25/19 07:42 Dose: 15 mcg Artificial Tears (Liquitears 1.4% Ophth Soln) 0 ml EYEBOTH TID@0800,1200,2000 [facility] Last Admin: 01/25/19 12:06 Dose: 1 drop Azithromycin (Zithromax) 500 mg PO DAILY [facility] Last Admin: 01/25/19 07:43 Dose: 500 mg Budesonide (Pulmicort) 0.5 mg INH BID [facility] Last Admin: 01/25/19 07:41 Dose: 0.5 mg Carvedilol (Coreg) 12.5 mg PO BID [facility] Last Admin: 01/25/19 07:42 Dose: 12.5 mg Docusate Sodium (Colace) 100 mg PO BID [facility] Last Admin: 01/25/19 07:43 Dose: 100 mg Enoxaparin Sodium (Lovenox) 40 mg SUBCUT DAILY [facility] Last Admin: 01/24/19 08:33 Dose: 40 mg Furosemide (Lasix) 40 mg IVPUSH NOW ONE Stop: 01/21/19 11:42 Last Admin: 01/21/19 11:59 Dose: 40 mg Furosemide (Lasix) 20 mg IVPUSH BID [facility] Last Admin: 01/25/19 07:43 Dose: 20 mg Gabapentin (Neurontin) 300 mg PO TID [facility] Last Admin: 01/25/19 12:06 Dose: 300 mg Hydrocortisone (Proctozone-Hc 2.5% Crm) 0 gm TOP BID PRN PRN Reason: Hemorrhoids Last Admin: 01/22/19 20:28 Dose: 1 applic Azithromycin 500 mg/ Sodium (Chloride) 250 mls @ 250 mls/hr IV Q24H [facility] Last Admin: 01/21/19 12:58 Dose: 250 mls/hr Ceftriaxone Sodium 1 gm/ (Sodium Chloride) 100 mls @ 200 mls/hr IV Q24H [facility] Last Admin: 01/21/19 12:58 Dose: 200 mls/hr Azithromycin 500 mg/ Sodium (Chloride) 250 mls @ 250 mls/hr IV Q24H [facility] Last Admin: 01/24/19 11:59 Dose: 250 mls/hr Ceftriaxone Sodium 1 gm/ (Sodium Chloride) 100 mls @ 200 mls/hr IV Q24H [facility] Last Admin: 01/25/19 13:51 Dose: 200 mls/hr Insulin Glargine (Lantus) 20 unit SUBCUT BEDTIME [facility] Last Admin: 01/24/19 19:08 Dose: 20 units Insulin Human Lispro (Humalog) 8 unit SUBCUT TID@0800,1200,1800 [facility] Insulin Human Lispro (Humalog) 0 unit SUBCUT TID@0800,1200,1800 [facility]; Protocol Last Admin: 01/25/19 12:05 Dose: 12 units Insulin Human Lispro (Humalog) 18 unit SUBCUT ONETIME ONE Stop: 01/22/19 17:43 Insulin Human Lispro (Humalog) 18 unit SUBCUT ONETIME ONE Stop: 01/21/19 17:43 Last Admin: 01/21/19 18:24 Dose: 18 unit Insulin Human Lispro (Humalog) 15 unit SUBCUT ONETIME ONE Stop: 01/21/19 19:48 Last Admin: 01/21/19 20:07 Dose: 15 units Insulin Human Lispro (Humalog) 15 unit SUBCUT BIDAC ONE Stop: 01/21/19 22:40 Last Admin: 01/21/19 22:56 Dose: 15 units Insulin Human Lispro (Humalog) 0 unit SUBCUT ONETIME ONE Stop: 01/22/19 01:12 Last Admin: 01/22/19 01:27 Dose: 15 units Iopamidol (Isovue-370 (76%)) 100 ml IVPUSH ONETIME ONE Stop: 01/21/19 13:51 Last Admin: 01/21/19 14:36 Dose: 100 ml Isosorbide Mononitrate (Imdur) 60 mg PO DAILY [facility] Last Admin: 01/25/19 07:42 Dose: 60 mg Loratadine (Claritin) 10 mg PO DAILY [facility] Last Admin: 01/25/19 07:42 Dose: 10 mg Magnesium Oxide (Magnesium Oxide) 400 mg PO BID [facility] Last Admin: 01/25/19 07:42 Dose: 400 mg Methylprednisolone Sodium Succinate (Solu-Medrol) 125 mg IVPUSH ONETIME ONE Stop: 01/21/19 11:43 Last Admin: 01/21/19 11:59 Dose: 125 mg Methylprednisolone Sodium Succinate (Solu-Medrol) 40 mg IVPUSH DAILY [facility] Last Admin: 01/25/19 07:43 Dose: 40 mg Omeprazole (Omeprazole) 20 mg PO BID [facility] Last Admin: 01/25/19 07:42 Dose: 20 mg Potassium Chloride (Potassium Chloride Solution) 20 meq PO DAILY [facility] Last Admin: 01/25/19 07:42 Dose: 20 meq Sodium Chloride (Saline Flush) 10 ml FLUSH ASDIRECTED PRN PRN Reason: Keep Vein Open Last Admin: 01/25/19 13:51 Dose: 10 ml Sodium Chloride (Saline Flush) 10 ml FLUSH Q12HR [facility] Last Admin: 01/25/19 07:43 Dose: 10 ml Tamsulosin HCl (Flomax) 0.4 mg PO DAILY [facility] Last Admin: 01/25/19 07:43 Dose: 0.4 mg
== END 2019-01-25 15:30 | DRG 194 ==
LOC: LL.ED 11:36 → LL.MS 15:19
PROVIDERS: ADMIT Emergency Medicine; ATTEND Family Medicine
DX: J44.0 Chronic obstructive pulmonary disease with (acute) lower respiratory infection (principal); J18.9 Pneumonia, unspecified organism; J96.11 Chronic respiratory failure with hypoxia; I67.82 Cerebral ischemia; I42.9 Cardiomyopathy, unspecified; J44.1 Chronic obstructive pulmonary disease with (acute) exacerbation; I13.0 Hypertensive heart and chronic kidney disease with heart failure and stage 1 through stage 4 chronic kidney disease, or unspecified chronic kidney disease; I50.32 Chronic diastolic (congestive) heart failure; D63.8 Anemia in other chronic diseases classified elsewhere; D72.829 Elevated white blood cell count, unspecified; Z79.4 Long term (current) use of insulin; Z88.8 Allergy status to other drugs, medicaments and biological substances; Z51.5 Encounter for palliative care; Z66 Do not resuscitate; E78.5 Hyperlipidemia, unspecified; J43.2 Centrilobular emphysema; K64.9 Unspecified hemorrhoids; G62.9 Polyneuropathy, unspecified; E66.9 Obesity, unspecified; G47.33 Obstructive sleep apnea (adult) (pediatric); H54.7 Unspecified visual loss; H91.92 Unspecified hearing loss, left ear; Z79.899 Other long term (current) drug therapy; D69.6 Thrombocytopenia, unspecified; E11.51 Type 2 diabetes mellitus with diabetic peripheral angiopathy without gangrene; E11.22 Type 2 diabetes mellitus with diabetic chronic kidney disease; R79.89 Other specified abnormal findings of blood chemistry; H35.30 Unspecified macular degeneration; E11.42 Type 2 diabetes mellitus with diabetic polyneuropathy; M1A.39X0 Chronic gout due to renal impairment, multiple sites, without tophus (tophi); N18.9 Chronic kidney disease, unspecified; M81.0 Age-related osteoporosis without current pathological fracture; E55.9 Vitamin D deficiency, unspecified; Z90.89 Acquired absence of other organs; Z86.19 Personal history of other infectious and parasitic diseases; Z98.41 Cataract extraction status, right eye; Z98.42 Cataract extraction status, left eye; Z90.79 Acquired absence of other genital organ(s); E11.319 Type 2 diabetes mellitus with unspecified diabetic retinopathy without macular edema; I25.10 Atherosclerotic heart disease of native coronary artery without angina pectoris; Z86.73 Personal history of transient ischemic attack (TIA), and cerebral infarction without residual deficits; N18.3 Chronic kidney disease, stage 3 (moderate); Z68.38 Body mass index [BMI] 38.0-38.9, adult; E78.00 Pure hypercholesterolemia, unspecified; Z99.81 Dependence on supplemental oxygen; M19.90 Unspecified osteoarthritis, unspecified site; E11.21 Type 2 diabetes mellitus with diabetic nephropathy; M10.9 Gout, unspecified; N40.0 Benign prostatic hyperplasia without lower urinary tract symptoms; K21.9 Gastro-esophageal reflux disease without esophagitis
CPT/HCPCS: 36415; 71045; 71275; 80053; 81001; 83605; 83735; 83880; 85025; 85379; 87040 ×2; 96365; 96367; 96375; 99285; J0456; J0696; J1940; J2930; J7050 ×2; Q9967; 71046; 80048; 80171; 82803; 82962; 84550; 85652; 86140; 86738; 94640; A9270-GY; J1650; J1815; J1815-GY; J2920; J7620-GY

== ENCOUNTER 2019-02-19 08:49 | Inpatient (IN) | payer MEDICARE, BC ==
[2019-02-19] MEDS ORDERED: HYDROmorphone 1 MG/ML Syringe IVPUSH PRN (09:22)
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
[2019-02-19] MEDS ORDERED: Lactated Ringers 1,000 ML IV SCH (11:45)
[2019-02-19] MEDS ORDERED: Ondansetron 4 MG Tab.DIS PO PRN (12:00)
[2019-02-19] MEDS: Piperacillin/Tazobactam 3.375 GM in Sodium Chloride 0.9% 100 ML IV SCH ×3 (12:53→23:49)
[2019-02-19] MEDS: Insulin Lispro 100 Units/ML 3 ML Vial SUBCUT SCH ×2 (12:56→18:35)
[2019-02-19] MEDS: Albuterol/Ipratropium 3.0-0.5 MG/3 ML Neb Soln NEB SCH ×3 (12:56→20:39)
[2019-02-19] MEDS: guaiFENesin/Dextromethorphan 100-10 MG/5 ML Soln 10 ML Cup PO SCH ×3 (12:56→20:37)
[2019-02-19] MEDS: Gabapentin 300 MG Cap PO SCH ×2 (12:58→18:34)
[2019-02-19] MEDS: Furosemide 40 MG Tab PO SCH (13:28)
[2019-02-19] MEDS: Levofloxacin/Dextrose 5%-Water 500 MG in Premix Bag 1 BAG IV SCH (13:28)
[2019-02-19] MEDS: Sodium Chloride 0.9% 10 ML Syringe FLUSH PRN ×3 (13:28→23:49)
[2019-02-19] MEDS: Omeprazole 20 MG Cap.CR PO SCH (18:33)
[2019-02-19] MEDS: Docusate Sodium 100 MG Cap PO SCH (18:33)
[2019-02-19] MEDS: Carvedilol 12.5 MG Tab PO SCH (18:34)
[2019-02-19] MEDS: Magnesium Oxide 400 MG Tab PO SCH (18:34)
[2019-02-19] MEDS: Hydrocortisone 2.5% Crm 30 GM Tube TOP SCH (18:35)
[2019-02-19] MEDS: Arformoterol 15 MCG/2 ML Neb Soln INH SCH (18:35)
[2019-02-19] MEDS: Insulin Glarg,Human.Rec.Analog 100 UNIT/ML ML SUBCUT SCH (20:40)
[2019-02-19] MEDS: Acetaminophen/HYDROcodone 325-5 MG Tab PO PRN (20:54)
[2019-02-20] MEDS: Acetaminophen 325 MG Tab PO PRN ×3 (04:06→17:25)
[2019-02-20] MEDS: Sodium Chloride 0.9% 10 ML Syringe FLUSH PRN ×6 (05:38→21:14)
[2019-02-20] MEDS: Piperacillin/Tazobactam 3.375 GM in Sodium Chloride 0.9% 100 ML IV SCH ×3 (05:38→17:21)
[2019-02-20] MEDS: Albuterol/Ipratropium 3.0-0.5 MG/3 ML Neb Soln NEB SCH ×4 (07:10→19:39)
[2019-02-20] MEDS: Hydrocortisone 2.5% Crm 30 GM Tube TOP SCH (07:20)
[2019-02-20] MEDS ORDERED: Hydrocortisone 2.5% Crm 30 GM Tube TOP PRN (07:22)
[2019-02-20] MEDS: Polyvinyl Alcohol 1.4% Ophth Soln 15 ML Bottle EYEBOTH SCH (07:22)
[2019-02-20] MEDS: Potassium Chloride 10% 20 MEQ/15 ML Soln 15 ML UD Cup PO SCH (07:23)
[2019-02-20] MEDS: Arformoterol 15 MCG/2 ML Neb Soln INH SCH ×2 (07:23→19:39)
[2019-02-20] MEDS: guaiFENesin/Dextromethorphan 100-10 MG/5 ML Soln 10 ML Cup PO SCH ×4 (07:23→19:39)
[2019-02-20] MEDS: Enoxaparin 40 MG/0.4 ML Syringe SUBCUT SCH (07:24)
[2019-02-20] MEDS: Multivitamin Tab PO SCH (07:25)
[2019-02-20] MEDS: Omeprazole 20 MG Cap.CR PO SCH ×2 (07:25→17:25)
[2019-02-20] MEDS: Allopurinol 100 MG Tab PO SCH (07:25)
[2019-02-20] MEDS: Magnesium Oxide 400 MG Tab PO SCH ×2 (07:25→17:25)
[2019-02-20] MEDS: Cyanocobalamin (Vitamin B12) 1,000 MCG Tab PO SCH (07:26)
[2019-02-20] MEDS: Cholecalciferol (Vitamin D3) 25 MCG Tab PO SCH (07:26)
[2019-02-20] MEDS: Loratadine 10 MG Tab PO SCH (07:26)
[2019-02-20] MEDS: Isosorbide Mononitrate 60 MG Tab.ER PO SCH (07:26)
[2019-02-20] MEDS: Gabapentin 300 MG Cap PO SCH ×3 (07:27→17:25)
[2019-02-20] MEDS: Furosemide 40 MG Tab PO SCH ×2 (07:27→13:07)
[2019-02-20] MEDS: Docusate Sodium 100 MG Cap PO SCH ×2 (07:27→17:25)
[2019-02-20] MEDS: Insulin Lispro 100 Units/ML 3 ML Vial SUBCUT SCH ×3 (07:28→17:22)
[2019-02-20] MEDS: Carvedilol 12.5 MG Tab PO SCH ×2 (07:30→17:26)
[2019-02-20] MEDS ORDERED: Tamsulosin 0.4 MG Cap.ER PO SCH (08:00)
[2019-02-20] MEDS ORDERED: predniSONE 20 MG Tab PO SCH (08:00)
[2019-02-20] MEDS: Acetaminophen/HYDROcodone 325-5 MG Tab PO PRN ×2 (11:55→20:03)
[2019-02-20] MEDS: Levofloxacin/Dextrose 5%-Water 500 MG in Premix Bag 1 BAG IV SCH (13:07)
[2019-02-20] MEDS: metroNIDAZOLE/Normal Saline 500 MG in Premix Bag 1 BAG IV SCH ×2 (15:17→21:11)
[2019-02-20] MEDS: Albuterol/Ipratropium 3.0-0.5 MG/3 ML Neb Soln NEB PRN (17:32)
[2019-02-20] MEDS: Insulin Glarg,Human.Rec.Analog 100 UNIT/ML ML SUBCUT SCH (19:39)
--- NOTE | 2019-02-20 21:52 | PCM.PN ---
- General Info Date of Service: 02/20/19 Functional Status: Reports: Tolerating Diet - Review of Systems General: Reports: Fever, Weakness, Fatigue HEENT: Reports: No Symptoms Pulmonary: Reports: Cough Cardiovascular: Reports: No Symptoms Gastrointestinal: Reports: No Symptoms Genitourinary: Reports: Retention Musculoskeletal: Reports: Back Pain Skin: Reports: Bruising Neurological: Reports: Weakness Psychiatric: Reports: No Symptoms - Patient Data Vitals - Most Recent: Last Vital Signs Temp 98.1 F 02/20/19 19:56 Pulse 89 02/20/19 19:56 Resp 18 02/20/19 19:56 BP 122/72 02/20/19 19:56 Pulse Ox 95 02/20/19 19:56 Weight - Most Recent: 270 lb I&O - Last 24 Hours: Intake & Output 02/20/19 02/20/19 02/20/19 06:59 14:59 22:59 Intake Total 800 860 850 Output Total 250 200 Balance 550 660 850 Lab Results Last 24 Hours: Laboratory Results - last 24 hr 02/20/19 02/20/19 02/20/19 Range/Units 06:53 06:53 06:53 WBC 14.6 H (4.0-10.2) K/uL RBC 2.94 L (4.33-5.41) M/uL Hgb 10.8 L (13.1-16.8) g/dL Hct 32.3 L (39.0-49.0) % MCV 109.9 H (84.0-98.0) fL MCH 36.7 H (28.2-33.3) pg MCHC 33.4 (31.7-36.0) g/dL RDW 17.8 H (11.2-14.1) % Plt Count 88 L (150-350) K/uL Neut % (Auto) 69.5 (45.0-80.0) % Lymph % (Auto) 17.1 (10.0-50.0) % [place] % (Auto) 12.6 (2.0-14.0) % Eos % (Auto) 0.5 (0.0-5.0) % Baso % (Auto) 0.3 (0.0-2.0) % Neut # (Auto) 10.13 H (1.40-7.00) K/uL Lymph # (Auto) 2.50 (0.50-3.50) K/uL [place] # (Auto) 1.84 H (0.00-1.00) K/uL Eos # (Auto) 0.07 (0.00-0.50) K/uL Baso # (Auto) 0.05 (0.00-0.20) K/uL Sodium 135 L (136-145) mmol/L Potassium 3.9 (3.5-5.1) mmol/L Chloride 98 (98-107) mmol/L Carbon Dioxide 29.5 (21.0-32.0) mmol/L BUN 36 H (7-18) mg/dL Creatinine 1.58 H (0.51-1.17) mg/dL Est Cr Clr Drug Dosing 40.32 mL/min Estimated GFR (MDRD) 42 mL/min Glucose 164 H (74-106) mg/dL POC Glucose (65-110) mg/dl Calcium 8.5 (8.5-10.1) mg/dL Total Bilirubin 0.8 (0.2-1.0) mg/dL AST 44 H (15-37) U/L ALT 54 (12-78) U/L Alkaline Phosphatase 106 (46-116) IU/L C-Reactive Protein 7.7 H (<=0.9) mg/dL Total Protein 5.6 L (6.4-8.2) g/dL Albumin 2.5 L (3.4-5.0) g/dL 02/20/19 02/20/19 02/20/19 Range/Units 07:01 11:16 17:21 WBC (4.0-10.2) K/uL RBC (4.33-5.41) M/uL Hgb (13.1-16.8) g/dL Hct (39.0-49.0) % MCV (84.0-98.0) fL MCH (28.2-33.3) pg MCHC (31.7-36.0) g/dL RDW (11.2-14.1) % Plt Count (150-350) K/uL Neut % (Auto) (45.0-80.0) % Lymph % (Auto) (10.0-50.0) % [place] % (Auto) (2.0-14.0) % Eos % (Auto) (0.0-5.0) % Baso % (Auto) (0.0-2.0) % Neut # (Auto) (1.40-7.00) K/uL Lymph # (Auto) (0.50-3.50) K/uL [place] # (Auto) (0.00-1.00) K/uL Eos # (Auto) (0.00-0.50) K/uL Baso # (Auto) (0.00-0.20) K/uL Sodium (136-145) mmol/L Potassium (3.5-5.1) mmol/L Chloride (98-107) mmol/L Carbon Dioxide (21.0-32.0) mmol/L BUN (7-18) mg/dL Creatinine (0.51-1.17) mg/dL Est Cr Clr Drug Dosing mL/min Estimated GFR (MDRD) mL/min Glucose (74-106) mg/dL POC Glucose 200 H 241 H 345 H* (65-110) mg/dl Calcium (8.5-10.1) mg/dL Total Bilirubin (0.2-1.0) mg/dL AST (15-37) U/L ALT (12-78) U/L Alkaline Phosphatase (46-116) IU/L C-Reactive Protein (<=0.9) mg/dL Total Protein (6.4-8.2) g/dL Albumin (3.4-5.0) g/dL 02/20/19 Range/Units 20:09 WBC (4.0-10.2) K/uL RBC (4.33-5.41) M/uL Hgb (13.1-16.8) g/dL Hct (39.0-49.0) % MCV (84.0-98.0) fL MCH (28.2-33.3) pg MCHC (31.7-36.0) g/dL RDW (11.2-14.1) % Plt Count (150-350) K/uL Neut % (Auto) (45.0-80.0) % Lymph % (Auto) (10.0-50.0) % [place] % (Auto) (2.0-14.0) % Eos % (Auto) (0.0-5.0) % Baso % (Auto) (0.0-2.0) % Neut # (Auto) (1.40-7.00) K/uL Lymph # (Auto) (0.50-3.50) K/uL [place] # (Auto) (0.00-1.00) K/uL Eos # (Auto) (0.00-0.50) K/uL Baso # (Auto) (0.00-0.20) K/uL Sodium (136-145) mmol/L Potassium (3.5-5.1) mmol/L Chloride (98-107) mmol/L Carbon Dioxide (21.0-32.0) mmol/L BUN (7-18) mg/dL Creatinine (0.51-1.17) mg/dL Est Cr Clr Drug Dosing mL/min Estimated GFR (MDRD) mL/min Glucose (74-106) mg/dL POC Glucose 348 H* (65-110) mg/dl Calcium (8.5-10.1) mg/dL Total Bilirubin (0.2-1.0) mg/dL AST (15-37) U/L ALT (12-78) U/L Alkaline Phosphatase (46-116) IU/L C-Reactive Protein (<=0.9) mg/dL Total Protein (6.4-8.2) g/dL Albumin (3.4-5.0) g/dL Murali Results Last 24 Hours: Microbiology 02/19/19 12:40 Aerobic Blood Culture - Preliminary Blood NO GROWTH AFTER 1 DAY Anaerobic Blood Culture - Preliminary NO GROWTH AFTER 1 DAY Med Orders - Current: Current Medications Acetaminophen (Tylenol) 650 mg PO Q4H PRN PRN Reason: Pain Last Admin: 02/20/19 17:25 Dose: 650 mg Hydrocodone Bitart/Acetaminophen ([place] 325-5 Mg) 1 tab PO Q6H PRN PRN Reason: Pain (moderate 4-6) Last Admin: 02/20/19 20:03 Dose: 1 tab Albuterol/Ipratropium (Duoneb 3.0-0.5 Mg/3 Ml) 3 ml NEB QID [place]OM[facility]N Last Admin: 02/20/19 19:39 Dose: 3 ml Albuterol/Ipratropium (Duoneb 3.0-0.5 Mg/3 Ml) 3 ml NEB Q4HRRT PRN PRN Reason: Shortness of Breath Last Admin: 02/20/19 17:32 Dose: 3 ml Allopurinol (Zyloprim) 300 mg PO QAM [facility] Last Admin: 02/20/19 07:25 Dose: 300 mg Arformoterol Tartrate (Brovana) 15 mcg INH Q12HR [facility] Last Admin: 02/20/19 19:39 Dose: 15 mcg Artificial Tears (Liquitears 1.4% Ophth Soln) 0 ml EYEBOTH DAILY [facility] Last Admin: 02/20/19 07:22 Dose: 1 drop Carvedilol (Coreg) 12.5 mg PO Q12HR [facility] Cholecalciferol (Vitamin D3) 25 mcg PO DAILY [facility] Last Admin: 02/20/19 07:26 Dose: 25 mcg Cyanocobalamin (Vitamin B12) 1,000 mcg PO DAILY [facility] Last Admin: 02/20/19 07:26 Dose: 1,000 mcg Docusate Sodium (Colace) 100 mg PO BID [facility] Last Admin: 02/20/19 17:25 Dose: 100 mg Enoxaparin Sodium (Lovenox) 40 mg SUBCUT DAILY [facility] Last Admin: 02/20/19 07:24 Dose: 40 mg Furosemide (Lasix) 40 mg PO BID@08,14 [facility] Last Admin: 02/20/19 13:07 Dose: 40 mg Gabapentin (Neurontin) 300 mg PO TID [facility] Last Admin: 02/20/19 17:25 Dose: 300 mg Guaifenesin/Dextromethorphan (Robitussin Dm) 10 ml PO QID [facility] Last Admin: 02/20/19 19:39 Dose: 10 ml Hydrocortisone (Proctozone-Hc 2.5% Crm) 0 gm TOP BID PRN PRN Reason: Hemorrhoids Hydromorphone HCl (Dilaudid) 1 mg IVPUSH Q1H PRN PRN Reason: back pain Last Admin: 02/19/19 09:27 Dose: 1 mg Levofloxacin/Dextrose 500 mg/ (Premix) 100 mls @ 100 mls/hr IV Q24H [facility] Last Admin: 02/20/19 13:07 Dose: 100 mls/hr Metronidazole 500 mg/ Premix 100 mls @ 100 mls/hr IV Q8H [facility] Last Admin: 02/20/19 21:11 Dose: 100 mls/hr Insulin Glargine (Lantus) 20 unit SUBCUT BEDTIME [facility] Last Admin: 02/20/19 19:39 Dose: 20 units Insulin Human Lispro (Humalog) 8 unit SUBCUT TID@0800,1200,1800 [facility] Last Admin: 02/20/19 17:22 Dose: 8 unit Isosorbide Mononitrate (Imdur) 60 mg PO DAILY [facility] Last Admin: 02/20/19 07:26 Dose: 60 mg Loratadine (Claritin) 10 mg PO DAILY [facility] Last Admin: 02/20/19 07:26 Dose: 10 mg Magnesium Oxide (Magnesium Oxide) 400 mg PO BID [facility] Last Admin: 02/20/19 17:25 Dose: 400 mg Multivitamins/Minerals/Vitamin C (Tab-A-Prisca) 1 tab PO DAILY [facility] Last Admin: 02/20/19 07:25 Dose: 1 tab Non-Formulary Medication (Iron,Carbonyl/Ascorbic Acid [Vitron-C Tablet]) 1 each PO BID [facility] Omeprazole (Omeprazole) 20 mg PO BID [facility] Last Admin: 02/20/19 17:25 Dose: 20 mg Ondansetron HCl (Zofran Odt) 4 mg PO Q6H PRN PRN Reason: Nausea/Vomiting Potassium Chloride (Potassium Chloride Solution) 20 meq PO DAILY [facility] Last Admin: 02/20/19 07:23 Dose: 20 meq Prednisone (Prednisone) 40 mg PO DAILY [facility] Last Admin: 02/20/19 07:29 Dose: 40 mg Sodium Chloride (Saline Flush) 10 ml FLUSH ASDIRECTED PRN PRN Reason: Keep Vein Open Last Admin: 02/20/19 05:38 Dose: 10 ml Sodium Chloride (Saline Flush) 10 ml FLUSH Q12HR [facility] Tamsulosin HCl (Flomax) 0.4 mg PO DAILY [facility] Last Admin: 02/20/19 07:26 Dose: 0.4 mg Discontinued Medications Arformoterol Tartrate (Brovana) 15 mcg INH BID [facility] Last Admin: 02/20/19 07:23 Dose: 15 mcg Carvedilol (Coreg) 12.5 mg PO BID [facility] Last Admin: 02/20/19 17:26 Dose: 12.5 mg Hydrocortisone (Proctozone-Hc 2.5% Crm) 1 gm TOP BID [facility] Last Admin: 02/20/19 07:20 Dose: 1 applic Lactated Ringer's (Ringers, Lactated) 1,000 mls @ 125 mls/hr IV ASDIRECTED [facility] Last Admin: 02/19/19 12:53 Dose: 125 mls/hr Piperacillin Sod/Tazobactam (Sod 3.375 gm/ Sodium Chloride) 100 mls @ 200 mls/ hr IV Q6H [facility] Last Admin: 02/20/19 17:21 Dose: 200 mls/hr Sodium Chloride (Saline Flush) 10 ml FLUSH ASDIRECTED PRN PRN Reason: Keep Vein Open Last Admin: 02/20/19 21:14 Dose: 10 ml - Exam Quality Assessment: Supplemental Oxygen, Urine Catheter, DVT Prophylaxis General: No Acute Distress HEENT: Mucous Membr. Moist/[place] Neck: Trachea Midline, No JVD Lungs: Normal Respiratory Effort, Decreased Breath Sounds (LLL) Cardiovascular: Regular Rate, Regular Rhythm GI/Abdominal Exam: Soft, Non-Tender (Male) Exam: Other (urinary catheter) Back Exam: Normal Inspection Extremities: Non-Tender Skin: Warm, Dry, Intact, Ecchymosis Neurological: No New Focal Deficit Psy/Mental Status: Normal Mood - Problem List & Annotations (1) Urinary retention with incomplete bladder emptying SNOMED Code(s): 997391117 Code(s): R33.9 - RETENTION OF URINE, UNSPECIFIED Status: Acute Priority: High Current Visit: Yes (2) Low back pain SNOMED Code(s): 804493098 Code(s): M54.5 - LOW BACK PAIN Status: Acute Priority: High Current Visit: Yes Qualifiers: Chronicity: acute Back pain laterality: midline Sciatica presence: without sciatica Qualified Code(s): M54.5 - Low back pain (3) Pneumonia SNOMED Code(s): 123989041 Code(s): J18.9 - PNEUMONIA, UNSPECIFIED ORGANISM Status: Acute Priority: High Current Visit: Yes Qualifiers: Pneumonia type: due to unspecified organism Laterality: left Lung location: lower lobe of lung Qualified Code(s): J18.1 - Lobar pneumonia, unspecified organism Annotation/Comment:: (4) Anemia SNOMED Code(s): 372621500 Code(s): D64.9 - ANEMIA, UNSPECIFIED Status: Chronic Priority: Low Current Visit: No Qualifiers: Anemia type: other cause Other causes of anemia: chronic disease, other Qualified Code(s): D63.8 - Anemia in other chronic diseases classified elsewhere (5) COPD (chronic obstructive pulmonary disease) SNOMED Code(s): 27368097 Code(s): J44.9 - CHRONIC OBSTRUCTIVE PULMONARY DISEASE, UNSPECIFIED Status : Chronic Priority: High Current Visit: No Qualifiers: COPD type: COPD with acute exacerbation Qualified Code(s): J44.1 - Chronic obstructive pulmonary disease with (acute) exacerbation (6) Chronic GERD SNOMED Code(s): 793136901, 368320124 Code(s): K21.9 - GASTRO-ESOPHAGEAL REFLUX DISEASE WITHOUT ESOPHAGITIS Status: Chronic Priority: Medium Current Visit: No Annotation/Comment:: Chronic GERD as per history (7) Chronic cerebral ischemia SNOMED Code(s): 611797012 Code(s): I67.82 - CEREBRAL ISCHEMIA Status: Chronic Priority: Medium Current Visit: No (8) Chronic diastolic (congestive) heart failure SNOMED Code(s): 296306372, 443723715 Code(s): I50.32 - CHRONIC DIASTOLIC (CONGESTIVE) HEART FAILURE Status: Chronic Priority: Medium Current Visit: No (9) Chronic kidney disease (CKD) SNOMED Code(s): 124417893 Code(s): N18.9 - CHRONIC KIDNEY DISEASE, UNSPECIFIED Status: Chronic Priority: Low Current Visit: No Qualifiers: Chronic kidney disease stage: unspecified stage Qualified Code(s): N18.9 - Chronic kidney disease, unspecified (10) Chronic respiratory failure with hypoxia SNOMED Code(s): 525685429 Code(s): J96.11 - CHRONIC RESPIRATORY FAILURE WITH HYPOXIA Status: Chronic Priority: High Current Visit: Yes Annotation/Comment:: Oxygen dependent COPD (11) Comfort measures only status SNOMED Code(s): 79234700739006 Code(s): Z51.5 - ENCOUNTER FOR PALLIATIVE CARE Status: Chronic Priority: High Current Visit: Yes (12) Coronary artery disease SNOMED Code(s): 12125223 Code(s): I25.10 - ATHSCL HEART DISEASE OF [place] CORONARY ARTERY W/O ANG PCTRS Status: Chronic Priority: Medium Current Visit: No Qualifiers: Coronary Disease-Associated Artery/Lesion type: [place] artery [place] vs. transplanted heart: [place] heart Associated angina: without angina Qualified Code(s): I25.10 - Atherosclerotic heart disease of [place] coronary artery without angina pectoris (13) DNI (do not intubate) SNOMED Code(s): 857515438 Code(s): Z78.9 - OTHER SPECIFIED HEALTH STATUS Status: Chronic Current Visit: Yes (14) DNR (do not resuscitate) Status: Chronic Current Visit: Yes (15) Diabetes mellitus SNOMED Code(s): 23284910 Code(s): E11.9 - TYPE 2 DIABETES MELLITUS WITHOUT COMPLICATIONS Status: Chronic Priority: Medium Current Visit: No Annotation/Comment:: Generalized weakness secondary to pneumonia with multiple falls (16) Dyslipidemia SNOMED Code(s): 142803515 Code(s): E78.5 - HYPERLIPIDEMIA, UNSPECIFIED Status: Chronic Priority: Medium Current Visit: No (17) Emphysema lung SNOMED Code(s): 30240734 Code(s): J43.9 - EMPHYSEMA, UNSPECIFIED Status: Chronic Current Visit: No Qualifiers: Emphysema type: centrilobular Qualified Code(s): J43.2 - Centrilobular emphysema (18) Exertional dyspnea SNOMED Code(s): 42062528 Code(s): R06.09 - OTHER FORMS OF DYSPNEA Status: Chronic Priority: High Current Visit: Yes (19) Generalized weakness SNOMED Code(s): 15521672 Code(s): R53.1 - WEAKNESS Status: Chronic Priority: High Current Visit : Yes (20) Gout SNOMED Code(s): 24975396 Code(s): M10.9 - GOUT, UNSPECIFIED Status: Chronic Priority: Low Current Visit: No Qualifiers: Gout site: multiple sites Gout etiology: due to renal impairment Chronicity: chronic Presence of tophus: without tophus Qualified Code(s): M1A.39X0 - Chronic gout due to renal impairment, multiple sites, without tophus (tophi) (21) HTN, Benign hypertension SNOMED Code(s): 66382344 Code(s): I10 - ESSENTIAL (PRIMARY) HYPERTENSION Status: Chronic Priority : Medium Current Visit: No (22) Heart disease SNOMED Code(s): 92375472 Code(s): I51.9 - HEART DISEASE, UNSPECIFIED Status: Chronic Priority: Medium Current Visit: No Annotation/Comment:: (23) Hemorrhoids SNOMED Code(s): 74716264 Code(s): K64.9 - UNSPECIFIED HEMORRHOIDS Status: Chronic Priority: Medium Current Visit: No Qualifiers: Hemorrhoid type: perianal venous thrombosis Qualified Code(s): K64.5 - Perianal venous thrombosis (24) History of ESBL Klebsiella pneumoniae infection SNOMED Code(s): 706700942 Code(s): Z86.19 - PERSONAL HISTORY OF OTHER INFECTIOUS AND PARASITIC DISEASES Status: Chronic Priority: Medium Current Visit: No (25) Hypoalbuminemia SNOMED Code(s): 890303469 Code(s): E88.09 - OTH DISORDERS OF PLASMA-PROTEIN METABOLISM, NEC Status: Chronic Priority: Medium Current Visit: No (26) Hypomagnesemia SNOMED Code(s): 208541767 Code(s): E83.42 - HYPOMAGNESEMIA Status: Chronic Priority: Medium Current Visit: No Onset Date: 06/29/16 (27) Leukocytosis SNOMED Code(s): 640498089, 131292158 Code(s): D72.829 - ELEVATED WHITE BLOOD CELL COUNT, UNSPECIFIED Status: Chronic Priority: Medium Current Visit: No Qualifiers: Leukocytosis type: unspecified Qualified Code(s): D72.829 - Elevated white blood cell count, unspecified Annotation/Comment:: Elevated white count secondary to pneumonia (28) Neuropathy SNOMED Code(s): 077532764 Code(s): G62.9 - POLYNEUROPATHY, UNSPECIFIED Status: Chronic Priority: Medium Current Visit: No (29) Obesity (BMI 30-39.9) SNOMED Code(s): 460655213, 371218615 Code(s): E66.9 - OBESITY, UNSPECIFIED Status: Chronic Priority: Medium Current Visit: No (30) Obstructive sleep apnea on CPAP SNOMED Code(s): 65410922 Code(s): G47.33 - OBSTRUCTIVE SLEEP APNEA (ADULT) (PEDIATRIC); Z99.89 - DEPENDENCE ON OTHER ENABLING MACHINES AND DEVICES Status: Chronic Priority: Low Current Visit: No Annotation/Comment:: (31) Old cerebrovascular accident (CVA) without late effect SNOMED Code(s): 261700303 Code(s): Z86.73 - PRSNL HX OF TIA (TIA), AND CEREB INFRC W/O RESID DEFICITS Status: Chronic Priority: Medium Current Visit: No (32) Osteoarthritis SNOMED Code(s): 735644228 Code(s): M19.90 - UNSPECIFIED OSTEOARTHRITIS, UNSPECIFIED SITE Status: Chronic Priority: Medium Current Visit: No (33) Oxygen dependent SNOMED Code(s): 658782087222 Code(s): Z99.81 - DEPENDENCE ON SUPPLEMENTAL OXYGEN Status: Chronic Priority: High Current Visit: No (34) Physical deconditioning SNOMED Code(s): 75229331373735 Code(s): R53.81 - OTHER MAL[place]ISE Status: Chronic Priority: High Current Visit: No - Problem List Review Problem List Initiated/Reviewed/Updated: Yes - My Orders Last 24 Hours: My Active Orders 02/20/19 14:00 metroNIDAZOLE/Normal Saline [Flagyl 500 MG in NS 100 ML] 500 mg Premix Bag 1 bag IV Q8H 02/20/19 20:00 Arformoterol [Brovana] 15 mcg INH Q12HR 02/21/19 05:11 CBC WITH AUTO DIFF [HEME] DAILY CMP [COMPREHENSIVE METABOLIC PN,CMP] [CHEM] DAILY CRP [C-REACTIVE PROTEIN] [CHEM] DAILY SEDIMENTATION RATE AUTO [HEME] Routine 02/21/19 08:00 Consult to Case Management/Oral Surgery Technician [CONS] Routine Carvedilol [Coreg] 12.5 mg PO Q12HR Sodium Chloride 0.9% [Saline Flush] 10 ml FLUSH Q12HR 02/22/19 05:11 CBC WITH AUTO DIFF [HEME] DAILY CMP [COMPREHENSIVE METABOLIC PN,CMP] [CHEM] DAILY CRP [C-REACTIVE PROTEIN] [CHEM] DAILY 02/23/19 05:11 CBC WITH AUTO DIFF [HEME] DAILY CMP [COMPREHENSIVE METABOLIC PN,CMP] [CHEM] DAILY CRP [C-REACTIVE PROTEIN] [CHEM] DAILY - Plan Plan:: 02/20/19 Dusty Seaman MD Fever, weakness. Pneumonia, emphysema, UTI, urinary retention (~900ml) butler in place. Continue antibiotics. C&S pending. PT-OT and discharge planning.
[2019-02-21] MEDS: metroNIDAZOLE/Normal Saline 500 MG in Premix Bag 1 BAG IV SCH ×3 (05:05→20:59)
[2019-02-21] MEDS: Albuterol/Ipratropium 3.0-0.5 MG/3 ML Neb Soln NEB PRN (05:06)
[2019-02-21] MEDS: Sodium Chloride 0.9% 10 ML Syringe FLUSH PRN ×4 (05:06→16:34)
[2019-02-21] MEDS ORDERED: Magnesium Hydroxide 400 MG/5 ML Susp 30 ML Cup PO PRN (07:26)
[2019-02-21 07:32] LABS: O2 DELIVERY DEVICE NASAL CANNULA
[2019-02-21] MEDS: Arformoterol 15 MCG/2 ML Neb Soln INH SCH ×2 (07:44→20:14)
[2019-02-21] MEDS: Docusate Sodium 100 MG Cap PO SCH ×2 (07:44→17:30)
[2019-02-21 07:45] LABS: BICARBONATE,VENOUS 30 mmol/L (23-28); O2 SATURATION VENOUS 84 %; PCO2 VENOUS 47 mmHG (41-51); PH,VENOUS 7.42 (7.31-7.41); PO2 VENOUS 48 mmHG
[2019-02-21] MEDS: Allopurinol 100 MG Tab PO SCH (07:45)
[2019-02-21] MEDS: Multivitamin Tab PO SCH (07:45)
[2019-02-21 07:46] LABS: BASE EXCESS VENOUS 6 mmol/L ((-2)-3)
[2019-02-21] MEDS: Finasteride 5 MG Tab PO SCH (07:46)
[2019-02-21] MEDS: Gabapentin 300 MG Cap PO SCH ×3 (07:46→17:30)
[2019-02-21] MEDS: Loratadine 10 MG Tab PO SCH (07:47)
[2019-02-21] MEDS: Magnesium Oxide 400 MG Tab PO SCH ×2 (07:47→17:29)
[2019-02-21] MEDS: Potassium Chloride 10% 20 MEQ/15 ML Soln 15 ML UD Cup PO SCH (07:47)
[2019-02-21] MEDS: Isosorbide Mononitrate 60 MG Tab.ER PO SCH (07:47)
[2019-02-21] MEDS: Cyanocobalamin (Vitamin B12) 1,000 MCG Tab PO SCH (07:47)
[2019-02-21] MEDS: Omeprazole 20 MG Cap.CR PO SCH ×2 (07:47→17:30)
[2019-02-21] MEDS: Carvedilol 12.5 MG Tab PO SCH ×2 (07:48→20:14)
[2019-02-21] MEDS: Furosemide 40 MG Tab PO SCH (07:48)
[2019-02-21] MEDS: Cholecalciferol (Vitamin D3) 25 MCG Tab PO SCH (07:48)
[2019-02-21] MEDS: guaiFENesin/Dextromethorphan 100-10 MG/5 ML Soln 10 ML Cup PO SCH ×4 (07:49→20:17)
[2019-02-21] MEDS: Insulin Lispro 100 Units/ML 3 ML Vial SUBCUT SCH ×3 (07:49→17:31)
[2019-02-21] MEDS: Enoxaparin 40 MG/0.4 ML Syringe SUBCUT SCH (07:50)
[2019-02-21] MEDS: Albuterol/Ipratropium 3.0-0.5 MG/3 ML Neb Soln NEB SCH ×4 (07:50→20:14)
[2019-02-21] MEDS: Polyvinyl Alcohol 1.4% Ophth Soln 15 ML Bottle EYEBOTH SCH (07:51)
[2019-02-21] MEDS: Sodium Chloride 0.9% 10 ML Syringe FLUSH SCH ×2 (07:51→20:23)
[2019-02-21] MEDS: Acetaminophen/HYDROcodone 325-5 MG Tab PO PRN (08:50)
[2019-02-21] MEDS: Levofloxacin/Dextrose 5%-Water 500 MG in Premix Bag 1 BAG IV SCH (13:51)
[2019-02-21] MEDS: Insulin Glarg,Human.Rec.Analog 100 UNIT/ML ML SUBCUT SCH (20:15)
[2019-02-21] MEDS: Tamsulosin 0.4 MG Cap.ER PO SCH (20:15)
--- NOTE | 2019-02-21 21:55 | PCM.PN ---
- General Info Date of Service: 02/21/19 Functional Status: Reports: Tolerating Diet - Review of Systems General: Reports: Weakness HEENT: Reports: No Symptoms Pulmonary: Reports: Shortness of Breath, Cough Cardiovascular: Reports: Dyspnea on Exertion Gastrointestinal: Reports: Constipation Genitourinary: Reports: Retention Musculoskeletal: Reports: Back Pain (severe) Skin: Reports: Bruising Neurological: Reports: Weakness Psychiatric: Reports: No Symptoms - Patient Data Vitals - Most Recent: Last Vital Signs Temp 98.6 F 02/21/19 19:15 Pulse 74 02/21/19 20:14 Resp 18 02/21/19 20:13 BP 120/60 02/21/19 20:14 Pulse Ox 96 02/21/19 20:13 Weight - Most Recent: 270 lb I&O - Last 24 Hours: Intake & Output 02/21/19 02/21/19 02/21/19 06:59 14:59 22:59 Intake Total 500 1340 410 Output Total 450 450 Balance 50 890 410 Lab Results Last 24 Hours: Laboratory Results - last 24 hr 02/21/19 02/21/19 02/21/19 Range/Units 07:09 07:09 07:09 WBC 15.2 H (4.0-10.2) K/uL RBC 2.79 L (4.33-5.41) M/uL Hgb 10.1 L (13.1-16.8) g/dL Hct 30.4 L (39.0-49.0) % MCV 109.0 H (84.0-98.0) fL MCH 36.2 H (28.2-33.3) pg MCHC 33.2 (31.7-36.0) g/dL RDW 17.6 H (11.2-14.1) % Plt Count 97 L (150-350) K/uL Neut % (Auto) 76.3 (45.0-80.0) % Lymph % (Auto) 13.4 (10.0-50.0) % [place] % (Auto) 9.7 (2.0-14.0) % Eos % (Auto) 0.5 (0.0-5.0) % Baso % (Auto) 0.1 (0.0-2.0) % Neut # (Auto) 11.60 H (1.40-7.00) K/uL Lymph # (Auto) 2.03 (0.50-3.50) K/uL [place] # (Auto) 1.48 H (0.00-1.00) K/uL Eos # (Auto) 0.07 (0.00-0.50) K/uL Baso # (Auto) 0.02 (0.00-0.20) K/uL ESR 96 H (0-20) mm/hr VBG pH 7.42 H (7.31-7.41) VBG pCO2 47 (41-51) mmHG VBG pO2 48 mmHG VBG HCO3 30 H (23-28) mmol/L VBG Total CO2 31 mmol/L VBG O2 Saturation 84 % VBG Base Excess 6 H ((-2)-3) mmol/L O2 Delivery Device Nasal cannula Sodium 136 (136-145) mmol/L Potassium 3.8 (3.5-5.1) mmol/L Chloride 98 (98-107) mmol/L Carbon Dioxide 29.8 (21.0-32.0) mmol/L BUN 42 H (7-18) mg/dL Creatinine 1.74 H (0.51-1.17) mg/dL Est Cr Clr Drug Dosing 36.61 mL/min Estimated GFR (MDRD) 38 mL/min Glucose 156 H (74-106) mg/dL POC Glucose (65-110) mg/dl Uric Acid 8.3 H (2.6-7.2) mg/dL Calcium 8.5 (8.5-10.1) mg/dL Magnesium 2.2 (1.8-2.4) mg/dL Total Bilirubin 0.6 (0.2-1.0) mg/dL AST 40 H (15-37) U/L ALT 50 (12-78) U/L Alkaline Phosphatase 97 (46-116) IU/L C-Reactive Protein 18.8 H (<=0.9) mg/dL Total Protein 5.7 L (6.4-8.2) g/dL Albumin 2.5 L (3.4-5.0) g/dL Prostate Specific Ag 0.44 (0.13-4.0) ng/ml 02/21/19 02/21/19 02/21/19 Range/Units 07:18 11:21 16:37 WBC (4.0-10.2) K/uL RBC (4.33-5.41) M/uL Hgb (13.1-16.8) g/dL Hct (39.0-49.0) % MCV (84.0-98.0) fL MCH (28.2-33.3) pg MCHC (31.7-36.0) g/dL RDW (11.2-14.1) % Plt Count (150-350) K/uL Neut % (Auto) (45.0-80.0) % Lymph % (Auto) (10.0-50.0) % [place] % (Auto) (2.0-14.0) % Eos % (Auto) (0.0-5.0) % Baso % (Auto) (0.0-2.0) % Neut # (Auto) (1.40-7.00) K/uL Lymph # (Auto) (0.50-3.50) K/uL [place] # (Auto) (0.00-1.00) K/uL Eos # (Auto) (0.00-0.50) K/uL Baso # (Auto) (0.00-0.20) K/uL ESR (0-20) mm/hr VBG pH (7.31-7.41) VBG pCO2 (41-51) mmHG VBG pO2 mmHG VBG HCO3 (23-28) mmol/L VBG Total CO2 mmol/L VBG O2 Saturation % VBG Base Excess ((-2)-3) mmol/L O2 Delivery Device Sodium (136-145) mmol/L Potassium (3.5-5.1) mmol/L Chloride (98-107) mmol/L Carbon Dioxide (21.0-32.0) mmol/L BUN (7-18) mg/dL Creatinine (0.51-1.17) mg/dL Est Cr Clr Drug Dosing mL/min Estimated GFR (MDRD) mL/min Glucose (74-106) mg/dL POC Glucose 161 H 216 H 223 H (65-110) mg/dl Uric Acid (2.6-7.2) mg/dL Calcium (8.5-10.1) mg/dL Magnesium (1.8-2.4) mg/dL Total Bilirubin (0.2-1.0) mg/dL AST (15-37) U/L ALT (12-78) U/L Alkaline Phosphatase (46-116) IU/L C-Reactive Protein (<=0.9) mg/dL Total Protein (6.4-8.2) g/dL Albumin (3.4-5.0) g/dL Prostate Specific Ag (0.13-4.0) ng/ml Murali Results Last 24 Hours: Microbiology 02/19/19 12:40 Aerobic Blood Culture - Preliminary Blood NO GROWTH AFTER 2 DAYS Anaerobic Blood Culture - Preliminary NO GROWTH AFTER 2 DAYS Med Orders - Current: Current Medications Acetaminophen (Tylenol) 650 mg PO Q4H PRN PRN Reason: Pain Last Admin: 02/20/19 17:25 Dose: 650 mg Hydrocodone Bitart/Acetaminophen ([place] 325-5 Mg) 1 tab PO Q6H PRN PRN Reason: Pain (moderate 4-6) Last Admin: 02/21/19 08:50 Dose: 1 tab Albuterol/Ipratropium (Duoneb 3.0-0.5 Mg/3 Ml) 3 ml NEB QID [facility] Last Admin: 02/21/19 20:14 Dose: 3 ml Albuterol/Ipratropium (Duoneb 3.0-0.5 Mg/3 Ml) 3 ml NEB Q4HRRT PRN PRN Reason: Shortness of Breath Last Admin: 02/21/19 05:06 Dose: 3 ml Allopurinol (Zyloprim) 300 mg PO QAM [facility] Last Admin: 02/21/19 07:45 Dose: 300 mg Arformoterol Tartrate (Brovana) 15 mcg INH Q12HR [facility] Last Admin: 02/21/19 20:14 Dose: 15 mcg Artificial Tears (Liquitears 1.4% Ophth Soln) 0 ml EYEBOTH DAILY [facility] Last Admin: 02/21/19 07:51 Dose: 1 drop Carvedilol (Coreg) 12.5 mg PO Q12HR [facility] Last Admin: 02/21/19 20:14 Dose: 12.5 mg Cholecalciferol (Vitamin D3) 25 mcg PO DAILY [facility] Last Admin: 02/21/19 07:48 Dose: 25 mcg Cyanocobalamin (Vitamin B12) 1,000 mcg PO DAILY [facility] Last Admin: 02/21/19 07:47 Dose: 1,000 mcg Docusate Sodium (Colace) 100 mg PO BID [facility] Last Admin: 02/21/19 17:30 Dose: 100 mg Enoxaparin Sodium (Lovenox) 30 mg SUBCUT DAILY [facility] Finasteride (Proscar) 5 mg PO DAILY [facility] Last Admin: 02/21/19 07:46 Dose: 5 mg Furosemide (Lasix) 40 mg PO DAILY [facility] Gabapentin (Neurontin) 300 mg PO TID [facility] Last Admin: 02/21/19 17:30 Dose: 300 mg Guaifenesin/Dextromethorphan (Robitussin Dm) 10 ml PO QID [facility] Last Admin: 02/21/19 20:17 Dose: 10 ml Hydrocortisone (Proctozone-Hc 2.5% Crm) 0 gm TOP BID PRN PRN Reason: Hemorrhoids Hydromorphone HCl (Dilaudid) 1 mg IVPUSH Q1H PRN PRN Reason: back pain Last Admin: 02/19/19 09:27 Dose: 1 mg Levofloxacin/Dextrose 500 mg/ (Premix) 100 mls @ 100 mls/hr IV Q24H [facility] Last Admin: 02/21/19 13:51 Dose: 100 mls/hr Metronidazole 500 mg/ Premix 100 mls @ 100 mls/hr IV Q8H [facility] Last Admin: 02/21/19 20:59 Dose: 100 mls/hr Insulin Glargine (Lantus) 20 unit SUBCUT BEDTIME [facility] Last Admin: 02/21/19 20:15 Dose: 20 units Insulin Human Lispro (Humalog) 8 unit SUBCUT TID@0800,1200,1800 [facility] Last Admin: 02/21/19 17:31 Dose: 8 unit Isosorbide Mononitrate (Imdur) 60 mg PO DAILY [facility] Last Admin: 02/21/19 07:47 Dose: 60 mg Loratadine (Claritin) 10 mg PO DAILY [facility] Last Admin: 02/21/19 07:47 Dose: 10 mg Magnesium Hydroxide (Milk Of Magnesia) 30 ml PO DAILY PRN PRN Reason: Constipation Last Admin: 02/21/19 08:51 Dose: 30 ml Magnesium Oxide (Magnesium Oxide) 400 mg PO BID [facility] Last Admin: 02/21/19 17:29 Dose: 400 mg Multivitamins/Minerals/Vitamin C (Tab-A-Prisca) 1 tab PO DAILY [facility] Last Admin: 02/21/19 07:45 Dose: 1 tab Non-Formulary Medication (Iron,Carbonyl/Ascorbic Acid [Vitron-C Tablet]) 1 each PO BID [facility] Omeprazole (Omeprazole) 20 mg PO BID [facility] Last Admin: 02/21/19 17:30 Dose: 20 mg Ondansetron HCl (Zofran Odt) 4 mg PO Q6H PRN PRN Reason: Nausea/Vomiting Potassium Chloride (Potassium Chloride Solution) 20 meq PO DAILY [facility] Last Admin: 02/21/19 07:47 Dose: 20 meq Sodium Chloride (Saline Flush) 10 ml FLUSH ASDIRECTED PRN PRN Reason: Keep Vein Open Last Admin: 02/21/19 16:34 Dose: 10 ml Sodium Chloride (Saline Flush) 10 ml FLUSH Q12HR [facility] Last Admin: 02/21/19 20:23 Dose: 10 ml Tamsulosin HCl (Flomax) 0.8 mg PO BEDTIME [facility] Last Admin: 02/21/19 20:15 Dose: 0.8 mg Discontinued Medications Arformoterol Tartrate (Brovana) 15 mcg INH BID [facility] Last Admin: 02/20/19 07:23 Dose: 15 mcg Carvedilol (Coreg) 12.5 mg PO BID [facility] Last Admin: 02/20/19 17:26 Dose: 12.5 mg Enoxaparin Sodium (Lovenox) 40 mg SUBCUT DAILY [facility] Last Admin: 02/21/19 07:50 Dose: 40 mg Furosemide (Lasix) 40 mg PO BID@08,14 [facility] Last Admin: 02/21/19 07:48 Dose: 40 mg Hydrocortisone (Proctozone-Hc 2.5% Crm) 1 gm TOP BID [facility] Last Admin: 02/20/19 07:20 Dose: 1 applic Lactated Ringer's (Ringers, Lactated) 1,000 mls @ 125 mls/hr IV ASDIRECTED [facility] Last Admin: 02/19/19 12:53 Dose: 125 mls/hr Piperacillin Sod/Tazobactam (Sod 3.375 gm/ Sodium Chloride) 100 mls @ 200 mls/ hr IV Q6H [facility] Last Admin: 02/20/19 17:21 Dose: 200 mls/hr Prednisone (Prednisone) 40 mg PO DAILY [facility] Last Admin: 02/20/19 07:29 Dose: 40 mg Sodium Chloride (Saline Flush) 10 ml FLUSH ASDIRECTED PRN PRN Reason: Keep Vein Open Last Admin: 02/20/19 21:14 Dose: 10 ml Tamsulosin HCl (Flomax) 0.4 mg PO DAILY [facility] Last Admin: 02/20/19 07:26 Dose: 0.4 mg - Exam Quality Assessment: Supplemental Oxygen, Urine Catheter, DVT Prophylaxis General: Alert, Cooperative, Mild Distress Neck: Trachea Midline, No JVD Lungs: Normal Respiratory Effort, Decreased Breath Sounds, Rhonchi Cardiovascular: Regular Rate, Regular Rhythm GI/Abdominal Exam: Soft, Non-Tender (Male) Exam: Deferred, Other (butler catheter) Back Exam: Decreased Range of Motion, Vertebral Tenderness Extremities: Non-Tender Skin: Ecchymosis Neurological: No New Focal Deficit Psy/Mental Status: Alert, Normal Affect, Normal Mood - Problem List & Annotations (1) Urinary retention with incomplete bladder emptying SNOMED Code(s): 908489025 Code(s): R33.9 - RETENTION OF URINE, UNSPECIFIED Status: Acute Priority: High Current Visit: Yes (2) Low back pain SNOMED Code(s): 429777892 Code(s): M54.5 - LOW BACK PAIN Status: Acute Priority: High Current Visit: Yes Qualifiers: Chronicity: acute Back pain laterality: midline Sciatica presence: without sciatica Qualified Code(s): M54.5 - Low back pain (3) Pneumonia SNOMED Code(s): 157441299 Code(s): J18.9 - PNEUMONIA, UNSPECIFIED ORGANISM Status: Acute Priority: High Current Visit: Yes Qualifiers: Pneumonia type: due to unspecified organism Laterality: left Lung location: lower lobe of lung Qualified Code(s): J18.1 - Lobar pneumonia, unspecified organism Annotation/Comment:: (4) Anemia SNOMED Code(s): 328606346 Code(s): D64.9 - ANEMIA, UNSPECIFIED Status: Chronic Priority: Low Current Visit: No Qualifiers: Anemia type: other cause Other causes of anemia: chronic disease, other Qualified Code(s): D63.8 - Anemia in other chronic diseases classified elsewhere (5) COPD (chronic obstructive pulmonary disease) SNOMED Code(s): 27332365 Code(s): J44.9 - CHRONIC OBSTRUCTIVE PULMONARY DISEASE, UNSPECIFIED Status : Chronic Priority: High Current Visit: No Qualifiers: COPD type: COPD with acute exacerbation Qualified Code(s): J44.1 - Chronic obstructive pulmonary disease with (acute) exacerbation (6) Chronic GERD SNOMED Code(s): 121553171, 562956194 Code(s): K21.9 - GASTRO-ESOPHAGEAL REFLUX DISEASE WITHOUT ESOPHAGITIS Status: Chronic Priority: Medium Current Visit: No Annotation/Comment:: Chronic GERD as per history (7) Chronic cerebral ischemia SNOMED Code(s): 425096696 Code(s): I67.82 - CEREBRAL ISCHEMIA Status: Chronic Priority: Medium Current Visit: No (8) Chronic diastolic (congestive) heart failure SNOMED Code(s): 859174131, 745652976 Code(s): I50.32 - CHRONIC DIASTOLIC (CONGESTIVE) HEART FAILURE Status: Chronic Priority: Medium Current Visit: No (9) Chronic kidney disease (CKD) SNOMED Code(s): 958178985 Code(s): N18.9 - CHRONIC KIDNEY DISEASE, UNSPECIFIED Status: Chronic Priority: Low Current Visit: No Qualifiers: Chronic kidney disease stage: unspecified stage Qualified Code(s): N18.9 - Chronic kidney disease, unspecified (10) Chronic respiratory failure with hypoxia SNOMED Code(s): 603681139 Code(s): J96.11 - CHRONIC RESPIRATORY FAILURE WITH HYPOXIA Status: Chronic Priority: High Current Visit: Yes Annotation/Comment:: Oxygen dependent COPD (11) Comfort measures only status SNOMED Code(s): 35419888575465 Code(s): Z51.5 - ENCOUNTER FOR PALLIATIVE CARE Status: Chronic Priority: High Current Visit: Yes (12) Coronary artery disease SNOMED Code(s): 48292170 Code(s): I25.10 - ATHSCL HEART DISEASE OF [place] CORONARY ARTERY W/O ANG PCTRS Status: Chronic Priority: Medium Current Visit: No Qualifiers: Coronary Disease-Associated Artery/Lesion type: [place] artery [place] vs. transplanted heart: [place] heart Associated angina: without angina Qualified Code(s): I25.10 - Atherosclerotic heart disease of [place] coronary artery without angina pectoris (13) DNI (do not intubate) SNOMED Code(s): 583674719 Code(s): Z78.9 - OTHER SPECIFIED HEALTH STATUS Status: Chronic Current Visit: Yes (14) DNR (do not resuscitate) Status: Chronic Current Visit: Yes (15) Diabetes mellitus SNOMED Code(s): 92905147 Code(s): E11.9 - TYPE 2 DIABETES MELLITUS WITHOUT COMPLICATIONS Status: Chronic Priority: Medium Current Visit: No Annotation/Comment:: Generalized weakness secondary to pneumonia with multiple falls (16) Dyslipidemia SNOMED Code(s): 005934692 Code(s): E78.5 - HYPERLIPIDEMIA, UNSPECIFIED Status: Chronic Priority: Medium Current Visit: No (17) Emphysema lung SNOMED Code(s): 09693875 Code(s): J43.9 - EMPHYSEMA, UNSPECIFIED Status: Chronic Current Visit: No Qualifiers: Emphysema type: centrilobular Qualified Code(s): J43.2 - Centrilobular emphysema (18) Exertional dyspnea SNOMED Code(s): 82279359 Code(s): R06.09 - OTHER FORMS OF DYSPNEA Status: Chronic Priority: High Current Visit: Yes (19) Generalized weakness SNOMED Code(s): 24070332 Code(s): R53.1 - WEAKNESS Status: Chronic Priority: High Current Visit : Yes (20) Gout SNOMED Code(s): 29640596 Code(s): M10.9 - GOUT, UNSPECIFIED Status: Chronic Priority: Low Current Visit: No Qualifiers: Gout site: multiple sites Gout etiology: due to renal impairment Chronicity: chronic Presence of tophus: without tophus Qualified Code(s): M1A.39X0 - Chronic gout due to renal impairment, multiple sites, without tophus (tophi) (21) HTN, Benign hypertension SNOMED Code(s): 92119037 Code(s): I10 - ESSENTIAL (PRIMARY) HYPERTENSION Status: Chronic Priority : Medium Current Visit: No (22) Heart disease SNOMED Code(s): 22989665 Code(s): I51.9 - HEART DISEASE, UNSPECIFIED Status: Chronic Priority: Medium Current Visit: No Annotation/Comment:: (23) Hemorrhoids SNOMED Code(s): 48732771 Code(s): K64.9 - UNSPECIFIED HEMORRHOIDS Status: Chronic Priority: Medium Current Visit: No Qualifiers: Hemorrhoid type: perianal venous thrombosis Qualified Code(s): K64.5 - Perianal venous thrombosis (24) History of ESBL Klebsiella pneumoniae infection SNOMED Code(s): 050827231 Code(s): Z86.19 - PERSONAL HISTORY OF OTHER INFECTIOUS AND PARASITIC DISEASES Status: Chronic Priority: Medium Current Visit: No (25) Hypoalbuminemia SNOMED Code(s): 829805217 Code(s): E88.09 - OTH DISORDERS OF PLASMA-PROTEIN METABOLISM, NEC Status: Chronic Priority: Medium Current Visit: No (26) Hypomagnesemia SNOMED Code(s): 017509193 Code(s): E83.42 - HYPOMAGNESEMIA Status: Chronic Priority: Medium Current Visit: No Onset Date: 06/29/16 (27) Leukocytosis SNOMED Code(s): 656129435, 426183082 Code(s): D72.829 - ELEVATED WHITE BLOOD CELL COUNT, UNSPECIFIED Status: Chronic Priority: Medium Current Visit: No Qualifiers: Leukocytosis type: unspecified Qualified Code(s): D72.829 - Elevated white blood cell count, unspecified Annotation/Comment:: Elevated white count secondary to pneumonia (28) Neuropathy SNOMED Code(s): 498686241 Code(s): G62.9 - POLYNEUROPATHY, UNSPECIFIED Status: Chronic Priority: Medium Current Visit: No (29) Obesity (BMI 30-39.9) SNOMED Code(s): 645273512, 629236970 Code(s): E66.9 - OBESITY, UNSPECIFIED Status: Chronic Priority: Medium Current Visit: No (30) Obstructive sleep apnea on CPAP SNOMED Code(s): 53450557 Code(s): G47.33 - OBSTRUCTIVE SLEEP APNEA (ADULT) (PEDIATRIC); Z99.89 - DEPENDENCE ON OTHER ENABLING MACHINES AND DEVICES Status: Chronic Priority: Low Current Visit: No Annotation/Comment:: (31) Old cerebrovascular accident (CVA) without late effect SNOMED Code(s): 184228085 Code(s): Z86.73 - PRSNL HX OF TIA (TIA), AND CEREB INFRC W/O RESID DEFICITS Status: Chronic Priority: Medium Current Visit: No (32) Osteoarthritis SNOMED Code(s): 071624362 Code(s): M19.90 - UNSPECIFIED OSTEOARTHRITIS, UNSPECIFIED SITE Status: Chronic Priority: Medium Current Visit: No (33) Oxygen dependent SNOMED Code(s): 751857181197 Code(s): Z99.81 - DEPENDENCE ON SUPPLEMENTAL OXYGEN Status: Chronic Priority: High Current Visit: No (34) Physical deconditioning SNOMED Code(s): 68106765519389 Code(s): R53.81 - OTHER MALAISE Status: Chronic Priority: High Current Visit: No - Problem List Review Problem List Initiated/Reviewed/Updated: Yes - My Orders Last 24 Hours: My Active Orders 02/21/19 07:09 GABAPENTIN, SERUM [REF] Routine 02/21/19 07:26 Magnesium Hydroxide [Milk of Magnesia] 30 ml PO DAILY PRN 02/21/19 08:00 Consult to Case Management/Tap Out Operator [CONS] Routine Carvedilol [Coreg] 12.5 mg PO Q12HR Finasteride [Proscar] 5 mg PO DAILY Sodium Chloride 0.9% [Saline Flush] 10 ml FLUSH Q12HR 02/21/19 20:00 Tamsulosin [Flomax] 0.8 mg PO BEDTIME 02/22/19 05:11 CBC WITH AUTO DIFF [HEME] DAILY CMP [COMPREHENSIVE METABOLIC PN,CMP] [CHEM] DAILY CRP [C-REACTIVE PROTEIN] [CHEM] DAILY 02/22/19 08:00 Enoxaparin [Lovenox] 30 mg SUBCUT DAILY Furosemide [Lasix] 40 mg PO DAILY 02/23/19 05:11 CBC WITH AUTO DIFF [HEME] DAILY CMP [COMPREHENSIVE METABOLIC PN,CMP] [CHEM] DAILY CRP [C-REACTIVE PROTEIN] [CHEM] DAILY - Plan Plan:: 02/20/19 Dusty Seaman MD Fever, weakness. Pneumonia, emphysema, UTI, urinary retention (~900ml) butler in place. Continue antibiotics. C&S pending. PT-OT and discharge planning. 02/21/19 Dusty Seaman MD He does not feel well. Short of breath. Severe back pain. Constipation. Orders adjusted.
[2019-02-22] MEDS: Albuterol/Ipratropium 3.0-0.5 MG/3 ML Neb Soln NEB PRN (02:32)
[2019-02-22] MEDS: metroNIDAZOLE/Normal Saline 500 MG in Premix Bag 1 BAG IV SCH ×3 (05:53→21:45)
[2019-02-22] MEDS: Sodium Chloride 0.9% 10 ML Syringe FLUSH PRN (05:55)
[2019-02-22] MEDS: Insulin Lispro 100 Units/ML 3 ML Vial SUBCUT SCH ×3 (07:59→17:10)
[2019-02-22] MEDS ORDERED: Furosemide 40 MG Tab PO SCH (08:00)
[2019-02-22] MEDS ORDERED: Enoxaparin 30 MG/0.3 ML Syringe SUBCUT SCH (08:00)
[2019-02-22] MEDS: Potassium Chloride 10% 20 MEQ/15 ML Soln 15 ML UD Cup PO SCH (08:06)
[2019-02-22] MEDS: guaiFENesin/Dextromethorphan 100-10 MG/5 ML Soln 10 ML Cup PO SCH ×5 (08:07→19:18)
[2019-02-22] MEDS: Polyvinyl Alcohol 1.4% Ophth Soln 15 ML Bottle EYEBOTH SCH (08:08)
[2019-02-22] MEDS: Albuterol/Ipratropium 3.0-0.5 MG/3 ML Neb Soln NEB SCH ×4 (08:10→19:11)
[2019-02-22] MEDS: Acetaminophen 325 MG Tab PO PRN (08:12)
[2019-02-22] MEDS: Docusate Sodium 100 MG Cap PO SCH ×2 (08:14→17:12)
[2019-02-22] MEDS: Arformoterol 15 MCG/2 ML Neb Soln INH SCH ×2 (08:14→19:11)
[2019-02-22] MEDS: Multivitamin Tab PO SCH (08:15)
[2019-02-22] MEDS: Loratadine 10 MG Tab PO SCH (08:15)
[2019-02-22] MEDS: Isosorbide Mononitrate 60 MG Tab.ER PO SCH (08:16)
[2019-02-22] MEDS: Magnesium Oxide 400 MG Tab PO SCH ×2 (08:16→17:12)
[2019-02-22] MEDS: Cyanocobalamin (Vitamin B12) 1,000 MCG Tab PO SCH (08:16)
[2019-02-22] MEDS: Cholecalciferol (Vitamin D3) 25 MCG Tab PO SCH (08:17)
[2019-02-22] MEDS: Carvedilol 12.5 MG Tab PO SCH ×2 (08:17→19:12)
[2019-02-22] MEDS: Gabapentin 300 MG Cap PO SCH ×3 (08:17→17:13)
[2019-02-22] MEDS: Omeprazole 20 MG Cap.CR PO SCH ×2 (08:18→17:12)
[2019-02-22] MEDS: Finasteride 5 MG Tab PO SCH (08:18)
[2019-02-22] MEDS: Allopurinol 100 MG Tab PO SCH (08:19)
[2019-02-22] MEDS: Sodium Chloride 0.9% 10 ML Syringe FLUSH SCH ×2 (08:20→19:18)
[2019-02-22] MEDS: Levofloxacin/Dextrose 5%-Water 500 MG in Premix Bag 1 BAG IV SCH (12:45)
[2019-02-22] MEDS: Furosemide 40 MG/4 ML VIAL IVPUSH SCH (12:45)
[2019-02-22] MEDS ORDERED: Bisacodyl 10 MG Supp RECTAL PRN (15:21)
[2019-02-22] MEDS: Tamsulosin 0.4 MG Cap.ER PO SCH (19:12)
[2019-02-22] MEDS: Insulin Glarg,Human.Rec.Analog 100 UNIT/ML ML SUBCUT SCH (19:17)
[2019-02-22] MEDS: Acetaminophen/HYDROcodone 325-5 MG Tab PO PRN (19:54)
--- NOTE | 2019-02-22 21:53 | PCM.PN ---
- General Info Date of Service: 02/22/19 - Review of Systems General: Reports: Weakness, Fatigue HEENT: Reports: No Symptoms Pulmonary: Reports: Shortness of Breath, Cough Gastrointestinal: Reports: Constipation, Decreased Appetite (only eating bites) Genitourinary: Reports: Retention Musculoskeletal: Reports: Back Pain Skin: Reports: Bruising Neurological: Reports: Difficulty Walking (not able to walk), Weakness Psychiatric: Reports: No Symptoms - Patient Data Vitals - Most Recent: Last Vital Signs Temp 98.1 F 02/22/19 19:24 Pulse 86 02/22/19 19:24 Resp 18 02/22/19 19:24 BP 131/91 H 02/22/19 19:24 Pulse Ox 97 02/22/19 19:24 Weight - Most Recent: 270 lb I&O - Last 24 Hours: Intake & Output 02/22/19 02/22/19 02/22/19 06:59 14:59 22:59 Intake Total 200 540 400 Output Total 250 250 400 Balance -50 290 0 Lab Results Last 24 Hours: Laboratory Results - last 24 hr 02/21/19 02/22/19 02/22/19 Range/Units 22:22 07:03 07:03 WBC 16.8 H (4.0-10.2) K/uL RBC 2.83 L (4.33-5.41) M/uL Hgb 10.3 L (13.1-16.8) g/dL Hct 31.4 L (39.0-49.0) % MCV 111.0 H (84.0-98.0) fL MCH 36.4 H (28.2-33.3) pg MCHC 32.8 (31.7-36.0) g/dL RDW 17.8 H (11.2-14.1) % Plt Count 117 L (150-350) K/uL Neut % (Auto) 72.0 (45.0-80.0) % Lymph % (Auto) 16.1 (10.0-50.0) % Snyder % (Auto) 11.2 (2.0-14.0) % Eos % (Auto) 0.5 (0.0-5.0) % Baso % (Auto) 0.2 (0.0-2.0) % Neut # (Auto) 12.08 H (1.40-7.00) K/uL Lymph # (Auto) 2.69 (0.50-3.50) K/uL Snyder # (Auto) 1.87 H (0.00-1.00) K/uL Eos # (Auto) 0.08 (0.00-0.50) K/uL Baso # (Auto) 0.04 (0.00-0.20) K/uL Sodium 133 L (136-145) mmol/L Potassium 4.5 (3.5-5.1) mmol/L Chloride 97 L (98-107) mmol/L Carbon Dioxide 28.8 (21.0-32.0) mmol/L BUN 41 H (7-18) mg/dL Creatinine 1.62 H (0.51-1.17) mg/dL Est Cr Clr Drug Dosing 39.33 mL/min Estimated GFR (MDRD) 41 mL/min Glucose 198 H (74-106) mg/dL POC Glucose 208 H (65-110) mg/dl Calcium 8.7 (8.5-10.1) mg/dL Total Bilirubin 0.6 (0.2-1.0) mg/dL AST 27 (15-37) U/L ALT 44 (12-78) U/L Alkaline Phosphatase 102 (46-116) IU/L C-Reactive Protein 20.3 H (<=0.9) mg/dL Total Protein 5.8 L (6.4-8.2) g/dL Albumin 2.3 L (3.4-5.0) g/dL 02/22/19 02/22/19 02/22/19 Range/Units 07:29 11:37 17:09 WBC (4.0-10.2) K/uL RBC (4.33-5.41) M/uL Hgb (13.1-16.8) g/dL Hct (39.0-49.0) % MCV (84.0-98.0) fL MCH (28.2-33.3) pg MCHC (31.7-36.0) g/dL RDW (11.2-14.1) % Plt Count (150-350) K/uL Neut % (Auto) (45.0-80.0) % Lymph % (Auto) (10.0-50.0) % Snyder % (Auto) (2.0-14.0) % Eos % (Auto) (0.0-5.0) % Baso % (Auto) (0.0-2.0) % Neut # (Auto) (1.40-7.00) K/uL Lymph # (Auto) (0.50-3.50) K/uL Snyder # (Auto) (0.00-1.00) K/uL Eos # (Auto) (0.00-0.50) K/uL Baso # (Auto) (0.00-0.20) K/uL Sodium (136-145) mmol/L Potassium (3.5-5.1) mmol/L Chloride (98-107) mmol/L Carbon Dioxide (21.0-32.0) mmol/L BUN (7-18) mg/dL Creatinine (0.51-1.17) mg/dL Est Cr Clr Drug Dosing mL/min Estimated GFR (MDRD) mL/min Glucose (74-106) mg/dL POC Glucose 206 H 218 H 212 H (65-110) mg/dl Calcium (8.5-10.1) mg/dL Total Bilirubin (0.2-1.0) mg/dL AST (15-37) U/L ALT (12-78) U/L Alkaline Phosphatase (46-116) IU/L C-Reactive Protein (<=0.9) mg/dL Total Protein (6.4-8.2) g/dL Albumin (3.4-5.0) g/dL 02/22/19 Range/Units 20:06 WBC (4.0-10.2) K/uL RBC (4.33-5.41) M/uL Hgb (13.1-16.8) g/dL Hct (39.0-49.0) % MCV (84.0-98.0) fL MCH (28.2-33.3) pg MCHC (31.7-36.0) g/dL RDW (11.2-14.1) % Plt Count (150-350) K/uL Neut % (Auto) (45.0-80.0) % Lymph % (Auto) (10.0-50.0) % Snyder % (Auto) (2.0-14.0) % Eos % (Auto) (0.0-5.0) % Baso % (Auto) (0.0-2.0) % Neut # (Auto) (1.40-7.00) K/uL Lymph # (Auto) (0.50-3.50) K/uL Snyder # (Auto) (0.00-1.00) K/uL Eos # (Auto) (0.00-0.50) K/uL Baso # (Auto) (0.00-0.20) K/uL Sodium (136-145) mmol/L Potassium (3.5-5.1) mmol/L Chloride (98-107) mmol/L Carbon Dioxide (21.0-32.0) mmol/L BUN (7-18) mg/dL Creatinine (0.51-1.17) mg/dL Est Cr Clr Drug Dosing mL/min Estimated GFR (MDRD) mL/min Glucose (74-106) mg/dL POC Glucose 174 H (65-110) mg/dl Calcium (8.5-10.1) mg/dL Total Bilirubin (0.2-1.0) mg/dL AST (15-37) U/L ALT (12-78) U/L Alkaline Phosphatase (46-116) IU/L C-Reactive Protein (<=0.9) mg/dL Total Protein (6.4-8.2) g/dL Albumin (3.4-5.0) g/dL Murali Results Last 24 Hours: Microbiology 02/19/19 12:40 Aerobic Blood Culture - Preliminary Blood NO GROWTH AFTER 3 DAYS Anaerobic Blood Culture - Preliminary NO GROWTH AFTER 3 DAYS Med Orders - Current: Current Medications Acetaminophen (Tylenol) 650 mg PO Q4H PRN PRN Reason: Pain Last Admin: 02/22/19 08:12 Dose: 650 mg Hydrocodone Bitart/Acetaminophen (Merlin 325-5 Mg) 1 tab PO Q6H PRN PRN Reason: Pain (moderate 4-6) Last Admin: 02/22/19 19:54 Dose: 1 tab Albuterol/Ipratropium (Duoneb 3.0-0.5 Mg/3 Ml) 3 ml NEB QID SALOMÓN Last Admin: 02/22/19 19:11 Dose: 3 ml Albuterol/Ipratropium (Duoneb 3.0-0.5 Mg/3 Ml) 3 ml NEB Q4HRRT PRN PRN Reason: Shortness of Breath Last Admin: 02/22/19 02:32 Dose: 3 ml Allopurinol (Zyloprim) 300 mg PO QAM [facility] Last Admin: 02/22/19 08:19 Dose: 300 mg Arformoterol Tartrate (Brovana) 15 mcg INH Q12HR [facility] Last Admin: 02/22/19 19:11 Dose: 15 mcg Artificial Tears (Liquitears 1.4% Ophth Soln) 0 ml EYEBOTH DAILY [facility] Last Admin: 02/22/19 08:08 Dose: 1 drop Bisacodyl (Dulcolax) 10 mg RECTAL DAILY PRN PRN Reason: Constipation Last Admin: 02/22/19 15:47 Dose: 10 mg Carvedilol (Coreg) 12.5 mg PO Q12HR [facility] Last Admin: 02/22/19 19:12 Dose: 12.5 mg Cholecalciferol (Vitamin D3) 25 mcg PO DAILY [facility] Last Admin: 02/22/19 08:17 Dose: 25 mcg Cyanocobalamin (Vitamin B12) 1,000 mcg PO DAILY [facility] Last Admin: 02/22/19 08:16 Dose: 1,000 mcg Docusate Sodium (Colace) 100 mg PO BID [facility] Last Admin: 02/22/19 17:12 Dose: 100 mg Enoxaparin Sodium (Lovenox) 30 mg SUBCUT DAILY [facility] Last Admin: 02/22/19 08:03 Dose: 30 mg Finasteride (Proscar) 5 mg PO DAILY [facility] Last Admin: 02/22/19 08:18 Dose: 5 mg Furosemide (Lasix) 40 mg IVPUSH BIDDIURETIC [facility] Last Admin: 02/22/19 12:45 Dose: 40 mg Gabapentin (Neurontin) 300 mg PO TID [facility] Last Admin: 02/22/19 17:13 Dose: 300 mg Guaifenesin/Dextromethorphan (Robitussin Dm) 20 ml PO QID [facility] Last Admin: 02/22/19 19:18 Dose: 20 ml Hydrocortisone (Proctozone-Hc 2.5% Crm) 0 gm TOP BID PRN PRN Reason: Hemorrhoids Hydromorphone HCl (Dilaudid) 1 mg IVPUSH Q1H PRN PRN Reason: back pain Last Admin: 02/19/19 09:27 Dose: 1 mg Levofloxacin/Dextrose 500 mg/ (Premix) 100 mls @ 100 mls/hr IV Q24H [facility] Last Admin: 02/22/19 12:45 Dose: 100 mls/hr Metronidazole 500 mg/ Premix 100 mls @ 100 mls/hr IV Q8H [facility] Last Admin: 02/22/19 14:05 Dose: 100 mls/hr Insulin Glargine (Lantus) 20 unit SUBCUT BEDTIME [facility] Last Admin: 02/22/19 19:17 Dose: 20 units Insulin Human Lispro (Humalog) 8 unit SUBCUT TID@0800,1200,1800 [facility] Last Admin: 02/22/19 17:10 Dose: 8 unit Isosorbide Mononitrate (Imdur) 60 mg PO DAILY [facility] Last Admin: 02/22/19 08:16 Dose: 60 mg Loratadine (Claritin) 10 mg PO DAILY [facility] Last Admin: 02/22/19 08:15 Dose: 10 mg Magnesium Hydroxide (Milk Of Magnesia) 30 ml PO DAILY PRN PRN Reason: Constipation Last Admin: 02/21/19 08:51 Dose: 30 ml Magnesium Oxide (Magnesium Oxide) 400 mg PO BID [facility] Last Admin: 02/22/19 17:12 Dose: 400 mg Multivitamins/Minerals/Vitamin C (Tab-A-Prisca) 1 tab PO DAILY [facility] Last Admin: 02/22/19 08:15 Dose: 1 tab Non-Formulary Medication (Iron,Carbonyl/Ascorbic Acid [Vitron-C Tablet]) 1 each PO BID [facility] Omeprazole (Omeprazole) 20 mg PO BID [facility] Last Admin: 02/22/19 17:12 Dose: 20 mg Ondansetron HCl (Zofran Odt) 4 mg PO Q6H PRN PRN Reason: Nausea/Vomiting Potassium Chloride (Potassium Chloride Solution) 20 meq PO DAILY [facility] Last Admin: 02/22/19 08:06 Dose: 20 meq Sodium Chloride (Saline Flush) 10 ml FLUSH ASDIRECTED PRN PRN Reason: Keep Vein Open Last Admin: 02/22/19 05:55 Dose: 10 ml Sodium Chloride (Saline Flush) 10 ml FLUSH Q12HR [facility] Last Admin: 02/22/19 19:18 Dose: 10 ml Tamsulosin HCl (Flomax) 0.8 mg PO BEDTIME [facility] Last Admin: 02/22/19 19:12 Dose: 0.8 mg Discontinued Medications Arformoterol Tartrate (Brovana) 15 mcg INH BID [facility] Last Admin: 02/20/19 07:23 Dose: 15 mcg Carvedilol (Coreg) 12.5 mg PO BID [facility] Last Admin: 02/20/19 17:26 Dose: 12.5 mg Enoxaparin Sodium (Lovenox) 40 mg SUBCUT DAILY [facility] Last Admin: 02/21/19 07:50 Dose: 40 mg Furosemide (Lasix) 40 mg PO BID@08,14 [facility] Last Admin: 02/21/19 07:48 Dose: 40 mg Furosemide (Lasix) 40 mg PO DAILY [facility] Last Admin: 02/22/19 08:17 Dose: 40 mg Guaifenesin/Dextromethorphan (Robitussin Dm) 10 ml PO QID [facility] Last Admin: 02/22/19 11:41 Dose: 10 ml Hydrocortisone (Proctozone-Hc 2.5% Crm) 1 gm TOP BID [facility] Last Admin: 02/20/19 07:20 Dose: 1 applic Lactated Ringer's (Ringers, Lactated) 1,000 mls @ 125 mls/hr IV ASDIRECTED [facility] Last Admin: 02/19/19 12:53 Dose: 125 mls/hr Piperacillin Sod/Tazobactam (Sod 3.375 gm/ Sodium Chloride) 100 mls @ 200 mls/ hr IV Q6H [facility] Last Admin: 02/20/19 17:21 Dose: 200 mls/hr Prednisone (Prednisone) 40 mg PO DAILY [facility] Last Admin: 02/20/19 07:29 Dose: 40 mg Sodium Chloride (Saline Flush) 10 ml FLUSH ASDIRECTED PRN PRN Reason: Keep Vein Open Last Admin: 02/20/19 21:14 Dose: 10 ml Tamsulosin HCl (Flomax) 0.4 mg PO DAILY [facility] Last Admin: 02/20/19 07:26 Dose: 0.4 mg - Exam Quality Assessment: Supplemental Oxygen, Urine Catheter, DVT Prophylaxis General: No Acute Distress HEENT: Mucous Membr. Moist/[place] Neck: Trachea Midline, No JVD Lungs: Normal Respiratory Effort, Decreased Breath Sounds, Rhonchi Cardiovascular: Regular Rate, Regular Rhythm GI/Abdominal Exam: Normal Bowel Sounds, Soft, Non-Tender (Male) Exam: Other (butler catheter) Extremities: Non-Tender Skin: Ecchymosis Neurological: No New Focal Deficit, Other (generalized weakness) Psy/Mental Status: Normal Affect, Normal Mood - Problem List & Annotations (1) Pneumonia SNOMED Code(s): 474882974 Code(s): J18.9 - PNEUMONIA, UNSPECIFIED ORGANISM Status: Acute Priority: High Current Visit: Yes Qualifiers: Pneumonia type: due to unspecified organism Laterality: left Lung location: lower lobe of lung Qualified Code(s): J18.1 - Lobar pneumonia, unspecified organism Annotation/Comment:: (2) Emphysema lung SNOMED Code(s): 46636595 Code(s): J43.9 - EMPHYSEMA, UNSPECIFIED Status: Chronic Current Visit: No Qualifiers: Emphysema type: centrilobular Qualified Code(s): J43.2 - Centrilobular emphysema (3) Urinary retention with incomplete bladder emptying SNOMED Code(s): 945075935 Code(s): R33.9 - RETENTION OF URINE, UNSPECIFIED Status: Acute Priority: High Current Visit: Yes (4) Low back pain SNOMED Code(s): 750389828 Code(s): M54.5 - LOW BACK PAIN Status: Acute Priority: High Current Visit: Yes Qualifiers: Chronicity: acute Back pain laterality: midline Sciatica presence: without sciatica Qualified Code(s): M54.5 - Low back pain (5) Anemia SNOMED Code(s): 767160543 Code(s): D64.9 - ANEMIA, UNSPECIFIED Status: Chronic Priority: Low Current Visit: No Qualifiers: Anemia type: other cause Other causes of anemia: chronic disease, other Qualified Code(s): D63.8 - Anemia in other chronic diseases classified elsewhere (6) COPD (chronic obstructive pulmonary disease) SNOMED Code(s): 25319111 Code(s): J44.9 - CHRONIC OBSTRUCTIVE PULMONARY DISEASE, UNSPECIFIED Status : Chronic Priority: High Current Visit: No Qualifiers: COPD type: COPD with acute exacerbation Qualified Code(s): J44.1 - Chronic obstructive pulmonary disease with (acute) exacerbation (7) Chronic GERD SNOMED Code(s): 902586933, 022790755 Code(s): K21.9 - GASTRO-ESOPHAGEAL REFLUX DISEASE WITHOUT ESOPHAGITIS Status: Chronic Priority: Medium Current Visit: No Annotation/Comment:: Chronic GERD as per history (8) Chronic cerebral ischemia SNOMED Code(s): 755439776 Code(s): I67.82 - CEREBRAL ISCHEMIA Status: Chronic Priority: Medium Current Visit: No (9) Chronic diastolic (congestive) heart failure SNOMED Code(s): 377414841, 124305382 Code(s): I50.32 - CHRONIC DIASTOLIC (CONGESTIVE) HEART FAILURE Status: Chronic Priority: Medium Current Visit: No (10) Chronic kidney disease (CKD) SNOMED Code(s): 331103632 Code(s): N18.9 - CHRONIC KIDNEY DISEASE, UNSPECIFIED Status: Chronic Priority: Low Current Visit: No Qualifiers: Chronic kidney disease stage: unspecified stage Qualified Code(s): N18.9 - Chronic kidney disease, unspecified (11) Chronic respiratory failure with hypoxia SNOMED Code(s): 472718538 Code(s): J96.11 - CHRONIC RESPIRATORY FAILURE WITH HYPOXIA Status: Chronic Priority: High Current Visit: Yes Annotation/Comment:: Oxygen dependent COPD (12) Comfort measures only status SNOMED Code(s): 63684135496154 Code(s): Z51.5 - ENCOUNTER FOR PALLIATIVE CARE Status: Chronic Priority: High Current Visit: Yes (13) Coronary artery disease SNOMED Code(s): 38960931 Code(s): I25.10 - ATHSCL HEART DISEASE OF [place] CORONARY ARTERY W/O ANG PCTRS Status: Chronic Priority: Medium Current Visit: No Qualifiers: Coronary Disease-Associated Artery/Lesion type: [place] artery [place] vs. transplanted heart: [place] heart Associated angina: without angina Qualified Code(s): I25.10 - Atherosclerotic heart disease of [place] coronary artery without angina pectoris (14) DNI (do not intubate) SNOMED Code(s): 683809413 Code(s): Z78.9 - OTHER SPECIFIED HEALTH STATUS Status: Chronic Current Visit: Yes (15) DNR (do not resuscitate) Status: Chronic Current Visit: Yes (16) Diabetes mellitus SNOMED Code(s): 97003498 Code(s): E11.9 - TYPE 2 DIABETES MELLITUS WITHOUT COMPLICATIONS Status: Chronic Priority: Medium Current Visit: No Annotation/Comment:: Generalized weakness secondary to pneumonia with multiple falls (17) Dyslipidemia SNOMED Code(s): 528799311 Code(s): E78.5 - HYPERLIPIDEMIA, UNSPECIFIED Status: Chronic Priority: Medium Current Visit: No (18) Exertional dyspnea SNOMED Code(s): 56649655 Code(s): R06.09 - OTHER FORMS OF DYSPNEA Status: Chronic Priority: High Current Visit: Yes (19) Generalized weakness SNOMED Code(s): 24241444 Code(s): R53.1 - WEAKNESS Status: Chronic Priority: High Current Visit : Yes (20) Gout SNOMED Code(s): 43361132 Code(s): M10.9 - GOUT, UNSPECIFIED Status: Chronic Priority: Low Current Visit: No Qualifiers: Gout site: multiple sites Gout etiology: due to renal impairment Chronicity: chronic Presence of tophus: without tophus Qualified Code(s): M1A.39X0 - Chronic gout due to renal impairment, multiple sites, without tophus (tophi) (21) HTN, Benign hypertension SNOMED Code(s): 46197081 Code(s): I10 - ESSENTIAL (PRIMARY) HYPERTENSION Status: Chronic Priority : Medium Current Visit: No (22) Heart disease SNOMED Code(s): 98382134 Code(s): I51.9 - HEART DISEASE, UNSPECIFIED Status: Chronic Priority: Medium Current Visit: No Annotation/Comment:: (23) Hemorrhoids SNOMED Code(s): 85786598 Code(s): K64.9 - UNSPECIFIED HEMORRHOIDS Status: Chronic Priority: Medium Current Visit: No Qualifiers: Hemorrhoid type: perianal venous thrombosis Qualified Code(s): K64.5 - Perianal venous thrombosis (24) History of ESBL Klebsiella pneumoniae infection SNOMED Code(s): 266867651 Code(s): Z86.19 - PERSONAL HISTORY OF OTHER INFECTIOUS AND PARASITIC DISEASES Status: Chronic Priority: Medium Current Visit: No (25) Hypoalbuminemia SNOMED Code(s): 292351106 Code(s): E88.09 - OTH DISORDERS OF PLASMA-PROTEIN METABOLISM, NEC Status: Chronic Priority: Medium Current Visit: No (26) Hypomagnesemia SNOMED Code(s): 819646103 Code(s): E83.42 - HYPOMAGNESEMIA Status: Chronic Priority: Medium Current Visit: No Onset Date: 06/29/16 (27) Leukocytosis SNOMED Code(s): 244253174, 758938548 Code(s): D72.829 - ELEVATED WHITE BLOOD CELL COUNT, UNSPECIFIED Status: Chronic Priority: Medium Current Visit: No Qualifiers: Leukocytosis type: unspecified Qualified Code(s): D72.829 - Elevated white blood cell count, unspecified Annotation/Comment:: Elevated white count secondary to pneumonia (28) Neuropathy SNOMED Code(s): 613346554 Code(s): G62.9 - POLYNEUROPATHY, UNSPECIFIED Status: Chronic Priority: Medium Current Visit: No (29) Obesity (BMI 30-39.9) SNOMED Code(s): 775955730, 584504796 Code(s): E66.9 - OBESITY, UNSPECIFIED Status: Chronic Priority: Medium Current Visit: No (30) Obstructive sleep apnea on CPAP SNOMED Code(s): 26503146 Code(s): G47.33 - OBSTRUCTIVE SLEEP APNEA (ADULT) (PEDIATRIC); Z99.89 - DEPENDENCE ON OTHER ENABLING MACHINES AND DEVICES Status: Chronic Priority: Low Current Visit: No Annotation/Comment:: (31) Old cerebrovascular accident (CVA) without late effect SNOMED Code(s): 535678680 Code(s): Z86.73 - PRSNL HX OF TIA (TIA), AND CEREB INFRC W/O RESID DEFICITS Status: Chronic Priority: Medium Current Visit: No (32) Osteoarthritis SNOMED Code(s): 230438045 Code(s): M19.90 - UNSPECIFIED OSTEOARTHRITIS, UNSPECIFIED SITE Status: Chronic Priority: Medium Current Visit: No (33) Oxygen dependent SNOMED Code(s): 789755771249 Code(s): Z99.81 - DEPENDENCE ON SUPPLEMENTAL OXYGEN Status: Chronic Priority: High Current Visit: No (34) Physical deconditioning SNOMED Code(s): 35653898638505 Code(s): R53.81 - OTHER MALAISE Status: Chronic Priority: High Current Visit: No - Problem List Review Problem List Initiated/Reviewed/Updated: Yes - My Orders Last 24 Hours: My Active Orders 02/22/19 08:00 Lumbar Spine wo Cont [CT] Routine Enoxaparin [Lovenox] 30 mg SUBCUT DAILY 02/22/19 12:00 Dextromethorphan/guaiFENesin [Robitussin DM] 20 ml PO QID Furosemide [Lasix] 40 mg IVPUSH BIDDIURETIC 02/22/19 15:21 Bisacodyl [Dulcolax] 10 mg RECTAL DAILY PRN 02/23/19 05:11 CBC WITH AUTO DIFF [HEME] DAILY CMP [COMPREHENSIVE METABOLIC PN,CMP] [CHEM] DAILY CRP [C-REACTIVE PROTEIN] [CHEM] DAILY PRO B-TYPE NATRIUR PEPT,BNPPRO [CHEM] Routine SEDIMENTATION RATE AUTO [HEME] Routine - Plan Plan:: 02/20/19 Dusty Seaman MD Fever, weakness. Pneumonia, emphysema, UTI, urinary retention (~900ml) butler in place. Continue antibiotics. C&S pending. PT-OT and discharge planning. 02/21/19 Dusty Seaman MD He does not feel well. Short of breath. Severe back pain. Constipation. Orders adjusted. Discussed and explained with him and his palliative care/hospice care. He says I hope I'm not ready for that yet. 02/22/19 Dusty Seaman MD Still with significant weakness and back pain. CT of lumbar spine pending. Labs not improving. Continue IV antibiotics. Still complain of constipation.
[2019-02-23] MEDS: Albuterol/Ipratropium 3.0-0.5 MG/3 ML Neb Soln NEB PRN (02:19)
[2019-02-23] MEDS: metroNIDAZOLE/Normal Saline 500 MG in Premix Bag 1 BAG IV SCH ×2 (05:11→13:43)
[2019-02-23] MEDS: Carvedilol 12.5 MG Tab PO SCH (07:36)
[2019-02-23] MEDS: Isosorbide Mononitrate 60 MG Tab.ER PO SCH (07:36)
[2019-02-23] MEDS: Polyvinyl Alcohol 1.4% Ophth Soln 15 ML Bottle EYEBOTH SCH (07:37)
[2019-02-23] MEDS: Magnesium Oxide 400 MG Tab PO SCH ×2 (07:37→09:09)
[2019-02-23] MEDS: Gabapentin 300 MG Cap PO SCH ×2 (07:40→09:09)
[2019-02-23] MEDS: Omeprazole 20 MG Cap.CR PO SCH ×2 (07:40→09:09)
[2019-02-23] MEDS: Allopurinol 100 MG Tab PO SCH ×2 (07:41→09:09)
[2019-02-23] MEDS: Finasteride 5 MG Tab PO SCH ×2 (07:41→09:09)
[2019-02-23] MEDS: Potassium Chloride 10% 20 MEQ/15 ML Soln 15 ML UD Cup PO SCH ×2 (07:41→09:09)
[2019-02-23] MEDS: guaiFENesin/Dextromethorphan 100-10 MG/5 ML Soln 10 ML Cup PO SCH ×4 (07:41→15:18)
[2019-02-23] MEDS: Albuterol/Ipratropium 3.0-0.5 MG/3 ML Neb Soln NEB SCH ×3 (07:42→15:18)
[2019-02-23] MEDS: Sodium Chloride 0.9% 10 ML Syringe FLUSH SCH ×2 (07:42→12:16)
[2019-02-23] MEDS: Insulin Lispro 100 Units/ML 3 ML Vial SUBCUT SCH ×2 (07:44→09:09)
[2019-02-23] MEDS: Furosemide 40 MG/4 ML VIAL IVPUSH SCH ×2 (07:44→12:14)
[2019-02-23] MEDS ORDERED: Magnesium Citrate Solution 296 ML Bottle PO ONE (08:00)
[2019-02-23] MEDS ORDERED: Polyethylene Glycol 3350 Powder 17 GM Packet PO ONE (08:00)
[2019-02-23] MEDS ORDERED: Pantoprazole 80 MG in Sodium Chloride 0.9% 100 ML IV SCH (08:15)
[2019-02-23] MEDS ORDERED: Sodium Chloride 0.9% 500 ML IV SCH (08:30)
--- NOTE | 2019-02-23 08:48 | PCM.SN ---
- Free Text/Narrative Note: 02-23-19 Nate Darling PA-C Received call from RN this morning that patient had had a large loose BM in the night, then another one this morning with what had the look and smell of blood. Hematest stool ordered and was positive. Lovenox DC'd. He is not on ASA or prednisone. Started the Nexium IV infusion after consult with Rachid Connolly, CbD. Held all po meds except Coreg, Imdur and Lasix. Held AM dose of Humalog as well. Changed diet to Clear Liquids. Noted downward trend of hgb since admit, no acute drop. Left message on Dr. Montano' cellphone voice mail to update on these things.
[2019-02-23] MEDS: Acetaminophen/HYDROcodone 325-5 MG Tab PO PRN ×2 (09:38→17:59)
[2019-02-23] MEDS: Levofloxacin/Dextrose 5%-Water 500 MG in Premix Bag 1 BAG IV SCH (12:14)
[2019-02-23] MEDS: Non-Formulary Medication 1 Each (Iron,Carbonyl/Ascorbic Acid [Vitron-C Tablet] 1 EACH) PO SCH ×3 (13:10→14:37)
[2019-02-23] MEDS: Acetaminophen 325 MG Tab PO PRN (13:44)
[2019-02-23] MEDS: Sodium Chloride 0.9% 10 ML Syringe FLUSH PRN (13:49)
[2019-02-23 15:39] VITALS: BP 141/59; PULSE 91
--- NOTE | 2019-02-23 22:39 | PCM.PN ---
- General Info Date of Service: 02/23/19 Functional Status: Reports: New Symptoms (maroon stools, hemetest +) - Review of Systems General: Reports: Weakness HEENT: Reports: No Symptoms Pulmonary: Reports: Shortness of Breath, Cough Cardiovascular: Reports: No Symptoms Gastrointestinal: Reports: Abdominal Pain, Decreased Appetite, Melena Genitourinary: Reports: Retention Musculoskeletal: Reports: Back Pain Skin: Reports: Bruising Neurological: Reports: Weakness Psychiatric: Reports: No Symptoms - Patient Data Vitals - Most Recent: Last Vital Signs Temp 98.2 F 02/23/19 15:38 Pulse 91 02/23/19 15:38 Resp 17 02/23/19 15:38 BP 141/59 H 02/23/19 15:38 Pulse Ox 97 02/23/19 15:38 Weight - Most Recent: 270 lb I&O - Last 24 Hours: Intake & Output 02/23/19 02/23/19 02/23/19 06:59 14:59 22:59 Intake Total 200 360 710 Output Total 300 575 Balance -100 -215 710 Lab Results Last 24 Hours: Laboratory Results - last 24 hr 02/23/19 02/23/19 02/23/19 Range/Units 06:58 07:20 07:30 WBC 17.0 H (4.0-10.2) K/uL RBC 2.68 L (4.33-5.41) M/uL Hgb 9.9 L (13.1-16.8) g/dL Hct 29.4 L (39.0-49.0) % MCV 109.7 H (84.0-98.0) fL MCH 36.9 H (28.2-33.3) pg MCHC 33.7 (31.7-36.0) g/dL RDW 17.8 H (11.2-14.1) % Plt Count 123 L (150-350) K/uL MPV (7.00-11.50) fL Neut % (Auto) 74.6 (45.0-80.0) % Lymph % (Auto) 13.3 (10.0-50.0) % [place] % (Auto) 11.2 (2.0-14.0) % Eos % (Auto) 0.7 (0.0-5.0) % Baso % (Auto) 0.2 (0.0-2.0) % Neut # (Auto) 12.64 H (1.40-7.00) K/uL Lymph # (Auto) 2.25 (0.50-3.50) K/uL [place] # (Auto) 1.90 H (0.00-1.00) K/uL Eos # (Auto) 0.12 (0.00-0.50) K/uL Baso # (Auto) 0.04 (0.00-0.20) K/uL ESR 114 H (0-20) mm/hr Sodium 133 L (136-145) mmol/L Potassium 4.1 (3.5-5.1) mmol/L Chloride 97 L (98-107) mmol/L Carbon Dioxide 30.9 (21.0-32.0) mmol/L BUN 41 H (7-18) mg/dL Creatinine 1.46 H (0.51-1.17) mg/dL Est Cr Clr Drug Dosing 43.64 mL/min Estimated GFR (MDRD) 46 mL/min Glucose 160 H (74-106) mg/dL POC Glucose 183 H (65-110) mg/dl Calcium 8.3 L (8.5-10.1) mg/dL Total Bilirubin 0.7 (0.2-1.0) mg/dL AST 21 (15-37) U/L ALT 35 (12-78) U/L Alkaline Phosphatase 101 (46-116) IU/L C-Reactive Protein 24.1 H (<=0.9) mg/dL NT-Pro-B Natriuret Pep 1697 H (0-125) pg/mL Total Protein 5.5 L (6.4-8.2) g/dL Albumin 2.1 L (3.4-5.0) g/dL Blood Type Gel Antibody Screen 02/23/19 02/23/19 02/23/19 Range/Units 11:28 11:50 12:00 WBC 15.9 H (4.0-10.2) K/uL RBC 2.65 L (4.33-5.41) M/uL Hgb 9.6 L (13.1-16.8) g/dL Hct 29.7 L (39.0-49.0) % MCV 112.1 H (84.0-98.0) fL MCH 36.2 H (28.2-33.3) pg MCHC 32.3 (31.7-36.0) g/dL RDW 17.8 H (11.2-14.1) % Plt Count 126 L (150-350) K/uL MPV 9.50 (7.00-11.50) fL Neut % (Auto) (45.0-80.0) % Lymph % (Auto) (10.0-50.0) % [place] % (Auto) (2.0-14.0) % Eos % (Auto) (0.0-5.0) % Baso % (Auto) (0.0-2.0) % Neut # (Auto) (1.40-7.00) K/uL Lymph # (Auto) (0.50-3.50) K/uL [place] # (Auto) (0.00-1.00) K/uL Eos # (Auto) (0.00-0.50) K/uL Baso # (Auto) (0.00-0.20) K/uL ESR (0-20) mm/hr Sodium (136-145) mmol/L Potassium (3.5-5.1) mmol/L Chloride (98-107) mmol/L Carbon Dioxide (21.0-32.0) mmol/L BUN (7-18) mg/dL Creatinine (0.51-1.17) mg/dL Est Cr Clr Drug Dosing mL/min Estimated GFR (MDRD) mL/min Glucose (74-106) mg/dL POC Glucose 194 H (65-110) mg/dl Calcium (8.5-10.1) mg/dL Total Bilirubin (0.2-1.0) mg/dL AST (15-37) U/L ALT (12-78) U/L Alkaline Phosphatase (46-116) IU/L C-Reactive Protein (<=0.9) mg/dL NT-Pro-B Natriuret Pep (0-125) pg/mL Total Protein (6.4-8.2) g/dL Albumin (3.4-5.0) g/dL Blood Type A POSITIVE Gel Antibody Screen Negative 02/23/19 02/23/19 Range/Units 16:54 17:42 WBC 17.4 H (4.0-10.2) K/uL RBC 2.70 L (4.33-5.41) M/uL Hgb 9.9 L (13.1-16.8) g/dL Hct 30.1 L (39.0-49.0) % MCV 111.5 H (84.0-98.0) fL MCH 36.7 H (28.2-33.3) pg MCHC 32.9 (31.7-36.0) g/dL RDW 18.0 H (11.2-14.1) % Plt Count 132 L (150-350) K/uL MPV 10.00 (7.00-11.50) fL Neut % (Auto) (45.0-80.0) % Lymph % (Auto) (10.0-50.0) % [place] % (Auto) (2.0-14.0) % Eos % (Auto) (0.0-5.0) % Baso % (Auto) (0.0-2.0) % Neut # (Auto) (1.40-7.00) K/uL Lymph # (Auto) (0.50-3.50) K/uL [place] # (Auto) (0.00-1.00) K/uL Eos # (Auto) (0.00-0.50) K/uL Baso # (Auto) (0.00-0.20) K/uL ESR (0-20) mm/hr Sodium (136-145) mmol/L Potassium (3.5-5.1) mmol/L Chloride (98-107) mmol/L Carbon Dioxide (21.0-32.0) mmol/L BUN (7-18) mg/dL Creatinine (0.51-1.17) mg/dL Est Cr Clr Drug Dosing mL/min Estimated GFR (MDRD) mL/min Glucose (74-106) mg/dL POC Glucose 205 H (65-110) mg/dl Calcium (8.5-10.1) mg/dL Total Bilirubin (0.2-1.0) mg/dL AST (15-37) U/L ALT (12-78) U/L Alkaline Phosphatase (46-116) IU/L C-Reactive Protein (<=0.9) mg/dL NT-Pro-B Natriuret Pep (0-125) pg/mL Total Protein (6.4-8.2) g/dL Albumin (3.4-5.0) g/dL Blood Type Gel Antibody Screen Murali Results Last 24 Hours: Microbiology 02/19/19 12:40 Aerobic Blood Culture - Preliminary Blood NO GROWTH AFTER 4 DAYS Anaerobic Blood Culture - Preliminary NO GROWTH AFTER 4 DAYS 02/19/19 16:30 Urine Culture - Final Urine, Catheterized Enterococcus Faecium 02/23/19 07:55 Stool Occult Blood (MURALI) - Final Stool / Feces Med Orders - Current: Current Medications Discontinued Medications Acetaminophen (Tylenol) 650 mg PO Q4H PRN PRN Reason: Pain Last Admin: 02/23/19 13:44 Dose: 650 mg Hydrocodone Bitart/Acetaminophen ([place] 325-5 Mg) 1 tab PO Q6H PRN PRN Reason: Pain (moderate 4-6) Last Admin: 02/23/19 17:59 Dose: 1 tab Albuterol/Ipratropium (Duoneb 3.0-0.5 Mg/3 Ml) 3 ml NEB QID [facility] Last Admin: 02/23/19 15:18 Dose: 3 ml Albuterol/Ipratropium (Duoneb 3.0-0.5 Mg/3 Ml) 3 ml NEB Q4HRRT PRN PRN Reason: Shortness of Breath Last Admin: 02/23/19 02:19 Dose: 3 ml Allopurinol (Zyloprim) 300 mg PO QAM [facility] Last Admin: 02/23/19 09:09 Dose: Not Given Arformoterol Tartrate (Brovana) 15 mcg INH BID [facility] Last Admin: 02/20/19 07:23 Dose: 15 mcg Arformoterol Tartrate (Brovana) 15 mcg INH Q12HR [facility] Last Admin: 02/22/19 19:11 Dose: 15 mcg Artificial Tears (Liquitears 1.4% Ophth Soln) 0 ml EYEBOTH DAILY [facility] Last Admin: 02/23/19 07:37 Dose: 1 drop Bisacodyl (Dulcolax) 10 mg RECTAL DAILY PRN PRN Reason: Constipation Last Admin: 02/22/19 15:47 Dose: 10 mg Carvedilol (Coreg) 12.5 mg PO BID [facility] Last Admin: 02/20/19 17:26 Dose: 12.5 mg Carvedilol (Coreg) 12.5 mg PO Q12HR [facility] Last Admin: 02/23/19 07:36 Dose: 12.5 mg Cholecalciferol (Vitamin D3) 25 mcg PO DAILY [facility] Last Admin: 02/22/19 08:17 Dose: 25 mcg Cyanocobalamin (Vitamin B12) 1,000 mcg PO DAILY [facility] Last Admin: 02/22/19 08:16 Dose: 1,000 mcg Docusate Sodium (Colace) 100 mg PO BID [facility] Last Admin: 02/22/19 17:12 Dose: 100 mg Enoxaparin Sodium (Lovenox) 40 mg SUBCUT DAILY [facility] Last Admin: 02/21/19 07:50 Dose: 40 mg Enoxaparin Sodium (Lovenox) 30 mg SUBCUT DAILY [facility] Last Admin: 02/22/19 08:03 Dose: 30 mg Finasteride (Proscar) 5 mg PO DAILY [facility] Last Admin: 02/23/19 09:09 Dose: Not Given Furosemide (Lasix) 40 mg PO BID@08,14 [facility] Last Admin: 02/21/19 07:48 Dose: 40 mg Furosemide (Lasix) 40 mg PO DAILY [facility] Last Admin: 02/22/19 08:17 Dose: 40 mg Furosemide (Lasix) 40 mg IVPUSH BIDDIURETIC [facility] Last Admin: 02/23/19 12:14 Dose: 40 mg Gabapentin (Neurontin) 300 mg PO TID [facility] Last Admin: 02/23/19 09:09 Dose: Not Given Guaifenesin/Dextromethorphan (Robitussin Dm) 10 ml PO QID [facility] Last Admin: 02/22/19 11:41 Dose: 10 ml Guaifenesin/Dextromethorphan (Robitussin Dm) 20 ml PO QID [facility] Last Admin: 02/23/19 15:18 Dose: 20 ml Hydrocortisone (Proctozone-Hc 2.5% Crm) 1 gm TOP BID [facility] Last Admin: 02/20/19 07:20 Dose: 1 applic Hydrocortisone (Proctozone-Hc 2.5% Crm) 0 gm TOP BID PRN PRN Reason: Hemorrhoids Hydromorphone HCl (Dilaudid) 1 mg IVPUSH Q1H PRN PRN Reason: back pain Last Admin: 02/19/19 09:27 Dose: 1 mg Lactated Ringer's (Ringers, Lactated) 1,000 mls @ 125 mls/hr IV ASDIRECTED [facility] Last Admin: 02/19/19 12:53 Dose: 125 mls/hr Levofloxacin/Dextrose 500 mg/ (Premix) 100 mls @ 100 mls/hr IV Q24H [facility] Last Admin: 02/23/19 12:14 Dose: 100 mls/hr Piperacillin Sod/Tazobactam (Sod 3.375 gm/ Sodium Chloride) 100 mls @ 200 mls/ hr IV Q6H [facility] Last Admin: 02/20/19 17:21 Dose: 200 mls/hr Metronidazole 500 mg/ Premix 100 mls @ 100 mls/hr IV Q8H [facility] Last Admin: 02/23/19 13:43 Dose: 100 mls/hr Pantoprazole Sodium 80 mg/ (Sodium Chloride) 100 mls @ 10 mls/hr IV .Continuous [facility] Last Admin: 02/23/19 08:58 Dose: 10 mls/hr Sodium Chloride (Normal Saline) 500 mls @ 20 mls/hr IV ASDIRECTED [facility] Last Admin: 02/23/19 08:58 Dose: 20 mls/hr Insulin Glargine (Lantus) 20 unit SUBCUT BEDTIME [facility] Last Admin: 02/22/19 19:17 Dose: 20 units Insulin Human Lispro (Humalog) 8 unit SUBCUT TID@0800,1200,1800 [facility] Last Admin: 02/23/19 09:09 Dose: Not Given Isosorbide Mononitrate (Imdur) 60 mg PO DAILY [facility] Last Admin: 02/23/19 07:36 Dose: 60 mg Loratadine (Claritin) 10 mg PO DAILY [facility] Last Admin: 02/22/19 08:15 Dose: 10 mg Magnesium Citrate (Citrate Of Magnesia) 296 ml PO ONETIME ONE Stop: 02/23/19 08:01 Magnesium Hydroxide (Milk Of Magnesia) 30 ml PO DAILY PRN PRN Reason: Constipation Last Admin: 02/21/19 08:51 Dose: 30 ml Magnesium Oxide (Magnesium Oxide) 400 mg PO BID [facility] Last Admin: 02/23/19 09:09 Dose: Not Given Multivitamins/Minerals/Vitamin C (Tab-A-Prisca) 1 tab PO DAILY [facility] Last Admin: 02/22/19 08:15 Dose: 1 tab Non-Formulary Medication (Iron,Carbonyl/Ascorbic Acid [Vitron-C Tablet]) 1 each PO BID [facility] Last Admin: 02/23/19 14:37 Dose: Not Given Omeprazole (Omeprazole) 20 mg PO BID [facility] Last Admin: 02/23/19 09:09 Dose: Not Given Ondansetron HCl (Zofran Odt) 4 mg PO Q6H PRN PRN Reason: Nausea/Vomiting Polyethylene Glycol (Miralax) 17 gm PO ONETIME ONE Stop: 02/23/19 08:01 Potassium Chloride (Potassium Chloride Solution) 20 meq PO DAILY [facility] Last Admin: 02/23/19 09:09 Dose: Not Given Prednisone (Prednisone) 40 mg PO DAILY [facility] Last Admin: 02/20/19 07:29 Dose: 40 mg Senna/Docusate Sodium (Senna Plus) 2 tab PO BID [facility] Last Admin: 02/23/19 09:09 Dose: Not Given Sodium Chloride (Saline Flush) 10 ml FLUSH ASDIRECTED PRN PRN Reason: Keep Vein Open Last Admin: 02/20/19 21:14 Dose: 10 ml Sodium Chloride (Saline Flush) 10 ml FLUSH ASDIRECTED PRN PRN Reason: Keep Vein Open Last Admin: 02/23/19 13:49 Dose: 10 ml Sodium Chloride (Saline Flush) 10 ml FLUSH Q12HR [facility] Last Admin: 02/23/19 12:16 Dose: 10 ml Tamsulosin HCl (Flomax) 0.4 mg PO DAILY [facility] Last Admin: 02/20/19 07:26 Dose: 0.4 mg Tamsulosin HCl (Flomax) 0.8 mg PO BEDTIME [facility] Last Admin: 02/22/19 19:12 Dose: 0.8 mg - Exam Quality Assessment: Supplemental Oxygen, Urine Catheter, DVT Prophylaxis ( stopped due to GI bleed) General: Alert, Cooperative HEENT: EOMI, Mucous Membr. Moist/[place] Neck: Trachea Midline, No JVD Lungs: Normal Respiratory Effort, Decreased Breath Sounds, Rhonchi Cardiovascular: Regular Rate, Regular Rhythm GI/Abdominal Exam: Guarding, Rebound, Tender, Abnormal Bowel Sounds (hyper) (Male) Exam: Other (butler catheter) Back Exam: Decreased Range of Motion, Vertebral Tenderness (lumbar) Extremities: Non-Tender Skin: Ecchymosis Neurological: No New Focal Deficit, Other (generalized weakness) Psy/Mental Status: Alert, Normal Affect, Normal Mood, Other (poor insight into his personal health status) - Problem List & Annotations (1) GI bleed SNOMED Code(s): 55094662 Code(s): K92.2 - GASTROINTESTINAL HEMORRHAGE, UNSPECIFIED Status: Acute Priority: High Qualifiers: GI bleed type/associated pathology: melena Qualified Code(s): K92.1 - Melena (2) Enterococcus faecalis infection SNOMED Code(s): 559939198 Code(s): B95.2 - ENTEROCOCCUS THE CAUSE OF DISEASES CLASSIFIED ELSEWHERE Status: Acute Priority: High (3) Pneumonia SNOMED Code(s): 346829928 Code(s): J18.9 - PNEUMONIA, UNSPECIFIED ORGANISM Status: Acute Priority: High Qualifiers: Pneumonia type: due to unspecified organism Laterality: left Lung location: lower lobe of lung Qualified Code(s): J18.1 - Lobar pneumonia, unspecified organism Annotation/Comment:: (4) Emphysema lung SNOMED Code(s): 96837681 Code(s): J43.9 - EMPHYSEMA, UNSPECIFIED Status: Chronic Qualifiers: Emphysema type: centrilobular Qualified Code(s): J43.2 - Centrilobular emphysema (5) Urinary retention with incomplete bladder emptying SNOMED Code(s): 603454786 Code(s): R33.9 - RETENTION OF URINE, UNSPECIFIED Status: Acute Priority: High (6) Low back pain SNOMED Code(s): 853031890 Code(s): M54.5 - LOW BACK PAIN Status: Acute Priority: High Qualifiers: Chronicity: acute Back pain laterality: midline Sciatica presence: without sciatica Qualified Code(s): M54.5 - Low back pain (7) Anemia SNOMED Code(s): 032928744 Code(s): D64.9 - ANEMIA, UNSPECIFIED Status: Chronic Priority: Low Qualifiers: Anemia type: other cause Other causes of anemia: chronic disease, other Qualified Code(s): D63.8 - Anemia in other chronic diseases classified elsewhere (8) COPD (chronic obstructive pulmonary disease) SNOMED Code(s): 13997697 Code(s): J44.9 - CHRONIC OBSTRUCTIVE PULMONARY DISEASE, UNSPECIFIED Status : Chronic Priority: High Qualifiers: COPD type: COPD with acute exacerbation Qualified Code(s): J44.1 - Chronic obstructive pulmonary disease with (acute) exacerbation (9) Chronic GERD SNOMED Code(s): 779952130, 919622515 Code(s): K21.9 - GASTRO-ESOPHAGEAL REFLUX DISEASE WITHOUT ESOPHAGITIS Status: Chronic Priority: Medium Annotation/Comment:: Chronic GERD as per history (10) Chronic cerebral ischemia SNOMED Code(s): 850111475 Code(s): I67.82 - CEREBRAL ISCHEMIA Status: Chronic Priority: Medium (11) Chronic diastolic (congestive) heart failure SNOMED Code(s): 317668833, 450298468 Code(s): I50.32 - CHRONIC DIASTOLIC (CONGESTIVE) HEART FAILURE Status: Chronic Priority: Medium (12) Chronic kidney disease (CKD) SNOMED Code(s): 154240167 Code(s): N18.9 - CHRONIC KIDNEY DISEASE, UNSPECIFIED Status: Chronic Priority: Low Qualifiers: Chronic kidney disease stage: unspecified stage Qualified Code(s): N18.9 - Chronic kidney disease, unspecified (13) Chronic respiratory failure with hypoxia SNOMED Code(s): 548224627 Code(s): J96.11 - CHRONIC RESPIRATORY FAILURE WITH HYPOXIA Status: Chronic Priority: High Annotation/Comment:: Oxygen dependent COPD (14) Comfort measures only status SNOMED Code(s): 44878171432270 Code(s): Z51.5 - ENCOUNTER FOR PALLIATIVE CARE Status: Chronic Priority: High (15) Coronary artery disease SNOMED Code(s): 24947572 Code(s): I25.10 - ATHSCL HEART DISEASE OF [place] CORONARY ARTERY W/O ANG PCTRS Status: Chronic Priority: Medium Qualifiers: Coronary Disease-Associated Artery/Lesion type: [place] artery [place] vs. transplanted heart: [place] heart Associated angina: without angina Qualified Code(s): I25.10 - Atherosclerotic heart disease of [place] coronary artery without angina pectoris (16) DNI (do not intubate) SNOMED Code(s): 590358932 Code(s): Z78.9 - OTHER SPECIFIED HEALTH STATUS Status: Chronic (17) DNR (do not resuscitate) Status: Chronic (18) Diabetes mellitus SNOMED Code(s): 03405180 Code(s): E11.9 - TYPE 2 DIABETES MELLITUS WITHOUT COMPLICATIONS Status: Chronic Priority: Medium Annotation/Comment:: Generalized weakness secondary to pneumonia with multiple falls (19) Dyslipidemia SNOMED Code(s): 705305864 Code(s): E78.5 - HYPERLIPIDEMIA, UNSPECIFIED Status: Chronic Priority: Medium (20) Exertional dyspnea SNOMED Code(s): 37178609 Code(s): R06.09 - OTHER FORMS OF DYSPNEA Status: Chronic Priority: High (21) Generalized weakness SNOMED Code(s): 20159610 Code(s): R53.1 - WEAKNESS Status: Chronic Priority: High (22) Gout SNOMED Code(s): 37210686 Code(s): M10.9 - GOUT, UNSPECIFIED Status: Chronic Priority: Low Qualifiers: Gout site: multiple sites Gout etiology: due to renal impairment Chronicity: chronic Presence of tophus: without tophus Qualified Code(s): M1A.39X0 - Chronic gout due to renal impairment, multiple sites, without tophus (tophi) (23) HTN, Benign hypertension SNOMED Code(s): 57899274 Code(s): I10 - ESSENTIAL (PRIMARY) HYPERTENSION Status: Chronic Priority : Medium (24) Heart disease SNOMED Code(s): 14511389 Code(s): I51.9 - HEART DISEASE, UNSPECIFIED Status: Chronic Priority: Medium Annotation/Comment:: (25) Hemorrhoids SNOMED Code(s): 28663089 Code(s): K64.9 - UNSPECIFIED HEMORRHOIDS Status: Chronic Priority: Medium Qualifiers: Hemorrhoid type: perianal venous thrombosis Qualified Code(s): K64.5 - Perianal venous thrombosis (26) History of ESBL Klebsiella pneumoniae infection SNOMED Code(s): 374853825 Code(s): Z86.19 - PERSONAL HISTORY OF OTHER INFECTIOUS AND PARASITIC DISEASES Status: Chronic Priority: Medium (27) Hypoalbuminemia SNOMED Code(s): 896039516 Code(s): E88.09 - OTH DISORDERS OF PLASMA-PROTEIN METABOLISM, NEC Status: Chronic Priority: Medium (28) Hypomagnesemia SNOMED Code(s): 071086760 Code(s): E83.42 - HYPOMAGNESEMIA Status: Chronic Priority: Medium Onset Date: 06/29/16 (29) Leukocytosis SNOMED Code(s): 766764209, 548795536 Code(s): D72.829 - ELEVATED WHITE BLOOD CELL COUNT, UNSPECIFIED Status: Chronic Priority: Medium Qualifiers: Leukocytosis type: unspecified Qualified Code(s): D72.829 - Elevated white blood cell count, unspecified Annotation/Comment:: Elevated white count secondary to pneumonia (30) Neuropathy SNOMED Code(s): 764778815 Code(s): G62.9 - POLYNEUROPATHY, UNSPECIFIED Status: Chronic Priority: Medium (31) Obesity (BMI 30-39.9) SNOMED Code(s): 858067163, 824290901 Code(s): E66.9 - OBESITY, UNSPECIFIED Status: Chronic Priority: Medium (32) Obstructive sleep apnea on CPAP SNOMED Code(s): 59112806 Code(s): G47.33 - OBSTRUCTIVE SLEEP APNEA (ADULT) (PEDIATRIC); Z99.89 - DEPENDENCE ON OTHER ENABLING MACHINES AND DEVICES Status: Chronic Priority: Low Annotation/Comment:: (33) Old cerebrovascular accident (CVA) without late effect SNOMED Code(s): 131436671 Code(s): Z86.73 - PRSNL HX OF TIA (TIA), AND CEREB INFRC W/O RESID DEFICITS Status: Chronic Priority: Medium (34) Osteoarthritis SNOMED Code(s): 557022215 Code(s): M19.90 - UNSPECIFIED OSTEOARTHRITIS, UNSPECIFIED SITE Status: Chronic Priority: Medium (35) Oxygen dependent SNOMED Code(s): 233654487197 Code(s): Z99.81 - DEPENDENCE ON SUPPLEMENTAL OXYGEN Status: Chronic Priority: High (36) Physical deconditioning SNOMED Code(s): 24126414269751 Code(s): R53.81 - OTHER MALAISE Status: Chronic Priority: High - Problem List Review Problem List Initiated/Reviewed/Updated: Yes - My Orders Last 24 Hours: My Active Orders 02/23/19 05:11 Abdomen 1V Flat [CR] Routine Chest 1V Frontal [CR] Routine 02/23/19 17:25 Ready for Discharge [RC] PER UNIT ROUTINE - Plan Plan:: 02/20/19 Dusty Seaman MD Fever, weakness. Pneumonia, emphysema, UTI, urinary retention (~900ml) butler in place. Continue antibiotics. C&S pending. PT-OT and discharge planning. 02/21/19 Dusty Seaman MD He does not feel well. Short of breath. Severe back pain. Constipation. Orders adjusted. Discussed and explained with him and his palliative care/hospice care. He says I hope I'm not ready for that yet. 02/22/19 Dusty Seaman MD Still with significant weakness and back pain. CT of lumbar spine pending. Labs not improving. Continue IV antibiotics. Still complain of constipation. 02/23/19 Dusty Seaman MD Now with maroon stools, Hemetest + and abdomenal pain. He initially said he did not want transfer to [facility] but now says he wants transfer to [facility]. He desires DNR/DNI status but he does want transfer to [facility]. Urine C&S today Enterococcus Faecium resistant so has not been treated. IV access difficult. Diagnosis include fall, back pain, s/p lumbar spine fusion, GI bleed, urinary retention, resistant UTI, Aspiration pneumonia, emphysema, chronic hypoxia on O2. 17:15 I called [facility]. Talked with Yolie and Dr. Juarez who will accept him for transfer. Vital signs and Hemoglobin have been stable.
--- NOTE | 2019-02-23 22:53 | PCM.DCSUM1 ---
Discharge Summary - Hospital Course Diagnosis: Stroke: No - Discharge Data Discharge Date: 02/23/19 Discharge Disposition: DC/Tfer to Acute Hospital 02 Condition: Serious - Discharge Diagnosis/Problem(s) (1) GI bleed SNOMED Code(s): 31823361 ICD Code: K92.2 - GASTROINTESTINAL HEMORRHAGE, UNSPECIFIED Status: Acute Priority: High Qualifiers: GI bleed type/associated pathology: melena Qualified Code(s): K92.1 - Melena (2) Enterococcus faecalis infection SNOMED Code(s): 862362829 ICD Code: B95.2 - ENTEROCOCCUS THE CAUSE OF DISEASES CLASSIFIED ELSEWHERE Status: Acute Priority: High (3) Pneumonia SNOMED Code(s): 783239883 ICD Code: J18.9 - PNEUMONIA, UNSPECIFIED ORGANISM Status: Acute Priority : High Problem Details: Qualifiers: Pneumonia type: due to unspecified organism Laterality: left Lung location: lower lobe of lung Qualified Code(s): J18.1 - Lobar pneumonia, unspecified organism (4) Emphysema lung SNOMED Code(s): 17792198 ICD Code: J43.9 - EMPHYSEMA, UNSPECIFIED Status: Chronic Qualifiers: Emphysema type: centrilobular Qualified Code(s): J43.2 - Centrilobular emphysema (5) Urinary retention with incomplete bladder emptying SNOMED Code(s): 303441686 ICD Code: R33.9 - RETENTION OF URINE, UNSPECIFIED Status: Acute Priority : High (6) Low back pain SNOMED Code(s): 574145805 ICD Code: M54.5 - LOW BACK PAIN Status: Acute Priority: High Qualifiers: Chronicity: acute Back pain laterality: midline Sciatica presence: without sciatica Qualified Code(s): M54.5 - Low back pain (7) Anemia SNOMED Code(s): 626859269 ICD Code: D64.9 - ANEMIA, UNSPECIFIED Status: Chronic Priority: Low Qualifiers: Anemia type: other cause Other causes of anemia: chronic disease, other Qualified Code(s): D63.8 - Anemia in other chronic diseases classified elsewhere (8) COPD (chronic obstructive pulmonary disease) SNOMED Code(s): 41264068 ICD Code: J44.9 - CHRONIC OBSTRUCTIVE PULMONARY DISEASE, UNSPECIFIED Status : Chronic Priority: High Qualifiers: COPD type: COPD with acute exacerbation Qualified Code(s): J44.1 - Chronic obstructive pulmonary disease with (acute) exacerbation (9) Chronic GERD SNOMED Code(s): 954438162, 161620922 ICD Code: K21.9 - GASTRO-ESOPHAGEAL REFLUX DISEASE WITHOUT ESOPHAGITIS Status: Chronic Priority: Medium Problem Details: Chronic GERD as per history (10) Chronic cerebral ischemia SNOMED Code(s): 626430444 ICD Code: I67.82 - CEREBRAL ISCHEMIA Status: Chronic Priority: Medium (11) Chronic diastolic (congestive) heart failure SNOMED Code(s): 571149806, 411142842 ICD Code: I50.32 - CHRONIC DIASTOLIC (CONGESTIVE) HEART FAILURE Status: Chronic Priority: Medium (12) Chronic kidney disease (CKD) SNOMED Code(s): 924213236 ICD Code: N18.9 - CHRONIC KIDNEY DISEASE, UNSPECIFIED Status: Chronic Priority: Low Qualifiers: Chronic kidney disease stage: unspecified stage Qualified Code(s): N18.9 - Chronic kidney disease, unspecified (13) Chronic respiratory failure with hypoxia SNOMED Code(s): 654336983 ICD Code: J96.11 - CHRONIC RESPIRATORY FAILURE WITH HYPOXIA Status: Chronic Priority: High Problem Details: Oxygen dependent COPD (14) Comfort measures only status SNOMED Code(s): 00488456830680 ICD Code: Z51.5 - ENCOUNTER FOR PALLIATIVE CARE Status: Chronic Priority : High (15) Coronary artery disease SNOMED Code(s): 66252515 ICD Code: I25.10 - ATHSCL HEART DISEASE OF [place] CORONARY ARTERY W/O ANG PCTRS Status: Chronic Priority: Medium Qualifiers: Coronary Disease-Associated Artery/Lesion type: [place] artery [place] vs. transplanted heart: [place] heart Associated angina: without angina Qualified Code(s): I25.10 - Atherosclerotic heart disease of [place] coronary artery without angina pectoris (16) DNI (do not intubate) SNOMED Code(s): 136149216 ICD Code: Z78.9 - OTHER SPECIFIED HEALTH STATUS Status: Chronic (17) DNR (do not resuscitate) Status: Chronic (18) Diabetes mellitus SNOMED Code(s): 88234277 ICD Code: E11.9 - TYPE 2 DIABETES MELLITUS WITHOUT COMPLICATIONS Status: Chronic Priority: Medium Problem Details: Generalized weakness secondary to pneumonia with multiple falls (19) Dyslipidemia SNOMED Code(s): 172892987 ICD Code: E78.5 - HYPERLIPIDEMIA, UNSPECIFIED Status: Chronic Priority: Medium (20) Exertional dyspnea SNOMED Code(s): 01004631 ICD Code: R06.09 - OTHER FORMS OF DYSPNEA Status: Chronic Priority: High (21) Generalized weakness SNOMED Code(s): 51362374 ICD Code: R53.1 - WEAKNESS Status: Chronic Priority: High (22) Gout SNOMED Code(s): 91360808 ICD Code: M10.9 - GOUT, UNSPECIFIED Status: Chronic Priority: Low Qualifiers: Gout site: multiple sites Gout etiology: due to renal impairment Chronicity: chronic Presence of tophus: without tophus Qualified Code(s): M1A.39X0 - Chronic gout due to renal impairment, multiple sites, without tophus (tophi) (23) HTN, Benign hypertension SNOMED Code(s): 73570761 ICD Code: I10 - ESSENTIAL (PRIMARY) HYPERTENSION Status: Chronic Priority : Medium (24) Heart disease SNOMED Code(s): 48308594 ICD Code: I51.9 - HEART DISEASE, UNSPECIFIED Status: Chronic Priority: Medium Problem Details: (25) Hemorrhoids SNOMED Code(s): 76955616 ICD Code: K64.9 - UNSPECIFIED HEMORRHOIDS Status: Chronic Priority: Medium Qualifiers: Hemorrhoid type: perianal venous thrombosis Qualified Code(s): K64.5 - Perianal venous thrombosis (26) History of ESBL Klebsiella pneumoniae infection SNOMED Code(s): 866587018 ICD Code: Z86.19 - PERSONAL HISTORY OF OTHER INFECTIOUS AND PARASITIC DISEASES Status: Chronic Priority: Medium (27) Hypoalbuminemia SNOMED Code(s): 034343943 ICD Code: E88.09 - OT DISORDERS OF PLASMA-PROTEIN METABOLISM, NEC Status: Chronic Priority: Medium (28) Hypomagnesemia SNOMED Code(s): 982162944 ICD Code: E83.42 - HYPOMAGNESEMIA Status: Chronic Priority: Medium Onset Date: 06/29/16 (29) Leukocytosis SNOMED Code(s): 264806817, 481673233 ICD Code: D72.829 - ELEVATED WHITE BLOOD CELL COUNT, UNSPECIFIED Status: Chronic Priority: Medium Problem Details: Elevated white count secondary to pneumonia Qualifiers: Leukocytosis type: unspecified Qualified Code(s): D72.829 - Elevated white blood cell count, unspecified (30) Neuropathy SNOMED Code(s): 298989025 ICD Code: G62.9 - POLYNEUROPATHY, UNSPECIFIED Status: Chronic Priority: Medium (31) Obesity (BMI 30-39.9) SNOMED Code(s): 656646980, 206901265 ICD Code: E66.9 - OBESITY, UNSPECIFIED Status: Chronic Priority: Medium (32) Obstructive sleep apnea on CPAP SNOMED Code(s): 94930241 ICD Code: G47.33 - OBSTRUCTIVE SLEEP APNEA (ADULT) (PEDIATRIC); Z99.89 - DEPENDENCE ON OTHER ENABLING MACHINES AND DEVICES Status: Chronic Priority: Low Problem Details: (33) Old cerebrovascular accident (CVA) without late effect SNOMED Code(s): 163154417 ICD Code: Z86.73 - PRSNL HX OF TIA (TIA), AND CEREB INFRC W/O RESID DEFICITS Status: Chronic Priority: Medium (34) Osteoarthritis SNOMED Code(s): 566654772 ICD Code: M19.90 - UNSPECIFIED OSTEOARTHRITIS, UNSPECIFIED SITE Status: Chronic Priority: Medium (35) Oxygen dependent SNOMED Code(s): 539737388870 ICD Code: Z99.81 - DEPENDENCE ON SUPPLEMENTAL OXYGEN Status: Chronic Priority: High (36) Physical deconditioning SNOMED Code(s): 77042957299430 ICD Code: R53.81 - OTHER MALAISE Status: Chronic Priority: High - Patient Summary/Data Consults: Consultations 02/20/19 07:20 Consult to Physical Therapy [PT Evaluation and Treatment] [CONS] Routine 02/20/19 07:21 OT Evaluation and Treatment [CONS] Routine 02/21/19 08:00 Consult to Case Management/Pharmacy Technician Program Director [CONS] Routine - Patient Instructions Diet: Clear Liquid Diet Activity: Bedrest Driving: Do Not Drive Showering/Bathing: No Showering Other/Special Instructions: Dr. Juarez hospitalist at [facility] agrees to accept him for transfer. - Discharge Plan *PRESCRIPTION DRUG MONITORING PROGRAM REVIEWED*: Not Applicable *COPY OF PRESCRIPTION DRUG MONITORING REPORT IN PATIENT SG: Not Applicable Home Medications: Home Meds Arformoterol [Brovana] 2 ml INH BID 05/04/14 [History] Gabapentin [Neurontin] 300 mg PO TID 05/04/14 [History] Multivitamin [Multivitamins] 1 tab PO DAILY 05/04/14 [History] Omeprazole 20 mg PO BID 05/04/14 [History] Isosorbide Mononitrate [Imdur] 60 mg PO DAILY 10/26/16 [History] Allopurinol [Zyloprim] 300 mg PO QAM 06/13/17 [History] Cholecalciferol (Vitamin D3) [Vitamin D3] 1,000 unit PO DAILY 06/13/17 [History] Docusate Sodium [Colace] 100 mg PO BID 12/28/17 [History] Acetaminophen [Tylenol] 650 mg PO Q4H PRN 05/13/18 [History] Albuterol/Ipratropium [DuoNeb 3.0-0.5 MG/3 ML] 3 ml NEB QID 05/13/18 [History] Magnesium Oxide [Magnesium] 400 mg PO BID 05/13/18 [History] Tamsulosin HCl [Flomax] 0.4 mg PO DAILY 06/13/18 [History] Insulin Detemir [Levemir Flextouch] 20 units SUBCUT BEDTIME #1 06/19/18 [Rx] Insulin Aspart [NovoLOG] 8 unit SQ TID@0800,1200,1800 09/03/18 [History] Polyvinyl Alcohol [LiquiTears 1.4% Ophth Soln] 1 drop EYEBOTH DAILY 09/03/18 [ History] Carvedilol [Coreg] 12.5 mg PO BID 12/26/18 [History] Cyanocobalamin (Vitamin B-12) [B-12] 1,000 mcg PO DAILY 12/26/18 [History] Furosemide 40 mg PO BID@08,14 12/26/18 [History] Hydrocortisone [Hydrocortisone 2.5% Crm] 1 applicful RECTAL BID 12/26/18 [ History] Potassium Chloride [Potassium Chloride Solution] 20 meq PO DAILY 12/26/18 [ History] guaiFENesin/Dextromethorphan [Safetussin DM] 10 ml PO QID 12/26/18 [History] Iron,Carbonyl/Ascorbic Acid [Vitron-C Tablet] 1 each PO BID 01/21/19 [History] Loratadine [Claritin] 10 mg PO DAILY 01/21/19 [History] predniSONE [Prednisone] 40 mg PO DAILY #30 tablet 01/25/19 [Rx] Sulfamethoxazole/Trimethoprim [Bactrim Ds Tablet] 1 each PO Q48H 02/19/19 [ History] Oxygen Therapy Mode: Nasal Cannula Oxygen Flow Rate (L/min): 2.5 Referrals: Aixa Veronica MD [Primary Care Provider] - - Discharge Summary/Plan Comment DC Time >30 min.: No - Patient Data Vitals - Most Recent: Last Vital Signs Temp 98.2 F 02/23/19 15:38 Pulse 91 02/23/19 15:38 Resp 17 02/23/19 15:38 BP 141/59 H 02/23/19 15:38 Pulse Ox 97 02/23/19 15:38 Weight - Most Recent: 270 lb I&O - Last 24 hours: Intake & Output 02/23/19 02/23/19 02/23/19 06:59 14:59 22:59 Intake Total 200 360 710 Output Total 300 575 Balance -100 -215 710 Lab Results - Last 24 hrs: Laboratory Results - last 24 hr 02/23/19 02/23/19 02/23/19 Range/Units 06:58 07:20 07:30 WBC 17.0 H (4.0-10.2) K/uL RBC 2.68 L (4.33-5.41) M/uL Hgb 9.9 L (13.1-16.8) g/dL Hct 29.4 L (39.0-49.0) % MCV 109.7 H (84.0-98.0) fL MCH 36.9 H (28.2-33.3) pg MCHC 33.7 (31.7-36.0) g/dL RDW 17.8 H (11.2-14.1) % Plt Count 123 L (150-350) K/uL MPV (7.00-11.50) fL Neut % (Auto) 74.6 (45.0-80.0) % Lymph % (Auto) 13.3 (10.0-50.0) % [place] % (Auto) 11.2 (2.0-14.0) % Eos % (Auto) 0.7 (0.0-5.0) % Baso % (Auto) 0.2 (0.0-2.0) % Neut # (Auto) 12.64 H (1.40-7.00) K/uL Lymph # (Auto) 2.25 (0.50-3.50) K/uL [place] # (Auto) 1.90 H (0.00-1.00) K/uL Eos # (Auto) 0.12 (0.00-0.50) K/uL Baso # (Auto) 0.04 (0.00-0.20) K/uL ESR 114 H (0-20) mm/hr Sodium 133 L (136-145) mmol/L Potassium 4.1 (3.5-5.1) mmol/L Chloride 97 L (98-107) mmol/L Carbon Dioxide 30.9 (21.0-32.0) mmol/L BUN 41 H (7-18) mg/dL Creatinine 1.46 H (0.51-1.17) mg/dL Est Cr Clr Drug Dosing 43.64 mL/min Estimated GFR (MDRD) 46 mL/min Glucose 160 H (74-106) mg/dL POC Glucose 183 H (65-110) mg/dl Calcium 8.3 L (8.5-10.1) mg/dL Total Bilirubin 0.7 (0.2-1.0) mg/dL AST 21 (15-37) U/L ALT 35 (12-78) U/L Alkaline Phosphatase 101 (46-116) IU/L C-Reactive Protein 24.1 H (<=0.9) mg/dL NT-Pro-B Natriuret Pep 1697 H (0-125) pg/mL Total Protein 5.5 L (6.4-8.2) g/dL Albumin 2.1 L (3.4-5.0) g/dL Blood Type Gel Antibody Screen 02/23/19 02/23/19 02/23/19 Range/Units 11:28 11:50 12:00 WBC 15.9 H (4.0-10.2) K/uL RBC 2.65 L (4.33-5.41) M/uL Hgb 9.6 L (13.1-16.8) g/dL Hct 29.7 L (39.0-49.0) % MCV 112.1 H (84.0-98.0) fL MCH 36.2 H (28.2-33.3) pg MCHC 32.3 (31.7-36.0) g/dL RDW 17.8 H (11.2-14.1) % Plt Count 126 L (150-350) K/uL MPV 9.50 (7.00-11.50) fL Neut % (Auto) (45.0-80.0) % Lymph % (Auto) (10.0-50.0) % [place] % (Auto) (2.0-14.0) % Eos % (Auto) (0.0-5.0) % Baso % (Auto) (0.0-2.0) % Neut # (Auto) (1.40-7.00) K/uL Lymph # (Auto) (0.50-3.50) K/uL [place] # (Auto) (0.00-1.00) K/uL Eos # (Auto) (0.00-0.50) K/uL Baso # (Auto) (0.00-0.20) K/uL ESR (0-20) mm/hr Sodium (136-145) mmol/L Potassium (3.5-5.1) mmol/L Chloride (98-107) mmol/L Carbon Dioxide (21.0-32.0) mmol/L BUN (7-18) mg/dL Creatinine (0.51-1.17) mg/dL Est Cr Clr Drug Dosing mL/min Estimated GFR (MDRD) mL/min Glucose (74-106) mg/dL POC Glucose 194 H (65-110) mg/dl Calcium (8.5-10.1) mg/dL Total Bilirubin (0.2-1.0) mg/dL AST (15-37) U/L ALT (12-78) U/L Alkaline Phosphatase (46-116) IU/L C-Reactive Protein (<=0.9) mg/dL NT-Pro-B Natriuret Pep (0-125) pg/mL Total Protein (6.4-8.2) g/dL Albumin (3.4-5.0) g/dL Blood Type A POSITIVE Gel Antibody Screen Negative 02/23/19 02/23/19 Range/Units 16:54 17:42 WBC 17.4 H (4.0-10.2) K/uL RBC 2.70 L (4.33-5.41) M/uL Hgb 9.9 L (13.1-16.8) g/dL Hct 30.1 L (39.0-49.0) % MCV 111.5 H (84.0-98.0) fL MCH 36.7 H (28.2-33.3) pg MCHC 32.9 (31.7-36.0) g/dL RDW 18.0 H (11.2-14.1) % Plt Count 132 L (150-350) K/uL MPV 10.00 (7.00-11.50) fL Neut % (Auto) (45.0-80.0) % Lymph % (Auto) (10.0-50.0) % [place] % (Auto) (2.0-14.0) % Eos % (Auto) (0.0-5.0) % Baso % (Auto) (0.0-2.0) % Neut # (Auto) (1.40-7.00) K/uL Lymph # (Auto) (0.50-3.50) K/uL [place] # (Auto) (0.00-1.00) K/uL Eos # (Auto) (0.00-0.50) K/uL Baso # (Auto) (0.00-0.20) K/uL ESR (0-20) mm/hr Sodium (136-145) mmol/L Potassium (3.5-5.1) mmol/L Chloride (98-107) mmol/L Carbon Dioxide (21.0-32.0) mmol/L BUN (7-18) mg/dL Creatinine (0.51-1.17) mg/dL Est Cr Clr Drug Dosing mL/min Estimated GFR (MDRD) mL/min Glucose (74-106) mg/dL POC Glucose 205 H (65-110) mg/dl Calcium (8.5-10.1) mg/dL Total Bilirubin (0.2-1.0) mg/dL AST (15-37) U/L ALT (12-78) U/L Alkaline Phosphatase (46-116) IU/L C-Reactive Protein (<=0.9) mg/dL NT-Pro-B Natriuret Pep (0-125) pg/mL Total Protein (6.4-8.2) g/dL Albumin (3.4-5.0) g/dL Blood Type Gel Antibody Screen EMERY Results - Last 24 hrs: Microbiology 02/19/19 12:40 Aerobic Blood Culture - Preliminary Blood NO GROWTH AFTER 4 DAYS Anaerobic Blood Culture - Preliminary NO GROWTH AFTER 4 DAYS 02/19/19 16:30 Urine Culture - Final Urine, Catheterized Enterococcus Faecium 02/23/19 07:55 Stool Occult Blood (EMERY) - Final Stool / Feces Med Orders - Current: Current Medications Discontinued Medications Acetaminophen (Tylenol) 650 mg PO Q4H PRN PRN Reason: Pain Last Admin: 02/23/19 13:44 Dose: 650 mg Hydrocodone Bitart/Acetaminophen ([place]rell 325-5 Mg) 1 tab PO Q6H PRN PRN Reason: Pain (moderate 4-6) Last Admin: 02/23/19 17:59 Dose: 1 tab Albuterol/Ipratropium (Duoneb 3.0-0.5 Mg/3 Ml) 3 ml NEB QID [facility] Last Admin: 02/23/19 15:18 Dose: 3 ml Albuterol/Ipratropium (Duoneb 3.0-0.5 Mg/3 Ml) 3 ml NEB Q4HRRT PRN PRN Reason: Shortness of Breath Last Admin: 02/23/19 02:19 Dose: 3 ml Allopurinol (Zyloprim) 300 mg PO QAM [facility] Last Admin: 02/23/19 09:09 Dose: Not Given Arformoterol Tartrate (Brovana) 15 mcg INH BID [facility] Last Admin: 02/20/19 07:23 Dose: 15 mcg Arformoterol Tartrate (Brovana) 15 mcg INH Q12HR [facility] Last Admin: 02/22/19 19:11 Dose: 15 mcg Artificial Tears (Liquitears 1.4% Ophth Soln) 0 ml EYEBOTH DAILY [facility] Last Admin: 02/23/19 07:37 Dose: 1 drop Bisacodyl (Dulcolax) 10 mg RECTAL DAILY PRN PRN Reason: Constipation Last Admin: 02/22/19 15:47 Dose: 10 mg Carvedilol (Coreg) 12.5 mg PO BID [facility] Last Admin: 02/20/19 17:26 Dose: 12.5 mg Carvedilol (Coreg) 12.5 mg PO Q12HR [facility] Last Admin: 02/23/19 07:36 Dose: 12.5 mg Cholecalciferol (Vitamin D3) 25 mcg PO DAILY [facility] Last Admin: 02/22/19 08:17 Dose: 25 mcg Cyanocobalamin (Vitamin B12) 1,000 mcg PO DAILY [facility] Last Admin: 02/22/19 08:16 Dose: 1,000 mcg Docusate Sodium (Colace) 100 mg PO BID [facility] Last Admin: 02/22/19 17:12 Dose: 100 mg Enoxaparin Sodium (Lovenox) 40 mg SUBCUT DAILY [facility] Last Admin: 02/21/19 07:50 Dose: 40 mg Enoxaparin Sodium (Lovenox) 30 mg SUBCUT DAILY [facility] Last Admin: 02/22/19 08:03 Dose: 30 mg Finasteride (Proscar) 5 mg PO DAILY [facility] Last Admin: 02/23/19 09:09 Dose: Not Given Furosemide (Lasix) 40 mg PO BID@08,14 [facility] Last Admin: 02/21/19 07:48 Dose: 40 mg Furosemide (Lasix) 40 mg PO DAILY [facility] Last Admin: 02/22/19 08:17 Dose: 40 mg Furosemide (Lasix) 40 mg IVPUSH BIDDIURETIC [facility] Last Admin: 02/23/19 12:14 Dose: 40 mg Gabapentin (Neurontin) 300 mg PO TID [facility] Last Admin: 02/23/19 09:09 Dose: Not Given Guaifenesin/Dextromethorphan (Robitussin Dm) 10 ml PO QID [facility] Last Admin: 02/22/19 11:41 Dose: 10 ml Guaifenesin/Dextromethorphan (Robitussin Dm) 20 ml PO QID [facility] Last Admin: 02/23/19 15:18 Dose: 20 ml Hydrocortisone (Proctozone-Hc 2.5% Crm) 1 gm TOP BID [facility] Last Admin: 02/20/19 07:20 Dose: 1 applic Hydrocortisone (Proctozone-Hc 2.5% Crm) 0 gm TOP BID PRN PRN Reason: Hemorrhoids Hydromorphone HCl (Dilaudid) 1 mg IVPUSH Q1H PRN PRN Reason: back pain Last Admin: 02/19/19 09:27 Dose: 1 mg Lactated Ringer's (Ringers, Lactated) 1,000 mls @ 125 mls/hr IV ASDIRECTED [facility] Last Admin: 02/19/19 12:53 Dose: 125 mls/hr Levofloxacin/Dextrose 500 mg/ (Premix) 100 mls @ 100 mls/hr IV Q24H [facility] Last Admin: 02/23/19 12:14 Dose: 100 mls/hr Piperacillin Sod/Tazobactam (Sod 3.375 gm/ Sodium Chloride) 100 mls @ 200 mls/ hr IV Q6H [facility] Last Admin: 02/20/19 17:21 Dose: 200 mls/hr Metronidazole 500 mg/ Premix 100 mls @ 100 mls/hr IV Q8H [facility] Last Admin: 02/23/19 13:43 Dose: 100 mls/hr Pantoprazole Sodium 80 mg/ (Sodium Chloride) 100 mls @ 10 mls/hr IV .Continuous [facility] Last Admin: 02/23/19 08:58 Dose: 10 mls/hr Sodium Chloride (Normal Saline) 500 mls @ 20 mls/hr IV ASDIRECTED [facility] Last Admin: 02/23/19 08:58 Dose: 20 mls/hr Insulin Glargine (Lantus) 20 unit SUBCUT BEDTIME [facility] Last Admin: 02/22/19 19:17 Dose: 20 units Insulin Human Lispro (Humalog) 8 unit SUBCUT TID@0800,1200,1800 [facility] Last Admin: 02/23/19 09:09 Dose: Not Given Isosorbide Mononitrate (Imdur) 60 mg PO DAILY [facility] Last Admin: 02/23/19 07:36 Dose: 60 mg Loratadine (Claritin) 10 mg PO DAILY [facility] Last Admin: 02/22/19 08:15 Dose: 10 mg Magnesium Citrate (Citrate Of Magnesia) 296 ml PO ONETIME ONE Stop: 02/23/19 08:01 Magnesium Hydroxide (Milk Of Magnesia) 30 ml PO DAILY PRN PRN Reason: Constipation Last Admin: 02/21/19 08:51 Dose: 30 ml Magnesium Oxide (Magnesium Oxide) 400 mg PO BID [facility] Last Admin: 02/23/19 09:09 Dose: Not Given Multivitamins/Minerals/Vitamin C (Tab-A-Prisca) 1 tab PO DAILY [facility] Last Admin: 02/22/19 08:15 Dose: 1 tab Non-Formulary Medication (Iron,Carbonyl/Ascorbic Acid [Vitron-C Tablet]) 1 each PO BID [facility] Last Admin: 02/23/19 14:37 Dose: Not Given Omeprazole (Omeprazole) 20 mg PO BID [facility] Last Admin: 02/23/19 09:09 Dose: Not Given Ondansetron HCl (Zofran Odt) 4 mg PO Q6H PRN PRN Reason: Nausea/Vomiting Polyethylene Glycol (Miralax) 17 gm PO ONETIME ONE Stop: 02/23/19 08:01 Potassium Chloride (Potassium Chloride Solution) 20 meq PO DAILY [facility] Last Admin: 02/23/19 09:09 Dose: Not Given Prednisone (Prednisone) 40 mg PO DAILY [facility] Last Admin: 02/20/19 07:29 Dose: 40 mg Senna/Docusate Sodium (Senna Plus) 2 tab PO BID [facility] Last Admin: 02/23/19 09:09 Dose: Not Given Sodium Chloride (Saline Flush) 10 ml FLUSH ASDIRECTED PRN PRN Reason: Keep Vein Open Last Admin: 02/20/19 21:14 Dose: 10 ml Sodium Chloride (Saline Flush) 10 ml FLUSH ASDIRECTED PRN PRN Reason: Keep Vein Open Last Admin: 02/23/19 13:49 Dose: 10 ml Sodium Chloride (Saline Flush) 10 ml FLUSH Q12HR [facility] Last Admin: 02/23/19 12:16 Dose: 10 ml Tamsulosin HCl (Flomax) 0.4 mg PO DAILY [facility] Last Admin: 02/20/19 07:26 Dose: 0.4 mg Tamsulosin HCl (Flomax) 0.8 mg PO BEDTIME [facility] Last Admin: 02/22/19 19:12 Dose: 0.8 mg
== END 2019-02-23 18:12 | DRG 551 ==
LOC: LL.ED 08:49 → UNDOADMIN 10:38 → LL.MS 10:38 → UNDODISIN 02-23 18:12
PROVIDERS: ADMIT Family Medicine; ATTEND Family Medicine
DX: M54.5 Low back pain (principal); J18.1 Lobar pneumonia, unspecified organism; K92.1 Melena; I67.82 Cerebral ischemia; R53.1 Weakness; E11.9 Type 2 diabetes mellitus without complications; J96.11 Chronic respiratory failure with hypoxia; N39.0 Urinary tract infection, site not specified; I13.0 Hypertensive heart and chronic kidney disease with heart failure and stage 1 through stage 4 chronic kidney disease, or unspecified chronic kidney disease; I50.32 Chronic diastolic (congestive) heart failure; B95.2 Enterococcus as the cause of diseases classified elsewhere; J43.2 Centrilobular emphysema; D63.8 Anemia in other chronic diseases classified elsewhere; Z99.81 Dependence on supplemental oxygen; K21.9 Gastro-esophageal reflux disease without esophagitis; E66.9 Obesity, unspecified; Z66 Do not resuscitate; E11.22 Type 2 diabetes mellitus with diabetic chronic kidney disease; E78.5 Hyperlipidemia, unspecified; M1A.39X0 Chronic gout due to renal impairment, multiple sites, without tophus (tophi); K64.5 Perianal venous thrombosis; E83.42 Hypomagnesemia; D72.829 Elevated white blood cell count, unspecified; E11.42 Type 2 diabetes mellitus with diabetic polyneuropathy; I25.10 Atherosclerotic heart disease of native coronary artery without angina pectoris; E11.21 Type 2 diabetes mellitus with diabetic nephropathy; N40.0 Benign prostatic hyperplasia without lower urinary tract symptoms; M81.0 Age-related osteoporosis without current pathological fracture; I87.8 Other specified disorders of veins; M19.90 Unspecified osteoarthritis, unspecified site; E11.319 Type 2 diabetes mellitus with unspecified diabetic retinopathy without macular edema; E78.00 Pure hypercholesterolemia, unspecified; K59.09 Other constipation; Z86.19 Personal history of other infectious and parasitic diseases; N18.9 Chronic kidney disease, unspecified; Z86.73 Personal history of transient ischemic attack (TIA), and cerebral infarction without residual deficits; Z90.89 Acquired absence of other organs; G47.33 Obstructive sleep apnea (adult) (pediatric); J44.9 Chronic obstructive pulmonary disease, unspecified; Z98.41 Cataract extraction status, right eye; Z98.42 Cataract extraction status, left eye; Z90.79 Acquired absence of other genital organ(s); Z87.891 Personal history of nicotine dependence; Z68.37 Body mass index [BMI] 37.0-37.9, adult; Z79.4 Long term (current) use of insulin; Z79.52 Long term (current) use of systemic steroids; Z79.899 Other long term (current) drug therapy; Z88.8 Allergy status to other drugs, medicaments and biological substances
CPT/HCPCS: 36415; 71045; 72100; 72170; 80053; 83880; 85025; 96374; 99285; J1170; 51702; 72131; 74018; 80171; 81001; 82272; 82803; 82962; 83735; 84153; 84550; 85027; 85652; 86140; 86850; 86900; 86901; 87040; 87086; 87088; 87186; 94640; 97110-GO; 97110-GP; 97163-GP; 97165-GO; 97530-GO; 97530-GP; 99223; A9270-GY; C9113; J1650; J1815; J1815-GY; J1940; J1956; J2543; J3490; J7040; J7050; J7120; J7620-GY